=== PATIENT | female | born 1950 | race Caucasian/White ===

== ENCOUNTER 2016-05-27 19:26 | Inpatient (IN) | payer MEDICARE ==
[~2016-05-27] VITALS: Ht 165.1 cm; Wt 84.0 kg
[2016-05-27] VITALS (10 sets, daily range): BP systolic 142–176; BP diastolic 64–77; PULSE 58–87; RESP 14; TEMP 94.5–95.4; O2SAT 97–100
[2016-05-27] MEDS ORDERED: niCARdipine INJ 25 MG in SODIUM CHLOR 0.9% 250 ML INJ 250 ML IV SCH (19:45)
[2016-05-27] MEDS ORDERED: SODIUM CHLOR 0.9% 1000 ML INJ 1,000 ML IV SCH (20:00)
[2016-05-27] MEDS ORDERED: XARE20TA PO (20:05)
[2016-05-27] MEDS ORDERED: ATOR20TA15 PO (20:05)
[2016-05-27] MEDS ORDERED: LOSA100T3 PO (20:05)
[2016-05-27] MEDS ORDERED: METO25TA3 PO (20:05)
--- NOTE | 2016-05-27 20:11 | RADRPT ---
EXAM DATE/TIME: 05/27/2016 20:01 [facility] COMPARISON: No previous studies available for comparison. INDICATIONS : Intubation MEDICAL HISTORY : Unobtainable SURGICAL HISTORY : Unobtainable ENCOUNTER: Initial ACUITY: 1 day PAIN SCORE: Non-responsive. LOCATION: Bilateral chest FINDINGS: A single view of the chest demonstrates the lungs to be symmetrically aerated without evidence of mas s, infiltrate or effusion. Endotracheal tube 3.5 cm above the kwan. Nasogastric tube with tip in s tomach. The cardiomediastinal contours are unremarkable. Osseous structures are intact. CONCLUSION: No acute disease. Adequate placement of endotracheal tube. Juvencio Encarnacion MD on May 27, 2016 at 20:08 Board Certified Radiologist. This report was verified electronically.
--- NOTE | 2016-05-27 20:16 | PD ---
HPI Chief Complaint: Neuro Symptoms/ Deficits Time Seen by Provider: 19:39 Travel History International Travel<30 days: No Contact w/Intl Traveler<30days: No Traveled to known affect area: No History of Present Illness HPI 66 years old female was transferred to [facility] from [facility] in [place]. Patient and the was vacationing from [place]. Patient and was on the train. Patient's states that around 2:00 this afternoon when patient started having severe headache and then vomited and then had a syncopal episode. The train stopped. EMS was called. EMS personnel state that patient had altered status was able to follow commands and beginning without focal neurological deficit. Patient was transported to [facility] in [place]. On the way to the hospital, patient started having respiratory problem and patient was subsequently intubated. Patient has history of atrial fibrillation and hypertension and on Xarelto 20 mg daily, atorvastatin, HCTZ/ losartan, metoprolol. CT scan of the brain done at [facility] in [place] shows hemorrhage with intraventricular system and subarachnoid space and early obstructive hydrocephalus developing. Dr. Mtz, neurosurgeon at [place] was contacted and accepted transfer. Patient was transferred by air to [facility]. Patient arrived to the hospital intubated and unresponsive. Patient originally was put given propofol and Cardene drip. Cardene drip and propofol was stopped secondary to hypotension on the way to the ED. PFSH Past Medical History Hx Anticoagulant Therapy: Yes Atrial Fibrillation: Yes High Cholesterol: Yes Hypertension: Yes Immunizations Current: Yes Influenza Vaccination: Yes : 2 Para: 2 Social History Alcohol Use: Yes (social) Tobacco Use: No Substance Use: No Allergies-Medications (Allergen,Severity, Reaction): Coded Allergies: UNOBTAINABLE (Unverified , 05/27/16) pt intubated, states he believes she may be but is unsure as to what. Review of Systems ROS Limitations: Altered Mental Status, Unresponsive General / Constitutional: No: Fever Eyes: No: Visual changes HENT: Positive: Headaches Cardiovascular: No: Chest Pain or Discomfort Respiratory: No: Shortness of Breath Gastrointestinal: Positive: Vomiting, No: Abdominal Pain Genitourinary: No: Dysuria Musculoskeletal: No: Pain Skin: No Rash Neurologic: No: Weakness Psychiatric: No: Depression Endocrine: No: Polydipsia Hematologic/Lymphatic: No: Easy Bruising Physical Exam Narrative GENERAL: Well-nourished, well-developed patient. SKIN: Warm and dry. HEAD: Normocephalic. EYES: No scleral icterus. No injection or drainage. Pupils 1.5 mm nonreactive bilaterally NECK: Supple, trachea midline. No JVD or lymphadenopathy. CARDIOVASCULAR: Irregularly irregular rate and rhythm without murmurs, gallops, or rubs. RESPIRATORY: Breath sounds equal bilaterally. Patient's intubated GASTROINTESTINAL: Abdomen soft, nondistended. MUSCULOSKELETAL: No cyanosis, or edema. BACK: No obvious trauma. Neurologic exam: Patient's intubated. Deep tendon reflexes 2+ and equal. Negative Babinski bilaterally. Data Data Last Documented VS Vital Signs Date Time Temp Pulse Resp B/P Pulse Ox O2 Delivery O2 Flow Rate FiO2 05/27/16 19:39 98 50 05/27/16 19:38 87 14 142/75 Orders Electrocardiogram (05/27/16 19:41) Complete Blood Count With Diff (05/27/16 19:41) Comprehensive Metabolic Panel (05/27/16 19:41) Prothrombin Time / Inr (Pt) (05/27/16 19:41) Act Partial Throm Time (Ptt) (05/27/16 19:41) Urinalysis - C+S If Indicated (05/27/16 19:41) Thyroid Stimulating Hormone (05/27/16 19:41) Chest, Single Ap (05/27/16 19:41) Iv Access Insert/Monitor (05/27/16 19:41) Ecg Monitoring (05/27/16 19:41) Oximetry (05/27/16 19:41) Nicardipine Inj (Cardene Inj) (05/27/16 19:45) Propofol 1000 Mg/100 Ml Inj (Diprivan 10 (05/27/16 19:45) ^ Infusion (05/27/16 19:43) RASS (05/27/16 19:43) Neurological Rass Scale AGUSTIN.Q2H (05/27/16 19:43) Sodium Chlor 0.9% 1000 Ml Inj (Ns 1000 M (05/27/16 20:00) MDM Medical Decision Making Medical Screen Exam Complete: Yes Emergency Medical Condition: Yes Interpretation(s) 2016 p.m. EKG shows atrial ablation with aberrant conduction and PVCs. Differential Diagnosis Differential diagnosis including intracranial hemorrhage. Narrative Course 66 years old female with intracranial hemorrhage. Patient is on Xarelto. Patient will be admitted to [facility] by pharmacy services director and consult neurosurgeon. Ran Hummel MD May 27, 2016 20:16
[2016-05-27] MEDS: PROPOFOL 1000 MG/100 ML INJ 100 ML IV SCH ×2 (20:17→22:09)
[2016-05-27 20:30] LABS: AUTOMATED NEUTROPHIL # 13.6 TH/MM3 (1.8-7.7); BASOPHIL % 0.3 % (0.0-2.0); EOSINOPHIL % 0.1 % (0.0-4.0); HEMATOCRIT 43.8 % (35.0-46.0); LYMPH % 6.9 % (9.0-44.0); LYMPHOCYTE # 1.1 TH/MM3 (1.0-4.8); MEAN CELL VOLUME 92.4 FL (80.0-100.0); MEAN CORPUSCULAR HEMOGLOBIN 31.3 PG (27.0-34.0); MEAN CORPUSCULAR HGB CONC 33.9 % (32.0-36.0); MONO % 5.9 % (0.0-8.0); NEUT % 86.8 % (16.0-70.0); PLATELET COUNT 254 TH/MM3 (150-450); RED BLOOD COUNT 4.75 MIL/MM3 (4.00-5.30); RED CELL DISTRIBUTION WIDTH 13.6 % (11.6-17.2); WHITE BLOOD COUNT 15.7 TH/MM3 (4.0-11.0)
[2016-05-27 20:32] LABS: HEMO FLAGS AUTO DIFF
[2016-05-27 20:36] LABS: BLOOD, URINE SMALL (NEG); COMMENT (UR) CULT NOT INDICATED; CULTURE IF INDICATED CULT NOT INDICATED; GLUCOSE,URINE 300 mg/dL (NEG); KETONE, URINE 10 mg/dL (NEG); NITRITE,URINE NEG (NEG); URINE COLOR COLORLESS (YELLW/STRAW)
--- NOTE | 2016-05-27 20:39 | PD.CONS ---
HPI Service Neurosurgery Consult Requested By Dr Hummel Reason for Consult Subarachnoid hemorrhage Primary Care Physician Unknown History of Present Illness This is a 66 years old female was transferred to [facility] from [facility] for a subarachnoid hemorrhage. The patient and the was vacationing from [place]. They were on the train. Patient's states that around 2:00 this afternoon she suddenly developed severe headache and then vomited, and then had a syncopal episode. The train stopped. EMS was called. EMS personnel state that patient had altered status was able to follow commands and beginning without focal neurological deficit. No seizure activity. No tongue bitting. No tonic clonic movements. no incontinence of stool or urine. She was transported to [facility] in [place]. On the way to the hospital, she developed respiratory problem and patient was subsequently endotracheally intubated. She has history of atrial fibrillation and hypertension and was anticoagulated with Xarelto 20 mg daily. In addition she takes atorvastatin, HCTZ/ losartan, metoprolol. CT scan of the brain done at [facility] in [place] shows extensive subarachnoid and intraventricular hemorrhage with early obstructive hydrocephalus developing. She was placed given propofol and Cardene drip. Cardene drip and propofol was stopped secondary to hypotension on the way to the ED. Neurosurgical consultation was requested Review of Systems ROS Limitations: Clinical Condition, Intubated, Altered Mental Status Past Family Social History Allergies: Coded Allergies: UNOBTAINABLE (Unverified , 05/27/16) pt intubated, states he believes she may be but is unsure as to what. Past Medical History Atrial fibrillation High Cholesterol Hypertension Past Surgical History None Reported Medications Losartan-Hydrochlorothiazide 100-12.5 Mg Tab 1 Tab PO DAILY Xarelto (Rivaroxaban) 20 Mg Tab 20 Mg PO HS Metoprolol Tartrate 25 Mg Tab 25 Mg PO BID Atorvastatin (Atorvastatin Calcium) 20 Mg Tab 20 Mg PO HS Active Ordered Medications Current Medications Nicardipine HCl 25 mg/Sodium Chloride 260 ml @ 0 mls/hr TITRATE IV ; Start 05/27 at 19:45; Stop 05/27/16 at 20:58; Status DC Propofol 100 ml @ 0 mls/hr TITRATE IV Last administered on 05/28/16 12:58; Start 05/27/16 at 19:45 Sodium Chloride 1,000 ml @ 70 mls/hr [id number] IV Last administered on 20:07; Start 05/27/16 at 20:00; Stop 05/27/16 at 20:57; Status DC Prothrombin Complex Concent (Human) 4000 units/Syringe / Bag 0 ml @ 8 mls/min ONCE ONCE IV Last administered on 05/27/16 21:03; Start 05/27/16 at 20:45; Stop 05/27/16 at 20:46; Status DC Sodium Chloride (NS 1000 ml Inj) 1,000 ml @ 84 mls/hr [id number] IV Last administered on 05/28/16 20:50; Start 05/27/16 at 21:00 IV Flush (NS Flush) 2 ml UNSCH PRN IV FLUSH FLUSH AFTER USING IV ACCESS Last administered on 05/27/16 22:30; Start 05/27/16 at 20:45 IV Flush (NS Flush) 2 ml BID IV FLUSH Last administered on 05/28/16 21:00; Start 05/27/16 at 21:00 Acetaminophen (Tylenol) 650 mg Q6H PRN PO PAIN 1-10 AND/OR FEVER >101F; Start 05/27/16 at 20:45 Morphine Sulfate (Morphine Inj) 2 mg Q2H PRN IV PAIN SCALE 6 TO 10; Start 05/27 at 20:45 Famotidine (Pepcid Inj) 20 mg Q12HR IV PUSH Last administered on 05/28/16 20: 48; Start 05/27/16 at 21:00 Artificial Tears (Tears Naturale Opth Soln) 1 drop TID EACH EYE Last administered on 05/28/16 16:59; Start 05/28/16 at 09:00 Ondansetron HCl (Zofran Inj) 4 mg Q6H PRN IV NAUSEA OR VOMITING; Start at 20:45 Metoclopramide HCl (Reglan Inj) 10 mg Q6H PRN IV NAUSEA OR VOMITING; Start at 20:45 Docusate Sodium (Colace Liq) 100 mg Q12H G-TUBE Last administered on 05/28/16 20:48; Start 05/27/16 at 20:45 Albuterol/ Ipratropium (Duoneb Neb) 1 ampule Q2HR NEB PRN INH WHEEZING; Start 05/27/16 at 20:45 Miscellaneous Information 1 [id number] XX Last administered on 05/27/16 20:45; Start 05/27/16 at 20:45 Chlorhexidine Gluconate (Chlorhexidine 2% Cloth) 3 pack Taper DAILY@04 TOP Last administered on 05/28/16 03:41; Start 05/28/16 at 04:00; Stop 05/24/17 at 03:59 Chlorhexidine Gluconate 3 pack 3 pack UNSCH PRN TOP HYGIENIC CARE; Start at 20:45 Nicardipine HCl/ Sodium Chloride (Cardene Inj/NS 250 ml Inj) 260 ml @ 0 mls/hr TITRATE IV Last administered on 05/28/16 09:05; Start 05/27/16 at 21:00 Nimodipine (Nimotop) 60 mg Q4HR PO Last administered on 05/28/16 20:47; Start 05/28/16 at 00:00 Pravastatin Sodium (Pravachol) 40 mg HS PO Last administered on 05/27/16 22:27 ; Start 05/27/16 at 21:00 Hydralazine HCl 20 mg 20 mg STK-MED ONCE .ROUTE ; Start 05/27/16 at 20:54; Stop 05/27/16 at 20:55; Status DC Mannitol 50 ml @ As Directed STK-MED ONCE .ROUTE ; Start 05/27/16 at 21:07; Stop 05/27/16 at 21:08; Status DC Mannitol 50 ml @ As Directed STK-MED ONCE .ROUTE ; Start 05/27/16 at 21:12; Stop 05/27/16 at 21:13; Status DC Sodium Chloride 500 ml @ 20 mls/hr UNSCH IV Last administered on 05/27/16 22: 12; Start 05/27/16 at 21:30; Stop 06/01/16 at 21:29 Levetriacetam 100 ml @ 400 mls/hr BOLUS ONCE IV Last administered on 22:09; Start 05/27/16 at 21:30; Stop 05/27/16 at 21:44; Status DC Levetriacetam (Keppra 1000 Mg Inj) 100 ml @ 400 mls/hr Q12HR IV Last administered on 05/28/16 20:48; Start 05/28/16 at 09:00 Epinephrine HCl (EPINEPHrine (1:10,000) INJ) 1 mg STK-MED ONCE .ROUTE ; Start at 22:22; Stop 05/27/16 at 22:23; Status DC Lidocaine HCl (Xylocaine 2% Inj) 100 mg STK-MED ONCE .ROUTE ; Start 05/27/16 at 22:22; Stop 05/27/16 at 22:23; Status DC Atropine Sulfate 1 mg 1 mg STK-MED ONCE .ROUTE ; Start 05/27/16 at 22:22; Stop 05/27/16 at 22:23; Status DC Norepinephrine Bitartrate 250 ml @ As Directed STK-MED ONCE IV ; Start at 22:34; Stop 05/27/16 at 22:35; Status DC Norepinephrine Bitartrate (Levophed-Dextrose Drip) 250 ml @ 0 mls/hr TITRATE IV ; Start 05/27/16 at 22:45; Stop 05/28/16 at 02:04; Status DC Terbutaline Sulfate (Brethine Inj) 1 mg UNSCH PRN SQ For Extravasation; Start 05/27/16 at 22:45 Norepinephrine Bitartrate (Levophed Inj) 4 mg STK-MED ONCE .ROUTE ; Start at 22:46; Stop 05/27/16 at 22:47; Status DC Iohexol (Omnipaque 350 Inj) 100 ml STK-MED ONCE IV Last administered on 23:12; Start 05/27/16 at 23:12; Stop 05/27/16 at 23:13; Status DC Hydralazine HCl 20 mg 20 mg STAT ONCE IVS Last administered on 05/27/16 21:10 ; Start 05/28/16 at 01:00; Stop 05/28/16 at 01:03; Status DC Potassium Chloride 100 ml @ 50 mls/hr Q2H PRN IV For Potassium 2.8 - 3.2 mEq/ L Last administered on 2/27/17at 15:56; Start 05/28/16 at 01:45 Potassium Chloride (KCl 20 Meq Premix Inj) 100 ml @ 50 mls/hr Q2H PRN IV For Potassium 2.8 - 3.2 mEq/L; Start 05/28/16 at 01:45 Potassium Chloride 40 meq 40 meq UNSCH PRN PO/TUBE For Potassium 3.3 - 3.5 mEq/ L; Start 05/28/16 at 01:45 Potassium Chloride 100 ml @ 25 mls/hr UNSCH PRN IV For Potassium 3.3 - 3.5 mEq /L; Start 05/28/16 at 01:45 Potassium Chloride 100 ml @ 50 mls/hr Q2H PRN IV For Potassium 3.3 - 3.5 mEq/L ; Start 05/28/16 at 01:45 Magnesium Sulfate/ Sodium Chloride (Magnesium Sulfate Inj/NS Inj) 100 ml @ 50 mls/hr UNSCH PRN IV For Magnesium 0.9 - 1.1 mg/dL; Start 05/28/16 at 01:45 Magnesium Oxide 800 mg 800 mg UNSCH PRN PO For Magnesium 1.2 - 1.6 mg/dL; Start 05/28/16 at 01:45 Magnesium Sulfate/ Sodium Chloride (Magnesium Sulfate Inj/NS Inj) 100 ml @ 50 mls/hr UNSCH PRN IV For Magnesium 1.2 - 1.6 mg/dL; Start 05/28/16 at 01:45 Potassium Phosphate 2000 mg 2,000 mg Q4H PRN PO For Phosphorus < 2.5 mg/dL; Start 05/28/16 at 01:45 Sodium Phosphate/ Sodium Chloride (Sodium Phosphate Inj/NS 250 ml Inj) 250 ml @ 42 mls/hr UNSCH PRN IV For Phosphorus < 2.5 mg/dL Last administered on t 06:34; Start 05/28/16 at 01:45 Potassium Chloride (KCl 40 Meq/30 ml Liq) 40 meq UNSCH PRN PO/TUBE SEE LABEL COMMENTS; Start 05/28/16 at 01:45 Potassium Phosphate 2000 mg 2,000 mg UNSCH PRN PO/TUBE SEE LABEL COMMENTS; Start 05/28/16 at 01:45 Potassium Phosphate/Sodium Chloride (Potassium Phosphate Inj/NS 250 ml Inj) 260 ml @ 42 mls/hr UNSCH PRN IV SEE LABEL COMMENTS; Start 05/28/16 at 01:45 Mannitol 80 gm 80 gm STAT ONCE IV Last administered on 05/27/16 21:10; Start 05/28/16 at 02:15; Stop 05/28/16 at 02:16; Status DC Norepinephrine Bitartrate (Levophed-Dextrose Drip) 250 ml @ 0 mls/hr TITRATE IV ; Start 05/28/16 at 02:15 Nicardipine HCl 25 mg 25 mg STK-MED ONCE .ROUTE ; Start 05/28/16 at 06:52; Stop 05/28/16 at 06:53; Status DC Sodium Chloride (NS 250 ml Inj) 250 ml @ As Directed STK-MED ONCE .ROUTE ; Start 05/28/16 at 06:52; Stop 05/28/16 at 06:53; Status DC Nicardipine HCl (Cardene Inj) 25 mg STK-MED ONCE .ROUTE ; Start 05/28/16 at 06: 55; Stop 05/28/16 at 06:56; Status DC Epinephrine HCl (EPINEPHrine (1:10,000) INJ) 1 mg STK-MED ONCE .ROUTE ; Start at 22:20; Stop 05/28/16 at 22:21; Status DC Lidocaine HCl (Xylocaine 2% Inj) 100 mg STK-MED ONCE .ROUTE ; Start 05/28/16 at 22:20; Stop 05/28/16 at 22:21; Status DC Atropine Sulfate (Atropine Inj) 1 mg STK-MED ONCE .ROUTE ; Start 05/28/16 at 22: 20; Stop 05/28/16 at 22:21; Status DC Current Medications Nicardipine HCl 25 mg/Sodium Chloride 260 ml @ 0 mls/hr TITRATE IV ; Start 05/27 at 19:45 Propofol 100 ml @ 0 mls/hr TITRATE IV Last administered on 05/27/16 20:17; Start 05/27/16 at 19:45 Sodium Chloride 1,000 ml @ 70 mls/hr [id number] IV Last administered on 20:07; Start 05/27/16 at 20:00 Prothrombin Complex Concent (Human) 4000 units/Syringe / Bag 0 ml @ 8 mls/min ONCE ONCE IV ; Start 05/27/16 at 20:45; Stop 05/27/16 at 20:46; Status DC Sodium Chloride (NS 1000 ml Inj) 1,000 ml @ 84 mls/hr [id number] IV ; Start at 21:00 IV Flush (NS Flush) 2 ml UNSCH PRN IV FLUSH FLUSH AFTER USING IV ACCESS; Start 05/27/16 at 20:45 IV Flush (NS Flush) 2 ml BID IV FLUSH ; Start 05/27/16 at 21:00 Acetaminophen (Tylenol) 650 mg Q6H PRN PO PAIN 1-10 AND/OR FEVER >101F; Start 05/27/16 at 20:45 Morphine Sulfate (Morphine Inj) 2 mg Q2H PRN IV PAIN SCALE 6 TO 10; Start 05/27 at 20:45 Famotidine (Pepcid Inj) 20 mg Q12HR IV PUSH ; Start 05/27/16 at 21:00; Status UNV Artificial Tears (Tears Naturale Opth Soln) 1 drop TID EACH EYE ; Start at 09:00 Ondansetron HCl (Zofran Inj) 4 mg Q6H PRN IV NAUSEA OR VOMITING; Start at 20:45 Metoclopramide HCl (Reglan Inj) 10 mg Q6H PRN IV NAUSEA OR VOMITING; Start at 20:45 Docusate Sodium (Colace Liq) 100 mg Q12H G-TUBE ; Start 05/27/16 at 20:45 Albuterol/ Ipratropium (Duoneb Neb) 1 ampule Q2HR NEB PRN INH WHEEZING; Start 05/27/16 at 20:45 Miscellaneous Information 1 Q361D XX ; Start 05/27/16 at 20:45 Chlorhexidine Gluconate (Chlorhexidine 2% Cloth) 3 pack Taper DAILY@04 TOP ; Start 05/28/16 at 04:00; Stop 05/24/17 at 03:59 Chlorhexidine Gluconate 3 pack 3 pack UNSCH PRN TOP HYGIENIC CARE; Start at 20:45 Nicardipine HCl/ Sodium Chloride (Cardene Inj/NS 250 ml Inj) 260 ml @ 0 mls/hr TITRATE IV ; Start 05/27/16 at 21:00 Nimodipine (Nimotop) 60 mg Q4HR PO ; Start 05/28/16 at 00:00 Pravastatin Sodium (Pravachol) 40 mg HS PO ; Start 05/27/16 at 21:00 Hydralazine HCl (Apresoline Inj) 20 mg STK-MED ONCE .ROUTE ; Start 05/27/16 at 20:54; Stop 05/27/16 at 20:55; Status DC Family History Non contributory Social History No tobbacco. No ETOH. No illicit drug use Physical Exam Vital Signs Vital Signs Date Time Temp Pulse Resp B/P Pulse Ox O2 Delivery O2 Flow Rate FiO2 05/27/16 20:27 58 14 164/77 100 Ventilator 05/27/16 20:05 95.4 05/27/16 20:05 62 14 172/77 100 05/27/16 19:39 98 50 05/27/16 19:38 87 14 142/75 97 Physical Exam The patient is intubated and sedated. Localizes to painful stimulii with all 4 extremities. Cranial Nerves: Pupils 2-3 equal, round, reactive to light. Eyes appear conjugated. There was no nystagmus, no papilledema. Face musculature appeared symmetrical at rest. Face sensation, olfaction, visual archer, and hearing cannot be adequately assessed due to his neurological condition. The patient has a corneal reflex. The sternocleidomastoid and trapezius are symmetrical. Cervical Spine: She has nuchal rigidity Motor: His muscle tone and bulk are normal. He moves purposefully all 4 extremities symmetrically. Reflexes: Deep tendon reflexes are 1+ and symmetrical in the biceps, triceps, and brachioradialis, bilaterally, in the upper extremities. In the lower extremities, the patellar and ankles are 1+, bilaterally. There is a bilateral plantar flexion response. There is no clonus or other abnormal reflexes noted. Sensory: On examination there is response to painful stimuli, localizing with both upper and lower extremities. Cerebellar: Examination cannot be adequately assessed due to the patient's neurological condition. Laboratory Laboratory Tests Test 05/27/16 05/27/16 19:44 19:45 Urine Color COLORLESS Urine Turbidity CLEAR Urine pH 8.0 Urine Specific [place] 1.005 Urine Protein 100 Urine Glucose (UA) 300 Urine Ketones 10 Urine Occult Blood SMALL Urine Nitrite NEG Urine Bilirubin NEG Urine Urobilinogen LESS THAN 2.0 Urine Leukocyte Esterase NEG Urine RBC 13 Urine WBC LESS THAN 1 Microscopic Urinalysis Comment CULT NOT INDICATED White Blood Count 15.7 Red Blood Count 4.75 Hemoglobin 14.8 Hematocrit 43.8 Mean Corpuscular Volume 92.4 Mean Corpuscular Hemoglobin 31.3 Mean Corpuscular Hemoglobin 33.9 Concent Red Cell Distribution Width 13.6 Platelet Count 254 Mean Platelet Volume 11.1 Neutrophils (%) (Auto) 86.8 Lymphocytes (%) (Auto) 6.9 Monocytes (%) (Auto) 5.9 Eosinophils (%) (Auto) 0.1 Basophils (%) (Auto) 0.3 Neutrophils # (Auto) 13.6 Lymphocytes # (Auto) 1.1 Monocytes # (Auto) 0.9 Eosinophils # (Auto) 0.0 Basophils # (Auto) 0.0 CBC Comment AUTO DIFF Result Diagram: 05/27/161944 Imaging CT brain shows extensive SAH with intraventriculr hemorrhage and early hydrocephalus Last Impressions Chest X-Ray 05/27/161940 Signed Impressions: Service Date/Time: Friday, May 27, 2016 20:01 - CONCLUSION: No acute disease. Adequate placement of endotracheal tube. Juvencio Encarnacion MD Assessment and Plan Assessment and Plan 66 year olf female, subarachnid hemorrhage Up Gill grade 4, Bowers grade 4 Attending Statement I have reviewed her clinical and further studies. neuro checks in a serial fashion. CTA brain stat to rule out aneurysm A follow-up CT of the head will be obtained in 24 hours. I have called the [facility] neuroradiologist certification officer, Dr Immanuel Mendoza and requested a STAT cerebral angiography to be done CHANTELL after the CTA, with possible coiling of her aneurysm There is oclussion of the ventricular system with casting of the third ventricle by blood and I recommend a ventriculostomy catheter. I have discussed with her the details including the [id number] details of the surgical procedure, its indications, alternatives, risks, and potential complications. Risks and potential complications include, but are not limited to, infection, blood loss, CSF leak, partial or complete loss of sight in one or both eyes, paresis, paralysis, permanent pain or difficulty swallowing, loss of bowel or bladder function, complications from anesthesia, blood clot, stroke, myocardial infarction, or even . Consult interventional neuroradiologist for a cerebral angiography Unfortunately she is fully anticoagulated with Xarelto and needs reversal of the anticoagulation CHANTELL. Discussed with Dr Hummel and and with bi tester Dr Mica MCKINNON CHANTELL Respiratory. Full mechanical ventilation in assist contyrol mode of mechanical ventilation, pulmonary toilette, nasotracheal suction, and breathing treatments with nebulizers. Hypertension As needed Cardene to maintain systolic blood pressure less than 150. Chronic anticoagulation. Follow-up coags PT and OT eval Nutrition. NPO Renal. monitor closely urine output, BUN and creatinine Endocrine. Monitor serial Acu checks and SSI for tight control ID monitor for signs of infection Protonix for stress ulcer prophylaxis Julio hose and SCD's for DVT prophylaxis Further recommendations will be provided depending on the patient clinical evaluation and follow up studies. Discussed in detail with neurointensivist, Arcenio Morris MD May 27, 2016 20:39
[2016-05-27 20:43] LABS: ANION GAP 16 MEQ/L (5-15)
[2016-05-27] MEDS: DOCUSATE SODIUM 100 MG/10 ML UDC G-TUBE SCH (20:45)
[2016-05-27] MEDS ORDERED: METOCLOPRAMIDE HCL 10 MG/2 ML VIAL IV PRN (20:45)
[2016-05-27] MEDS ORDERED: MORPHINE SULFATE 4 MG/ML INJ IV PRN (20:45)
[2016-05-27] MEDS ORDERED: MISCELLANEOUS NURSING INFORMATION XX SCH (20:45)
[2016-05-27] MEDS ORDERED: CHLORHEXIDINE GLUCONATE 2 % 1 PACK (2 CLOTHS) TOP PRN (20:45)
[2016-05-27] MEDS ORDERED: ONDANSETRON HCL 4 MG/2 ML VIAL IV PRN (20:45)
[2016-05-27] MEDS ORDERED: PROTHROMBIN COMPLEX CONC INJ 4,000 UNITS in SYRINGE/BAG 1 EA IV ONE (20:45)
[2016-05-27] MEDS ORDERED: hydrALAZINE HCL 20 MG/ML VIAL ONE (20:54)
[2016-05-27 20:56] LABS: PLATELET ESTIMATE SMEAR NORMAL (NORMAL); PLATELET MORPHOLOGY NORMAL (NORMAL); SCAN/DIFF AUTO DIFF CONFIRMED
[2016-05-27 21:04] LABS: ALKALINE PHOSPHATASE 67 U/L (45-117); ALT (GPT) 30 U/L (10-53); AST (GOT) 26 U/L (15-37); BLOOD UREA NITROGEN 10 MG/DL (7-18); CHLORIDE 96 MEQ/L (98-107); GLOMERULAR FILTRATION RATE 93 ML/MIN (>89); SODIUM (NA) 137 MEQ/L (136-145); TOTAL BILIRUBIN ADULT 1.2 MG/DL (0.2-1.0)
[2016-05-27] MEDS: SODIUM CHLOR 0.9% 1000 ML INJ 1,000 ML IV SCH (21:04)
[2016-05-27 21:07] LABS: POTASSIUM 2.4 MEQ/L (3.5-5.1)
[2016-05-27] MEDS ORDERED: MANNITOL INJ 50 ML ONE ×2 (21:07→21:12)
[2016-05-27] MEDS ORDERED: levETIRAcetam 1000 MG INJ 100 ML IV ONE (21:30)
--- NOTE | 2016-05-27 21:42 | PD.OP ---
Operative Report Date of Surgery: May 27, 2016 Preoperative Diagnosis: SAH, IVH grade 4 Postoperative Diagnosis: SAH, IVH grade 4 Procedure: Right frontal Brokaw hole with placement of a ventriculostomy catheter Anesthesia: local Surgeon: Arcenio Mtz Luggage Attendant(s): CORTNEY Operation and Findings: INDICATIONS FOR THE PROCEDURE The patient is a 66 year old female who was brought to [facility] as a trauma alert after a fall with a subarachnoid and intraventricular hemorrhage. Placement of ventriculostomy catheter was indicated. I have discussed with her the details including the [id number] details of the surgical procedure , its indications, alternatives, risks, and potential complications. DETAILS OF THE SURGICAL PROCEDURE The frontal area was shaved, prepped and draped in the usual sterile fashion. An entry point was selected 90 millimeters posterior to the supraorbital rim and 25 millimeters from the midline. The area was infiltrated with 1% lidocaine with epinephrine. A skin incision was made with a #15 blade down to the level of the periosteum. Using a twist drill, a daquan hole was made. The dura was carefully opened with a brain needle and a ventriculostomy catheter was advanced into the ventricular system. At a depth of 65 millimeters, cerebrospinal fluid was obtained. Opening pressure was 15 centimeters of water. A specimen of cerebrospinal fluid was collected and sent to the lab for analysis of the glucose, protein, cell count and cultures. The catheter was then tunneled under the galea and externalized through a separate stab incision. The incision was closed with 3-0 nylon in a single plane. The patient tolerated the procedure well. COMPLICATIONS There were no intraoperative complications. BLOOD LOSS Blood loss was minimal. Arcenio Mtz MD May 27, 2016 21:42
--- NOTE | 2016-05-27 21:52 | RADRPT ---
EXAM DATE/TIME: 05/27/2016 21:28 [facility] COMPARISON: No previous studies available for comparison. INDICATIONS : Central line placement. MEDICAL HISTORY : None. SURGICAL HISTORY : None. ENCOUNTER: Initial ACUITY: 1 day PAIN SCORE: Non-responsive. LOCATION: Bilateral chest FINDINGS: A single view of the chest demonstrates the lungs to be symmetrically aerated without evidence of mas s, infiltrate or effusion. Endotracheal tube and nasogastric tube are unchanged. Right jugular centra l line with tip in the cavoatrial junction. The cardiomediastinal contours are unremarkable. Osseous structures are intact. CONCLUSION: Adequate placement of right jugular central line. No pneumothorax. Juvencio Encarnacion MD on May 27, 2016 at 21:47 Board Certified Radiologist. This report was verified electronically.
[2016-05-27] MEDS: SODIUM CHLORIDE 0.9% FLUSH 5 ML FLUSH IV FLUSH PRN ×2 (22:12→22:30)
[2016-05-27] MEDS: PRAVASTATIN SOD 40 MG TAB PO SCH ×2 (22:12→22:27)
[2016-05-27] MEDS: 3% SALINE INJ 500 ML IV SCH (22:12)
[2016-05-27] MEDS: SODIUM CHLORIDE 0.9% FLUSH 5 ML FLUSH IV FLUSH SCH (22:13)
[2016-05-27] MEDS ORDERED: ATROPINE SULFATE 1 MG/10 ML SYRINGE ONE (22:22)
[2016-05-27] MEDS ORDERED: EPINEPHrine HCL (1:10,000) 1 MG/10 ML SYRINGE ONE (22:22)
[2016-05-27] MEDS ORDERED: LIDOCAINE HCL 2% 100 MG/5 ML SYRINGE ONE (22:22)
--- NOTE | 2016-05-27 22:26 | HHI.HP ---
HPI Service Critical Care Medicine Primary Care Physician Unknown Admission Diagnosis intracranial hemorrhage Diagnosis: Travel History International Travel<30 Days: No Contact w/Intl Traveler <30 Da: No Traveled to Known Affected Are: No History of Present Illness 66 years old female was transferred to [facility] from [facility] in [place]. Patient and her was vacationing from [place]. They aware on the train while at around 2:00 patient started having severe headache and then vomited and then had a syncopal episode. Patient was transported to [facility] in [place]. On the way to the hospital, patient started having respiratory problem and patient was subsequently intubated. Patient has history of atrial fibrillation and hypertension and on Xarelto 20 mg daily, atorvastatin, HCTZ/ losartan, metoprolol. CT scan of the brain done at [facility] in [place] shows diffuse subarachnoid hemorrhage with intraventricular extension and early obstructive hydrocephalus developing. Dr. Mtz, neurosurgeon at [facility] was contacted and accepted transfer. Review of Systems ROS Unable to obtain patient is sedated and intubated Past Family Social History Allergies: Coded Allergies: UNOBTAINABLE (Unverified , 05/27/16) pt intubated, states he believes she may be but is unsure as to what. Past Medical History Atrial Fibrillation on Xarelto High Cholesterol Hypertension Past Surgical History None Reported Medications Reported Meds & Active Scripts Active Reported Losartan-Hydrochlorothiazide 100-12.5 Mg Tab 1 Tab PO DAILY Xarelto (Rivaroxaban) 20 Mg Tab 20 Mg PO HS Metoprolol Tartrate 25 Mg Tab 25 Mg PO BID Atorvastatin (Atorvastatin Calcium) 20 Mg Tab 20 Mg PO HS Active Ordered Medications Current Medications Medications (Trade) Dose Ordered Sig/Jerry Route PRN Reason Start Time Stop Time Status Last Admin Dose Admin Propofol 100 ml @ 0 mls/hr TITRATE IV 05/27/16 19:45 05/27/16 22:09 Sodium Chloride (NS 1000 ml Inj) 1,000 ml @ 84 mls/hr [id number] IV 05/27/16 21:00 05/27/16 21:04 IV Flush (NS Flush) 2 ml UNSCH PRN IV FLUSH FLUSH AFTER USING IV ACCESS 05/27/16 20:45 05/27/16 22:30 IV Flush (NS Flush) 2 ml BID IV FLUSH 05/27/16 21:00 05/27/16 22:13 Acetaminophen (Tylenol) 650 mg Q6H PRN PO PAIN 1-10 AND/OR FEVER >101F 05/27/16 20:45 Morphine Sulfate (Morphine Inj) 2 mg Q2H PRN IV PAIN SCALE 6 TO 10 05/27/16 20:45 Famotidine (Pepcid Inj) 20 mg Q12HR IV PUSH 05/27/16 21:00 05/27/16 22:30 Artificial Tears (Tears Naturale Opth Soln) 1 drop TID EACH EYE 05/28/16 09:00 Ondansetron HCl (Zofran Inj) 4 mg Q6H PRN IV NAUSEA OR VOMITING 05/27/16 20:45 Metoclopramide HCl (Reglan Inj) 10 mg Q6H PRN IV NAUSEA OR VOMITING 05/27/16 20:45 Docusate Sodium (Colace Liq) 100 mg Q12H G-TUBE 05/27/16 20:45 Miscellaneous Information 1 Q361D XX 05/27/16 20:45 05/27/16 20:45 Chlorhexidine Gluconate (Chlorhexidine 2% Cloth) 3 pack Taper DAILY@04 TOP 05/28/16 04:00 05/24/17 03:59 Chlorhexidine Gluconate 3 pack 3 pack UNSCH PRN TOP HYGIENIC CARE 05/27/16 20:45 Nicardipine HCl/ Sodium Chloride (Cardene Inj/NS 250 ml Inj) 260 ml @ 0 mls/hr TITRATE IV 05/27/16 21:00 Nimodipine (Nimotop) 60 mg Q4HR PO 05/28/16 00:00 05/28/16 00:15 Pravastatin Sodium 40 mg 40 mg HS PO 05/27/16 21:00 05/27/16 22:27 Sodium Chloride 500 ml @ 20 mls/hr UNSCH IV 05/27/16 21:30 06/01/16 21:29 05/27/16 22:12 Levetriacetam (Keppra 1000 Mg Inj) 100 ml @ 400 mls/hr Q12HR IV 05/28/16 09:00 Terbutaline Sulfate 1 mg 1 mg UNSCH PRN SQ For Extravasation 05/27/16 22:45 Potassium Chloride 100 ml @ 50 mls/hr Q2H PRN IV For Potassium 2.8 - 3.2 mEq/L 05/28/16 01:45 05/28/16 01:47 Potassium Chloride (KCl 20 Meq Premix Inj) 100 ml @ 50 mls/hr Q2H PRN IV For Potassium 2.8 - 3.2 mEq/L 05/28/16 01:45 Potassium Chloride 40 meq 40 meq UNSCH PRN PO/TUBE For Potassium 3.3 - 3.5 mEq/L 05/28/16 01:45 Potassium Chloride 100 ml @ 25 mls/hr UNSCH PRN IV For Potassium 3.3 - 3.5 mEq/L 05/28/16 01:45 Potassium Chloride 100 ml @ 50 mls/hr Q2H PRN IV For Potassium 3.3 - 3.5 mEq/L 05/28/16 01:45 Magnesium Sulfate/ Sodium Chloride (Magnesium Sulfate Inj/NS Inj) 100 ml @ 50 mls/hr UNSCH PRN IV For Magnesium 0.9 - 1.1 mg/dL 05/28/16 01:45 Magnesium Oxide 800 mg 800 mg UNSCH PRN PO For Magnesium 1.2 - 1.6 mg/dL 05/28/16 01:45 Magnesium Sulfate/ Sodium Chloride (Magnesium Sulfate Inj/NS Inj) 100 ml @ 50 mls/hr UNSCH PRN IV For Magnesium 1.2 - 1.6 mg/dL 05/28/16 01:45 Potassium Phosphate 2000 mg 2,000 mg Q4H PRN PO For Phosphorus < 2.5 mg/dL 05/28/16 01:45 Sodium Phosphate/ Sodium Chloride (Sodium Phosphate Inj/NS 250 ml Inj) 250 ml @ 42 mls/hr UNSCH PRN IV For Phosphorus < 2.5 mg/dL 05/28/16 01:45 Potassium Chloride (KCl 40 Meq/30 ml Liq) 40 meq UNSCH PRN PO/TUBE SEE LABEL COMMENTS 05/28/16 01:45 Potassium Phosphate 2000 mg 2,000 mg UNSCH PRN PO/TUBE SEE LABEL COMMENTS 05/28/16 01:45 Potassium Phosphate 30 mmol/ Sodium Chloride 260 ml @ 42 mls/hr UNSCH PRN IV SEE LABEL COMMENTS 05/28/16 01:45 Norepinephrine Bitartrate (Levophed-Dextrose Drip) 250 ml @ 0 mls/hr TITRATE IV 05/28/16 02:15 Family History Noncontributory Social History Negative 3 Physical Exam Vital Signs Vital Signs Date Time Temp Pulse Resp B/P Pulse Ox O2 Delivery O2 Flow Rate FiO2 05/27/16 20:55 62 14 152/67 100 05/27/16 20:45 100 50 05/27/16 20:27 58 14 164/77 100 Ventilator 05/27/16 20:05 95.4 05/27/16 20:05 62 14 172/77 100 05/27/16 19:39 98 50 05/27/16 19:38 87 14 142/75 97 Physical Exam GENERAL: Well-nourished, well-developed, critically ill patient in coma. SKIN: Warm and dry. HEAD: Normocephalic. EYES: No scleral icterus. No injection or drainage. NECK: Supple, trachea midline. No JVD or lymphadenopathy. CARDIOVASCULAR: Regular rate and rhythm without murmurs, gallops, or rubs. RESPIRATORY: Breath sounds equal bilaterally. No accessory muscle use. GASTROINTESTINAL: Abdomen soft, non-tender, nondistended. MUSCULOSKELETAL: No cyanosis, or edema. BACK: Nontender without obvious deformity. No CVA tenderness. Laboratory Laboratory Tests Test 05/27/16 05/27/16 19:44 19:45 Urine Color COLORLESS Urine Turbidity CLEAR Urine pH 8.0 Urine Specific [place] 1.005 Urine Protein 100 Urine Glucose (UA) 300 Urine Ketones 10 Urine Occult Blood SMALL Urine Nitrite NEG Urine Bilirubin NEG Urine Urobilinogen LESS THAN 2.0 Urine Leukocyte Esterase NEG Urine RBC 13 Urine WBC LESS THAN 1 Microscopic Urinalysis Comment CULT NOT INDICATED White Blood Count 15.7 Red Blood Count 4.75 Hemoglobin 14.8 Hematocrit 43.8 Mean Corpuscular Volume 92.4 Mean Corpuscular Hemoglobin 31.3 Mean Corpuscular Hemoglobin 33.9 Concent Red Cell Distribution Width 13.6 Platelet Count 254 Mean Platelet Volume 11.1 Neutrophils (%) (Auto) 86.8 Lymphocytes (%) (Auto) 6.9 Monocytes (%) (Auto) 5.9 Eosinophils (%) (Auto) 0.1 Basophils (%) (Auto) 0.3 Neutrophils # (Auto) 13.6 Lymphocytes # (Auto) 1.1 Monocytes # (Auto) 0.9 Eosinophils # (Auto) 0.0 Basophils # (Auto) 0.0 CBC Comment AUTO DIFF Differential Comment AUTO DIFF CONFIRMED Platelet Estimate NORMAL Platelet Morphology Comment NORMAL Red Cell Morphology Comment NORMAL Sodium Level 137 Potassium Level 2.4 Chloride Level 96 Carbon Dioxide Level 25.0 Anion Gap 16 Blood Urea Nitrogen 10 Creatinine 0.64 Estimat Glomerular Filtration 93 Rate Random Glucose 193 Calcium Level 9.3 Total Bilirubin 1.2 Aspartate Amino Transf 26 (AST/SGOT) Alanine Aminotransferase 30 (ALT/SGPT) Alkaline Phosphatase 67 Total Protein 8.5 Albumin 4.8 Thyroid Stimulating Hormone 2.560 3rd Gen Result Diagram: 05/27/16194405/27/161944 Imaging Last 24 hours Impressions Chest X-Ray 05/27/161940 Signed Impressions: Service Date/Time: Friday, May 27, 2016 20:01 - CONCLUSION: No acute disease. Adequate placement of endotracheal tube. Juvencio Encarnacion MD Assessment and Plan Problem List: (1) Subarachnoid hemorrhage ICD Code: I60.9 Status: Acute (2) Atrial fibrillation ICD Code: I48.91 Status: Acute (3) Coagulopathy ICD Code: D68.9 Status: Acute (4) Respiratory failure ICD Code: J96.90 Status: Acute (5) Hypertension ICD Code: I10 Status: Acute Assessment and Plan Respiratory failure - Intubated for an airway protection - No weaning until neurologically improved - No weaning until ICP well-controlled - Attempt normocapnia - CXR and ABG daily Subarachnoid hemorrhage - Up and Rubio grade IV - Bowers grade IV - Blood pressure control - Reverse Xarelto with PCC - CT angiogram a.m. - Further intervention pending based on angiographic findings - Nimodipine - Pravachol - Daily TCD's Brain edema - Due to above - External ventricular drain in place to monitor - Hypertonic saline 3% - 23% sodium chloride when necessary Hydrocephalus - EVD in place - Further management per neurosurgeon Hypertension - Nicardipine drip - SBP goal less than 140 Atrial fibrillation - Currently rate controlled - Continue telemetry DVT GI prophylaxis - Teds SCDs Pepcid Critical Care: The total critical care time was 55 minutes. Time to perform other separately billable procedures was not included in the critical care time. Arslan Nino MD May 27, 2016 22:26
--- NOTE | 2016-05-27 22:27 | PD.PROCEDR ---
Procedure Note Procedure Arterial line A time-out was completed verifying correct patient, procedure, site, positioning , and special equipment if applicable. Allens test was performed to ensure adequate perfusion. The patients right wrist was prepped and draped in sterile fashion. 1% Lidocaine was used to anesthetize the area. A 18G Arrow arterial line was introduced into the radial artery. The catheter was threaded over the guide wire and the needle was removed with appropriate pulsatile blood return. The catheter was then sutured in place to the skin and a sterile dressing applied. Perfusion to the extremity distal to the point of catheter insertion was checked and found to be adequate. Estimated Blood Loss: 1ml The patient tolerated the procedure well and there were no complications. Arslan Nino MD May 27, 2016 22:27
--- NOTE | 2016-05-27 22:27 | PD.PROCEDR ---
Procedure Note Procedure A time-out was completed verifying correct patient, procedure, site, positioning , and special equipment if applicable. The patient was placed in a dependent position appropriate for central line placement based on the vein to be cannulated. The patients right neck was prepped and draped in sterile fashion. 1% Lidocaine was used to anesthetize the surrounding skin area. A triple lumen 9 -Salvadorean Cordis catheter was introduced into the the internal jugular vein using the Seldinger technique and under ultrasound guidance. The catheter was threaded smoothly over the guide wire and appropriate blood return was obtained. Each lumen of the catheter was evacuated of air and flushed with sterile saline. The catheter was then sutured in place to the skin and a sterile dressing applied. Perfusion to the extremity distal to the point of catheter insertion was checked and found to be adequate. Estimated Blood Loss: 1ml The patient tolerated the procedure well and there were no complications. Arslan Nino MD May 27, 2016 22:27
[2016-05-27] MEDS: FAMOTIDINE 20 MG/2 ML VIAL IV PUSH SCH (22:30)
[2016-05-27] MEDS ORDERED: NOREPINEPHRINE-DEXTROSE DRIP 250 ML IV ONE (22:34)
[2016-05-27] MEDS ORDERED: TERBUTALINE INJ 1 MG/ML AMP SQ PRN (22:45)
[2016-05-27] MEDS ORDERED: NOREPINEPHRINE-DEXTROSE DRIP 250 ML IV SCH (22:45)
[2016-05-27] MEDS ORDERED: NOREPINEPHRINE 4 MG/4 ML AMP ONE (22:46)
[2016-05-27 22:51] LABS: CKMB 4.1 NG/ML (0.5-3.6)
[2016-05-27] MEDS ORDERED: IOHEXOL 350 MG/ML 10 ML VIAL (for RAD DIAG) IV ONE (23:12)
[2016-05-27 23:17] LABS: VOLUME TUBE # 1 1.5 ML
[2016-05-27 23:18] LABS: GROSS BLOOD TUBE #1 4+ (0); SUPERNATE COLOR TUBE #1 CLEAR (CLEAR); WBC TUBE #1 110 /MM3 (0-10)
[2016-05-27 23:38] LABS: CSF LYMPHOCYTES 7 %; CSF NEUTROPHILS 93 %
[2016-05-28] VITALS (22 sets, daily range): BP systolic 90–150; BP diastolic 32–58; PULSE 62–86; RESP 14–18; TEMP 95.7–99; O2SAT 100
[2016-05-28] MEDS: niMODipine 30 MG CAP PO SCH ×6 (00:15→20:47)
[2016-05-28 00:23] LABS: BLOOD GAS BASE EXCESS -0.4 mmol/L (-2-2); BLOOD GAS CARBOXYHEMOGLOBIN 0.8 % (0-4); BLOOD GAS HCO3 23 mmol/L (22-26); BLOOD GAS METHEMOGLOBIN 0.8 % (0-2); BLOOD GAS O2 HGB SATURATION 98 % (90-100); BLOOD GAS OXYGEN CONTENT 17.8 Vol % (12.0-20.0); BLOOD GAS PCO2 30 mmHg (38-42); BLOOD GAS PO2 239 mmHg (61-120); BLOOD GAS TOTAL HGB 12.5 G/DL (12.0-16.0); CRITICAL VALUE NO; FIO2 50 %; OXYGEN DEVICE VENTILATOR; TEMP CORR TO 98.6; VENT SETTINGS 14/550/5PEEP
[2016-05-28 00:24] LABS: DRAW SITE ART LINE; STAT NO
[2016-05-28 00:27] LABS: APTT (PATIENT) 23.3 SEC (24.3-30.1); PROTHROMBIN TIME - PATIENT 10.5 SEC (9.8-11.6)
[2016-05-28] MEDS ORDERED: hydrALAZINE HCL 20 MG/ML VIAL IVS ONE (01:00)
[2016-05-28] MEDS ORDERED: MAGNESIUM SULFATE INJ 4 GM in SODIUM CHLORIDE 0.9% INJ 92 ML IV PRN (01:45)
[2016-05-28] MEDS ORDERED: MAGNESIUM SULFATE INJ 2 GM in SODIUM CHLORIDE 0.9% INJ 96 ML IV PRN (01:45)
[2016-05-28] MEDS ORDERED: POTASSIUM PHOSPHATE INJ 30 MMOL in SODIUM CHLOR 0.9% 250 ML INJ 250 ML IV PRN (01:45)
[2016-05-28] MEDS ORDERED: POTASSIUM PHOSPHATE MONOBASIC 500 MG TAB PO PRN (01:45)
[2016-05-28] MEDS ORDERED: MAGNESIUM OXIDE 400 MG TAB PO PRN (01:45)
[2016-05-28] MEDS ORDERED: POTASSIUM PHOSPHATE MONOBASIC 500 MG TAB PO/TUBE PRN (01:45)
[2016-05-28] MEDS: POTASSIUM CHLOR 40 MEQ PREMIX 100 ML IV PRN ×4 (01:47→15:56)
[2016-05-28] MEDS ORDERED: MANNITOL 12.5 GM/50 ML VIAL IV ONE (02:15)
[2016-05-28] MEDS: PROPOFOL 1000 MG/100 ML INJ 100 ML IV SCH ×4 (03:23→23:16)
[2016-05-28] MEDS: CHLORHEXIDINE GLUCONATE 2 % 1 PACK (2 CLOTHS) TOP SCH (03:41)
[2016-05-28 03:47] LABS: AUTOMATED NEUTROPHIL # 10.5 TH/MM3 (1.8-7.7); BASOPHIL # 0.1 TH/MM3 (0-0.2); BASOPHIL % 0.4 % (0.0-2.0); HEMATOCRIT 37.6 % (35.0-46.0); HEMO FLAGS DIFF FINAL; LYMPH % 6.8 % (9.0-44.0); LYMPHOCYTE # 0.9 TH/MM3 (1.0-4.8); MEAN CELL VOLUME 91.4 FL (80.0-100.0); MEAN CORPUSCULAR HEMOGLOBIN 31.2 PG (27.0-34.0); MEAN CORPUSCULAR HGB CONC 34.1 % (32.0-36.0); MONO % 8.9 % (0.0-8.0); NEUT % 83.9 % (16.0-70.0); PLATELET COUNT 231 TH/MM3 (150-450); RED BLOOD COUNT 4.12 MIL/MM3 (4.00-5.30); RED CELL DISTRIBUTION WIDTH 13.8 % (11.6-17.2); WHITE BLOOD COUNT 12.5 TH/MM3 (4.0-11.0)
[2016-05-28 03:56] LABS: INTERNATIONAL NORMALIZED RATIO 0.9 RATIO; PROTHROMBIN TIME - PATIENT 10.4 SEC (9.8-11.6)
[2016-05-28 04:09] LABS: ALKALINE PHOSPHATASE 53 U/L (45-117); ALT (GPT) 29 U/L (10-53); ANION GAP 9 MEQ/L (5-15); AST (GOT) 39 U/L (15-37); BICARBONATE 26.5 MEQ/L (21.0-32.0); BLOOD UREA NITROGEN 10 MG/DL (7-18); CHLORIDE 106 MEQ/L (98-107); GLOMERULAR FILTRATION RATE 80 ML/MIN (>89); MAGNESIUM 1.9 MG/DL (1.5-2.5); SODIUM (NA) 141 MEQ/L (136-145); TOTAL BILIRUBIN ADULT 0.6 MG/DL (0.2-1.0)
[2016-05-28] MEDS: SODIUM PHOSPHATE INJ 30 MMOL in SODIUM CHLOR 0.9% 250 ML INJ 240 ML IV PRN (06:34)
[2016-05-28] MEDS: niCARdipine INJ 25 MG in SODIUM CHLOR 0.9% 250 ML INJ 250 ML IV SCH ×2 (06:34→09:05)
[2016-05-28] MEDS ORDERED: SODIUM CHLOR 0.9% 250 ML INJ 250 ML ONE (06:52)
[2016-05-28] MEDS: SODIUM CHLORIDE 0.9% FLUSH 5 ML FLUSH IV FLUSH SCH ×2 (07:58→21:00)
--- NOTE | 2016-05-28 08:01 | RADRPT ---
EXAM DATE/TIME: 05/27/2016 23:03 [facility] COMPARISON: No previous studies available for comparison. INDICATIONS : Subarachnoid hemorrhage; post ventriculostomy placement. IV CONTRAST: 100 cc Omnipaque 350 (iohexol) IV RADIATION DOSE: 27.47 CTDIvol (mGy) MEDICAL HISTORY : Hypertension. Hypercholesterolemia. Cardiovascular disease SURGICAL HISTORY : Ventriculostomy ENCOUNTER: Subsequent ACUITY: 1 day PAIN SCALE: Non-responsive LOCATION: cranial TECHNIQUE: Volumetric scanning was performed using a multi-row detector CT scanner. The data was post processed with a variety of visualization algorithms including full volume maximum intensity projection, multi -planar sliding thin slab reformation, curved planar reformation, and surface rendering techniques. Using automated exposure control and adjustment of the mA and/or kV according to patient size, radiat ion dose was kept as low as reasonably achievable to obtain optimal diagnostic quality images. FINDINGS: The distal internal carotid arteries are widely patent. The vertebral arteries are patent. The basila r artery is patent. The anterior, middle and posterior cerebral circulation is well visualized. No aneurysm is identified . No significant vasospasm is identified. There is a ventriculostomy which enters from a right sided approach. The tip is in good position. CONCLUSION: 1. No intercranial aneurysm identified by CT angiography. Perez Zaragoza MD on May 28, 2016 at 7:47 Board Certified Radiologist. This report was verified electronically.
[2016-05-28] MEDS: ARTIFICIAL TEARS OPTH SOLN 15 ML BTL EACH EYE SCH ×3 (09:00→16:59)
[2016-05-28] MEDS: FAMOTIDINE 20 MG/2 ML VIAL IV PUSH SCH ×2 (09:05→20:48)
[2016-05-28] MEDS: DOCUSATE SODIUM 100 MG/10 ML UDC G-TUBE SCH ×2 (09:05→20:48)
[2016-05-28] MEDS: SODIUM CHLOR 0.9% 1000 ML INJ 1,000 ML IV SCH ×2 (09:06→20:50)
[2016-05-28] MEDS: levETIRAcetam 1000 MG INJ 100 ML IV SCH ×2 (09:06→20:48)
--- NOTE | 2016-05-28 12:04 | RADRPT ---
EXAM DATE/TIME: 05/28/2016 07:58 [facility] COMPARISON: CTA BRAIN W 3D RECON, May 27, 2016, 23:03. INDICATIONS : Subarachnoid hemorrhage. MEDICAL HISTORY : Hypercholesterolemia. Hypertension. Cardiovascular disease Anticoagulant therapy. A-Fib. Hydrocephal us. Respiratory failure. SURGICAL HISTORY : Right frontal Sb hole with ventriculostomy catheter - Subarachnoid hemorrhage. Endotrach intubation . ENCOUNTER: Initial ACUITY: 1 day PAIN SCORE: Nonresponsive. LOCATION: Bilateral cranial and neck. Current Ultrasound: May 28 2016 [place] Ratio: 0.7 0.8 [place] Ratio: 0.7 0.5 FINDINGS: Examination performed at bedside. Real-time ultrasound with the assistance of color and spectral Dop pler was utilized to evaluate the intracerebral circulation. Time-averaged maximal velocities are ca lculated in cm/s. Study is adequate. There is no evidence for vasospasm. CONCLUSION: Negative for base line study for vasospasm.. Dillon Zaragoza MD FACR on May 28, 2016 at 11:59 Board Certified Radiologist. This report was verified electronically.
--- NOTE | 2016-05-28 12:32 | EKG ---
Date Performed: 05/27/2016 Time Performed: 19:42:51 PTAGE: 66 years EKG: ATRIAL FIBRILLATION WITH ABERRANT CONDUCTION OR VENTRICULAR PREMATURE COMPLEXES POSSIBLE LE FT VENTRICULAR HYPERTROPHY ST DEPRESSION, CONSIDER SUBENDOCARDIAL INJURY ABNORMAL ECG NO PREVIOUS TRACING DOCTOR: Brandon Gamez Interpretating Date/Time 05/28/2016 12:29:58
--- NOTE | 2016-05-28 13:33 | HHI.CCPN ---
Subjective Remarks/Hospital Course Hospital Course: 66 years old female was transferred to [facility] from [facility] in [place]. Patient and her was vacationing from [place]. They aware on the train while at around 2:00 patient started having severe headache and then vomited and then had a syncopal episode. Patient was transported to [facility] in [place]. On the way to the hospital, patient started having respiratory problem and patient was subsequently intubated. Patient has history of atrial fibrillation and hypertension and on Xarelto 20 mg daily, atorvastatin, HCTZ/ losartan, metoprolol. CT scan of the brain done at [facility] in [place] shows diffuse subarachnoid hemorrhage with intraventricular extension and early obstructive hydrocephalus developing. Dr. Mtz, neurosurgeon at [facility] was contacted and accepted transfer. Subjective: 05/28: slight improvements, withdrawing to deep nailbed pressure. on cardene for hypertension. plan for angio today or tomorrow. Objective Vital Signs Date Time Temp Pulse Resp B/P Pulse Ox O2 Delivery O2 Flow Rate FiO2 05/28/16 12:00 97.9 80 15 138/46 100 05/28/16 12:00 40 05/28/16 07:00 Mechanical Ventilator Intake and Output 05/27/16 05/27/16 05/28/16 08:00 16:00 00:00 Output Total 1000 ml Balance -1000 ml Result Diagram: 05/28/16 0339 05/28/16 0910 Other Results Laboratory Tests Test 05/28/16 00:00 Blood Gas Puncture Site ART LINE Blood Gas Patient Temperature 98.6 Blood Gas HCO3 23 mmol/L (22-26) Blood Gas Base Excess -0.4 mmol/L (-2-2) Blood Gas Oxygen Saturation 98 % (90-100) Arterial Blood pH 7.49 (7.380-7.420) Arterial Blood Partial 30 mmHg (38-42) Pressure CO2 Arterial Blood Partial 239 mmHg Pressure O2 (61-120) Arterial Blood Oxygen Content 17.8 Vol % (12.0-20.0) Arterial Blood 0.8 % (0-4) Carboxyhemoglobin Arterial Blood Methemoglobin 0.8 % (0-2) Blood Gas Hemoglobin 12.5 G/DL (12.0-16.0) Oxygen Delivery Device VENTILATOR Blood Gas Ventilator Setting 14/550/5PEEP Blood Gas Inspired Oxygen 50 % Imaging Last 24 hours Impressions Chest X-Ray 05/27/161940 Signed Impressions: Service Date/Time: Friday, May 27, 2016 20:01 - CONCLUSION: No acute disease. Adequate placement of endotracheal tube. Juvencio Encarnacion MD Objective Remarks GENERAL: elderly female, critically ill patient in coma. SKIN: Warm and dry. HEAD: Normocephalic. EYES: No scleral icterus. No injection or drainage. NECK: Supple, trachea midline. No JVD or lymphadenopathy. CARDIOVASCULAR: Regular rate and rhythm without murmurs, gallops, or rubs. RESPIRATORY: Breath sounds equal bilaterally. No accessory muscle use. GASTROINTESTINAL: Abdomen soft, non-tender, nondistended. MUSCULOSKELETAL: No cyanosis, or edema. Neuro: w/d to pain, does not open eyes. RASS -4. A/P Problem List: (1) Subarachnoid hemorrhage ICD Code: I60.9 Status: Acute (2) Atrial fibrillation ICD Code: I48.91 Status: Acute (3) Coagulopathy ICD Code: D68.9 Status: Acute (4) Respiratory failure ICD Code: J96.90 Status: Acute (5) Hypertension ICD Code: I10 Status: Acute Assessment and Plan Assessment: This is a 66yF now Post-Bleed Day 1 s/p spontaneous Subarachnoid Hemorrhage. This is CT angio negative x 1. We will continue to monitor her closely in an ICU setting. She will need angiographic conformation of no aneurysm. Nimodipine and vasospasm watch. avoid hypovolemia. frequent neuro checks. Plan by systems: Neurologic: Spontaneous subarachnoid bleed Intracranial hypertension Status post external ventricular drain Every hour neuro checks Avoid hypovolemia Nimodipine Four-vessel angiogram Minimize sedation, frequent sedation vacations as long as ICPs are controlled Elevated Head of bed Respiratory: Hypoxic hypercarbic respiratory failure Vent bundle Head of bed elevated Wean FiO2 for goal SPO2 greater than 92% Nebs every 6 and every 2 when necessary Does not meet SBT criteria while elevated ICP Cardiovascular: Hypertensive emergency Continue heart line Continue Cardene for goal BP less than 140 Nimodipine Renal: Acute kidney injury Elena for strict I's and O's -- Strict I/Os Avoid hypovolemia FEN/GI: Maintenance fluids normal saline. Avoid hypovolemia Nothing by mouth for now ICU electrolyte protocol Daily BMP Heme/ID: Coagulopathy secondary to anticoagulation use Daily CBC Status post K Centra Does not meet transfusion triggers at this time Endocrine: Hyperglycemia of critical illness -- SSI, every 6 hours, medium scale Prophylaxis: GI Prophylaxis Protonix 40 mg IV every 12 hours DVT Prophylaxis -- SCDs Holding pharmacologic DVT prophylaxis given intracranial hemorrhage Lines: 05/27 triple lumen catheter 05/27 radial arterial line Parker EVD Dispo: Remain in the ICU. She remains very critically ill. This patient remains critically ill with one or more organ systems which are or may become a threat to life. I have spent in excess of 58 minutes discontinuously in the care and management of this patient. This time is exclusive of procedures, and includes, but is not limited to, evaluation of the patient, review of the medical record, discussions with family, consultants, nursing staff, or respiratory therapy, and documentation in the medical record. Andrew Sykes MD May 28, 2016 13:33
--- NOTE | 2016-05-28 15:32 | HHI.NSPN ---
(Allison Mccullough) Note Status Status: Progress Note (Allison Mccullough) Interval History Interval History This is a 66 years old female was transferred to [facility] from [facility] for a subarachnoid hemorrhage. The patient and the was vacationing from [place]. They were on the train. Patient's states that around 2:00 this afternoon she suddenly developed severe headache and then vomited, and then had a syncopal episode. The train stopped. EMS was called. EMS personnel state that patient had altered status was able to follow commands and beginning without focal neurological deficit. No seizure activity. No tongue bitting. No tonic clonic movements. no incontinence of stool or urine. She was transported to [facility] in [place]. On the way to the hospital, she developed respiratory problem and patient was subsequently endotracheally intubated. She has history of atrial fibrillation and hypertension and was anticoagulated with Xarelto 20 mg daily. In addition she takes atorvastatin, HCTZ/ losartan, metoprolol. CT scan of the brain done at [facility] in [place] shows extensive subarachnoid and intraventricular hemorrhage with early obstructive hydrocephalus developing. She was placed given propofol and Cardene drip. Cardene drip and propofol was stopped secondary to hypotension on the way to the ED. Neurosurgical consultation was requested 05/28: intubated and sedated, s/p placement of ventriculostomy drain. CTA Brain neg for aneurysm, for cerebral angiography today, (Allison Mccullough) Labs, Micro, & Vital Signs Results Date Time Temp Pulse Resp B/P Pulse Ox O2 Delivery O2 Flow Rate FiO2 05/28/16 14:00 80 05/28/16 12:00 97.9 80 15 138/46 100 05/28/16 12:00 40 05/28/16 12:00 80 05/28/16 11:27 100 40 05/28/16 10:00 68 05/28/16 08:00 97.5 66 14 126/45 100 05/28/16 08:00 40 05/28/16 08:00 68 05/28/16 07:30 100 40 05/28/16 07:00 95 Mechanical Ventilator 40 05/28/16 06:00 62 05/28/16 04:00 40 05/28/16 04:00 68 05/28/16 04:00 96.1 68 14 130/52 100 05/28/16 02:00 67 05/28/16 01:00 40 05/28/16 00:57 100 40 05/28/16 00:15 130/46 05/28/16 00:08 100 40 05/28/16 00:08 40 05/28/16 00:00 50 05/28/16 00:00 95.7 86 14 90/32 100 05/28/16 00:00 86 05/27/16 22:50 100 100 05/27/16 22:30 144/64 05/27/16 22:00 78 05/27/16 21:00 94.5 74 14 176/75 100 05/27/16 20:55 62 14 152/67 100 05/27/16 20:45 50 05/27/16 20:45 72 05/27/16 20:45 100 50 05/27/16 20:27 58 14 164/77 100 Ventilator 05/27/16 20:05 95.4 05/27/16 20:05 62 14 172/77 100 05/27/16 19:39 98 50 05/27/16 19:38 87 14 142/75 97 05/28/16 07:00 Intake Total 1491 ml Output Total 3250 ml Balance -1759 ml Constitutional Vital Signs Date Time Temp Pulse Resp B/P Pulse Ox O2 Delivery O2 Flow Rate FiO2 05/28/16 14:00 80 05/28/16 12:00 97.9 80 15 138/46 100 05/28/16 12:00 40 05/28/16 12:00 80 05/28/16 11:27 100 40 05/28/16 10:00 68 05/28/16 08:00 97.5 66 14 126/45 100 05/28/16 08:00 40 05/28/16 08:00 68 05/28/16 07:30 100 40 05/28/16 07:00 95 Mechanical Ventilator 40 05/28/16 06:00 62 05/28/16 04:00 40 05/28/16 04:00 68 05/28/16 04:00 96.1 68 14 130/52 100 2/27/17 02:00 67 05/28/16 01:00 40 05/28/16 00:57 100 40 05/28/16 00:15 130/46 05/28/16 00:08 100 40 05/28/16 00:08 40 05/28/16 00:00 50 05/28/16 00:00 95.7 86 14 90/32 100 05/28/16 00:00 86 05/27/16 22:50 100 100 05/27/16 22:30 144/64 05/27/16 22:00 78 05/27/16 21:00 94.5 74 14 176/75 100 05/27/16 20:55 62 14 152/67 100 05/27/16 20:45 50 05/27/16 20:45 72 05/27/16 20:45 100 50 05/27/16 20:27 58 14 164/77 100 Ventilator 05/27/16 20:05 95.4 05/27/16 20:05 62 14 172/77 100 05/27/16 19:39 98 50 05/27/16 19:38 87 14 142/75 97 05/28/16 07:00 Intake Total 1491 ml Output Total 3250 ml Balance -1759 ml (Allison Mccullough) Review of Systems/Exam Exam Ms. Michaels is intubated and sedated. Does not open eyes or follow commands. Cranial Nerves: Pupils 4 mm equal reactive b/l, conjugate gaze. Right ventriculostomy drain in place, blood tinged CSF Sensorimotor: very minimal response to pain x 4 extremities Reflexes: Deep tendon reflexes are trace throughout. Plantars silent b/l. Cerebellar: Examination cannot be adequately assessed due to the patient's neurological condition. (Allison Mccullough) Exam The patient is intubated and sedated. Mild withdrawal to pain Cranial Nerves: Pupils 2-3 equal, round, reactive to light. Eyes appear conjugated. There was no nystagmus, no papilledema. Face musculature appeared symmetrical at rest. Face sensation, olfaction, visual archer, and hearing cannot be adequately assessed due to his neurological condition. The patient has a corneal reflex. The sternocleidomastoid and trapezius are symmetrical. Cervical Spine: She has nuchal rigidity Motor: Mild flexion response to pain all 4 extremities symmetrically. Reflexes: Deep tendon reflexes are 1+ and symmetrical in the biceps, triceps, and brachioradialis, bilaterally, in the upper extremities. In the lower extremities, the patellar and ankles are 1+, bilaterally. There is a bilateral plantar flexion response. There is no clonus or other abnormal reflexes noted. Sensory: On examination there is mild flexion response to painful stimuli with both upper and lower extremities. Cerebellar: Examination cannot be adequately assessed due to the patient's neurological condition. (Arcenio Mtz MD) Medications Current Medications Current Medications Medications (Trade) Dose Ordered Sig/Jerry Route PRN Reason Start Time Stop Time Status Last Admin Dose Admin Propofol 100 ml @ 0 mls/hr TITRATE IV 05/27/16 19:45 05/28/16 12:58 Sodium Chloride (NS 1000 ml Inj) 1,000 ml @ 84 mls/hr [id number] IV 05/27/16 21:00 05/28/16 09:06 IV Flush (NS Flush) 2 ml UNSCH PRN IV FLUSH FLUSH AFTER USING IV ACCESS 05/27/16 20:45 05/27/16 22:30 IV Flush (NS Flush) 2 ml BID IV FLUSH 05/27/16 21:00 05/28/16 07:58 Acetaminophen (Tylenol) 650 mg Q6H PRN PO PAIN 1-10 AND/OR FEVER >101F 05/27/16 20:45 Morphine Sulfate (Morphine Inj) 2 mg Q2H PRN IV PAIN SCALE 6 TO 10 05/27/16 20:45 Famotidine (Pepcid Inj) 20 mg Q12HR IV PUSH 05/27/16 21:00 05/28/16 09:05 Artificial Tears (Tears Naturale Opth Soln) 1 drop TID EACH EYE 05/28/16 09:00 05/28/16 12:58 Ondansetron HCl (Zofran Inj) 4 mg Q6H PRN IV NAUSEA OR VOMITING 05/27/16 20:45 Metoclopramide HCl (Reglan Inj) 10 mg Q6H PRN IV NAUSEA OR VOMITING 05/27/16 20:45 Docusate Sodium (Colace Liq) 100 mg Q12H G-TUBE 05/27/16 20:45 05/28/16 09:05 Miscellaneous Information 1 Q361D XX 05/27/16 20:45 05/27/16 20:45 Chlorhexidine Gluconate (Chlorhexidine 2% Cloth) 3 pack Taper DAILY@04 TOP 05/28/16 04:00 05/24/17 03:59 05/28/16 03:41 Chlorhexidine Gluconate 3 pack 3 pack UNSCH PRN TOP HYGIENIC CARE 05/27/16 20:45 Nicardipine HCl/ Sodium Chloride (Cardene Inj/NS 250 ml Inj) 260 ml @ 0 mls/hr TITRATE IV 05/27/16 21:00 05/28/16 09:05 Nimodipine (Nimotop) 60 mg Q4HR PO 05/28/16 00:00 05/28/16 12:57 Pravastatin Sodium 40 mg 40 mg HS PO 05/27/16 21:00 05/27/16 22:27 Sodium Chloride 500 ml @ 20 mls/hr UNSCH IV 05/27/16 21:30 06/01/16 21:29 05/27/16 22:12 Levetriacetam (Keppra 1000 Mg Inj) 100 ml @ 400 mls/hr Q12HR IV 05/28/16 09:00 05/28/16 09:06 Terbutaline Sulfate 1 mg 1 mg UNSCH PRN SQ For Extravasation 05/27/16 22:45 Potassium Chloride 100 ml @ 50 mls/hr Q2H PRN IV For Potassium 2.8 - 3.2 mEq/L 05/28/16 01:45 05/28/16 03:26 Potassium Chloride (KCl 20 Meq Premix Inj) 100 ml @ 50 mls/hr Q2H PRN IV For Potassium 2.8 - 3.2 mEq/L 05/28/16 01:45 Potassium Chloride 40 meq 40 meq UNSCH PRN PO/TUBE For Potassium 3.3 - 3.5 mEq/L 05/28/16 01:45 Potassium Chloride 100 ml @ 25 mls/hr UNSCH PRN IV For Potassium 3.3 - 3.5 mEq/L 05/28/16 01:45 Potassium Chloride 100 ml @ 50 mls/hr Q2H PRN IV For Potassium 3.3 - 3.5 mEq/L 05/28/16 01:45 Magnesium Sulfate/ Sodium Chloride (Magnesium Sulfate Inj/NS Inj) 100 ml @ 50 mls/hr UNSCH PRN IV For Magnesium 0.9 - 1.1 mg/dL 05/28/16 01:45 Magnesium Oxide 800 mg 800 mg UNSCH PRN PO For Magnesium 1.2 - 1.6 mg/dL 05/28/16 01:45 Magnesium Sulfate/ Sodium Chloride (Magnesium Sulfate Inj/NS Inj) 100 ml @ 50 mls/hr UNSCH PRN IV For Magnesium 1.2 - 1.6 mg/dL 05/28/16 01:45 Potassium Phosphate 2000 mg 2,000 mg Q4H PRN PO For Phosphorus < 2.5 mg/dL 05/28/16 01:45 Sodium Phosphate/ Sodium Chloride (Sodium Phosphate Inj/NS 250 ml Inj) 250 ml @ 42 mls/hr UNSCH PRN IV For Phosphorus < 2.5 mg/dL 05/28/16 01:45 05/28/16 06:34 Potassium Chloride (KCl 40 Meq/30 ml Liq) 40 meq UNSCH PRN PO/TUBE SEE LABEL COMMENTS 05/28/16 01:45 Potassium Phosphate 2000 mg 2,000 mg UNSCH PRN PO/TUBE SEE LABEL COMMENTS 05/28/16 01:45 Potassium Phosphate 30 mmol/ Sodium Chloride 260 ml @ 42 mls/hr UNSCH PRN IV SEE LABEL COMMENTS 05/28/16 01:45 Norepinephrine Bitartrate (Levophed-Dextrose Drip) 250 ml @ 0 mls/hr TITRATE IV 05/28/16 02:15 (Allison Mccullough) Current Medications Current Medications Nicardipine HCl 25 mg/Sodium Chloride 260 ml @ 0 mls/hr TITRATE IV ; Start 05/27 at 19:45; Stop 05/27/16 at 20:58; Status DC Propofol 100 ml @ 0 mls/hr TITRATE IV Last administered on 05/28/16 12:58; Start 05/27/16 at 19:45 Sodium Chloride 1,000 ml @ 70 mls/hr [id number] IV Last administered on 20:07; Start 05/27/16 at 20:00; Stop 05/27/16 at 20:57; Status DC Prothrombin Complex Concent (Human) 4000 units/Syringe / Bag 0 ml @ 8 mls/min ONCE ONCE IV Last administered on 05/27/16 21:03; Start 05/27/16 at 20:45; Stop 05/27/16 at 20:46; Status DC Sodium Chloride (NS 1000 ml Inj) 1,000 ml @ 84 mls/hr [id number] IV Last administered on 05/28/16 20:50; Start 05/27/16 at 21:00 IV Flush (NS Flush) 2 ml UNSCH PRN IV FLUSH FLUSH AFTER USING IV ACCESS Last administered on 05/27/16 22:30; Start 05/27/16 at 20:45 IV Flush (NS Flush) 2 ml BID IV FLUSH Last administered on 05/28/16 21:00; Start 05/27/16 at 21:00 Acetaminophen (Tylenol) 650 mg Q6H PRN PO PAIN 1-10 AND/OR FEVER >101F; Start 05/27/16 at 20:45 Morphine Sulfate (Morphine Inj) 2 mg Q2H PRN IV PAIN SCALE 6 TO 10; Start 05/27 at 20:45 Famotidine (Pepcid Inj) 20 mg Q12HR IV PUSH Last administered on 05/28/16 20: 48; Start 05/27/16 at 21:00 Artificial Tears (Tears Naturale Opth Soln) 1 drop TID EACH EYE Last administered on 05/28/16 16:59; Start 05/28/16 at 09:00 Ondansetron HCl (Zofran Inj) 4 mg Q6H PRN IV NAUSEA OR VOMITING; Start at 20:45 Metoclopramide HCl (Reglan Inj) 10 mg Q6H PRN IV NAUSEA OR VOMITING; Start at 20:45 Docusate Sodium (Colace Liq) 100 mg Q12H G-TUBE Last administered on 05/28/16 20:48; Start 05/27/16 at 20:45 Albuterol/ Ipratropium (Duoneb Neb) 1 ampule Q2HR NEB PRN INH WHEEZING; Start 05/27/16 at 20:45 Miscellaneous Information 1 Q361D XX Last administered on 05/27/16 20:45; Start 05/27/16 at 20:45 Chlorhexidine Gluconate (Chlorhexidine 2% Cloth) 3 pack Taper DAILY@04 TOP Last administered on 05/28/16 03:41; Start 05/28/16 at 04:00; Stop 05/24/17 at 03:59 Chlorhexidine Gluconate 3 pack 3 pack UNSCH PRN TOP HYGIENIC CARE; Start at 20:45 Nicardipine HCl/ Sodium Chloride (Cardene Inj/NS 250 ml Inj) 260 ml @ 0 mls/hr TITRATE IV Last administered on 05/28/16 09:05; Start 05/27/16 at 21:00 Nimodipine (Nimotop) 60 mg Q4HR PO Last administered on 05/28/16 20:47; Start 05/28/16 at 00:00 Pravastatin Sodium (Pravachol) 40 mg HS PO Last administered on 05/27/16 22:27 ; Start 05/27/16 at 21:00 Hydralazine HCl 20 mg 20 mg STK-MED ONCE .ROUTE ; Start 05/27/16 at 20:54; Stop 05/27/16 at 20:55; Status DC Mannitol 50 ml @ As Directed STK-MED ONCE .ROUTE ; Start 05/27/16 at 21:07; Stop 05/27/16 at 21:08; Status DC Mannitol 50 ml @ As Directed STK-MED ONCE .ROUTE ; Start 05/27/16 at 21:12; Stop 05/27/16 at 21:13; Status DC Sodium Chloride 500 ml @ 20 mls/hr UNSCH IV Last administered on 05/27/16 22: 12; Start 05/27/16 at 21:30; Stop 06/01/16 at 21:29 Levetriacetam 100 ml @ 400 mls/hr BOLUS ONCE IV Last administered on 22:09; Start 05/27/16 at 21:30; Stop 05/27/16 at 21:44; Status DC Levetriacetam (Keppra 1000 Mg Inj) 100 ml @ 400 mls/hr Q12HR IV Last administered on 05/28/16 20:48; Start 05/28/16 at 09:00 Epinephrine HCl (EPINEPHrine (1:10,000) INJ) 1 mg STK-MED ONCE .ROUTE ; Start at 22:22; Stop 05/27/16 at 22:23; Status DC Lidocaine HCl (Xylocaine 2% Inj) 100 mg STK-MED ONCE .ROUTE ; Start 05/27/16 at 22:22; Stop 05/27/16 at 22:23; Status DC Atropine Sulfate 1 mg 1 mg STK-MED ONCE .ROUTE ; Start 05/27/16 at 22:22; Stop 05/27/16 at 22:23; Status DC Norepinephrine Bitartrate 250 ml @ As Directed STK-MED ONCE IV ; Start at 22:34; Stop 05/27/16 at 22:35; Status DC Norepinephrine Bitartrate (Levophed-Dextrose Drip) 250 ml @ 0 mls/hr TITRATE IV ; Start 05/27/16 at 22:45; Stop 05/28/16 at 02:04; Status DC Terbutaline Sulfate (Brethine Inj) 1 mg UNSCH PRN SQ For Extravasation; Start 05/27/16 at 22:45 Norepinephrine Bitartrate (Levophed Inj) 4 mg STK-MED ONCE .ROUTE ; Start at 22:46; Stop 05/27/16 at 22:47; Status DC Iohexol (Omnipaque 350 Inj) 100 ml STK-MED ONCE IV Last administered on 23:12; Start 05/27/16 at 23:12; Stop 05/27/16 at 23:13; Status DC Hydralazine HCl 20 mg 20 mg STAT ONCE IVS Last administered on 05/27/16 21:10 ; Start 05/28/16 at 01:00; Stop 05/28/16 at 01:03; Status DC Potassium Chloride 100 ml @ 50 mls/hr Q2H PRN IV For Potassium 2.8 - 3.2 mEq/ L Last administered on 05/28/16t 15:56; Start 05/28/16 at 01:45 Potassium Chloride (KCl 20 Meq Premix Inj) 100 ml @ 50 mls/hr Q2H PRN IV For Potassium 2.8 - 3.2 mEq/L; Start 05/28/16 at 01:45 Potassium Chloride 40 meq 40 meq UNSCH PRN PO/TUBE For Potassium 3.3 - 3.5 mEq/ L; Start 05/28/16 at 01:45 Potassium Chloride 100 ml @ 25 mls/hr UNSCH PRN IV For Potassium 3.3 - 3.5 mEq /L; Start 05/28/16 at 01:45 Potassium Chloride 100 ml @ 50 mls/hr Q2H PRN IV For Potassium 3.3 - 3.5 mEq/L ; Start 05/28/16 at 01:45 Magnesium Sulfate/ Sodium Chloride (Magnesium Sulfate Inj/NS Inj) 100 ml @ 50 mls/hr UNSCH PRN IV For Magnesium 0.9 - 1.1 mg/dL; Start 05/28/16 at 01:45 Magnesium Oxide 800 mg 800 mg UNSCH PRN PO For Magnesium 1.2 - 1.6 mg/dL; Start 05/28/16 at 01:45 Magnesium Sulfate/ Sodium Chloride (Magnesium Sulfate Inj/NS Inj) 100 ml @ 50 mls/hr UNSCH PRN IV For Magnesium 1.2 - 1.6 mg/dL; Start 05/28/16 at 01:45 Potassium Phosphate 2000 mg 2,000 mg Q4H PRN PO For Phosphorus < 2.5 mg/dL; Start 05/28/16 at 01:45 Sodium Phosphate/ Sodium Chloride (Sodium Phosphate Inj/NS 250 ml Inj) 250 ml @ 42 mls/hr UNSCH PRN IV For Phosphorus < 2.5 mg/dL Last administered on 06:34; Start 05/28/16 at 01:45 Potassium Chloride (KCl 40 Meq/30 ml Liq) 40 meq UNSCH PRN PO/TUBE SEE LABEL COMMENTS; Start 05/28/16 at 01:45 Potassium Phosphate 2000 mg 2,000 mg UNSCH PRN PO/TUBE SEE LABEL COMMENTS; Start 05/28/16 at 01:45 Potassium Phosphate/Sodium Chloride (Potassium Phosphate Inj/NS 250 ml Inj) 260 ml @ 42 mls/hr UNSCH PRN IV SEE LABEL COMMENTS; Start 05/28/16 at 01:45 Mannitol 80 gm 80 gm STAT ONCE IV Last administered on 05/27/16t 21:10; Start 05/28/16 at 02:15; Stop 05/28/16 at 02:16; Status DC Norepinephrine Bitartrate (Levophed-Dextrose Drip) 250 ml @ 0 mls/hr TITRATE IV ; Start 05/28/16 at 02:15 Nicardipine HCl 25 mg 25 mg STK-MED ONCE .ROUTE ; Start 05/28/16 at 06:52; Stop 05/28/16 at 06:53; Status DC Sodium Chloride (NS 250 ml Inj) 250 ml @ As Directed STK-MED ONCE .ROUTE ; Start 05/28/16 at 06:52; Stop 05/28/16 at 06:53; Status DC Nicardipine HCl (Cardene Inj) 25 mg STK-MED ONCE .ROUTE ; Start 05/28/16 at 06: 55; Stop 05/28/16 at 06:56; Status DC Epinephrine HCl (EPINEPHrine (1:10,000) INJ) 1 mg STK-MED ONCE .ROUTE ; Start at 22:20; Stop 05/28/16 at 22:21; Status DC Lidocaine HCl (Xylocaine 2% Inj) 100 mg STK-MED ONCE .ROUTE ; Start 05/28/16 at 22:20; Stop 05/28/16 at 22:21; Status DC Atropine Sulfate (Atropine Inj) 1 mg STK-MED ONCE .ROUTE ; Start 05/28/16 at 22: 20; Stop 05/28/16 at 22:21; Status DC (Arcenio Mtz MD) Medical Decision Making MDM Remarks 66 y/o female with subarachnoid hemorrhage suspected intracranial aneurysm (Allison Mccullough) MDM Remarks Last Impressions Transcranial Doppler Study Complete 05/28/16 0000 Signed Impressions: Service Date/Time: Saturday, May 28, 2016 07:58 - CONCLUSION: Negative for base line study for vasospasm.. Dillon Zaragoza MD FACR Chest X-Ray 05/27/16 194 Signed Impressions: Service Date/Time: Friday, May 27, 2016 20:01 - CONCLUSION: No acute disease. Adequate placement of endotracheal tube. Juvencio Encarnacion MD Head CTA 05/27/16 0000 Signed Impressions: Service Date/Time: Friday, May 27, 2016 23:03 - CONCLUSION: 1. No intercranial aneurysm identified by CT angiography. Perez Zaragoza MD (Arcenio Mtz MD) Plan Plan Remarks CTA Head reviewed, for cerebral angiography today, cont ventriculostomy draining cont current care cont nimodipine nonchemical dvt prophylaxis in view of ICH (Allison Mccullough) Attending Statement I have reviewed her CTA brain, without evidence of aneurysm A follow-up angiography is pending, to be done CHANTELL. Continue neuro checks in a serial fashion. CT of the head will be obtained in [address]. [address] Herrera the need for angiography CHANTELL Status post ventriculostomy catheter. Drain CSF. Monitor ICP and CPP's She is fully anticoagulated with Xarelto and received KCENTRA last night Respiratory. Continue full mechanical ventilation in assist contyrol mode of mechanical ventilation, pulmonary toilette, nasotracheal suction, and breathing treatments with nebulizers. Hypertension As needed Cardene to maintain systolic blood pressure less than 150. Chronic anticoagulation. Follow-up coags PT and OT eval pending Nutrition. NPO Renal. Continue to monitor closely urine output, BUN and creatinine Endocrine. Continue to Monitor serial Acu checks and SSI for tight control ID Continue to monitor for signs of infection Continue Protonix for stress ulcer prophylaxis Continue Julio hose and SCD's for DVT prophylaxis DIscussed with Dr Yusuf Further recommendations will be provided depending on the patient clinical evaluation and follow up studies. The exam, history, and the medical decision-making described in the above note were completed with the assistance of the mid-level provider. I reviewed and agree with the findings presented. I attest that I had a [id number] encounter with the patient on the same day, and personally performed and documented my assessment and findings in the medical record. (Arcenio Mtz MD) Allison Mccullough May 28, 2016 15:32 Arcenio Mtz MD May 28, 2016 22:57
[2016-05-28 15:35] LABS: BICARBONATE 23.1 MEQ/L (21.0-32.0); MAGNESIUM 1.8 MG/DL (1.5-2.5)
[2016-05-28] MEDS ORDERED: ATROPINE SULFATE 1 MG/10 ML SYRINGE ONE (22:20)
[2016-05-28] MEDS ORDERED: EPINEPHrine HCL (1:10,000) 1 MG/10 ML SYRINGE ONE (22:20)
[2016-05-28] MEDS ORDERED: LIDOCAINE HCL 2% 100 MG/5 ML SYRINGE ONE (22:20)
[2016-05-28] MEDS: 3% SALINE INJ 500 ML IV SCH (23:16)
[2016-05-28] MEDS ORDERED: VERAPAMIL HCL 5 MG/2 ML VIAL ONE (23:45)
[2016-05-29] VITALS (16 sets, daily range): BP systolic 128–164; BP diastolic 41–67; PULSE 80–114; RESP 18–25; TEMP 96.6–98.8; O2SAT 95–100
[2016-05-29] MEDS ORDERED: IODIXANOL 320 MG/ML 50 ML VIAL (for RAD SPEC) I-ARTERIAL ONE (01:00)
--- NOTE | 2016-05-29 01:00 | PD.RAD ---
Post Procedure Progress Note Pre Procedure Diagnosis: (1) Subarachnoid hemorrhage Post Procedure Diagnosis: (1) Subarachnoid hemorrhage Procedure Date: May 29, 2016 Supervising Radiologist: Brandon Herrera Proceduralist/Assist: Al Helton RT(R), RT Casey(R)() Anesthesia: Local Plan of Activity Patient to Unit: Critical Care Patient Condition: Critical See PACS Report for procedural detail/treatment Vascular-Arterial Procedure Procedure 1 Procedure Site: Cerebral Procedure(s): Angiogram (negative except for FMD could not access left vertebral) Brandon Herrera MD May 29, 2016 01:00
[2016-05-29] MEDS: niMODipine 30 MG CAP PO SCH ×6 (02:14→20:36)
--- NOTE | 2016-05-29 02:17 | RADRPT ---
EXAM DATE/TIME: 05/29/2016 01:20 [facility] COMPARISON: CTA BRAIN W 3D RECON, May 27, 2016, 23:03. EXTERNAL COMPARISON : [facility], INDICATIONS : Follow-up intracranial hemorrhage. RADIATION DOSE: 56.35 CTDIvol (mGy) MEDICAL HISTORY : Hypertension. Hypercholesterolemia. SURGICAL HISTORY : [employer] ENCOUNTER: Subsequent ACUITY: 1 day PAIN SCALE: Non-responsive LOCATION: cranial TECHNIQUE: Multiple contiguous axial images were obtained of the head. Using automated exposure control and adj ustment of the mA and/or kV according to patient size, radiation dose was kept as low as reasonably a chievable to obtain optimal diagnostic quality images. FINDINGS: Comparison a CTA brain May 27. Right frontal ventriculostomy tube remains in place. Ventricular size is slightly decreased from prior exam. There is extensive subarachnoid hemorrhage predominantly around the brainstem and also the convexities, right greater than left. There is also intraventricula r hemorrhage especially in the third ventricle and around the foramen of Monro and also in the superintendent construction ior aspect of the lateral ventricles. There is effacement of the perimesencephalic cisterns. Brainste m is displaced slightly to the right with hemorrhage around the brainstem. CONCLUSION: 1. Right frontal ventriculostomy tube unchanged since CTA brain. Ventricular size slightly decreased. There is cerebral swelling and effacement of the perimesencephalic cisterns. Brainstem displaced sli ghtly to the right similar to prior exam. Extensive subarachnoid and intraventricular hemorrhage pres ent. Eduardo Stone MD on May 29, 2016 at 2:11 Board Certified Radiologist. This report was verified electronically.
[2016-05-29] MEDS: CHLORHEXIDINE GLUCONATE 2 % 1 PACK (2 CLOTHS) TOP SCH (04:00)
[2016-05-29 04:54] LABS: BASOPHIL # 0.1 TH/MM3 (0-0.2); BASOPHIL % 0.5 % (0.0-2.0); EOSINOPHIL % 0.1 % (0.0-4.0); HEMATOCRIT 34.4 % (35.0-46.0); HEMO FLAGS DIFF FINAL; LYMPH % 7.4 % (9.0-44.0); LYMPHOCYTE # 0.8 TH/MM3 (1.0-4.8); MEAN CELL VOLUME 92.2 FL (80.0-100.0); MEAN CORPUSCULAR HEMOGLOBIN 31.9 PG (27.0-34.0); MEAN CORPUSCULAR HGB CONC 34.6 % (32.0-36.0); MONO % 10.3 % (0.0-8.0); NEUT % 81.7 % (16.0-70.0); PLATELET COUNT 218 TH/MM3 (150-450); RED BLOOD COUNT 3.73 MIL/MM3 (4.00-5.30); RED CELL DISTRIBUTION WIDTH 14.3 % (11.6-17.2)
[2016-05-29 05:22] LABS: BICARBONATE 22.6 MEQ/L (21.0-32.0); POTASSIUM 3.3 MEQ/L (3.5-5.1)
[2016-05-29] MEDS: POTASSIUM CHLOR 40 MEQ PREMIX 100 ML IV PRN (05:51)
[2016-05-29] MEDS ORDERED: DEXTROSE 50% IN WATER 50 ML VIAL(D50) IV PUSH PRN (07:30)
--- NOTE | 2016-05-29 07:37 | HHI.CCPN ---
Subjective Remarks/Hospital Course Hospital Course: 66 years old female was transferred to [facility] from [facility] in [place]. Patient and her was vacationing from [place]. They aware on the train while at around 2:00 patient started having severe headache and then vomited and then had a syncopal episode. Patient was transported to [facility] in [place]. On the way to the hospital, patient started having respiratory problem and patient was subsequently intubated. Patient has history of atrial fibrillation and hypertension and on Xarelto 20 mg daily, atorvastatin, HCTZ/ losartan, metoprolol. CT scan of the brain done at [facility] in [place] shows diffuse subarachnoid hemorrhage with intraventricular extension and early obstructive hydrocephalus developing. Dr. Mtz, neurosurgeon at [place] was contacted and accepted transfer. Subjective: 05/28: slight improvements, withdrawing to deep nailbed pressure. on cardene for hypertension. plan for angio today or tomorrow. 05/29: worsening neuro exam overnight. repeat head CT with effacement, slight compression of the brainstem. angiogram overnight without evidence of aneurysm or vasospasm. more hypotensive this morning on norepinephrine. flaccid x 4, no cough or gag. propofol turned off at 0600. Objective Vital Signs Date Time Temp Pulse Resp B/P Pulse Ox O2 Delivery O2 Flow Rate FiO2 05/29/16 04:06 100 40 05/29/16 04:00 97.0 80 18 142/46 05/28/16 19:00 Mechanical Ventilator Intake and Output 05/28/16 05/28/16 05/29/16 08:00 16:00 00:00 Intake Total 1491 ml 1368 ml 1322 ml Output Total 2250 ml 536 ml 512 ml Balance -759 ml 832 ml 810 ml Result Diagram: 05/29/16 0441 05/29/16 0441 Imaging Last 24 hours Impressions Chest X-Ray 05/27/16 194 Signed Impressions: Service Date/Time: Friday, May 27, 2016 20:01 - CONCLUSION: No acute disease. Adequate placement of endotracheal tube. Juvencio Encarnacion MD Objective Remarks GENERAL: elderly female, critically ill patient in coma. SKIN: Warm and dry. HEAD: Normocephalic. EYES: No scleral icterus. No injection or drainage. NECK: Supple, trachea midline. No JVD or lymphadenopathy. CARDIOVASCULAR: Regular rate and rhythm without murmurs, gallops, or rubs. RESPIRATORY: Breath sounds equal bilaterally. No accessory muscle use. GASTROINTESTINAL: Abdomen soft, non-tender, nondistended. MUSCULOSKELETAL: No cyanosis, or edema. Neuro: to my exam this morning on propofol hold, opens eyes weakly to sternal rub and weakly squeezed hand and wiggled toes on right to command. no movement on left. A/P Problem List: (1) Subarachnoid hemorrhage ICD Code: I60.9 Status: Acute (2) Atrial fibrillation ICD Code: I48.91 Status: Acute (3) Coagulopathy ICD Code: D68.9 Status: Acute (4) Respiratory failure ICD Code: J96.90 Status: Acute (5) Hypertension ICD Code: I10 Status: Acute Assessment and Plan Assessment: This is a 66yF now Post-Bleed Day 2 s/p spontaneous Subarachnoid Hemorrhage. Angio negative x 1. Course is complicated by malignant cerebral edema. Nimodipine and vasospasm watch. avoid hypovolemia. frequent neuro checks. remains very critically ill. Plan by systems: Neurologic: Spontaneous subarachnoid bleed Intracranial hypertension Status post external ventricular drain Malignant cerebral edema Every hour neuro checks Avoid hypovolemia Nimodipine Four-vessel angiogram 05/29 negative for aneurysm of vasospasm Minimize sedation, frequent sedation vacations as long as ICPs are controlled Elevated Head of bed --continue 3% Na, goal Na 145-150 --check serum osms. Respiratory: Hypoxic hypercarbic respiratory failure Vent bundle Head of bed elevated Wean FiO2 for goal SPO2 greater than 92% Nebs every 6 and every 2 when necessary Does not meet SBT criteria with significant cerebral edema. Cardiovascular: Hypertensive emergency Continue arterial line Continue Cardene for goal BP less than 140, Norepinephrine as needed to maintain CPP. Nimodipine Renal: Parker for strict I's and O's -- Strict I/Os Avoid hypovolemia FEN/GI: Maintenance fluids normal saline. Avoid hypovolemia NPO while rapidly changing hemodynamics. when she stabilizes from a hemodynamic standpoint, will consider tube feedings. ICU electrolyte protocol Daily BMP Heme/ID: Coagulopathy secondary to anticoagulation use Daily CBC Status post K Centra Does not meet transfusion triggers at this time Endocrine: Hyperglycemia of critical illness -- SSI, every 6 hours, medium scale Prophylaxis: GI Prophylaxis Protonix 40 mg IV every 12 hours DVT Prophylaxis -- SCDs Holding pharmacologic DVT prophylaxis given intracranial hemorrhage Lines: 05/27 right IJ triple lumen catheter 05/27 radial arterial line Parker EVD Dispo: Remain in the ICU. She remains very critically ill. This patient remains critically ill with one or more organ systems which are or may become a threat to life. I have spent in excess of 78 minutes discontinuously in the care and management of this patient. This time is exclusive of procedures, and includes, but is not limited to, evaluation of the patient, review of the medical record, discussions with family, consultants, nursing staff, or respiratory therapy, and documentation in the medical record. Andrew Sykes MD May 29, 2016 07:36
[2016-05-29] MEDS: DOCUSATE SODIUM 100 MG/10 ML UDC G-TUBE SCH ×2 (08:45→20:36)
[2016-05-29] MEDS: ARTIFICIAL TEARS OPTH SOLN 15 ML BTL EACH EYE SCH ×3 (09:00→17:48)
[2016-05-29] MEDS: levETIRAcetam 1000 MG INJ 100 ML IV SCH ×2 (09:00→20:38)
[2016-05-29] MEDS: FAMOTIDINE 20 MG/2 ML VIAL IV PUSH SCH ×2 (09:00→20:38)
[2016-05-29] MEDS: niCARdipine INJ 25 MG in SODIUM CHLOR 0.9% 250 ML INJ 250 ML IV SCH ×2 (09:00→14:00)
[2016-05-29] MEDS: SODIUM CHLORIDE 0.9% FLUSH 5 ML FLUSH IV FLUSH SCH ×2 (09:00→20:38)
[2016-05-29] MEDS: INSULIN NovoLIN REGULAR SUPPLEMENTAL SCALE SQ SCH ×2 (12:00→17:48)
[2016-05-29] MEDS: SODIUM CHLOR 0.9% 1000 ML INJ 1,000 ML IV SCH ×2 (12:29→20:40)
[2016-05-29] MEDS: 3% SALINE INJ 500 ML IV SCH ×2 (13:08→23:27)
--- NOTE | 2016-05-29 14:16 | RADRPT ---
EXAM DATE/TIME: 05/29/2016 08:09 [facility] COMPARISON: US TRANSCRANIAL DOPPLER COMPLETE, May 28, 2016, 7:58. INDICATIONS : Subarachnoid hemorrhage. MEDICAL HISTORY : Hypercholesterolemia. Cardiovascular disease Hypertension. Anticoagulant therapy. A-Fib. Hydrocephalu s. Respiratory failure. SURGICAL HISTORY : Right frontal [place] with ventriculostomy catheter -Subarachnoid hemorrhage. Endotrach intubation. ENCOUNTER: Subsequent ACUITY: 2 days PAIN SCORE: Nonresponsive. LOCATION: Bilateral cranial and neck. Current Ultrasound: May 29 2016. [place] Ratio: 1.2 0.8 [place] Ratio: 1.0 0.5 Previous Ultrasound: May 28 2016. [place] Ratio: 0.7 0.8 [place] Ratio: 0.7 0.5 FINDINGS: Examination performed at bedside. Real-time ultrasound with the assistance of color and spectral Dop pler was utilized to evaluate the intracerebral circulation. Time-averaged maximal velocities are ca lculated in cm/s. Ratios are within normal limits in both the anterior and posterior circulation. CONCLUSION: 1. No evidence of vasospasm Brandon Herrera MD on May 29, 2016 at 14:09 Board Certified Radiologist. This report was verified electronically.
[2016-05-29] MEDS ORDERED: FOSPHENYTOIN INJ 1,000 MGPE in SODIUM CHLORIDE 0.9% INJ 50 ML IV ONE (15:00)
--- NOTE | 2016-05-29 16:22 | HHI.NSPN ---
Note Status Status: Progress Note Interval History Interval History This is a 66 years old female was transferred to [facility] from [facility] for a subarachnoid hemorrhage. The patient and the was vacationing from [place]. They were on the train. Patient's states that around 2:00 this afternoon she suddenly developed severe headache and then vomited, and then had a syncopal episode. The train stopped. EMS was called. EMS personnel state that patient had altered status was able to follow commands and beginning without focal neurological deficit. No seizure activity. No tongue bitting. No tonic clonic movements. no incontinence of stool or urine. She was transported to [facility] in [place]. On the way to the hospital, she developed respiratory problem and patient was subsequently endotracheally intubated. She has history of atrial fibrillation and hypertension and was anticoagulated with Xarelto 20 mg daily. In addition she takes atorvastatin, HCTZ/ losartan, metoprolol. CT scan of the brain done at [facility] in [place] shows extensive subarachnoid and intraventricular hemorrhage with early obstructive hydrocephalus developing. She was placed given propofol and Cardene drip. Cardene drip and propofol was stopped secondary to hypotension on the way to the ED. Neurosurgical consultation was requested 05/28: intubated and sedated, s/p placement of ventriculostomy drain. CTA Brain neg for aneurysm, for cerebral angiography today, 05/29: seen this am during am round, withdrawing in the lower extremities, did not open eyes or follow commands for me, was reported to have followed with nursing. Cerebral angiography yesterday was neg for aneurysm. Then sergei Mario , patient having seizures, and posturing. ICPs has been 8-10, nursing reports EVD draining, CSF blood tinged. Transcranial doppler early this am negative for vasospasm Labs, Micro, & Vital Signs Results Date Time Temp Pulse Resp B/P Pulse Ox O2 Delivery O2 Flow Rate FiO2 05/29/16 12:00 112 05/29/16 12:00 96.6 112 25 135/51 97 05/29/16 11:41 99 40 05/29/16 08:17 98 40 05/29/16 08:00 40 05/29/16 08:00 89 05/29/16 08:00 97.5 89 21 145/41 98 Automatic Cuff 05/29/16 06:00 86 05/29/16 04:06 100 40 05/29/16 04:00 40 05/29/16 04:00 97.0 80 18 142/46 99 05/29/16 04:00 80 05/29/16 02:00 91 05/29/16 01:40 99 40 05/29/16 01:13 100 100 05/29/16 00:00 40 05/29/16 00:00 96 05/29/16 00:00 97.2 91 18 164/67 100 05/28/16 23:35 100 100 05/28/16 22:00 84 05/28/16 21:56 100 40 05/28/16 20:00 97.9 80 17 150/58 100 05/28/16 20:00 40 05/28/16 20:00 80 05/28/16 19:45 100 40 05/28/16 19:00 100 Mechanical Ventilator 40 05/28/16 18:00 81 05/29/16 07:00 Intake Total 4007 ml Output Total 1825 ml Balance 2182 ml Constitutional Vital Signs Date Time Temp Pulse Resp B/P Pulse Ox O2 Delivery O2 Flow Rate FiO2 05/29/16 12:00 112 05/29/16 12:00 96.6 112 25 135/51 97 05/29/16 11:41 99 40 05/29/16 08:17 98 40 05/29/16 08:00 40 05/29/16 08:00 89 05/29/16 08:00 97.5 89 21 145/41 98 Automatic Cuff 05/29/16 06:00 86 05/29/16 04:06 100 40 05/29/16 04:00 40 05/29/16 04:00 97.0 80 18 142/46 99 05/29/16 04:00 80 05/29/16 02:00 91 05/29/16 01:40 99 40 05/29/16 01:13 100 100 05/29/16 00:00 40 05/29/16 00:00 96 05/29/16 00:00 97.2 91 18 164/67 100 05/28/16 23:35 100 100 05/28/16 22:00 84 05/28/16 21:56 100 40 05/28/16 20:00 97.9 80 17 150/58 100 05/28/16 20:00 40 05/28/16 20:00 80 05/28/16 19:45 100 40 05/28/16 19:00 100 Mechanical Ventilator 40 05/28/16 18:00 81 05/29/16 07:00 Intake Total 4007 ml Output Total 1825 ml Balance 2182 ml Review of Systems/Exam Exam Ms. Michaels is intubated and sedated. She does not open eyes, does not follow commands. Right ventriculostomy drain, CSF blood tinged, ICPs = 6 Cranial Nerves: Pupils 4 mm b/l reactive, conjugate gaze Sensorimotor: mildly withdraws to lower extremities to nailbed pressure Reflexes: There is a bilateral plantar flexion response. Cerebellar: Examination cannot be adequately assessed due to the patient's neurological condition. Medications Current Medications Current Medications Medications (Trade) Dose Ordered Sig/Jerry Route PRN Reason Start Time Stop Time Status Last Admin Dose Admin Propofol 100 ml @ 0 mls/hr TITRATE IV 05/27/16 19:45 05/28/16 23:16 Sodium Chloride (NS 1000 ml Inj) 1,000 ml @ 84 mls/hr [id number] IV 05/27/16 21:00 05/29/16 12:29 IV Flush (NS Flush) 2 ml UNSCH PRN IV FLUSH FLUSH AFTER USING IV ACCESS 05/27/16 20:45 05/27/16 22:30 IV Flush (NS Flush) 2 ml BID IV FLUSH 05/27/16 21:00 05/29/16 09:00 Acetaminophen (Tylenol) 650 mg Q6H PRN PO PAIN 1-10 AND/OR FEVER >101F 05/27/16 20:45 Famotidine (Pepcid Inj) 20 mg Q12HR IV PUSH 05/27/16 21:00 05/29/16 09:00 Artificial Tears (Tears Naturale Opth Soln) 1 drop TID EACH EYE 05/28/16 09:00 05/29/16 13:00 Ondansetron HCl (Zofran Inj) 4 mg Q6H PRN IV NAUSEA OR VOMITING 05/27/16 20:45 Docusate Sodium (Colace Liq) 100 mg Q12H G-TUBE 05/27/16 20:45 05/29/16 08:45 Miscellaneous Information 1 Q361D XX 05/27/16 20:45 05/27/16 20:45 Chlorhexidine Gluconate (Chlorhexidine 2% Cloth) 3 pack Taper DAILY@04 TOP 05/28/16 04:00 05/24/17 03:59 05/29/16 04:00 Chlorhexidine Gluconate 3 pack 3 pack UNSCH PRN TOP HYGIENIC CARE 05/27/16 20:45 Nicardipine HCl/ Sodium Chloride (Cardene Inj/NS 250 ml Inj) 260 ml @ 0 mls/hr TITRATE IV 05/27/16 21:00 05/29/16 14:00 Nimodipine (Nimotop) 60 mg Q4HR PO 05/28/16 00:00 05/29/16 12:00 Pravastatin Sodium 40 mg 40 mg HS PO 05/27/16 21:00 05/27/16 22:27 Sodium Chloride 500 ml @ 20 mls/hr UNSCH IV 05/27/16 21:30 06/01/16 21:29 05/29/16 13:08 Levetriacetam (Keppra 1000 Mg Inj) 100 ml @ 400 mls/hr Q12HR IV 05/28/16 09:00 05/29/16 09:00 Terbutaline Sulfate 1 mg 1 mg UNSCH PRN SQ For Extravasation 05/27/16 22:45 Potassium Chloride 100 ml @ 50 mls/hr Q2H PRN IV For Potassium 2.8 - 3.2 mEq/L 05/28/16 01:45 05/28/16 15:56 Potassium Chloride (KCl 20 Meq Premix Inj) 100 ml @ 50 mls/hr Q2H PRN IV For Potassium 2.8 - 3.2 mEq/L 05/28/16 01:45 Potassium Chloride 40 meq 40 meq UNSCH PRN PO/TUBE For Potassium 3.3 - 3.5 mEq/L 05/28/16 01:45 Potassium Chloride 100 ml @ 25 mls/hr UNSCH PRN IV For Potassium 3.3 - 3.5 mEq/L 05/28/16 01:45 05/29/16 05:51 Potassium Chloride 100 ml @ 50 mls/hr Q2H PRN IV For Potassium 3.3 - 3.5 mEq/L 05/28/16 01:45 Magnesium Sulfate/ Sodium Chloride (Magnesium Sulfate Inj/NS Inj) 100 ml @ 50 mls/hr UNSCH PRN IV For Magnesium 0.9 - 1.1 mg/dL 05/28/16 01:45 Magnesium Oxide 800 mg 800 mg UNSCH PRN PO For Magnesium 1.2 - 1.6 mg/dL 05/28/16 01:45 Magnesium Sulfate/ Sodium Chloride (Magnesium Sulfate Inj/NS Inj) 100 ml @ 50 mls/hr UNSCH PRN IV For Magnesium 1.2 - 1.6 mg/dL 05/28/16 01:45 Potassium Phosphate 2000 mg 2,000 mg Q4H PRN PO For Phosphorus < 2.5 mg/dL 05/28/16 01:45 Sodium Phosphate/ Sodium Chloride (Sodium Phosphate Inj/NS 250 ml Inj) 250 ml @ 42 mls/hr UNSCH PRN IV For Phosphorus < 2.5 mg/dL 05/28/16 01:45 05/28/16 06:34 Potassium Chloride (KCl 40 Meq/30 ml Liq) 40 meq UNSCH PRN PO/TUBE SEE LABEL COMMENTS 05/28/16 01:45 Potassium Phosphate 2000 mg 2,000 mg UNSCH PRN PO/TUBE SEE LABEL COMMENTS 05/28/16 01:45 Potassium Phosphate 30 mmol/ Sodium Chloride 260 ml @ 42 mls/hr UNSCH PRN IV SEE LABEL COMMENTS 05/28/16 01:45 Norepinephrine Bitartrate (Levophed-Dextrose Drip) 250 ml @ 0 mls/hr TITRATE IV 05/28/16 02:15 Dextrose (D50w (Vial) Inj) 25 ml UNSCH PRN IV PUSH HYPOGLYCEMIA-SEE COMMENTS 05/29/16 07:30 Insulin Human Regular (NovoLIN R SUPPLEMENTAL SCALE) 1 Q6HR SQ 05/29/16 12:00 05/29/16 12:00 Fosphenytoin Sodium (Cerebyx Inj) 200 mgpe Q12HR IV 05/29/16 21:00 Medical Decision Making MDM Remarks 66 y/o female with subarachnoid hemorrhage suspected intracranial aneurysm, placement of ventriculostomy drain CTA Head negative for aneurysm, Cerebral angiography neg for aneurysm Plan Plan Remarks cont antiepileptics, cont EVD draining and close monitoring of ICPs, cont nimodipine dw Dr. Mtz recommends f/u CT Brain in the am Allison Mccullough May 29, 2016 16:22 Allison Mccullough May 29, 2016 16:22
--- NOTE | 2016-05-29 16:31 | MG ---
cc: YONATHAN CAMPOVEDRE M.D. Lab No: Date: 05/29/2016 Age: Sex: F Race: EEG NUMBER [id number] TECHNIQUE 17 channel EEG. DESCRIPTION The background rhythm is generally slow in the delta frequency roughly 3-4 Hz. Amplitude is 20-40 microvolts. There are no lateralizing features. There are no epileptiform discharges. Rare muscle artifact identified. Photic stimulation does not elicit a driving response. INTERPRETATION Abnormal study consistent with a severe encephalopathy. MD HONG Ruelas/KK /2:49 PM /4:25 PM
[2016-05-29] MEDS: NOREPINEPHRINE 4 MG/D5W 250 ML IV SCH ×2 (16:55→19:02)
--- NOTE | 2016-05-29 17:40 | RADRPT ---
EXAM DATE/TIME: 05/28/2016 23:54 [facility] COMPARISON: No previous studies available for comparison. INDICATIONS : Patient is in need of a cerebral angiogram due to post subarachnoid hemorrhage vasospasm. MEDICAL HISTORY : History of hydrocephalus, AFIB, htypercholesteremia, HTN. SURGICAL HISTORY : N/A ENCOUNTER: Initial ACUITY: 1 day PAIN SCORE: 0/10 LOCATION: Patient is vented. FLUORO TIME: 13.6 minutes ACCESS SITE: Right Femoral artery CONTRAST: 121 cc Visipaque (iodixanol) PROCEDURE : 1. Ultrasound-guided puncture of the access site. 2. Conscious sedation with continuous EKG and Oximetry monitoring. 3. Angiography of the right vertebral artery 4. Angiography of the right internal carotid artery 5. Angiography of the left internal carotid artery 6. Angiography of the left subclavian artery The risks, benefits and alternatives to the procedure were explained and verbal and written consent w as obtained. The site was prepped in sterile fashion. Full sterile technique was used, including ca p, mask, sterile gloves and gown and a large sterile sheet. Hand hygiene and 2% chlorhexidine and/or betadine/alcohol prep was utilized per protocol for cutaneous antisepsis. The skin and subcutaneous tissues were infiltrated with local anesthetic solution. With ultrasound and fluoroscopic guidance the selected artery was punctured and a vascular sheath was placed A JB2 catheter was placed in the right vertebral artery where AP lateral and both oblique runs were o btained. The catheter was next placed in the right internal carotid artery where AP and lateral right rib cage as well as rotating digital subtraction angiography. The catheter was next placed into the left internal carotid artery were again AP lateral and rotating digital angiography was performed. Fi usman the catheter was placed in the left subclavian artery to attempt to gain access to the left natividad tebral artery. This cannot be identified arising from the expected position and likely reflect a norm al as origin from the arch. The arch was probed but access to the vessel could not be obtained. 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 No stenosis is identified. No aneurysm is seen. No intracranial stenosis is evident. The left PICA artery was not evaluated as l eft vertebral access could not be obtained. The puncture site was closed with manual pressure and hemostasis was obtained. The patient tolerated the procedure well and there were no complications. Conscious sedation was performed with the prescribed dosages and duration as above in the presence of an independent trained radiology nurse to assist in the monitoring of the patient. EKG and oximetry remained stable throughout the procedure. CONCLUSION: 1. No evidence of aneurysm. 2. 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 3. The left vertebral artery could not be catheterized Brandon Herrera MD on May 29, 2016 at 17:36 Board Certified Radiologist. This report was verified electronically.
[2016-05-29] MEDS ORDERED: NOREPINEPHRINE 4 MG/4 ML AMP ONE (18:34)
[2016-05-29] MEDS ORDERED: SODIUM CHLORID 0.9% 500 ML INJ 500 ML IV ONE (18:45)
[2016-05-29] MEDS: PRAVASTATIN SOD 40 MG TAB PO SCH (20:42)
[2016-05-29] MEDS: FOSPHENYTOIN SODIUM 100 MG PE/2 ML VIAL IV SCH (20:46)
[2016-05-29] MEDS: VASOPRESSIN INJ 40 UNITS in SODIUM CHLORIDE 0.9% INJ 100 ML IV SCH (21:00)
[2016-05-29] MEDS ORDERED: VASOPRESSIN 40 U/D5W 100 ML Shock/septic shock, do NOT titrate until taper off IV SCH ×2 (21:00)
[2016-05-30] VITALS (16 sets, daily range): BP systolic 99–140; BP diastolic 46–56; PULSE 94–106; RESP 17–27; TEMP 99–100; O2SAT 97–100
[2016-05-30] MEDS: niMODipine 30 MG CAP PO SCH ×7 (00:03→23:43)
[2016-05-30] MEDS: INSULIN NovoLIN REGULAR SUPPLEMENTAL SCALE SQ SCH ×5 (00:26→23:44)
[2016-05-30] MEDS: CHLORHEXIDINE GLUCONATE 2 % 1 PACK (2 CLOTHS) TOP SCH (04:00)
[2016-05-30 06:11] LABS: BICARBONATE 19.3 MEQ/L (21.0-32.0)
[2016-05-30] MEDS: POTASSIUM CHLOR 40 MEQ PREMIX 100 ML IV PRN ×3 (06:25→18:33)
[2016-05-30] MEDS: NOREPINEPHRINE INJ 4 MG in SODIUM CHLOR 0.9% 250 ML INJ 246 ML IV SCH ×2 (07:10→07:11)
[2016-05-30] MEDS: DOCUSATE SODIUM 100 MG/10 ML UDC G-TUBE SCH ×2 (08:00→19:59)
[2016-05-30] MEDS: FOSPHENYTOIN SODIUM 100 MG PE/2 ML VIAL IV SCH ×2 (08:01→20:02)
[2016-05-30] MEDS: VASOPRESSIN INJ 40 UNITS in SODIUM CHLORIDE 0.9% INJ 100 ML IV SCH ×2 (08:02→17:49)
[2016-05-30] MEDS: levETIRAcetam 1000 MG INJ 100 ML IV SCH ×2 (08:02→20:02)
[2016-05-30] MEDS: SODIUM CHLOR 0.9% 1000 ML INJ 1,000 ML IV SCH ×2 (08:35→20:02)
[2016-05-30] MEDS: ARTIFICIAL TEARS OPTH SOLN 15 ML BTL EACH EYE SCH ×3 (09:00→17:50)
[2016-05-30] MEDS: SODIUM CHLORIDE 0.9% FLUSH 5 ML FLUSH IV FLUSH SCH ×2 (09:00→20:02)
[2016-05-30] MEDS: HYDROCORTISONE SOD SUCCINATE 100 MG VIAL IV PUSH SCH ×3 (09:39→20:01)
[2016-05-30] MEDS ORDERED: NOREPINEPHRINE IV SCH (09:45)
[2016-05-30] MEDS ORDERED: PHENYLEPHRINE INJ 160 MG in DEXTROSE 5% IN WATE 500 ML INJ 484 ML IV SCH ×2 (09:45)
[2016-05-30] MEDS ORDERED: SODIUM CHLOR 0.9% IV SCH (09:45)
--- NOTE | 2016-05-30 09:56 | EKG ---
Date Performed: 05/30/2016 Time Performed: 03:33:12 PTAGE: 66 years EKG: Sinus rhythm with frequent PVCs. Extensive ST-T changes are nonspecific Abnormal ECG NO PREVIOUS TRACING DOCTOR: David Myers Interpretating Date/Time 05/30/2016 09:56:06
[2016-05-30] MEDS ORDERED: PHENYLEPHRINE INJ 160 MG in SODIUM CHLORID 0.9% 500 ML INJ 484 ML IV SCH (10:00)
[2016-05-30] MEDS: FAMOTIDINE 20 MG/2 ML VIAL IV PUSH SCH ×2 (11:30→20:01)
--- NOTE | 2016-05-30 12:02 | RADRPT ---
EXAM DATE/TIME: 05/30/2016 09:28 [facility] COMPARISON: US TRANSCRANIAL DOPPLER COMPLETE, May 29, 2016, 8:09. INDICATIONS : Subarachnoid hemorrhage. MEDICAL HISTORY : Hypercholesterolemia. Hypertension. Cardiovascular disease Anticoagulant therapy. A-Fib. Hydrocephalu s. Respiratory failure. SURGICAL HISTORY : Right frontal [place] hole with ventriculostomy catheter - Subarachnoid hemorrhage. Endotrach intubation . ENCOUNTER: Subsequent ACUITY: 3 days PAIN SCORE: Nonresponsive. LOCATION: Bilateral cranial Current Ultrasound: May 30 2016. [place] Ratio: 1.4 0.7 [place] Ratio: 1.0 0.4 Previous Ultrasound: May 29 2016. [place] Ratio: 1.2 0.8 [place] Ratio: 1.0 0.5 FINDINGS: Examination performed at bedside. Real-time ultrasound with the assistance of color and spectral Dop pler was utilized to evaluate the intracerebral circulation. Time-averaged maximal velocities are ca lculated in cm/s. CONCLUSION: No evidence for vasospasm.. Dillon Zaragoza MD FACR on May 30, 2016 at 11:58 Board Certified Radiologist. This report was verified electronically.
--- NOTE | 2016-05-30 12:29 | HHI.NSPN ---
Note Status Status: Progress Note Interval History Interval History This is a 66 years old female was transferred to [facility] from [facility] for a subarachnoid hemorrhage. The patient and the was vacationing from [place]. They were on the train. Patient's states that around 2:00 this afternoon she suddenly developed severe headache and then vomited, and then had a syncopal episode. The train stopped. EMS was called. EMS personnel state that patient had altered status was able to follow commands and beginning without focal neurological deficit. No seizure activity. No tongue bitting. No tonic clonic movements. no incontinence of stool or urine. She was transported to [facility] in [place]. On the way to the hospital, she developed respiratory problem and patient was subsequently endotracheally intubated. She has history of atrial fibrillation and hypertension and was anticoagulated with Xarelto 20 mg daily. In addition she takes atorvastatin, HCTZ/ losartan, metoprolol. CT scan of the brain done at [facility] in [place] shows extensive subarachnoid and intraventricular hemorrhage with early obstructive hydrocephalus developing. She was placed given propofol and Cardene drip. Cardene drip and propofol was stopped secondary to hypotension on the way to the ED. Neurosurgical consultation was requested 05/28: intubated and sedated, s/p placement of ventriculostomy drain. CTA Brain neg for aneurysm, for cerebral angiography today, 05/29: seen this am during am round, withdrawing in the lower extremities, did not open eyes or follow commands for me, was reported to have followed with nursing. Cerebral angiography yesterday was neg for aneurysm. Then sergei Mario , patient having seizures, and posturing. ICPs has been 8-10, nursing reports EVD draining, CSF blood tinged. Transcranial doppler early this am negative for vasospasm 05/30: extends in uppers, withdraws in LEs Labs, Micro, & Vital Signs Results Date Time Temp Pulse Resp B/P Pulse Ox O2 Delivery O2 Flow Rate FiO2 05/30/16 11:09 97 40 05/30/16 10:00 102 05/30/16 08:00 50 05/30/16 08:00 94 05/30/16 08:00 99.0 94 24 112/46 100 05/30/16 07:54 100 40 05/30/16 04:09 99 50 05/30/16 04:00 99.5 102 17 120/56 99 05/30/16 04:00 50 05/30/16 00:05 99 50 05/30/16 00:00 50 05/30/16 00:00 100.0 106 23 140/50 99 05/29/16 23:00 111 05/29/16 20:58 98 50 05/29/16 20:00 98.8 112 20 138/50 96 05/29/16 20:00 50 05/29/16 17:40 50 05/29/16 16:51 95 40 05/29/16 16:00 98.8 114 22 128/48 96 05/29/16 16:00 114 05/30/16 07:00 Intake Total 5553 ml Output Total 1949 ml Balance 3604 ml Constitutional Vital Signs Date Time Temp Pulse Resp B/P Pulse Ox O2 Delivery O2 Flow Rate FiO2 05/30/16 11:09 97 40 05/30/16 10:00 102 05/30/16 08:00 50 05/30/16 08:00 94 05/30/16 08:00 99.0 94 24 112/46 100 05/30/16 07:54 100 40 05/30/16 04:09 99 50 05/30/16 04:00 99.5 102 17 120/56 99 05/30/16 04:00 50 05/30/16 00:05 99 50 05/30/16 00:00 50 05/30/16 00:00 100.0 106 23 140/50 99 05/29/16 23:00 111 05/29/16 20:58 98 50 05/29/16 20:00 98.8 112 20 138/50 96 05/29/16 20:00 50 05/29/16 17:40 50 05/29/16 16:51 95 40 05/29/16 16:00 98.8 114 22 128/48 96 05/29/16 16:00 114 05/30/16 07:00 Intake Total 5553 ml Output Total 1949 ml Balance 3604 ml Review of Systems/Exam Exam Ms. Michaels is intubated. No eye opening. Right ventriculostomy drain, minimal drainage seen, CSF in reservoir is blood tinged, ICPs = 6 Cranial Nerves: Pupils 4 mm b/l reactive, conjugate gaze Sensorimotor: she is extending in her upper extremities to nailbed pressure and mildly withdraws to lower extremities to nailbed pressure Reflexes: There is a bilateral plantar flexion response. Cerebellar: Examination cannot be adequately assessed due to the patient's neurological condition. Medications Current Medications Current Medications Medications (Trade) Dose Ordered Sig/Jerry Route PRN Reason Start Time Stop Time Status Last Admin Dose Admin Propofol 100 ml @ 0 mls/hr TITRATE IV 05/27/16 19:45 05/28/16 23:16 Sodium Chloride (NS 1000 ml Inj) 1,000 ml @ 84 mls/hr [id number] IV 05/27/16 21:00 05/29/16 20:40 IV Flush (NS Flush) 2 ml UNSCH PRN IV FLUSH FLUSH AFTER USING IV ACCESS 05/27/16 20:45 05/27/16 22:30 IV Flush (NS Flush) 2 ml BID IV FLUSH 05/27/16 21:00 05/29/16 20:38 Acetaminophen (Tylenol) 650 mg Q6H PRN PO PAIN 1-10 AND/OR FEVER >101F 05/27/16 20:45 Famotidine (Pepcid Inj) 20 mg Q12HR IV PUSH 05/27/16 21:00 05/30/16 11:30 Artificial Tears (Tears Naturale Opth Soln) 1 drop TID EACH EYE 05/28/16 09:00 05/30/16 09:00 Ondansetron HCl (Zofran Inj) 4 mg Q6H PRN IV NAUSEA OR VOMITING 05/27/16 20:45 Docusate Sodium (Colace Liq) 100 mg Q12H G-TUBE 05/27/16 20:45 05/30/16 08:00 Miscellaneous Information 1 [id number] XX 05/27/16 20:45 05/27/16 20:45 Chlorhexidine Gluconate (Chlorhexidine 2% Cloth) 3 pack Taper DAILY@04 TOP 05/28/16 04:00 05/24/17 03:59 05/30/16 04:00 Chlorhexidine Gluconate 3 pack 3 pack UNSCH PRN TOP HYGIENIC CARE 05/27/16 20:45 Nicardipine HCl/ Sodium Chloride (Cardene Inj/NS 250 ml Inj) 260 ml @ 0 mls/hr TITRATE IV 05/27/16 21:00 05/29/16 14:00 Nimodipine (Nimotop) 60 mg Q4HR PO 05/28/16 00:00 05/30/16 11:45 Pravastatin Sodium 40 mg 40 mg HS PO 05/27/16 21:00 05/29/16 20:42 Sodium Chloride 500 ml @ 20 mls/hr UNSCH IV 05/27/16 21:30 06/01/16 21:29 05/29/16 23:27 Levetriacetam (Keppra 1000 Mg Inj) 100 ml @ 400 mls/hr Q12HR IV 05/28/16 09:00 05/30/16 08:02 Terbutaline Sulfate 1 mg 1 mg UNSCH PRN SQ For Extravasation 05/27/16 22:45 Potassium Chloride 100 ml @ 50 mls/hr Q2H PRN IV For Potassium 2.8 - 3.2 mEq/L 05/28/16 01:45 05/30/16 08:01 Potassium Chloride (KCl 20 Meq Premix Inj) 100 ml @ 50 mls/hr Q2H PRN IV For Potassium 2.8 - 3.2 mEq/L 05/28/16 01:45 Potassium Chloride 40 meq 40 meq UNSCH PRN PO/TUBE For Potassium 3.3 - 3.5 mEq/L 05/28/16 01:45 Potassium Chloride 100 ml @ 25 mls/hr UNSCH PRN IV For Potassium 3.3 - 3.5 mEq/L 05/28/16 01:45 05/29/16 05:51 Potassium Chloride 100 ml @ 50 mls/hr Q2H PRN IV For Potassium 3.3 - 3.5 mEq/L 05/28/16 01:45 Magnesium Sulfate/ Sodium Chloride (Magnesium Sulfate Inj/NS Inj) 100 ml @ 50 mls/hr UNSCH PRN IV For Magnesium 0.9 - 1.1 mg/dL 05/28/16 01:45 Magnesium Oxide 800 mg 800 mg UNSCH PRN PO For Magnesium 1.2 - 1.6 mg/dL 05/28/16 01:45 Magnesium Sulfate/ Sodium Chloride (Magnesium Sulfate Inj/NS Inj) 100 ml @ 50 mls/hr UNSCH PRN IV For Magnesium 1.2 - 1.6 mg/dL 05/28/16 01:45 Potassium Phosphate 2000 mg 2,000 mg Q4H PRN PO For Phosphorus < 2.5 mg/dL 05/28/16 01:45 Sodium Phosphate/ Sodium Chloride (Sodium Phosphate Inj/NS 250 ml Inj) 250 ml @ 42 mls/hr UNSCH PRN IV For Phosphorus < 2.5 mg/dL 05/28/16 01:45 05/28/16 06:34 Potassium Chloride (KCl 40 Meq/30 ml Liq) 40 meq UNSCH PRN PO/TUBE SEE LABEL COMMENTS 05/28/16 01:45 Potassium Phosphate 2000 mg 2,000 mg UNSCH PRN PO/TUBE SEE LABEL COMMENTS 05/28/16 01:45 Potassium Phosphate/Sodium Chloride (Potassium Phosphate Inj/NS 250 ml Inj) 260 ml @ 42 mls/hr UNSCH PRN IV SEE LABEL COMMENTS 05/28/16 01:45 Dextrose (D50w (Vial) Inj) 25 ml UNSCH PRN IV PUSH HYPOGLYCEMIA-SEE COMMENTS 05/29/16 07:30 Insulin Human Regular (NovoLIN R SUPPLEMENTAL SCALE) 1 Q6HR SQ 05/29/16 12:00 05/30/16 06:00 Fosphenytoin Sodium 200 mgpe 200 mgpe Q12HR IV 05/29/16 21:00 05/30/16 08:01 Vasopressin/ Sodium Chloride (Pitressin Inj/ NS Inj) 102 ml @ 6.12 mls/hr [id number] IV 05/29/16 21:00 05/30/16 08:02 Hydrocortisone Sodium Succinate 50 mg 50 mg Q6H IV PUSH 05/30/16 09:00 05/30/16 09:39 Norepinephrine Bitartrate 16 mg/ Sodium Chloride 262 ml @ 0 mls/hr TITRATE IV 05/30/16 09:45 Phenylephrine HCl/ Dextrose (Neosynephrine Inj/D5W 500 ml Inj) 500 ml @ 0 mls/hr TITRATE IV 05/30/16 10:00 Medical Decision Making MDM Remarks 66 y/o female with subarachnoid hemorrhage suspected intracranial aneurysm, placement of ventriculostomy drain CTA Head negative for aneurysm, Cerebral angiography neg for aneurysm Plan Plan Remarks decrease ventriculostomy to 5 cm H20 cont antiepileptics, cont EVD draining and close monitoring of ICPs, cont nimodipine repeat EEG today to ensure seizure controlled dw Allison Michele May 30, 2016 12:29
--- NOTE | 2016-05-30 13:13 | HHI.CCPN ---
Subjective Remarks/Hospital Course Hospital Course: 66 years old female was transferred to [facility] from [facility] in [place]. Patient and her was vacationing from [place]. They aware on the train while at around 2:00 patient started having severe headache and then vomited and then had a syncopal episode. Patient was transported to [facility] in [place]. On the way to the hospital, patient started having respiratory problem and patient was subsequently intubated. Patient has history of atrial fibrillation and hypertension and on Xarelto 20 mg daily, atorvastatin, HCTZ/ losartan, metoprolol. CT scan of the brain done at [facility] in [place] shows diffuse subarachnoid hemorrhage with intraventricular extension and early obstructive hydrocephalus developing. Dr. Mtz, neurosurgeon at [facility] was contacted and accepted transfer. Subjective: 05/28: slight improvements, withdrawing to deep nailbed pressure. on cardene for hypertension. plan for angio today or tomorrow. 05/29: worsening neuro exam overnight. repeat head CT with effacement, slight compression of the brainstem. angiogram overnight without evidence of aneurysm or vasospasm. more hypotensive this morning on norepinephrine. flaccid x 4, no cough or gag. propofol turned off at 0600. 05/30: EEG with evidence of seizures. Keppra increased yesterday and Cerebryx loaded. this morning, on increasing vasopressor requirements. added phenylephrine on top of maximal levophed, vasopressin. echo with prelim hyperdynamic biventricular function. ICP stable. poor neurologic function. posturing in UEs. Objective Vital Signs Date Time Temp Pulse Resp B/P Pulse Ox O2 Delivery O2 Flow Rate FiO2 05/30/16 11:09 97 40 05/30/16 10:00 102 05/30/16 08:00 99.0 24 112/46 05/28/16 19:00 Mechanical Ventilator Intake and Output 05/29/16 05/29/16 05/30/16 08:00 16:00 00:00 Intake Total 1317 ml 1539 ml 2165 ml Output Total 777 ml 544 ml 511 ml Balance 540 ml 995 ml 1654 ml Result Diagram: 05/29/16 0441 05/30/16 0855 Other Results Microbiology Date/Time Procedure Status Source Growth 05/27/16 21:30 Gram Stain - Final Complete Cerebral Spinal Fluid Shunt Fluid 05/27/16 21:30 CSF Culture - Final Complete Cerebral Spinal Fluid Shunt Fluid NO GROWTH IN 72 HOURS Imaging Last 24 hours Impressions Chest X-Ray 05/27/16 194 Signed Impressions: Service Date/Time: Friday, May 27, 2016 20:01 - CONCLUSION: No acute disease. Adequate placement of endotracheal tube. Juvencio Encarnacion MD Objective Remarks GENERAL: elderly female, critically ill patient in coma. SKIN: Warm and dry. HEAD: Normocephalic. EYES: No scleral icterus. No injection or drainage. NECK: Supple, trachea midline. No JVD or lymphadenopathy. CARDIOVASCULAR: Regular rate and rhythm without murmurs, gallops, or rubs. RESPIRATORY: Breath sounds equal bilaterally. No accessory muscle use. GASTROINTESTINAL: Abdomen soft, non-tender, nondistended. MUSCULOSKELETAL: No cyanosis, or edema. Neuro: to my exam this morning off sedation, extends in uppers, withdrawing lowers. does not open eyes. A/P Problem List: (1) Subarachnoid hemorrhage ICD Code: I60.9 Status: Acute (2) Atrial fibrillation ICD Code: I48.91 Status: Acute (3) Coagulopathy ICD Code: D68.9 Status: Acute (4) Respiratory failure ICD Code: J96.90 Status: Acute (5) Hypertension ICD Code: I10 Status: Acute Assessment and Plan Assessment: This is a 66yF now Post-Bleed Day 3 s/p spontaneous Subarachnoid Hemorrhage. Angio negative x 1. Course is complicated by malignant cerebral edema and now severe vasoplegia/distributive shock. Very hemodynamically unstable at this point with multiple vasopressors. Nimodipine and vasospasm watch. avoid hypovolemia. frequent neuro checks. remains very critically ill. Discussed care with Dr. Mtz this morning: repeat EEG to see if persistent sz activity, hold off on repeat CT scan while this unstable. will plan for CT/CTA in the AM. Also had a long discussion with the family at bedside where I explained how grave the situation and her expected hospital course. Goals remain aggressive. Plan by systems: Neurologic: Spontaneous subarachnoid bleed Intracranial hypertension Status post external ventricular drain Malignant cerebral edema Seizures Every hour neuro checks Avoid hypovolemia Nimodipine Four-vessel angiogram 05/29 negative for aneurysm of vasospasm Minimize sedation, frequent sedation vacations as long as ICPs are controlled Elevated Head of bed --continue 3% Na, goal Na 145-150 --check serum osms. --Keppra and Cerebyx --repeat EEG today to see if sz focus persists --Dr. Mtz: neurosurgery Respiratory: Hypoxic and hypercarbic respiratory failure Vent bundle Head of bed elevated Wean FiO2 for goal SPO2 greater than 92% Nebs every 6 and every 2 when necessary Does not meet SBT criteria with significant cerebral edema. Cardiovascular: Severe vasoplegia/Distributive Shock Continue arterial line. Continue norepinephrine, vasopressin, phenylephrine to keep CPP > 65 mmHg. will liberalize SBP goals to < 160 as long as CPP is maintained. If we get into significant vasospasm, we may need to liberalize BP goals more. Nimodipine Renal: Elena for strict I's and O's -- Strict I/Os Avoid hypovolemia FEN/GI: Maintenance fluids normal saline. Avoid hypovolemia NPO while rapidly changing hemodynamics. when she stabilizes from a hemodynamic standpoint, will consider tube feedings. ICU electrolyte protocol Daily BMP Heme/ID: Coagulopathy secondary to anticoagulation use Daily CBC Status post K Centra Does not meet transfusion triggers at this time Endocrine: Hyperglycemia of critical illness -- SSI, every 6 hours, medium scale Prophylaxis: GI Prophylaxis Protonix 40 mg IV every 12 hours DVT Prophylaxis -- SCDs Holding pharmacologic DVT prophylaxis given intracranial hemorrhage Lines: 05/27 right IJ triple lumen catheter 05/27 radial arterial line. this is no longer working and we will replace it as we have significant vasopressor use. Elena COOMBS Dispo: Remain in the ICU. She remains very critically ill. This patient remains critically ill with one or more organ systems which are or may become a threat to life. I have spent in excess of 95 minutes discontinuously in the care and management of this patient. This time is exclusive of procedures, and includes, but is not limited to, evaluation of the patient, review of the medical record, discussions with family, consultants, nursing staff, or respiratory therapy, and documentation in the medical record. Adnrew Sykes MD May 30, 2016 13:13
--- NOTE | 2016-05-30 16:56 | MG ---
cc: YONATHAN CAMPOVERDE M.D. Lab No: Date: 05/30/2016 Age: Sex: F Race: EEG NUMBER [id number] TECHNIQUE 17 channel EEG. DESCRIPTION Background rhythm is slow in the delta frequency roughly 3-4 Hz. Amplitude is about 40 microvolts. No lateralizing features are identified. There are no epileptiform features seen. Occasional muscle artifact is identified. Hyperventilation was not done. Photic results in a modest driving response. INTERPRETATION Abnormal study consistent with a moderate to severe encephalopathy. MD HONG Ruelas/ADELINA /4:41 PM /4:52 PM
--- NOTE | 2016-05-30 17:48 | PD.PROCEDR ---
Procedure Note Procedure Procedure: Arterial Line Placement Left axillary arterial line Diagnosis: Grade 4 subarachnoid hemorrhage Indications: Need for beat to beat hemodynamic monitoring Consent: Written Consent was obtained Description of the Procedure: The left axilla was prepped and draped sterilely. 1% lidocaine was used for local anesthesia. The left axillary artery was identified under ultrasound guidance. The vascular anatomy of the left axilla was normal. Under direct ultrasound guidance, the left axillary artery was located and a needle was advanced into the artery. A 20 gauge, 12 cm catheter was advanced into the artery using a modified Seldinger technique. The catheter was sutured to the skin and a sterile dressing was applied. The catheter was connected to a pressure transducer and an arterial waveform was noted. There were no immediate complications noted. There was minimal EBL. I personally performed the procedure. Andrew Sykes MD May 30, 2016 17:48
[2016-05-30] MEDS: PRAVASTATIN SOD 40 MG TAB PO SCH (20:02)
--- NOTE | 2016-05-30 21:01 | EC ---
Study Study Date:05/30/2016 STUDY CONCLUSIONS SUMMARY - Left ventricle: The cavity size was normal. Wall thickness was normal. Systolic function was normal. The estimated ejection fraction was 65%. Wall motion was normal; there were no regional wall motion abnormalities. - Tricuspid valve: Mild regurgitation. - Pulmonary arteries: Systolic pressure was mildly to moderately increased, estimated to be 54mm Hg. If LV function is below 40, please consider prescribing an ACEI or ARB or document rationale for non-use. PROCEDURE DATA STUDY STATUS: Elective. Procedure: Transthoracic echocardiography. Image quality was good. Scanning was performed from the parasternal, apical, and subcostal acoustic windows. Study completion: The patient tolerated the procedure well. Transthoracic echocardiography. M-mode, complete 2D, complete spectral Doppler, and color Doppler. Height: Height: 65in. Weight: Weight: 178.6lb. Body mass index: BMI: 29.8kg/m^2. Body surface area: BSA: 1.89m^2. Patient status: Inpatient. CARDIAC ANATOMY LEFT VENTRICLE: The cavity size was normal. Wall thickness was normal. Systolic function was normal. The estimated ejection fraction was 65%. Wall motion was normal; there were no regional wall motion abnormalities. AORTIC VALVE: Trileaflet; normal thickness leaflets. Doppler: Transvalvular velocity was within the normal range. There was no stenosis. No regurgitation. AORTA: Aortic root: The aortic root was normal in size. MITRAL VALVE: Structurally normal valve. Doppler: Transvalvular velocity was within the normal range. There was no evidence for stenosis. Trace regurgitation. Peak gradient: 7mm Hg (D). LEFT ATRIUM: The atrium was normal in size. RIGHT VENTRICLE: The cavity size was normal. Wall thickness was normal. PULMONIC VALVE: Doppler: Transvalvular velocity was within the normal range. There was no evidence for stenosis. No regurgitation. TRICUSPID VALVE: Structurally normal valve. Doppler: Transvalvular velocity was within the normal range. Mild regurgitation. PULMONARY ARTERY: The main pulmonary artery was normal-sized. Systolic pressure was mildly to moderately increased, estimated to be 54mm Hg. RIGHT ATRIUM: The atrium was normal in size. PERICARDIUM: There was no pericardial effusion. SYSTEMIC VEINS: Inferior vena cava: The vessel was normal in size. Patient weight: 178.6lb _Ejection fraction:_ 65-75% _Fractional shortening:_ 32% up to 5Kg 5-11.5Kg 11.6-22.9Kg 23-45Kg 45-57Kg Aortic Root 7-13 <17 13-22 17-27 17-27 LA diam 6-13 <23 24-38 33-47 37-40 RVID 10-17 7-15 7-15 7-18 8-17 LVIDd 12-22 <32 24-38 33-47 37-40 LVPW 2-4 3-6 5-7 6-8 7-8 IVS 2-4 3-6 5-7 6-8 7-8 BASIC MEASUREMENTS ADULT Normal Left ventricle LV internal dimension, ED, chordal level, *42.9 mm 43-52 PLAX LV internal dimension, ES, chordal level, 25.7 mm 23-38 PLAX Fractional shortening, chordal level, PLAX 40 % >29 LV posterior wall thickness, ED 7.95 mm IVS/LVPW ratio, ED 1 <1.3 Ventricular septum Septal thickness, ED 7.95 mm Aortic valve Leaflet separation 17 mm 15-26 Aorta Root diameter, ED 26 mm Left atrium Anterior-posterior dimension 27 mm Anterior-posterior dimension index 1.43 cm/m^2 <2.2 BASIC MEASUREMENTS ADULT Normal Aortic valve Leaflet separation 17 mm 15-26 DOPPLER MEASUREMENTS ADULT Normal Main pulmonary artery Pressure, S *44 mm Hg =30 Mitral valve Peak E-wave velocity 131 cm/s Peak A-wave velocity 85 cm/s Deceleration time 211 ms 150-230 Peak gradient, D 7 mm Hg Peak E/A ratio 1.5 Tricuspid valve Regurgitant peak velocity 331 cm/s Peak RV-RA gradient, S 44 mm Hg Maximal regurgitant velocity 331 cm/s Systemic veins Estimated CVP 10 mm Hg Right ventricle RV pressure, S *54 mm Hg <30 Pulmonic valve Peak velocity, S 157 cm/s LEGEND: Mean values are shown as u=mean value. Asterisk (*) myers values outside specified normal range. Prepared and signed by Adrian Zamora [id number]
[2016-05-31] VITALS (16 sets, daily range): BP systolic 116–146; BP diastolic 46–62; PULSE 94–107; RESP 18–21; TEMP 99.3–99.9; O2SAT 98–100
[2016-05-31] MEDS: HYDROCORTISONE SOD SUCCINATE 100 MG VIAL IV PUSH SCH ×4 (03:58→20:12)
[2016-05-31] MEDS: CHLORHEXIDINE GLUCONATE 2 % 1 PACK (2 CLOTHS) TOP SCH (03:58)
[2016-05-31] MEDS: niMODipine 30 MG CAP PO SCH ×6 (03:58→23:59)
[2016-05-31] MEDS: VASOPRESSIN INJ 40 UNITS in SODIUM CHLORIDE 0.9% INJ 100 ML IV SCH ×2 (05:43→22:33)
[2016-05-31] MEDS: INSULIN NovoLIN REGULAR SUPPLEMENTAL SCALE SQ SCH ×4 (06:00→23:57)
[2016-05-31 06:55] LABS: HEMATOCRIT 32.1 % (35.0-46.0); MEAN CELL VOLUME 92.6 FL (80.0-100.0); MEAN CORPUSCULAR HEMOGLOBIN 31.3 PG (27.0-34.0); MEAN CORPUSCULAR HGB CONC 33.8 % (32.0-36.0); PLATELET COUNT 240 TH/MM3 (150-450); RED BLOOD COUNT 3.46 MIL/MM3 (4.00-5.30); RED CELL DISTRIBUTION WIDTH 14.8 % (11.6-17.2); REVIEW FLAG FINAL; WHITE BLOOD COUNT 14.7 TH/MM3 (4.0-11.0)
[2016-05-31 07:52] LABS: BICARBONATE 18.5 MEQ/L (21.0-32.0); POTASSIUM 3.6 MEQ/L (3.5-5.1)
[2016-05-31] MEDS: DOCUSATE SODIUM 100 MG/10 ML UDC G-TUBE SCH ×2 (08:31→20:14)
[2016-05-31] MEDS: SODIUM CHLOR 0.9% 1000 ML INJ 1,000 ML IV SCH ×2 (08:31→20:14)
[2016-05-31] MEDS: FAMOTIDINE 20 MG/2 ML VIAL IV PUSH SCH ×2 (08:34→20:13)
[2016-05-31] MEDS: FOSPHENYTOIN SODIUM 100 MG PE/2 ML VIAL IV SCH ×2 (08:34→20:16)
[2016-05-31] MEDS: ARTIFICIAL TEARS OPTH SOLN 15 ML BTL EACH EYE SCH ×3 (08:35→17:59)
[2016-05-31] MEDS: levETIRAcetam 1000 MG INJ 100 ML IV SCH ×2 (08:35→20:14)
[2016-05-31] MEDS: SODIUM CHLORIDE 0.9% FLUSH 5 ML FLUSH IV FLUSH SCH ×2 (08:35→20:15)
[2016-05-31] MEDS ORDERED: EPINEPHrine HCL (1:10,000) 1 MG/10 ML SYRINGE ONE (10:08)
[2016-05-31] MEDS ORDERED: ATROPINE SULFATE 1 MG/10 ML SYRINGE ONE (10:08)
[2016-05-31] MEDS ORDERED: LIDOCAINE HCL 2% 100 MG/5 ML SYRINGE ONE (10:08)
--- NOTE | 2016-05-31 10:20 | HHI.CCPN ---
Subjective Remarks/Hospital Course Hospital Course: 66 years old female was transferred to [facility] from [facility] in [place]. Patient and her was vacationing from [place]. They aware on the train while at around 2:00 patient started having severe headache and then vomited and then had a syncopal episode. Patient was transported to [facility] in [place]. On the way to the hospital, patient started having respiratory problem and patient was subsequently intubated. Patient has history of atrial fibrillation and hypertension and on Xarelto 20 mg daily, atorvastatin, HCTZ/ losartan, metoprolol. CT scan of the brain done at [facility] in [place] shows diffuse subarachnoid hemorrhage with intraventricular extension and early obstructive hydrocephalus developing. Dr. Mtz, neurosurgeon at [address] was contacted and accepted transfer. Subjective: 05/28: slight improvements, withdrawing to deep nailbed pressure. on cardene for hypertension. plan for angio today or tomorrow. 05/29: worsening neuro exam overnight. repeat head CT with effacement, slight compression of the brainstem. angiogram overnight without evidence of aneurysm or vasospasm. more hypotensive this morning on norepinephrine. flaccid x 4, no cough or gag. propofol turned off at 0600. 05/30: EEG with evidence of seizures. Keppra increased yesterday and Cerebryx loaded. this morning, on increasing vasopressor requirements. added phenylephrine on top of maximal levophed, vasopressin. echo with prelim hyperdynamic biventricular function. ICP stable. poor neurologic function. posturing in UEs. 05/31: vasopressors weaned overnight significantly, but remains on some support. repeat EEG improved with no evidence of ongoing ictal activity. ICP stable. this morning, no longer following commands in LEs, no longer posturing in upper extremities. discussed care with Dr. Mtz, will plan to go to CT/CTA brain to r /o vasospasm. Objective Vital Signs Date Time Temp Pulse Resp B/P Pulse Ox O2 Delivery O2 Flow Rate FiO2 05/31/16 08:39 100 40 05/31/16 06:00 99 05/31/16 04:00 99.7 21 126/51 05/28/16 19:00 Mechanical Ventilator Intake and Output 05/30/16 05/30/16 05/31/16 08:00 16:00 00:00 Intake Total 1849 ml 1994 ml 1260 ml Output Total 894 ml 1133 ml 845 ml Balance 955 ml 861 ml 415 ml Result Diagram: 05/31/16 0630 05/31/16 06 Imaging Last 24 hours Impressions Chest X-Ray 05/27/16 194 Signed Impressions: Service Date/Time: Friday, May 27, 2016 20:01 - CONCLUSION: No acute disease. Adequate placement of endotracheal tube. Juvencio Encarnacion MD Objective Remarks GENERAL: elderly female, critically ill patient in coma. SKIN: Warm and dry. HEAD: Normocephalic. EYES: No scleral icterus. No injection or drainage. NECK: Supple, trachea midline. No JVD or lymphadenopathy. CARDIOVASCULAR: Regular rate and rhythm without murmurs, gallops, or rubs. on vasopressin at 0.04 u/min. no other vasopressors. RESPIRATORY: Breath sounds equal bilaterally. No accessory muscle use. GASTROINTESTINAL: Abdomen soft, non-tender, nondistended. MUSCULOSKELETAL: No cyanosis, or edema. Neuro: to my exam this morning off sedation, no movement in uppers, ?very weak withdraw in RLE. no movement in LLE. A/P Problem List: (1) Subarachnoid hemorrhage ICD Code: I60.9 Status: Acute (2) Atrial fibrillation ICD Code: I48.91 Status: Acute (3) Coagulopathy ICD Code: D68.9 Status: Acute (4) Respiratory failure ICD Code: J96.90 Status: Acute (5) Hypertension ICD Code: I10 Status: Acute Assessment and Plan Assessment: This is a 66yF now Post-Bleed Day 4 s/p spontaneous Subarachnoid Hemorrhage. Angio negative x 1. Course is complicated by elevated ICP and resolving distributive shock. Now with declining neuro exam. High concern for cerebral vasospasm. STAT CT/CTA to eval for vasospasm. continue daily TCDs. Nimodipine. avoid hypovolemia. strict q1h neuro checks. remains very critically ill. Discussed care with Dr. Mtz this morning, and he agrees with the plan. updated family at bedside. Goals remain aggressive. Plan by systems: Neurologic: Spontaneous subarachnoid bleed Intracranial hypertension Status post external ventricular drain Malignant cerebral edema Seizures Every hour neuro checks Avoid hypovolemia Nimodipine Four-vessel angiogram 05/29 negative for aneurysm of vasospasm off sedation, as long as ICPs are controlled Elevated Head of bed --continue hyperosmolar therapy, 3% on hold. recent Na 161. --Keppra and Cerebyx --repeat EEG today 05/30 negative for seizures. --Dr. Mtz: neurosurgery -- stat CT/CTA. -- daily TCDs Respiratory: Hypoxic and hypercarbic respiratory failure Vent bundle Head of bed elevated Wean FiO2 for goal SPO2 greater than 92% Nebs every 6 and every 2 when necessary Does not meet SBT criteria with significant cerebral edema. Cardiovascular: Severe vasoplegia/Distributive Shock- resolving. Continue arterial line. Continue norepinephrine, vasopressin to keep CPP > 65 mmHg. If she has significant vasopasm, will change SBP goal to 140 - 180. Nimodipine Renal: Parker for strict I's and O's -- Strict I/Os Avoid hypovolemia FEN/GI: Maintenance fluids normal saline. Avoid hypovolemia NPO while rapidly changing hemodynamics. when she stabilizes from a hemodynamic standpoint, will consider tube feedings. ICU electrolyte protocol Daily BMP Heme/ID: Coagulopathy secondary to anticoagulation use- resolved. Daily CBC Status post K Centra Does not meet transfusion triggers at this time --holding Eliquis given SAH. Endocrine: Hyperglycemia of critical illness -- SSI, every 6 hours, medium scale Prophylaxis: GI Prophylaxis Protonix 40 mg IV every 12 hours DVT Prophylaxis -- SCDs Holding pharmacologic DVT prophylaxis given intracranial hemorrhage Lines: 05/27 right IJ triple lumen catheter 05/30 left axillary arterial line. Parker EVD Dispo: Remain in the ICU. She remains very critically ill. This patient remains critically ill with one or more organ systems which are or may become a threat to life. I have spent in excess of 77 minutes discontinuously in the care and management of this patient. This time is exclusive of procedures, and includes, but is not limited to, evaluation of the patient, review of the medical record, discussions with family, consultants, nursing staff, or respiratory therapy, and documentation in the medical record. Andrew Sykes MD May 31, 2016 10:20
[2016-05-31] MEDS ORDERED: IOHEXOL 350 MG/ML 10 ML VIAL (for RAD DIAG) IV ONE (10:56)
--- NOTE | 2016-05-31 11:25 | RADRPT ---
EXAM DATE/TIME: 05/31/2016 10:44 [facility] COMPARISON: Prior study 05/29/16, use for comparison. INDICATIONS: Subarachnoid hemorrhage. RADIATION DOSE: 40.59 CTDIvol (mGy) MEDICAL HISTORY: Cardiovascular disease. Hypertension. SURGICAL HISTORY: None. ENCOUNTER: Initial ACUITY: 1 day PAIN SCALE: Non-responsive LOCATION: Cranial TECHNIQUE: Multiple contiguous axial images were obtained of the head. Using automated exposure control and adj ustment of the mA and/or kV according to patient size, radiation dose was kept as low as reasonably a chievable to obtain optimal diagnostic quality images. FINDINGS: Non-contrast head CT demonstrates patient has a right-sided ventriculostomy catheter in good position . There is extensive subarachnoid hemorrhage within the ventricular system posterior along the falx and around [facility] posterior fossa. There is extensive hemorrhage within the foramen magnum. The appearance is quite s imilar to 05/29/16. The ventricles do appear to be slightly larger today. There is fluid in the left maxillary sinus, so me fluid in left ethmoid air cells. CONCLUSION: Extensive subarachnoid hemorrhage including significant hemorrhage in the foramen magnum similar to [facility] 05/29/16 exam. The ventricles do appear to be larger today with significant intraventricular hemor rhage present. Ventriculostomy catheter in good position. David Spencer MD on May 31, 2016 at 10:52 Board Certified Radiologist. This report was verified electronically.
--- NOTE | 2016-05-31 11:44 | RADRPT ---
EXAM DATE/TIME: 05/31/2016 10:44 [facility] COMPARISON: CTA BRAIN W 3D RECON, May 27, 2016, 23:03. INDICATIONS : Evaluate for vasospasm. IV CONTRAST: 91 cc Omnipaque 350 (iohexol) IV RADIATION DOSE: 26.38 CTDIvol (mGy) MEDICAL HISTORY : Cardiovascular disease. Hypertension. SURGICAL HISTORY : None. ENCOUNTER: Initial ACUITY: 1 day PAIN SCALE: Non-responsive LOCATION: cranial TECHNIQUE: Volumetric scanning was performed using a multi-row detector CT scanner. The data was post processed with a variety of visualization algorithms including full volume maximum intensity projection, multi -planar sliding thin slab reformation, curved planar reformation, and surface rendering techniques. Using automated exposure control and adjustment of the mA and/or kV according to patient size, radiat ion dose was kept as low as reasonably achievable to obtain optimal diagnostic quality images. FINDINGS: There is no evidence of vasospasm involving the anterior or posterior circulation.No aneurysm is iden tified. Visualized venous structures are also unremarkable. There is a patent posterior communicating artery on the left. CONCLUSION: 1. No evidence of vasospasm Brandon Herrera MD on May 31, 2016 at 11:39 Board Certified Radiologist. This report was verified electronically.
--- NOTE | 2016-05-31 12:49 | HHI.NSPN ---
(Allison Mccullough) Note Status Status: Progress Note (Allison Mccullough) Interval History Interval History This is a 66 years old female was transferred to [facility] from [facility] for a subarachnoid hemorrhage. The patient and the was vacationing from [place]. They were on the train. Patient's states that around 2:00 this afternoon she suddenly developed severe headache and then vomited, and then had a syncopal episode. The train stopped. EMS was called. EMS personnel state that patient had altered status was able to follow commands and beginning without focal neurological deficit. No seizure activity. No tongue bitting. No tonic clonic movements. no incontinence of stool or urine. She was transported to [facility] in [place]. On the way to the hospital, she developed respiratory problem and patient was subsequently endotracheally intubated. She has history of atrial fibrillation and hypertension and was anticoagulated with Xarelto 20 mg daily. In addition she takes atorvastatin, HCTZ/ losartan, metoprolol. CT scan of the brain done at [facility] in [place] shows extensive subarachnoid and intraventricular hemorrhage with early obstructive hydrocephalus developing. She was placed given propofol and Cardene drip. Cardene drip and propofol was stopped secondary to hypotension on the way to the ED. Neurosurgical consultation was requested 05/28: intubated and sedated, s/p placement of ventriculostomy drain. CTA Brain neg for aneurysm, for cerebral angiography today, 05/29: seen this am during am round, withdrawing in the lower extremities, did not open eyes or follow commands for me, was reported to have followed with nursing. Cerebral angiography yesterday was neg for aneurysm. Then sergei Mario , patient having seizures, and posturing. ICPs has been 8-10, nursing reports EVD draining, CSF blood tinged. Transcranial doppler early this am negative for vasospasm 3/1: extends in uppers, withdraws in LEs 3/2: minimal withdrawals in the lower extremities, and extension. f/u CT Brain shows increased ventriculomegaly. CTA Head unremarkable for intracranial aneurysm. f/u EEG reports severe encephalopathy. ICPs at highest 8 overnight. ( Allison Mccullough) Labs, Micro, & Vital Signs Results Date Time Temp Pulse Resp B/P Pulse Ox O2 Delivery O2 Flow Rate FiO2 05/31/16 08:39 100 40 05/31/16 06:00 99 05/31/16 04:29 99 40 05/31/16 04:00 94 05/31/16 04:00 50 05/31/16 04:00 99.7 94 21 126/51 99 05/31/16 02:00 95 05/31/16 01:06 99 40 05/31/16 00:00 98 05/31/16 00:00 50 05/31/16 00:00 99.9 98 19 116/46 98 05/30/16 22:00 101 05/30/16 20:39 99 40 05/30/16 20:00 97 05/30/16 20:00 97 05/30/16 20:00 50 05/30/16 20:00 99.9 97 21 129/51 98 05/30/16 18:00 100 05/30/16 16:54 97 40 05/30/16 16:00 99.7 97 27 129/51 97 05/30/16 16:00 97 05/30/16 16:00 50 05/30/16 14:00 100 05/31/16 07:00 Intake Total 4301 ml Output Total 2607 ml Balance 1694 ml Constitutional Vital Signs Date Time Temp Pulse Resp B/P Pulse Ox O2 Delivery O2 Flow Rate FiO2 05/31/16 08:39 100 40 05/31/16 06:00 99 05/31/16 04:29 99 40 05/31/16 04:00 94 05/31/16 04:00 50 05/31/16 04:00 99.7 94 21 126/51 99 05/31/16 02:00 95 05/31/16 01:06 99 40 05/31/16 00:00 98 05/31/16 00:00 50 05/31/16 00:00 99.9 98 19 116/46 98 05/30/16 22:00 101 05/30/16 20:39 99 40 05/30/16 20:00 97 05/30/16 20:00 97 05/30/16 20:00 50 05/30/16 20:00 99.9 97 21 129/51 98 05/30/16 18:00 100 05/30/16 16:54 97 40 05/30/16 16:00 99.7 97 27 129/51 97 05/30/16 16:00 97 05/30/16 16:00 50 05/30/16 14:00 100 05/31/16 07:00 Intake Total 4301 ml Output Total 2607 ml Balance 1694 ml (Allison Mccullough) Review of Systems/Exam Exam Ms. Michaels is intubated and sedated. She does not open eyes, does not follow commands for me. Right ventriculostomy drain at 5 cm H20, CSF blood tinged, ICPs = 6-8. Cranial Nerves: Pupils 4 mm b/l reactive, conjugate gaze Sensorimotor: very minimal movement to proximal UE with nailbed pressure, otherwise no spontaneous movements Plantars silent bilaterally. Cerebellar: Examination cannot be adequately assessed due to the patient's neurological condition. (Allison Mccullough) Exam Ms. Michaels is intubated and sedated. She does not open eyes, she wiggled her toes to command Right ventriculostomy drain at 0 cm H20, draining well, CSF blood tinged, ICPs = 2 Cranial Nerves: Pupils 4 mm b/l reactive with intermittent spontaneous relaxation and constriction of pupil, conjugate gaze Sensorimotor: slightly wiggled toes to command. Plantars silent b/l Cerebellar: Examination cannot be adequately assessed due to the patient's neurological condition. (Arcenio Mtz MD) Medications Current Medications Current Medications Medications (Trade) Dose Ordered Sig/Jerry Route PRN Reason Start Time Stop Time Status Last Admin Dose Admin Propofol 100 ml @ 0 mls/hr TITRATE IV 05/27/16 19:45 05/28/16 23:16 Sodium Chloride (NS 1000 ml Inj) 1,000 ml @ 84 mls/hr [id number] IV 05/27/16 21:00 05/31/16 08:31 IV Flush (NS Flush) 2 ml UNSCH PRN IV FLUSH FLUSH AFTER USING IV ACCESS 05/27/16 20:45 05/27/16 22:30 IV Flush (NS Flush) 2 ml BID IV FLUSH 05/27/16 21:00 05/30/16 20:02 Acetaminophen (Tylenol) 650 mg Q6H PRN PO PAIN 1-10 AND/OR FEVER >101F 05/27/16 20:45 Famotidine (Pepcid Inj) 20 mg Q12HR IV PUSH 05/27/16 21:00 05/31/16 08:34 Artificial Tears (Tears Naturale Opth Soln) 1 drop TID EACH EYE 05/28/16 09:00 05/31/16 12:18 Ondansetron HCl (Zofran Inj) 4 mg Q6H PRN IV NAUSEA OR VOMITING 05/27/16 20:45 Docusate Sodium (Colace Liq) 100 mg Q12H G-TUBE 05/27/16 20:45 05/31/16 08:31 Miscellaneous Information 1 Q361D XX 05/27/16 20:45 05/27/16 20:45 Chlorhexidine Gluconate (Chlorhexidine 2% Cloth) 3 pack Taper DAILY@04 TOP 05/28/16 04:00 05/24/17 03:59 05/31/16 03:58 Chlorhexidine Gluconate 3 pack 3 pack UNSCH PRN TOP HYGIENIC CARE 05/27/16 20:45 Nicardipine HCl/ Sodium Chloride (Cardene Inj/NS 250 ml Inj) 260 ml @ 0 mls/hr TITRATE IV 05/27/16 21:00 05/29/16 14:00 Nimodipine (Nimotop) 60 mg Q4HR PO 05/28/16 00:00 05/31/16 14:55 Pravastatin Sodium 40 mg 40 mg HS PO 05/27/16 21:00 05/30/16 20:02 Sodium Chloride 500 ml @ 20 mls/hr UNSCH IV 05/27/16 21:30 06/01/16 21:29 05/29/16 23:27 Levetriacetam (Keppra 1000 Mg Inj) 100 ml @ 400 mls/hr Q12HR IV 05/28/16 09:00 05/31/16 08:35 Terbutaline Sulfate 1 mg 1 mg UNSCH PRN SQ For Extravasation 05/27/16 22:45 Potassium Chloride 100 ml @ 50 mls/hr Q2H PRN IV For Potassium 2.8 - 3.2 mEq/L 05/28/16 01:45 05/30/16 08:01 Potassium Chloride (KCl 20 Meq Premix Inj) 100 ml @ 50 mls/hr Q2H PRN IV For Potassium 2.8 - 3.2 mEq/L 05/28/16 01:45 Potassium Chloride 40 meq 40 meq UNSCH PRN PO/TUBE For Potassium 3.3 - 3.5 mEq/L 05/28/16 01:45 Potassium Chloride 100 ml @ 25 mls/hr UNSCH PRN IV For Potassium 3.3 - 3.5 mEq/L 05/28/16 01:45 05/30/16 18:33 Potassium Chloride 100 ml @ 50 mls/hr Q2H PRN IV For Potassium 3.3 - 3.5 mEq/L 05/28/16 01:45 Magnesium Sulfate/ Sodium Chloride (Magnesium Sulfate Inj/NS Inj) 100 ml @ 50 mls/hr UNSCH PRN IV For Magnesium 0.9 - 1.1 mg/dL 05/28/16 01:45 Magnesium Oxide 800 mg 800 mg UNSCH PRN PO For Magnesium 1.2 - 1.6 mg/dL 05/28/16 01:45 Magnesium Sulfate/ Sodium Chloride (Magnesium Sulfate Inj/NS Inj) 100 ml @ 50 mls/hr UNSCH PRN IV For Magnesium 1.2 - 1.6 mg/dL 05/28/16 01:45 Potassium Phosphate 2000 mg 2,000 mg Q4H PRN PO For Phosphorus < 2.5 mg/dL 05/28/16 01:45 Sodium Phosphate/ Sodium Chloride (Sodium Phosphate Inj/NS 250 ml Inj) 250 ml @ 42 mls/hr UNSCH PRN IV For Phosphorus < 2.5 mg/dL 05/28/16 01:45 05/28/16 06:34 Potassium Chloride (KCl 40 Meq/30 ml Liq) 40 meq UNSCH PRN PO/TUBE SEE LABEL COMMENTS 05/28/16 01:45 Potassium Phosphate 2000 mg 2,000 mg UNSCH PRN PO/TUBE SEE LABEL COMMENTS 05/28/16 01:45 Potassium Phosphate/Sodium Chloride (Potassium Phosphate Inj/NS 250 ml Inj) 260 ml @ 42 mls/hr UNSCH PRN IV SEE LABEL COMMENTS 05/28/16 01:45 Dextrose (D50w (Vial) Inj) 25 ml UNSCH PRN IV PUSH HYPOGLYCEMIA-SEE COMMENTS 05/29/16 07:30 Insulin Human Regular (NovoLIN R SUPPLEMENTAL SCALE) 1 Q6HR SQ 05/29/16 12:00 05/30/16 23:44 Fosphenytoin Sodium 200 mgpe 200 mgpe Q12HR IV 05/29/16 21:00 05/31/16 08:34 Vasopressin/ Sodium Chloride (Pitressin Inj/ NS Inj) 102 ml @ 6.12 mls/hr [id number] IV 05/29/16 21:00 05/31/16 05:43 Hydrocortisone Sodium Succinate 50 mg 50 mg Q6H IV PUSH 05/30/16 09:00 05/31/16 14:55 Norepinephrine Bitartrate 16 mg/ Sodium Chloride 262 ml @ 0 mls/hr TITRATE IV 05/30/16 09:45 Phenylephrine HCl/ Sodium Chloride (Neosynephrine Inj/NS 500 ml Inj) 500 ml @ 0 mls/hr TITRATE IV 05/30/16 10:00 05/30/16 17:50 (Allison Mccullough) Medical Decision Making MDM Remarks 66 y/o female with subarachnoid hemorrhage suspected intracranial aneurysm, placement of ventriculostomy drain CTA Head negative for aneurysm, Cerebral angiography neg for aneurysm repeat CTA 05/31 again without signs of aneurysm or AVMs, f/u CT Brain 05/31 with slightly increased ventricle size (Allison Mccullough) Plan Plan Remarks cont antiepileptics, f/u CT and CTA Head reviewed, cont EVD draining, decrease to 0 cm H20 and cont close monitoring of ICPs, cont nimodipine repeat EEG today to ensure seizure controlled dw Dr. Mario (Allison Mccullough) Attending Statement Continue neuro checks in a serial fashion. follow-up CT and CTA, and there is no clear evidence of an aneurysm A follow-up TCD will be obtained. Follow-up angiography next week Continue CSF drainage via ventriculostomy Consult interventional neuroradiologist for a cerebral angiography early next week Xarelto has been reverse Respiratory. Continue mechanical ventilation in assist contyrol mode of mechanical ventilation, pulmonary toilette, nasotracheal suction, and breathing treatments with nebulizers. Hypertension As needed Cardene to maintain systolic blood pressure less than 150. PT and OT eval Nutrition. 2 feedings Renal. Continue to monitor closely urine output, BUN and creatinine Endocrine. Continue to Monitor serial Acu checks and SSI for tight control ID continue to monitor for signs of infection Continue Protonix for stress ulcer prophylaxis Continue Julio hose and SCD's for DVT prophylaxis Further recommendations will be provided depending on the patient clinical evaluation and follow up studies. Discussed in detail with neurointensivist, Dr Mario, and with her has been at bedside (Arcenio Mtz MD) Allison Mccullough May 31, 2016 12:49 Arcenio Mtz MD Jun 03, 2016 14:17
--- NOTE | 2016-05-31 15:30 | RADRPT ---
EXAM DATE/TIME: 05/31/2016 11:29 [facility] COMPARISON: US TRANSCRANIAL DOPPLER COMPLETE, May 30, 2016, 9:28. INDICATIONS : Subarachnoid hemorrhage. MEDICAL HISTORY : Hypercholesterolemia. Hypertension. Cardiovascular disease Anticoagulant therapy. A-Fib. Hydrocephalu s. Respiratory failure. SURGICAL HISTORY : Right frontal Sb hole with ventriculostomy catheter -Subarachnoid hemorrhage. Endotrach intubation. ENCOUNTER: Subsequent ACUITY: 3 days PAIN SCORE: Nonresponsive. LOCATION: Bilateral cranial Current Ultrasound: May 31 2016 [place] Ratio: 1.6 1.9 [place] Ratio: 1.3 1.5 Previous Ultrasound: May 30 2016 [place] Ratio: 1.4 0.7 [place] Ratio: 1.0 0.4 FINDINGS: Examination performed at bedside. Real-time ultrasound with the assistance of color and spectral Dop pler was utilized to evaluate the intracerebral circulation. Time-averaged maximal velocities are ca lculated in cm/s. Parameters remain within normal limits and unchanged from the prior study. CONCLUSION: 1. No evidence of vasospasm. Brandon Herrera MD on May 31, 2016 at 15:28 Board Certified Radiologist. This report was verified electronically.
[2016-05-31] MEDS: PRAVASTATIN SOD 40 MG TAB PO SCH (20:13)
[2016-06-01] VITALS (17 sets, daily range): BP systolic 134–150; BP diastolic 59–69; PULSE 102–112; RESP 16–26; TEMP 99.7–100.4; O2SAT 93–100
[2016-06-01] MEDS: niMODipine 30 MG CAP PO SCH ×5 (03:17→20:41)
[2016-06-01] MEDS: CHLORHEXIDINE GLUCONATE 2 % 1 PACK (2 CLOTHS) TOP SCH (03:18)
[2016-06-01] MEDS: HYDROCORTISONE SOD SUCCINATE 100 MG VIAL IV PUSH SCH ×2 (03:18→08:33)
[2016-06-01 04:30] LABS: HEMATOCRIT 31.4 % (35.0-46.0); MEAN CELL VOLUME 91.7 FL (80.0-100.0); MEAN CORPUSCULAR HGB CONC 33.8 % (32.0-36.0); PLATELET COUNT 223 TH/MM3 (150-450); RED BLOOD COUNT 3.42 MIL/MM3 (4.00-5.30); RED CELL DISTRIBUTION WIDTH 14.9 % (11.6-17.2); REVIEW FLAG FINAL; WHITE BLOOD COUNT 15.8 TH/MM3 (4.0-11.0)
[2016-06-01 05:11] LABS: BICARBONATE 20.5 MEQ/L (21.0-32.0)
[2016-06-01 05:37] LABS: POTASSIUM 2.9 MEQ/L (3.5-5.1)
[2016-06-01] MEDS: POTASSIUM CHLOR 40 MEQ PREMIX 100 ML IV PRN ×4 (05:39→20:40)
[2016-06-01] MEDS: INSULIN NovoLIN REGULAR SUPPLEMENTAL SCALE SQ SCH ×3 (05:46→17:53)
[2016-06-01] MEDS: DOCUSATE SODIUM 100 MG/10 ML UDC G-TUBE SCH ×2 (08:07→20:41)
[2016-06-01] MEDS: SODIUM CHLOR 0.9% 1000 ML INJ 1,000 ML IV SCH ×2 (08:32→16:50)
[2016-06-01] MEDS: ARTIFICIAL TEARS OPTH SOLN 15 ML BTL EACH EYE SCH ×3 (08:33→16:49)
[2016-06-01] MEDS: FOSPHENYTOIN SODIUM 100 MG PE/2 ML VIAL IV SCH ×2 (08:34→20:41)
[2016-06-01] MEDS: levETIRAcetam 1000 MG INJ 100 ML IV SCH ×2 (08:35→20:42)
[2016-06-01] MEDS: SODIUM CHLORIDE 0.9% FLUSH 5 ML FLUSH IV FLUSH SCH ×2 (08:35→20:42)
[2016-06-01] MEDS: FAMOTIDINE 20 MG/2 ML VIAL IV PUSH SCH ×2 (08:35→20:40)
--- NOTE | 2016-06-01 09:51 | RADRPT ---
EXAM DATE/TIME: 06/01/2016 07:52 [facility] COMPARISON: US TRANSCRANIAL DOPPLER COMPLETE, May 31, 2016, 11:29. INDICATIONS : Subarachnoid hemorrhage. MEDICAL HISTORY : Hypercholesterolemia. Hypertension. Cardiovascular disease Anticoagulation the rapy. A-fib. Hydrocephalus. Respiratory failure. SURGICAL HISTORY : Right frontal [place] hole with ventriculostomy catheter-Subarachnoid hemorr rabia. Endotrach intubation. ENCOUNTER: Sequela ACUITY: 4-6 days PAIN SCORE: Nonresponsive. LOCATION: Bilateral cranial RIGHT: LEFT: Current Ultrasound: Jun 01 2016 [place] Ratio: 2.0 2.1 [place] Ratio: 1.5 1.4 Previous Ultrasound: May 31 2016 [place] Ratio: 1.6 1.9 [place] Ratio: 1.3 1.5 FINDINGS: Examination performed at bedside. Real-time ultrasound with the assistance of color an d spectral Doppler was utilized to evaluate the intracerebral circulation. Time-averaged maximal harsh ocities are calculated in cm/s. Examination of the anterior circulation demonstrates normal velocities bilaterally. The [place] an d [place] ratios are normal. Posterior fossa vessels also demonstrate no findings of vasospasm. CONCLUSION: No evidence of vasospasm. Brandon Herrera MD on June 01, 2016 at 9:33 Board Certified Radiologist. This report was verified electronically.
--- NOTE | 2016-06-01 11:16 | HHI.CCPN ---
Subjective Remarks/Hospital Course Hospital Course: 66 years old female was transferred to [facility] from [facility] in [place]. Patient and her was vacationing from [place]. They aware on the train while at around 2:00 patient started having severe headache and then vomited and then had a syncopal episode. Patient was transported to [facility] in [place]. On the way to the hospital, patient started having respiratory problem and patient was subsequently intubated. Patient has history of atrial fibrillation and hypertension and on Xarelto 20 mg daily, atorvastatin, HCTZ/ losartan, metoprolol. CT scan of the brain done at [facility] in [place] shows diffuse subarachnoid hemorrhage with intraventricular extension and early obstructive hydrocephalus developing. Dr. Mtz, neurosurgeon at [facility] was contacted and accepted transfer. Subjective: 05/28: slight improvements, withdrawing to deep nailbed pressure. on cardene for hypertension. plan for angio today or tomorrow. 05/29: worsening neuro exam overnight. repeat head CT with effacement, slight compression of the brainstem. angiogram overnight without evidence of aneurysm or vasospasm. more hypotensive this morning on norepinephrine. flaccid x 4, no cough or gag. propofol turned off at 0600. 05/30: EEG with evidence of seizures. Keppra increased yesterday and Cerebryx loaded. this morning, on increasing vasopressor requirements. added phenylephrine on top of maximal levophed, vasopressin. echo with prelim hyperdynamic biventricular function. ICP stable. poor neurologic function. posturing in UEs. 05/31: vasopressors weaned overnight significantly, but remains on some support. repeat EEG improved with no evidence of ongoing ictal activity. ICP stable. this morning, no longer following commands in LEs, no longer posturing in upper extremities. discussed care with Dr. Mtz, will plan to go to CT/CTA brain to r /o vasospasm. 06/01: CTA yesterday without evidence of vasospasm. TCDs negative today for vasospasm. still will intermittently follow commands in LEs, nothing in upper extremities. Na still very high, 160s. ICP well controlled. off vasopressors. Objective Vital Signs Date Time Temp Pulse Resp B/P Pulse Ox O2 Delivery O2 Flow Rate FiO2 06/01/16 10:02 95 30 06/01/16 10:00 108 06/01/16 08:00 99.7 23 150/66 05/28/16 19:00 Mechanical Ventilator Intake and Output 05/31/16 05/31/16 06/01/16 08:00 16:00 00:00 Intake Total 1047 ml 485 ml 655 ml Output Total 629 ml 575 ml 1071 ml Balance 418 ml -90 ml -416 ml Result Diagram: 06/01/16 0400 06/01/16 0850 Imaging Last 24 hours Impressions Chest X-Ray 05/27/16 1941 Signed Impressions: Service Date/Time: Friday, May 27, 2016 20:01 - CONCLUSION: No acute disease. Adequate placement of endotracheal tube. Juvencio Encarnacion MD Objective Remarks GENERAL: elderly female, critically ill patient in coma. SKIN: Warm and dry. HEAD: Normocephalic. EYES: No scleral icterus. No injection or drainage. NECK: Supple, trachea midline. No JVD or lymphadenopathy. CARDIOVASCULAR: Regular rate and rhythm without murmurs, gallops, or rubs. RESPIRATORY: Breath sounds equal bilaterally. No accessory muscle use. GASTROINTESTINAL: Abdomen soft, non-tender, nondistended. MUSCULOSKELETAL: No cyanosis, or edema. Neuro: to my exam this morning off sedation, no movement in uppers, weakly following commands LEs. A/P Problem List: (1) Subarachnoid hemorrhage ICD Code: I60.9 Status: Acute (2) Atrial fibrillation ICD Code: I48.91 Status: Acute (3) Coagulopathy ICD Code: D68.9 Status: Acute (4) Respiratory failure ICD Code: J96.90 Status: Acute (5) Hypertension ICD Code: I10 Status: Acute Assessment and Plan Assessment: This is a 66yF now Post-Bleed Day 5 s/p spontaneous Subarachnoid Hemorrhage. Angio negative x 1. Course is complicated by elevated ICP and resolving distributive shock. still high risk for vasospasm. continue daily TCDs. Nimodipine. avoid hypovolemia. strict q1h neuro checks. remains very critically ill. Discussed care with Dr. Mtz this morning, and he agrees with the plan. Will also obtain MRI as brainstem AVM could cause her symptoms. updated family at bedside. Goals remain aggressive. Plan by systems: Neurologic: Spontaneous subarachnoid bleed Intracranial hypertension Status post external ventricular drain Malignant cerebral edema Seizures Every hour neuro checks Avoid hypovolemia Nimodipine Four-vessel angiogram 05/29 negative for aneurysm of vasospasm off sedation, as long as ICPs are controlled Elevated Head of bed --stop 3%. gently normalize sodium. start with enteral free water. --Keppra and Cerebyx --repeat EEG again today --Dr. Mtz: neurosurgery -- CT/CTA 05/31: no evidence of vasospasm. -- daily TCDs Respiratory: Hypoxic and hypercarbic respiratory failure Vent bundle Head of bed elevated Wean FiO2 for goal SPO2 greater than 92% Nebs every 6 and every 2 when necessary Does not meet SBT criteria given mental status. Cardiovascular: Severe vasoplegia/Distributive Shock- resolving. Continue arterial line. Off vasopressors this morning. Continue goal SBP 140 - 180. Nimodipine Renal: Parker for strict I's and O's -- Strict I/Os Avoid hypovolemia FEN/GI: Maintenance fluids normal saline. Avoid hypovolemia start tube feeds, jevity 1.5, nutrition consult for goal. ICU electrolyte protocol Daily BMP Heme/ID: Coagulopathy secondary to anticoagulation use- resolved. Daily CBC Status post K Centra Does not meet transfusion triggers at this time --holding Eliquis given SAH. Endocrine: Hyperglycemia of critical illness -- SSI, every 6 hours, medium scale Prophylaxis: GI Prophylaxis Protonix 40 mg IV every 12 hours DVT Prophylaxis -- SCDs Holding pharmacologic DVT prophylaxis given intracranial hemorrhage Lines: 05/27 right IJ triple lumen catheter 05/30 left axillary arterial line. Parker EVD Dispo: Remain in the ICU. She remains very critically ill. This patient remains critically ill with one or more organ systems which are or may become a threat to life. I have spent in excess of 48 minutes discontinuously in the care and management of this patient. This time is exclusive of procedures, and includes, but is not limited to, evaluation of the patient, review of the medical record, discussions with family, consultants, nursing staff, or respiratory therapy, and documentation in the medical record. Andrew Sykes MD Jun 01, 2016 11:16
[2016-06-01] MEDS ORDERED: EPINEPHrine HCL (1:10,000) 1 MG/10 ML SYRINGE ONE (11:27)
[2016-06-01] MEDS ORDERED: ATROPINE SULFATE 1 MG/10 ML SYRINGE ONE (11:28)
[2016-06-01] MEDS ORDERED: LIDOCAINE HCL 2% 100 MG/5 ML SYRINGE ONE (11:28)
[2016-06-01] MEDS ORDERED: FREE WATER OG SCH (12:00)
--- NOTE | 2016-06-01 12:46 | HHI.NSPN ---
(Allison Mccullough) Note Status Status: Progress Note (Allison Mccullough) Interval History Interval History This is a 66 years old female was transferred to [facility] from [facility] for a subarachnoid hemorrhage. The patient and the was vacationing from [place]. They were on the train. Patient's states that around 2:00 this afternoon she suddenly developed severe headache and then vomited, and then had a syncopal episode. The train stopped. EMS was called. EMS personnel state that patient had altered status was able to follow commands and beginning without focal neurological deficit. No seizure activity. No tongue bitting. No tonic clonic movements. no incontinence of stool or urine. She was transported to [facility] in [place]. On the way to the hospital, she developed respiratory problem and patient was subsequently endotracheally intubated. She has history of atrial fibrillation and hypertension and was anticoagulated with Xarelto 20 mg daily. In addition she takes atorvastatin, HCTZ/ losartan, metoprolol. CT scan of the brain done at [facility] in [place] shows extensive subarachnoid and intraventricular hemorrhage with early obstructive hydrocephalus developing. She was placed given propofol and Cardene drip. Cardene drip and propofol was stopped secondary to hypotension on the way to the ED. Neurosurgical consultation was requested 05/28: intubated and sedated, s/p placement of ventriculostomy drain. CTA Brain neg for aneurysm, for cerebral angiography today, 05/29: seen this am during am round, withdrawing in the lower extremities, did not open eyes or follow commands for me, was reported to have followed with nursing. Cerebral angiography yesterday was neg for aneurysm. Then sergei Mario , patient having seizures, and posturing. ICPs has been 8-10, nursing reports EVD draining, CSF blood tinged. Transcranial doppler early this am negative for vasospasm 3/1: extends in uppers, withdraws in LEs 3/2: minimal withdrawals in the lower extremities, and extension. f/u CT Brain shows increased ventriculomegaly. CTA Head unremarkable for intracranial aneurysm. f/u EEG reports severe encephalopathy. ICPs at highest 8 overnight. 06/01: this morning slightly wiggled toes to command. ICPs below 5, EVD draining blood tinged CSF. (Allison Mccullough) Labs, Micro, & Vital Signs Results Date Time Temp Pulse Resp B/P Pulse Ox O2 Delivery O2 Flow Rate FiO2 06/01/16 10:02 95 30 06/01/16 10:00 108 06/01/16 08:23 98 30 06/01/16 08:00 30 06/01/16 08:00 105 06/01/16 08:00 99.7 105 23 150/66 97 06/01/16 06:00 104 06/01/16 04:00 99 30 06/01/16 04:00 108 06/01/16 04:00 99.7 108 26 136/60 100 06/01/16 04:00 40 06/01/16 02:00 112 06/01/16 00:21 97 40 06/01/16 00:00 99.7 110 22 144/62 98 06/01/16 00:00 50 06/01/16 00:00 108 05/31/16 22:00 102 05/31/16 20:00 99.7 106 18 146/62 99 05/31/16 20:00 107 05/31/16 20:00 50 05/31/16 18:00 104 05/31/16 16:14 98 40 05/31/16 16:00 102 05/31/16 16:00 99.3 102 21 126/50 98 05/31/16 16:00 50 05/31/16 14:00 106 06/01/16 07:00 Intake Total 1765 ml Output Total 2503 ml Balance -738 ml Constitutional Vital Signs Date Time Temp Pulse Resp B/P Pulse Ox O2 Delivery O2 Flow Rate FiO2 06/01/16 10:02 95 30 06/01/16 10:00 108 06/01/16 08:23 98 30 06/01/16 08:00 30 06/01/16 08:00 105 06/01/16 08:00 99.7 105 23 150/66 97 06/01/16 06:00 104 06/01/16 04:00 99 30 06/01/16 04:00 108 06/01/16 04:00 99.7 108 26 136/60 100 06/01/16 04:00 40 06/01/16 02:00 112 06/01/16 00:21 97 40 06/01/16 00:00 99.7 110 22 144/62 98 06/01/16 00:00 50 06/01/16 00:00 108 05/31/16 22:00 102 05/31/16 20:00 99.7 106 18 146/62 99 05/31/16 20:00 107 05/31/16 20:00 50 05/31/16 18:00 104 05/31/16 16:14 98 40 05/31/16 16:00 102 05/31/16 16:00 99.3 102 21 126/50 98 05/31/16 16:00 50 05/31/16 14:00 106 06/01/16 07:00 Intake Total 1765 ml Output Total 2503 ml Balance -738 ml (Allison Mccullough) Review of Systems/Exam Exam Ms. Michaels is intubated and sedated. She does not open eyes, she had slightly wiggled her toes to command Right ventriculostomy drain at 0 cm H20, draining well, CSF blood tinged, ICPs = 2 Cranial Nerves: Pupils 4 mm b/l reactive with intermittent spontaneous relaxation and constriction of pupil, conjugate gaze Sensorimotor: slightly wiggled toes to command. Plantars silent b/l Cerebellar: Examination cannot be adequately assessed due to the patient's neurological condition. (Allison Mccullough) Exam Ms. Michaels is intubated and sedated. She does not open eyes, she wiggled her toes to command Right ventriculostomy drain at 0 cm H20, draining well, CSF blood tinged, ICPs = 2 Cranial Nerves: Pupils 4 mm b/l reactive with intermittent spontaneous relaxation and constriction of pupil, conjugate gaze Sensorimotor: slightly wiggled toes to command. Plantars silent b/l Cerebellar: Examination cannot be adequately assessed due to the patient's neurological condition. (Arcenio Mtz MD) Medications Current Medications Current Medications Medications (Trade) Dose Ordered Sig/Jerry Route PRN Reason Start Time Stop Time Status Last Admin Dose Admin Propofol 100 ml @ 0 mls/hr TITRATE IV 05/27/16 19:45 05/28/16 23:16 Sodium Chloride (NS 1000 ml Inj) 1,000 ml @ 84 mls/hr [id number] IV 05/27/16 21:00 06/01/16 08:32 IV Flush (NS Flush) 2 ml UNSCH PRN IV FLUSH FLUSH AFTER USING IV ACCESS 05/27/16 20:45 05/27/16 22:30 IV Flush (NS Flush) 2 ml BID IV FLUSH 05/27/16 21:00 06/01/16 08:35 Acetaminophen (Tylenol) 650 mg Q6H PRN PO PAIN 1-10 AND/OR FEVER >101F 05/27/16 20:45 Famotidine (Pepcid Inj) 20 mg Q12HR IV PUSH 05/27/16 21:00 06/01/16 08:35 Artificial Tears (Tears Naturale Opth Soln) 1 drop TID EACH EYE 05/28/16 09:00 06/01/16 11:42 Ondansetron HCl (Zofran Inj) 4 mg Q6H PRN IV NAUSEA OR VOMITING 05/27/16 20:45 Docusate Sodium (Colace Liq) 100 mg Q12H G-TUBE 05/27/16 20:45 05/31/16 20:14 Miscellaneous Information 1 [id number] XX 05/27/16 20:45 05/27/16 20:45 Chlorhexidine Gluconate (Chlorhexidine 2% Cloth) 3 pack Taper DAILY@04 TOP 05/28/16 04:00 05/24/17 03:59 06/01/16 03:18 Chlorhexidine Gluconate 3 pack 3 pack UNSCH PRN TOP HYGIENIC CARE 05/27/16 20:45 Nicardipine HCl/ Sodium Chloride (Cardene Inj/NS 250 ml Inj) 260 ml @ 0 mls/hr TITRATE IV 05/27/16 21:00 05/29/16 14:00 Nimodipine (Nimotop) 60 mg Q4HR PO 05/28/16 00:00 06/01/16 11:09 Pravastatin Sodium 40 mg 40 mg HS PO 05/27/16 21:00 05/31/16 20:13 Levetriacetam 100 ml @ 400 mls/hr Q12HR IV 05/28/16 09:00 06/01/16 08:35 Potassium Chloride 100 ml @ 50 mls/hr Q2H PRN IV For Potassium 2.8 - 3.2 mEq/L 05/28/16 01:45 06/01/16 08:36 Potassium Chloride (KCl 20 Meq Premix Inj) 100 ml @ 50 mls/hr Q2H PRN IV For Potassium 2.8 - 3.2 mEq/L 05/28/16 01:45 Potassium Chloride 40 meq 40 meq UNSCH PRN PO/TUBE For Potassium 3.3 - 3.5 mEq/L 05/28/16 01:45 Potassium Chloride 100 ml @ 25 mls/hr UNSCH PRN IV For Potassium 3.3 - 3.5 mEq/L 05/28/16 01:45 05/30/16 18:33 Potassium Chloride 100 ml @ 50 mls/hr Q2H PRN IV For Potassium 3.3 - 3.5 mEq/L 05/28/16 01:45 Magnesium Sulfate/ Sodium Chloride (Magnesium Sulfate Inj/NS Inj) 100 ml @ 50 mls/hr UNSCH PRN IV For Magnesium 0.9 - 1.1 mg/dL 05/28/16 01:45 Magnesium Oxide 800 mg 800 mg UNSCH PRN PO For Magnesium 1.2 - 1.6 mg/dL 05/28/16 01:45 Magnesium Sulfate/ Sodium Chloride (Magnesium Sulfate Inj/NS Inj) 100 ml @ 50 mls/hr UNSCH PRN IV For Magnesium 1.2 - 1.6 mg/dL 05/28/16 01:45 Potassium Phosphate 2000 mg 2,000 mg Q4H PRN PO For Phosphorus < 2.5 mg/dL 05/28/16 01:45 Sodium Phosphate/ Sodium Chloride (Sodium Phosphate Inj/NS 250 ml Inj) 250 ml @ 42 mls/hr UNSCH PRN IV For Phosphorus < 2.5 mg/dL 05/28/16 01:45 05/28/16 06:34 Potassium Chloride (KCl 40 Meq/30 ml Liq) 40 meq UNSCH PRN PO/TUBE SEE LABEL COMMENTS 05/28/16 01:45 Potassium Phosphate 2000 mg 2,000 mg UNSCH PRN PO/TUBE SEE LABEL COMMENTS 05/28/16 01:45 Potassium Phosphate/Sodium Chloride (Potassium Phosphate Inj/NS 250 ml Inj) 260 ml @ 42 mls/hr UNSCH PRN IV SEE LABEL COMMENTS 05/28/16 01:45 Dextrose (D50w (Vial) Inj) 25 ml UNSCH PRN IV PUSH HYPOGLYCEMIA-SEE COMMENTS 05/29/16 07:30 Insulin Human Regular (NovoLIN R SUPPLEMENTAL SCALE) 1 Q6HR SQ 05/29/16 12:00 05/31/16 18:03 Fosphenytoin Sodium 200 mgpe 200 mgpe Q12HR IV 05/29/16 21:00 06/01/16 08:34 Norepinephrine Bitartrate/Sodium Chloride (Levophed Inj/NS 250 ml Inj) 262 ml @ 0 mls/hr TITRATE IV 05/30/16 09:45 Water (Free Water) 200 ml Q6HR OG 06/01/16 12:00 06/01/16 11:09 (Allison Mccullough) Medical Decision Making MDM Remarks 66 y/o female with subarachnoid hemorrhage suspected intracranial aneurysm, placement of ventriculostomy drain, draining well, ICPs within normal range CTA Head negative for aneurysm, Cerebral angiography neg for aneurysm repeat CTA 05/31 again without signs of aneurysm or AVMs, f/u CT Brain 05/31 with slightly increased ventricle size (Allison Mccullough) Plan Plan Remarks cont EVD draining at 0 cm H20 and cont monitoring of ICPs, MRI Brain and MRI Cervical spine to rule out mass lesion in view of negative angiogram findings, cont nimodipine Dr. Mtz dw in detail, his questions answered (Allison Mccullough) Attending Statement Continue neuro checks in a serial fashion. Her follow-up CT and CTA was reviewed, without clear evidence of an aneurysm A follow-up TCD will be obtained. Follow-up angiography next week Continue CSF drainage via ventriculostomy Consult interventional neuroradiologist for a cerebral angiography early next week Xarelto has been reverse Respiratory. Continue mechanical ventilation in assist contyrol mode of mechanical ventilation, pulmonary toilette, nasotracheal suction, and breathing treatments with nebulizers. Hypertension As needed Cardene to maintain systolic blood pressure less than 150. PT and OT eval Nutrition. 2 feedings Renal. Continue to monitor closely urine output, BUN and creatinine Endocrine. Continue to Monitor serial Acu checks and SSI for tight control ID continue to monitor for signs of infection Continue Protonix for stress ulcer prophylaxis Continue Julio hose and SCD's for DVT prophylaxis Further recommendations will be provided depending on the patient clinical evaluation and follow up studies. Discussed in detail with neurointensivist, Dr Mario, and with her has been at bedside The exam, history, and the medical decision-making described in the above note were completed with the assistance of the mid-level provider. I reviewed and agree with the findings presented. I attest that I had a [id number] encounter with the patient on the same day, and personally performed and documented my assessment and findings in the medical record. (Arcenio Mtz MD) Allison Mccullough Jun 01, 2016 12:46 Arcenio Mtz MD Jun 03, 2016 14:10
[2016-06-01] MEDS ORDERED: GADODIAMIDE PF 287 MG/ML 20 ML VIAL (for RAD MRI) IV ONE (12:50)
--- NOTE | 2016-06-01 13:29 | RADRPT ---
EXAM DATE/TIME: 06/01/2016 12:14 [facility] COMPARISON: No previous studies available for comparison. INDICATIONS : Mass. CONTRAST: 16 cc Omniscan (gadodiamide) IV MEDICAL HISTORY : Hypertension. Hypercholesterolemia. SURGICAL HISTORY : Cardiac cath. ENCOUNTER: Initial ACUITY: 2 day PAIN SCORE: Nonresponsive. LOCATION: head TECHNIQUE: Multiplanar, multisequence MRI of the brain was performed both prior to and following the administrat ion of paramagnetic contrast. FINDINGS: Patient has a ventriculostomy in place and has suffered a large intraventricular hemorrhage. Blood r emains in the intraventricular space. Angiography has been negative for an aneurysm. There is no focal mass identified. In the post contrast scans there is excellent visualization of intracranial structures and I do not s ee a potential site of intraventricular hemorrhage. There is no evidence for an arterial venous malformation. Posterior fossa is unremarkable. I do not see evidence for an aneurysm. CONCLUSION: 1. Intraventricular blood, negative for mass. Dillon Zaragoza MD FACR on June 01, 2016 at 13:16 Board Certified Radiologist. This report was verified electronically.
--- NOTE | 2016-06-01 13:32 | RADRPT ---
EXAM DATE/TIME: 06/01/2016 12:14 [facility] COMPARISON: No previous studies available for comparison. INDICATIONS : Mass. CONTRAST: 16 cc Omniscan (gadodiamide) IV MEDICAL HISTORY : Hypertension. Hypercholesterolemia. SURGICAL HISTORY : Cardiac cath ENCOUNTER: Initial ACUITY: 2 day PAIN SCORE: Nonresponsive. LOCATION: neck TECHNIQUE: Multiplanar, multisequence MRI examination of the cervical spine was performed. FINDINGS: By MRI the marrow signal in the cervical vertebra appear homogeneous and normal. There is blood in t he subarachnoid space. I do not see a vascular anomaly to account for this. C2-C3: The thecal sac has a normal configuration. There is no evidence of disc herniation or spinal canal s tenosis. The neural foramina are patent bilaterally. C3-C4: The thecal sac has a normal configuration. There is no evidence of disc herniation or spinal canal s tenosis. The neural foramina are patent bilaterally. C4-C5: The thecal sac has a normal configuration. There is no evidence of disc herniation or spinal canal s tenosis. The neural foramina are patent bilaterally. C5-C6: Very mild uncinate ridging is present with significant spinal stenosis. C6-C7: Mild uncinate ridging is present without significant spinal stenosis. CONCLUSION: Large amount of blood in the subarachnoid space. I do not see a mass. Etiology for the hemorrhage i s not apparent. Dillon Zaragoza MD FACR on June 01, 2016 at 13:20 Board Certified Radiologist. This report was verified electronically.
[2016-06-01 16:11] LABS: POTASSIUM 2.7 MEQ/L (3.5-5.1)
[2016-06-01] MEDS ORDERED: SODIUM CHLOR 0.9% 1000 ML INJ 1,000 ML IV ONE (16:45)
[2016-06-01] MEDS: POTASSIUM CL 40 MEQ/30 ML LIQ UDC PO/TUBE PRN ×2 (16:50→18:27)
[2016-06-01] MEDS: ACETAMINOPHEN 325 MG TAB PO PRN (17:59)
[2016-06-01 18:18] LABS: BLOOD, URINE TRACE (NEG); GLUCOSE,URINE NEG (NEG); KETONE, URINE NEG (NEG); MUCUS URINE FEW /lpf (OCC); NITRITE,URINE NEG (NEG); URINE COLOR LIGHT-YELLOW (YELLW/STRAW)
[2016-06-01] MEDS: FREE WATER OG SCH (20:00)
[2016-06-01] MEDS: PRAVASTATIN SOD 40 MG TAB PO SCH (20:41)
[2016-06-02] VITALS (17 sets, daily range): BP systolic 135–184; BP diastolic 67–94; PULSE 92–108; RESP 18–21; TEMP 98.6–101.2; O2SAT 95–99
[2016-06-02] MEDS: SODIUM CHLOR 0.9% 1000 ML INJ 1,000 ML IV SCH ×3 (00:26→20:12)
[2016-06-02] MEDS: niMODipine 30 MG CAP PO SCH ×7 (00:27→23:33)
[2016-06-02] MEDS: CHLORHEXIDINE GLUCONATE 2 % 1 PACK (2 CLOTHS) TOP SCH (03:11)
[2016-06-02] MEDS: FREE WATER OG SCH ×7 (03:45→23:21)
[2016-06-02] MEDS: ACETAMINOPHEN 325 MG TAB PO PRN ×3 (04:20→22:11)
[2016-06-02 05:03] LABS: HEMATOCRIT 32.6 % (35.0-46.0); MEAN CELL VOLUME 91.6 FL (80.0-100.0); MEAN CORPUSCULAR HEMOGLOBIN 30.8 PG (27.0-34.0); MEAN CORPUSCULAR HGB CONC 33.6 % (32.0-36.0); PLATELET COUNT 194 TH/MM3 (150-450); RED BLOOD COUNT 3.56 MIL/MM3 (4.00-5.30); RED CELL DISTRIBUTION WIDTH 14.3 % (11.6-17.2); REVIEW FLAG FINAL; WHITE BLOOD COUNT 14.8 TH/MM3 (4.0-11.0)
[2016-06-02 05:27] LABS: POTASSIUM 3.5 MEQ/L (3.5-5.1)
[2016-06-02] MEDS: POTASSIUM CHLOR 20 MEQ PREMIX 100 ML IV PRN ×2 (05:38→08:34)
[2016-06-02] MEDS: INSULIN NovoLIN REGULAR SUPPLEMENTAL SCALE SQ SCH ×5 (05:38→23:33)
[2016-06-02] MEDS: FAMOTIDINE 20 MG/2 ML VIAL IV PUSH SCH ×2 (08:20→20:12)
[2016-06-02] MEDS: SODIUM CHLORIDE 0.9% FLUSH 5 ML FLUSH IV FLUSH SCH ×2 (08:21→20:12)
[2016-06-02] MEDS: DOCUSATE SODIUM 100 MG/10 ML UDC G-TUBE SCH ×2 (08:21→20:10)
[2016-06-02] MEDS: ARTIFICIAL TEARS OPTH SOLN 15 ML BTL EACH EYE SCH ×3 (08:21→18:00)
[2016-06-02] MEDS: levETIRAcetam 1000 MG INJ 100 ML IV SCH ×2 (08:21→20:12)
--- NOTE | 2016-06-02 08:26 | HHI.CCPN ---
Subjective Remarks/Hospital Course Hospital Course: 66 years old female was transferred to [facility] from [facility] in [place]. Patient and her was vacationing from [place]. They aware on the train while at around 2:00 patient started having severe headache and then vomited and then had a syncopal episode. Patient was transported to [facility] in [place]. On the way to the hospital, patient started having respiratory problem and patient was subsequently intubated. Patient has history of atrial fibrillation and hypertension and on Xarelto 20 mg daily, atorvastatin, HCTZ/ losartan, metoprolol. CT scan of the brain done at [facility] in [place] shows diffuse subarachnoid hemorrhage with intraventricular extension and early obstructive hydrocephalus developing. Dr. Mtz, neurosurgeon at [place] was contacted and accepted transfer. Subjective: 05/28: slight improvements, withdrawing to deep nailbed pressure. on cardene for hypertension. plan for angio today or tomorrow. 05/29: worsening neuro exam overnight. repeat head CT with effacement, slight compression of the brainstem. angiogram overnight without evidence of aneurysm or vasospasm. more hypotensive this morning on norepinephrine. flaccid x 4, no cough or gag. propofol turned off at 0600. 05/30: EEG with evidence of seizures. Keppra increased yesterday and Cerebryx loaded. this morning, on increasing vasopressor requirements. added phenylephrine on top of maximal levophed, vasopressin. echo with prelim hyperdynamic biventricular function. ICP stable. poor neurologic function. posturing in UEs. 05/31: vasopressors weaned overnight significantly, but remains on some support. repeat EEG improved with no evidence of ongoing ictal activity. ICP stable. this morning, no longer following commands in LEs, no longer posturing in upper extremities. discussed care with Dr. Mtz, will plan to go to CT/CTA brain to r /o vasospasm. 06/01: CTA yesterday without evidence of vasospasm. TCDs negative today for vasospasm. still will intermittently follow commands in LEs, nothing in upper extremities. Na still very high, 160s. ICP well controlled. off vasopressors. 06/02: Na coming down slowly. TCDs pending for today. neuro exam stable. phenytoin level borderline high. Objective Vital Signs Date Time Temp Pulse Resp B/P Pulse Ox O2 Delivery O2 Flow Rate FiO2 06/02/16 07:32 97 40 06/02/16 06:00 99 06/02/16 04:00 101.2 18 157/73 Intake and Output 06/01/16 06/01/16 06/02/16 08:00 16:00 00:00 Intake Total 625 ml 1110 ml 5999 ml Output Total 857 ml 1741 ml 5595 ml Balance -232 ml -631 ml 404 ml Result Diagram: 06/02/16 0400 06/02/16 0400 Imaging Last 24 hours Impressions Chest X-Ray 05/27/16 1941 Signed Impressions: Service Date/Time: Friday, May 27, 2016 20:01 - CONCLUSION: No acute disease. Adequate placement of endotracheal tube. Juvencio Encarnacion MD Objective Remarks GENERAL: elderly female, critically ill patient in coma. SKIN: Warm and dry. HEAD: Normocephalic. EYES: No scleral icterus. No injection or drainage. NECK: Supple, trachea midline. No JVD or lymphadenopathy. CARDIOVASCULAR: Regular rate and rhythm without murmurs, gallops, or rubs. RESPIRATORY: Breath sounds equal bilaterally. No accessory muscle use. GASTROINTESTINAL: Abdomen soft, non-tender, nondistended. MUSCULOSKELETAL: No cyanosis, or edema. Neuro: to my exam this morning off sedation, no movement in uppers, weakly following commands LEs. A/P Problem List: (1) Subarachnoid hemorrhage ICD Code: I60.9 Status: Acute (2) Atrial fibrillation ICD Code: I48.91 Status: Acute (3) Coagulopathy ICD Code: D68.9 Status: Acute (4) Respiratory failure ICD Code: J96.90 Status: Acute (5) Hypertension ICD Code: I10 Status: Acute Assessment and Plan Assessment: This is a 66yF now Post-Bleed Day 6 s/p spontaneous Subarachnoid Hemorrhage. Angio negative x 1. Course is complicated by elevated ICP and resolving distributive shock. still high risk for vasospasm. continue daily TCDs. Nimodipine. avoid hypovolemia. strict q1h neuro checks. remains very critically ill. Updated family at bedside. Goals remain aggressive. Plan by systems: Neurologic: Spontaneous subarachnoid bleed Intracranial hypertension Status post external ventricular drain Malignant cerebral edema Seizures q1h neuro checks Avoid hypovolemia Nimodipine Four-vessel angiogram 05/29 negative for aneurysm of vasospasm off sedation, as long as ICPs are controlled Elevated Head of bed --s/p 3% nacl. slowly normalizing Na, eventual goal Na 140 - 145. continue enteral free water --Keppra and Cerebyx, decrease Cerebyx to 100mg iv q12h. recheck phenytoin level 06/05 (already ordered) --Dr. Mtz: neurosurgery -- CT/CTA 05/31: no evidence of vasospasm. -- daily TCDs, so far negative for vasospasm. -- will need repeat angio after 7 days to confirm (around 06/05). Respiratory: Hypoxic and hypercarbic respiratory failure Vent bundle Head of bed elevated Wean FiO2 for goal SPO2 greater than 92% Nebs every 6 and every 2 when necessary Does not meet SBT criteria given mental status. --will likely need tracheostomy for mental status. now that her ICPs are controlled, could consider trach/peg early next week. Cardiovascular: Severe vasoplegia/Distributive Shock- resolving. Continue arterial line. Off vasopressors. without evidence of vasospasm, as long as CPP is maintained, will relax bp goals to SBP 120 - 180. Nimodipine Renal: Parker for strict I's and O's -- Strict I/Os Avoid hypovolemia FEN/GI: Hypernatremia Acute protein calorie malnutrition- mild Maintenance fluids normal saline. Avoid hypovolemia tube feeds, jevity 1.5, nutrition consult for goal. ICU electrolyte protocol Daily BMP Heme/ID: Coagulopathy secondary to anticoagulation use- resolved. Daily CBC Status post K Centra Does not meet transfusion triggers at this time --holding Eliquis given SAH. Endocrine: Hyperglycemia of critical illness -- SSI, every 6 hours, medium scale Prophylaxis: GI Prophylaxis pepcid iv q12h. DVT Prophylaxis -- SCDs Holding pharmacologic DVT prophylaxis given intracranial hemorrhage Lines: 05/27 right IJ triple lumen catheter 05/30 left axillary arterial line. Elena COOMBS Dispo: Remain in the ICU. She remains very critically ill. This patient remains critically ill with one or more organ systems which are or may become a threat to life. I have spent in excess of 41 minutes discontinuously in the care and management of this patient. This time is exclusive of procedures, and includes, but is not limited to, evaluation of the patient, review of the medical record, discussions with family, consultants, nursing staff, or respiratory therapy, and documentation in the medical record. Andrew Sykes MD Jun 02, 2016 08:26
--- NOTE | 2016-06-02 09:59 | RADRPT ---
EXAM DATE/TIME: 06/02/2016 09:40 [facility] COMPARISON: CHEST SINGLE AP, May 27, 2016, 21:28. INDICATIONS : Shortness of breath. Atelectasis. MEDICAL HISTORY : Cardiovascular disease. Hypertension. SURGICAL HISTORY : None. ENCOUNTER: Subsequent ACUITY: 3 days PAIN SCORE: Non-responsive. LOCATION: Bilateral chest FINDINGS: Portable AP view of the chest demonstrates a normal-sized cardiac silhouette. Endotracheal tube is pr esent with distal tip measuring 3 cm from the kwan. Right IJ line distal tip is in the SVC and NG t ube courses beyond the GE junction. There is a bekge-ni-bxdmtzkd size left basilar pleural-parenchyma l opacity. There is hazy opacity at the right lung base. No pneumothorax is visualized. CONCLUSION: 1. New zfdco-fc-tqkklgli size left pleural effusion with associated atelectasis and/or consolidation. 2. Hazy opacity at the right base may represent atelectasis versus consolidation. Lauro Lamb MD on June 02, 2016 at 9:56 Board Certified Radiologist. This report was verified electronically.
--- NOTE | 2016-06-02 10:07 | RADRPT ---
EXAM DATE/TIME: 06/02/2016 07:40 [facility] COMPARISON: US TRANSCRANIAL DOPPLER COMPLETE, June 01, 2016, 7:52. INDICATIONS : Subarachnoid hemorrhage. MEDICAL HISTORY : Hypercholesterolemia. Hypertension. Cerebrovascular disease. A-Fib. Hydrocephalus. Respiratory failu re. SURGICAL HISTORY : Right frontal Sb hole with ventriculostomy catheter-Subarachnoid hemorrage. Endotrach intubation. ENCOUNTER: Subsequent ACUITY: 3 weeks PAIN SCORE: Nonresponsive. LOCATION: Bilateral cranial RIGHT: LEFT: Current Ultrasound: Jun 02 2016 [place] Ratio: 1.1 2.2 [place] Ratio: 1.9 1.4 Previous Ultrasound: Jun 01 2016 [place] Ratio: 2.0 2.1 [place] Ratio: 1.5 1.4 FINDINGS: Examination performed at bedside. Real-time ultrasound with the assistance of color and spectral Dop pler was utilized to evaluate the intracerebral circulation. Time-averaged maximal velocities are ca lculated in cm/s. Velocity trend documents slightly increased velocities compared to the baseline examination. However, ratios remain within normal limits. CONCLUSION: Intracranial velocities had trended slightly higher compared to the baseline examination but the rati os remain within normal limits suggesting physiologic factors as the cause. Currently, there are no f indings to suggest vasospasm. Lauro Lamb MD on June 02, 2016 at 10:03 Board Certified Radiologist. This report was verified electronically.
[2016-06-02] MEDS: FOSPHENYTOIN SODIUM 100 MG PE/2 ML VIAL IV SCH ×2 (10:11→20:11)
--- NOTE | 2016-06-02 17:25 | HHI.NSPN ---
History Chief Complaint: intubated and sedated Interval History 66-year-old female with acute onset of severe headache. Transferred from [facility] to [facility] on 05/27/16 with spontaneous subarachnoid hemorrhage. CTA 2 negative thus far. Intubated and sedated since admission Exam Results Vital Signs Date Time Temp Pulse Resp B/P Pulse Ox O2 Delivery O2 Flow Rate FiO2 06/02/16 16:00 92 06/02/16 16:00 98.6 19 135/81 98 Arterial Line 06/02/16 12:01 30 Intake and Output 06/01/16 06/01/16 06/02/16 08:00 16:00 00:00 Intake Total 625 ml 1110 ml 5999 ml Output Total 857 ml 1741 ml 5595 ml Balance -232 ml -631 ml 404 ml Physical Examination Ms. Michaels is intubated. No eye opening to voice or deep pain. Right ventriculostomy drain, minimal drainage seen, CSF in reservoir is blood tinged, ICPs = 4 Cranial Nerves: Pupils 4 mm b/l reactive, conjugate mild oculocephalic movement Sensorimotor: she is extending in her upper extremities to nailbed pressure and mildly withdraws to lower extremities to nailbed pressure. Mixed flexion and extension to the ipsilateral chest pain in the upper extremities. Reflexes: There is a bilateral plantar flexion response. Cerebellar: Examination cannot be adequately assessed due to the patient's neurological condition. Lab, Micro, Other Results 06/01/2016 MRI brain and cervical spine images reviewed. No evidence of intracranial mass lesion, CVA, significant edema or mass effect. Transcranial Doppler Study Complete 06/02/16 0215 Signed Impressions: Service Date/Time: Thursday, June 02, 2016 07:40 - CONCLUSION: Intracranial velocities had trended slightly higher compared to the baseline examination but the ratios remain within normal limits suggesting physiologic factors as the cause. Currently, there are no findings to suggest vasospasm. Lauro Lamb MD Chest X-Ray 06/02/16 0000 Signed Impressions: Service Date/Time: Thursday, June 02, 2016 09:40 - CONCLUSION: 1. New yrnla-xw-ozcmimqd size left pleural effusion with associated atelectasis and/ or consolidation. 2. Hazy opacity at the right base may represent atelectasis versus consolidation. Lauro Lamb MD Cervical Spine MRI 06/01/16 0000 Signed Impressions: Service Date/Time: Wednesday, June 01, 2016 12:14 - CONCLUSION: Large amount of blood in the subarachnoid space. I do not see a mass. Etiology for the hemorrhage is not apparent. Dillon Zaragoza MD FACR Brain MRI 06/01/16 0000 Signed Impressions: Service Date/Time: Wednesday, June 01, 2016 12:14 - CONCLUSION: 1. Intraventricular blood, negative for mass. Dillon Zaragoza MD FACR Head CTA 05/31/16 0000 Signed Impressions: Service Date/Time: May 10:44 - CONCLUSION: 1. No evidence of vasospasm Brandon Herrera MD Head CT 05/31/16 0000 Signed Impressions: Service Date/Time: May 10:44 - CONCLUSION: Extensive subarachnoid hemorrhage including significant hemorrhage in the foramen magnum similar to the 05/29/16 exam. The ventricles do appear to be larger today with significant intraventricular hemorrhage present. Ventriculostomy catheter in good position. David Spencer MD Cerebral Arteriogram 05/28/16 0000 Signed Impressions: Service Date/Time: Saturday, May 28, 2016 23:54 - CONCLUSION: 1. No evidence of aneurysm. 2. 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 3. The left vertebral artery could not be catheterized Brandon Herrera MD Laboratory Tests Test 06/01/16 06/01/16 06/02/16 06/02/16 17:48 21:40 00:00 04:00 Urine Color LIGHT-YELLOW Urine Turbidity CLEAR Urine pH 5.0 Urine Specific Ho[place] 1.010 Urine Protein NEG mg/dL Urine Glucose (UA) NEG mg/dL Urine Ketones NEG mg/dL Urine Occult Blood TRACE Urine Nitrite NEG Urine Bilirubin NEG Urine Urobilinogen LESS THAN 2.0 MG/DL Urine Leukocyte Esterase NEG Urine RBC 2 /hpf Urine WBC 3 /hpf Urine Mucus FEW /lpf Microscopic Urinalysis Comment Urine Osmolality 529 MOSM/KG Urine Random Sodium 183 MEQ/L Sodium Level 158 MEQ/L 155 MEQ/L Potassium Level 3.7 MEQ/L 3.5 MEQ/L White Blood Count 14.8 TH/MM3 Red Blood Count 3.56 MIL/MM3 Hemoglobin 10.9 GM/DL Hematocrit 32.6 % Mean Corpuscular Volume 91.6 FL Mean Corpuscular Hemoglobin 30.8 PG Mean Corpuscular Hemoglobin 33.6 % Concent Red Cell Distribution Width 14.3 % Platelet Count 194 TH/MM3 Mean Platelet Volume 9.6 FL Chloride Level 121 MEQ/L Carbon Dioxide Level 25.0 MEQ/L Anion Gap 9 MEQ/L Blood Urea Nitrogen 14 MG/DL Creatinine 0.56 MG/DL Estimat Glomerular Filtration 108 ML/MIN Rate Random Glucose 146 MG/DL Calcium Level 8.0 MG/DL Phenytoin (Dilantin) Level 20.8 MCG/ML Test 06/02/16 11:45 Sodium Level 151 MEQ/L Potassium Level 3.7 MEQ/L Medical Decision Making Impression and Plan Impression: 1. Spontaneous subarachnoid hemorrhage, unknown etiology. CTA, MRI brain negative thus far for vascular or focal mass lesion. No evidence of vasospasm on 06/02/16 transcranial Doppler Plan: Continue ventilatory support and sedation as needed. Continue ventriculostomy for now. We will begin to challenge ventriculostomy Continue monitoring sodium and electrolytes. Presently satisfactory. Michi Burton MD Jun 02, 2016 17:25
[2016-06-02] MEDS: PRAVASTATIN SOD 40 MG TAB PO SCH (20:10)
[2016-06-03] VITALS (15 sets, daily range): BP systolic 139–165; BP diastolic 64–90; PULSE 102–112; RESP 19–21; TEMP 98.6–99.9; O2SAT 92–99
[2016-06-03] MEDS: CHLORHEXIDINE GLUCONATE 2 % 1 PACK (2 CLOTHS) TOP SCH (03:09)
[2016-06-03] MEDS: niCARdipine INJ 25 MG in SODIUM CHLOR 0.9% 250 ML INJ 250 ML IV SCH ×2 (03:09→23:16)
[2016-06-03] MEDS: SODIUM CHLOR 0.9% 1000 ML INJ 1,000 ML IV SCH ×4 (03:10→23:51)
[2016-06-03] MEDS: FREE WATER OG SCH ×4 (03:10→16:00)
[2016-06-03] MEDS: niMODipine 30 MG CAP PO SCH ×6 (03:51→23:16)
[2016-06-03 04:26] LABS: HEMATOCRIT 34.6 % (35.0-46.0); MEAN CELL VOLUME 91.3 FL (80.0-100.0); MEAN CORPUSCULAR HEMOGLOBIN 30.9 PG (27.0-34.0); MEAN CORPUSCULAR HGB CONC 33.8 % (32.0-36.0); PLATELET COUNT 179 TH/MM3 (150-450); RED BLOOD COUNT 3.79 MIL/MM3 (4.00-5.30); RED CELL DISTRIBUTION WIDTH 14.1 % (11.6-17.2); REVIEW FLAG FINAL; WHITE BLOOD COUNT 12.6 TH/MM3 (4.0-11.0)
[2016-06-03] MEDS: ACETAMINOPHEN 325 MG TAB PO PRN ×4 (04:33→23:32)
[2016-06-03 04:59] LABS: POTASSIUM 3.1 MEQ/L (3.5-5.1)
[2016-06-03] MEDS: POTASSIUM CHLOR 40 MEQ PREMIX 100 ML IV PRN (05:31)
[2016-06-03] MEDS: POTASSIUM CL 40 MEQ/30 ML LIQ UDC PO/TUBE PRN ×2 (05:31→12:44)
[2016-06-03] MEDS: INSULIN NovoLIN REGULAR SUPPLEMENTAL SCALE SQ SCH ×4 (05:41→23:55)
[2016-06-03] MEDS: SODIUM CHLORIDE 0.9% FLUSH 5 ML FLUSH IV FLUSH SCH ×2 (08:23→20:14)
[2016-06-03] MEDS: FAMOTIDINE 20 MG/2 ML VIAL IV PUSH SCH ×2 (08:23→20:13)
[2016-06-03] MEDS: levETIRAcetam 1000 MG INJ 100 ML IV SCH ×2 (08:23→20:13)
[2016-06-03] MEDS: DOCUSATE SODIUM 100 MG/10 ML UDC G-TUBE SCH ×2 (08:24→20:45)
[2016-06-03] MEDS: ARTIFICIAL TEARS OPTH SOLN 15 ML BTL EACH EYE SCH ×3 (08:24→17:50)
[2016-06-03] MEDS: FOSPHENYTOIN SODIUM 100 MG PE/2 ML VIAL IV SCH ×2 (08:24→20:14)
--- NOTE | 2016-06-03 09:18 | RADRPT ---
EXAM DATE/TIME: 06/03/2016 07:16 [facility] COMPARISON: US TRANSCRANIAL DOPPLER COMPLETE, June 02, 2016, 7:40. INDICATIONS : Subarachnoid hemorrhage. MEDICAL HISTORY : Hypercholesterolemia. Hypertension. Cerebrovascular disease. A-Fib. Hydrocephalus. Respiratory failu re. SURGICAL HISTORY : Right frontal Sb hole with ventriculostomy drain. ENCOUNTER: Subsequent ACUITY: 2 weeks PAIN SCORE: Nonresponsive. LOCATION: Bilateral cranial RIGHT: LEFT: Current Ultrasound: Jun 03 2016 [place] Ratio: 2.7 2.3 [place] Ratio: 2.7 1.8 Previous Ultrasound: Jun 02 2016 [place] Ratio: 1.1 2.2 [place] Ratio: 1.9 1.4 FINDINGS: Examination performed at bedside. Real-time ultrasound with the assistance of color and spectral Dop pler was utilized to evaluate the intracerebral circulation. Time-averaged maximal velocities are ca lculated in cm/s. No elevated velocities or ratios are appreciated. CONCLUSION: There are no findings to indicate vasospasm. Lauro Lamb MD on June 03, 2016 at 9:16 Board Certified Radiologist. This report was verified electronically.
--- NOTE | 2016-06-03 10:12 | HHI.CCPN ---
Subjective Remarks/Hospital Course Hospital Course: 66 years old female was transferred to [facility] from [facility] in [place]. Patient and her was vacationing from [place]. They aware on the train while at around 2:00 patient started having severe headache and then vomited and then had a syncopal episode. Patient was transported to [facility] in [place]. On the way to the hospital, patient started having respiratory problem and patient was subsequently intubated. Patient has history of atrial fibrillation and hypertension and on Xarelto 20 mg daily, atorvastatin, HCTZ/ losartan, metoprolol. CT scan of the brain done at [facility] in [place] shows diffuse subarachnoid hemorrhage with intraventricular extension and early obstructive hydrocephalus developing. Dr. Mtz, neurosurgeon at [facility] was contacted and accepted transfer. 05/28: slight improvements, withdrawing to deep nailbed pressure. on cardene for hypertension. plan for angio today or tomorrow. 05/29: worsening neuro exam overnight. repeat head CT with effacement, slight compression of the brainstem. angiogram overnight without evidence of aneurysm or vasospasm. more hypotensive this morning on norepinephrine. flaccid x 4, no cough or gag. propofol turned off at 0600. 05/30: EEG with evidence of seizures. Keppra increased yesterday and Cerebryx loaded. this morning, on increasing vasopressor requirements. added phenylephrine on top of maximal levophed, vasopressin. echo with prelim hyperdynamic biventricular function. ICP stable. poor neurologic function. posturing in UEs. 05/31: vasopressors weaned overnight significantly, but remains on some support. repeat EEG improved with no evidence of ongoing ictal activity. ICP stable. this morning, no longer following commands in LEs, no longer posturing in upper extremities. discussed care with Dr. Mtz, will plan to go to CT/CTA brain to r /o vasospasm.06/01: CTA yesterday without evidence of vasospasm. TCDs negative today for vasospasm. still will intermittently follow commands in LEs, nothing in upper extremities. Na still very high, 160s. ICP well controlled. off vasopressors. 06/02: Na coming down slowly. TCDs pending for today. neuro exam stable. phenytoin level borderline high. Subjective: 06/03: Tmax 1.4. Currently 99.1. Tolerating tube feeds at goal. Positive BM. Neuro exam remains stable. Objective Vital Signs Date Time Temp Pulse Resp B/P Pulse Ox O2 Delivery O2 Flow Rate FiO2 06/03/16 08:00 50 06/03/16 08:00 102 06/03/16 08:00 99.1 20 165/82 97 Automatic Cuff Intake and Output 06/02/16 06/02/16 06/03/16 08:00 16:00 00:00 Intake Total 3532 ml 2454 ml 4591 ml Output Total 3214.0 ml 1575.0 ml 2175 ml Balance 318.0 ml 879.0 ml 2416 ml Result Diagram: 06/03/16 0415 06/03/16 0415 Imaging Last Impressions Transcranial Doppler Study Complete 06/03/16 0215 Signed Impressions: Service Date/Time: Friday, June 03, 2016 07:16 - CONCLUSION: There are no findings to indicate vasospasm. Lauro Lamb MD Chest X-Ray 06/02/16 0000 Signed Impressions: Service Date/Time: Thursday, June 02, 2016 09:40 - CONCLUSION: 1. New [id number] size left pleural effusion with associated atelectasis and/ or consolidation. 2. Hazy opacity at the right base may represent atelectasis versus consolidation. Lauro Lamb MD Cervical Spine MRI 06/01/16 0000 Signed Impressions: Service Date/Time: Wednesday, June 01, 2016 12:14 - CONCLUSION: Large amount of blood in the subarachnoid space. I do not see a mass. Etiology for the hemorrhage is not apparent. Dillon Zaragoza MD FACR Brain MRI 06/01/16 0000 Signed Impressions: Service Date/Time: Wednesday, June 01, 2016 12:14 - CONCLUSION: 1. Intraventricular blood, negative for mass. Dillon Zaragoza MD FACR Head CTA 05/31/16 0000 Signed Impressions: Service Date/Time: May 10:44 - CONCLUSION: 1. No evidence of vasospasm Brandon Herrera MD Head CT 05/31/16 0000 Signed Impressions: Service Date/Time: May 10:44 - CONCLUSION: Extensive subarachnoid hemorrhage including significant hemorrhage in the foramen magnum similar to the 05/29/16 exam. The ventricles do appear to be larger today with significant intraventricular hemorrhage present. Ventriculostomy catheter in good position. David Spencer MD Cerebral Arteriogram 05/28/16 0000 Signed Impressions: Service Date/Time: Saturday, May 28, 2016 23:54 - CONCLUSION: 1. No evidence of aneurysm. 2. 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 3. The left vertebral artery could not be catheterized Brandon Herrera MD Objective Remarks GENERAL: 66 year old female, critically ill currently orotracheally intubated SKIN: Warm and dry. No rash HEAD:tatus post right frontal daquan hole ventriculostomy EYES: PERRL. No scleral icterus. No injection or drainage. NECK: Supple, trachea midline. No JVD or lymphadenopathy. CARDIOVASCULAR: RRR. S1, S2 no sore. Without murmur RESPIRATORY: Breath sounds equal bilaterally. No accessory muscle use. GASTROINTESTINAL: Abdomen soft, non-tender, nondistended. Positive bowel sounds appreciated MUSCULOSKELETAL: With trace lower extremity edema Neuro: DTs had no significant movement in uppers extremities, weakly following commands LEs. A/P Problem List: (1) Subarachnoid hemorrhage ICD Code: I60.9 Status: Acute (2) Atrial fibrillation ICD Code: I48.91 Status: Acute (3) Coagulopathy ICD Code: D68.9 Status: Acute (4) Respiratory failure ICD Code: J96.90 Status: Acute (5) Hypertension ICD Code: I10 Status: Acute Assessment and Plan Neuro/Psych: Spontaneous subarachnoid bleed Intracranial hypertension Status post right daquan hole ventriculostomy Malignant cerebral edema Seizures CT head revealed subarachnoid hemorrhage/brainstem right greater than left and intraventricular hemorrhage on the third ventricle/foramen of Monro and lateral ventricle MRI/A revealed no mass/source of bleeding EEG 3/revealed moderate disc. Supple neuropathy. No epileptiform activity q1h neuro checks Nimodipine 60 mg every 4 hours for 21 days Four-vessel angiogram 05/29 negative for aneurysm of vasospasm. No FMD - unable to access left vertebral artery off sedation, as long as ICPs are controlled --s/p 3% nacl. slowly normalizing Na, eventual goal Na 140 - 145. Will hold free water --Keppra and Cerebyx, decrease Cerebyx to 100mg iv q12h. recheck phenytoin level 06/05 (already ordered) --Dr. Mtz: neurosurgery -- CT/CTA 05/31: no evidence of vasospasm. -- daily TCDs, so far negative for vasospasm. -- will need repeat angio after 7 days to confirm (around 06/05). Respiratory: Acute Hypoxic and hypercarbic respiratory failure PRVC ventilation 14/450/1/5/50 Vent bundle -- As needed bronchodilator therapy Head of bed elevated Wean FiO2 for goal SPO2 greater than 92% Does not meet SBT criteria given mental status. --will likely need tracheostomy for mental status. now that her ICPs are controlled, could consider trach/peg early next week. Cardiovascular: Severe vasoplegia/Distributive Shock- resolving. History of hypertension Dyslipidemia History fibrillation/chronic Continue arterial line./Left axillary Off vasopressors. without evidence of vasospasm, as long as CPP is maintained, will relax bp goals to SBP 120 - 180. Cardene drip if needed Nimodipine 60 mg every 4 Home medications are losartan/Advicor thousand 100/12.5 daily and metoprolol 25 mg twice a day. This is currently been held. Resume when clinically indicated Patient's current Pravachol 40 mg by mouth daily/hospital substitution for atorvastatin 20 mg at night anemia Echocardiogram 05/31 revealed EF 65%. Moderate TR. POLO 54 mm Hg Renal: Parker for strict I's and O's -- Strict I/Os Avoid hypovolemia FEN/GI: Hypernatremia Acute protein calorie malnutrition- mild Hypokalemia Maintenance fluids normal saline. Avoid hypovolemia tube feeds, jevity 1.5, goal 50 cc an hour -Pepcid twice a day for GI prophylaxis - Colace/Senokot for bowel regimen ICU electrolyte protocol Daily BMP Heme/ID: Coagulopathy secondary to Xarelto anticoagulation use for atrial fibrillation- resolved. Leukocytosis Daily CBC Status post K Centra Does not meet transfusion triggers at this time --holding Eliquis given SAH. Endocrine: Hyperglycemia of critical illness -- SSI, every 6 hours, medium scale Prophylaxis: GI Prophylaxis pepcid iv q12h. DVT Prophylaxis -- SCDs Holding pharmacologic DVT prophylaxis given intracranial hemorrhage Lines: 05/27 right IJ triple lumen catheter 05/30 left axillary arterial line. Parker EVD Critical Care: The total critical care time was 35 minutes. Time to perform other separately billable procedures was not included in the critical care time. Edd Crow MD Jun 03, 2016 10:12
[2016-06-03 12:33] LABS: POTASSIUM 3.5 MEQ/L (3.5-5.1)
[2016-06-03] MEDS: RESP: ALBUTEROL 2.5 MG/IPRATROPIUM 0.5 MG NEB (SCH) NEB ×2 (17:31→19:30)
--- NOTE | 2016-06-03 18:45 | HHI.NSPN ---
History Chief Complaint: intubated and sedated Interval History 66-year-old female with acute onset of severe headache. Transferred from [facility] to [facility] with spontaneous subarachnoid hemorrhage. CTA 2 negative thus far. Intubated and sedated since admission Exam Results Vital Signs Date Time Temp Pulse Resp B/P Pulse Ox O2 Delivery O2 Flow Rate FiO2 06/03/16 17:31 98 50 06/03/16 16:00 99.9 110 21 161/90 Intake and Output 06/02/16 06/02/16 06/03/16 08:00 16:00 00:00 Intake Total 3532 ml 2454 ml 4591 ml Output Total 3214.0 ml 1575.0 ml 2175 ml Balance 318.0 ml 879.0 ml 2416 ml Physical Examination Ms. Michaels is intubated and sedated. She does not open eyes Not following commands Mild flexion right upper extremity to deep pain Right ventriculostomy drain at 0 cm H20, draining well, CSF blood tinged, ICPs = 2 Cranial Nerves: Pupils 4 mm b/l reactive to 3 mm Mild disconjugate oculocephalic responses Moderate bilateral corneal response Sensorimotor: Mild flexion right upper extremity pain Plantars silent b/l Cerebellar: Examination cannot be adequately assessed due to the patient's neurological condition. Lab, Micro, Other Results Laboratory Tests Test 06/02/16 06/03/16 06/03/16 06/03/16 23:35 04:15 11:34 17:02 Sodium Level 147 MEQ/L 143 MEQ/L 142 MEQ/L 140 MEQ/L White Blood Count 12.6 TH/MM3 Red Blood Count 3.79 MIL/MM3 Hemoglobin 11.7 GM/DL Hematocrit 34.6 % Mean Corpuscular Volume 91.3 FL Mean Corpuscular Hemoglobin 30.9 PG Mean Corpuscular Hemoglobin 33.8 % Concent Red Cell Distribution Width 14.1 % Platelet Count 179 TH/MM3 Mean Platelet Volume 9.2 FL Potassium Level 3.1 MEQ/L 3.5 MEQ/L Chloride Level 107 MEQ/L Carbon Dioxide Level 26.0 MEQ/L Anion Gap 10 MEQ/L Blood Urea Nitrogen 13 MG/DL Creatinine 0.51 MG/DL Estimat Glomerular Filtration 121 ML/MIN Rate Random Glucose 186 MG/DL Calcium Level 7.7 MG/DL Uric Acid 1.0 MG/DL Test 06/03/16 17:04 Urine Random Sodium 169 MEQ/L Medical Decision Making Impression and Plan Impression: 1. Spontaneous subarachnoid hemorrhage, unknown etiology. CTA, MRI brain negative thus far for vascular or focal mass lesion. No evidence of vasospasm on 06/02/16 transcranial Doppler Plan: Continue ventilatory support and sedation as needed. Continue ventriculostomy for now. We will begin to challenge ventriculostomy Continue monitoring sodium and electrolytes. Presently satisfactory but decreasing sodium level. Michi Burton MD Jun 03, 2016 18:45
[2016-06-03] MEDS: PRAVASTATIN SOD 40 MG TAB PO SCH (20:13)
[2016-06-04] VITALS (15 sets, daily range): BP systolic 133–162; BP diastolic 65–78; PULSE 101–113; RESP 18–24; TEMP 98.3–100.9; O2SAT 94–100
[2016-06-04] MEDS: RESP: ALBUTEROL 2.5 MG/IPRATROPIUM 0.5 MG NEB (SCH) NEB ×4 (03:10→20:10)
[2016-06-04] MEDS: niMODipine 30 MG CAP PO SCH ×5 (04:00→19:50)
[2016-06-04] MEDS: CHLORHEXIDINE GLUCONATE 2 % 1 PACK (2 CLOTHS) TOP SCH (04:00)
--- NOTE | 2016-06-04 04:26 | RADRPT ---
EXAM DATE/TIME: 06/04/2016 03:24 [facility] COMPARISON: CHEST SINGLE AP, June 02, 2016, 9:40. INDICATIONS : Shortness of breath. MEDICAL HISTORY : Hypertension. Cardiovascular disease. SURGICAL HISTORY : None. ENCOUNTER: Subsequent ACUITY: 1 week PAIN SCORE: Non-responsive. LOCATION: Bilateral chest FINDINGS: A single view of the chest demonstrates . stable bibasilar airspace disease, left greater than right with probable associated left-sided effusion. Heart size is normal. Endotracheal tube is appropriatel y positioned above the kwan. Stable position of right IJ central venous catheter and nasogastric tu be. CONCLUSION: 1. Stable bibasilar airspace disease, left greater than right with probable associated left-sided eff usion. 2. Stable position of life support tubes. Immanuel Nix MD on June 04, 2016 at 4:24 Board Certified Radiologist. This report was verified electronically.
[2016-06-04] MEDS: niCARdipine INJ 25 MG in SODIUM CHLOR 0.9% 250 ML INJ 250 ML IV SCH ×5 (05:40→17:17)
[2016-06-04] MEDS: SODIUM CHLOR 0.9% 1000 ML INJ 1,000 ML IV SCH ×3 (06:31→19:51)
[2016-06-04 06:45] LABS: AUTOMATED NEUTROPHIL # 12.8 TH/MM3 (1.8-7.7); BASOPHIL # 0.1 TH/MM3 (0-0.2); BASOPHIL % 0.4 % (0.0-2.0); EOSINOPHIL # 0.1 TH/MM3 (0-0.4); EOSINOPHIL % 0.4 % (0.0-4.0); HEMATOCRIT 33.7 % (35.0-46.0); LYMPH % 5.2 % (9.0-44.0); LYMPHOCYTE # 0.7 TH/MM3 (1.0-4.8); MEAN CELL VOLUME 90.7 FL (80.0-100.0); MEAN CORPUSCULAR HEMOGLOBIN 30.6 PG (27.0-34.0); MEAN CORPUSCULAR HGB CONC 33.7 % (32.0-36.0); MONO % 3.7 % (0.0-8.0); NEUT % 90.3 % (16.0-70.0); PLATELET COUNT 163 TH/MM3 (150-450); RED BLOOD COUNT 3.72 MIL/MM3 (4.00-5.30); RED CELL DISTRIBUTION WIDTH 13.7 % (11.6-17.2); WHITE BLOOD COUNT 14.1 TH/MM3 (4.0-11.0)
[2016-06-04 06:51] LABS: HEMO FLAGS AUTO DIFF
[2016-06-04] MEDS: INSULIN NovoLIN REGULAR SUPPLEMENTAL SCALE SQ SCH ×3 (06:52→17:15)
[2016-06-04 07:23] LABS: ALKALINE PHOSPHATASE 95 U/L (45-117); ALT (GPT) 51 U/L (10-53); ANION GAP 9 MEQ/L (5-15); AST (GOT) 53 U/L (15-37); BICARBONATE 27.4 MEQ/L (21.0-32.0); BLOOD UREA NITROGEN 9 MG/DL (7-18); CHLORIDE 102 MEQ/L (98-107); GLOMERULAR FILTRATION RATE 129 ML/MIN (>89); MAGNESIUM 1.5 MG/DL (1.5-2.5); SODIUM (NA) 138 MEQ/L (136-145); TOTAL BILIRUBIN ADULT 0.5 MG/DL (0.2-1.0)
[2016-06-04 08:07] LABS: ACANTHOCYTES OCC (NORMAL); BANDS 21 % (0-6); EOSINOPHILS 1 % (0-4); METAMYELOCYTES 1 % (0-1); NEUTROPHIL # MANUAL DIFF 12.5 TH/MM3 (1.8-7.7); OVALOCYTES 1+ (NORMAL); PLATELET ESTIMATE SMEAR NORMAL (NORMAL); PLATELET MORPHOLOGY NORMAL (NORMAL); POLYS (SEG NEUTROPHILS) 67 % (16-70); WBC DIFF SAMPLE 100
[2016-06-04 08:08] LABS: SCAN/DIFF FINAL DIFF MANUAL
[2016-06-04] MEDS: SODIUM CHLORIDE 0.9% FLUSH 5 ML FLUSH IV FLUSH SCH ×2 (09:00→19:53)
[2016-06-04] MEDS: DOCUSATE SODIUM 100 MG/10 ML UDC G-TUBE SCH ×2 (10:35→19:50)
[2016-06-04] MEDS: ARTIFICIAL TEARS OPTH SOLN 15 ML BTL EACH EYE SCH ×3 (10:36→17:16)
[2016-06-04] MEDS: levETIRAcetam 1000 MG INJ 100 ML IV SCH ×2 (10:37→19:52)
[2016-06-04] MEDS: FOSPHENYTOIN SODIUM 100 MG PE/2 ML VIAL IV SCH ×2 (10:41→19:50)
[2016-06-04] MEDS: FAMOTIDINE 20 MG/2 ML VIAL IV PUSH SCH ×2 (10:41→19:50)
[2016-06-04] MEDS ORDERED: ATROPINE SULFATE 1 MG/10 ML SYRINGE ONE (10:51)
[2016-06-04] MEDS ORDERED: LIDOCAINE HCL 2% 100 MG/5 ML SYRINGE ONE (10:51)
--- NOTE | 2016-06-04 12:47 | RADRPT ---
EXAM DATE/TIME: 06/04/2016 08:05 [facility] COMPARISON: CT BRAIN W/O CONTRAST, May 29, 2016, 1:20. ANGIOGRAM, CEREBRAL WO ARCH, May 28, 2016, 23:5 4. US TRANSCRANIAL DOPPLER COMPLETE, June 03, 2016, 7:16. INDICATIONS : Subarachnoid hemorrhage. MEDICAL HISTORY : Hypercholesterolemia. Hypertension. Subarachnoid hemorrhage. Syncope. Cerebrovascular disease. A-Fi b. Hydrocephalus. Respiratory failure. Anticoagulant therapy. SURGICAL HISTORY : Right frontal [place] hole with ventriculostomy drain. ENCOUNTER: [facility]ela ACUITY: 1 week PAIN SCORE: Nonresponsive. LOCATION: Bilateral cranial RIGHT: LEFT: Current Ultrasound: Jun 04 2016. [place] Ratio: 0.8 0.9 [place] Ratio: 0.6 0.5 Previous Ultrasound: Jun 03 2016 [place] Ratio: 2.7 2.3 [place]ino Ratio: 2.7 1.8 FINDINGS: Examination performed at bedside. Real-time ultrasound with the assistance of color an d spectral Doppler was utilized to evaluate the intracerebral circulation. Time-averaged maximal harsh ocities are calculated in cm/s. Examination of the anterior circulation demonstrates normal velocities bilaterally. The Lindegaard an d Merino ratios are normal. Posterior fossa vessels also demonstrate no findings of vasospasm. CONCLUSION: No evidence of vasospasm. Brandon Herrera MD on June 04, 2016 at 12:19 Board Certified Radiologist. This report was verified electronically.
[2016-06-04] MEDS ORDERED: MAGNESIUM SULFATE 1 GM PREMIX 100 ML ONE (13:18)
--- NOTE | 2016-06-04 13:36 | HHI.NSPN ---
(Allison Mccullough) Note Status Status: Progress Note (Allison Mccullough) Interval History Interval History This is a 66 years old female was transferred to [facility] from [facility] for a subarachnoid hemorrhage. The patient and the was vacationing from [place]. They were on the train. Patient's states that around 2:00 this afternoon she suddenly developed severe headache and then vomited, and then had a syncopal episode. The train stopped. EMS was called. EMS personnel state that patient had altered status was able to follow commands and beginning without focal neurological deficit. No seizure activity. No tongue bitting. No tonic clonic movements. no incontinence of stool or urine. She was transported to [facility] in [place]. On the way to the hospital, she developed respiratory problem and patient was subsequently endotracheally intubated. She has history of atrial fibrillation and hypertension and was anticoagulated with Xarelto 20 mg daily. In addition she takes atorvastatin, HCTZ/ losartan, metoprolol. CT scan of the brain done at [facility] in [place] shows extensive subarachnoid and intraventricular hemorrhage with early obstructive hydrocephalus developing. She was placed given propofol and Cardene drip. Cardene drip and propofol was stopped secondary to hypotension on the way to the ED. Neurosurgical consultation was requested 05/28: intubated and sedated, s/p placement of ventriculostomy drain. CTA Brain neg for aneurysm, for cerebral angiography today, 05/29: seen this am during am round, withdrawing in the lower extremities, did not open eyes or follow commands for me, was reported to have followed with nursing. Cerebral angiography yesterday was neg for aneurysm. Then sergei Mario , patient having seizures, and posturing. ICPs has been 8-10, nursing reports EVD draining, CSF blood tinged. Transcranial doppler early this am negative for vasospasm 3/1: extends in uppers, withdraws in LEs 3/2: minimal withdrawals in the lower extremities, and extension. f/u CT Brain shows increased ventriculomegaly. CTA Head unremarkable for intracranial aneurysm. f/u EEG reports severe encephalopathy. ICPs at highest 8 overnight. 06/01: this morning slightly wiggled toes to command. ICPs below 5, EVD draining blood tinged CSF. 06/04: slightly opening eyes, EVD draining dark red CSF at 10 cm H20, ICPs at highest 8 overnight. (Allison Mccullough) Labs, Micro, & Vital Signs Results Date Time Temp Pulse Resp B/P Pulse Ox O2 Delivery O2 Flow Rate FiO2 06/04/16 12:00 55 06/04/16 11:01 96 55 06/04/16 08:00 98.8 110 24 150/78 06/04/16 08:00 55 06/04/16 07:29 95 55 06/04/16 06:00 113 06/04/16 04:04 94 60 06/04/16 04:00 109 06/04/16 04:00 50 06/04/16 04:00 98.4 109 19 151/70 95 06/04/16 02:00 101 06/04/16 01:05 97 60 06/04/16 00:00 101 06/04/16 00:00 99.9 101 21 133/69 97 06/04/16 00:00 50 06/03/16 22:00 108 06/03/16 20:00 98.6 107 19 143/89 96 06/03/16 20:00 50 06/03/16 20:00 107 06/03/16 19:32 98 50 06/03/16 17:31 98 50 06/03/16 16:00 99.9 110 21 161/90 95 06/03/16 16:00 110 06/04/16 06:59 Intake Total 4928 ml Output Total 4537.0 ml Balance 391.0 ml Constitutional Vital Signs Date Time Temp Pulse Resp B/P Pulse Ox O2 Delivery O2 Flow Rate FiO2 06/04/16 12:00 55 06/04/16 11:01 96 55 06/04/16 08:00 98.8 110 24 150/78 06/04/16 08:00 55 06/04/16 07:29 95 55 06/04/16 06:00 113 06/04/16 04:04 94 60 06/04/16 04:00 109 06/04/16 04:00 50 06/04/16 04:00 98.4 109 19 151/70 95 06/04/16 02:00 101 06/04/16 01:05 97 60 06/04/16 00:00 101 06/04/16 00:00 99.9 101 21 133/69 97 06/04/16 00:00 50 06/03/16 22:00 108 06/03/16 20:00 98.6 107 19 143/89 96 06/03/16 20:00 50 06/03/16 20:00 107 06/03/16 19:32 98 50 06/03/16 17:31 98 50 06/03/16 16:00 99.9 110 21 161/90 95 06/03/16 16:00 110 06/04/16 06:59 Intake Total 4928 ml Output Total 4537.0 ml Balance 391.0 ml (Allison Mccullough) Review of Systems/Exam Exam Ms. Michaels is intubated. Slight eye opening, does not follow commands. Right ventriculostomy drain at 10 cm H20, draining well, dark red CSF, ICPs = 4- 6 Cranial Nerves: Pupils 4 mm b/l reactive to 3 mm Sensorimotor: withdraws lower extremities to local stimuli, mild flexion of right upper to nailbed pressure Cerebellar: cannot assess (Allison Mccullough) Medications Current Medications Current Medications Medications (Trade) Dose Ordered Sig/Jerry Route PRN Reason Start Time Stop Time Status Last Admin Dose Admin Propofol 100 ml @ 0 mls/hr TITRATE IV 05/27/16 19:45 05/28/16 23:16 Sodium Chloride (NS 1000 ml Inj) 1,000 ml @ 150 mls/hr Q6H40M IV 05/27/16 21:00 06/03/16 16:20 IV Flush (NS Flush) 2 ml UNSCH PRN IV FLUSH FLUSH AFTER USING IV ACCESS 05/27/16 20:45 05/27/16 22:30 IV Flush (NS Flush) 2 ml BID IV FLUSH 05/27/16 21:00 06/03/16 20:14 Acetaminophen (Tylenol) 650 mg Q6H PRN PO PAIN 1-10 AND/OR FEVER >101F 05/27/16 20:45 06/03/16 23:32 Famotidine (Pepcid Inj) 20 mg Q12HR IV PUSH 05/27/16 21:00 06/04/16 10:41 Artificial Tears (Tears Naturale Opth Soln) 1 drop TID EACH EYE 05/28/16 09:00 06/04/16 13:01 Ondansetron HCl (Zofran Inj) 4 mg Q6H PRN IV NAUSEA OR VOMITING 05/27/16 20:45 Docusate Sodium (Colace Liq) 100 mg Q12H G-TUBE 05/27/16 20:45 06/04/16 10:35 Miscellaneous Information 1 Q361D XX 05/27/16 20:45 05/27/16 20:45 Chlorhexidine Gluconate (Chlorhexidine 2% Cloth) Taper DAILY@04 TOP 05/28/16 04:00 05/24/17 03:59 06/04/16 04:00 Chlorhexidine Gluconate 3 pack 3 pack UNSCH PRN TOP HYGIENIC CARE 05/27/16 20:45 Nicardipine HCl/ Sodium Chloride (Cardene Inj/NS 250 ml Inj) 260 ml @ 0 mls/hr TITRATE IV 05/27/16 21:00 06/04/16 05:40 Nimodipine (Nimotop) 60 mg Q4HR PO 05/28/16 00:00 06/04/16 13:01 Pravastatin Sodium 40 mg 40 mg HS PO 05/27/16 21:00 06/03/16 20:13 Levetriacetam 100 ml @ 400 mls/hr Q12HR IV 05/28/16 09:00 06/04/16 10:37 Potassium Chloride 100 ml @ 50 mls/hr Q2H PRN IV For Potassium 2.8 - 3.2 mEq/L 05/28/16 01:45 06/03/16 05:31 Potassium Chloride (KCl 20 Meq Premix Inj) 100 ml @ 50 mls/hr Q2H PRN IV For Potassium 2.8 - 3.2 mEq/L 05/28/16 01:45 Potassium Chloride 40 meq 40 meq UNSCH PRN PO/TUBE For Potassium 3.3 - 3.5 mEq/L 05/28/16 01:45 06/03/16 12:44 Potassium Chloride 100 ml @ 25 mls/hr UNSCH PRN IV For Potassium 3.3 - 3.5 mEq/L 05/28/16 01:45 05/30/16 18:33 Potassium Chloride 100 ml @ 50 mls/hr Q2H PRN IV For Potassium 3.3 - 3.5 mEq/L 05/28/16 01:45 06/02/16 08:34 Magnesium Sulfate/ Sodium Chloride (Magnesium Sulfate Inj/NS Inj) 100 ml @ 50 mls/hr UNSCH PRN IV For Magnesium 0.9 - 1.1 mg/dL 05/28/16 01:45 Magnesium Oxide 800 mg 800 mg UNSCH PRN PO For Magnesium 1.2 - 1.6 mg/dL 05/28/16 01:45 Magnesium Sulfate/ Sodium Chloride (Magnesium Sulfate Inj/NS Inj) 100 ml @ 50 mls/hr UNSCH PRN IV For Magnesium 1.2 - 1.6 mg/dL 05/28/16 01:45 Potassium Phosphate 2000 mg 2,000 mg Q4H PRN PO For Phosphorus < 2.5 mg/dL 05/28/16 01:45 Sodium Phosphate/ Sodium Chloride (Sodium Phosphate Inj/NS 250 ml Inj) 250 ml @ 42 mls/hr UNSCH PRN IV For Phosphorus < 2.5 mg/dL 05/28/16 01:45 05/28/16 06:34 Potassium Chloride (KCl 40 Meq/30 ml Liq) 40 meq UNSCH PRN PO/TUBE SEE LABEL COMMENTS 05/28/16 01:45 06/03/16 05:31 Potassium Phosphate 2000 mg 2,000 mg UNSCH PRN PO/TUBE SEE LABEL COMMENTS 05/28/16 01:45 Potassium Phosphate/Sodium Chloride (Potassium Phosphate Inj/NS 250 ml Inj) 260 ml @ 42 mls/hr UNSCH PRN IV SEE LABEL COMMENTS 05/28/16 01:45 Dextrose (D50w (Vial) Inj) 25 ml UNSCH PRN IV PUSH HYPOGLYCEMIA-SEE COMMENTS 05/29/16 07:30 Insulin Human Regular 1 1 Q6HR SQ 05/29/16 12:00 06/04/16 11:08 Norepinephrine Bitartrate/Sodium Chloride (Levophed Inj/NS 250 ml Inj) 262 ml @ 0 mls/hr TITRATE IV 05/30/16 09:45 Fosphenytoin Sodium (Cerebyx Inj) 100 mgpe Q12HR IV 06/02/16 09:00 06/04/16 10:41 (Allison Mccullough) Medical Decision Making MDM Remarks 66 y/o female with subarachnoid hemorrhage suspected intracranial aneurysm, placement of ventriculostomy drain, ICPs remains within normal range CTA Head x 2 negative for aneurysm, Cerebral angiography neg for aneurysm MRI Brain and C spine without mass lesions (Allison Mccullough) Plan Plan Remarks cont EVD draining serial neuro checks f/u cerebral angiography today (Allison Mccullough) Attending Statement Continue neuro checks in a serial fashion. follow-up CT and CTA, and there is no clear evidence of an aneurysm A follow-up TCD will be obtained. Follow-up angiography today Continue CSF drainage via ventriculostomy Respiratory. Continue mechanical ventilation in assist contyrol mode of mechanical ventilation, pulmonary toilette, nasotracheal suction, and breathing treatments with nebulizers. Hypertension As needed Cardene to maintain systolic blood pressure less than 150. PT and OT eval Nutrition. tube feedings Renal. Continue to monitor closely urine output, BUN and creatinine Endocrine. Continue to Monitor serial Acu checks and SSI for tight control ID continue to monitor for signs of infection Continue Protonix for stress ulcer prophylaxis Continue Julio hose and SCD's for DVT prophylaxis The exam, history, and the medical decision-making described in the above note were completed with the assistance of the mid-level provider. I reviewed and agree with the findings presented. I attest that I had a [id number] encounter with the patient on the same day, and personally performed and documented my assessment and findings in the medical record. (Arcenio Mtz MD) Allison Mccullough Jun 04, 2016 13:36 Arcenio Mtz MD Jun 04, 2016 17:33
[2016-06-04] MEDS: POTASSIUM CHLOR 40 MEQ PREMIX 100 ML IV PRN (13:40)
--- NOTE | 2016-06-04 14:54 | HHI.CCPN ---
Subjective Remarks/Hospital Course Hospital Course: 66 years old female was transferred to [facility] from [facility] in [place]. Patient and her was vacationing from [place]. They aware on the train while at around 2:00 patient started having severe headache and then vomited and then had a syncopal episode. Patient was transported to [facility] in [place]. On the way to the hospital, patient started having respiratory problem and patient was subsequently intubated. Patient has history of atrial fibrillation and hypertension and on Xarelto 20 mg daily, atorvastatin, HCTZ/ losartan, metoprolol. CT scan of the brain done at [facility] in [place] shows diffuse subarachnoid hemorrhage with intraventricular extension and early obstructive hydrocephalus developing. Dr. Mtz, neurosurgeon at [facility] was contacted and accepted transfer. 05/28: slight improvements, withdrawing to deep nailbed pressure. on cardene for hypertension. plan for angio today or tomorrow. 05/29: worsening neuro exam overnight. repeat head CT with effacement, slight compression of the brainstem. angiogram overnight without evidence of aneurysm or vasospasm. more hypotensive this morning on norepinephrine. flaccid x 4, no cough or gag. propofol turned off at 0600. 05/30: EEG with evidence of seizures. Keppra increased yesterday and Cerebryx loaded. this morning, on increasing vasopressor requirements. added phenylephrine on top of maximal levophed, vasopressin. echo with prelim hyperdynamic biventricular function. ICP stable. poor neurologic function. posturing in UEs. 05/31: vasopressors weaned overnight significantly, but remains on some support. repeat EEG improved with no evidence of ongoing ictal activity. ICP stable. this morning, no longer following commands in LEs, no longer posturing in upper extremities. discussed care with Dr. Mtz, will plan to go to CT/CTA brain to r /o vasospasm.06/01: CTA yesterday without evidence of vasospasm. TCDs negative today for vasospasm. still will intermittently follow commands in LEs, nothing in upper extremities. Na still very high, 160s. ICP well controlled. off vasopressors. 06/02: Na coming down slowly. TCDs pending for today. neuro exam stable. phenytoin level borderline high. Subjective: 06/03: Tmax 1.4. Currently 99.1. Tolerating tube feeds at goal. Positive BM. Neuro exam remains stable. 06/04: Remains sedated, orally intubated on mechanical ventilation. Ventriculostomy in place. Cardene drip at 1 mg/h Objective Vital Signs Date Time Temp Pulse Resp B/P Pulse Ox O2 Delivery O2 Flow Rate FiO2 06/04/16 12:00 55 06/04/16 11:01 96 06/04/16 08:00 98.8 110 24 150/78 Intake and Output 06/03/16 06/03/16 06/04/16 08:00 16:00 00:00 Intake Total 3368 ml 1789 ml 1699 ml Output Total 3926.0 ml 2182.0 ml 1505 ml Balance -558.0 ml -393.0 ml 194 ml Result Diagram: 06/04/1661906/04/16619 Imaging Last Impressions Transcranial Doppler Study Complete 06/03/16 0215 Signed Impressions: Service Date/Time: Friday, June 03, 2016 07:16 - CONCLUSION: There are no findings to indicate vasospasm. Lauro Lamb MD Chest X-Ray 06/02/16 0000 Signed Impressions: Service Date/Time: Thursday, June 02, 2016 09:40 - CONCLUSION: 1. New ezhmo-ms-ahxyoyrm size left pleural effusion with associated atelectasis and/ or consolidation. 2. Hazy opacity at the right base may represent atelectasis versus consolidation. Lauro Lamb MD Cervical Spine MRI 06/01/16 0000 Signed Impressions: Service Date/Time: Wednesday, June 01, 2016 12:14 - CONCLUSION: Large amount of blood in the subarachnoid space. I do not see a mass. Etiology for the hemorrhage is not apparent. Dillon Zaragoza MD FACR Brain MRI 06/01/16 0000 Signed Impressions: Service Date/Time: Wednesday, June 01, 2016 12:14 - CONCLUSION: 1. Intraventricular blood, negative for mass. Dillon Zaragoza MD FACR Head CTA 05/31/16 0000 Signed Impressions: Service Date/Time: May 10:44 - CONCLUSION: 1. No evidence of vasospasm Brandon Herrera MD Head CT 05/31/16 0000 Signed Impressions: Service Date/Time: May 10:44 - CONCLUSION: Extensive subarachnoid hemorrhage including significant hemorrhage in the foramen magnum similar to the 05/29/16 exam. The ventricles do appear to be larger today with significant intraventricular hemorrhage present. Ventriculostomy catheter in good position. David Spencer MD Cerebral Arteriogram 05/28/16 0000 Signed Impressions: Service Date/Time: Saturday, May 28, 2016 23:54 - CONCLUSION: 1. No evidence of aneurysm. 2. 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 3. The left vertebral artery could not be catheterized Brandon Herrera MD Objective Remarks GENERAL: 66 year old female, critically ill currently orotracheally intubated SKIN: Warm and dry. No rash HEAD:tatus post right frontal daquan hole ventriculostomy EYES: PERRL. No scleral icterus. No injection or drainage. NECK: Supple, trachea midline. No JVD or lymphadenopathy. CARDIOVASCULAR: RRR. S1, S2 no sore. Without murmur RESPIRATORY: Breath sounds equal bilaterally. No accessory muscle use. GASTROINTESTINAL: Abdomen soft, non-tender, nondistended. Positive bowel sounds appreciated MUSCULOSKELETAL: With trace lower extremity edema Neuro: DTs had no significant movement in uppers extremities, weakly following commands LEs. A/P Problem List: (1) Subarachnoid hemorrhage ICD Code: I60.9 Status: Acute (2) Atrial fibrillation ICD Code: I48.91 Status: Acute (3) Coagulopathy ICD Code: D68.9 Status: Acute (4) Respiratory failure ICD Code: J96.90 Status: Acute (5) Hypertension ICD Code: I10 Status: Acute Assessment and Plan Neuro/Psych: Spontaneous subarachnoid bleed Intracranial hypertension Status post right daquan hole ventriculostomy Malignant cerebral edema Seizures CT head revealed subarachnoid hemorrhage/brainstem right greater than left and intraventricular hemorrhage on the third ventricle/foramen of [place] and lateral ventricle MRI/A revealed no mass/source of bleeding EEG 3/revealed moderate disc. Supple neuropathy. No epileptiform activity q1h neuro checks Nimodipine 60 mg every 4 hours for 21 days Four-vessel angiogram 05/29 negative for aneurysm of vasospasm. No FMD - unable to access left vertebral artery off sedation, as long as ICPs are controlled --s/p 3% nacl. slowly normalizing Na, eventual goal Na 140 - 145. hold free water --Keppra and Cerebyx, decrease Cerebyx to 100mg iv q12h. recheck phenytoin level 06/05 (already ordered) --Dr. Mtz: neurosurgery -- CT/CTA 05/31: no evidence of vasospasm. -- daily TCDs, so far negative for vasospasm. -- will need repeat angio after 7 days to confirm (around 06/05). Respiratory: Acute Hypoxic and hypercarbic respiratory failure PRVC ventilation 14/450///50 Vent bundle -- As needed bronchodilator therapy Head of bed elevated Wean FiO2 for goal SPO2 greater than 92% Does not meet SBT criteria given mental status. --will likely need tracheostomy for mental status. now that her ICPs are controlled, could consider trach/peg early next week. Cardiovascular: Severe vasoplegia/Distributive Shock- resolving. History of hypertension Dyslipidemia History fibrillation/chronic Continue arterial line./Left axillary Off vasopressors. without evidence of vasospasm, as long as CPP is maintained, will relax bp goals to SBP 120 - 180. Cardene drip if needed Nimodipine 60 mg every 4 Home medications are losartan/Advicor thousand 100/12.5 daily and metoprolol 25 mg twice a day. This is currently been held. Resume when clinically indicated Patient's current Pravachol 40 mg by mouth daily/hospital substitution for atorvastatin 20 mg at night anemia Echocardiogram 05/31 revealed EF 65%. Moderate TR. POLO 54 mm Hg Renal: Parker for strict I's and O's -- Strict I/Os Avoid hypovolemia FEN/GI: Hypernatremia Acute protein calorie malnutrition- mild Hypokalemia Maintenance fluids normal saline. Avoid hypovolemia tube feeds, jevity 1.5, goal 50 cc an hour -Pepcid twice a day for GI prophylaxis - Colace/Senokot for bowel regimen ICU electrolyte protocol Daily BMP Heme/ID: Coagulopathy secondary to Xarelto anticoagulation use for atrial fibrillation- resolved. Leukocytosis Daily CBC Status post K Centra Does not meet transfusion triggers at this time --holding Eliquis given SAH. Endocrine: Hyperglycemia of critical illness -- SSI, every 6 hours, medium scale Prophylaxis: GI Prophylaxis pepcid iv q12h. DVT Prophylaxis -- SCDs Holding pharmacologic DVT prophylaxis given intracranial hemorrhage Lines: 05/27 right IJ triple lumen catheter 05/30 left axillary arterial line. Parker EVD Critical Care: The total critical care time was 35 minutes. Time to perform other separately billable procedures was not included in the critical care time. Ambrosio Guerrero MD Jun 04, 2016 14:54
[2016-06-04] MEDS: ACETAMINOPHEN 325 MG TAB PO PRN ×2 (15:35→19:51)
[2016-06-04] MEDS: PRAVASTATIN SOD 40 MG TAB PO SCH (19:51)
[2016-06-05] VITALS (15 sets, daily range): BP systolic 130–169; BP diastolic 55–78; PULSE 98–114; RESP 16–20; TEMP 99.5–101.1; O2SAT 92–100
[2016-06-05] MEDS: niMODipine 30 MG CAP PO SCH ×6 (00:03→20:15)
[2016-06-05] MEDS: INSULIN NovoLIN REGULAR SUPPLEMENTAL SCALE SQ SCH ×4 (00:04→17:18)
[2016-06-05] MEDS: SODIUM CHLOR 0.9% 1000 ML INJ 1,000 ML IV SCH ×2 (02:31→09:13)
[2016-06-05] MEDS: RESP: ALBUTEROL 2.5 MG/IPRATROPIUM 0.5 MG NEB (SCH) NEB ×4 (03:03→19:16)
[2016-06-05] MEDS: CHLORHEXIDINE GLUCONATE 2 % 1 PACK (2 CLOTHS) TOP SCH (04:00)
--- NOTE | 2016-06-05 05:47 | MG ---
cc: SHERRY SHAIKH M.D. Lab No: Date: 06/04/2016 Age: 66 Sex: F Race: REQUESTING PHYSICIAN DONALD Mccullough. An EEG was obtained on this 66-year-old patient being evaluated for possible seizures. MEDICATIONS 1. Keppra. 2. Insulin. The patient is intubated. This EEG shows a prominent delta activity bilaterally continually, possibly right more than left but actually there might be some attenuation on the left hemisphere. There are some intermixed theta rhythms. There is some rare alpha activity. There are low amplitude beta rhythms and also some artifact. Photic stimulation disclosed some background change briefly but subsequently the patient enters a "deeper sleep stage." Then there is some background change with deep tactile stimulation. INTERPRETATION Abnormal EEG because of marked slowing bilaterally, very questionably right more than left and without epileptiform features present. The background is mildly reactive. The findings suggest a moderate to severe diffuse disturbance of cerebral function or bihemispheric structural abnormalities. Sherry Shaikh MD OFC/SSB /7:58 PM /5:43 AM
[2016-06-05] MEDS: SODIUM CHLORIDE 0.9% FLUSH 5 ML FLUSH IV FLUSH SCH ×2 (08:24→20:16)
[2016-06-05] MEDS: ARTIFICIAL TEARS OPTH SOLN 15 ML BTL EACH EYE SCH ×3 (08:30→17:18)
[2016-06-05] MEDS: DOCUSATE SODIUM 100 MG/10 ML UDC G-TUBE SCH ×2 (08:31→20:15)
[2016-06-05] MEDS: FOSPHENYTOIN SODIUM 100 MG PE/2 ML VIAL IV SCH ×2 (08:32→20:15)
[2016-06-05] MEDS: levETIRAcetam 1000 MG INJ 100 ML IV SCH ×2 (08:36→20:16)
[2016-06-05] MEDS: FAMOTIDINE 20 MG/2 ML VIAL IV PUSH SCH ×2 (08:36→20:15)
[2016-06-05] MEDS: niCARdipine INJ 25 MG in SODIUM CHLOR 0.9% 250 ML INJ 250 ML IV SCH ×3 (08:37→16:34)
[2016-06-05] MEDS: POTASSIUM CHLOR 20 MEQ PREMIX 100 ML IV PRN (08:39)
[2016-06-05] MEDS ORDERED: EPINEPHrine HCL (1:10,000) 1 MG/10 ML SYRINGE ONE (10:22)
[2016-06-05] MEDS ORDERED: LIDOCAINE HCL 2% 100 MG/5 ML SYRINGE ONE (10:22)
[2016-06-05] MEDS ORDERED: ATROPINE SULFATE 1 MG/10 ML SYRINGE ONE (10:22)
--- NOTE | 2016-06-05 10:27 | RADRPT ---
EXAM DATE/TIME: 06/05/2016 08:08 [place] COMPARISON: US TRANSCRANIAL DOPPLER COMPLETE, June 04, 2016, 8:05. INDICATIONS : Subarachnoid hemorrhage. MEDICAL HISTORY : Hypertension. Hypercholesterolemia. Subarachnoid hemorrhage. Syncope. Cerebrovascular disease. A-Fi b. Hydrocephalus. Respiratory failure. Anticoagulant therapy. SURGICAL HISTORY : Right frontal [place] hole with ventriculostomy drain. ENCOUNTER: [facility] ACUITY: 1 week PAIN SCORE: Nonresponsive. LOCATION: Bilateral cranial RIGHT: LEFT: Current Exam: Jun 05, 2016 [place] Ratio: 1.1 1.0 [place] Ratio: 0.7 0.9 Previous Exam: Jun 04, 2016 [place] Ratio: 0.8 0.9 [place] Ratio: 0.6 0.5 FINDINGS: Examination performed at bedside. Real-time ultrasound with the assistance of color and spectral Dop pler was utilized to evaluate the intracerebral circulation. Time-averaged maximal velocities are ca lculated in cm/s. No evidence of change in velocities or ratios to indicate the presence of a spasm. CONCLUSION: No evidence of significant vasospasm. Riley Roman MD on June 05, 2016 at 10:15 Board Certified Radiologist. This report was verified electronically.
--- NOTE | 2016-06-05 10:33 | HHI.CCPN ---
Subjective Remarks/Hospital Course Hospital Course: 66 years old female was transferred to [facility] from [facility] in [place]. Patient and her was vacationing from [place]. They aware on the train while at around 2:00 patient started having severe headache and then vomited and then had a syncopal episode. Patient was transported to [facility] in [place]. On the way to the hospital, patient started having respiratory problem and patient was subsequently intubated. Patient has history of atrial fibrillation and hypertension and on Xarelto 20 mg daily, atorvastatin, HCTZ/ losartan, metoprolol. CT scan of the brain done at [facility] in [place] shows diffuse subarachnoid hemorrhage with intraventricular extension and early obstructive hydrocephalus developing. Dr. Mtz, neurosurgeon at [facility] was contacted and accepted transfer. 05/28: slight improvements, withdrawing to deep nailbed pressure. on cardene for hypertension. plan for angio today or tomorrow. 05/29: worsening neuro exam overnight. repeat head CT with effacement, slight compression of the brainstem. angiogram overnight without evidence of aneurysm or vasospasm. more hypotensive this morning on norepinephrine. flaccid x 4, no cough or gag. propofol turned off at 0600. 05/30: EEG with evidence of seizures. Keppra increased yesterday and Cerebryx loaded. this morning, on increasing vasopressor requirements. added phenylephrine on top of maximal levophed, vasopressin. echo with prelim hyperdynamic biventricular function. ICP stable. poor neurologic function. posturing in UEs. 05/31: vasopressors weaned overnight significantly, but remains on some support. repeat EEG improved with no evidence of ongoing ictal activity. ICP stable. this morning, no longer following commands in LEs, no longer posturing in upper extremities. discussed care with Dr. Mtz, will plan to go to CT/CTA brain to r /o vasospasm.06/01: CTA yesterday without evidence of vasospasm. TCDs negative today for vasospasm. still will intermittently follow commands in LEs, nothing in upper extremities. Na still very high, 160s. ICP well controlled. off vasopressors. 06/02: Na coming down slowly. TCDs pending for today. neuro exam stable. phenytoin level borderline high. Subjective: 06/03: Tmax 1.4. Currently 99.1. Tolerating tube feeds at goal. Positive BM. Neuro exam remains stable. 06/04: Remains sedated, orally intubated on mechanical ventilation. Ventriculostomy in place. Cardene drip at 1 mg/h 06/05: Remains sedated, orally intubated on mechanical ventilation. Ventriculostomy in place. Objective Vital Signs Date Time Temp Pulse Resp B/P Pulse Ox O2 Delivery O2 Flow Rate FiO2 06/05/16 08:00 55 06/05/16 08:00 100.2 111 17 169/78 100 Intake and Output 06/04/16 06/04/16 06/05/16 08:00 16:00 00:00 Intake Total 1440 ml 1985 ml 2225 ml Output Total 850 ml 1305 ml 735 ml Balance 590 ml 680 ml 1490 ml Result Diagram: 06/04/16 0620 06/05/16 0500 Imaging Last Impressions Transcranial Doppler Study Complete 06/03/16 0215 Signed Impressions: Service Date/Time: Friday, June 03, 2016 07:16 - CONCLUSION: There are no findings to indicate vasospasm. Lauro Lamb MD Chest X-Ray 06/02/16 0000 Signed Impressions: Service Date/Time: Thursday, June 02, 2016 09:40 - CONCLUSION: 1. New hthdr-fy-ubeyegpu size left pleural effusion with associated atelectasis and/ or consolidation. 2. Hazy opacity at the right base may represent atelectasis versus consolidation. Lauro Lamb MD Cervical Spine MRI 06/01/16 0000 Signed Impressions: Service Date/Time: Wednesday, June 01, 2016 12:14 - CONCLUSION: Large amount of blood in the subarachnoid space. I do not see a mass. Etiology for the hemorrhage is not apparent. Dillon Zaragoza MD FACR Brain MRI 06/01/16 0000 Signed Impressions: Service Date/Time: Wednesday, June 01, 2016 12:14 - CONCLUSION: 1. Intraventricular blood, negative for mass. Dillon Zaragoza MD FACR Head CTA 05/31/16 0000 Signed Impressions: Service Date/Time: May 10:44 - CONCLUSION: 1. No evidence of vasospasm Brandon Herrera MD Head CT 05/31/16 0000 Signed Impressions: Service Date/Time: May 10:44 - CONCLUSION: Extensive subarachnoid hemorrhage including significant hemorrhage in the foramen magnum similar to the 05/29/16 exam. The ventricles do appear to be larger today with significant intraventricular hemorrhage present. Ventriculostomy catheter in good position. David Spencer MD Cerebral Arteriogram 05/28/16 0000 Signed Impressions: Service Date/Time: Saturday, May 28, 2016 23:54 - CONCLUSION: 1. No evidence of aneurysm. 2. 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 3. The left vertebral artery could not be catheterized Brandon Herrera MD Objective Remarks GENERAL: 66 year old female, critically ill currently orotracheally intubated SKIN: Warm and dry. No rash HEAD:tatus post right frontal daquan hole ventriculostomy EYES: PERRL. No scleral icterus. No injection or drainage. NECK: Supple, trachea midline. No JVD or lymphadenopathy. CARDIOVASCULAR: RRR. S1, S2 no sore. Without murmur RESPIRATORY: Breath sounds equal bilaterally. No accessory muscle use. GASTROINTESTINAL: Abdomen soft, non-tender, nondistended. Positive bowel sounds appreciated MUSCULOSKELETAL: With trace lower extremity edema Neuro: DTs had no significant movement in uppers extremities, weakly following commands LEs. A/P Problem List: (1) Subarachnoid hemorrhage ICD Code: I60.9 Status: Acute (2) Atrial fibrillation ICD Code: I48.91 Status: Acute (3) Coagulopathy ICD Code: D68.9 Status: Acute (4) Respiratory failure ICD Code: J96.90 Status: Acute (5) Hypertension ICD Code: I10 Status: Acute Assessment and Plan Neuro/Psych: Spontaneous subarachnoid bleed Intracranial hypertension Status post right daquan hole ventriculostomy Malignant cerebral edema Seizures CT head revealed subarachnoid hemorrhage/brainstem right greater than left and intraventricular hemorrhage on the third ventricle/foramen of [place] and lateral ventricle MRI/A revealed no mass/source of bleeding EEG 3/revealed moderate disc. Supple neuropathy. No epileptiform activity q1h neuro checks Nimodipine 60 mg every 4 hours for 21 days Four-vessel angiogram 05/29 negative for aneurysm of vasospasm. No FMD - unable to access left vertebral artery off sedation, as long as ICPs are controlled --s/p 3% nacl. slowly normalizing Na, eventual goal Na 140 - 145. hold free water --Keppra and Cerebyx, decrease Cerebyx to 100mg iv q12h. recheck phenytoin level 06/05 (already ordered) --Dr. Mtz: neurosurgery -- CT/CTA 05/31: no evidence of vasospasm. -- daily TCDs, so far negative for vasospasm. -- Awaiting repeat angio after 7 days to confirm (06/05). Respiratory: Acute Hypoxic and hypercarbic respiratory failure PRVC ventilation 14/450///50 Vent bundle -- As needed bronchodilator therapy Head of bed elevated Wean FiO2 for goal SPO2 greater than 92% Does not meet SBT criteria given mental status. --will likely need tracheostomy for mental status. now that her ICPs are controlled, could consider trach/peg. Cardiovascular: Severe vasoplegia/Distributive Shock- resolving. History of hypertension Dyslipidemia History fibrillation/chronic Continue arterial line./Left axillary Off vasopressors. without evidence of vasospasm, as long as CPP is maintained, will relax bp goals to SBP 120 - 180. Cardene drip if needed Nimodipine 60 mg every 4 Home medications are losartan/Advicor thousand 100/12.5 daily and metoprolol 25 mg twice a day. This is currently been held. Resume when clinically indicated Patient's current Pravachol 40 mg by mouth daily/hospital substitution for atorvastatin 20 mg at night anemia Echocardiogram 05/31 revealed EF 65%. Moderate TR. POLO 54 mm Hg Renal: Parker for strict I's and O's -- Strict I/Os Avoid hypovolemia FEN/GI: Hypernatremia Acute protein calorie malnutrition- mild Hypokalemia Maintenance fluids normal saline. Avoid hypovolemia tube feeds, jevity 1.5, goal 50 cc an hour -Pepcid twice a day for GI prophylaxis - Colace/Senokot for bowel regimen ICU electrolyte protocol Daily BMP Heme/ID: Coagulopathy secondary to Xarelto anticoagulation use for atrial fibrillation- resolved. Leukocytosis Daily CBC Status post K Centra Does not meet transfusion triggers at this time --holding Eliquis given SAH. Endocrine: Hyperglycemia of critical illness -- SSI, every 6 hours, medium scale Prophylaxis: GI Prophylaxis pepcid iv q12h. DVT Prophylaxis -- SCDs Holding pharmacologic DVT prophylaxis given intracranial hemorrhage Lines: 05/27 right IJ triple lumen catheter 05/30 left axillary arterial line. Parker EVD Critical Care: The total critical care time was 35 minutes. Time to perform other separately billable procedures was not included in the critical care time. Ambrosio Guerrero MD Jun 05, 2016 10:33
[2016-06-05] MEDS ORDERED: fentaNYL CITRATE 250 MCG/5 ML AMP ONE (11:29)
[2016-06-05] MEDS ORDERED: MIDAZOLAM HCL 5 MG/5 ML VIAL ONE (11:29)
[2016-06-05] MEDS ORDERED: IODIXANOL 320 MG/ML 50 ML VIAL (for RAD SPEC) I-ARTERIAL ONE (12:51)
[2016-06-05] MEDS: ACETAMINOPHEN 325 MG TAB PO PRN (16:31)
--- NOTE | 2016-06-05 17:07 | HHI.NSPN ---
(Allison Mccullough) Note Status Status: Progress Note (Allison Mccullough) Status: Progress Note (Arcenio Mtz MD) Interval History Interval History This is a 66 years old female was transferred to [facility] from [facility] for a subarachnoid hemorrhage. The patient and the was vacationing from [place]. They were on the train. Patient's states that around 2:00 this afternoon she suddenly developed severe headache and then vomited, and then had a syncopal episode. The train stopped. EMS was called. EMS personnel state that patient had altered status was able to follow commands and beginning without focal neurological deficit. No seizure activity. No tongue bitting. No tonic clonic movements. no incontinence of stool or urine. She was transported to [facility] in [place]. On the way to the hospital, she developed respiratory problem and patient was subsequently endotracheally intubated. She has history of atrial fibrillation and hypertension and was anticoagulated with Xarelto 20 mg daily. In addition she takes atorvastatin, HCTZ/ losartan, metoprolol. CT scan of the brain done at [facility] in [place] shows extensive subarachnoid and intraventricular hemorrhage with early obstructive hydrocephalus developing. She was placed given propofol and Cardene drip. Cardene drip and propofol was stopped secondary to hypotension on the way to the ED. Neurosurgical consultation was requested 05/28: intubated and sedated, s/p placement of ventriculostomy drain. CTA Brain neg for aneurysm, for cerebral angiography today, 05/29: seen this am during am round, withdrawing in the lower extremities, did not open eyes or follow commands for me, was reported to have followed with nursing. Cerebral angiography yesterday was neg for aneurysm. Then sergei Mario , patient having seizures, and posturing. ICPs has been 8-10, nursing reports EVD draining, CSF blood tinged. Transcranial doppler early this am negative for vasospasm 3/1: extends in uppers, withdraws in LEs 3/2: minimal withdrawals in the lower extremities, and extension. f/u CT Brain shows increased ventriculomegaly. CTA Head unremarkable for intracranial aneurysm. f/u EEG reports severe encephalopathy. ICPs at highest 8 overnight. 06/01: this morning slightly wiggled toes to command. ICPs below 5, EVD draining blood tinged CSF. 06/04: slightly opening eyes, EVD draining dark red CSF at 10 cm H20, ICPs at highest 8 overnight. 06/05: ICPs stable overnight, opening eyes. No reports of seizure like activities overnight. EVD continues to drain well. (Allison Mccullough) Labs, Micro, & Vital Signs Results Date Time Temp Pulse Resp B/P Pulse Ox O2 Delivery O2 Flow Rate FiO2 06/05/16 15:33 95 50 06/05/16 12:40 100 100 06/05/16 11:00 100 100 06/05/16 08:00 55 06/05/16 08:00 100.2 111 17 169/78 100 06/05/16 07:44 98 50 06/05/16 06:00 98 06/05/16 04:00 104 06/05/16 04:00 55 06/05/16 04:00 100.4 106 20 144/69 06/05/16 03:00 100 50 06/05/16 00:30 98 55 06/05/16 00:00 55 06/05/16 00:00 100.2 105 19 133/67 97 06/05/16 00:00 106 06/04/16 22:00 107 06/04/16 20:20 100 55 06/04/16 20:00 55 06/04/16 20:00 105 06/04/16 20:00 100.2 105 19 133/67 97 06/05/16 07:00 Intake Total 5397 ml Output Total 2815 ml Balance 2582 ml Constitutional Vital Signs Date Time Temp Pulse Resp B/P Pulse Ox O2 Delivery O2 Flow Rate FiO2 06/05/16 15:33 95 50 06/05/16 12:40 100 100 06/05/16 11:00 100 100 06/05/16 08:00 55 06/05/16 08:00 100.2 111 17 169/78 100 06/05/16 07:44 98 50 06/05/16 06:00 98 06/05/16 04:00 104 06/05/16 04:00 55 06/05/16 04:00 100.4 106 20 144/69 06/05/16 03:00 100 50 06/05/16 00:30 98 55 06/05/16 00:00 55 06/05/16 00:00 100.2 105 19 133/67 97 06/05/16 00:00 106 06/04/16 22:00 107 06/04/16 20:20 100 55 06/04/16 20:00 55 06/04/16 20:00 105 06/04/16 20:00 100.2 105 19 133/67 97 06/05/16 07:00 Intake Total 5397 ml Output Total 2815 ml Balance 2582 ml (Allison Mccullough) Review of Systems/Exam Exam Ms. Michaels is intubated. Moderate eye opening to sternal rub, did not follow commands. Right ventriculostomy drain at 10 cm H20, draining well, dark red CSF, ICPs < 5 Cranial Nerves: Pupils 4 mm b/l reactive to 3 mm. There is response to visual threat. Sensorimotor: withdraws lower extremities to local stimuli Cerebellar: cannot assess Corneal reflexes present bilaterally. (Allison Mccullough) Exam Ms. Michaels is intubated, ventilated. eye opening to sternal rub, no commands. Right ventriculostomy drain at 10 cm H20, draining well, dark red CSF, ICPs < 5 Cranial Nerves: Pupils 4 mm b/l reactive to 3 mm. There is response to visual threat. bilat corneals Sensorimotor: withdraws lower extremities to local stimuli Cerebellar: cannot assess due to her condition (Arcenio Mtz MD) Medical Decision Making MDM Remarks 66 y/o female with subarachnoid hemorrhage suspected intracranial aneurysm, placement of ventriculostomy drain, ICPs remains within normal range CTA Head x 2 negative for aneurysm, Cerebral angiography neg for aneurysm MRI Brain and C spine without mass lesions (Allison Mccullough) Plan Plan Remarks cont EVD draining at 10 cm H20, serial neuro checks continue follow up neuro exam Awaiting follow up cerebral angiogram (Allison Mccullough) Attending Statement Continue neuro checks in a serial fashion. follow-up CT and CTA, and there is no clear evidence of an aneurysm follow-up TCD . Follow-up angiography could not be dne yesterday, it will be done today Continue CSF drainage via ventriculostomy Respiratory. Continue mechanical ventilation in assist contyrol mode of mechanical ventilation, pulmonary toilette, nasotracheal suction, and breathing treatments with nebulizers. Hypertension As needed Cardene to maintain systolic blood pressure less than 150. PT and OT eval Nutrition. tube feedings Renal. Continue to monitor closely urine output, BUN and creatinine Endocrine. Continue to Monitor serial Acu checks and SSI for tight control ID continue to monitor for signs of infection Continue Protonix for stress ulcer prophylaxis Continue Julio hose and SCD's for DVT prophylaxis The exam, history, and the medical decision-making described in the above note were completed with the assistance of the mid-level provider. I reviewed and agree with the findings presented. I attest that I had a [id number] encounter with the patient on the same day, and personally performed and documented my assessment and findings in the medical record. (Arcenio Mtz MD) (Arcenio Mtz MD) Allison Mccullough Jun 05, 2016 17:07 Arcenio Mtz MD Jun 08, 2016 15:40
[2016-06-05] MEDS: PRAVASTATIN SOD 40 MG TAB PO SCH (20:16)
[2016-06-06] VITALS (18 sets, daily range): BP systolic 127–171; BP diastolic 57–73; PULSE 96–119; RESP 16–23; TEMP 98.6–100.8; O2SAT 92–100
[2016-06-06] MEDS: niMODipine 30 MG CAP PO SCH ×7 (00:21→23:12)
[2016-06-06] MEDS: INSULIN NovoLIN REGULAR SUPPLEMENTAL SCALE SQ SCH ×5 (00:22→23:12)
[2016-06-06] MEDS: RESP: ALBUTEROL 2.5 MG/IPRATROPIUM 0.5 MG NEB (SCH) NEB ×4 (01:09→19:27)
[2016-06-06] MEDS: CHLORHEXIDINE GLUCONATE 2 % 1 PACK (2 CLOTHS) TOP SCH (04:00)
[2016-06-06] MEDS: ACETAMINOPHEN 325 MG TAB PO PRN ×2 (05:48→16:00)
[2016-06-06] MEDS: levETIRAcetam 1000 MG INJ 100 ML IV SCH ×2 (09:28→20:29)
[2016-06-06] MEDS: DOCUSATE SODIUM 100 MG/10 ML UDC G-TUBE SCH ×2 (09:28→20:27)
[2016-06-06] MEDS: ARTIFICIAL TEARS OPTH SOLN 15 ML BTL EACH EYE SCH ×3 (09:29→18:00)
[2016-06-06] MEDS: FAMOTIDINE 20 MG/2 ML VIAL IV PUSH SCH ×2 (09:29→20:27)
[2016-06-06] MEDS: FOSPHENYTOIN SODIUM 100 MG PE/2 ML VIAL IV SCH ×2 (09:29→20:28)
[2016-06-06] MEDS: SODIUM CHLOR 0.9% 1000 ML INJ 1,000 ML IV SCH ×2 (09:30→11:58)
[2016-06-06] MEDS: SODIUM CHLORIDE 0.9% FLUSH 5 ML FLUSH IV FLUSH SCH ×2 (09:31→20:30)
--- NOTE | 2016-06-06 10:03 | RADRPT ---
EXAM DATE/TIME: 06/06/2016 08:05 [facility] COMPARISON: US TRANSCRANIAL DOPPLER COMPLETE, June 05, 2016, 8:08. INDICATIONS : Subarachnoid hematoma. MEDICAL HISTORY : Cerebrovascular disease. Hypercholesterolemia. Hypertension. Subarachnoid hemorrhage. Syncope. Cerebrovascular disease. A-Fib. Hydrocephalus. Respiratory failure. SURGICAL HISTORY : Right frontal [place] hole with ventriculostomy drain. ENCOUNTER: [facility] ACUITY: 1 week PAIN SCORE: Nonresponsive. LOCATION: Bilateral cranial RIGHT: LEFT: Current Exam: Jun 06, 2016 [place] Ratio: 2.9 2.5 [place] Ratio: 2.7 1.9 Previous Exam: Jun 05, 2016 [place] Ratio: 1.1 1.0 [place] Ratio: 0.7 0.9 FINDINGS: Examination performed at bedside. Real-time ultrasound with the assistance of color and spectral Dop pler was utilized to evaluate the intracerebral circulation. Time-averaged maximal velocities are ca lculated in cm/s. The right anterior cerebral artery values demonstrate mildly increased mean flow velocity but Merino r atio is within normal limits. Middle cerebral artery and posterior dural artery velocities and ratios are within normal limits. CONCLUSION: 1. Mildly elevated mean flow velocity within the anterior cerebral arteries. However, the [place]ir[place] ratio is within normal limits suggesting the change may be due to physiologic factors. 2. Remainder of the examination demonstrates normal flow velocities and ratios without findings to in dicate vasospasm. Lauro Lamb MD on June 06, 2016 at 9:56 Board Certified Radiologist. This report was verified electronically.
--- NOTE | 2016-06-06 14:09 | RADRPT ---
EXAM DATE/TIME: 06/05/2016 00:00 [facility] COMPARISON: No previous studies available for comparison. INDICATIONS : Patient in need of diagnostic cerebral angiogram with arch for further evaluation. MEDICAL HISTORY : Atrial Fibrillation on Xarelto High Cholesterol Hypertension SURGICAL HISTORY : Unobtainable ENCOUNTER: Subsequent ACUITY: 1 week PAIN SCORE: Nonresponsive. LOCATION: N/A FLUORO TIME: 14.0 minutes IMAGE SERIES: 13 ACCESS SITE: Right Femoral artery CONTRAST: 172 cc Visipaque (iodixanol) PROCEDURE : 1. Ultrasound-guided puncture of the access site. 2. Conscious sedation with continuous EKG and Oximetry monitoring. 3. Angiography of the right vertebral artery 4. Angiography of the right internal carotid artery 5. Angiography of the left internal carotid 6. Angiography of the thoracic arch 7. Angiography of the left subclavian artery The risks, benefits and alternatives to the procedure were explained and verbal and written consent w as obtained. The site was prepped in sterile fashion. Full sterile technique was used, including ca p, mask, sterile gloves and gown and a large sterile sheet. Hand hygiene and 2% chlorhexidine and/or betadine/alcohol prep was utilized per protocol for cutaneous antisepsis. The skin and subcutaneous tissues were infiltrated with local anesthetic solution. With ultrasound and fluoroscopic guidance t he selected artery was punctured and a vascular sheath was placed A pigtail catheter was placed in the aortic root and oblique digital angiography was performed of th e arch. This was exchanged for a JB2 catheter which was placed in the right vertebral artery where AP lateral and oblique runs were obtained. The catheter was next placed in the right internal carotid a rtery with AP, lateral and rotating digital subtraction angiography performed. The catheter was next placed in the left internal carotid artery where AP, lateral and rotating digital intervention perfor med. Finally the catheter was placed in the left subclavian artery to identify the origin of the left vertebral artery. A direct origin of the left vertebral artery could not be identified from the arch. No proximal steno sis is seen. A left vertebral artery was identified arising from the left subclavian artery. No aneur ysm or vascular malformation is seen. The appearance is similar to the prior cerebral angiogram. Fibr omuscular dysplasia is identified involving the cervical internal carotid arteries bilaterally. The puncture site was closed with manual pressure and hemostasis was obtained. The patient tolerated the procedure well and there were no complications. Conscious sedation was performed with the prescribed dosages and duration as above in the presence of an independent trained radiology nurse to assist in the monitoring of the patient. EKG and oximetry remained stable throughout the procedure. CONCLUSION: 1. No evidence of aneurysm 2. 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 This report was verified electronically.
--- NOTE | 2016-06-06 14:53 | HHI.CCPN ---
Subjective Remarks/Hospital Course Hospital Course: 66 years old female was transferred to [facility] from [facility] in [place]. Patient and her was vacationing from [place]. They aware on the train while at around 2:00 patient started having severe headache and then vomited and then had a syncopal episode. Patient was transported to [facility] in [place]. On the way to the hospital, patient started having respiratory problem and patient was subsequently intubated. Patient has history of atrial fibrillation and hypertension and on Xarelto 20 mg daily, atorvastatin, HCTZ/ losartan, metoprolol. CT scan of the brain done at [facility] in [place] shows diffuse subarachnoid hemorrhage with intraventricular extension and early obstructive hydrocephalus developing. Dr. Mtz, neurosurgeon at [place] was contacted and accepted transfer. 05/28: slight improvements, withdrawing to deep nailbed pressure. on cardene for hypertension. plan for angio today or tomorrow. 05/29: worsening neuro exam overnight. repeat head CT with effacement, slight compression of the brainstem. angiogram overnight without evidence of aneurysm or vasospasm. more hypotensive this morning on norepinephrine. flaccid x 4, no cough or gag. propofol turned off at 0600. 05/30: EEG with evidence of seizures. Keppra increased yesterday and Cerebryx loaded. this morning, on increasing vasopressor requirements. added phenylephrine on top of maximal levophed, vasopressin. echo with prelim hyperdynamic biventricular function. ICP stable. poor neurologic function. posturing in UEs. 05/31: vasopressors weaned overnight significantly, but remains on some support. repeat EEG improved with no evidence of ongoing ictal activity. ICP stable. this morning, no longer following commands in LEs, no longer posturing in upper extremities. discussed care with Dr. Mtz, will plan to go to CT/CTA brain to r /o vasospasm.06/01: CTA yesterday without evidence of vasospasm. TCDs negative today for vasospasm. still will intermittently follow commands in LEs, nothing in upper extremities. Na still very high, 160s. ICP well controlled. off vasopressors. 06/02: Na coming down slowly. TCDs pending for today. neuro exam stable. phenytoin level borderline high. 06/03: Tmax 100.4. Currently 99.1. Tolerating tube feeds at goal. Positive BM. Neuro exam remains stable. 3/6: Remains sedated, orally intubated on mechanical ventilation. Ventriculostomy in place. Cardene drip at 1 mg/h 06/05: Remains sedated, orally intubated on mechanical ventilation. Ventriculostomy in place. Subjective: 3/8: AM laboratories currently pending. Afebrile. Noted cerebral angiogram without signs of vasospasm. 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 Dr. Mtz recommends per contains tracheostomy per RN. Tolerating tube feeding. Objective Vital Signs Date Time Temp Pulse Resp B/P Pulse Ox O2 Delivery O2 Flow Rate FiO2 06/06/16 12:05 100 50 06/06/16 12:00 106 06/06/16 12:00 98.6 19 161/69 Intake and Output 06/05/16 06/05/16 06/06/16 08:00 16:00 00:00 Intake Total 1187 ml 1060 ml 1751 ml Output Total 775 ml 1080 ml 1025 ml Balance 412 ml -20 ml 726 ml Result Diagram: 06/04/16 0620 06/05/16 0500 Imaging Last Impressions Transcranial Doppler Study Complete 06/06/16 0215 Signed Impressions: Service Date/Time: Monday, June 06, 2016 08:05 - CONCLUSION: 1. Mildly elevated mean flow velocity within the anterior cerebral arteries. However, the Merino ratio is within normal limits suggesting the change may be due to physiologic factors. 2. Remainder of the examination demonstrates normal flow velocities and ratios without findings to indicate vasospasm. Lauro Lamb MD Cerebral Arteriogram 06/05/16 0000 Signed Impressions: Service Date/Time: Sunday, June 05, 2016 00:00 - CONCLUSION: 1. No evidence of aneurysm 2. 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 Stable bibasilar airspace disease, left greater than right with probable associated left-sided effusion. 2. Stable position of life support tubes. Immanuel Nix MD Cervical Spine MRI 06/01/16 0000 Signed Impressions: Service Date/Time: Wednesday, June 01, 2016 12:14 - CONCLUSION: Large amount of blood in the subarachnoid space. I do not see a mass. Etiology for the hemorrhage is not apparent. Dillon Zaragoza MD FACR Brain MRI 06/01/16 0000 Signed Impressions: Service Date/Time: Wednesday, June 01, 2016 12:14 - CONCLUSION: 1. Intraventricular blood, negative for mass. Dillon Zaragoza MD FACR Head CTA 05/31/16 0000 Signed Impressions: Service Date/Time: May 10:44 - CONCLUSION: 1. No evidence of vasospasm Brandon Herrera MD Head CT 05/31/16 0000 Signed Impressions: Service Date/Time: May 10:44 - CONCLUSION: Extensive subarachnoid hemorrhage including significant hemorrhage in the foramen magnum similar to the 05/29/16 exam. The ventricles do appear to be larger today with significant intraventricular hemorrhage present. Ventriculostomy catheter in good position. David Spencer MD Objective Remarks GENERAL: 66 year old female, critically ill currently orotracheally intubated SKIN: Warm and dry. No rash HEAD:tatus post right frontal daquan hole ventriculostomy EYES: PERRL. Around 5 mm bilaterally. Left sometimes 4 cm/last than right. No scleral icterus. No injection or drainage. NECK: Supple, trachea midline. No JVD or lymphadenopathy. CARDIOVASCULAR: RRR. S1, S2 no sore. Without murmur RESPIRATORY: Breath sounds equal bilaterally. No accessory muscle use. GASTROINTESTINAL: Abdomen soft, non-tender, nondistended. Positive bowel sounds appreciated MUSCULOSKELETAL: With trace lower extremity edema Neuro: Currently no significant movement in uppers extremities, weakly following commands LEs. A/P Problem List: (1) Subarachnoid hemorrhage ICD Code: I60.9 Status: Acute (2) Atrial fibrillation ICD Code: I48.91 Status: Acute (3) Coagulopathy ICD Code: D68.9 Status: Acute (4) Respiratory failure ICD Code: J96.90 Status: Acute (5) Hypertension ICD Code: I10 Status: Acute Assessment and Plan Neuro/Psych: Spontaneous subarachnoid bleed Intracranial hypertension Status post right daqu[place] hole ventriculostomy Malignant cerebral edema Seizures CT head revealed subarachnoid hemorrhage/brainstem right greater than left and intraventricular hemorrhage on the third ventricle/foramen of [place] and lateral ventricle MRI/A revealed no mass/source of bleeding EEG 3/revealed moderate disc. Supple neuropathy. No epileptiform activity q1h neuro checks Nimodipine 60 mg every 4 hours for 21 days Four-vessel angiogram 05/29 negative for aneurysm of vasospasm. No FMD - unable to access left vertebral artery off sedation, as long as ICPs are controlled --s/p 3% nacl. slowly normalizing Na, eventual goal Na 140 - 145. hold free water --Keppra 1000 twice a day and Dilantin 100mg iv q12h. recheck phenytoin level 06/05 was 7.8 --Dr. Mtz: neurosurgery -- CT/CTA 05/31: no evidence of vasospasm. -- daily TCDs, so far negative for vasospasm. --Negative cerebral angio to confirm 06/06. Respiratory: Acute Hypoxic and hypercarbic respiratory failure PRVC ventilation 14/04/05/39 Vent bundle -- As needed bronchodilator therapy Head of bed elevated Wean FiO2 for goal SPO2 greater than 92% Does not meet SBT criteria given mental status. --Written for tracheostomy. Will need PEG tube afterwards Cardiovascular: Severe vasoplegia/Distributive Shock- resolving. History of hypertension Dyslipidemia History fibrillation/chronic Off vasopressors. without evidence of vasospasm, as long as CPP is maintained, will relax bp goals to SBP 120 - 180. Cardene drip if needed Nimodipine 60 mg every 4 Home medications are losartan/Advicor thousand 100/12.5 daily and metoprolol 25 mg twice a day. This is currently been held. Resume when clinically indicated Patient's current Pravachol 40 mg by mouth daily/hospital substitution for atorvastatin 20 mg at night anemia Echocardiogram 05/31 revealed EF 65%. Moderate TR. POLO 54 mm Hg Renal: Parker for strict I's and O's -- Strict I/Os Avoid hypovolemia FEN/GI: Hypernatremia Acute protein calorie malnutrition- mild Hypokalemia Maintenance fluids normal saline. Avoid hypovolemia tube feeds, jevity 1.5, goal 50 cc an hour -Pepcid twice a day for GI prophylaxis - Colace/Senokot for bowel regimen ICU electrolyte protocol Daily BMP Heme/ID: Coagulopathy secondary to Xarelto anticoagulation use for atrial fibrillation- resolved. Leukocytosis Daily CBC Status post K Centra Does not meet transfusion triggers at this time --holding Eliquis given SAH. Endocrine: Hyperglycemia of critical illness -- SSI, every 6 hours, medium scale Prophylaxis: GI Prophylaxis pepcid iv q12h. DVT Prophylaxis -- SCDs Holding pharmacologic DVT prophylaxis given intracranial hemorrhage Lines: 05/27 right IJ triple lumen catheter Parker EVD Critical Care: The total critical care time was 35 minutes. Time to perform other separately billable procedures was not included in the critical care time. Edd Crow MD Jun 06, 2016 14:53
[2016-06-06 16:02] LABS: AUTOMATED NEUTROPHIL # 8.5 TH/MM3 (1.8-7.7); BASOPHIL % 0.4 % (0.0-2.0); EOSINOPHIL # 0.1 TH/MM3 (0-0.4); EOSINOPHIL % 0.6 % (0.0-4.0); HEMATOCRIT 28.2 % (35.0-46.0); HEMO FLAGS DIFF FINAL; LYMPH % 9.5 % (9.0-44.0); MEAN CELL VOLUME 90.5 FL (80.0-100.0); MEAN CORPUSCULAR HEMOGLOBIN 31.3 PG (27.0-34.0); MEAN CORPUSCULAR HGB CONC 34.6 % (32.0-36.0); MONO % 5.2 % (0.0-8.0); NEUT % 84.3 % (16.0-70.0); PLATELET COUNT 199 TH/MM3 (150-450); RED BLOOD COUNT 3.11 MIL/MM3 (4.00-5.30); RED CELL DISTRIBUTION WIDTH 13.5 % (11.6-17.2); WHITE BLOOD COUNT 10.1 TH/MM3 (4.0-11.0)
[2016-06-06] MEDS: POTASSIUM CHLOR 20 MEQ PREMIX 100 ML IV PRN ×2 (16:30→19:03)
[2016-06-06 16:42] LABS: ALKALINE PHOSPHATASE 173 U/L (45-117); ALT (GPT) 183 U/L (10-53); ANION GAP 9 MEQ/L (5-15); AST (GOT) 133 U/L (15-37); BICARBONATE 26.8 MEQ/L (21.0-32.0); BLOOD UREA NITROGEN 11 MG/DL (7-18); CHLORIDE 103 MEQ/L (98-107); CREATINE KINASE 109 U/L (26-192); GLOMERULAR FILTRATION RATE 118 ML/MIN (>89); MAGNESIUM 1.9 MG/DL (1.5-2.5); POTASSIUM 3.5 MEQ/L (3.5-5.1); SODIUM (NA) 139 MEQ/L (136-145); TOTAL BILIRUBIN ADULT 0.3 MG/DL (0.2-1.0)
--- NOTE | 2016-06-06 17:23 | HHI.NSPN ---
(Allison Mccullough) Note Status Status: Progress Note (Allison Mccullough) Interval History Interval History This is a 66 years old female was transferred to [facility] from [facility] for a subarachnoid hemorrhage. The patient and the was vacationing from [place]. They were on the train. Patient's states that around 2:00 this afternoon she suddenly developed severe headache and then vomited, and then had a syncopal episode. The train stopped. EMS was called. EMS personnel state that patient had altered status was able to follow commands and beginning without focal neurological deficit. No seizure activity. No tongue bitting. No tonic clonic movements. no incontinence of stool or urine. She was transported to [facility] in [place]. On the way to the hospital, she developed respiratory problem and patient was subsequently endotracheally intubated. She has history of atrial fibrillation and hypertension and was anticoagulated with Xarelto 20 mg daily. In addition she takes atorvastatin, HCTZ/ losartan, metoprolol. CT scan of the brain done at [facility] in [place] shows extensive subarachnoid and intraventricular hemorrhage with early obstructive hydrocephalus developing. She was placed given propofol and Cardene drip. Cardene drip and propofol was stopped secondary to hypotension on the way to the ED. Neurosurgical consultation was requested 05/28: intubated and sedated, s/p placement of ventriculostomy drain. CTA Brain neg for aneurysm, for cerebral angiography today, 05/29: seen this am during am round, withdrawing in the lower extremities, did not open eyes or follow commands for me, was reported to have followed with nursing. Cerebral angiography yesterday was neg for aneurysm. Then sergei Mario , patient having seizures, and posturing. ICPs has been 8-10, nursing reports EVD draining, CSF blood tinged. Transcranial doppler early this am negative for vasospasm 3/1: extends in uppers, withdraws in LEs 3/2: minimal withdrawals in the lower extremities, and extension. f/u CT Brain shows increased ventriculomegaly. CTA Head unremarkable for intracranial aneurysm. f/u EEG reports severe encephalopathy. ICPs at highest 8 overnight. 06/01: this morning slightly wiggled toes to command. ICPs below 5, EVD draining blood tinged CSF. 06/04: slightly opening eyes, EVD draining dark red CSF at 10 cm H20, ICPs at highest 8 overnight. 06/05: ICPs stable overnight, opening eyes. No reports of seizure like activities overnight. EVD continues to drain well. 06/06: cerebral angio completed yesterday, otherwise no neuro changes overnight. EVD draining, with stable ICPs. (Allison Mccullough) Labs, Micro, & Vital Signs Results Date Time Temp Pulse Resp B/P Pulse Ox O2 Delivery O2 Flow Rate FiO2 06/06/16 16:00 100.8 119 22 171/57 98 06/06/16 16:00 50 06/06/16 16:00 119 06/06/16 15:04 99 50 06/06/16 14:00 112 06/06/16 12:05 100 50 06/06/16 12:00 55 06/06/16 12:00 106 06/06/16 12:00 98.6 106 19 161/69 98 06/06/16 10:00 101 06/06/16 08:00 101 06/06/16 08:00 55 06/06/16 08:00 98.6 101 18 163/73 99 06/06/16 07:45 100 50 06/06/16 06:00 96 06/06/16 04:00 55 06/06/16 04:00 106 06/06/16 04:00 100.6 106 17 127/58 99 06/06/16 03:50 100 60 06/06/16 02:00 98 06/06/16 01:09 98 60 06/06/16 00:00 55 06/06/16 00:00 99.1 102 16 153/59 98 06/06/16 00:00 102 06/05/16 22:00 109 06/05/16 20:00 99.5 114 19 155/63 95 06/05/16 20:00 114 06/05/16 20:00 55 06/05/16 19:16 92 60 06/06/16 07:00 Intake Total 3782 ml Output Total 2935 ml Balance 847 ml Constitutional Vital Signs Date Time Temp Pulse Resp B/P Pulse Ox O2 Delivery O2 Flow Rate FiO2 06/06/16 16:00 100.8 119 22 171/57 98 06/06/16 16:00 50 06/06/16 16:00 119 06/06/16 15:04 99 50 06/06/16 14:00 112 06/06/16 12:05 100 50 06/06/16 12:00 55 06/06/16 12:00 106 06/06/16 12:00 98.6 106 19 161/69 98 06/06/16 10:00 101 06/06/16 08:00 101 06/06/16 08:00 55 06/06/16 08:00 98.6 101 18 163/73 99 06/06/16 07:45 100 50 06/06/16 06:00 96 06/06/16 04:00 55 06/06/16 04:00 106 06/06/16 04:00 100.6 106 17 127/58 99 06/06/16 03:50 100 60 06/06/16 02:00 98 06/06/16 01:09 98 60 06/06/16 00:00 55 06/06/16 00:00 99.1 102 16 153/59 98 06/06/16 00:00 102 06/05/16 22:00 109 06/05/16 20:00 99.5 114 19 155/63 95 06/05/16 20:00 114 06/05/16 20:00 55 06/05/16 19:16 92 60 06/06/16 07:00 Intake Total 3782 ml Output Total 2935 ml Balance 847 ml (Allison Mccullough) Review of Systems/Exam Exam Ms. Michaels is intubated. Moderate eye opening to sternal rub, did not follow commands. Right ventriculostomy drain at 10 cm H20, draining well, dark red CSF, ICPs < 5 Cranial Nerves: Pupils 4 mm b/l reactive to 3 mm. There is response to visual threat. Sensorimotor: withdraws lower extremities to local stimuli Cerebellar: cannot assess Corneal reflexes present bilaterally. (Allison Mccullough) Exam Ms. Michaels is intubated. eye opening to sternal rub, she does not follow commands. Right ventriculostomy drain at 10 cm H20, draining well, dark red CSF, ICPs within normal limits Cranial Nerves: Pupils 4 mm b/l reactive to 3 mm. She responds to visual threat. Sensorimotor: no spontaneous movements seen, withdraws lower extremities to local stimuli, no withdrawals in the UE to pain stimuli Plantars equivocal. Cerebellar: cannot assess due to her condition Ms. Michaels is intubated. eye opening to sternal rub, she does intermittently follow commands with her lower extremities. Right ventriculostomy drain at 10 cm H20, draining well, dark red CSF, ICPs within normal limits Cranial Nerves: Pupils 4 mm b/l reactive to 3 mm. She responds to visual threat. Sensorimotor: no spontaneous movements seen, withdraws lower extremities to local stimuli, no withdrawals in the UE to pain stimuli Plantars equivocal. Cerebellar: cannot assess due to her condition (Arcenio Mtz MD) Medications Current Medications Current Medications Medications (Trade) Dose Ordered Sig/Jerry Route PRN Reason Start Time Stop Time Status Last Admin Dose Admin Propofol 100 ml @ 0 mls/hr TITRATE IV 05/27/16 19:45 05/28/16 23:16 Sodium Chloride (NS 1000 ml Inj) 1,000 ml @ 75 mls/hr [id number] IV 05/27/16 21:00 06/06/16 11:58 IV Flush (NS Flush) 2 ml UNSCH PRN IV FLUSH FLUSH AFTER USING IV ACCESS 05/27/16 20:45 05/27/16 22:30 IV Flush (NS Flush) 2 ml BID IV FLUSH 05/27/16 21:00 06/06/16 09:31 Acetaminophen (Tylenol) 650 mg Q6H PRN PO PAIN 1-10 AND/OR FEVER >101F 05/27/16 20:45 06/06/16 05:48 Famotidine (Pepcid Inj) 20 mg Q12HR IV PUSH 05/27/16 21:00 06/06/16 09:29 Artificial Tears (Tears Naturale Opth Soln) 1 drop TID EACH EYE 05/28/16 09:00 06/06/16 13:00 Ondansetron HCl (Zofran Inj) 4 mg Q6H PRN IV NAUSEA OR VOMITING 05/27/16 20:45 Docusate Sodium (Colace Liq) 100 mg Q12H G-TUBE 05/27/16 20:45 06/06/16 09:28 Miscellaneous Information 1 [id number] XX 05/27/16 20:45 05/27/16 20:45 Chlorhexidine Gluconate (Chlorhexidine 2% Cloth) Taper DAILY@04 TOP 05/28/16 04:00 05/24/17 03:59 06/06/16 04:00 Chlorhexidine Gluconate 3 pack 3 pack UNSCH PRN TOP HYGIENIC CARE 05/27/16 20:45 Nicardipine HCl/ Sodium Chloride (Cardene Inj/NS 250 ml Inj) 260 ml @ 0 mls/hr TITRATE IV 05/27/16 21:00 06/05/16 16:34 Nimodipine (Nimotop) 60 mg Q4HR PO 05/28/16 00:00 06/06/16 16:00 Pravastatin Sodium 40 mg 40 mg HS PO 05/27/16 21:00 06/05/16 20:16 Levetriacetam 100 ml @ 400 mls/hr Q12HR IV 05/28/16 09:00 06/06/16 09:28 Potassium Chloride 100 ml @ 50 mls/hr Q2H PRN IV For Potassium 2.8 - 3.2 mEq/L 05/28/16 01:45 06/04/16 13:40 Potassium Chloride (KCl 20 Meq Premix Inj) 100 ml @ 50 mls/hr Q2H PRN IV For Potassium 2.8 - 3.2 mEq/L 05/28/16 01:45 06/05/16 08:39 Potassium Chloride 40 meq 40 meq UNSCH PRN PO/TUBE For Potassium 3.3 - 3.5 mEq/L 05/28/16 01:45 06/03/16 12:44 Potassium Chloride 100 ml @ 25 mls/hr UNSCH PRN IV For Potassium 3.3 - 3.5 mEq/L 05/28/16 01:45 05/30/16 18:33 Potassium Chloride 100 ml @ 50 mls/hr Q2H PRN IV For Potassium 3.3 - 3.5 mEq/L 05/28/16 01:45 06/02/16 08:34 Magnesium Sulfate/ Sodium Chloride (Magnesium Sulfate Inj/NS Inj) 100 ml @ 50 mls/hr UNSCH PRN IV For Magnesium 0.9 - 1.1 mg/dL 05/28/16 01:45 Magnesium Oxide 800 mg 800 mg UNSCH PRN PO For Magnesium 1.2 - 1.6 mg/dL 05/28/16 01:45 Magnesium Sulfate/ Sodium Chloride (Magnesium Sulfate Inj/NS Inj) 100 ml @ 50 mls/hr UNSCH PRN IV For Magnesium 1.2 - 1.6 mg/dL 05/28/16 01:45 06/04/16 13:40 Potassium Phosphate 2000 mg 2,000 mg Q4H PRN PO For Phosphorus < 2.5 mg/dL 05/28/16 01:45 Sodium Phosphate/ Sodium Chloride (Sodium Phosphate Inj/NS 250 ml Inj) 250 ml @ 42 mls/hr UNSCH PRN IV For Phosphorus < 2.5 mg/dL 05/28/16 01:45 05/28/16 06:34 Potassium Chloride (KCl 40 Meq/30 ml Liq) 40 meq UNSCH PRN PO/TUBE SEE LABEL COMMENTS 05/28/16 01:45 06/03/16 05:31 Potassium Phosphate 2000 mg 2,000 mg UNSCH PRN PO/TUBE SEE LABEL COMMENTS 05/28/16 01:45 Potassium Phosphate/Sodium Chloride (Potassium Phosphate Inj/NS 250 ml Inj) 260 ml @ 42 mls/hr UNSCH PRN IV SEE LABEL COMMENTS 05/28/16 01:45 Dextrose (D50w (Vial) Inj) 25 ml UNSCH PRN IV PUSH HYPOGLYCEMIA-SEE COMMENTS 05/29/16 07:30 Insulin Human Regular 1 1 Q6HR SQ 05/29/16 12:00 06/06/16 12:00 Norepinephrine Bitartrate/Sodium Chloride (Levophed Inj/NS 250 ml Inj) 262 ml @ 0 mls/hr TITRATE IV 05/30/16 09:45 Fosphenytoin Sodium (Cerebyx Inj) 100 mgpe Q12HR IV 06/02/16 09:00 06/06/16 09:29 (Allison Mccullough) Medical Decision Making MDM Remarks 66 y/o female with subarachnoid hemorrhage suspected intracranial aneurysm, placement of ventriculostomy drain, ICPs remains within normal range CTA Head x 2 negative for aneurysm, Cerebral angiography neg for aneurysm, repeat cerebral angio 06/05/16 again neg for intracranial aneurysm MRI Brain and C spine without mass lesions (Allison Mccullough) Plan Plan Remarks f/u cerebral angio results, cont EVD draining at 10 cm h20 with icp monitoring serial neuro checks continue follow up neuro exam (Allison Mccullough) Attending Statement Continue neuro checks in a serial fashion. follow-up CT and CTA, and there is no clear evidence of an aneurysm follow-up TCDs. Follow-up angiography yesterday was negative Continue CSF drainage via ventriculostomy Respiratory. Continue mechanical ventilation in assist contyrol mode of mechanical ventilation, pulmonary toilette, nasotracheal suction, and breathing treatments with nebulizers. Hypertension As needed Cardene to maintain systolic blood pressure less than 150. PT and OT eval Nutrition. tube feedings Renal. Continue to monitor closely urine output, BUN and creatinine Endocrine. Continue to Monitor serial Acu checks and SSI for tight control ID continue to monitor for signs of infection Continue Protonix for stress ulcer prophylaxis Continue Julio hose and SCD's for DVT prophylaxis The exam, history, and the medical decision-making described in the above note were completed with the assistance of the mid-level provider. I reviewed and agree with the findings presented. I attest that I had a [id number] encounter with the patient on the same day, and personally performed and documented my assessment and findings in the medical record. (Arcenio Mtz MD) Allison Mccullough Jun 06, 2016 17:23 Arcenio Mtz MD Jun 09, 2016 17:36
[2016-06-06] MEDS: PRAVASTATIN SOD 40 MG TAB PO SCH (20:27)
[2016-06-07] VITALS (18 sets, daily range): BP systolic 132–154; BP diastolic 52–68; PULSE 102–113; RESP 19–25; TEMP 97.8–100.8; O2SAT 97–100
[2016-06-07] MEDS: niCARdipine INJ 25 MG in SODIUM CHLOR 0.9% 250 ML INJ 250 ML IV SCH ×5 (00:27→19:00)
[2016-06-07] MEDS: RESP: ALBUTEROL 2.5 MG/IPRATROPIUM 0.5 MG NEB (SCH) NEB ×4 (00:39→19:10)
[2016-06-07] MEDS: CHLORHEXIDINE GLUCONATE 2 % 1 PACK (2 CLOTHS) TOP SCH (04:00)
[2016-06-07 04:25] LABS: HEMATOCRIT 23.7 % (35.0-46.0); MEAN CELL VOLUME 91.1 FL (80.0-100.0); MEAN CORPUSCULAR HEMOGLOBIN 31.9 PG (27.0-34.0); MEAN CORPUSCULAR HGB CONC 35.1 % (32.0-36.0); PLATELET COUNT 182 TH/MM3 (150-450); RED CELL DISTRIBUTION WIDTH 13.3 % (11.6-17.2); REVIEW FLAG FINAL; WHITE BLOOD COUNT 9.6 TH/MM3 (4.0-11.0)
[2016-06-07 04:45] LABS: BICARBONATE 25.7 MEQ/L (21.0-32.0); POTASSIUM 3.1 MEQ/L (3.5-5.1)
[2016-06-07 05:07] LABS: CALCIUM-PROTEIN CORRECTED 8.5 MG/DL (8.5-10.1)
[2016-06-07] MEDS: niMODipine 30 MG CAP PO SCH ×5 (05:27→19:58)
[2016-06-07] MEDS: INSULIN NovoLIN REGULAR SUPPLEMENTAL SCALE SQ SCH ×3 (05:28→17:30)
[2016-06-07] MEDS: POTASSIUM CHLOR 20 MEQ PREMIX 100 ML IV PRN ×2 (05:33→05:34)
[2016-06-07] MEDS: DOCUSATE SODIUM 100 MG/10 ML UDC G-TUBE SCH ×2 (08:54→19:58)
[2016-06-07] MEDS: levETIRAcetam 1000 MG INJ 100 ML IV SCH ×2 (08:54→19:59)
[2016-06-07] MEDS: FAMOTIDINE 20 MG/2 ML VIAL IV PUSH SCH ×2 (08:56→19:59)
[2016-06-07] MEDS: ARTIFICIAL TEARS OPTH SOLN 15 ML BTL EACH EYE SCH ×3 (08:56→16:50)
[2016-06-07] MEDS: FOSPHENYTOIN SODIUM 100 MG PE/2 ML VIAL IV SCH ×2 (08:56→19:59)
[2016-06-07] MEDS: SODIUM CHLORIDE 0.9% FLUSH 5 ML FLUSH IV FLUSH SCH ×2 (08:56→19:59)
[2016-06-07] MEDS ORDERED: POTASSIUM CHLORIDE 20 MEQ PWD PACKET PO ONE (09:00)
[2016-06-07] MEDS ORDERED: LACTULOSE SYRUP 20 GM/30 ML CUP PO ONE (09:00)
[2016-06-07] MEDS ORDERED: GLYCERIN ADULT 2 GM SUPP RECTAL PRN (09:00)
--- NOTE | 2016-06-07 09:01 | HHI.CCPN ---
Subjective Remarks/Hospital Course Hospital Course: 66 years old female was transferred to [facility] from [facility] in [place]. Patient and her was vacationing from [place]. They aware on the train while at around 2:00 patient started having severe headache and then vomited and then had a syncopal episode. Patient was transported to [facility] in [place]. On the way to the hospital, patient started having respiratory problem and patient was subsequently intubated. Patient has history of atrial fibrillation and hypertension and on Xarelto 20 mg daily, atorvastatin, HCTZ/ losartan, metoprolol. CT scan of the brain done at [facility] in [place] shows diffuse subarachnoid hemorrhage with intraventricular extension and early obstructive hydrocephalus developing. Dr. Mtz, neurosurgeon at [facility] was contacted and accepted transfer. 05/28: slight improvements, withdrawing to deep nailbed pressure. on cardene for hypertension. plan for angio today or tomorrow. 05/29: worsening neuro exam overnight. repeat head CT with effacement, slight compression of the brainstem. angiogram overnight without evidence of aneurysm or vasospasm. more hypotensive this morning on norepinephrine. flaccid x 4, no cough or gag. propofol turned off at 0600. 05/30: EEG with evidence of seizures. Keppra increased yesterday and Cerebryx loaded. this morning, on increasing vasopressor requirements. added phenylephrine on top of maximal levophed, vasopressin. echo with prelim hyperdynamic biventricular function. ICP stable. poor neurologic function. posturing in UEs. 05/31: vasopressors weaned overnight significantly, but remains on some support. repeat EEG improved with no evidence of ongoing ictal activity. ICP stable. this morning, no longer following commands in LEs, no longer posturing in upper extremities. discussed care with Dr. Mtz, will plan to go to CT/CTA brain to r /o vasospasm.06/01: CTA yesterday without evidence of vasospasm. TCDs negative today for vasospasm. still will intermittently follow commands in LEs, nothing in upper extremities. Na still very high, 160s. ICP well controlled. off vasopressors. 06/02: Na coming down slowly. TCDs pending for today. neuro exam stable. phenytoin level borderline high. 06/03: Tmax 100.4. Currently 99.1. Tolerating tube feeds at goal. Positive BM. Neuro exam remains stable. 3/6: Remains sedated, orally intubated on mechanical ventilation. Ventriculostomy in place. Cardene drip at 1 mg/h 06/05: Remains sedated, orally intubated on mechanical ventilation. Ventriculostomy in place. 38: AM laboratories currently pending. Afebrile. Noted cerebral angiogram without signs of vasospasm. 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 Dr. Mtz recommends per contains tracheostomy per RN. Tolerating tube feeding. Subjective: 06/07: Tmax 99.5. Currently afebrile. Plan for cutaneous tracheostomy today. Ordered for PEG tube for a.m. Neurological unchanged with extension lower extremities flaccid upper extremities. Objective Vital Signs Date Time Temp Pulse Resp B/P Pulse Ox O2 Delivery O2 Flow Rate FiO2 06/07/16 08:00 97.8 103 19 137/61 99 06/07/16 08:00 50 Intake and Output 06/06/16 06/06/16 06/07/16 08:00 16:00 00:00 Intake Total 971 ml 1269 ml 1487 ml Output Total 830 ml 1420 ml 945 ml Balance 141 ml -151 ml 542 ml Result Diagram: 06/07/16 0406 06/07/16 0406 Imaging Last Impressions Transcranial Doppler Study Complete 06/06/165 Signed Impressions: Service Date/Time: Monday, June 06, 2016 08:05 - CONCLUSION: 1. Mildly elevated mean flow velocity within the anterior cerebral arteries. However, the Merino ratio is within normal limits suggesting the change may be due to physiologic factors. 2. Remainder of the examination demonstrates normal flow velocities and ratios without findings to indicate vasospasm. Lauro Lamb MD Cerebral Arteriogram 06/05/16 0000 Signed Impressions: Service Date/Time: Sunday, June 05, 2016 00:00 - CONCLUSION: 1. No evidence of aneurysm 2. 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 Stable bibasilar airspace disease, left greater than right with probable associated left-sided effusion. 2. Stable position of life support tubes. Immanuel Nix MD Cervical Spine MRI 06/01/16 0000 Signed Impressions: Service Date/Time: Wednesday, June 01, 2016 12:14 - CONCLUSION: Large amount of blood in the subarachnoid space. I do not see a mass. Etiology for the hemorrhage is not apparent. Dillon Zaragoza MD FACR Brain MRI 06/01/16 0000 Signed Impressions: Service Date/Time: Wednesday, June 01, 2016 12:14 - CONCLUSION: 1. Intraventricular blood, negative for mass. Dillon Zaragoza MD FACR Head CTA 05/31/16 0000 Signed Impressions: Service Date/Time: , May 31, 2016 10:44 - CONCLUSION: 1. No evidence of vasospasm Brandon Herrera MD Head CT 05/31/16 0000 Signed Impressions: Service Date/Time: May 10:44 - CONCLUSION: Extensive subarachnoid hemorrhage including significant hemorrhage in the foramen magnum similar to the 05/29/16 exam. The ventricles do appear to be larger today with significant intraventricular hemorrhage present. Ventriculostomy catheter in good position. David Spencer MD Objective Remarks GENERAL: 66 year old female, critically ill currently orotracheally intubated SKIN: Warm and dry. No rash HEAD:tatus post right frontal daquan hole ventriculostomy EYES: PERRL. Around 5 mm bilaterally. Left sometimes 4 cm/last than right. No scleral icterus. No injection or drainage. NECK: Supple, trachea midline. No JVD or lymphadenopathy. CARDIOVASCULAR: RRR. S1, S2 no sore. Without murmur RESPIRATORY: Breath sounds equal bilaterally. No accessory muscle use. GASTROINTESTINAL: Abdomen soft, non-tender, nondistended. Positive bowel sounds appreciated MUSCULOSKELETAL: With trace lower extremity edema Neuro: Currently no significant movement in uppers extremities, weakly following commands LEs. A/P Problem List: (1) Subarachnoid hemorrhage ICD Code: I60.9 Status: Acute (2) Atrial fibrillation ICD Code: I48.91 Status: Acute (3) Coagulopathy ICD Code: D68.9 Status: Acute (4) Respiratory failure ICD Code: J96.90 Status: Acute (5) Hypertension ICD Code: I10 Status: Acute Assessment and Plan Neuro/Psych: Spontaneous subarachnoid bleed Intracranial hypertension Status post right daquan hole ventriculostomy Malignant cerebral edema Seizures CT head revealed subarachnoid hemorrhage/brainstem right greater than left and intraventricular hemorrhage on the third ventricle/foramen of Monro and lateral ventricle MRI/A revealed no mass/source of bleeding EEG 05/31 revealed moderate encephalopathy. No epileptiform activity q1h neuro checks Nimodipine 60 mg every 4 hours for 21 days Four-vessel angiogram 05/29 negative for aneurysm of vasospasm. No FMD - unable to access left vertebral artery off sedation, as long as ICPs are controlled --s/p 3% nacl. slowly normalizing Na, eventual goal Na 140 - 145. hold free water --Keppra 1000 twice a day and Dilantin 100mg iv q12h. recheck phenytoin level 06/05 was 7.8 --Dr. Mtz: neurosurgery -- CT/CTA 05/31: no evidence of vasospasm. -- daily TCDs, so far negative for vasospasm. --Negative cerebral angio to confirm 06/06. Respiratory: Acute Hypoxic and hypercarbic respiratory failure PRVC ventilation 14/450/04/05/39 Vent bundle -- As needed bronchodilator therapy Head of bed elevated Wean FiO2 for goal SPO2 greater than 92% Does not meet SBT criteria given mental status. --Written for tracheostomy for today. Will need PEG tube afterwards Cardiovascular: Severe vasoplegia/Distributive Shock- resolving. History of hypertension Dyslipidemia History fibrillation/chronic Off vasopressors. without evidence of vasospasm, as long as CPP is maintained, will relax bp goals to SBP 120 - 180. Cardene drip if needed Nimodipine 60 mg every 4 Home medications are losartan/Advicor thousand 100/12.5 daily and metoprolol 25 mg twice a day. This is currently been held. Resume when clinically indicated Patient's current Pravachol 40 mg by mouth daily/hospital substitution for atorvastatin 20 mg at night anemia Echocardiogram 05/31 revealed EF 65%. Moderate TR. POLO 54 mm Hg Renal: Parker for strict I's and O's -- Strict I/Os Avoid hypovolemia FEN/GI: Hypernatremia - resolving Acute protein calorie malnutrition- mild Hypokalemia Maintenance fluids normal saline. Avoid hypovolemia tube feeds, jevity 1.5, goal 50 cc an hour -Pepcid twice a day for GI prophylaxis - Colace/Senokot for bowel regimen ICU electrolyte protocol 40 mEq KCl, 2 g mag sulfate. Recheck in a.m. Daily BMP Heme/ID: Coagulopathy secondary to Xarelto anticoagulation use for atrial fibrillation- resolved. Leukocytosis Daily CBC Status post K Centra Does not meet transfusion triggers at this time --holding Eliquis given SAH. Endocrine: Hyperglycemia of critical illness -- SSI, every 6 hours, medium scale Prophylaxis: GI Prophylaxis pepcid iv q12h. DVT Prophylaxis -- SCDs Holding pharmacologic DVT prophylaxis given intracranial hemorrhage Lines: 05/27 right IJ triple lumen catheter removed 06/06. Currently PIV Parker EVD Critical Care: The total critical care time was 35 minutes. Time to perform other separately billable procedures was not included in the critical care time. Edd Crow MD Jun 07, 2016 09:01
[2016-06-07] MEDS: POLYETHYLENE GLYCOL 17 GM PKG PO SCH (09:10)
[2016-06-07] MEDS: SENNOSIDES SYRUP 8.8 MG/5 ML CUP PO/TUBE SCH ×2 (09:10→19:58)
[2016-06-07] MEDS: POTASSIUM CL 40 MEQ/30 ML LIQ UDC PO/TUBE PRN (09:10)
[2016-06-07] MEDS: MAGNESIUM SULFATE 1 GM PREMIX 100 ML IV SCH ×2 (09:11→12:28)
[2016-06-07] MEDS: SODIUM CHLOR 0.9% 1000 ML INJ 1,000 ML IV SCH (12:29)
--- NOTE | 2016-06-07 12:43 | PD.CONS ---
HPI History of Present Illness This is a 66 year old female with past medical history of atrial fibrillation and hypertension who was transferred to [facility] from [facility] in [place] after complaining of severe headache associated with vomiting that was followed by a syncopal episode. She subsequently developed respiratory problem and patient was subsequently intubated. CT scan of the brain done at [facility] in [place] shows diffuse subarachnoid hemorrhage with intraventricular extension and early obstructive hydrocephalus developing. Dr. Mtz is following and ventriculostomy in place. There is a plan for tracheostomy today. GI have been consulted for PEG tube placement. She is tolerating TF. by bed side, procedure, risk, benefits and alternative discussed with him and is agreeing PFSH Past Medical History Atrial Fibrillation on Xarelto High Cholesterol Hypertension Past Surgical History None Coded Allergies: UNOBTAINABLE (Unverified , 05/27/16) pt intubated, states he believes she may be but is unsure as to what. Medications Current Medications Medications (Trade) Dose Ordered Sig/Jerry Route Start Time Stop Time Status Last Admin Propofol 100 ml @ 0 mls/hr TITRATE IV 05/27/16 19:45 05/28/16 23:16 (NS 1000 ml Inj) 1,000 ml @ 75 mls/hr [id number] IV 05/27/16 21:00 06/06/16 11:58 (NS Flush) 2 ml UNSCH PRN IV FLUSH 05/27/16 20:45 05/27/16 22:30 (NS Flush) 2 ml BID IV FLUSH 05/27/16 21:00 06/07/16 08:56 (Tylenol) 650 mg Q6H PRN PO 05/27/16 20:45 06/06/16 16:00 (Pepcid Inj) 20 mg Q12HR IV PUSH 05/27/16 21:00 06/07/16 08:56 (Tears Naturale Opth Soln) 1 drop TID EACH EYE 05/28/16 09:00 06/07/16 08:56 (Zofran Inj) 4 mg Q6H PRN IV 05/27/16 20:45 (Colace Liq) 100 mg Q12H G-TUBE 05/27/16 20:45 06/07/16 08:54 Miscellaneous Information 1 Q361D XX 05/27/16 20:45 05/27/16 20:45 (Chlorhexidine 2% Cloth) Taper DAILY@04 TOP 05/28/16 04:00 05/24/17 03:59 06/07/16 04:00 Chlorhexidine Gluconate 3 pack 3 pack UNSCH PRN TOP 05/27/16 20:45 (Cardene Inj/NS 250 ml Inj) 260 ml @ 0 mls/hr TITRATE IV 05/27/16 21:00 06/07/16 10:06 (Nimotop) 60 mg Q4HR PO 05/28/16 00:00 06/07/16 08:54 Pravastatin Sodium 40 mg 40 mg HS PO 05/27/16 21:00 06/06/16 20:27 Levetriacetam 100 ml @ 400 mls/hr Q12HR IV 05/28/16 09:00 06/07/16 08:54 Potassium Chloride 100 ml @ 50 mls/hr Q2H PRN IV 05/28/16 01:45 06/04/16 13:40 (KCl 20 Meq Premix Inj) 100 ml @ 50 mls/hr Q2H PRN IV 05/28/16 01:45 06/07/16 05:34 Potassium Chloride 40 meq 40 meq UNSCH PRN PO/TUBE 05/28/16 01:45 06/03/16 12:44 Potassium Chloride 100 ml @ 25 mls/hr UNSCH PRN IV 05/28/16 01:45 05/30/16 18:33 Potassium Chloride 100 ml @ 50 mls/hr Q2H PRN IV 05/28/16 01:45 06/02/16 08:34 (Magnesium Sulfate Inj/NS Inj) 100 ml @ 50 mls/hr UNSCH PRN IV 05/28/16 01:45 Magnesium Oxide 800 mg 800 mg UNSCH PRN PO 05/28/16 01:45 (Magnesium Sulfate Inj/NS Inj) 100 ml @ 50 mls/hr UNSCH PRN IV 05/28/16 01:45 06/04/16 13:40 Potassium Phosphate 2000 mg 2,000 mg Q4H PRN PO 05/28/16 01:45 (Sodium Phosphate Inj/NS 250 ml Inj) 250 ml @ 42 mls/hr UNSCH PRN IV 05/28/16 01:45 05/28/16 06:34 (KCl 40 Meq/30 ml Liq) 40 meq UNSCH PRN PO/TUBE 05/28/16 01:45 06/03/16 05:31 Potassium Phosphate 2000 mg 2,000 mg UNSCH PRN PO/TUBE 05/28/16 01:45 (Potassium Phosphate Inj/NS 250 ml Inj) 260 ml @ 42 mls/hr UNSCH PRN IV 05/28/16 01:45 (D50w (Vial) Inj) 25 ml UNSCH PRN IV PUSH 05/29/16 07:30 Insulin Human Regular 1 1 Q6HR SQ 05/29/16 12:00 06/06/16 23:12 (Levophed Inj/NS 250 ml Inj) 262 ml @ 0 mls/hr TITRATE IV 05/30/16 09:45 (Cerebyx Inj) 100 mgpe Q12HR IV 06/02/16 09:00 06/07/16 08:56 (Senna Liq) 8.8 mg BID PO/TUBE 06/07/16 09:00 06/07/16 09:10 (Miralax) 17 gm DAILY PO 06/07/16 09:00 06/07/16 09:10 (Glycerin Adult Supp) 2 gm BID PRN RECTAL 06/07/16 09:00 Family History Non contributory Social History No alcohol No smoking No illicit drug use Review of Systems ROS unable to obtain GI Exam Vitals I&O Vital Signs Date Time Temp Pulse Resp B/P Pulse Ox O2 Delivery O2 Flow Rate FiO2 06/07/16 12:00 103 06/07/16 12:00 50 06/07/16 12:00 100.6 108 23 154/68 100 06/07/16 10:00 103 06/07/16 08:00 97.8 103 19 137/61 99 06/07/16 08:00 103 06/07/16 08:00 50 06/07/16 07:57 98 55 06/07/16 06:00 104 06/07/16 04:00 104 06/07/16 04:00 99.5 104 21 149/60 99 06/07/16 04:00 50 06/07/16 03:58 98 60 06/07/16 02:00 102 06/07/16 00:39 99 50 06/07/16 00:00 50 06/07/16 00:00 107 06/07/16 00:00 100.8 109 21 132/55 99 06/06/16 22:00 109 06/06/16 20:00 50 06/06/16 20:00 103 06/06/16 20:00 100.0 103 23 140/59 99 06/06/16 19:28 92 50 06/06/16 18:00 119 06/06/16 16:00 100.8 119 22 171/57 98 06/06/16 16:00 50 06/06/16 16:00 119 06/06/16 15:04 99 50 06/06/16 14:00 112 I/O 06/06/16 06/06/16 06/06/16 06/07/16 06/07/16 06/07/16 07:00 15:00 23:00 07:00 15:00 23:00 Intake Total 971 ml 1269 ml 1487 ml 955 ml Output Total 830 ml 1420 ml 945 ml 1040 ml Balance 141 ml -151 ml 542 ml -85 ml Intake IV Total 536 ml 772 ml 1032 ml 955 ml Tube Feeding 435 ml 497 ml 455 ml Output Urine Total 800 ml 1400 ml 900 ml 1000 ml Drainage Total 30 ml 20 ml 45 ml 40 ml # Bowel Movements 0 0 0 0 Imaging Last Impressions Transcranial Doppler Study Complete 06/06/16 0215 Signed Impressions: Service Date/Time: Monday, June 06, 2016 08:05 - CONCLUSION: 1. Mildly elevated mean flow velocity within the anterior cerebral arteries. However, the Merino ratio is within normal limits suggesting the change may be due to physiologic factors. 2. Remainder of the examination demonstrates normal flow velocities and ratios without findings to indicate vasospasm. Lauro Lamb MD Cerebral Arteriogram 06/05/16 0000 Signed Impressions: Service Date/Time: Sunday, June 05, 2016 00:00 - CONCLUSION: 1. No evidence of aneurysm 2. 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 Stable bibasilar airspace disease, left greater than right with probable associated left-sided effusion. 2. Stable position of life support tubes. Immanuel Nix MD Cervical Spine MRI 3/3/17 0000 Signed Impressions: Service Date/Time: Wednesday, June 01, 2016 12:14 - CONCLUSION: Large amount of blood in the subarachnoid space. I do not see a mass. Etiology for the hemorrhage is not apparent. Dillon Zaragoza MD FACR Brain MRI 06/01/16 0000 Signed Impressions: Service Date/Time: Wednesday, June 01, 2016 12:14 - CONCLUSION: 1. Intraventricular blood, negative for mass. Dillon Zaragoza MD FACR Head CTA 05/31/16 0000 Signed Impressions: Service Date/Time: May 10:44 - CONCLUSION: 1. No evidence of vasospasm Brandon Herrera MD Head CT 05/31/16 0000 Signed Impressions: Service Date/Time: May 10:44 - CONCLUSION: Extensive subarachnoid hemorrhage including significant hemorrhage in the foramen magnum similar to the 05/29/16 exam. The ventricles do appear to be larger today with significant intraventricular hemorrhage present. Ventriculostomy catheter in good position. David Spencer MD Laboratory Test 06/06/16 06/07/16 15:40 04:06 White Blood Count 10.1 TH/MM3 9.6 TH/MM3 Red Blood Count 3.11 MIL/MM3 2.60 MIL/MM3 Hemoglobin 9.7 GM/DL 8.3 GM/DL Hematocrit 28.2 % 23.7 % Mean Corpuscular Volume 90.5 FL 91.1 FL Mean Corpuscular Hemoglobin 31.3 PG 31.9 PG Mean Corpuscular Hemoglobin 34.6 % 35.1 % Concent Red Cell Distribution Width 13.5 % 13.3 % Platelet Count 199 TH/MM3 182 TH/MM3 Mean Platelet Volume 10.2 FL 9.6 FL Neutrophils (%) (Auto) 84.3 % Lymphocytes (%) (Auto) 9.5 % Monocytes (%) (Auto) 5.2 % Eosinophils (%) (Auto) 0.6 % Basophils (%) (Auto) 0.4 % Neutrophils # (Auto) 8.5 TH/MM3 Lymphocytes # (Auto) 1.0 TH/MM3 Monocytes # (Auto) 0.5 TH/MM3 Eosinophils # (Auto) 0.1 TH/MM3 Basophils # (Auto) 0.0 TH/MM3 CBC Comment DIFF FINAL Differential Comment Sodium Level 139 MEQ/L 140 MEQ/L Potassium Level 3.5 MEQ/L 3.1 MEQ/L Chloride Level 103 MEQ/L 104 MEQ/L Carbon Dioxide Level 26.8 MEQ/L 25.7 MEQ/L Anion Gap 9 MEQ/L 10 MEQ/L Blood Urea Nitrogen 11 MG/DL 7 MG/DL Creatinine 0.52 MG/DL 0.33 MG/DL Estimat Glomerular Filtration 118 ML/MIN 199 ML/MIN Rate Random Glucose 156 MG/DL 113 MG/DL Calcium Level 8.0 MG/DL 7.3 MG/DL Phosphorus Level 3.2 MG/DL Magnesium Level 1.9 MG/DL Total Bilirubin 0.3 MG/DL Aspartate Amino Transf 133 U/L (AST/SGOT) Alanine Aminotransferase 183 U/L (ALT/SGPT) Alkaline Phosphatase 173 U/L Total Creatine Kinase 109 U/L Total Protein 5.5 GM/DL 5.0 GM/DL Albumin 1.7 GM/DL Protein Corrected Calcium 8.5 MG/DL Ammonia 16 MCMOL/L Physical Examination HEENT: normocephalic; atraumatic; no jaundice. NECK: Neck is supple, no JVD, no lymphadenopathy. CHEST: Chest is clear to auscultation and percussion. CARDIAC: Regular rate and rhythm ABDOMEN: Soft, nondistended, nontender; no hepatosplenomegaly; bowel sounds are present in all four quadrants. EXTREMITIES: No clubbing, cyanosis, or edema. SKIN: Normal; no rash; no jaundice. 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 She subsequently developed respiratory problem and patient was subsequently intubated. CT scan of the brain done at [facility] shows diffuse subarachnoid hemorrhage with intraventricular extension and early obstructive hydrocephalus developing. Dr. Mtz is following and ventriculostomy in place. There is a plan for tracheostomy today. GI have been consulted for PEG tube placement. She is tolerating TF. by bed side, procedure, risk, benefits and alternative discussed with him and is agreeing - Respiratory failure- on a vent per [facility], plan for trach today - Subarachnoid hemorrhage, A-fib, per [facility] Plan: - NPO - EGD/PEG today - Ancef clinical practice consultant - Supportive care - Patient seen and examined by Dr. Manley and myself and this note is written on his behalf. Luz Ibarra Jun 07, 2016 12:43
[2016-06-07] MEDS ORDERED: ceFAZolin 2 GM PREMIX 50 ML IV ONE (12:45)
[2016-06-07 13:56] LABS: APTT (PATIENT) 25.7 SEC (24.3-30.1); INTERNATIONAL NORMALIZED RATIO 0.9 RATIO; PROTHROMBIN TIME - PATIENT 10.1 SEC (9.8-11.6)
--- NOTE | 2016-06-07 14:21 | HHI.NSPN ---
(Allison Mccullough) Note Status Status: Progress Note (Allison Mccullough) Interval History Interval History This is a 66 years old female was transferred to [facility] from [facility] for a subarachnoid hemorrhage. The patient and the was vacationing from [place]. They were on the train. Patient's states that around 2:00 this afternoon she suddenly developed severe headache and then vomited, and then had a syncopal episode. The train stopped. EMS was called. EMS personnel state that patient had altered status was able to follow commands and beginning without focal neurological deficit. No seizure activity. No tongue bitting. No tonic clonic movements. no incontinence of stool or urine. She was transported to [facility] in [place]. On the way to the hospital, she developed respiratory problem and patient was subsequently endotracheally intubated. She has history of atrial fibrillation and hypertension and was anticoagulated with Xarelto 20 mg daily. In addition she takes atorvastatin, HCTZ/ losartan, metoprolol. CT scan of the brain done at [facility] in [place] shows extensive subarachnoid and intraventricular hemorrhage with early obstructive hydrocephalus developing. She was placed given propofol and Cardene drip. Cardene drip and propofol was stopped secondary to hypotension on the way to the ED. Neurosurgical consultation was requested 05/28: intubated and sedated, s/p placement of ventriculostomy drain. CTA Brain neg for aneurysm, for cerebral angiography today, 05/29: seen this am during am round, withdrawing in the lower extremities, did not open eyes or follow commands for me, was reported to have followed with nursing. Cerebral angiography yesterday was neg for aneurysm. Then sergei Mario , patient having seizures, and posturing. ICPs has been 8-10, nursing reports EVD draining, CSF blood tinged. Transcranial doppler early this am negative for vasospasm 3/1: extends in uppers, withdraws in LEs 3/2: minimal withdrawals in the lower extremities, and extension. f/u CT Brain shows increased ventriculomegaly. CTA Head unremarkable for intracranial aneurysm. f/u EEG reports severe encephalopathy. ICPs at highest 8 overnight. 06/01: this morning slightly wiggled toes to command. ICPs below 5, EVD draining blood tinged CSF. 06/04: slightly opening eyes, EVD draining dark red CSF at 10 cm H20, ICPs at highest 8 overnight. 06/05: ICPs stable overnight, opening eyes. No reports of seizure like activities overnight. EVD continues to drain well. 06/06: cerebral angio completed yesterday, otherwise no neuro changes overnight. EVD draining, with stable ICPs. 06/07: opens eyes to pain stim, withdraws LE's, CSF dark red with stable ICPs ( Allison Mccullough) Labs, Micro, & Vital Signs Results Date Time Temp Pulse Resp B/P Pulse Ox O2 Delivery O2 Flow Rate FiO2 06/07/16 13:57 97 100 06/07/16 12:00 103 06/07/16 12:00 50 06/07/16 12:00 100.6 108 23 154/68 100 06/07/16 10:00 103 06/07/16 08:00 97.8 103 19 137/61 99 06/07/16 08:00 103 06/07/16 08:00 50 06/07/16 07:57 98 55 06/07/16 06:00 104 06/07/16 04:00 104 06/07/16 04:00 99.5 104 21 149/60 99 06/07/16 04:00 50 06/07/16 03:58 98 60 06/07/16 02:00 102 06/07/16 00:39 99 50 06/07/16 00:00 50 06/07/16 00:00 107 06/07/16 00:00 100.8 109 21 132/55 99 06/06/16 22:00 109 06/06/16 20:00 50 06/06/16 20:00 103 06/06/16 20:00 100.0 103 23 140/59 99 06/06/16 19:28 92 50 06/06/16 18:00 119 06/06/16 16:00 100.8 119 22 171/57 98 06/06/16 16:00 50 06/06/16 16:00 119 06/06/16 15:04 99 50 06/07/16 07:00 Intake Total 3711 ml Output Total 3405 ml Balance 306 ml Constitutional Vital Signs Date Time Temp Pulse Resp B/P Pulse Ox O2 Delivery O2 Flow Rate FiO2 06/07/16 13:57 97 100 06/07/16 12:00 103 06/07/16 12:00 50 06/07/16 12:00 100.6 108 23 154/68 100 06/07/16 10:00 103 06/07/16 08:00 97.8 103 19 137/61 99 06/07/16 08:00 103 06/07/16 08:00 50 06/07/16 07:57 98 55 06/07/16 06:00 104 06/07/16 04:00 104 06/07/16 04:00 99.5 104 21 149/60 99 06/07/16 04:00 50 06/07/16 03:58 98 60 06/07/16 02:00 102 06/07/16 00:39 99 50 06/07/16 00:00 50 06/07/16 00:00 107 06/07/16 00:00 100.8 109 21 132/55 99 06/06/16 22:00 109 06/06/16 20:00 50 06/06/16 20:00 103 06/06/16 20:00 100.0 103 23 140/59 99 06/06/16 19:28 92 50 06/06/16 18:00 119 06/06/16 16:00 100.8 119 22 171/57 98 06/06/16 16:00 50 06/06/16 16:00 119 06/06/16 15:04 99 50 06/07/16 07:00 Intake Total 3711 ml Output Total 3405 ml Balance 306 ml (Allison Mccullough) Review of Systems/Exam Exam Ms. Michaels is intubated. Moderate eye opening to sternal rub, did not follow commands. Right ventriculostomy drain at 10 cm H20, draining well, dark red CSF, ICPs < 5 Cranial Nerves: Pupils 4 mm b/l reactive to 3 mm. There is response to visual threat. Sensorimotor: withdraws lower extremities to local stimuli, no movement to UE with pain stimuli Plantars equivocal. Cerebellar: cannot assess Corneal reflexes present bilaterally. (Allison Mccullough) Exam Ms. Michaels is intubated. eye opening to sternal rub, she does not follow commands. Right ventriculostomy drain at 10 cm H20, draining well, dark red CSF, ICPs within normal limits Cranial Nerves: Pupils 4 mm b/l reactive to 3 mm. She responds to visual threat. Sensorimotor: no spontaneous movements seen, withdraws lower extremities to local stimuli, no withdrawals in the UE to pain stimuli Plantars equivocal. Cerebellar: cannot assess due to her condition (Arcenio Mtz MD) Medications Current Medications Current Medications Medications (Trade) Dose Ordered Sig/Jerry Route PRN Reason Start Time Stop Time Status Last Admin Dose Admin Propofol 100 ml @ 0 mls/hr TITRATE IV 05/27/16 19:45 05/28/16 23:16 Sodium Chloride (NS 1000 ml Inj) 1,000 ml @ 75 mls/hr [id number] IV 05/27/16 21:00 06/07/16 12:29 IV Flush (NS Flush) 2 ml UNSCH PRN IV FLUSH FLUSH AFTER USING IV ACCESS 05/27/16 20:45 05/27/16 22:30 IV Flush (NS Flush) 2 ml BID IV FLUSH 05/27/16 21:00 06/07/16 08:56 Acetaminophen (Tylenol) 650 mg Q6H PRN PO PAIN 1-10 AND/OR FEVER >101F 05/27/16 20:45 06/06/16 16:00 Famotidine (Pepcid Inj) 20 mg Q12HR IV PUSH 05/27/16 21:00 06/07/16 08:56 Artificial Tears (Tears Naturale Opth Soln) 1 drop TID EACH EYE 05/28/16 09:00 06/07/16 12:28 Ondansetron HCl (Zofran Inj) 4 mg Q6H PRN IV NAUSEA OR VOMITING 05/27/16 20:45 Docusate Sodium (Colace Liq) 100 mg Q12H G-TUBE 05/27/16 20:45 06/07/16 08:54 Miscellaneous Information 1 Q361D XX 05/27/16 20:45 05/27/16 20:45 Chlorhexidine Gluconate (Chlorhexidine 2% Cloth) Taper DAILY@04 TOP 05/28/16 04:00 05/24/17 03:59 06/07/16 04:00 Chlorhexidine Gluconate 3 pack 3 pack UNSCH PRN TOP HYGIENIC CARE 05/27/16 20:45 Nicardipine HCl/ Sodium Chloride (Cardene Inj/NS 250 ml Inj) 260 ml @ 0 mls/hr TITRATE IV 05/27/16 21:00 06/07/16 12:28 Nimodipine (Nimotop) 60 mg Q4HR PO 05/28/16 00:00 06/07/16 12:27 Pravastatin Sodium 40 mg 40 mg HS PO 05/27/16 21:00 06/06/16 20:27 Levetriacetam 100 ml @ 400 mls/hr Q12HR IV 05/28/16 09:00 06/07/16 08:54 Potassium Chloride 100 ml @ 50 mls/hr Q2H PRN IV For Potassium 2.8 - 3.2 mEq/L 05/28/16 01:45 06/04/16 13:40 Potassium Chloride (KCl 20 Meq Premix Inj) 100 ml @ 50 mls/hr Q2H PRN IV For Potassium 2.8 - 3.2 mEq/L 05/28/16 01:45 06/07/16 05:34 Potassium Chloride 40 meq 40 meq UNSCH PRN PO/TUBE For Potassium 3.3 - 3.5 mEq/L 05/28/16 01:45 06/03/16 12:44 Potassium Chloride 100 ml @ 25 mls/hr UNSCH PRN IV For Potassium 3.3 - 3.5 mEq/L 05/28/16 01:45 05/30/16 18:33 Potassium Chloride 100 ml @ 50 mls/hr Q2H PRN IV For Potassium 3.3 - 3.5 mEq/L 05/28/16 01:45 06/02/16 08:34 Magnesium Sulfate/ Sodium Chloride (Magnesium Sulfate Inj/NS Inj) 100 ml @ 50 mls/hr UNSCH PRN IV For Magnesium 0.9 - 1.1 mg/dL 05/28/16 01:45 Magnesium Oxide 800 mg 800 mg UNSCH PRN PO For Magnesium 1.2 - 1.6 mg/dL 05/28/16 01:45 Magnesium Sulfate/ Sodium Chloride (Magnesium Sulfate Inj/NS Inj) 100 ml @ 50 mls/hr UNSCH PRN IV For Magnesium 1.2 - 1.6 mg/dL 05/28/16 01:45 06/04/16 13:40 Potassium Phosphate 2000 mg 2,000 mg Q4H PRN PO For Phosphorus < 2.5 mg/dL 05/28/16 01:45 Sodium Phosphate/ Sodium Chloride (Sodium Phosphate Inj/NS 250 ml Inj) 250 ml @ 42 mls/hr UNSCH PRN IV For Phosphorus < 2.5 mg/dL 05/28/16 01:45 05/28/16 06:34 Potassium Chloride (KCl 40 Meq/30 ml Liq) 40 meq UNSCH PRN PO/TUBE SEE LABEL COMMENTS 05/28/16 01:45 06/03/16 05:31 Potassium Phosphate 2000 mg 2,000 mg UNSCH PRN PO/TUBE SEE LABEL COMMENTS 05/28/16 01:45 Potassium Phosphate/Sodium Chloride (Potassium Phosphate Inj/NS 250 ml Inj) 260 ml @ 42 mls/hr UNSCH PRN IV SEE LABEL COMMENTS 05/28/16 01:45 Dextrose (D50w (Vial) Inj) 25 ml UNSCH PRN IV PUSH HYPOGLYCEMIA-SEE COMMENTS 05/29/16 07:30 Insulin Human Regular 1 1 Q6HR SQ 05/29/16 12:00 06/06/16 23:12 Norepinephrine Bitartrate/Sodium Chloride (Levophed Inj/NS 250 ml Inj) 262 ml @ 0 mls/hr TITRATE IV 05/30/16 09:45 Fosphenytoin Sodium (Cerebyx Inj) 100 mgpe Q12HR IV 06/02/16 09:00 06/07/16 08:56 Sennosides (Senna Liq) 8.8 mg BID PO/TUBE 06/07/16 09:00 06/07/16 09:10 Polyethylene Glycol (Miralax) 17 gm DAILY PO 06/07/16 09:00 06/07/16 09:10 Glycerin (Glycerin Adult Supp) 2 gm BID PRN RECTAL CONSTIPATION 06/07/16 09:00 (Allison Mccullough) Medical Decision Making MDM Remarks 66 y/o female with subarachnoid hemorrhage suspected intracranial aneurysm, placement of ventriculostomy drain, ICPs remains within normal range CTA Head x 2 negative for aneurysm, Cerebral angiography neg for aneurysm, repeat cerebral angio 06/05/16 again neg for intracranial aneurysm MRI Brain and C spine without mass lesions (Allison Mccullough) Plan Plan Remarks cont EVD draining, cont icp monitoring cont serial neuro checks continue follow up neuro exam clear for tracheostomy and PEG placement (Allison Mccullough) Attending Statement Continue neuro checks in a serial fashion. follow-up CT and CTA, and there is no clear evidence of an aneurysm follow-up TCDs. Follow-up angiography yesterday was negative Continue CSF drainage via ventriculostomy Respiratory. Continue mechanical ventilation in assist contyrol mode of mechanical ventilation, pulmonary toilette, nasotracheal suction, and breathing treatments with nebulizers. Hypertension As needed Cardene to maintain systolic blood pressure less than 150. PT and OT eval Nutrition. tube feedings Renal. Continue to monitor closely urine output, BUN and creatinine Endocrine. Continue to Monitor serial Acu checks and SSI for tight control ID continue to monitor for signs of infection Continue Protonix for stress ulcer prophylaxis Continue Julio hose and SCD's for DVT prophylaxis The exam, history, and the medical decision-making described in the above note were completed with the assistance of the mid-level provider. I reviewed and agree with the findings presented. I attest that I had a [id number] encounter with the patient on the same day, and personally performed and documented my assessment and findings in the medical record. Discussed with her family (Arcenio Mtz MD) Allison Mccullough Jun 07, 2016 14:21 Arcenio Mtz MD Jun 09, 2016 17:25
[2016-06-07] MEDS ORDERED: ceFAZolin INJ 1,000 MG VIAL IV ONE (15:14)
[2016-06-07] MEDS ORDERED: PROPOFOL 200 MG/20 ML AMP IV ONE (15:15)
--- NOTE | 2016-06-07 16:05 | RADRPT ---
EXAM DATE/TIME: 06/07/2016 07:36 [facility] COMPARISON: US TRANSCRANIAL DOPPLER COMPLETE, June 06, 2016, 8:05. INDICATIONS : Subarachnoid hemorrhage. MEDICAL HISTORY : Cerebrovascular disease. Hypercholesterolemia. Hypertension. Subarachnoid hemorrhage. Syncope. A-Fib . Hydrocephalus. SURGICAL HISTORY : Right frontal Chappell hole with ventriculostomy drain. ENCOUNTER: Sequela ACUITY: 1 week PAIN SCORE: Nonresponsive. LOCATION: Bilateral cranial RIGHT: LEFT: Current Exam: Jun 07, 2016 [place] Ratio: 1.2 2.2 [place] Ratio: 0.5 1.2 Previous Exam: Jun 06, 2016 [place] Ratio: 2.9 2.5 [place] Ratio: 2.7 1.9 FINDINGS: Examination performed at bedside. Real-time ultrasound with the assistance of color and spectral Dop pler was utilized to evaluate the intracerebral circulation. Time-averaged maximal velocities are ca lculated in cm/s. Velocities are within normal limits. CONCLUSION: No evidence of significant vasospasm. Riley Roman MD on June 07, 2016 at 15:58 Board Certified Radiologist. This report was verified electronically.
[2016-06-07] MEDS: ACETAMINOPHEN 325 MG TAB PO PRN (17:14)
[2016-06-07] MEDS: PRAVASTATIN SOD 40 MG TAB PO SCH (19:58)
[2016-06-08] VITALS (21 sets, daily range): BP systolic 134–152; BP diastolic 58–62; PULSE 94–114; RESP 20–28; TEMP 99.3–100.8; O2SAT 92–100
[2016-06-08] MEDS: niCARdipine INJ 25 MG in SODIUM CHLOR 0.9% 250 ML INJ 250 ML IV SCH ×8 (00:09→20:54)
[2016-06-08] MEDS: niMODipine 30 MG CAP PO SCH ×6 (00:36→20:53)
[2016-06-08] MEDS: POTASSIUM CL 40 MEQ/30 ML LIQ UDC PO/TUBE PRN (00:40)
[2016-06-08] MEDS: CHLORHEXIDINE GLUCONATE 2 % 1 PACK (2 CLOTHS) TOP SCH (02:10)
[2016-06-08] MEDS: RESP: ALBUTEROL 2.5 MG/IPRATROPIUM 0.5 MG NEB (SCH) NEB ×4 (03:31→22:23)
[2016-06-08] MEDS: SODIUM CHLOR 0.9% 1000 ML INJ 1,000 ML IV SCH ×2 (04:22→17:08)
[2016-06-08 05:48] LABS: AUTOMATED NEUTROPHIL # 7.9 TH/MM3 (1.8-7.7); BASOPHIL % 0.5 % (0.0-2.0); EOSINOPHIL % 0.3 % (0.0-4.0); HEMATOCRIT 26.2 % (35.0-46.0); HEMO FLAGS DIFF FINAL; LYMPH % 8.4 % (9.0-44.0); LYMPHOCYTE # 0.8 TH/MM3 (1.0-4.8); MEAN CELL VOLUME 89.7 FL (80.0-100.0); MEAN CORPUSCULAR HEMOGLOBIN 31.3 PG (27.0-34.0); MEAN CORPUSCULAR HGB CONC 34.9 % (32.0-36.0); MONO % 3.8 % (0.0-8.0); PLATELET COUNT 343 TH/MM3 (150-450); RED BLOOD COUNT 2.92 MIL/MM3 (4.00-5.30); RED CELL DISTRIBUTION WIDTH 13.4 % (11.6-17.2); WHITE BLOOD COUNT 9.1 TH/MM3 (4.0-11.0)
[2016-06-08] MEDS: INSULIN NovoLIN REGULAR SUPPLEMENTAL SCALE SQ SCH ×4 (06:00→17:54)
[2016-06-08 06:06] LABS: BICARBONATE 22.4 MEQ/L (21.0-32.0); MAGNESIUM 2.2 MG/DL (1.5-2.5); POTASSIUM 3.5 MEQ/L (3.5-5.1)
[2016-06-08 06:08] LABS: INDIRECT BILIRUBIN 0.3 MG/DL (0.0-0.8); TOTAL BILIRUBIN ADULT 0.5 MG/DL (0.2-1.0)
[2016-06-08 06:45] LABS: CALCIUM-PROTEIN CORRECTED 8.6 MG/DL (8.5-10.1)
[2016-06-08] MEDS: DOCUSATE SODIUM 100 MG/10 ML UDC G-TUBE SCH ×2 (08:45→20:45)
[2016-06-08] MEDS: POLYETHYLENE GLYCOL 17 GM PKG PO SCH ×2 (09:00→21:06)
[2016-06-08] MEDS: ARTIFICIAL TEARS OPTH SOLN 15 ML BTL EACH EYE SCH ×3 (09:00→17:08)
[2016-06-08] MEDS: SENNOSIDES SYRUP 8.8 MG/5 ML CUP PO/TUBE SCH ×2 (09:00→21:00)
[2016-06-08] MEDS: SODIUM CHLORIDE 0.9% FLUSH 5 ML FLUSH IV FLUSH SCH ×2 (09:00→20:55)
[2016-06-08] MEDS: levETIRAcetam 1000 MG INJ 100 ML IV SCH ×2 (09:17→20:55)
[2016-06-08] MEDS: FAMOTIDINE 20 MG/2 ML VIAL IV PUSH SCH ×2 (09:19→20:53)
[2016-06-08] MEDS: FOSPHENYTOIN SODIUM 100 MG PE/2 ML VIAL IV SCH ×2 (09:19→20:54)
[2016-06-08 10:13] LABS: BLOOD GAS BASE EXCESS -2.5 mmol/L (-2-2); BLOOD GAS HCO3 20 mmol/L (22-26); BLOOD GAS METHEMOGLOBIN 0.8 % (0-2); BLOOD GAS O2 HGB SATURATION 93 % (90-100); BLOOD GAS OXYGEN CONTENT 18.4 Vol % (12.0-20.0); BLOOD GAS PCO2 23 mmHg (38-42); BLOOD GAS PO2 71 mmHg (61-120); BLOOD GAS TOTAL HGB 14.1 G/DL (12.0-16.0); TEMP CORR TO 98.6
[2016-06-08 10:14] LABS: CRITICAL VALUE YES; DRAW SITE ART LINE; FIO2 100 %; OXYGEN DEVICE VENTILATOR; STAT YES
--- NOTE | 2016-06-08 10:37 | RADRPT ---
EXAM DATE/TIME: 06/08/2016 10:17 [facility] COMPARISON: CHEST SINGLE AP, June 04, 2016, 3:24. INDICATIONS : Shortness of breath. MEDICAL HISTORY : Hypertension. Cerebrovascular disease. Atrial fibrillation. SURGICAL HISTORY : None. ENCOUNTER: Initial ACUITY: 1 day PAIN SCORE: Non-responsive. LOCATION: Bilateral chest FINDINGS: Worsening basilar consolidation and pleural effusions. Pleural effusions are now probably moderate in size. There is mild cardiomegaly, slightly worse. I don't see a pneumothorax. Endotracheal tube tip is about 2 cm above the kwan. There is a nasogastric tube coursing into the s tomach. CONCLUSION: Worsening consolidation and effusions at both bases. A component of failure is likely. There is mild cardiomegaly. Lauro Logan MD on June 08, 2016 at 10:35 Board Certified Radiologist. This report was verified electronically.
--- NOTE | 2016-06-08 10:47 | HHI.CCPN ---
Subjective Remarks/Hospital Course Hospital Course: 66 years old female was transferred to [facility] from [facility] in [place]. Patient and her was vacationing from [place]. They aware on the train while at around 2:00 patient started having severe headache and then vomited and then had a syncopal episode. Patient was transported to [facility] in [place]. On the way to the hospital, patient started having respiratory problem and patient was subsequently intubated. Patient has history of atrial fibrillation and hypertension and on Xarelto 20 mg daily, atorvastatin, HCTZ/ losartan, metoprolol. CT scan of the brain done at [facility] in [place] shows diffuse subarachnoid hemorrhage with intraventricular extension and early obstructive hydrocephalus developing. Dr. Mtz, neurosurgeon at [place] was contacted and accepted transfer. 05/28: slight improvements, withdrawing to deep nailbed pressure. on cardene for hypertension. plan for angio today or tomorrow. 05/29: worsening neuro exam overnight. repeat head CT with effacement, slight compression of the brainstem. angiogram overnight without evidence of aneurysm or vasospasm. more hypotensive this morning on norepinephrine. flaccid x 4, no cough or gag. propofol turned off at 0600. 05/30: EEG with evidence of seizures. Keppra increased yesterday and Cerebryx loaded. this morning, on increasing vasopressor requirements. added phenylephrine on top of maximal levophed, vasopressin. echo with prelim hyperdynamic biventricular function. ICP stable. poor neurologic function. posturing in UEs. 05/31: vasopressors weaned overnight significantly, but remains on some support. repeat EEG improved with no evidence of ongoing ictal activity. ICP stable. this morning, no longer following commands in LEs, no longer posturing in upper extremities. discussed care with Dr. Mtz, will plan to go to CT/CTA brain to r /o vasospasm.06/01: CTA yesterday without evidence of vasospasm. TCDs negative today for vasospasm. still will intermittently follow commands in LEs, nothing in upper extremities. Na still very high, 160s. ICP well controlled. off vasopressors. 06/02: Na coming down slowly. TCDs pending for today. neuro exam stable. phenytoin level borderline high. 06/03: Tmax 100.4. Currently 99.1. Tolerating tube feeds at goal. Positive BM. Neuro exam remains stable. 3/6: Remains sedated, orally intubated on mechanical ventilation. Ventriculostomy in place. Cardene drip at 1 mg/h 06/05: Remains sedated, orally intubated on mechanical ventilation. Ventriculostomy in place. 38: AM laboratories currently pending. Afebrile. Noted cerebral angiogram without signs of vasospasm. 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 Dr. Mtz recommends per contains tracheostomy per RN. Tolerating tube feeding. 06/07: Tmax 99.5. Currently afebrile. Plan for cutaneous tracheostomy today. Ordered for PEG tube for a.m. Neurological unchanged with extension lower extremities flaccid upper extremities. Subjective: 06/08: Tmax 100.8. This morning with acute episode acutely desaturated. Chest X-ray shows bilateral lower lobe infiltrates/pleural effusions. +600 cc past 24 hours. No bowel movement since 06/05. Status post PEG tube yesterday without complication. Objective Vital Signs Date Time Temp Pulse Resp B/P Pulse Ox O2 Delivery O2 Flow Rate FiO2 06/08/16 10:23 97 100 06/08/16 06:00 105 06/08/16 04:00 100.8 26 152/62 Intake and Output 06/07/16 06/07/16 06/08/16 08:00 16:00 00:00 Intake Total 955 ml 1526 ml 1483 ml Output Total 1040 ml 2170 ml 803 ml Balance -85 ml -644 ml 680 ml Result Diagram: 06/08/16 0515 06/08/16 0515 Imaging Last Impressions Transcranial Doppler Study Complete 06/07/16 0215 Signed Impressions: Service Date/Time: May 07:36 - CONCLUSION: No evidence of significant vasospasm. Riley Roman MD Cerebral Arteriogram 06/05/16 0000 Signed Impressions: Service Date/Time: Sunday, June 05, 2016 00:00 - CONCLUSION: 1. No evidence of aneurysm 2. 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 Stable bibasilar airspace disease, left greater than right with probable associated left-sided effusion. 2. Stable position of life support tubes. Immanuel Nix MD Cervical Spine MRI 06/01/16 0000 Signed Impressions: Service Date/Time: Wednesday, June 01, 2016 12:14 - CONCLUSION: Large amount of blood in the subarachnoid space. I do not see a mass. Etiology for the hemorrhage is not apparent. Dillon Zaragoza MD FACR Brain MRI 06/01/16 0000 Signed Impressions: Service Date/Time: Wednesday, June 01, 2016 12:14 - CONCLUSION: 1. Intraventricular blood, negative for mass. Dillon Zaragoza MD FACR Head CTA 05/31/16 0000 Signed Impressions: Service Date/Time: May 10:44 - CONCLUSION: 1. No evidence of vasospasm Brandon Herrera MD Head CT 05/31/16 0000 Signed Impressions: Service Date/Time: May 10:44 - CONCLUSION: Extensive subarachnoid hemorrhage including significant hemorrhage in the foramen magnum similar to the 05/29/16 exam. The ventricles do appear to be larger today with significant intraventricular hemorrhage present. Ventriculostomy catheter in good position. David Spencer MD Objective Remarks GENERAL: 66 year old female, critically ill currently orotracheally intubated SKIN: Warm and dry. No rash HEAD: Status post right frontal daquan hole ventriculostomy EYES: PERRL. Around 5 mm bilaterally. Left sometimes 4 cm/ less than right. No scleral icterus. No injection or drainage. NECK: Supple, trachea midline. No JVD or lymphadenopathy. CARDIOVASCULAR: RRR. S1, S2 no sore. Without murmur RESPIRATORY: Breath sounds diminished in the bases bilaterally. Decreased air sounds anteriorly bilaterally. No wheezing. GASTROINTESTINAL: Abdomen soft, non-tender, nondistended. PEG tube site is clean dry and intact. Positive bowel sounds appreciated MUSCULOSKELETAL: With trace lower extremity edema Neuro: Currently no significant movement in uppers extremities, weakly withdrawals in her bilateral LEs. A/P Problem List: (1) Subarachnoid hemorrhage ICD Code: I60.9 Status: Acute (2) Atrial fibrillation ICD Code: I48.91 Status: Acute (3) Coagulopathy ICD Code: D68.9 Status: Acute (4) Respiratory failure ICD Code: J96.90 Status: Acute (5) Hypertension ICD Code: I10 Status: Acute Assessment and Plan Neuro/Psych: Spontaneous subarachnoid bleed Intracranial hypertension Status post right daquan hole ventriculostomy Malignant cerebral edema Seizures CT head revealed subarachnoid hemorrhage/brainstem right greater than left and intraventricular hemorrhage on the third ventricle/foramen of Monro and lateral ventricle MRI/A revealed no mass/source of bleeding EEG 05/31 revealed moderate encephalopathy. No epileptiform activity q1h neuro checks Nimodipine 60 mg every 4 hours for 21 days Four-vessel angiogram 05/29 negative for aneurysm of vasospasm. No FMD - unable to access left vertebral artery off sedation, as long as ICPs are controlled --s/p 3% nacl. slowly normalizing Na, eventual goal Na 140 - 145. hold free water --Keppra 1000 twice a day and Dilantin 100mg iv q12h. recheck phenytoin level 06/05 was 7.8 --Dr. Mtz: neurosurgery -- CT/CTA 05/31: no evidence of vasospasm. -- daily TCDs, so far negative for vasospasm. --Negative cerebral angio to confirm 06/06. Respiratory: Acute Hypoxic and hypercarbic respiratory failure PRVC ventilation 14/450/1/5/100 Vent bundle -- Duo nebs every 6 hours As needed bronchodilator therapy Head of bed elevated Wean FiO2 for goal SPO2 greater than 92% Does not meet SBT criteria given mental status. CTA chest currently pending. Blood gases reveals acute respiratory alkalosis Cardiovascular: Severe vasoplegia/Distributive Shock- resolving. History of hypertension Dyslipidemia History fibrillation/chronic Off vasopressors. without evidence of vasospasm, as long as CPP is maintained, will relax bp goals to SBP 120 - 180. Cardene drip if needed Nimodipine 60 mg every 4 Home medications are losartan/HCTZ 100/12.5 daily and metoprolol 25 mg twice a day. This is currently been held. Resume when clinically indicated Patient's current Pravachol 40 mg by mouth daily/hospital substitution for atorvastatin 20 mg at night anemia Echocardiogram 05/31 revealed EF 65%. Moderate TR. POLO 54 mm Hg Renal: Parker for strict I's and O's -- Strict I/Os Avoid hypovolemia FEN/GI: Hypernatremia - resolving Acute protein calorie malnutrition- mild Hypokalemia Maintenance fluids normal saline. Avoid hypovolemia tube feeds, Jevity 1.5, goal 50 cc an hour -Pepcid twice a day for GI prophylaxis - Colace/Senokot for bowel regimen ICU electrolyte protocol Daily BMP Heme/ID: Coagulopathy secondary to Xarelto anticoagulation use for atrial fibrillation- resolved. Leukocytosis Daily CBC Status post K Centra Does not meet transfusion triggers at this time --holding Eliquis given SAH. Endocrine: Hyperglycemia of critical illness -- SSI, every 6 hours, medium scale Prophylaxis: GI Prophylaxis Pepcid iv q12h. DVT Prophylaxis -- SCDs Holding pharmacologic DVT prophylaxis given intracranial hemorrhage Lines: 05/27 right IJ triple lumen catheter removed 06/06. Currently PIV Parker EVD Critical Care: The total critical care time was 35 minutes. Time to perform other separately billable procedures was not included in the critical care time. Edd Crow MD Jun 08, 2016 10:47
[2016-06-08] MEDS ORDERED: IOHEXOL 350 MG/ML 10 ML VIAL (for RAD DIAG) IV ONE (12:01)
--- NOTE | 2016-06-08 12:20 | RADRPT ---
EXAM DATE/TIME: 06/08/2016 07:52 [facility] COMPARISON: US TRANSCRANIAL DOPPLER COMPLETE, June 07, 2016, 7:36. INDICATIONS : Subarachnoid hemorrhage. MEDICAL HISTORY : Cerebrovascular disease. Hypercholesterolemia. Hypertension. Subarachnoid hemorrhage. Syncope. A-Fib. Hydrocephalus. SURGICAL HISTORY : Right frontal Sb hole with ventriculostomy drain. ENCOUNTER: [facility] ACUITY: 1 week PAIN SCORE: Nonresponsive. LOCATION: Bilateral cranial RIGHT: LEFT: Current Exam: Jun 08, 2016 [place] Ratio: 2.9 2.2 [place] Ratio: 1.8 0.8 Previous Exam: Jun 07, 2016 [place] Ratio: 1.2 2.2 [place] Ratio: 0.5 1.2 FINDINGS: Examination performed at bedside. Real-time ultrasound with the assistance of color and spectral Dop pler was utilized to evaluate the intracerebral circulation. Time-averaged maximal velocities are ca lculated in cm/s. The left posterior sural artery is not optimally visualized. Mean flow velocities and ratios are with in normal limits. CONCLUSION: There are no findings to indicate vasospasm. Lauro Lamb MD on June 08, 2016 at 12:16 Board Certified Radiologist. This report was verified electronically.
--- NOTE | 2016-06-08 12:27 | RADRPT ---
EXAM DATE/TIME: 06/08/2016 11:54 [facility] COMPARISON: CT PULMONARY ANGIOGRAM, June 08, 2016, 11:54. INDICATIONS : Distension. IV CONTRAST: 65 cc Omnipaque 350 (iohexol) IV ; Cumulative dose for multiple exams. ORAL CONTRAST: No oral contrast ingested. RADIATION DOSE: 11.29 CTDIvol (mGy) MEDICAL HISTORY : Stroke. Hypertension. SURGICAL HISTORY : None. ENCOUNTER: Initial ACUITY: 1 day PAIN SCALE: Non-responsive LOCATION: abdomen. TECHNIQUE: Volumetric scanning of the abdomen and pelvis was performed. Using automated exposure control and ad justment of the mA and/or kV according to patient size, radiation dose was kept as low as reasonably achievable to obtain optimal diagnostic quality images. FINDINGS: LOWER LUNGS: There are small to moderate sized bilateral pleural effusions with associated compressive atelectasis . LIVER: Homogeneous density without lesion. There is no dilation of the biliary tree. High density material is present within the gallbladder likely related to vicarious excretion of contrast medium. SPLEEN: Normal size without lesion. PANCREAS: Within normal limits. There is trace fluid around the pancreatic tail. KIDNEYS: Normal in size and shape. There is no mass, stone or hydronephrosis. ADRENAL GLANDS: Within normal limits. VASCULAR: There is no aortic aneurysm. There is mild atherosclerotic disease. BOWEL/MESENTERY: Nasogastric tube is present within a decompressed stomach. A G-tube is also present. Small bowel is n ormal in size without abnormally dilated segments seen. There is mild distention of the colon. A smal l volume of free fluid is present within the abdomen and pelvis. There is no free intraperitoneal air . ABDOMINAL WALL: There is relatively diffuse subcutaneous edema. RETROPERITONEUM: There is no lymphadenopathy. Presacral edema is present. BLADDER: Decompressed with a Parker catheter present. REPRODUCTIVE: No abnormality is appreciated in the adnexa or with the uterus. INGUINAL: There is no lymphadenopathy or hernia. MUSCULOSKELETAL: There are degenerative changes of the lumbar spine. No acute osseous abnormality is visualized. CONCLUSION: 1. There is mild distention of the colon but there are no findings to indicate bowel obstruction. A s mall volume of free fluid is present within the abdomen and pelvis. 2. Anasarca along with a presacral edema. 3. Small to moderate-sized bilateral pleural effusions with associated compressive atelectasis. Lauro Lamb MD on June 08, 2016 at 12:19 Board Certified Radiologist. This report was verified electronically.
--- NOTE | 2016-06-08 12:37 | RADRPT ---
EXAM DATE/TIME: 06/08/2016 11:54 [facility] COMPARISON: No previous studies available for comparison. INDICATIONS : Respiratory distress. IV CONTRAST: 65 cc Omnipaque 350 (iohexol) IV ; Cumulative dose for multiple exams. RADIATION DOSE: 1.25 CTDIvol (mGy) MEDICAL HISTORY : Stroke. Hypertension. SURGICAL HISTORY : None. ENCOUNTER: Initial ACUITY: 1 day PAIN SCALE: Non-responsive LOCATION: chest TECHNIQUE: Volumetric scanning of the chest was performed using a pulmonary embolism protocol MIP images were re constructed. Using automated exposure control and adjustment of the mA and/or kV according to patien t size, radiation dose was kept as low as reasonably achievable to obtain optimal diagnostic quality images. FINDINGS: There is no pulmonary embolus. Patient has mildly prominent caliber left pulmonary artery, sometimes seen as a jet phenomena from pulmonic stenosis but I don't see any enlargement of the right heart. Moderate bilateral pleural effusions are present and each with associated dependent/compressive consolidation of the lower lobes. There is no pneumothorax. No mediastinal, hilar or axillary lymphadenopathy demonstrated. Endotracheal tube tip is about 3 cm above the kwan. There is a nasogastric tube coursing into the stomach. CONCLUSION: 1. Bilateral pleural effusions with compressive atelectasis. 2. No pulmonary embolus. Lauro Logan MD on June 08, 2016 at 12:32 Board Certified Radiologist. This report was verified electronically.
--- NOTE | 2016-06-08 13:08 | HHI.NSPN ---
(Allison Mccullough) Note Status Status: Progress Note (Allison Mccullough) Interval History Interval History This is a 66 years old female was transferred to [facility] from [facility] for a subarachnoid hemorrhage. The patient and the was vacationing from [place]. They were on the train. Patient's states that around 2:00 this afternoon she suddenly developed severe headache and then vomited, and then had a syncopal episode. The train stopped. EMS was called. EMS personnel state that patient had altered status was able to follow commands and beginning without focal neurological deficit. No seizure activity. No tongue bitting. No tonic clonic movements. no incontinence of stool or urine. She was transported to [facility] in [place]. On the way to the hospital, she developed respiratory problem and patient was subsequently endotracheally intubated. She has history of atrial fibrillation and hypertension and was anticoagulated with Xarelto 20 mg daily. In addition she takes atorvastatin, HCTZ/ losartan, metoprolol. CT scan of the brain done at [facility] in [place] shows extensive subarachnoid and intraventricular hemorrhage with early obstructive hydrocephalus developing. She was placed given propofol and Cardene drip. Cardene drip and propofol was stopped secondary to hypotension on the way to the ED. Neurosurgical consultation was requested 05/28: intubated and sedated, s/p placement of ventriculostomy drain. CTA Brain neg for aneurysm, for cerebral angiography today, 05/29: seen this am during am round, withdrawing in the lower extremities, did not open eyes or follow commands for me, was reported to have followed with nursing. Cerebral angiography yesterday was neg for aneurysm. Then sergei Mario , patient having seizures, and posturing. ICPs has been 8-10, nursing reports EVD draining, CSF blood tinged. Transcranial doppler early this am negative for vasospasm 3/1: extends in uppers, withdraws in LEs 3/2: minimal withdrawals in the lower extremities, and extension. f/u CT Brain shows increased ventriculomegaly. CTA Head unremarkable for intracranial aneurysm. f/u EEG reports severe encephalopathy. ICPs at highest 8 overnight. 06/01: this morning slightly wiggled toes to command. ICPs below 5, EVD draining blood tinged CSF. 06/04: slightly opening eyes, EVD draining dark red CSF at 10 cm H20, ICPs at highest 8 overnight. 06/05: ICPs stable overnight, opening eyes. No reports of seizure like activities overnight. EVD continues to drain well. 06/06: cerebral angio completed yesterday, otherwise no neuro changes overnight. EVD draining, with stable ICPs. 06/07: opens eyes to pain stim, withdraws LE's, CSF dark red with stable ICPs 06/08: intubated, moderate eye opening, not tracking, not following commands. ( Allison Mccullough) Labs, Micro, & Vital Signs Results Date Time Temp Pulse Resp B/P Pulse Ox O2 Delivery O2 Flow Rate FiO2 06/08/16 12:30 99 100 06/08/16 10:23 97 100 06/08/16 08:20 96 65 06/08/16 06:00 105 06/08/16 04:22 93 55 06/08/16 04:00 100.8 106 26 152/62 95 06/08/16 04:00 50 06/08/16 04:00 106 06/08/16 02:00 107 06/08/16 01:07 94 55 06/08/16 00:00 50 06/08/16 00:00 108 06/08/16 00:00 100.6 108 23 138/58 95 06/07/16 22:00 104 06/07/16 20:00 100.8 108 25 134/54 100 06/07/16 20:00 113 06/07/16 20:00 50 06/07/16 19:10 100 100 06/07/16 18:00 108 06/07/16 16:05 100 100 06/07/16 16:00 105 06/07/16 16:00 50 06/07/16 16:00 100.8 105 22 139/52 99 06/07/16 14:00 111 06/07/16 13:57 97 100 06/08/16 07:00 Intake Total 4451 ml Output Total 3825 ml Balance 626 ml Constitutional Vital Signs Date Time Temp Pulse Resp B/P Pulse Ox O2 Delivery O2 Flow Rate FiO2 06/08/16 12:30 99 100 06/08/16 10:23 97 100 06/08/16 08:20 96 65 06/08/16 06:00 105 06/08/16 04:22 93 55 06/08/16 04:00 100.8 106 26 152/62 95 06/08/16 04:00 50 06/08/16 04:00 106 06/08/16 02:00 107 06/08/16 01:07 94 55 06/08/16 00:00 50 06/08/16 00:00 108 06/08/16 00:00 100.6 108 23 138/58 95 06/07/16 22:00 104 06/07/16 20:00 100.8 108 25 134/54 100 06/07/16 20:00 113 06/07/16 20:00 50 06/07/16 19:10 100 100 06/07/16 18:00 108 06/07/16 16:05 100 100 06/07/16 16:00 105 06/07/16 16:00 50 06/07/16 16:00 100.8 105 22 139/52 99 06/07/16 14:00 111 06/07/16 13:57 97 100 06/08/16 07:00 Intake Total 4451 ml Output Total 3825 ml Balance 626 ml (Allison Mccullough) Review of Systems/Exam Exam Ms. Michaels is intubated. Moderate eye opening to sternal rub, did not follow commands. Right ventriculostomy drain at 10 cm H20, draining well, dark red CSF, ICPs within normal limits Cranial Nerves: Pupils 4 mm b/l reactive to 3 mm. There is response to visual threat. Sensorimotor: no spontaneous movements seen, withdraws lower extremities to local stimuli, no withdrawals in the UE to pain stimuli Plantars equivocal. Cerebellar: cannot assess Corneal reflexes present bilaterally. (Allison Mccullough) Exam Ms. Michaels is intubated. eye opening to sternal rub, she does not follow commands. Right ventriculostomy drain at 10 cm H20, draining well, dark red CSF, ICPs within normal limits Cranial Nerves: Pupils 4 mm b/l reactive to 3 mm. She responds to visual threat. Sensorimotor: no spontaneous movements seen, withdraws lower extremities to local stimuli, no withdrawals in the UE to pain stimuli Plantars equivocal. Cerebellar: cannot assess due to her condition (Arcenio Mtz MD) Medications Current Medications Current Medications Medications (Trade) Dose Ordered Sig/Jerry Route PRN Reason Start Time Stop Time Status Last Admin Dose Admin Propofol 100 ml @ 0 mls/hr TITRATE IV 05/27/16 19:45 05/28/16 23:16 Sodium Chloride (NS 1000 ml Inj) 1,000 ml @ 75 mls/hr [id number] IV 05/27/16 21:00 06/08/16 04:22 IV Flush (NS Flush) 2 ml UNSCH PRN IV FLUSH FLUSH AFTER USING IV ACCESS 05/27/16 20:45 05/27/16 22:30 IV Flush (NS Flush) 2 ml BID IV FLUSH 05/27/16 21:00 06/07/16 19:59 Acetaminophen (Tylenol) 650 mg Q6H PRN PO PAIN 1-10 AND/OR FEVER >101F 05/27/16 20:45 06/07/16 17:14 Famotidine (Pepcid Inj) 20 mg Q12HR IV PUSH 05/27/16 21:00 06/08/16 09:19 Artificial Tears (Tears Naturale Opth Soln) 1 drop TID EACH EYE 05/28/16 09:00 06/08/16 09:00 Ondansetron HCl (Zofran Inj) 4 mg Q6H PRN IV NAUSEA OR VOMITING 05/27/16 20:45 Docusate Sodium (Colace Liq) 100 mg Q12H G-TUBE 05/27/16 20:45 06/07/16 19:58 Miscellaneous Information 1 [id number] XX 05/27/16 20:45 05/27/16 20:45 Chlorhexidine Gluconate (Chlorhexidine 2% Cloth) Taper DAILY@04 TOP 05/28/16 04:00 05/24/17 03:59 06/07/16 04:00 Chlorhexidine Gluconate 3 pack 3 pack UNSCH PRN TOP HYGIENIC CARE 05/27/16 20:45 Nicardipine HCl/ Sodium Chloride (Cardene Inj/NS 250 ml Inj) 260 ml @ 0 mls/hr TITRATE IV 05/27/16 21:00 06/08/16 12:53 Nimodipine (Nimotop) 60 mg Q4HR PO 05/28/16 00:00 06/08/16 09:21 Pravastatin Sodium 40 mg 40 mg HS PO 05/27/16 21:00 06/07/16 19:58 Levetriacetam 100 ml @ 400 mls/hr Q12HR IV 05/28/16 09:00 06/08/16 09:17 Potassium Chloride 100 ml @ 50 mls/hr Q2H PRN IV For Potassium 2.8 - 3.2 mEq/L 05/28/16 01:45 06/04/16 13:40 Potassium Chloride (KCl 20 Meq Premix Inj) 100 ml @ 50 mls/hr Q2H PRN IV For Potassium 2.8 - 3.2 mEq/L 05/28/16 01:45 06/07/16 05:34 Potassium Chloride 40 meq 40 meq UNSCH PRN PO/TUBE For Potassium 3.3 - 3.5 mEq/L 05/28/16 01:45 06/08/16 00:40 Potassium Chloride 100 ml @ 25 mls/hr UNSCH PRN IV For Potassium 3.3 - 3.5 mEq/L 05/28/16 01:45 05/30/16 18:33 Potassium Chloride 100 ml @ 50 mls/hr Q2H PRN IV For Potassium 3.3 - 3.5 mEq/L 05/28/16 01:45 06/02/16 08:34 Magnesium Sulfate/ Sodium Chloride (Magnesium Sulfate Inj/NS Inj) 100 ml @ 50 mls/hr UNSCH PRN IV For Magnesium 0.9 - 1.1 mg/dL 05/28/16 01:45 Magnesium Oxide 800 mg 800 mg UNSCH PRN PO For Magnesium 1.2 - 1.6 mg/dL 05/28/16 01:45 Magnesium Sulfate/ Sodium Chloride (Magnesium Sulfate Inj/NS Inj) 100 ml @ 50 mls/hr UNSCH PRN IV For Magnesium 1.2 - 1.6 mg/dL 05/28/16 01:45 06/04/16 13:40 Potassium Phosphate 2000 mg 2,000 mg Q4H PRN PO For Phosphorus < 2.5 mg/dL 05/28/16 01:45 Sodium Phosphate/ Sodium Chloride (Sodium Phosphate Inj/NS 250 ml Inj) 250 ml @ 42 mls/hr UNSCH PRN IV For Phosphorus < 2.5 mg/dL 05/28/16 01:45 05/28/16 06:34 Potassium Chloride (KCl 40 Meq/30 ml Liq) 40 meq UNSCH PRN PO/TUBE SEE LABEL COMMENTS 05/28/16 01:45 06/03/16 05:31 Potassium Phosphate 2000 mg 2,000 mg UNSCH PRN PO/TUBE SEE LABEL COMMENTS 05/28/16 01:45 Potassium Phosphate/Sodium Chloride (Potassium Phosphate Inj/NS 250 ml Inj) 260 ml @ 42 mls/hr UNSCH PRN IV SEE LABEL COMMENTS 05/28/16 01:45 Dextrose (D50w (Vial) Inj) 25 ml UNSCH PRN IV PUSH HYPOGLYCEMIA-SEE COMMENTS 05/29/16 07:30 Insulin Human Regular (NovoLIN R SUPPLEMENTAL SCALE) 1 Q6HR SQ 05/29/16 12:00 06/06/16 23:12 Fosphenytoin Sodium (Cerebyx Inj) 100 mgpe Q12HR IV 06/02/16 09:00 06/08/16 09:19 Sennosides (Senna Liq) 8.8 mg BID PO/TUBE 06/07/16 09:00 06/07/16 19:58 Glycerin (Glycerin Adult Supp) 2 gm BID PRN RECTAL CONSTIPATION 06/07/16 09:00 Polyethylene Glycol (Miralax) 17 gm BID PO 06/08/16 21:00 (Allison Mccullough) Medical Decision Making MDM Remarks 66 y/o female with subarachnoid hemorrhage suspected intracranial aneurysm, placement of ventriculostomy drain, ICPs remains within normal range CTA Head x 2 negative for aneurysm, Cerebral angiography neg for aneurysm, repeat cerebral angio 06/05/16 again neg for intracranial aneurysm MRI Brain and C spine without mass lesions (Allison Mccullough) Plan Plan Remarks cont EVD draining at 10 cm H20, cont icp monitoring cont serial neuro checks continue follow up neuro exam clear for tracheostomy and PEG placement (Allison Mccullough) Attending Statement Continue neuro checks in a serial fashion. follow-up CT and CTA, and there is no clear evidence of an aneurysm Daily follow-up TCDs. Follow-up angiography was normal Continue CSF drainage via ventriculostomy Respiratory. Continue mechanical ventilation in assist contyrol mode of mechanical ventilation, pulmonary toilette, nasotracheal suction, and breathing treatments with nebulizers. Hypertension As needed Cardene to maintain systolic blood pressure less than 150. PT and OT eval Nutrition. tube feedings Renal. Continue to monitor closely urine output, BUN and creatinine Endocrine. Continue to Monitor serial Acu checks and SSI for tight control ID continue to monitor for signs of infection Continue Protonix for stress ulcer prophylaxis Continue Julio hose and SCD's for DVT prophylaxis Discussed with her The exam, history, and the medical decision-making described in the above note were completed with the assistance of the mid-level provider. I reviewed and agree with the findings presented. I attest that I had a [id number] encounter with the patient on the same day, and personally performed and documented my assessment and findings in the medical record. (Arcenio Mtz MD) Allison Mccullough Jun 08, 2016 13:08 Arcenio Mtz MD Jun 09, 2016 17:28
[2016-06-08] MEDS ORDERED: BUMETANIDE INJ 1 MG/4 ML VIAL IV PUSH ONE (13:45)
[2016-06-08] MEDS ORDERED: NOREPINEPHRINE 4 MG/4 ML AMP ONE (15:27)
--- NOTE | 2016-06-08 15:52 | RADRPT ---
EXAM DATE/TIME: 06/08/2016 14:00 [facility] COMPARISON: No previous studies available for comparison. INDICATIONS : Increased lab values. MEDICAL HISTORY : Cerebrovascular disease. Hypercholesterolemia. Hypertension. Subarachnoid hemorrhage. Syncope. A-Fib. Hydrocephalus. SURGICAL HISTORY : Right frontal [place] hole with ventriculostomy drain. ENCOUNTER: Initial ACUITY: 1 day PAIN SCORE: Nonresponsive. LOCATION: Abdomen. MEASUREMENTS: LIVER: 16.3 cm length COMMON DUCT: 2 mm RIGHT KIDNEY: 9.5 x 4.8 x 6.6 cm SPLEEN: 8.1 cm length FINDINGS: LIVER: Normal echotexture without focal lesion or ductal dilatation. There is normal flow velocity and direc tion in the main portal vein. COMMON DUCT: No intraluminal mass or stone visualized. GALLBLADDER: Contains no stones, demonstrates no wall thickening or pericholecystic fluid. PANCREAS: The visualized portions are within normal limits. RIGHT KIDNEY: No hydronephrosis, stone or mass. SPLEEN: No focal lesion. CONCLUSION: Ultrasound appearance of the liver and surrounding structures within normal limits. Lauro Logan MD on June 08, 2016 at 15:49 Board Certified Radiologist. This report was verified electronically.
--- NOTE | 2016-06-08 15:54 | PD.PROCEDR ---
Procedure Note Procedure Procedure: Fiberoptic Bronchoscopy was diagnostic therapy for bilateral lower lobe lung collapse Diagnosis/Indication: Respiratory failure, history of subarachnoid hemorrhage with acute hypoxemia Consent: Informed consent obtained and a time out performed Anesthesia: Total 5 mg IV Versed and 50 g fentanyl IV for sedation/analgesia. Neuromuscular paralysis with rocuronium 50 mg IV 1 Description of the Procedure: The patient was sedated and mechanically ventilated, was placed on 100% FIO2 and PRVC mode of ventilation. I entered this 7.5 ET tube the fiberoptic bronchoscope. Thick yellow secretions coated the end of the bronchial scope and had to be removed and flushed several times prior to initiation of endoscopy. The kwan was sharp. The right mainstem bronchi had a large white mucous plug distal to the right upper lobe. This was suctioned with 60 cc sterile saline and sent for appropriate samples. Mucosa was normal. Continued dissection with several boluses of sterile saline right middle lobe/right lobe to clear white thick secretions. Again these are evaluated at least the first subsegments., No bleeding was noted. I entered the left mainstem. In the lingular soft left upper lobe thick white mucous plugs were noted. These were suctioned until clearance. Bleeding was noted. Evaluated.mucosa was normal. The patient tolerated the procedure well with no hemodynamic instability or hypoxia. There were no immediate complications noted. EBL for bronchoscopy was negligible. A chest x-ray has been ordered. I personally performed the procedure. Edd Crow MD Jun 08, 2016 15:53
[2016-06-08] MEDS ORDERED: ROCURONIUM INJ 50 MG/5 ML VIAL IV ONE (16:00)
[2016-06-08] MEDS ORDERED: MIDAZOLAM HCL 5 MG/5 ML VIAL IV PUSH ONE (16:00)
--- NOTE | 2016-06-08 16:23 | RADRPT ---
EXAM DATE/TIME: 06/08/2016 16:02 [facility] COMPARISON: CHEST SINGLE AP, June 08, 2016, 10:17. INDICATIONS : Evaluate heart and lungs post bronchoscopy. MEDICAL HISTORY : None. Hypertension. Cerebrovascular disease. Atrial fibrillation SURGICAL HISTORY : None. ENCOUNTER: Subsequent ACUITY: 3 days PAIN SCORE: Non-responsive. LOCATION: chest FINDINGS: Mild bibasilar consolidation and small effusions again noted, slightly improved on the right and not significantly changed on the left. I don't see a pneumothorax on either side. Heart size stable, within normal limits. Endotracheal tube tip is about 3 cm above the kwan. Nasogastric tube courses into the stomach. CONCLUSION: 1. No pneumothorax or other acute complication seen after bronchoscopy. 2. Mild consolidation and small effusions of both bases, stable on the left and slightly improved on the right. Lauro Logan MD on June 08, 2016 at 16:20 Board Certified Radiologist. This report was verified electronically.
--- NOTE | 2016-06-08 16:59 | HHI.GIFU ---
Subjective Remarks Resting in bed. Sedated on the vent. No distress. (Gabi Denny) Objective Vitals I&O Vital Signs Date Time Temp Pulse Resp B/P Pulse Ox O2 Delivery O2 Flow Rate FiO2 06/08/16 16:00 50 06/08/16 16:00 100.0 103 20 134/58 92 06/08/16 16:00 103 06/08/16 15:40 100 100 06/08/16 14:37 100 100 06/08/16 14:00 110 06/08/16 12:30 99 100 06/08/16 12:00 114 06/08/16 12:00 100.4 114 28 148/61 94 06/08/16 12:00 50 06/08/16 10:23 97 100 06/08/16 10:00 109 06/08/16 08:20 96 65 06/08/16 08:00 94 06/08/16 08:00 100.2 105 20 144/60 94 06/08/16 08:00 50 06/08/16 06:00 105 06/08/16 04:22 93 55 06/08/16 04:00 100.8 106 26 152/62 95 06/08/16 04:00 50 06/08/16 04:00 106 06/08/16 02:00 107 06/08/16 01:07 94 55 06/08/16 00:00 50 06/08/16 00:00 108 06/08/16 00:00 100.6 108 23 138/58 95 06/07/16 22:00 104 06/07/16 20:00 100.8 108 25 134/54 100 06/07/16 20:00 113 06/07/16 20:00 50 06/07/16 19:10 100 100 06/07/16 18:00 108 I/O 06/07/16 06/07/16 06/07/16 06/08/16 06/08/16 06/08/16 07:00 15:00 23:00 07:00 15:00 23:00 Intake Total 955 ml 1526 ml 1483 ml 1442 ml 1185 ml Output Total 1040 ml 2170 ml 803 ml 852 ml 1049 ml Balance -85 ml -644 ml 680 ml 590 ml 136 ml Intake Oral 200 ml IV Total 955 ml 1526 ml 1483 ml 1292 ml 985 ml Other 150 ml Output Urine Total 1000 ml 2100 ml 750 ml 800 ml 1000 ml Stool Total 0 ml 0 ml Drainage Total 40 ml 70 ml 53 ml 52 ml 49 ml # Bowel Movements 0 0 0 Laboratory Laboratory Tests Test 06/07/16 06/08/16 06/08/16 19:21 05:15 09:59 Potassium Level 3.4 3.5 White Blood Count 9.1 Red Blood Count 2.92 Hemoglobin 9.1 Hematocrit 26.2 Mean Corpuscular Volume 89.7 Mean Corpuscular Hemoglobin 31.3 Mean Corpuscular Hemoglobin 34.9 Concent Red Cell Distribution Width 13.4 Platelet Count 343 Mean Platelet Volume 9.6 Neutrophils (%) (Auto) 87.0 Lymphocytes (%) (Auto) 8.4 Monocytes (%) (Auto) 3.8 Eosinophils (%) (Auto) 0.3 Basophils (%) (Auto) 0.5 Neutrophils # (Auto) 7.9 Lymphocytes # (Auto) 0.8 Monocytes # (Auto) 0.3 Eosinophils # (Auto) 0.0 Basophils # (Auto) 0.0 CBC Comment DIFF FINAL Differential Comment Sodium Level 135 Chloride Level 101 Carbon Dioxide Level 22.4 Anion Gap 12 Blood Urea Nitrogen 6 Creatinine 0.35 Estimat Glomerular Filtration 186 Rate Random Glucose 114 Calcium Level 7.6 Protein Corrected Calcium 8.6 Phosphorus Level 2.3 Magnesium Level 2.2 Total Bilirubin 0.5 Direct Bilirubin 0.2 Indirect Bilirubin 0.3 Aspartate Amino Transf 77 (AST/SGOT) Alanine Aminotransferase 134 (ALT/SGPT) Alkaline Phosphatase 253 Total Protein 5.4 Albumin 1.6 Blood Gas Puncture Site ART LINE Blood Gas Patient Temperature 98.6 Blood Gas HCO3 20 Blood Gas Base Excess -2.5 Blood Gas Oxygen Saturation 93 Arterial Blood pH 7.55 Arterial Blood Partial 23 Pressure CO2 Arterial Blood Partial 71 Pressure O2 Arterial Blood Oxygen Content 18.4 Arterial Blood 1.0 Carboxyhemoglobin Arterial Blood Methemoglobin 0.8 Blood Gas Hemoglobin 14.1 Oxygen Delivery Device VENTILATOR Blood Gas Ventilator Setting Blood Gas Inspired Oxygen 100 Imaging Last Impressions Transcranial Doppler Study Complete 06/08/16 0215 Signed Impressions: Service Date/Time: Wednesday, June 08, 2016 07:52 - CONCLUSION: There are no findings to indicate vasospasm. Lauro Lamb MD Liver Ultrasound 3/10/17 0000 Signed Impressions: Service Date/Time: Wednesday, June 08, 2016 14:00 - CONCLUSION: Ultrasound appearance of the liver and surrounding structures within normal limits. Lauro Logan MD Chest X-Ray 06/08/16 Signed Impressions: Service Date/Time: Wednesday, June 08, 2016 16:02 - CONCLUSION: 1. No pneumothorax or other acute complication seen after bronchoscopy. 2. Mild consolidation and small effusions of both bases, stable on the left and slightly improved on the right. Lauro Logan MD CT Angiography 06/08/16 Signed Impressions: Service Date/Time: Wednesday, June 08, 2016 11:54 - CONCLUSION: 1. Bilateral pleural effusions with compressive atelectasis. 2. No pulmonary embolus. Lauro Logan MD Abdomen/Pelvis CT 06/08/16 Signed Impressions: Service Date/Time: Wednesday, June 08, 2016 11:54 - CONCLUSION: 1. There is mild distention of the colon but there are no findings to indicate bowel obstruction. A small volume of free fluid is present within the abdomen and pelvis. 2. Anasarca along with a presacral edema. 3. Small to moderate-sized bilateral pleural effusions with associated compressive atelectasis. Lauro Lamb MD Cerebral Arteriogram 06/05/16 Signed Impressions: Service Date/Time: Sunday, June 05, 2016 00:00 - CONCLUSION: 1. No evidence of aneurysm 2. 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 I do not see a mass. Etiology for the hemorrhage is not apparent. Dillon Zaragoza MD FACR Brain MRI 06/01/16 Signed Impressions: Service Date/Time: Wednesday, June 01, 2016 12:14 - CONCLUSION: 1. Intraventricular blood, negative for mass. Dillon Zaragoza MD FACR Head CTA 05/31/16 Signed Impressions: Service Date/Time: May 10:44 - CONCLUSION: 1. No evidence of vasospasm Brandon Herrera MD Head CT 3/2/17 0000 Signed Impressions: Service Date/Time: May 10:44 - CONCLUSION: Extensive subarachnoid hemorrhage including significant hemorrhage in the foramen magnum similar to the 05/29/16 exam. The ventricles do appear to be larger today with significant intraventricular hemorrhage present. Ventriculostomy catheter in good position. David Spencer MD Physical Exam HEENT: Normocephalic; atraumatic; no jaundice. Ventriculostomy CHEST: Resp. even/unlabored. OETT to vent. CARDIAC: RRR ABDOMEN: Soft, nondistended, nontender; no hepatosplenomegaly; bowel sounds are present in all four quadrants. PEG tube site without redness or swelling EXTREMITIES: Generalized edema. SKIN: Normal; no rash; no jaundice. 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 (Gabi Denny) Assessment and Plan Plan - Dysphagia/FEN. S/P EGD with peg tube placement (06/07/16). [employer] Associate recommends Jevity 1.5 at 50cc/hr. Site without redness or swelling. - Respiratory failure. S/P bronch. - Subarachnoid hemorrhage, A-fib, per [facility] Plan: - S/P EGD with peg tube placement - Jevity 1.5 at 50cc/hr hour - GI will sign off, please reconsult as needed - Patient seen and examined by Dr. Pop and myself and this note is written on his behalf. (Gabi Denny) Physician Comments Seen and examined with LEATHER SPLITTER, s/p peg. Increase tf as needed to meet goals. Will sign off, Thank you (Geoff Pop MD) Gabi Denny Jun 08, 2016 16:59 Geoff Pop MD Jun 08, 2016 20:09
[2016-06-08] MEDS ORDERED: SODIUM CHLOR 0.9% 250 ML INJ 250 ML ONE (20:46)
[2016-06-08 20:54] LABS: BRONCHOALVEOLAR LAVAGE RBC 125 /MM3; BRONCHOALVEOLAR LAVAGE WBC 8130 /MM3; LAVAGE TOTAL WBC COUNT 317.1 MILLION (4.7-7.1)
[2016-06-08 20:56] LABS: BRONCHOAVEOLAR LYMPHOCYTES 4 %; BRONCHOAVEOLAR NEUTROPHILS 96 %
[2016-06-08] MEDS: PRAVASTATIN SOD 40 MG TAB PO SCH (21:06)
[2016-06-08] MEDS: RESP: SODIUM CHLORIDE 3% 4 ML NEB NEB SCH (22:24)
[2016-06-09] VITALS (19 sets, daily range): BP systolic 122–157; BP diastolic 60–73; PULSE 92–96; RESP 20–21; TEMP 97.9–99.9; O2SAT 96–100
[2016-06-09] MEDS: CHLORHEXIDINE GLUCONATE 2 % 1 PACK (2 CLOTHS) TOP SCH (04:00)
[2016-06-09] MEDS: niMODipine 30 MG CAP PO SCH ×7 (04:00→23:04)
[2016-06-09] MEDS: RESP: SODIUM CHLORIDE 3% 4 ML NEB NEB SCH ×4 (04:13→20:25)
[2016-06-09] MEDS: RESP: ALBUTEROL 2.5 MG/IPRATROPIUM 0.5 MG NEB (SCH) NEB ×4 (04:13→20:25)
[2016-06-09] MEDS: INSULIN NovoLIN REGULAR SUPPLEMENTAL SCALE SQ SCH ×4 (06:00→23:21)
--- NOTE | 2016-06-09 06:09 | RADRPT ---
EXAM DATE/TIME: 06/09/2016 04:24 [facility] COMPARISON: CHEST SINGLE AP, June 08, 2016, 16:02. INDICATIONS : Hypoxia. MEDICAL HISTORY : Hypertension. A-fib. SURGICAL HISTORY : None. ENCOUNTER: Subsequent ACUITY: 2 weeks PAIN SCORE: Non-responsive. LOCATION: Bilateral chest FINDINGS: ET tube tip 1.8 cm above the kwan. Interval removal of gastric tube. Hazy opacities present mid-l ower lungs bilaterally suggesting pleural effusion. There is also increased consolidation in left lo wer lung with loss of delineation of the left hemidiaphragm. The heart is normal size. The upper deja ngs are clear. CONCLUSION: Increasing consolidation left lower lung. Werner Melgar MD on June 09, 2016 at 6:06 Board Certified Radiologist. This report was verified electronically.
[2016-06-09 06:13] LABS: AUTOMATED NEUTROPHIL # 6.3 TH/MM3 (1.8-7.7); BASOPHIL % 0.3 % (0.0-2.0); EOSINOPHIL % 0.6 % (0.0-4.0); HEMATOCRIT 24.9 % (35.0-46.0); HEMO FLAGS DIFF FINAL; LYMPH % 7.7 % (9.0-44.0); LYMPHOCYTE # 0.6 TH/MM3 (1.0-4.8); MEAN CELL VOLUME 89.2 FL (80.0-100.0); MEAN CORPUSCULAR HEMOGLOBIN 31.7 PG (27.0-34.0); MEAN CORPUSCULAR HGB CONC 35.5 % (32.0-36.0); MONO % 7.4 % (0.0-8.0); PLATELET COUNT 451 TH/MM3 (150-450); RED BLOOD COUNT 2.79 MIL/MM3 (4.00-5.30); RED CELL DISTRIBUTION WIDTH 13.3 % (11.6-17.2); WHITE BLOOD COUNT 7.4 TH/MM3 (4.0-11.0)
[2016-06-09 06:29] LABS: ALT (GPT) 158 U/L (10-53); ANION GAP 11 MEQ/L (5-15); AST (GOT) 123 U/L (15-37); BICARBONATE 23.4 MEQ/L (21.0-32.0); BLOOD UREA NITROGEN 10 MG/DL (7-18); CHLORIDE 102 MEQ/L (98-107); GLOMERULAR FILTRATION RATE 180 ML/MIN (>89); MAGNESIUM 2.3 MG/DL (1.5-2.5); POTASSIUM 3.1 MEQ/L (3.5-5.1); SODIUM (NA) 136 MEQ/L (136-145)
[2016-06-09 06:32] LABS: ALKALINE PHOSPHATASE 168 U/L (45-117); TOTAL BILIRUBIN ADULT 0.4 MG/DL (0.2-1.0)
[2016-06-09] MEDS: SODIUM CHLOR 0.9% 1000 ML INJ 1,000 ML IV SCH (06:33)
[2016-06-09] MEDS: POTASSIUM CHLOR 20 MEQ PREMIX 100 ML IV PRN ×4 (06:52→15:01)
[2016-06-09] MEDS: DOCUSATE SODIUM 100 MG/10 ML UDC G-TUBE SCH ×2 (08:42→19:49)
[2016-06-09] MEDS: FOSPHENYTOIN SODIUM 100 MG PE/2 ML VIAL IV SCH ×2 (08:44→19:49)
[2016-06-09] MEDS: SODIUM CHLORIDE 0.9% FLUSH 5 ML FLUSH IV FLUSH SCH ×2 (08:44→19:50)
[2016-06-09] MEDS: levETIRAcetam 1000 MG INJ 100 ML IV SCH ×2 (08:44→19:50)
[2016-06-09] MEDS: POLYETHYLENE GLYCOL 17 GM PKG PO SCH ×2 (08:45→19:50)
[2016-06-09] MEDS: FAMOTIDINE 20 MG/2 ML VIAL IV PUSH SCH ×2 (08:45→19:49)
[2016-06-09] MEDS: SENNOSIDES SYRUP 8.8 MG/5 ML CUP PO/TUBE SCH ×2 (08:45→19:50)
[2016-06-09] MEDS: ARTIFICIAL TEARS OPTH SOLN 15 ML BTL EACH EYE SCH ×3 (08:46→17:19)
--- NOTE | 2016-06-09 10:47 | RADRPT ---
EXAM DATE/TIME: 06/09/2016 08:48 [facility] COMPARISON: US TRANSCRANIAL DOPPLER COMPLETE, May 29, 2016, 8:09. US TRANSCRANIAL DOPPLER COMPLETE, 2016, 7:58. US TRANSCRANIAL DOPPLER COMPLETE, June 08, 2016, 7:52. INDICATIONS : Subarachnoid hemorrhage. MEDICAL HISTORY : Cerebrovascular disease. Hypercholesterolemia. Hypertension. Subarachnoid hemorrhage. Syncope. A-Fib. Hydrocephalus. SURGICAL HISTORY : Right frontal [place] hole with ventriculostomy drain. ENCOUNTER: Subsequent ACUITY: 1 day PAIN SCORE: Nonresponsive. LOCATION: Bilateral cranial RIGHT: LEFT: Current Exam: Jun 09, 2016 [place] Ratio: 1.7 1.6 [place] Ratio: 0.5 0.9 Previous Exam: Jun 08, 2016 [place] Ratio: 2.9 2.2 [place] Ratio: 1.8 0.8 FINDINGS: Examination performed at bedside. Real-time ultrasound with the assistance of color and spectral Dop pler was utilized to evaluate the intracerebral circulation. Time-averaged maximal velocities are ca lculated in cm/s. There is asymmetry in the middle cerebral arteries with increased velocity on the right compared to l eft. This pattern was present previously. CONCLUSION: No evidence of vasospasm. Lauro Mcbride MD on June 09, 2016 at 10:27 Board Certified Radiologist. This report was verified electronically.
[2016-06-09] MEDS ORDERED: ROCURONIUM INJ 50 MG/5 ML VIAL IV ONE (12:45)
[2016-06-09] MEDS ORDERED: MIDAZOLAM HCL 5 MG/5 ML VIAL IV PUSH ONE (12:45)
--- NOTE | 2016-06-09 12:58 | HHI.CCPN ---
Subjective Remarks/Hospital Course Hospital Course: 66 years old female was transferred to [facility] from [facility] in [place]. Patient and her was vacationing from [place]. They aware on the train while at around 2:00 patient started having severe headache and then vomited and then had a syncopal episode. Patient was transported to [facility] in [place]. On the way to the hospital, patient started having respiratory problem and patient was subsequently intubated. Patient has history of atrial fibrillation and hypertension and on Xarelto 20 mg daily, atorvastatin, HCTZ/ losartan, metoprolol. CT scan of the brain done at [facility] in [place] shows diffuse subarachnoid hemorrhage with intraventricular extension and early obstructive hydrocephalus developing. Dr. Mtz, neurosurgeon at [facility] was contacted and accepted transfer. 05/28: slight improvements, withdrawing to deep nailbed pressure. on cardene for hypertension. plan for angio today or tomorrow. 05/29: worsening neuro exam overnight. repeat head CT with effacement, slight compression of the brainstem. angiogram overnight without evidence of aneurysm or vasospasm. more hypotensive this morning on norepinephrine. flaccid x 4, no cough or gag. propofol turned off at 0600. 05/30: EEG with evidence of seizures. Keppra increased yesterday and Cerebryx loaded. this morning, on increasing vasopressor requirements. added phenylephrine on top of maximal levophed, vasopressin. echo with prelim hyperdynamic biventricular function. ICP stable. poor neurologic function. posturing in UEs. 05/31: vasopressors weaned overnight significantly, but remains on some support. repeat EEG improved with no evidence of ongoing ictal activity. ICP stable. this morning, no longer following commands in LEs, no longer posturing in upper extremities. discussed care with Dr. Mtz, will plan to go to CT/CTA brain to r /o vasospasm.06/01: CTA yesterday without evidence of vasospasm. TCDs negative today for vasospasm. still will intermittently follow commands in LEs, nothing in upper extremities. Na still very high, 160s. ICP well controlled. off vasopressors. 06/02: Na coming down slowly. TCDs pending for today. neuro exam stable. phenytoin level borderline high. 06/03: Tmax 100.4. Currently 99.1. Tolerating tube feeds at goal. Positive BM. Neuro exam remains stable. 3/6: Remains sedated, orally intubated on mechanical ventilation. Ventriculostomy in place. Cardene drip at 1 mg/h 06/05: Remains sedated, orally intubated on mechanical ventilation. Ventriculostomy in place. 38: AM laboratories currently pending. Afebrile. Noted cerebral angiogram without signs of vasospasm. 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 Dr. Mtz recommends per contains tracheostomy per RN. Tolerating tube feeding. 06/07: Tmax 99.5. Currently afebrile. Plan for cutaneous tracheostomy today. Ordered for PEG tube for a.m. Neurological unchanged with extension lower extremities flaccid upper extremities. 06/08: Tmax 100.8. This morning with acute episode acutely desaturated. Chest X-ray shows bilateral lower lobe infiltrates/pleural effusions. +600 cc past 24 hours. No bowel movement since 06/05. Status post PEG tube yesterday without complication. Subjective: 06/09: Afebrile. Desaturate yesterday requiring bronchoscopy. Thick white secretions noted throughout right in left lobes. Actually hard yellow secretions that coated the scope required multiple washings at end of ET tube probably causing desaturation. Currently down to 55%. Plan for tracheostomy today at 3 PM. Objective Vital Signs Date Time Temp Pulse Resp B/P Pulse Ox O2 Delivery O2 Flow Rate FiO2 06/09/16 07:57 100 55 06/09/16 06:00 95 06/09/16 04:00 99.9 20 148/64 Intake and Output 06/08/16 06/08/16 06/09/16 08:00 16:00 00:00 Intake Total 1442 ml 1185 ml 664 ml Output Total 852 ml 1049 ml 1680 ml Balance 590 ml 136 ml -1016 ml Result Diagram: 06/09/16 0539 06/09/16 0539 Other Results Microbiology Date/Time Procedure Status Source Growth 06/08/16 16:50 Gram Stain - Final Resulted Bronchial Washings Right Lower Lobe 06/08/16 16:50 Bronchial Culture - Preliminary Resulted Bronchial Washings Right Lower Lobe IMMATURE GROWTH - REINCUBATE 06/08/16 16:50 Fungal Smear - Final Resulted Bronchial Washings Right Lower Lobe NO FUNGAL ELEMENTS SEEN. 06/08/16 16:50 Fungal Culture Resulted Bronchial Washings Right Lower Lobe Pending 06/08/16 16:50 Acid Fast Stain Received Bronchial Washings Right Lower Lobe Pending 06/08/16 16:50 Mycobacterial Culture Received Bronchial Washings Right Lower Lobe Pending Imaging Last Impressions Transcranial Doppler Study Complete 06/08/16 0215 Signed Impressions: Service Date/Time: Wednesday, June 08, 2016 07:52 - CONCLUSION: There are no findings to indicate vasospasm. Lauro Lamb MD Liver Ultrasound 06/08/16 Signed Impressions: Service Date/Time: Wednesday, June 08, 2016 14:00 - CONCLUSION: Ultrasound appearance of the liver and surrounding structures within normal limits. Lauro Logan MD Chest X-Ray 06/08/16 Signed Impressions: Service Date/Time: Wednesday, June 08, 2016 16:02 - CONCLUSION: 1. No pneumothorax or other acute complication seen after bronchoscopy. 2. Mild consolidation and small effusions of both bases, stable on the left and slightly improved on the right. Lauro Logan MD CT Angiography 06/08/16 Signed Impressions: Service Date/Time: Wednesday, June 08, 2016 11:54 - CONCLUSION: 1. Bilateral pleural effusions with compressive atelectasis. 2. No pulmonary embolus. Lauro Logan MD Abdomen/Pelvis CT 06/08/16 Signed Impressions: Service Date/Time: Wednesday, June 08, 2016 11:54 - CONCLUSION: 1. There is mild distention of the colon but there are no findings to indicate bowel obstruction. A small volume of free fluid is present within the abdomen and pelvis. 2. Anasarca along with a presacral edema. 3. Small to moderate-sized bilateral pleural effusions with associated compressive atelectasis. Lauro Lamb MD Cerebral Arteriogram 06/05/16 Signed Impressions: Service Date/Time: Sunday, June 05, 2016 00:00 - CONCLUSION: 1. No evidence of aneurysm 2. 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 I do not see a mass. Etiology for the hemorrhage is not apparent. Dillon Zaragoza MD FACR Brain MRI 06/01/16 0000 Signed Impressions: Service Date/Time: Wednesday, June 01, 2016 12:14 - CONCLUSION: 1. Intraventricular blood, negative for mass. Dillon Zaragoza MD FACR Head CTA 05/31/16 0000 Signed Impressions: Service Date/Time: May 10:44 - CONCLUSION: 1. No evidence of vasospasm Brandon Herrera MD Head CT 05/31/16 0000 Signed Impressions: Service Date/Time: May 10:44 - CONCLUSION: Extensive subarachnoid hemorrhage including significant hemorrhage in the foramen magnum similar to the 05/29/16 exam. The ventricles do appear to be larger today with significant intraventricular hemorrhage present. Ventriculostomy catheter in good position. David Spencer MD Objective Remarks GENERAL: 66 year old female, critically ill currently orotracheally intubated SKIN: Warm and dry. No rash HEAD: Status post right frontal daquan hole ventriculostomy EYES: PERRL. Around 5 mm bilaterally. Left sometimes 4 cm/ less than right. No scleral icterus. No injection or drainage. NECK: Supple, trachea midline. No JVD or lymphadenopathy. CARDIOVASCULAR: RRR. S1, S2 no sore. Without murmur RESPIRATORY: Breath sounds diminished in the bases bilaterally. Decreased air sounds anteriorly bilaterally. Few crackles appreciated bilaterally No wheezing. GASTROINTESTINAL: Abdomen soft, non-tender, nondistended. PEG tube site is clean dry and intact. Positive bowel sounds appreciated MUSCULOSKELETAL: With trace lower extremity edema Neuro: Currently no significant movement in uppers extremities, weakly withdrawals in her bilateral LEs. A/P Problem List: (1) Subarachnoid hemorrhage ICD Code: I60.9 Status: Acute (2) Atrial fibrillation ICD Code: I48.91 Status: Acute (3) Coagulopathy ICD Code: D68.9 Status: Acute (4) Respiratory failure ICD Code: J96.90 Status: Acute (5) Hypertension ICD Code: I10 Status: Acute Assessment and Plan Neuro/Psych: Spontaneous subarachnoid bleed Intracranial hypertension Status post right daquan hole ventriculostomy Malignant cerebral edema Seizures CT head revealed subarachnoid hemorrhage/brainstem right greater than left and intraventricular hemorrhage on the third ventricle/foramen of [place] and lateral ventricle MRI/A revealed no mass/source of bleeding EEG 05/31 revealed moderate encephalopathy. No epileptiform activity q1h neuro checks Nimodipine 60 mg every 4 hours for 21 days Four-vessel angiogram 05/29 negative for aneurysm of vasospasm. No FMD - unable to access left vertebral artery off sedation, as long as ICPs are controlled --s/p 3% nacl. slowly normalizing Na, eventual goal Na 140 - 145. hold free water --Keppra 1000 twice a day and Dilantin 100mg iv q12h. recheck phenytoin level 06/05 was 7.8. Recheck 06/10 --Dr. Mtz: neurosurgery -- CT/CTA 05/31: no evidence of vasospasm. -- daily TCDs, so far negative for vasospasm. --Negative cerebral angio to confirm 06/06. Respiratory: Acute Hypoxic and hypercarbic respiratory failure PRVC ventilation 14/500/04/05/54 Vent bundle -- Duo nebs every 6 hours As needed bronchodilator therapy Head of bed elevated Wean FiO2 for goal SPO2 greater than 92% Does not meet SBT criteria given mental status. CTA chest negative for PE. Positive bilateral lower lobe atelectasis and small to moderate bilateral pleural effusions Blood gases reveals acute respiratory alkalosis Cardiovascular: Severe vasoplegia/Distributive Shock- resolving. History of hypertension Dyslipidemia History fibrillation/chronic Off vasopressors. without evidence of vasospasm, as long as CPP is maintained, will relax bp goals to SBP 120 - 180. Cardene drip currently at 3 mg an hour Nimodipine 60 mg every 4 21 days Home medications are losartan/HCTZ 100/12.5 daily and metoprolol 25 mg twice a day. Start on losartan 25 daily/hctz 12.5 daily Coreg 6.25 twice a day. Patient's current Pravachol 40 mg by mouth daily/hospital substitution for atorvastatin 20 mg at night dyslipidemia Echocardiogram 05/31 revealed EF 65%. Moderate TR. POLO 54 mm Hg Renal: Parker for strict I's and O's -- Strict I/Os Avoid hypovolemia FEN/GI: Hypernatremia - resolving Acute protein calorie malnutrition- mild Hypokalemia Maintenance fluids normal saline. Avoid hypovolemia tube feeds, Jevity 1.5, goal 50 cc an hour -Pepcid twice a day for GI prophylaxis - Colace/Senokot for bowel regimen ICU electrolyte protocol Daily BMP Heme/ID: Coagulopathy secondary to Xarelto anticoagulation use for atrial fibrillation- resolved. Leukocytosis Daily CBC Status post K Centra Does not meet transfusion triggers at this time --holding Eliquis given SAH. Endocrine: Hyperglycemia of critical illness -- SSI, every 6 hours, medium scale Prophylaxis: GI Prophylaxis Pepcid iv q12h. DVT Prophylaxis -- SCDs Holding pharmacologic DVT prophylaxis given intracranial hemorrhage Lines: 05/27 right IJ triple lumen catheter removed 06/06. Currently PIV Parker EVD Critical Care: The total critical care time was 35 minutes. Time to perform other separately billable procedures was not included in the critical care time. Edd Crow MD Jun 09, 2016 12:58
--- NOTE | 2016-06-09 13:57 | HHI.NSPN ---
Note Status Status: Progress Note Interval History Diagnosis SAH Interval History This is a 66 years old female was transferred to [facility] from [facility] for a subarachnoid hemorrhage. The patient and the was vacationing from [place]. They were on the train. Patient's states that around 2:00 this afternoon she suddenly developed severe headache and then vomited, and then had a syncopal episode. The train stopped. EMS was called. EMS personnel state that patient had altered status was able to follow commands and beginning without focal neurological deficit. No seizure activity. No tongue bitting. No tonic clonic movements. no incontinence of stool or urine. She was transported to [facility] in [place]. On the way to the hospital, she developed respiratory problem and patient was subsequently endotracheally intubated. She has history of atrial fibrillation and hypertension and was anticoagulated with Xarelto 20 mg daily. In addition she takes atorvastatin, HCTZ/ losartan, metoprolol. CT scan of the brain done at [facility] in [place] shows extensive subarachnoid and intraventricular hemorrhage with early obstructive hydrocephalus developing. She was placed given propofol and Cardene drip. Cardene drip and propofol was stopped secondary to hypotension on the way to the ED. Neurosurgical consultation was requested 05/28: intubated and sedated, s/p placement of ventriculostomy drain. CTA Brain neg for aneurysm, for cerebral angiography today, 05/29: seen this am during am round, withdrawing in the lower extremities, did not open eyes or follow commands for me, was reported to have followed with nursing. Cerebral angiography yesterday was neg for aneurysm. Then sergei Mario , patient having seizures, and posturing. ICPs has been 8-10, nursing reports EVD draining, CSF blood tinged. Transcranial doppler early this am negative for vasospasm 3/1: extends in uppers, withdraws in LEs 3/2: minimal withdrawals in the lower extremities, and extension. f/u CT Brain shows increased ventriculomegaly. CTA Head unremarkable for intracranial aneurysm. f/u EEG reports severe encephalopathy. ICPs at highest 8 overnight. 06/01: this morning slightly wiggled toes to command. ICPs below 5, EVD draining blood tinged CSF. 06/04: slightly opening eyes, EVD draining dark red CSF at 10 cm H20, ICPs at highest 8 overnight. 06/05: ICPs stable overnight, opening eyes. No reports of seizure like activities overnight. EVD continues to drain well. 06/06: cerebral angio completed yesterday, otherwise no neuro changes overnight. EVD draining, with stable ICPs. 06/07: opens eyes to pain stim, withdraws LE's, CSF dark red with stable ICPs 06/08: intubated, moderate eye opening, not tracking, not following commands. ( Allison Mccullough) 06/09. Neurologically stable. Open eyes. Intermittently follow commands. Follow up TCD's Labs, Micro, & Vital Signs Results Date Time Temp Pulse Resp B/P Pulse Ox O2 Delivery O2 Flow Rate FiO2 06/09/16 13:08 100 55 06/09/16 07:57 100 55 06/09/16 06:00 95 06/09/16 05:26 100 55 06/09/16 04:00 95 06/09/16 04:00 99.9 92 20 148/64 100 06/09/16 04:00 60 06/09/16 02:00 95 06/09/16 00:30 99 55 06/09/16 00:00 99.1 96 20 144/60 100 06/09/16 00:00 60 06/08/16 22:28 98 55 06/08/16 22:00 100 06/08/16 20:00 60 06/08/16 20:00 99.3 100 21 140/58 99 06/08/16 20:00 100 06/08/16 18:00 95 06/08/16 17:39 98 60 06/08/16 16:00 50 06/08/16 16:00 100.0 103 20 134/58 92 06/08/16 16:00 103 06/08/16 15:40 100 100 06/08/16 14:37 100 100 06/08/16 14:00 110 06/09/16 07:00 Intake Total 2466 ml Output Total 3104 ml Balance -638 ml Constitutional Vital Signs Date Time Temp Pulse Resp B/P Pulse Ox O2 Delivery O2 Flow Rate FiO2 06/09/16 13:08 100 55 06/09/16 07:57 100 55 06/09/16 06:00 95 06/09/16 05:26 100 55 06/09/16 04:00 95 06/09/16 04:00 99.9 92 20 148/64 100 06/09/16 04:00 60 06/09/16 02:00 95 06/09/16 00:30 99 55 06/09/16 00:00 99.1 96 20 144/60 100 06/09/16 00:00 60 06/08/16 22:28 98 55 06/08/16 22:00 100 06/08/16 20:00 60 06/08/16 20:00 99.3 100 21 140/58 99 06/08/16 20:00 100 06/08/16 18:00 95 06/08/16 17:39 98 60 06/08/16 16:00 50 06/08/16 16:00 100.0 103 20 134/58 92 06/08/16 16:00 103 06/08/16 15:40 100 100 06/08/16 14:37 100 100 06/08/16 14:00 110 06/09/16 07:00 Intake Total 2466 ml Output Total 3104 ml Balance -638 ml Review of Systems/Exam Exam Ms. Michaels is intubated. eye opening to sternal rub, she does intermittently follow commands with her lower extremities. Right ventriculostomy drain at 10 cm H20, draining well, dark red CSF, ICPs within normal limits Cranial Nerves: Pupils 4 mm b/l reactive to 3 mm. She responds to visual threat. Sensorimotor: no spontaneous movements seen, withdraws lower extremities to local stimuli, no withdrawals in the UE to pain stimuli Plantars equivocal. Cerebellar: cannot assess due to her condition Medications Current Medications Current Medications Nicardipine HCl 25 mg/Sodium Chloride 260 ml @ 0 mls/hr TITRATE IV ; Start 05/27 at 19:45; Stop 05/27/16 at 20:58; Status DC Propofol 100 ml @ 0 mls/hr TITRATE IV Last administered on 05/28/16 23:16; Start 05/27/16 at 19:45 Sodium Chloride 1,000 ml @ 70 mls/hr [id number] IV Last administered on 20:07; Start 05/27/16 at 20:00; Stop 05/27/16 at 20:57; Status DC Prothrombin Complex Concent (Human) 4000 units/Syringe / Bag 0 ml @ 8 mls/min ONCE ONCE IV Last administered on 05/27/16 21:03; Start 05/27/16 at 20:45; Stop 05/27/16 at 20:46; Status DC Sodium Chloride (NS 1000 ml Inj) 1,000 ml @ 75 mls/hr [id number] IV Last administered on 06/09/16 06:33; Start 05/27/16 at 21:00; Stop 06/09/16 at 13:15 ; Status DC IV Flush (NS Flush) 2 ml UNSCH PRN IV FLUSH FLUSH AFTER USING IV ACCESS Last administered on 05/27/16 22:30; Start 05/27/16 at 20:45 IV Flush (NS Flush) 2 ml BID IV FLUSH Last administered on 06/10/16 08:45; Start 05/27/16 at 21:00 Acetaminophen (Tylenol) 650 mg Q6H PRN PO PAIN 1-10 AND/OR FEVER >101F Last administered on 06/07/16 17:14; Start 05/27/16 at 20:45 Morphine Sulfate (Morphine Inj) 2 mg Q2H PRN IV PAIN SCALE 6 TO 10; Start 05/27 at 20:45; Stop 05/29/16 at 13:33; Status DC Famotidine (Pepcid Inj) 20 mg Q12HR IV PUSH Last administered on 06/10/16 08: 45; Start 05/27/16 at 21:00 Artificial Tears (Tears Naturale Opth Soln) 1 drop TID EACH EYE Last administered on 06/10/16 16:52; Start 05/28/16 at 09:00 Ondansetron HCl (Zofran Inj) 4 mg Q6H PRN IV NAUSEA OR VOMITING; Start at 20:45 Metoclopramide HCl (Reglan Inj) 10 mg Q6H PRN IV NAUSEA OR VOMITING; Start at 20:45; Stop 05/29/16 at 13:33; Status DC Docusate Sodium (Colace Liq) 100 mg Q12H G-TUBE Last administered on 06/10/16 08:44; Start 05/27/16 at 20:45 Albuterol/ Ipratropium (Duoneb Neb) 1 ampule Q2HR NEB PRN INH WHEEZING; Start 05/27/16 at 20:45 Miscellaneous Information 1 [id number] Last administered on 05/27/16 20:45; Start 05/27/16 at 20:45 Chlorhexidine Gluconate (Chlorhexidine 2% Cloth) Taper DAILY@04 TOP Last administered on 06/09/16 04:00; Start 05/28/16 at 04:00; Stop 05/24/17 at 03:59 Chlorhexidine Gluconate 3 pack 3 pack UNSCH PRN TOP HYGIENIC CARE; Start at 20:45 Nicardipine HCl/ Sodium Chloride (Cardene Inj/NS 250 ml Inj) 260 ml @ 0 mls/hr TITRATE IV Last administered on 06/09/16 15:00; Start 05/27/16 at 21:00 Nimodipine (Nimotop) 60 mg Q4HR PO Last administered on 06/10/16 16:51; Start 05/28/16 at 00:00 Pravastatin Sodium (Pravachol) 40 mg HS PO Last administered on 06/09/16 19:50 ; Start 05/27/16 at 21:00 Hydralazine HCl 20 mg 20 mg STK-MED ONCE .ROUTE ; Start 05/27/16 at 20:54; Stop 05/27/16 at 20:55; Status DC Mannitol 50 ml @ As Directed STK-MED ONCE .ROUTE ; Start 05/27/16 at 21:07; Stop 05/27/16 at 21:08; Status DC Mannitol 50 ml @ As Directed STK-MED ONCE .ROUTE ; Start 05/27/16 at 21:12; Stop 05/27/16 at 21:13; Status DC Sodium Chloride 500 ml @ 20 mls/hr UNSCH IV Last administered on 05/29/16 23: 27; Start 05/27/16 at 21:30; Stop 06/01/16 at 11:28; Status DC Levetriacetam 100 ml @ 400 mls/hr BOLUS ONCE IV Last administered on 22:09; Start 05/27/16 at 21:30; Stop 05/27/16 at 21:44; Status DC Levetriacetam (Keppra 1000 Mg Inj) 100 ml @ 400 mls/hr Q12HR IV Last administered on 06/10/16 08:45; Start 05/28/16 at 09:00 Epinephrine HCl (EPINEPHrine (1:10,000) INJ) 1 mg STK-MED ONCE .ROUTE ; Start at 22:22; Stop 05/27/16 at 22:23; Status DC Lidocaine HCl (Xylocaine 2% Inj) 100 mg STK-MED ONCE .ROUTE ; Start 05/27/16 at 22:22; Stop 05/27/16 at 22:23; Status DC Atropine Sulfate 1 mg 1 mg STK-MED ONCE .ROUTE ; Start 05/27/16 at 22:22; Stop 05/27/16 at 22:23; Status DC Norepinephrine Bitartrate 250 ml @ As Directed STK-MED ONCE IV ; Start at 22:34; Stop 05/27/16 at 22:35; Status DC Norepinephrine Bitartrate (Levophed-Dextrose Drip) 250 ml @ 0 mls/hr TITRATE IV ; Start 05/27/16 at 22:45; Stop 05/28/16 at 02:04; Status DC Terbutaline Sulfate (Brethine Inj) 1 mg UNSCH PRN SQ For Extravasation; Start 05/27/16 at 22:45; Stop 06/01/16 at 11:28; Status DC Norepinephrine Bitartrate (Levophed Inj) 4 mg STK-MED ONCE .ROUTE ; Start at 22:46; Stop 05/27/16 at 22:47; Status DC Iohexol (Omnipaque 350 Inj) 100 ml STK-MED ONCE IV Last administered on 23:12; Start 05/27/16 at 23:12; Stop 05/27/16 at 23:13; Status DC Hydralazine HCl 20 mg 20 mg STAT ONCE IVS Last administered on 05/27/16 21:10 ; Start 05/28/16 at 01:00; Stop 05/28/16 at 01:03; Status DC Potassium Chloride 100 ml @ 50 mls/hr Q2H PRN IV For Potassium 2.8 - 3.2 mEq/ L Last administered on 06/04/16 13:40; Start 05/28/16 at 01:45 Potassium Chloride (KCl 20 Meq Premix Inj) 100 ml @ 50 mls/hr Q2H PRN IV For Potassium 2.8 - 3.2 mEq/L Last administered on 06/09/16 15:01; Start 05/28/16 at 01:45 Potassium Chloride 40 meq 40 meq UNSCH PRN PO/TUBE For Potassium 3.3 - 3.5 mEq/ L Last administered on 06/08/16 00:40; Start 05/28/16 at 01:45 Potassium Chloride 100 ml @ 25 mls/hr UNSCH PRN IV For Potassium 3.3 - 3.5 mEq /L Last administered on 05/30/16 18:33; Start 05/28/16 at 01:45 Potassium Chloride 100 ml @ 50 mls/hr Q2H PRN IV For Potassium 3.3 - 3.5 mEq/ L Last administered on 06/02/16 08:34; Start 05/28/16 at 01:45 Magnesium Sulfate/ Sodium Chloride (Magnesium Sulfate Inj/NS Inj) 100 ml @ 50 mls/hr UNSCH PRN IV For Magnesium 0.9 - 1.1 mg/dL; Start 05/28/16 at 01:45 Magnesium Oxide 800 mg 800 mg UNSCH PRN PO For Magnesium 1.2 - 1.6 mg/dL; Start 05/28/16 at 01:45 Magnesium Sulfate/ Sodium Chloride (Magnesium Sulfate Inj/NS Inj) 100 ml @ 50 mls/hr UNSCH PRN IV For Magnesium 1.2 - 1.6 mg/dL Last administered on 13:40; Start 05/28/16 at 01:45 Potassium Phosphate 2000 mg 2,000 mg Q4H PRN PO For Phosphorus < 2.5 mg/dL; Start 05/28/16 at 01:45 Sodium Phosphate/ Sodium Chloride (Sodium Phosphate Inj/NS 250 ml Inj) 250 ml @ 42 mls/hr UNSCH PRN IV For Phosphorus < 2.5 mg/dL Last administered on 08:45; Start 05/28/16 at 01:45 Potassium Chloride (KCl 40 Meq/30 ml Liq) 40 meq UNSCH PRN PO/TUBE SEE LABEL COMMENTS Last administered on 06/03/16 05:31; Start 05/28/16 at 01:45 Potassium Phosphate 2000 mg 2,000 mg UNSCH PRN PO/TUBE SEE LABEL COMMENTS; Start 05/28/16 at 01:45 Potassium Phosphate/Sodium Chloride (Potassium Phosphate Inj/NS 250 ml Inj) 260 ml @ 42 mls/hr UNSCH PRN IV SEE LABEL COMMENTS Last administered on 06/08/16 17:09; Start 05/28/16 at 01:45 Mannitol 80 gm 80 gm STAT ONCE IV Last administered on 05/27/16 21:10; Start 05/28/16 at 02:15; Stop 05/28/16 at 02:16; Status DC Norepinephrine Bitartrate (Levophed-Dextrose Drip) 250 ml @ 0 mls/hr TITRATE IV Last administered on 05/29/16 19:02; Start 05/28/16 at 02:15; Stop 05/29/16 at 19:45; Status DC Nicardipine HCl 25 mg 25 mg STK-MED ONCE .ROUTE ; Start 05/28/16 at 06:52; Stop 05/28/16 at 06:53; Status DC Sodium Chloride (NS 250 ml Inj) 250 ml @ As Directed STK-MED ONCE .ROUTE ; Start 05/28/16 at 06:52; Stop 05/28/16 at 06:53; Status DC Nicardipine HCl (Cardene Inj) 25 mg STK-MED ONCE .ROUTE ; Start 05/28/16 at 06: 55; Stop 05/28/16 at 06:56; Status DC Epinephrine HCl (EPINEPHrine (1:10,000) INJ) 1 mg STK-MED ONCE .ROUTE ; Start at 22:20; Stop 05/28/16 at 22:21; Status DC Lidocaine HCl (Xylocaine 2% Inj) 100 mg STK-MED ONCE .ROUTE ; Start 05/28/16 at 22:20; Stop 05/28/16 at 22:21; Status DC Atropine Sulfate (Atropine Inj) 1 mg STK-MED ONCE .ROUTE ; Start 05/28/16 at 22: 20; Stop 05/28/16 at 22:21; Status DC Verapamil HCl (Isoptin Inj) 10 mg STK-MED ONCE .ROUTE ; Start 05/28/16 at 23:45 ; Stop 05/28/16 at 23:46; Status DC Dextrose (D50w (Vial) Inj) 25 ml UNSCH PRN IV PUSH HYPOGLYCEMIA-SEE COMMENTS; Start 05/29/16 at 07:30 Insulin Human Regular (NovoLIN R SUPPLEMENTAL SCALE) 1 Q6HR SQ Last administered on 06/10/16 06:00; Start 05/29/16 at 12:00 Iodixanol 121 ml 121 ml STK-MED ONCE I-ARTERIAL Last administered on 05/29/16 01:00; Start 05/29/16 at 01:00; Stop 05/29/16 at 11:40; Status DC Fosphenytoin Sodium/Sodium Chloride (Cerebyx Inj/NS Inj) 70 ml @ 280 mls/hr ONCE ONCE IV Last administered on 05/29/16 14:09; Start 05/29/16 at 15:00; Stop 05/29/16 at 15:14; Status DC Fosphenytoin Sodium (Cerebyx Inj) 200 mgpe Q12HR IV Last administered on 20:41; Start 05/29/16 at 21:00; Stop 06/02/16 at 08:21; Status DC Norepinephrine Bitartrate 4 mg 4 mg STK-MED ONCE .ROUTE ; Start 05/29/16 at 18: 34; Stop 05/29/16 at 18:35; Status DC Sodium Chloride 500 ml @ 500 mls/hr Q1H ONCE IV Last administered on 17:20; Start 05/29/16 at 18:45; Stop 05/29/16 at 19:44; Status DC Norepinephrine Bitartrate 4 mg/ Sodium Chloride 250 ml @ 0 mls/hr TITRATE IV Last administered on 05/30/16 07:11; Start 05/29/16 at 19:45; Stop 05/30/16 at 09 :40; Status DC Vasopressin 40 units/Dextrose 100 ml @ 6 mls/hr [id number] IV ; Start 05/29/16 at 21:00; Stop 05/29/16 at 21:00; Status DC Vasopressin/ Sodium Chloride (Pitressin Inj/ NS Inj) 102 ml @ 6.12 mls/hr [id number] IV Last administered on 05/31/16 05:43; Start 05/29/16 at 21:00; Stop 06/01/16 at 11:28; Status DC Hydrocortisone Sodium Succinate 50 mg 50 mg Q6H IV PUSH Last administered on 08:33; Start 05/30/16 at 09:00; Stop 06/01/16 at 11:29; Status DC Phenylephrine HCl 160 mg/Dextrose 500 ml @ 0 mls/hr TITRATE IV ; Start 05/30/16 at 09:45; Stop 05/30/16 at 09:51; Status DC Norepinephrine Bitartrate 16 mg/ Sodium Chloride 262 ml @ 0 mls/hr TITRATE IV ; Start 05/30/16 at 09:45; Stop 06/08/16 at 10:35; Status DC Phenylephrine HCl/ Sodium Chloride (Neosynephrine Inj/NS 500 ml Inj) 500 ml @ 0 mls/hr TITRATE IV Last administered on 05/30/16 17:50; Start 05/30/16 at 10:00; Stop 06/01/16 at 11:29; Status DC Epinephrine HCl (EPINEPHrine (1:10,000) INJ) 1 mg STK-MED ONCE .ROUTE ; Start at 10:08; Stop 05/31/16 at 10:09; Status DC Lidocaine HCl (Xylocaine 2% Inj) 100 mg STK-MED ONCE .ROUTE ; Start 05/31/16 at 10:08; Stop 05/31/16 at 10:09; Status DC Atropine Sulfate (Atropine Inj) 1 mg STK-MED ONCE .ROUTE ; Start 05/31/16 at 10: 08; Stop 05/31/16 at 10:09; Status DC Iohexol (Omnipaque 350 Inj) 91 ml STK-MED ONCE IV Last administered on 10:56; Start 05/31/16 at 10:56; Stop 05/31/16 at 10:57; Status DC Water (Free Water) 200 ml Q6HR OG Last administered on 06/01/16 11:09; Start at 12:00; Stop 06/01/16 at 16:45; Status DC Epinephrine HCl (EPINEPHrine (1:10,000) INJ) 1 mg STK-MED ONCE .ROUTE ; Start at 11:27; Stop 06/01/16 at 11:28; Status DC Lidocaine HCl (Xylocaine 2% Inj) 100 mg STK-MED ONCE .ROUTE ; Start 06/01/16 at 11:28; Stop 06/01/16 at 11:29; Status DC Atropine Sulfate (Atropine Inj) 1 mg STK-MED ONCE .ROUTE ; Start 06/01/16 at 11: 28; Stop 06/01/16 at 11:29; Status DC Gadodiamide (Omniscan Pf Inj) 16 ml STK-MED ONCE IV Last administered on 12:50; Start 06/01/16 at 12:50; Stop 06/01/16 at 12:51; Status DC Water 300 ml 300 ml Q4HR OG Last administered on 06/03/16 03:10; Start 06/01/16 at 20:00; Stop 06/03/16 at 16:34; Status DC Sodium Chloride (NS 1000 ml Inj) 1,000 ml @ 999 mls/hr BOLUS ONCE IV Last administered on 06/01/16 16:49; Start 06/01/16 at 16:45; Stop 06/01/16 at 17:45; Status DC Fosphenytoin Sodium (Cerebyx Inj) 100 mgpe Q12HR IV Last administered on 08:44; Start 06/02/16 at 09:00 Albuterol/ Ipratropium (Duoneb Neb) 1 ampule Q6HR NEB NEB Last administered on 06/10/16 15:04; Start 06/03/16 at 16:00 Lidocaine HCl (Xylocaine 2% Inj) 100 mg STK-MED ONCE .ROUTE ; Start 06/04/16 at 10:51; Stop 06/04/16 at 10:52; Status DC Atropine Sulfate 1 mg 1 mg STK-MED ONCE .ROUTE ; Start 06/04/16 at 10:51; Stop at 10:52; Status DC Magnesium Sulfate/ Dextrose (Magnesium Sulfate 1 Gm Premix) 100 ml @ As Directed STK-MED ONCE .ROUTE ; Start 06/04/16 at 13:18; Stop 06/04/16 at 13:19; Status DC Epinephrine HCl (EPINEPHrine (1:10,000) INJ) 1 mg STK-MED ONCE .ROUTE ; Start at 10:22; Stop 06/05/16 at 10:23; Status DC Lidocaine HCl (Xylocaine 2% Inj) 100 mg STK-MED ONCE .ROUTE ; Start 06/05/16 at 10:22; Stop 06/05/16 at 10:23; Status DC Atropine Sulfate (Atropine Inj) 1 mg STK-MED ONCE .ROUTE ; Start 06/05/16 at 10: 22; Stop 06/05/16 at 10:23; Status DC Midazolam HCl (Versed Inj) 5 mg STK-MED ONCE .ROUTE ; Start 06/05/16 at 11:29; Stop 06/05/16 at 11:30; Status DC Fentanyl Citrate (fentaNYL INJ) 250 mcg STK-MED ONCE .ROUTE ; Start 06/05/16 at 11:29; Stop 06/05/16 at 11:30; Status DC Iodixanol (Visipaque 320 Inj) 172 ml STK-MED ONCE I-ARTERIAL Last administered on 06/05/16 12:15; Start 06/05/16 at 12:51; Stop 06/05/16 at 12:52; Status DC Sennosides (Senna Liq) 8.8 mg BID PO/TUBE Last administered on 06/10/16 08:45 ; Start 06/07/16 at 09:00 Polyethylene Glycol (Miralax) 17 gm DAILY PO Last administered on 06/07/16 09: 10; Start 06/07/16 at 09:00; Stop 06/08/16 at 10:35; Status DC Glycerin (Glycerin Adult Supp) 2 gm BID PRN RECTAL CONSTIPATION; Start 06/07/16 at 09:00 Lactulose (Lactulose Liq) 30 ml ONCE ONCE PO Last administered on 06/07/16 09: 10; Start 06/07/16 at 09:00; Stop 06/07/16 at 09:01; Status DC Potassium Chloride 40 meq 40 meq ONCE ONCE PO Last administered on 06/07/16 09 :11; Start 06/07/16 at 09:00; Stop 06/07/16 at 09:02; Status DC Magnesium Sulfate/ Dextrose 100 ml @ 100 mls/hr Q1H IV Last administered on 12:28; Start 06/07/16 at 10:00; Stop 06/07/16 at 11:59; Status DC Cefazolin Sodium/ Dextrose (Ancef 2 Gm Premix) 50 ml @ 100 mls/hr DINING MANAGER ONCE IV Last administered on 06/07/16 14:48; Start 06/07/16 at 12:45; Stop at 13:14; Status DC Cefazolin Sodium (Ancef Inj) 1,000 mg STK-MED ONCE IV Last administered on 15:14; Start 06/07/16 at 15:14; Stop 06/07/16 at 15:48; Status DC Propofol (Diprivan 200 Mg/20 ml Inj) 50 mg STK-MED ONCE IV Last administered on 06/07/16 15:15; Start 06/07/16 at 15:15; Stop 06/07/16 at 15:52; Status DC Polyethylene Glycol (Miralax) 17 gm BID PO Last administered on 06/10/16 08:45 ; Start 06/08/16 at 21:00 Iohexol (Omnipaque 350 Inj) 65 ml STK-MED ONCE IV Last administered on 12:01; Start 06/08/16 at 12:01; Stop 06/08/16 at 12:02; Status DC Bumetanide (Bumex Inj) 1 mg ONCE ONCE IV PUSH Last administered on 06/08/16 13:49; Start 06/08/16 at 13:45; Stop 06/08/16 at 13:46; Status DC Fentanyl Citrate (fentaNYL INJ) 50 mcg ONCE ONCE IV PUSH Last administered on 06/08/16 15:20; Start 06/08/16 at 16:00; Stop 06/08/16 at 16:01; Status DC Midazolam HCl (Versed Inj) 5 mg ONCE ONCE IV PUSH Last administered on 15:20; Start 06/08/16 at 16:00; Stop 06/08/16 at 16:01; Status DC Rocuronium [place] (Zemuron Inj) 50 mg BOLUS ONCE IV Last administered on 06/08 16:00; Start 06/08/16 at 16:00; Stop 06/08/16 at 16:01; Status DC Norepinephrine Bitartrate (Levophed Inj) 4 mg STK-MED ONCE .ROUTE Last administered on 06/08/16 15:27; Start 06/08/16 at 15:27; Stop 06/08/16 at 15:28 ; Status DC Sodium Chloride (Sodium Chloride 3% Neb) 2 ml Q6HR NEB NEB Last administered on 06/10/16 15:04; Start 06/08/16 at 17:00; Stop 06/11/16 at 16:59 Nicardipine HCl 25 mg 25 mg STK-MED ONCE .ROUTE ; Start 06/08/16 at 20:46; Stop 06/08/16 at 20:47; Status DC Sodium Chloride (NS 250 ml Inj) 250 ml @ As Directed STK-MED ONCE .ROUTE ; Start 06/08/16 at 20:46; Stop 06/08/16 at 20:47; Status DC Fentanyl Citrate (fentaNYL INJ) 50 mcg ONCE ONCE IV PUSH Last administered on 06/09/16 15:15; Start 06/09/16 at 12:45; Stop 06/09/16 at 12:46; Status DC Midazolam HCl (Versed Inj) 5 mg ONCE ONCE IV PUSH Last administered on 15:15; Start 06/09/16 at 12:45; Stop 06/09/16 at 12:46; Status DC Rocuronium [place] (Zemuron Inj) 50 mg BOLUS ONCE IV Last administered on 06/09 15:15; Start 06/09/16 at 12:45; Stop 06/09/16 at 12:46; Status DC Losartan Potassium (Cozaar) 25 mg DAILY PO Last administered on 06/10/16 08:45 ; Start 06/09/16 at 15:00 Hydrochlorothiazide (Microzide) 12.5 mg DAILY PO Last administered on 08:45; Start 06/10/16 at 09:00 Carvedilol (Coreg) 6.25 mg Q12HR PO Last administered on 06/10/16 08:45; Start 06/09/16 at 21:00 Phenylephrine HCl (Neosynephrine Inj) 10 mg STK-MED ONCE .ROUTE ; Start at 09:59; Stop 06/10/16 at 10:00; Status DC Phenylephrine HCl (Neosynephrine Inj) 30 mg STK-MED ONCE .ROUTE ; Start at 10:00; Stop 06/10/16 at 10:01; Status DC Iohexol (Omnipaque 350 Inj) 83 ml STK-MED ONCE IV Last administered on 11:03; Start 06/10/16 at 11:03; Stop 06/10/16 at 11:04; Status DC Verapamil HCl (Isoptin Inj) 10 mg STK-MED ONCE .ROUTE Last administered on 06/10 12:53; Start 06/10/16 at 12:53; Stop 06/10/16 at 12:54; Status DC Verapamil HCl (Isoptin Inj) 10 mg STK-MED ONCE .ROUTE Last administered on 06/10 13:29; Start 06/10/16 at 13:29; Stop 06/10/16 at 13:30; Status DC Verapamil HCl (Isoptin Inj) 5 mg STK-MED ONCE .ROUTE Last administered on 13:53; Start 06/10/16 at 13:53; Stop 06/10/16 at 13:54; Status DC Verapamil HCl (Isoptin Inj) 10 mg STK-MED ONCE .ROUTE Last administered on 06/10 13:54; Start 06/10/16 at 13:54; Stop 06/10/16 at 13:55; Status DC Verapamil HCl (Isoptin Inj) 5 mg STK-MED ONCE .ROUTE Last administered on 13:59; Start 06/10/16 at 13:59; Stop 06/10/16 at 14:00; Status DC Iodixanol (Visipaque 320 Inj) 100 ml STK-MED ONCE I-ARTERIAL Last administered on 06/10/16 14:23; Start 06/10/16 at 14:19; Stop 06/10/16 at 14:20; Status DC Medical Decision Making MDM Remarks Last Impressions Transcranial Doppler Study Complete 05/28/16 0000 Signed Impressions: Service Date/Time: Saturday, May 28, 2016 07:58 - CONCLUSION: Negative for base line study for vasospasm.. Dillon Zaragoza MD FACR Chest X-Ray 05/27/161940 Signed Impressions: Service Date/Time: Friday, May 27, 2016 20:01 - CONCLUSION: No acute disease. Adequate placement of endotracheal tube. Juvencio Encarnacion MD Head CTA 05/27/16 0000 Signed Impressions: Service Date/Time: Friday, May 27, 2016 23:03 - CONCLUSION: 1. No intercranial aneurysm identified by CT angiography. Perez Zaragoza MD Plan Plan Remarks 66 y/o female with subarachnoid hemorrhage suspected intracranial aneurysm, placement of ventriculostomy drain, ICPs remains within normal range CTA Head x 2 negative for aneurysm, Cerebral angiography neg for aneurysm, repeat cerebral angio 06/05/16 again neg for intracranial aneurysm MRI Brain and C spine without mass lesions Attending Statement Continue neuro checks in a serial fashion. follow-up CTA and angiography with no clear evidence of an aneurysm Daily follow-up TCDs. Her latest follow-up angiography was normal Continue CSF drainage via ventriculostomy Respiratory. Continue mechanical ventilation in assist contyrol mode of mechanical ventilation, pulmonary toilette, nasotracheal suction, and breathing treatments with nebulizers. Hypertension As needed Cardene to maintain systolic blood pressure less than 150. PT and OT eval Nutrition. Continue tube feedings Renal. Continue to monitor closely urine output, BUN and creatinine Endocrine. Continue to Monitor serial Acu checks and SSI for tight control ID continue to monitor for signs of infection Continue Protonix for stress ulcer prophylaxis Continue Julio hosjanice and SCD's for DVT prophylaxis Arcenio Mtz MD Jun 09, 2016 13:57
[2016-06-09] MEDS: niCARdipine INJ 25 MG in SODIUM CHLOR 0.9% 250 ML INJ 250 ML IV SCH (15:00)
[2016-06-09] MEDS: LOSARTAN 25 MG TAB PO SCH (15:00)
--- NOTE | 2016-06-09 15:51 | PD.PROCEDR ---
Procedure Note Procedure Procedure: Fiberoptic Bronchoscopy for percutaneous tracheostomy guidance Diagnosis/Indication: Respiratory failure, encephalopathy, unable to wean from ventilator Consent: Informed consent obtained and a time out performed Anesthesia: Total 10 mg of IV Versed, and 100 g fentanyl was 1 for sedation. Neuromuscular paralysis with rocuronium 100 g IV 1 Description of the Procedure: The patient was sedated and mechanically ventilated, was placed on 100% FIO2 and PRVC mode of ventilation. I entered this 7.5 ET tube the fiberoptic bronchoscope The endobronchial anatomy was normal. ETT was withdrawn slowly to 17.0 CM. Insertion of introducer needle, guidewire, followed by serial Blue Rhino dilation and tracheostomy placement was directly visualized on video bronchoscopy. (see separate tracheostomy procedure note by Dr. Bettencourt). After tracheostomy placement, position was confirmed by introducing the bronchoscope through the new trach and visualizing the main kwan. The fiberoptic bronchoscopy was inserted via endotracheal tube and the trachea, right and left mainstem bronchi, were evaluated. Copious white thick secretions were noted in the left mainstem/upper/lingula and lower lobes and right lower lobe.. This was suctioned to clear. Mucosa was normal. The patient tolerated the procedure well with no hemodynamic instability or hypoxia. There were no immediate complications noted. EBL for bronchoscopy was negligible. A chest x-ray has been ordered. I personally performed the procedure. Edd Crow MD Jun 09, 2016 15:51
--- NOTE | 2016-06-09 17:02 | RADRPT ---
EXAM DATE/TIME: 06/09/2016 16:01 [facility] COMPARISON: CHEST SINGLE AP, June 09, 2016, 4:24. INDICATIONS : Status Post Bronchoscopy MEDICAL HISTORY : Hypertension. A-fib. SURGICAL HISTORY : None. ENCOUNTER: Subsequent ACUITY: 2 weeks PAIN SCORE: Non-responsive. LOCATION: Bilateral chest FINDINGS: Patient converted to trach collar. Trach tip is approximately 3.3 cm above the kwan. Mild bibasilar consolidation and small effusions again noted. No pneumothorax seen. CONCLUSION: 1. Tracheostomy in the interim. No acute complication demonstrated. 2. Mild bibasilar consolidation and small effusions not significantly changed. Lauro Logan MD on June 09, 2016 at 16:59 Board Certified Radiologist. This report was verified electronically.
[2016-06-09] MEDS: CARVEDILOL 6.25 MG TAB PO SCH (19:50)
[2016-06-09] MEDS: PRAVASTATIN SOD 40 MG TAB PO SCH (19:50)
[2016-06-10] VITALS (18 sets, daily range): BP systolic 135–172; BP diastolic 60–79; PULSE 81–94; RESP 20–21; TEMP 98.1–99.3; O2SAT 99–100
[2016-06-10] MEDS: CHLORHEXIDINE GLUCONATE 2 % 1 PACK (2 CLOTHS) TOP SCH (04:00)
[2016-06-10] MEDS: RESP: ALBUTEROL 2.5 MG/IPRATROPIUM 0.5 MG NEB (SCH) NEB ×4 (04:23→19:59)
[2016-06-10] MEDS: RESP: SODIUM CHLORIDE 3% 4 ML NEB NEB SCH ×4 (04:23→19:59)
[2016-06-10] MEDS: niMODipine 30 MG CAP PO SCH ×6 (04:26→23:35)
[2016-06-10 04:53] LABS: AUTOMATED NEUTROPHIL # 7.2 TH/MM3 (1.8-7.7); BASOPHIL # 0.1 TH/MM3 (0-0.2); BASOPHIL % 0.7 % (0.0-2.0); EOSINOPHIL # 0.1 TH/MM3 (0-0.4); EOSINOPHIL % 0.9 % (0.0-4.0); HEMATOCRIT 24.6 % (35.0-46.0); LYMPH % 7.6 % (9.0-44.0); LYMPHOCYTE # 0.6 TH/MM3 (1.0-4.8); MEAN CELL VOLUME 90.1 FL (80.0-100.0); MEAN CORPUSCULAR HEMOGLOBIN 31.9 PG (27.0-34.0); MEAN CORPUSCULAR HGB CONC 35.4 % (32.0-36.0); MONO % 6.3 % (0.0-8.0); NEUT % 84.5 % (16.0-70.0); PLATELET COUNT 520 TH/MM3 (150-450); RED BLOOD COUNT 2.73 MIL/MM3 (4.00-5.30); RED CELL DISTRIBUTION WIDTH 13.7 % (11.6-17.2); WHITE BLOOD COUNT 8.5 TH/MM3 (4.0-11.0)
[2016-06-10 04:57] LABS: HEMO FLAGS AUTO DIFF
[2016-06-10 05:30] LABS: ALKALINE PHOSPHATASE 282 U/L (45-117); ALT (GPT) 416 U/L (10-53); ANION GAP 10 MEQ/L (5-15); AST (GOT) 375 U/L (15-37); BICARBONATE 25.1 MEQ/L (21.0-32.0); BLOOD UREA NITROGEN 10 MG/DL (7-18); CHLORIDE 102 MEQ/L (98-107); GLOMERULAR FILTRATION RATE 199 ML/MIN (>89); MAGNESIUM 2.2 MG/DL (1.5-2.5); POTASSIUM 3.7 MEQ/L (3.5-5.1); SODIUM (NA) 137 MEQ/L (136-145); TOTAL BILIRUBIN ADULT 0.3 MG/DL (0.2-1.0)
[2016-06-10] MEDS: INSULIN NovoLIN REGULAR SUPPLEMENTAL SCALE SQ SCH ×4 (06:00→23:35)
[2016-06-10] MEDS: DOCUSATE SODIUM 100 MG/10 ML UDC G-TUBE SCH ×2 (08:44→19:45)
[2016-06-10] MEDS: FOSPHENYTOIN SODIUM 100 MG PE/2 ML VIAL IV SCH ×2 (08:44→19:46)
[2016-06-10] MEDS: POLYETHYLENE GLYCOL 17 GM PKG PO SCH ×2 (08:45→19:47)
[2016-06-10] MEDS: CARVEDILOL 6.25 MG TAB PO SCH ×2 (08:45→19:46)
[2016-06-10] MEDS: SODIUM CHLORIDE 0.9% FLUSH 5 ML FLUSH IV FLUSH SCH ×2 (08:45→19:46)
[2016-06-10] MEDS: HYDROCHLOROTHIAZIDE 12.5 MG CAP PO SCH (08:45)
[2016-06-10] MEDS: levETIRAcetam 1000 MG INJ 100 ML IV SCH ×2 (08:45→19:46)
[2016-06-10] MEDS: FAMOTIDINE 20 MG/2 ML VIAL IV PUSH SCH ×2 (08:45→19:46)
[2016-06-10] MEDS: SENNOSIDES SYRUP 8.8 MG/5 ML CUP PO/TUBE SCH ×2 (08:45→19:47)
[2016-06-10] MEDS: LOSARTAN 25 MG TAB PO SCH (08:45)
[2016-06-10] MEDS: SODIUM PHOSPHATE INJ 30 MMOL in SODIUM CHLOR 0.9% 250 ML INJ 240 ML IV PRN (08:45)
[2016-06-10] MEDS: ARTIFICIAL TEARS OPTH SOLN 15 ML BTL EACH EYE SCH ×3 (08:46→16:52)
--- NOTE | 2016-06-10 09:37 | RADRPT ---
EXAM DATE/TIME: 06/10/2016 07:12 [facility] COMPARISON: US TRANSCRANIAL DOPPLER COMPLETE, June 09, 2016, 8:48. INDICATIONS : Subarachnoid hemorrhage. MEDICAL HISTORY : Hypercholesterolemia. Hypertension. Cardiovascular disease A-Fib. Hydrocephalus. SURGICAL HISTORY : Right frontal Sb hole with ventriculostomy drain tube. ENCOUNTER: Subsequent ACUITY: 1 day PAIN SCORE: Nonresponsive. LOCATION: Bilateral cranial RIGHT: LEFT: Current Exam: Jun 10, 2016 Lindegaard Ratio: 3.7 1.6 Merino Ratio: Previous Exam: Jun 09, 2016 Lindegaard Ratio: 1.7 1.6 Merino Ratio: 0.5 0.9 FINDINGS: Examination performed at bedside. Real-time ultrasound with the assistance of color and spectral Dop pler was utilized to evaluate the intracerebral circulation. Time-averaged maximal velocities are ca lculated in cm/s. There is elevated velocity seen in the right middle cerebral artery. The Lindegaard ratio is now elev ated on the right. CONCLUSION: Suspected spasm on the right side. Attempts will be made to contact the treating physician with this result. Lauro Mcbride MD on June 10, 2016 at 9:31 Board Certified Radiologist. This report was verified electronically.
[2016-06-10] MEDS ORDERED: PHENYLEPHRINE HCL 10 MG/ML VIAL ONE ×2 (09:59→10:00)
[2016-06-10 10:07] LABS: BANDS 11 % (0-6); BASOPHILS 1 % (0-2); EOSINOPHILS 1 % (0-4); KERATOCYTES OCC (NORMAL); METAMYELOCYTES 1 % (0-1); NEUTROPHIL # MANUAL DIFF 7.3 TH/MM3 (1.8-7.7); PLATELET ESTIMATE SMEAR HIGH (NORMAL); PLATELET MORPHOLOGY NORMAL (NORMAL); POLYS (SEG NEUTROPHILS) 74 % (16-70); WBC DIFF SAMPLE 100
[2016-06-10 10:08] LABS: SCAN/DIFF FINAL DIFF MANUAL
[2016-06-10] MEDS ORDERED: IOHEXOL 350 MG/ML 10 ML VIAL (for RAD DIAG) IV ONE (11:03)
--- NOTE | 2016-06-10 11:44 | RADRPT ---
EXAM DATE/TIME: 06/10/2016 10:50 [facility] COMPARISON: CTA BRAIN W 3D RECON, May 31, 2016, 10:44. INDICATIONS : Evaluate for aneurysm. IV CONTRAST: 83 cc Omnipaque 350 (iohexol) IV ; Cumulative dose for multiple exams. RADIATION DOSE: 15.89 CTDIvol (mGy) ; Combined studies MEDICAL HISTORY : Stroke. Hypertension. SURGICAL HISTORY : None. ENCOUNTER: Initial ACUITY: 1 day PAIN SCALE: Non-responsive LOCATION: Bilateral head TECHNIQUE: Volumetric scanning was performed using a multi-row detector CT scanner. The data was post processed with a variety of visualization algorithms including full volume maximum intensity projection, multi -planar sliding thin slab reformation, curved planar reformation, and surface rendering techniques. Using automated exposure control and adjustment of the mA and/or kV according to patient size, radiat ion dose was kept as low as reasonably achievable to obtain optimal diagnostic quality images. FINDINGS: There is narrowing of all the intracerebral arterial structures. There is some beading at the anterio r, middle, and posterior cerebral arteries and vertebral and basal arteries. CONCLUSION: Suspected diffuse vasospasm. Lauro Mcbride MD on June 10, 2016 at 11:38 Board Certified Radiologist. This report was verified electronically.
--- NOTE | 2016-06-10 11:54 | RADRPT ---
EXAM DATE/TIME: 06/10/2016 10:50 [facility] COMPARISON: No previous studies available for comparison. INDICATIONS : Evaluate for aneurysm. IV CONTRAST: 83 cc Omnipaque 350 (iohexol) IV ; Cumulative dose for multiple exams. RADIATION DOSE: 15.89 CTDIvol (mGy) ; Combined studies MEDICAL HISTORY : Stroke. Hypertension. SURGICAL HISTORY : None. ENCOUNTER: Initial ACUITY: 1 day PAIN SCALE: Non-responsive LOCATION: Bilateral neck Elevated flow velocities and ICA/CCA ratios have been found to correlate with increased degrees of vessel stenosis, calculated as percentage of diameter relative to a normal segment of distal ICA/CCA. TECHNIQUE: Volumetric scanning was performed using a multirow detector CT scanner. The data was post processed with a variety of visualization algorithms including full-volume maximum intensity projection, multip lanar sliding thin-slab reformation, curved-planar reformation, and surface-rendering techniques. Us ing automated exposure control and adjustment of the mA and/or kV according to patient size, radiatio n dose was kept as low as reasonably achievable to obtain optimal diagnostic quality images. FINDINGS: AORTIC ARCH: No evidence of ostial narrowing. The left vertebral artery arises from the aortic arch to replete jus t beyond the left common carotid artery origin. RIGHT CAROTID: The common carotid artery is intact. The carotid bulb has a normal configuration without ulceration o r narrowing. The proximal internal carotid artery lumen is smooth without stenosis. The distal inter nal carotid artery appears beaded. The external carotid artery is intact. LEFT CAROTID: The common carotid artery is intact. The carotid bulb has a normal configuration without ulceration or narrowing. The proximal internal carotid artery lumen is smooth without stenosis. The distal int ernal carotid artery appears beaded. The external carotid artery is intact. VERTEBRALS: The vertebral arteries have a symmetric diameter. No stenotic lesions are seen. CONCLUSION: There is beadng of the distal internal carotid bilaterally likely related to spasm.. Lauro Mcbride MD on June 10, 2016 at 11:50 Board Certified Radiologist. This report was verified electronically.
[2016-06-10] MEDS ORDERED: VERAPAMIL INJ 10 MG/4 ML VIAL ONE ×2 (12:53→13:54)
[2016-06-10] MEDS ORDERED: VERAPAMIL HCL 5 MG/2 ML VIAL ONE ×3 (13:29→13:59)
--- NOTE | 2016-06-10 14:16 | PD.RAD ---
Post Procedure Progress Note Pre Procedure Diagnosis: (1) Subarachnoid hemorrhage Post Procedure Diagnosis: (1) Subarachnoid hemorrhage Procedure Date: Jun 10, 2016 Supervising Radiologist: Brandon Herrera Proceduralist/Assist: Radha Bhatt, RT(R)(CV), Marge Dubois RT(R)() Anesthesia: Analgesia Plan of Activity Patient to Unit: Critical Care Patient Condition: Poor See PACS Report for procedural detail/treatment Vascular-Arterial Procedure Procedure 1 Procedure Site: Cerebral Procedure(s): Angiogram (with four vessel spasmolysis) Access Access Site(s): Right Femoral Artery Closure Site(s): Right manual pressure Brandon Herrera MD Jun 10, 2016 14:16
[2016-06-10] MEDS ORDERED: IODIXANOL 320 MG/ML 50 ML VIAL (for RAD SPEC) I-ARTERIAL ONE (14:19)
--- NOTE | 2016-06-10 15:22 | HHI.CCPN ---
Subjective Remarks/Hospital Course Hospital Course: 66 years old female was transferred to [facility] from [facility] in [place]. Patient and her was vacationing from [place]. They aware on the train while at around 2:00 patient started having severe headache and then vomited and then had a syncopal episode. Patient was transported to [facility] in [place]. On the way to the hospital, patient started having respiratory problem and patient was subsequently intubated. Patient has history of atrial fibrillation and hypertension and on Xarelto 20 mg daily, atorvastatin, HCTZ/ losartan, metoprolol. CT scan of the brain done at [facility] in [place] shows diffuse subarachnoid hemorrhage with intraventricular extension and early obstructive hydrocephalus developing. Dr. Mtz, neurosurgeon at [facility] was contacted and accepted transfer. 05/28: slight improvements, withdrawing to deep nailbed pressure. on cardene for hypertension. plan for angio today or tomorrow. 05/29: worsening neuro exam overnight. repeat head CT with effacement, slight compression of the brainstem. angiogram overnight without evidence of aneurysm or vasospasm. more hypotensive this morning on norepinephrine. flaccid x 4, no cough or gag. propofol turned off at 0600. 05/30: EEG with evidence of seizures. Keppra increased yesterday and Cerebryx loaded. this morning, on increasing vasopressor requirements. added phenylephrine on top of maximal levophed, vasopressin. echo with prelim hyperdynamic biventricular function. ICP stable. poor neurologic function. posturing in UEs. 05/31: vasopressors weaned overnight significantly, but remains on some support. repeat EEG improved with no evidence of ongoing ictal activity. ICP stable. this morning, no longer following commands in LEs, no longer posturing in upper extremities. discussed care with Dr. Mtz, will plan to go to CT/CTA brain to r /o vasospasm.06/01: CTA yesterday without evidence of vasospasm. TCDs negative today for vasospasm. still will intermittently follow commands in LEs, nothing in upper extremities. Na still very high, 160s. ICP well controlled. off vasopressors. 06/02: Na coming down slowly. TCDs pending for today. neuro exam stable. phenytoin level borderline high. 06/03: Tmax 100.4. Currently 99.1. Tolerating tube feeds at goal. Positive BM. Neuro exam remains stable. 3/6: Remains sedated, orally intubated on mechanical ventilation. Ventriculostomy in place. Cardene drip at 1 mg/h 06/05: Remains sedated, orally intubated on mechanical ventilation. Ventriculostomy in place. 38: AM laboratories currently pending. Afebrile. Noted cerebral angiogram without signs of vasospasm. 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 Dr. Mtz recommends per contains tracheostomy per RN. Tolerating tube feeding. 06/07: Tmax 99.5. Currently afebrile. Plan for cutaneous tracheostomy today. Ordered for PEG tube for a.m. Neurological unchanged with extension lower extremities flaccid upper extremities. 06/08: Tmax 100.8. This morning with acute episode acutely desaturated. Chest X-ray shows bilateral lower lobe infiltrates/pleural effusions. +600 cc past 24 hours. No bowel movement since 06/05. Status post PEG tube yesterday without complication. Subjective: 06/09: Afebrile. Desaturate yesterday requiring bronchoscopy. Thick white secretions noted throughout right in left lobes. Actually hard yellow secretions that coated the scope required multiple washings at end of ET tube probably causing desaturation. Currently down to 55%. Plan for tracheostomy today at 3 PM. 06/10 moderate vasospasm on TCD's on the right Lindegaard ratio 3.7, severe vasospasm on CTA Objective Vital Signs Date Time Temp Pulse Resp B/P Pulse Ox O2 Delivery O2 Flow Rate FiO2 06/10/16 13:00 99 50 06/10/16 06:00 86 06/10/16 04:00 98.8 20 160/72 Intake and Output 06/09/16 06/09/16 06/10/16 08:00 16:00 00:00 Intake Total 617 ml 956 ml 1135 ml Output Total 375 ml 349.0 ml 534 ml Balance 242 ml 607.0 ml 601 ml Result Diagram: 06/10/16 0444 06/10/16 0444 Other Results Microbiology Date/Time Procedure Status Source Growth 06/08/16 16:50 Gram Stain - Final Complete Bronchial Washings Right Lower Lobe 06/08/16 16:50 Bronchial Culture - Final Complete Staphylococcus Aureus Imaging Last Impressions Transcranial Doppler Study Complete 06/08/16 0215 Signed Impressions: Service Date/Time: Wednesday, June 08, 2016 07:52 - CONCLUSION: There are no findings to indicate vasospasm. Lauro Lamb MD Liver Ultrasound 06/08/16 Signed Impressions: Service Date/Time: Wednesday, June 08, 2016 14:00 - CONCLUSION: Ultrasound appearance of the liver and surrounding structures within normal limits. Lauro Logan MD Chest X-Ray 06/08/16 Signed Impressions: Service Date/Time: Wednesday, June 08, 2016 16:02 - CONCLUSION: 1. No pneumothorax or other acute complication seen after bronchoscopy. 2. Mild consolidation and small effusions of both bases, stable on the left and slightly improved on the right. Lauro Logan MD CT Angiography 06/08/16 Signed Impressions: Service Date/Time: Wednesday, June 08, 2016 11:54 - CONCLUSION: 1. Bilateral pleural effusions with compressive atelectasis. 2. No pulmonary embolus. Lauro Logan MD Abdomen/Pelvis CT 06/08/16 Signed Impressions: Service Date/Time: Wednesday, June 08, 2016 11:54 - CONCLUSION: 1. There is mild distention of the colon but there are no findings to indicate bowel obstruction. A small volume of free fluid is present within the abdomen and pelvis. 2. Anasarca along with a presacral edema. 3. Small to moderate-sized bilateral pleural effusions with associated compressive atelectasis. Lauro Lamb MD Cerebral Arteriogram 06/05/16 Signed Impressions: Service Date/Time: Sunday, June 05, 2016 00:00 - CONCLUSION: 1. No evidence of aneurysm 2. 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 I do not see a mass. Etiology for the hemorrhage is not apparent. Dillon Zaragoza MD FACR Brain MRI 06/01/16 Signed Impressions: Service Date/Time: Wednesday, June 01, 2016 12:14 - CONCLUSION: 1. Intraventricular blood, negative for mass. Dillon Zaragoza MD FACR Head CTA 3/2/17 0000 Signed Impressions: Service Date/Time: May 10:44 - CONCLUSION: 1. No evidence of vasospasm Brandon Herrera MD Head CT 05/31/16 0000 Signed Impressions: Service Date/Time: May 10:44 - CONCLUSION: Extensive subarachnoid hemorrhage including significant hemorrhage in the foramen magnum similar to the 05/29/16 exam. The ventricles do appear to be larger today with significant intraventricular hemorrhage present. Ventriculostomy catheter in good position. David Spencer MD Objective Remarks GENERAL: 66 year old female, critically ill currently orotracheally intubated SKIN: Warm and dry. No rash HEAD: Status post right frontal daqaun hole ventriculostomy EYES: PERRL. Around 5 mm bilaterally. Left sometimes 4 cm/ less than right. No scleral icterus. No injection or drainage. NECK: Supple, trachea midline. No JVD or lymphadenopathy. CARDIOVASCULAR: RRR. S1, S2 no sore. Without murmur RESPIRATORY: Breath sounds diminished in the bases bilaterally. Decreased air sounds anteriorly bilaterally. Few crackles appreciated bilaterally No wheezing. GASTROINTESTINAL: Abdomen soft, non-tender, nondistended. PEG tube site is clean dry and intact. Positive bowel sounds appreciated MUSCULOSKELETAL: With trace lower extremity edema Neuro: Currently no significant movement in uppers extremities, weakly withdrawals in her bilateral LEs. A/P Problem List: (1) Subarachnoid hemorrhage ICD Code: I60.9 Status: Acute (2) Atrial fibrillation ICD Code: I48.91 Status: Acute (3) Coagulopathy ICD Code: D68.9 Status: Acute (4) Respiratory failure ICD Code: J96.90 Status: Acute (5) Hypertension ICD Code: I10 Status: Acute Assessment and Plan Neuro/Psych: Spontaneous subarachnoid bleed Intracranial hypertension Malignant cerebral edema Seizures CT head subarachnoid hemorrhage MRI/A revealed no mass/source of bleeding EEG 05/31 revealed moderate encephalopathy. No epileptiform activity q1h neuro checks Nimodipine 60 mg every 4 hours for 21 days Four-vessel angiogram 05/29 negative for aneurysm of vasospasm. No FMD - unable to access left vertebral artery off sedation, as long as ICPs are controlled --s/p 3% nacl. slowly normalizing Na, eventual goal Na 140 - 145. hold free water --Keppra 1000 twice a day and Dilantin 100mg iv q12h. recheck phenytoin level 06/05 was 7.8. Recheck 06/10 --Dr. Mtz: neurosurgery -- CT/CTA 05/31: no evidence of vasospasm. -- daily TCDs, so far negative for vasospasm. --Negative cerebral angio to confirm 06/06. - 06/10 severe vasospasm in the most right cerebral arteries - Status post verapamil treatment by IR - HHH therapy with a systolic blood pressure goal 160-180 Respiratory: Acute Hypoxic and hypercarbic respiratory failure PRVC ventilation 14/500/1//55 Vent bundle -- Duo nebs every 6 hours As needed bronchodilator therapy Head of bed elevated Wean FiO2 for goal SPO2 greater than 92% CTA chest negative for PE. Positive bilateral lower lobe atelectasis and small to moderate bilateral pleural effusions Cardiovascular: Severe vasoplegia/Distributive Shock- resolving. History of hypertension Dyslipidemia History fibrillation/chronic Off vasopressors. - severe vasospasm Nimodipine 60 mg every 4 21 days - Pravachol Home medications are losartan/HCTZ 100/12.5 daily and metoprolol 25 mg twice a day. Hold all BP meds Pravachol 40 mg for vasospasm prevention Echocardiogram 05/31 revealed EF 65%. Moderate TR. POLO 54 mm Hg Renal: Parker for strict I's and O's -- Strict I/Os Avoid hypovolemia FEN/GI: Hypernatremia - resolving Acute protein calorie malnutrition- mild Hypokalemia Maintenance fluids normal saline. Avoid hypovolemia tube feeds, Jevity 1.5, goal 50 cc an hour -Pepcid twice a day for GI prophylaxis - Colace/Senokot for bowel regimen ICU electrolyte protocol Daily BMP Heme/ID: Coagulopathy secondary to Xarelto anticoagulation use for atrial fibrillation- resolved. Leukocytosis Daily CBC Status post K Centra Does not meet transfusion triggers at this time --holding Eliquis given SAH. Endocrine: Hyperglycemia of critical illness -- SSI, every 6 hours, medium scale Prophylaxis: GI Prophylaxis Pepcid iv q12h. DVT Prophylaxis -- SCDs Holding pharmacologic DVT prophylaxis given intracranial hemorrhage Lines: 05/27 right IJ triple lumen catheter removed 06/06. Currently PIV Parker EVD Critical Care: The total critical care time was 35 minutes. Time to perform other separately billable procedures was not included in the critical care time. Arslan Nino MD Jun 10, 2016 15:22 Arslan Nino MD Jun 10, 2016 15:22
--- NOTE | 2016-06-10 19:41 | HHI.NSPN ---
Note Status Status: Progress Note Interval History Diagnosis SAH Interval History This is a 66 years old female was transferred to [facility] from [facility] for a subarachnoid hemorrhage. The patient and the was vacationing from [place]. They were on the train. Patient's states that around 2:00 this afternoon she suddenly developed severe headache and then vomited, and then had a syncopal episode. The train stopped. EMS was called. EMS personnel state that patient had altered status was able to follow commands and beginning without focal neurological deficit. No seizure activity. No tongue bitting. No tonic clonic movements. no incontinence of stool or urine. She was transported to [facility] in [place]. On the way to the hospital, she developed respiratory problem and patient was subsequently endotracheally intubated. She has history of atrial fibrillation and hypertension and was anticoagulated with Xarelto 20 mg daily. In addition she takes atorvastatin, HCTZ/ losartan, metoprolol. CT scan of the brain done at [facility] in [place] shows extensive subarachnoid and intraventricular hemorrhage with early obstructive hydrocephalus developing. She was placed given propofol and Cardene drip. Cardene drip and propofol was stopped secondary to hypotension on the way to the ED. Neurosurgical consultation was requested 05/28: intubated and sedated, s/p placement of ventriculostomy drain. CTA Brain neg for aneurysm, for cerebral angiography today, 05/29: seen this am during am round, withdrawing in the lower extremities, did not open eyes or follow commands for me, was reported to have followed with nursing. Cerebral angiography yesterday was neg for aneurysm. Then sergei Mario , patient having seizures, and posturing. ICPs has been 8-10, nursing reports EVD draining, CSF blood tinged. Transcranial doppler early this am negative for vasospasm 3/1: extends in uppers, withdraws in LEs 3/2: minimal withdrawals in the lower extremities, and extension. f/u CT Brain shows increased ventriculomegaly. CTA Head unremarkable for intracranial aneurysm. f/u EEG reports severe encephalopathy. ICPs at highest 8 overnight. 06/01: this morning slightly wiggled toes to command. ICPs below 5, EVD draining blood tinged CSF. 06/04: slightly opening eyes, EVD draining dark red CSF at 10 cm H20, ICPs at highest 8 overnight. 06/05: ICPs stable overnight, opening eyes. No reports of seizure like activities overnight. EVD continues to drain well. 06/06: cerebral angio completed yesterday, otherwise no neuro changes overnight. EVD draining, with stable ICPs. 06/07: opens eyes to pain stim, withdraws LE's, CSF dark red with stable ICPs 06/08: intubated, moderate eye opening, not tracking, not following commands. 06/09. Neurologically stable. Open eyes. Intermittently follow commands. Follow up TCD's 06/09. Stop following commands. TCD's showed severe vasospasm. CFor emergency CTA Labs, Micro, & Vital Signs Labs, Micro, & Vital Signs Results Date Time Temp Pulse Resp B/P Pulse Ox O2 Delivery O2 Flow Rate FiO2 06/09/16 13:08 100 55 06/09/16 07:57 100 55 06/09/16 06:00 95 06/09/16 05:26 100 55 06/09/16 04:00 95 06/09/16 04:00 99.9 92 20 148/64 100 06/09/16 04:00 60 06/09/16 02:00 95 06/09/16 00:30 99 55 06/09/16 00:00 99.1 96 20 144/60 100 06/09/16 00:00 60 06/08/16 22:28 98 55 06/08/16 22:00 100 06/08/16 20:00 60 06/08/16 20:00 99.3 100 21 140/58 99 06/08/16 20:00 100 06/08/16 18:00 95 06/08/16 17:39 98 60 06/08/16 16:00 50 06/08/16 16:00 100.0 103 20 134/58 92 06/08/16 16:00 103 06/08/16 15:40 100 100 06/08/16 14:37 100 100 06/08/16 14:00 110 06/09/16 07:00 Intake Total 2466 ml Output Total 3104 ml Balance -638 ml Constitutional Vital Signs Date Time Temp Pulse Resp B/P Pulse Ox O2 Delivery O2 Flow Rate FiO2 06/09/16 13:08 100 55 06/09/16 07:57 100 55 06/09/16 06:00 95 06/09/16 05:26 100 55 06/09/16 04:00 95 06/09/16 04:00 99.9 92 20 148/64 100 06/09/16 04:00 60 06/09/16 02:00 95 06/09/16 00:30 99 55 06/09/16 00:00 99.1 96 20 144/60 100 06/09/16 00:00 60 06/08/16 22:28 98 55 06/08/16 22:00 100 06/08/16 20:00 60 06/08/16 20:00 99.3 100 21 140/58 99 06/08/16 20:00 100 06/08/16 18:00 95 06/08/16 17:39 98 60 06/08/16 16:00 50 06/08/16 16:00 100.0 103 20 134/58 92 06/08/16 16:00 103 06/08/16 15:40 100 100 06/08/16 14:37 100 100 06/08/16 14:00 110 06/09/16 07:00 Intake Total 2466 ml Output Total 3104 ml Balance -638 ml Review of Systems/Exam Review of Systems/Exam Exam Ms. Michaels is intubated. eye opening to sternal rub, she does intermittently follow commands with her lower extremities. Right ventriculostomy drain at 10 cm H20, draining well, dark red CSF, ICPs within normal limits Cranial Nerves: Pupils 4 mm b/l reactive to 3 mm. She responds to visual threat. Sensorimotor: no spontaneous movements seen, withdraws lower extremities to local stimuli, no withdrawals in the UE to pain stimuli Plantars equivocal. Cerebellar: cannot assess due to her condition Medications Medications Current Medications Current Medications Nicardipine HCl 25 mg/Sodium Chloride 260 ml @ 0 mls/hr TITRATE IV ; Start 05/27 at 19:45; Stop 05/27/16 at 20:58; Status DC Propofol 100 ml @ 0 mls/hr TITRATE IV Last administered on 05/28/16t 23:16; Start 05/27/16 at 19:45 Sodium Chloride 1,000 ml @ 70 mls/hr [id number] IV Last administered on 20:07; Start 05/27/16 at 20:00; Stop 05/27/16 at 20:57; Status DC Prothrombin Complex Concent (Human) 4000 units/Syringe / Bag 0 ml @ 8 mls/min ONCE ONCE IV Last administered on 05/27/16 21:03; Start 05/27/16 at 20:45; Stop 05/27/16 at 20:46; Status DC Sodium Chloride (NS 1000 ml Inj) 1,000 ml @ 75 mls/hr [id number] IV Last administered on 06/09/16 06:33; Start 05/27/16 at 21:00; Stop 06/09/16 at 13:15 ; Status DC IV Flush (NS Flush) 2 ml UNSCH PRN IV FLUSH FLUSH AFTER USING IV ACCESS Last administered on 05/27/16 22:30; Start 05/27/16 at 20:45 IV Flush (NS Flush) 2 ml BID IV FLUSH Last administered on 06/10/16 08:45; Start 05/27/16 at 21:00 Acetaminophen (Tylenol) 650 mg Q6H PRN PO PAIN 1-10 AND/OR FEVER >101F Last administered on 06/07/16 17:14; Start 05/27/16 at 20:45 Morphine Sulfate (Morphine Inj) 2 mg Q2H PRN IV PAIN SCALE 6 TO 10; Start 05/27 at 20:45; Stop 05/29/16 at 13:33; Status DC Famotidine (Pepcid Inj) 20 mg Q12HR IV PUSH Last administered on 06/10/16 08: 45; Start 05/27/16 at 21:00 Artificial Tears (Tears Naturale Opth Soln) 1 drop TID EACH EYE Last administered on 06/10/16 16:52; Start 05/28/16 at 09:00 Ondansetron HCl (Zofran Inj) 4 mg Q6H PRN IV NAUSEA OR VOMITING; Start at 20:45 Metoclopramide HCl (Reglan Inj) 10 mg Q6H PRN IV NAUSEA OR VOMITING; Start at 20:45; Stop 05/29/16 at 13:33; Status DC Docusate Sodium (Colace Liq) 100 mg Q12H G-TUBE Last administered on 06/10/16 08:44; Start 05/27/16 at 20:45 Albuterol/ Ipratropium (Duoneb Neb) 1 ampule Q2HR NEB PRN INH WHEEZING; Start 05/27/16 at 20:45 Miscellaneous Information 1 [id number] Last administered on 05/27/16 20:45; Start 05/27/16 at 20:45 Chlorhexidine Gluconate (Chlorhexidine 2% Cloth) Taper DAILY@04 TOP Last administered on 06/09/16 04:00; Start 05/28/16 at 04:00; Stop 05/24/17 at 03:59 Chlorhexidine Gluconate 3 pack 3 pack UNSCH PRN TOP HYGIENIC CARE; Start at 20:45 Nicardipine HCl/ Sodium Chloride (Cardene Inj/NS 250 ml Inj) 260 ml @ 0 mls/hr TITRATE IV Last administered on 06/09/16 15:00; Start 05/27/16 at 21:00 Nimodipine (Nimotop) 60 mg Q4HR PO Last administered on 06/10/16 16:51; Start 05/28/16 at 00:00 Pravastatin Sodium (Pravachol) 40 mg HS PO Last administered on 06/09/16 19:50 ; Start 05/27/16 at 21:00 Hydralazine HCl 20 mg 20 mg STK-MED ONCE .ROUTE ; Start 05/27/16 at 20:54; Stop 05/27/16 at 20:55; Status DC Mannitol 50 ml @ As Directed STK-MED ONCE .ROUTE ; Start 05/27/16 at 21:07; Stop 05/27/16 at 21:08; Status DC Mannitol 50 ml @ As Directed STK-MED ONCE .ROUTE ; Start 05/27/16 at 21:12; Stop 05/27/16 at 21:13; Status DC Sodium Chloride 500 ml @ 20 mls/hr UNSCH IV Last administered on 05/29/16 23: 27; Start 05/27/16 at 21:30; Stop 06/01/16 at 11:28; Status DC Levetriacetam 100 ml @ 400 mls/hr BOLUS ONCE IV Last administered on 22:09; Start 05/27/16 at 21:30; Stop 05/27/16 at 21:44; Status DC Levetriacetam (Keppra 1000 Mg Inj) 100 ml @ 400 mls/hr Q12HR IV Last administered on 06/10/16 08:45; Start 05/28/16 at 09:00 Epinephrine HCl (EPINEPHrine (1:10,000) INJ) 1 mg STK-MED ONCE .ROUTE ; Start at 22:22; Stop 05/27/16 at 22:23; Status DC Lidocaine HCl (Xylocaine 2% Inj) 100 mg STK-MED ONCE .ROUTE ; Start 05/27/16 at 22:22; Stop 05/27/16 at 22:23; Status DC Atropine Sulfate 1 mg 1 mg STK-MED ONCE .ROUTE ; Start 05/27/16 at 22:22; Stop 05/27/16 at 22:23; Status DC Norepinephrine Bitartrate 250 ml @ As Directed STK-MED ONCE IV ; Start at 22:34; Stop 05/27/16 at 22:35; Status DC Norepinephrine Bitartrate (Levophed-Dextrose Drip) 250 ml @ 0 mls/hr TITRATE IV ; Start 05/27/16 at 22:45; Stop 05/28/16 at 02:04; Status DC Terbutaline Sulfate (Brethine Inj) 1 mg UNSCH PRN SQ For Extravasation; Start 05/27/16 at 22:45; Stop 06/01/16 at 11:28; Status DC Norepinephrine Bitartrate (Levophed Inj) 4 mg STK-MED ONCE .ROUTE ; Start at 22:46; Stop 05/27/16 at 22:47; Status DC Iohexol (Omnipaque 350 Inj) 100 ml STK-MED ONCE IV Last administered on 23:12; Start 05/27/16 at 23:12; Stop 05/27/16 at 23:13; Status DC Hydralazine HCl 20 mg 20 mg STAT ONCE IVS Last administered on 05/27/16 21:10 ; Start 05/28/16 at 01:00; Stop 05/28/16 at 01:03; Status DC Potassium Chloride 100 ml @ 50 mls/hr Q2H PRN IV For Potassium 2.8 - 3.2 mEq/ L Last administered on 06/04/16 13:40; Start 05/28/16 at 01:45 Potassium Chloride (KCl 20 Meq Premix Inj) 100 ml @ 50 mls/hr Q2H PRN IV For Potassium 2.8 - 3.2 mEq/L Last administered on 06/09/16 15:01; Start 05/28/16 at 01:45 Potassium Chloride 40 meq 40 meq UNSCH PRN PO/TUBE For Potassium 3.3 - 3.5 mEq/ L Last administered on 06/08/16 00:40; Start 05/28/16 at 01:45 Potassium Chloride 100 ml @ 25 mls/hr UNSCH PRN IV For Potassium 3.3 - 3.5 mEq /L Last administered on 05/30/16 18:33; Start 05/28/16 at 01:45 Potassium Chloride 100 ml @ 50 mls/hr Q2H PRN IV For Potassium 3.3 - 3.5 mEq/ L Last administered on 06/02/16 08:34; Start 05/28/16 at 01:45 Magnesium Sulfate/ Sodium Chloride (Magnesium Sulfate Inj/NS Inj) 100 ml @ 50 mls/hr UNSCH PRN IV For Magnesium 0.9 - 1.1 mg/dL; Start 05/28/16 at 01:45 Magnesium Oxide 800 mg 800 mg UNSCH PRN PO For Magnesium 1.2 - 1.6 mg/dL; Start 05/28/16 at 01:45 Magnesium Sulfate/ Sodium Chloride (Magnesium Sulfate Inj/NS Inj) 100 ml @ 50 mls/hr UNSCH PRN IV For Magnesium 1.2 - 1.6 mg/dL Last administered on 13:40; Start 05/28/16 at 01:45 Potassium Phosphate 2000 mg 2,000 mg Q4H PRN PO For Phosphorus < 2.5 mg/dL; Start 05/28/16 at 01:45 Sodium Phosphate/ Sodium Chloride (Sodium Phosphate Inj/NS 250 ml Inj) 250 ml @ 42 mls/hr UNSCH PRN IV For Phosphorus < 2.5 mg/dL Last administered on 08:45; Start 05/28/16 at 01:45 Potassium Chloride (KCl 40 Meq/30 ml Liq) 40 meq UNSCH PRN PO/TUBE SEE LABEL COMMENTS Last administered on 06/03/16 05:31; Start 05/28/16 at 01:45 Potassium Phosphate 2000 mg 2,000 mg UNSCH PRN PO/TUBE SEE LABEL COMMENTS; Start 05/28/16 at 01:45 Potassium Phosphate/Sodium Chloride (Potassium Phosphate Inj/NS 250 ml Inj) 260 ml @ 42 mls/hr UNSCH PRN IV SEE LABEL COMMENTS Last administered on 06/08/16 17:09; Start 05/28/16 at 01:45 Mannitol 80 gm 80 gm STAT ONCE IV Last administered on 05/27/16 21:10; Start 05/28/16 at 02:15; Stop 05/28/16 at 02:16; Status DC Norepinephrine Bitartrate (Levophed-Dextrose Drip) 250 ml @ 0 mls/hr TITRATE IV Last administered on 05/29/16 19:02; Start 05/28/16 at 02:15; Stop 05/29/16 at 19:45; Status DC Nicardipine HCl 25 mg 25 mg STK-MED ONCE .ROUTE ; Start 05/28/16 at 06:52; Stop 05/28/16 at 06:53; Status DC Sodium Chloride (NS 250 ml Inj) 250 ml @ As Directed STK-MED ONCE .ROUTE ; Start 05/28/16 at 06:52; Stop 05/28/16 at 06:53; Status DC Nicardipine HCl (Cardene Inj) 25 mg STK-MED ONCE .ROUTE ; Start 05/28/16 at 06: 55; Stop 05/28/16 at 06:56; Status DC Epinephrine HCl (EPINEPHrine (1:10,000) INJ) 1 mg STK-MED ONCE .ROUTE ; Start at 22:20; Stop 05/28/16 at 22:21; Status DC Lidocaine HCl (Xylocaine 2% Inj) 100 mg STK-MED ONCE .ROUTE ; Start 05/28/16 at 22:20; Stop 05/28/16 at 22:21; Status DC Atropine Sulfate (Atropine Inj) 1 mg STK-MED ONCE .ROUTE ; Start 05/28/16 at 22: 20; Stop 05/28/16 at 22:21; Status DC Verapamil HCl (Isoptin Inj) 10 mg STK-MED ONCE .ROUTE ; Start 05/28/16 at 23:45 ; Stop 05/28/16 at 23:46; Status DC Dextrose (D50w (Vial) Inj) 25 ml UNSCH PRN IV PUSH HYPOGLYCEMIA-SEE COMMENTS; Start 05/29/16 at 07:30 Insulin Human Regular (NovoLIN R SUPPLEMENTAL SCALE) 1 Q6HR SQ Last administered on 06/10/16 06:00; Start 05/29/16 at 12:00 Iodixanol 121 ml 121 ml STK-MED ONCE I-ARTERIAL Last administered on 05/29/16 01:00; Start 05/29/16 at 01:00; Stop 05/29/16 at 11:40; Status DC Fosphenytoin Sodium/Sodium Chloride (Cerebyx Inj/NS Inj) 70 ml @ 280 mls/hr ONCE ONCE IV Last administered on 05/29/16 14:09; Start 05/29/16 at 15:00; Stop 05/29/16 at 15:14; Status DC Fosphenytoin Sodium (Cerebyx Inj) 200 mgpe Q12HR IV Last administered on 20:41; Start 05/29/16 at 21:00; Stop 06/02/16 at 08:21; Status DC Norepinephrine Bitartrate 4 mg 4 mg STK-MED ONCE .ROUTE ; Start 05/29/16 at 18: 34; Stop 05/29/16 at 18:35; Status DC Sodium Chloride 500 ml @ 500 mls/hr Q1H ONCE IV Last administered on 17:20; Start 05/29/16 at 18:45; Stop 05/29/16 at 19:44; Status DC Norepinephrine Bitartrate 4 mg/ Sodium Chloride 250 ml @ 0 mls/hr TITRATE IV Last administered on 05/30/16 07:11; Start 05/29/16 at 19:45; Stop 05/30/16 at 09 :40; Status DC Vasopressin 40 units/Dextrose 100 ml @ 6 mls/hr [id number] IV ; Start 05/29/16 at 21:00; Stop 05/29/16 at 21:00; Status DC Vasopressin/ Sodium Chloride (Pitressin Inj/ NS Inj) 102 ml @ 6.12 mls/hr [id number] IV Last administered on 05/31/16 05:43; Start 05/29/16 at 21:00; Stop 06/01/16 at 11:28; Status DC Hydrocortisone Sodium Succinate 50 mg 50 mg Q6H IV PUSH Last administered on 08:33; Start 05/30/16 at 09:00; Stop 06/01/16 at 11:29; Status DC Phenylephrine HCl 160 mg/Dextrose 500 ml @ 0 mls/hr TITRATE IV ; Start 05/30/16 at 09:45; Stop 05/30/16 at 09:51; Status DC Norepinephrine Bitartrate 16 mg/ Sodium Chloride 262 ml @ 0 mls/hr TITRATE IV ; Start 05/30/16 at 09:45; Stop 06/08/16 at 10:35; Status DC Phenylephrine HCl/ Sodium Chloride (Neosynephrine Inj/NS 500 ml Inj) 500 ml @ 0 mls/hr TITRATE IV Last administered on 05/30/16 17:50; Start 05/30/16 at 10:00; Stop 06/01/16 at 11:29; Status DC Epinephrine HCl (EPINEPHrine (1:10,000) INJ) 1 mg STK-MED ONCE .ROUTE ; Start at 10:08; Stop 05/31/16 at 10:09; Status DC Lidocaine HCl (Xylocaine 2% Inj) 100 mg STK-MED ONCE .ROUTE ; Start 05/31/16 at 10:08; Stop 05/31/16 at 10:09; Status DC Atropine Sulfate (Atropine Inj) 1 mg STK-MED ONCE .ROUTE ; Start 05/31/16 at 10: 08; Stop 05/31/16 at 10:09; Status DC Iohexol (Omnipaque 350 Inj) 91 ml STK-MED ONCE IV Last administered on 10:56; Start 05/31/16 at 10:56; Stop 05/31/16 at 10:57; Status DC Water (Free Water) 200 ml Q6HR OG Last administered on 06/01/16 11:09; Start at 12:00; Stop 06/01/16 at 16:45; Status DC Epinephrine HCl (EPINEPHrine (1:10,000) INJ) 1 mg STK-MED ONCE .ROUTE ; Start at 11:27; Stop 06/01/16 at 11:28; Status DC Lidocaine HCl (Xylocaine 2% Inj) 100 mg STK-MED ONCE .ROUTE ; Start 06/01/16 at 11:28; Stop 06/01/16 at 11:29; Status DC Atropine Sulfate (Atropine Inj) 1 mg STK-MED ONCE .ROUTE ; Start 06/01/16 at 11: 28; Stop 06/01/16 at 11:29; Status DC Gadodiamide (Omniscan Pf Inj) 16 ml STK-MED ONCE IV Last administered on 12:50; Start 06/01/16 at 12:50; Stop 06/01/16 at 12:51; Status DC Water 300 ml 300 ml Q4HR OG Last administered on 06/03/16 03:10; Start 06/01/16 at 20:00; Stop 06/03/16 at 16:34; Status DC Sodium Chloride (NS 1000 ml Inj) 1,000 ml @ 999 mls/hr BOLUS ONCE IV Last administered on 06/01/16 16:49; Start 06/01/16 at 16:45; Stop 06/01/16 at 17:45; Status DC Fosphenytoin Sodium (Cerebyx Inj) 100 mgpe Q12HR IV Last administered on 08:44; Start 06/02/16 at 09:00 Albuterol/ Ipratropium (Duoneb Neb) 1 ampule Q6HR NEB NEB Last administered on 06/10/16 15:04; Start 06/03/16 at 16:00 Lidocaine HCl (Xylocaine 2% Inj) 100 mg STK-MED ONCE .ROUTE ; Start 06/04/16 at 10:51; Stop 06/04/16 at 10:52; Status DC Atropine Sulfate 1 mg 1 mg STK-MED ONCE .ROUTE ; Start 06/04/16 at 10:51; Stop at 10:52; Status DC Magnesium Sulfate/ Dextrose (Magnesium Sulfate 1 Gm Premix) 100 ml @ As Directed STK-MED ONCE .ROUTE ; Start 06/04/16 at 13:18; Stop 06/04/16 at 13:19; Status DC Epinephrine HCl (EPINEPHrine (1:10,000) INJ) 1 mg STK-MED ONCE .ROUTE ; Start at 10:22; Stop 06/05/16 at 10:23; Status DC Lidocaine HCl (Xylocaine 2% Inj) 100 mg STK-MED ONCE .ROUTE ; Start 06/05/16 at 10:22; Stop 06/05/16 at 10:23; Status DC Atropine Sulfate (Atropine Inj) 1 mg STK-MED ONCE .ROUTE ; Start 06/05/16 at 10: 22; Stop 06/05/16 at 10:23; Status DC Midazolam HCl (Versed Inj) 5 mg STK-MED ONCE .ROUTE ; Start 06/05/16 at 11:29; Stop 06/05/16 at 11:30; Status DC Fentanyl Citrate (fentaNYL INJ) 250 mcg STK-MED ONCE .ROUTE ; Start 06/05/16 at 11:29; Stop 06/05/16 at 11:30; Status DC Iodixanol (Visipaque 320 Inj) 172 ml STK-MED ONCE I-ARTERIAL Last administered on 06/05/16 12:15; Start 06/05/16 at 12:51; Stop 06/05/16 at 12:52; Status DC Sennosides (Senna Liq) 8.8 mg BID PO/TUBE Last administered on 06/10/16 08:45 ; Start 06/07/16 at 09:00 Polyethylene Glycol (Miralax) 17 gm DAILY PO Last administered on 06/07/16 09: 10; Start 06/07/16 at 09:00; Stop 06/08/16 at 10:35; Status DC Glycerin (Glycerin Adult Supp) 2 gm BID PRN RECTAL CONSTIPATION; Start 06/07/16 at 09:00 Lactulose (Lactulose Liq) 30 ml ONCE ONCE PO Last administered on 06/07/16 09: 10; Start 06/07/16 at 09:00; Stop 06/07/16 at 09:01; Status DC Potassium Chloride 40 meq 40 meq ONCE ONCE PO Last administered on 06/07/16 09 :11; Start 06/07/16 at 09:00; Stop 06/07/16 at 09:02; Status DC Magnesium Sulfate/ Dextrose 100 ml @ 100 mls/hr Q1H IV Last administered on 12:28; Start 06/07/16 at 10:00; Stop 06/07/16 at 11:59; Status DC Cefazolin Sodium/ Dextrose (Ancef 2 Gm Premix) 50 ml @ 100 mls/hr SPOT CHECKER ONCE IV Last administered on 06/07/16 14:48; Start 06/07/16 at 12:45; Stop at 13:14; Status DC Cefazolin Sodium (Ancef Inj) 1,000 mg STK-MED ONCE IV Last administered on 15:14; Start 06/07/16 at 15:14; Stop 06/07/16 at 15:48; Status DC Propofol (Diprivan 200 Mg/20 ml Inj) 50 mg STK-MED ONCE IV Last administered on 06/07/16 15:15; Start 06/07/16 at 15:15; Stop 06/07/16 at 15:52; Status DC Polyethylene Glycol (Miralax) 17 gm BID PO Last administered on 06/10/16 08:45 ; Start 06/08/16 at 21:00 Iohexol (Omnipaque 350 Inj) 65 ml STK-MED ONCE IV Last administered on 12:01; Start 06/08/16 at 12:01; Stop 06/08/16 at 12:02; Status DC Bumetanide (Bumex Inj) 1 mg ONCE ONCE IV PUSH Last administered on 06/08/16 13:49; Start 06/08/16 at 13:45; Stop 06/08/16 at 13:46; Status DC Fentanyl Citrate (fentaNYL INJ) 50 mcg ONCE ONCE IV PUSH Last administered on 06/08/16 15:20; Start 06/08/16 at 16:00; Stop 06/08/16 at 16:01; Status DC Midazolam HCl (Versed Inj) 5 mg ONCE ONCE IV PUSH Last administered on 15:20; Start 06/08/16 at 16:00; Stop 06/08/16 at 16:01; Status DC Rocuronium [place] (Zemuron Inj) 50 mg BOLUS ONCE IV Last administered on 06/08 16:00; Start 06/08/16 at 16:00; Stop 06/08/16 at 16:01; Status DC Norepinephrine Bitartrate (Levophed Inj) 4 mg STK-MED ONCE .ROUTE Last administered on 06/08/16 15:27; Start 06/08/16 at 15:27; Stop 06/08/16 at 15:28 ; Status DC Sodium Chloride (Sodium Chloride 3% Neb) 2 ml Q6HR NEB NEB Last administered on 06/10/16 15:04; Start 06/08/16 at 17:00; Stop 06/11/16 at 16:59 Nicardipine HCl 25 mg 25 mg STK-MED ONCE .ROUTE ; Start 06/08/16 at 20:46; Stop 06/08/16 at 20:47; Status DC Sodium Chloride (NS 250 ml Inj) 250 ml @ As Directed STK-MED ONCE .ROUTE ; Start 06/08/16 at 20:46; Stop 06/08/16 at 20:47; Status DC Fentanyl Citrate (fentaNYL INJ) 50 mcg ONCE ONCE IV PUSH Last administered on 06/09/16 15:15; Start 06/09/16 at 12:45; Stop 06/09/16 at 12:46; Status DC Midazolam HCl (Versed Inj) 5 mg ONCE ONCE IV PUSH Last administered on 15:15; Start 06/09/16 at 12:45; Stop 06/09/16 at 12:46; Status DC Rocuronium [place] (Zemuron Inj) 50 mg BOLUS ONCE IV Last administered on 06/09 15:15; Start 06/09/16 at 12:45; Stop 06/09/16 at 12:46; Status DC Losartan Potassium (Cozaar) 25 mg DAILY PO Last administered on 06/10/16 08:45 ; Start 06/09/16 at 15:00 Hydrochlorothiazide (Microzide) 12.5 mg DAILY PO Last administered on 08:45; Start 06/10/16 at 09:00 Carvedilol (Coreg) 6.25 mg Q12HR PO Last administered on 06/10/16 08:45; Start 06/09/16 at 21:00 Phenylephrine HCl (Neosynephrine Inj) 10 mg STK-MED ONCE .ROUTE ; Start at 09:59; Stop 06/10/16 at 10:00; Status DC Phenylephrine HCl (Neosynephrine Inj) 30 mg STK-MED ONCE .ROUTE ; Start at 10:00; Stop 06/10/16 at 10:01; Status DC Iohexol (Omnipaque 350 Inj) 83 ml STK-MED ONCE IV Last administered on 11:03; Start 06/10/16 at 11:03; Stop 06/10/16 at 11:04; Status DC Verapamil HCl (Isoptin Inj) 10 mg STK-MED ONCE .ROUTE Last administered on 06/10 12:53; Start 06/10/16 at 12:53; Stop 06/10/16 at 12:54; Status DC Verapamil HCl (Isoptin Inj) 10 mg STK-MED ONCE .ROUTE Last administered on 06/10 13:29; Start 06/10/16 at 13:29; Stop 06/10/16 at 13:30; Status DC Verapamil HCl (Isoptin Inj) 5 mg STK-MED ONCE .ROUTE Last administered on 13:53; Start 06/10/16 at 13:53; Stop 06/10/16 at 13:54; Status DC Verapamil HCl (Isoptin Inj) 10 mg STK-MED ONCE .ROUTE Last administered on 06/10 13:54; Start 06/10/16 at 13:54; Stop 06/10/16 at 13:55; Status DC Verapamil HCl (Isoptin Inj) 5 mg STK-MED ONCE .ROUTE Last administered on 13:59; Start 06/10/16 at 13:59; Stop 06/10/16 at 14:00; Status DC Iodixanol (Visipaque 320 Inj) 100 ml STK-MED ONCE I-ARTERIAL Last administered on 06/10/16 14:23; Start 06/10/16 at 14:19; Stop 06/10/16 at 14:20; Status DC Medical Decision Making Medical Decision Making MDM Remarks Last Impressions Transcranial Doppler Study Complete 05/28/16 0000 Signed Impressions: Service Date/Time: Saturday, May 28, 2016 07:58 - CONCLUSION: Negative for base line study for vasospasm.. Dillon Zaragoza MD FACR Chest X-Ray 05/27/161940 Signed Impressions: Service Date/Time: Friday, May 27, 2016 20:01 - CONCLUSION: No acute disease. Adequate placement of endotracheal tube. Juvencio Encarnacion MD Head CTA 05/27/16 0000 Signed Impressions: Service Date/Time: Friday, May 27, 2016 23:03 - CONCLUSION: 1. No intercranial aneurysm identified by CT angiography. Perez Zaragoza MD Plan Plan Plan Remarks 66 y/o female with subarachnoid hemorrhage suspected intracranial aneurysm, placement of ventriculostomy drain, ICPs remains within normal range CTA Head x 2 negative for aneurysm, Cerebral angiography neg for aneurysm, repeat cerebral angio 06/05/16 again neg for intracranial aneurysm MRI Brain and C spine without mass lesions Labs, Micro, & Vital Signs Results Date Time Temp Pulse Resp B/P Pulse Ox O2 Delivery O2 Flow Rate FiO2 06/10/16 16:35 100 50 06/10/16 13:00 99 50 06/10/16 11:53 100 50 06/10/16 10:30 100 50 06/10/16 09:20 99 50 06/10/16 09:20 50 06/10/16 09:12 100 50 06/10/16 08:00 70 06/10/16 06:00 86 06/10/16 04:23 100 50 06/10/16 04:00 92 06/10/16 04:00 70 06/10/16 04:00 98.8 94 20 160/72 100 06/10/16 02:05 100 50 06/10/16 00:00 70 06/10/16 00:00 98.8 90 20 135/60 100 06/10/16 00:00 92 06/09/16 22:00 92 06/09/16 20:25 98 70 06/09/16 20:00 92 06/09/16 20:00 70 06/09/16 20:00 98.4 96 20 138/63 98 Automatic Cuff 06/10/16 07:00 Intake Total 2837 ml Output Total 1324.0 ml Balance 1513.0 ml Constitutional Vital Signs Date Time Temp Pulse Resp B/P Pulse Ox O2 Delivery O2 Flow Rate FiO2 06/10/16 16:35 100 50 06/10/16 13:00 99 50 06/10/16 11:53 100 50 06/10/16 10:30 100 50 06/10/16 09:20 99 50 06/10/16 09:20 50 06/10/16 09:12 100 50 06/10/16 08:00 70 06/10/16 06:00 86 06/10/16 04:23 100 50 06/10/16 04:00 92 06/10/16 04:00 70 06/10/16 04:00 98.8 94 20 160/72 100 06/10/16 02:05 100 50 06/10/16 00:00 70 06/10/16 00:00 98.8 90 20 135/60 100 06/10/16 00:00 92 06/09/16 22:00 92 06/09/16 20:25 98 70 06/09/16 20:00 92 06/09/16 20:00 70 06/09/16 20:00 98.4 96 20 138/63 98 Automatic Cuff 06/10/16 07:00 Intake Total 2837 ml Output Total 1324.0 ml Balance 1513.0 ml Review of Systems/Exam Exam Ms. Michaels is intubated, ventilated. eye opening to sternal rub, no commands. Right ventriculostomy drain at 10 cm H20, draining well, dark red CSF, ICPs < 5 Cranial Nerves: Pupils 4 mm b/l reactive to 3 mm. There is response to visual threat. bilat corneals Sensorimotor: withdraws lower extremities to local stimuli Cerebellar: cannot assess due to her condition Medical Decision Making MDM Remarks Last Impressions Transcranial Doppler Study Complete 05/28/16 0000 Signed Impressions: Service Date/Time: Saturday, May 28, 2016 07:58 - CONCLUSION: Negative for base line study for vasospasm.. Dillon Zaragoza MD FACR Chest X-Ray 05/27/161940 Signed Impressions: Service Date/Time: Friday, May 27, 2016 20:01 - CONCLUSION: No acute disease. Adequate placement of endotracheal tube. Juvencio Encarnacion MD Head CTA 05/27/16 0000 Signed Impressions: Service Date/Time: Friday, May 27, 2016 23:03 - CONCLUSION: 1. No intercranial aneurysm identified by CT angiography. Perez Zaragoza MD Attending Statement Continue neuro checks. TCD showed severe vasospasm. Confirmed by CTA. For emergency angiography and angioplasty. Following her angioplasty, her neurological condition improved and again following commands. Continue CSF drainage via ventriculostomy Respiratory. Continue mechanical ventilation in assist contyrol mode of mechanical ventilation, pulmonary toilette, nasotracheal suction, and breathing treatments with nebulizers. Hypertension As needed Cardene to maintain systolic blood pressure less than 150. PT and OT eval Nutrition. tube feedings Renal. Continue to monitor closely urine output, BUN and creatinine Endocrine. Continue to Monitor serial Acu checks and SSI for tight control ID continue to monitor for signs of infection Continue Protonix for stress ulcer prophylaxis Continue Julio hose and SCD's for DVT prophylaxis Arcenio Mtz MD Jun 10, 2016 19:41
[2016-06-10] MEDS: PRAVASTATIN SOD 40 MG TAB PO SCH (19:47)
[2016-06-10] MEDS: SODIUM CHLOR 0.9% 1000 ML INJ 1,000 ML IV SCH (20:11)
[2016-06-11] VITALS (18 sets, daily range): BP systolic 150–176; BP diastolic 63–80; PULSE 81–92; RESP 20–21; TEMP 98.2–99; O2SAT 94–100
[2016-06-11] MEDS: SODIUM CHLOR 0.9% 1000 ML INJ 1,000 ML IV SCH ×4 (00:51→15:38)
[2016-06-11] MEDS: CHLORHEXIDINE GLUCONATE 2 % 1 PACK (2 CLOTHS) TOP SCH (03:10)
[2016-06-11] MEDS: niMODipine 30 MG CAP PO SCH ×5 (03:10→20:34)
[2016-06-11 03:49] LABS: AUTOMATED NEUTROPHIL # 9.6 TH/MM3 (1.8-7.7); BASOPHIL % 0.3 % (0.0-2.0); EOSINOPHIL # 0.1 TH/MM3 (0-0.4); EOSINOPHIL % 0.6 % (0.0-4.0); HEMATOCRIT 23.4 % (35.0-46.0); HEMO FLAGS DIFF FINAL; LYMPH % 6.4 % (9.0-44.0); LYMPHOCYTE # 0.7 TH/MM3 (1.0-4.8); MEAN CELL VOLUME 89.2 FL (80.0-100.0); MEAN CORPUSCULAR HEMOGLOBIN 30.9 PG (27.0-34.0); MEAN CORPUSCULAR HGB CONC 34.7 % (32.0-36.0); MONO % 5.3 % (0.0-8.0); NEUT % 87.4 % (16.0-70.0); PLATELET COUNT 551 TH/MM3 (150-450); RED BLOOD COUNT 2.63 MIL/MM3 (4.00-5.30); RED CELL DISTRIBUTION WIDTH 13.7 % (11.6-17.2)
[2016-06-11] MEDS: RESP: ALBUTEROL 2.5 MG/IPRATROPIUM 0.5 MG NEB (SCH) NEB (03:51)
[2016-06-11 04:13] LABS: ANION GAP 9 MEQ/L (5-15); AST (GOT) 256 U/L (15-37); BICARBONATE 27.3 MEQ/L (21.0-32.0); BLOOD UREA NITROGEN 6 MG/DL (7-18); CHLORIDE 101 MEQ/L (98-107); GLOMERULAR FILTRATION RATE 231 ML/MIN (>89); MAGNESIUM 1.9 MG/DL (1.5-2.5); POTASSIUM 3.1 MEQ/L (3.5-5.1); SODIUM (NA) 137 MEQ/L (136-145)
[2016-06-11 04:17] LABS: ALKALINE PHOSPHATASE 284 U/L (45-117); ALT (GPT) 430 U/L (10-53); TOTAL BILIRUBIN ADULT 0.4 MG/DL (0.2-1.0)
[2016-06-11] MEDS: INSULIN NovoLIN REGULAR SUPPLEMENTAL SCALE SQ SCH ×3 (05:24→17:44)
[2016-06-11 05:27] LABS: BLOOD GAS BASE EXCESS 2.2 mmol/L (-2-2); BLOOD GAS CARBOXYHEMOGLOBIN 1.1 % (0-4); BLOOD GAS HCO3 25 mmol/L (22-26); BLOOD GAS METHEMOGLOBIN 0.7 % (0-2); BLOOD GAS O2 HGB SATURATION 97 % (90-100); BLOOD GAS OXYGEN CONTENT 12.2 Vol % (12.0-20.0); BLOOD GAS PCO2 31 mmHg (38-42); BLOOD GAS PO2 133 mmHg (61-120); BLOOD GAS TOTAL HGB 8.7 G/DL (12.0-16.0); TEMP CORR TO 98.6
[2016-06-11 05:28] LABS: CRITICAL VALUE YES; DRAW SITE ALINE; FIO2 50 %; STAT NO
--- NOTE | 2016-06-11 05:48 | RADRPT ---
EXAM DATE/TIME: 06/11/2016 04:00 [facility] COMPARISON: CHEST SINGLE AP, June 09, 2016, 16:01. INDICATIONS : Shortness of breath. MEDICAL HISTORY : Hypertension. SURGICAL HISTORY : None. ENCOUNTER: Subsequent ACUITY: 3 weeks PAIN SCORE: Non-responsive. LOCATION: Bilateral chest FINDINGS: Single AP view of the chest. Tracheostomy tube remains in place. There is persistent bilateral hazy o pacity of the lung bases. Cardiomediastinal silhouette within normal limits. No evidence of pneumotho rax. CONCLUSION: No change of bilateral hazy lower lung zone opacity indicating pulmonary edema versus pleural effusio ns. David Powell MD on June 11, 2016 at 5:46 Board Certified Radiologist. This report was verified electronically.
[2016-06-11] MEDS: POTASSIUM CHLOR 20 MEQ PREMIX 100 ML IV PRN ×4 (05:55→14:13)
[2016-06-11] MEDS: DOCUSATE SODIUM 100 MG/10 ML UDC G-TUBE SCH ×2 (08:45→20:35)
[2016-06-11] MEDS: POLYETHYLENE GLYCOL 17 GM PKG PO SCH ×2 (08:59→20:35)
[2016-06-11] MEDS: SENNOSIDES SYRUP 8.8 MG/5 ML CUP PO/TUBE SCH ×2 (08:59→20:36)
[2016-06-11] MEDS: ARTIFICIAL TEARS OPTH SOLN 15 ML BTL EACH EYE SCH ×3 (09:00→18:00)
[2016-06-11] MEDS: LOSARTAN 25 MG TAB PO SCH (09:52)
[2016-06-11] MEDS: CARVEDILOL 6.25 MG TAB PO SCH ×2 (09:52→20:34)
[2016-06-11] MEDS: HYDROCHLOROTHIAZIDE 12.5 MG CAP PO SCH (09:52)
[2016-06-11] MEDS: SODIUM CHLORIDE 0.9% FLUSH 5 ML FLUSH IV FLUSH SCH ×2 (09:53→20:33)
[2016-06-11] MEDS: FOSPHENYTOIN SODIUM 100 MG PE/2 ML VIAL IV SCH ×2 (09:53→20:34)
[2016-06-11] MEDS: levETIRAcetam 1000 MG INJ 100 ML IV SCH ×2 (09:53→20:33)
[2016-06-11] MEDS: FAMOTIDINE 20 MG/2 ML VIAL IV PUSH SCH ×2 (09:53→20:34)
[2016-06-11] MEDS: RESP: SODIUM CHLORIDE 3% 4 ML NEB NEB SCH ×2 (10:01→17:24)
[2016-06-11] MEDS: RESP: ALBUTEROL 2.5 MG/IPRATROPIUM 0.5 MG NEB (PRN) INH ×3 (10:01→21:35)
--- NOTE | 2016-06-11 13:42 | HHI.NSPN ---
(Allison Mccullough) Note Status Status: Progress Note (Allison Mccullough) Interval History Interval History This is a 66 years old female was transferred to [facility] from [facility] for a subarachnoid hemorrhage. The patient and the was vacationing from [place]. They were on the train. Patient's states that around 2:00 this afternoon she suddenly developed severe headache and then vomited, and then had a syncopal episode. The train stopped. EMS was called. EMS personnel state that patient had altered status was able to follow commands and beginning without focal neurological deficit. No seizure activity. No tongue bitting. No tonic clonic movements. no incontinence of stool or urine. She was transported to [facility] in [place]. On the way to the hospital, she developed respiratory problem and patient was subsequently endotracheally intubated. She has history of atrial fibrillation and hypertension and was anticoagulated with Xarelto 20 mg daily. In addition she takes atorvastatin, HCTZ/ losartan, metoprolol. CT scan of the brain done at [facility] in [place] shows extensive subarachnoid and intraventricular hemorrhage with early obstructive hydrocephalus developing. She was placed given propofol and Cardene drip. Cardene drip and propofol was stopped secondary to hypotension on the way to the ED. Neurosurgical consultation was requested 05/28: intubated and sedated, s/p placement of ventriculostomy drain. CTA Brain neg for aneurysm, for cerebral angiography today, 05/29: seen this am during am round, withdrawing in the lower extremities, did not open eyes or follow commands for me, was reported to have followed with nursing. Cerebral angiography yesterday was neg for aneurysm. Then sergei Mario , patient having seizures, and posturing. ICPs has been 8-10, nursing reports EVD draining, CSF blood tinged. Transcranial doppler early this am negative for vasospasm 3/1: extends in uppers, withdraws in LEs 3/2: minimal withdrawals in the lower extremities, and extension. f/u CT Brain shows increased ventriculomegaly. CTA Head unremarkable for intracranial aneurysm. f/u EEG reports severe encephalopathy. ICPs at highest 8 overnight. 06/01: this morning slightly wiggled toes to command. ICPs below 5, EVD draining blood tinged CSF. 06/04: slightly opening eyes, EVD draining dark red CSF at 10 cm H20, ICPs at highest 8 overnight. 06/05: ICPs stable overnight, opening eyes. No reports of seizure like activities overnight. EVD continues to drain well. 06/06: cerebral angio completed yesterday, otherwise no neuro changes overnight. EVD draining, with stable ICPs. 06/07: opens eyes to pain stim, withdraws LE's, CSF dark red with stable ICPs 06/08: intubated, moderate eye opening, not tracking, not following commands. 06/11: eyes open, focuses, wiggled toes toe command. s/p intraarterial administration of verapamil for vasospasm (Allison Mccullough) Labs, Micro, & Vital Signs Results Date Time Temp Pulse Resp B/P Pulse Ox O2 Delivery O2 Flow Rate FiO2 06/11/16 12:00 40 06/11/16 11:22 100 40 06/11/16 10:00 86 06/11/16 08:01 100 40 06/11/16 08:00 98.4 88 20 176/78 100 06/11/16 08:00 81 06/11/16 08:00 40 06/11/16 06:00 86 06/11/16 04:18 100 50 06/11/16 04:00 50 06/11/16 04:00 98.4 88 21 150/63 100 06/11/16 04:00 88 06/11/16 02:00 88 06/11/16 00:47 100 50 06/11/16 00:00 90 06/11/16 00:00 50 06/11/16 00:00 99.0 91 20 155/66 96 06/10/16 22:00 90 06/10/16 20:00 50 06/10/16 20:00 100 50 06/10/16 20:00 89 06/10/16 20:00 99.3 91 20 155/67 100 06/10/16 18:00 88 06/10/16 16:35 100 50 06/10/16 16:00 98.1 81 20 135/65 100 162/69 06/10/16 16:00 81 06/10/16 16:00 50 06/11/16 06:59 Intake Total 4866 ml Output Total 2979 ml Balance 1887 ml Constitutional Vital Signs Date Time Temp Pulse Resp B/P Pulse Ox O2 Delivery O2 Flow Rate FiO2 06/11/16 12:00 40 06/11/16 11:22 100 40 06/11/16 10:00 86 06/11/16 08:01 100 40 06/11/16 08:00 98.4 88 20 176/78 100 06/11/16 08:00 81 06/11/16 08:00 40 06/11/16 06:00 86 06/11/16 04:18 100 50 06/11/16 04:00 50 06/11/16 04:00 98.4 88 21 150/63 100 06/11/16 04:00 88 06/11/16 02:00 88 06/11/16 00:47 100 50 06/11/16 00:00 90 06/11/16 00:00 50 06/11/16 00:00 99.0 91 20 155/66 96 06/10/16 22:00 90 06/10/16 20:00 50 06/10/16 20:00 100 50 06/10/16 20:00 89 06/10/16 20:00 99.3 91 20 155/67 100 06/10/16 18:00 88 06/10/16 16:35 100 50 06/10/16 16:00 98.1 81 20 135/65 100 162/69 06/10/16 16:00 81 06/10/16 16:00 50 06/11/16 06:59 Intake Total 4866 ml Output Total 2979 ml Balance 1887 ml (Allison Mccullough) Review of Systems/Exam Exam Ms. Michaels eyes open, she appears to focus. Wiggled toes to command. Right ventriculostomy drain at 15 cm H20, CSF dark red, ICPs within normal limits Cranial Nerves: Pupils 4 reactive b/l Sensorimotor: she wiggled her toes to commands, no movements to upper extremities questionable mild left Babinski response, no ankle clonus Cerebellar: cannot assess due to her condition (Allison Mccullough) Exam Ms. Michaels is intubated, ventilated. eye opening to sternal rub, no commands. Right ventriculostomy drain at 10 cm H20, draining well, dark red CSF, ICPs < 5 Cranial Nerves: Pupils 4 mm b/l reactive to 3 mm. There is response to visual threat. bilat corneals Sensorimotor: withdraws lower extremities to local stimuli Cerebellar: cannot assess due to her condition (Arcenio Mtz MD) Medications Current Medications Current Medications Medications (Trade) Dose Ordered Sig/Jerry Route PRN Reason Start Time Stop Time Status Last Admin Dose Admin Propofol (Diprivan 1000 Mg/100ml Inj) 100 ml @ 0 mls/hr TITRATE IV 05/27/16 19:45 05/28/16 23:16 IV Flush (NS Flush) 2 ml UNSCH PRN IV FLUSH FLUSH AFTER USING IV ACCESS 05/27/16 20:45 05/27/16 22:30 IV Flush (NS Flush) 2 ml BID IV FLUSH 05/27/16 21:00 06/11/16 09:53 Acetaminophen (Tylenol) 650 mg Q6H PRN PO PAIN 1-10 AND/OR FEVER >101F 05/27/16 20:45 06/07/16 17:14 Famotidine (Pepcid Inj) 20 mg Q12HR IV PUSH 05/27/16 21:00 06/11/16 09:53 Artificial Tears (Tears Naturale Opth Soln) 1 drop TID EACH EYE 05/28/16 09:00 06/11/16 12:07 Ondansetron HCl (Zofran Inj) 4 mg Q6H PRN IV NAUSEA OR VOMITING 05/27/16 20:45 Docusate Sodium (Colace Liq) 100 mg Q12H G-TUBE 05/27/16 20:45 06/10/16 08:44 Miscellaneous Information 1 Q361D XX 05/27/16 20:45 05/27/16 20:45 Chlorhexidine Gluconate (Chlorhexidine 2% Cloth) Taper DAILY@04 TOP 05/28/16 04:00 05/24/17 03:59 06/11/16 03:10 Chlorhexidine Gluconate 3 pack 3 pack UNSCH PRN TOP HYGIENIC CARE 05/27/16 20:45 Nicardipine HCl/ Sodium Chloride (Cardene Inj/NS 250 ml Inj) 260 ml @ 0 mls/hr TITRATE IV 05/27/16 21:00 06/09/16 15:00 Nimodipine (Nimotop) 60 mg Q4HR PO 05/28/16 00:00 06/11/16 12:06 Pravastatin Sodium 40 mg 40 mg HS PO 05/27/16 21:00 06/10/16 19:47 Levetriacetam 100 ml @ 400 mls/hr Q12HR IV 05/28/16 09:00 06/11/16 09:53 Potassium Chloride 100 ml @ 50 mls/hr Q2H PRN IV For Potassium 2.8 - 3.2 mEq/L 05/28/16 01:45 06/04/16 13:40 Potassium Chloride (KCl 20 Meq Premix Inj) 100 ml @ 50 mls/hr Q2H PRN IV For Potassium 2.8 - 3.2 mEq/L 05/28/16 01:45 06/11/16 12:07 Potassium Chloride 40 meq 40 meq UNSCH PRN PO/TUBE For Potassium 3.3 - 3.5 mEq/L 05/28/16 01:45 06/08/16 00:40 Potassium Chloride 100 ml @ 25 mls/hr UNSCH PRN IV For Potassium 3.3 - 3.5 mEq/L 05/28/16 01:45 05/30/16 18:33 Potassium Chloride 100 ml @ 50 mls/hr Q2H PRN IV For Potassium 3.3 - 3.5 mEq/L 05/28/16 01:45 06/02/16 08:34 Magnesium Sulfate/ Sodium Chloride (Magnesium Sulfate Inj/NS Inj) 100 ml @ 50 mls/hr UNSCH PRN IV For Magnesium 0.9 - 1.1 mg/dL 05/28/16 01:45 Magnesium Oxide 800 mg 800 mg UNSCH PRN PO For Magnesium 1.2 - 1.6 mg/dL 05/28/16 01:45 Magnesium Sulfate/ Sodium Chloride (Magnesium Sulfate Inj/NS Inj) 100 ml @ 50 mls/hr UNSCH PRN IV For Magnesium 1.2 - 1.6 mg/dL 05/28/16 01:45 06/04/16 13:40 Potassium Phosphate 2000 mg 2,000 mg Q4H PRN PO For Phosphorus < 2.5 mg/dL 05/28/16 01:45 Sodium Phosphate/ Sodium Chloride (Sodium Phosphate Inj/NS 250 ml Inj) 250 ml @ 42 mls/hr UNSCH PRN IV For Phosphorus < 2.5 mg/dL 05/28/16 01:45 06/10/16 08:45 Potassium Chloride (KCl 40 Meq/30 ml Liq) 40 meq UNSCH PRN PO/TUBE SEE LABEL COMMENTS 05/28/16 01:45 06/03/16 05:31 Potassium Phosphate 2000 mg 2,000 mg UNSCH PRN PO/TUBE SEE LABEL COMMENTS 05/28/16 01:45 Potassium Phosphate/Sodium Chloride (Potassium Phosphate Inj/NS 250 ml Inj) 260 ml @ 42 mls/hr UNSCH PRN IV SEE LABEL COMMENTS 05/28/16 01:45 06/08/16 17:09 Dextrose (D50w (Vial) Inj) 25 ml UNSCH PRN IV PUSH HYPOGLYCEMIA-SEE COMMENTS 05/29/16 07:30 Insulin Human Regular (NovoLIN R SUPPLEMENTAL SCALE) 1 Q6HR SQ 05/29/16 12:00 06/11/16 12:06 Fosphenytoin Sodium (Cerebyx Inj) 100 mgpe Q12HR IV 06/02/16 09:00 06/11/16 09:53 Sennosides (Senna Liq) 8.8 mg BID PO/TUBE 06/07/16 09:00 06/10/16 08:45 Glycerin (Glycerin Adult Supp) 2 gm BID PRN RECTAL CONSTIPATION 06/07/16 09:00 Polyethylene Glycol (Miralax) 17 gm BID PO 06/08/16 21:00 06/10/16 08:45 Losartan Potassium (Cozaar) 25 mg DAILY PO 06/09/16 15:00 06/11/16 09:52 Hydrochlorothiazide (Microzide) 12.5 mg DAILY PO 06/10/16 09:00 06/11/16 09:52 Carvedilol 6.25 mg 6.25 mg Q12HR PO 06/09/16 21:00 06/11/16 09:52 Sodium Chloride (NS 1000 ml Inj) 1,000 ml @ 185 mls/hr Q5H25M IV 06/10/16 20:00 06/11/16 12:07 (Allison Mccullough) Current Medications Current Medications Nicardipine HCl 25 mg/Sodium Chloride 260 ml @ 0 mls/hr TITRATE IV ; Start 05/27 at 19:45; Stop 05/27/16 at 20:58; Status DC Propofol 100 ml @ 0 mls/hr TITRATE IV Last administered on 05/28/16 23:16; Start 05/27/16 at 19:45 Sodium Chloride 1,000 ml @ 70 mls/hr [id number] IV Last administered on 20:07; Start 05/27/16 at 20:00; Stop 05/27/16 at 20:57; Status DC Prothrombin Complex Concent (Human) 4000 units/Syringe / Bag 0 ml @ 8 mls/min ONCE ONCE IV Last administered on 05/27/16 21:03; Start 05/27/16 at 20:45; Stop 05/27/16 at 20:46; Status DC Sodium Chloride (NS 1000 ml Inj) 1,000 ml @ 75 mls/hr [id number] IV Last administered on 06/09/16 06:33; Start 05/27/16 at 21:00; Stop 06/09/16 at 13:15 ; Status DC IV Flush (NS Flush) 2 ml UNSCH PRN IV FLUSH FLUSH AFTER USING IV ACCESS Last administered on 05/27/16 22:30; Start 05/27/16 at 20:45 IV Flush (NS Flush) 2 ml BID IV FLUSH Last administered on 06/11/16 09:53; Start 05/27/16 at 21:00 Acetaminophen (Tylenol) 650 mg Q6H PRN PO PAIN 1-10 AND/OR FEVER >101F Last administered on 06/07/16 17:14; Start 05/27/16 at 20:45 Morphine Sulfate (Morphine Inj) 2 mg Q2H PRN IV PAIN SCALE 6 TO 10; Start 05/27 at 20:45; Stop 05/29/16 at 13:33; Status DC Famotidine (Pepcid Inj) 20 mg Q12HR IV PUSH Last administered on 06/11/16 09: 53; Start 05/27/16 at 21:00 Artificial Tears (Tears Naturale Opth Soln) 1 drop TID EACH EYE Last administered on 06/11/16 12:07; Start 05/28/16 at 09:00 Ondansetron HCl (Zofran Inj) 4 mg Q6H PRN IV NAUSEA OR VOMITING; Start at 20:45 Metoclopramide HCl (Reglan Inj) 10 mg Q6H PRN IV NAUSEA OR VOMITING; Start at 20:45; Stop 05/29/16 at 13:33; Status DC Docusate Sodium (Colace Liq) 100 mg Q12H G-TUBE Last administered on 06/10/16 08:44; Start 05/27/16 at 20:45 Albuterol/ Ipratropium (Duoneb Neb) 1 ampule Q2HR NEB PRN INH WHEEZING Last administered on 06/11/16 10:01; Start 05/27/16 at 20:45 Miscellaneous Information 1 Q361D XX Last administered on 05/27/16 20:45; Start 05/27/16 at 20:45 Chlorhexidine Gluconate (Chlorhexidine 2% Cloth) Taper DAILY@04 TOP Last administered on 06/11/16 03:10; Start 05/28/16 at 04:00; Stop 05/24/17 at 03:59 Chlorhexidine Gluconate 3 pack 3 pack UNSCH PRN TOP HYGIENIC CARE; Start at 20:45 Nicardipine HCl/ Sodium Chloride (Cardene Inj/NS 250 ml Inj) 260 ml @ 0 mls/hr TITRATE IV Last administered on 06/09/16 15:00; Start 05/27/16 at 21:00 Nimodipine (Nimotop) 60 mg Q4HR PO Last administered on 06/11/16 15:38; Start 05/28/16 at 00:00 Pravastatin Sodium (Pravachol) 40 mg HS PO Last administered on 06/10/16 19:47 ; Start 05/27/16 at 21:00 Hydralazine HCl 20 mg 20 mg STK-MED ONCE .ROUTE ; Start 05/27/16 at 20:54; Stop 05/27/16 at 20:55; Status DC Mannitol 50 ml @ As Directed STK-MED ONCE .ROUTE ; Start 05/27/16 at 21:07; Stop 05/27/16 at 21:08; Status DC Mannitol 50 ml @ As Directed STK-MED ONCE .ROUTE ; Start 05/27/16 at 21:12; Stop 05/27/16 at 21:13; Status DC Sodium Chloride 500 ml @ 20 mls/hr UNSCH IV Last administered on 05/29/16 23: 27; Start 05/27/16 at 21:30; Stop 06/01/16 at 11:28; Status DC Levetriacetam 100 ml @ 400 mls/hr BOLUS ONCE IV Last administered on 22:09; Start 05/27/16 at 21:30; Stop 05/27/16 at 21:44; Status DC Levetriacetam (Keppra 1000 Mg Inj) 100 ml @ 400 mls/hr Q12HR IV Last administered on 06/11/16 09:53; Start 05/28/16 at 09:00 Epinephrine HCl (EPINEPHrine (1:10,000) INJ) 1 mg STK-MED ONCE .ROUTE ; Start at 22:22; Stop 05/27/16 at 22:23; Status DC Lidocaine HCl (Xylocaine 2% Inj) 100 mg STK-MED ONCE .ROUTE ; Start 05/27/16 at 22:22; Stop 05/27/16 at 22:23; Status DC Atropine Sulfate 1 mg 1 mg STK-MED ONCE .ROUTE ; Start 05/27/16 at 22:22; Stop 05/27/16 at 22:23; Status DC Norepinephrine Bitartrate 250 ml @ As Directed STK-MED ONCE IV ; Start at 22:34; Stop 05/27/16 at 22:35; Status DC Norepinephrine Bitartrate (Levophed-Dextrose Drip) 250 ml @ 0 mls/hr TITRATE IV ; Start 05/27/16 at 22:45; Stop 05/28/16 at 02:04; Status DC Terbutaline Sulfate (Brethine Inj) 1 mg UNSCH PRN SQ For Extravasation; Start 05/27/16 at 22:45; Stop 06/01/16 at 11:28; Status DC Norepinephrine Bitartrate (Levophed Inj) 4 mg STK-MED ONCE .ROUTE ; Start at 22:46; Stop 05/27/16 at 22:47; Status DC Iohexol (Omnipaque 350 Inj) 100 ml STK-MED ONCE IV Last administered on 23:12; Start 05/27/16 at 23:12; Stop 05/27/16 at 23:13; Status DC Hydralazine HCl 20 mg 20 mg STAT ONCE IVS Last administered on 05/27/16 21:10 ; Start 05/28/16 at 01:00; Stop 05/28/16 at 01:03; Status DC Potassium Chloride 100 ml @ 50 mls/hr Q2H PRN IV For Potassium 2.8 - 3.2 mEq/ L Last administered on 06/04/16 13:40; Start 05/28/16 at 01:45 Potassium Chloride (KCl 20 Meq Premix Inj) 100 ml @ 50 mls/hr Q2H PRN IV For Potassium 2.8 - 3.2 mEq/L Last administered on 06/11/16 14:13; Start 05/28/16 at 01:45 Potassium Chloride 40 meq 40 meq UNSCH PRN PO/TUBE For Potassium 3.3 - 3.5 mEq/ L Last administered on 06/08/16 00:40; Start 05/28/16 at 01:45 Potassium Chloride 100 ml @ 25 mls/hr UNSCH PRN IV For Potassium 3.3 - 3.5 mEq /L Last administered on 05/30/16 18:33; Start 05/28/16 at 01:45 Potassium Chloride 100 ml @ 50 mls/hr Q2H PRN IV For Potassium 3.3 - 3.5 mEq/ L Last administered on 06/02/16 08:34; Start 05/28/16 at 01:45 Magnesium Sulfate/ Sodium Chloride (Magnesium Sulfate Inj/NS Inj) 100 ml @ 50 mls/hr UNSCH PRN IV For Magnesium 0.9 - 1.1 mg/dL; Start 05/28/16 at 01:45 Magnesium Oxide 800 mg 800 mg UNSCH PRN PO For Magnesium 1.2 - 1.6 mg/dL; Start 05/28/16 at 01:45 Magnesium Sulfate/ Sodium Chloride (Magnesium Sulfate Inj/NS Inj) 100 ml @ 50 mls/hr UNSCH PRN IV For Magnesium 1.2 - 1.6 mg/dL Last administered on 13:40; Start 05/28/16 at 01:45 Potassium Phosphate 2000 mg 2,000 mg Q4H PRN PO For Phosphorus < 2.5 mg/dL; Start 05/28/16 at 01:45 Sodium Phosphate/ Sodium Chloride (Sodium Phosphate Inj/NS 250 ml Inj) 250 ml @ 42 mls/hr UNSCH PRN IV For Phosphorus < 2.5 mg/dL Last administered on 08:45; Start 05/28/16 at 01:45 Potassium Chloride (KCl 40 Meq/30 ml Liq) 40 meq UNSCH PRN PO/TUBE SEE LABEL COMMENTS Last administered on 06/03/16 05:31; Start 05/28/16 at 01:45 Potassium Phosphate 2000 mg 2,000 mg UNSCH PRN PO/TUBE SEE LABEL COMMENTS; Start 05/28/16 at 01:45 Potassium Phosphate/Sodium Chloride (Potassium Phosphate Inj/NS 250 ml Inj) 260 ml @ 42 mls/hr UNSCH PRN IV SEE LABEL COMMENTS Last administered on 06/08/16 17:09; Start 05/28/16 at 01:45 Mannitol 80 gm 80 gm STAT ONCE IV Last administered on 05/27/16 21:10; Start 05/28/16 at 02:15; Stop 05/28/16 at 02:16; Status DC Norepinephrine Bitartrate (Levophed-Dextrose Drip) 250 ml @ 0 mls/hr TITRATE IV Last administered on 05/29/16 19:02; Start 05/28/16 at 02:15; Stop 05/29/16 at 19:45; Status DC Nicardipine HCl 25 mg 25 mg STK-MED ONCE .ROUTE ; Start 05/28/16 at 06:52; Stop 05/28/16 at 06:53; Status DC Sodium Chloride (NS 250 ml Inj) 250 ml @ As Directed STK-MED ONCE .ROUTE ; Start 05/28/16 at 06:52; Stop 05/28/16 at 06:53; Status DC Nicardipine HCl (Cardene Inj) 25 mg STK-MED ONCE .ROUTE ; Start 05/28/16 at 06: 55; Stop 05/28/16 at 06:56; Status DC Epinephrine HCl (EPINEPHrine (1:10,000) INJ) 1 mg STK-MED ONCE .ROUTE ; Start at 22:20; Stop 05/28/16 at 22:21; Status DC Lidocaine HCl (Xylocaine 2% Inj) 100 mg STK-MED ONCE .ROUTE ; Start 05/28/16 at 22:20; Stop 05/28/16 at 22:21; Status DC Atropine Sulfate (Atropine Inj) 1 mg STK-MED ONCE .ROUTE ; Start 05/28/16 at 22: 20; Stop 05/28/16 at 22:21; Status DC Verapamil HCl (Isoptin Inj) 10 mg STK-MED ONCE .ROUTE ; Start 05/28/16 at 23:45 ; Stop 05/28/16 at 23:46; Status DC Dextrose (D50w (Vial) Inj) 25 ml UNSCH PRN IV PUSH HYPOGLYCEMIA-SEE COMMENTS; Start 05/29/16 at 07:30 Insulin Human Regular (NovoLIN R SUPPLEMENTAL SCALE) 1 Q6HR SQ Last administered on 06/11/16 12:06; Start 05/29/16 at 12:00 Iodixanol 121 ml 121 ml STK-MED ONCE I-ARTERIAL Last administered on 05/29/16 01:00; Start 05/29/16 at 01:00; Stop 05/29/16 at 11:40; Status DC Fosphenytoin Sodium/Sodium Chloride (Cerebyx Inj/NS Inj) 70 ml @ 280 mls/hr ONCE ONCE IV Last administered on 05/29/16 14:09; Start 05/29/16 at 15:00; Stop 05/29/16 at 15:14; Status DC Fosphenytoin Sodium (Cerebyx Inj) 200 mgpe Q12HR IV Last administered on 20:41; Start 05/29/16 at 21:00; Stop 06/02/16 at 08:21; Status DC Norepinephrine Bitartrate 4 mg 4 mg STK-MED ONCE .ROUTE ; Start 05/29/16 at 18: 34; Stop 05/29/16 at 18:35; Status DC Sodium Chloride 500 ml @ 500 mls/hr Q1H ONCE IV Last administered on 17:20; Start 05/29/16 at 18:45; Stop 05/29/16 at 19:44; Status DC Norepinephrine Bitartrate 4 mg/ Sodium Chloride 250 ml @ 0 mls/hr TITRATE IV Last administered on 05/30/16 07:11; Start 05/29/16 at 19:45; Stop 05/30/16 at 09 :40; Status DC Vasopressin 40 units/Dextrose 100 ml @ 6 mls/hr [id number] IV ; Start 05/29/16 at 21:00; Stop 05/29/16 at 21:00; Status DC Vasopressin/ Sodium Chloride (Pitressin Inj/ NS Inj) 102 ml @ 6.12 mls/hr [id number] IV Last administered on 05/31/16 05:43; Start 05/29/16 at 21:00; Stop 06/01/16 at 11:28; Status DC Hydrocortisone Sodium Succinate 50 mg 50 mg Q6H IV PUSH Last administered on 08:33; Start 05/30/16 at 09:00; Stop 06/01/16 at 11:29; Status DC Phenylephrine HCl 160 mg/Dextrose 500 ml @ 0 mls/hr TITRATE IV ; Start 05/30/16 at 09:45; Stop 05/30/16 at 09:51; Status DC Norepinephrine Bitartrate 16 mg/ Sodium Chloride 262 ml @ 0 mls/hr TITRATE IV ; Start 05/30/16 at 09:45; Stop 06/08/16 at 10:35; Status DC Phenylephrine HCl/ Sodium Chloride (Neosynephrine Inj/NS 500 ml Inj) 500 ml @ 0 mls/hr TITRATE IV Last administered on 05/30/16 17:50; Start 05/30/16 at 10:00; Stop 06/01/16 at 11:29; Status DC Epinephrine HCl (EPINEPHrine (1:10,000) INJ) 1 mg STK-MED ONCE .ROUTE ; Start at 10:08; Stop 05/31/16 at 10:09; Status DC Lidocaine HCl (Xylocaine 2% Inj) 100 mg STK-MED ONCE .ROUTE ; Start 05/31/16 at 10:08; Stop 05/31/16 at 10:09; Status DC Atropine Sulfate (Atropine Inj) 1 mg STK-MED ONCE .ROUTE ; Start 05/31/16 at 10: 08; Stop 05/31/16 at 10:09; Status DC Iohexol (Omnipaque 350 Inj) 91 ml STK-MED ONCE IV Last administered on 10:56; Start 05/31/16 at 10:56; Stop 05/31/16 at 10:57; Status DC Water (Free Water) 200 ml Q6HR OG Last administered on 3/3/17at 11:09; Start at 12:00; Stop 06/01/16 at 16:45; Status DC Epinephrine HCl (EPINEPHrine (1:10,000) INJ) 1 mg STK-MED ONCE .ROUTE ; Start at 11:27; Stop 06/01/16 at 11:28; Status DC Lidocaine HCl (Xylocaine 2% Inj) 100 mg STK-MED ONCE .ROUTE ; Start 06/01/16 at 11:28; Stop 06/01/16 at 11:29; Status DC Atropine Sulfate (Atropine Inj) 1 mg STK-MED ONCE .ROUTE ; Start 06/01/16 at 11: 28; Stop 06/01/16 at 11:29; Status DC Gadodiamide (Omniscan Pf Inj) 16 ml STK-MED ONCE IV Last administered on 12:50; Start 06/01/16 at 12:50; Stop 06/01/16 at 12:51; Status DC Water 300 ml 300 ml Q4HR OG Last administered on 06/03/16 03:10; Start 06/01/16 at 20:00; Stop 06/03/16 at 16:34; Status DC Sodium Chloride (NS 1000 ml Inj) 1,000 ml @ 999 mls/hr BOLUS ONCE IV Last administered on 06/01/16 16:49; Start 06/01/16 at 16:45; Stop 06/01/16 at 17:45; Status DC Fosphenytoin Sodium (Cerebyx Inj) 100 mgpe Q12HR IV Last administered on 09:53; Start 06/02/16 at 09:00 Albuterol/ Ipratropium (Duoneb Neb) 1 ampule Q6HR NEB NEB Last administered on 06/11/16 03:51; Start 06/03/16 at 16:00; Stop 06/11/16 at 08:53; Status DC Lidocaine HCl (Xylocaine 2% Inj) 100 mg STK-MED ONCE .ROUTE ; Start 06/04/16 at 10:51; Stop 06/04/16 at 10:52; Status DC Atropine Sulfate 1 mg 1 mg STK-MED ONCE .ROUTE ; Start 06/04/16 at 10:51; Stop at 10:52; Status DC Magnesium Sulfate/ Dextrose (Magnesium Sulfate 1 Gm Premix) 100 ml @ As Directed STK-MED ONCE .ROUTE ; Start 06/04/16 at 13:18; Stop 06/04/16 at 13:19; Status DC Epinephrine HCl (EPINEPHrine (1:10,000) INJ) 1 mg STK-MED ONCE .ROUTE ; Start at 10:22; Stop 06/05/16 at 10:23; Status DC Lidocaine HCl (Xylocaine 2% Inj) 100 mg STK-MED ONCE .ROUTE ; Start 06/05/16 at 10:22; Stop 06/05/16 at 10:23; Status DC Atropine Sulfate (Atropine Inj) 1 mg STK-MED ONCE .ROUTE ; Start 06/05/16 at 10: 22; Stop 06/05/16 at 10:23; Status DC Midazolam HCl (Versed Inj) 5 mg STK-MED ONCE .ROUTE ; Start 06/05/16 at 11:29; Stop 06/05/16 at 11:30; Status DC Fentanyl Citrate (fentaNYL INJ) 250 mcg STK-MED ONCE .ROUTE ; Start 06/05/16 at 11:29; Stop 06/05/16 at 11:30; Status DC Iodixanol (Visipaque 320 Inj) 172 ml STK-MED ONCE I-ARTERIAL Last administered on 06/05/16 12:15; Start 06/05/16 at 12:51; Stop 06/05/16 at 12:52; Status DC Sennosides (Senna Liq) 8.8 mg BID PO/TUBE Last administered on 06/10/16 08:45 ; Start 06/07/16 at 09:00 Polyethylene Glycol (Miralax) 17 gm DAILY PO Last administered on 06/07/16 09: 10; Start 06/07/16 at 09:00; Stop 06/08/16 at 10:35; Status DC Glycerin (Glycerin Adult Supp) 2 gm BID PRN RECTAL CONSTIPATION; Start 06/07/16 at 09:00 Lactulose (Lactulose Liq) 30 ml ONCE ONCE PO Last administered on 06/07/16 09: 10; Start 06/07/16 at 09:00; Stop 06/07/16 at 09:01; Status DC Potassium Chloride 40 meq 40 meq ONCE ONCE PO Last administered on 06/07/16 09 :11; Start 06/07/16 at 09:00; Stop 06/07/16 at 09:02; Status DC Magnesium Sulfate/ Dextrose 100 ml @ 100 mls/hr Q1H IV Last administered on 12:28; Start 06/07/16 at 10:00; Stop 06/07/16 at 11:59; Status DC Cefazolin Sodium/ Dextrose (Ancef 2 Gm Premix) 50 ml @ 100 mls/hr EN[employer]INEER ONCE IV Last administered on 06/07/16 14:48; Start 06/07/16 at 12:45; Stop at 13:14; Status DC Cefazolin Sodium (Ancef Inj) 1,000 mg STK-MED ONCE IV Last administered on 15:14; Start 06/07/16 at 15:14; Stop 06/07/16 at 15:48; Status DC Propofol (Diprivan 200 Mg/20 ml Inj) 50 mg STK-MED ONCE IV Last administered on 06/07/16 15:15; Start 06/07/16 at 15:15; Stop 06/07/16 at 15:52; Status DC Polyethylene Glycol (Miralax) 17 gm BID PO Last administered on 06/10/16 08:45 ; Start 06/08/16 at 21:00 Iohexol (Omnipaque 350 Inj) 65 ml STK-MED ONCE IV Last administered on 12:01; Start 06/08/16 at 12:01; Stop 06/08/16 at 12:02; Status DC Bumetanide (Bumex Inj) 1 mg ONCE ONCE IV PUSH Last administered on 06/08/16 13:49; Start 06/08/16 at 13:45; Stop 06/08/16 at 13:46; Status DC Fentanyl Citrate (fentaNYL INJ) 50 mcg ONCE ONCE IV PUSH Last administered on 06/08/16 15:20; Start 06/08/16 at 16:00; Stop 06/08/16 at 16:01; Status DC Midazolam HCl (Versed Inj) 5 mg ONCE ONCE IV PUSH Last administered on 15:20; Start 06/08/16 at 16:00; Stop 06/08/16 at 16:01; Status DC Rocuronium [place] (Zemuron Inj) 50 mg BOLUS ONCE IV Last administered on 06/08 16:00; Start 06/08/16 at 16:00; Stop 06/08/16 at 16:01; Status DC Norepinephrine Bitartrate (Levophed Inj) 4 mg STK-MED ONCE .ROUTE Last administered on 06/08/16 15:27; Start 06/08/16 at 15:27; Stop 06/08/16 at 15:28 ; Status DC Sodium Chloride (Sodium Chloride 3% Neb) 2 ml Q6HR NEB NEB Last administered on 06/11/16 10:01; Start 06/08/16 at 17:00; Stop 06/11/16 at 16:59 Nicardipine HCl 25 mg 25 mg STK-MED ONCE .ROUTE ; Start 06/08/16 at 20:46; Stop 06/08/16 at 20:47; Status DC Sodium Chloride (NS 250 ml Inj) 250 ml @ As Directed STK-MED ONCE .ROUTE ; Start 06/08/16 at 20:46; Stop 06/08/16 at 20:47; Status DC Fentanyl Citrate (fentaNYL INJ) 50 mcg ONCE ONCE IV PUSH Last administered on 06/09/16 15:15; Start 06/09/16 at 12:45; Stop 06/09/16 at 12:46; Status DC Midazolam HCl (Versed Inj) 5 mg ONCE ONCE IV PUSH Last administered on 15:15; Start 06/09/16 at 12:45; Stop 06/09/16 at 12:46; Status DC Rocuronium [place] (Zemuron Inj) 50 mg BOLUS ONCE IV Last administered on 06/09 15:15; Start 06/09/16 at 12:45; Stop 06/09/16 at 12:46; Status DC Losartan Potassium (Cozaar) 25 mg DAILY PO Last administered on 06/11/16 09:52 ; Start 06/09/16 at 15:00 Hydrochlorothiazide (Microzide) 12.5 mg DAILY PO Last administered on 09:52; Start 06/10/16 at 09:00 Carvedilol (Coreg) 6.25 mg Q12HR PO Last administered on 06/11/16 09:52; Start 06/09/16 at 21:00 Phenylephrine HCl (Neosynephrine Inj) 10 mg STK-MED ONCE .ROUTE ; Start at 09:59; Stop 06/10/16 at 10:00; Status DC Phenylephrine HCl (Neosynephrine Inj) 30 mg STK-MED ONCE .ROUTE ; Start at 10:00; Stop 06/10/16 at 10:01; Status DC Iohexol (Omnipaque 350 Inj) 83 ml STK-MED ONCE IV Last administered on 11:03; Start 06/10/16 at 11:03; Stop 06/10/16 at 11:04; Status DC Verapamil HCl (Isoptin Inj) 10 mg STK-MED ONCE .ROUTE Last administered on 06/10 12:53; Start 06/10/16 at 12:53; Stop 06/10/16 at 12:54; Status DC Verapamil HCl (Isoptin Inj) 10 mg STK-MED ONCE .ROUTE Last administered on 06/10 13:29; Start 06/10/16 at 13:29; Stop 06/10/16 at 13:30; Status DC Verapamil HCl (Isoptin Inj) 5 mg STK-MED ONCE .ROUTE Last administered on 13:53; Start 06/10/16 at 13:53; Stop 06/10/16 at 13:54; Status DC Verapamil HCl (Isoptin Inj) 10 mg STK-MED ONCE .ROUTE Last administered on 06/10 13:54; Start 06/10/16 at 13:54; Stop 06/10/16 at 13:55; Status DC Verapamil HCl (Isoptin Inj) 5 mg STK-MED ONCE .ROUTE Last administered on 13:59; Start 06/10/16 at 13:59; Stop 06/10/16 at 14:00; Status DC Iodixanol 100 ml 100 ml STK-MED ONCE I-ARTERIAL Last administered on 06/10/16 14:23; Start 06/10/16 at 14:19; Stop 06/10/16 at 14:20; Status DC Sodium Chloride 1,000 ml @ 150 mls/hr Q6H40M IV Last administered on 15:38; Start 06/10/16 at 20:00 Sodium Chloride/ Sodium Chloride (Sodium Chloride 23.4% Inj/NS 1000 ml Inj) 1, 047 ml @ 30 mls/hr Q24H IV ; Start 06/11/16 at 17:00 (Arcenio Mtz MD) Medical Decision Making MDM Remarks 66 y/o female with subarachnoid hemorrhage suspected intracranial aneurysm, placement of ventriculostomy drain, ICPs remains within normal range CTA Head x 2 negative for aneurysm, Cerebral angiography neg for aneurysm, repeat cerebral angio 06/05/16 again neg for intracranial aneurysm TCD and CTA Head 06/10 with vasospasm, s/p intra-arterial administration of verapamil (Allison Mccullough) MDM Remarks Last Impressions Transcranial Doppler Study Complete 06/10/16 0215 Signed Impressions: Service Date/Time: Friday, June 10, 2016 07:12 - CONCLUSION: Suspected spasm on the right side. Attempts will be made to contact the treating physician with this result. Lauro Mcbride MD Chest X-Ray 06/09/16 0600 Signed Impressions: Service Date/Time: Thursday, June 09, 2016 04:24 - CONCLUSION: Increasing consolidation left lower lung. Werner Melgar MD Liver Ultrasound 06/08/16 0000 Signed Impressions: Service Date/Time: Wednesday, June 08, 2016 14:00 - CONCLUSION: Ultrasound appearance of the liver and surrounding structures within normal limits. Lauro Logan MD CT Angiography 06/08/16 0000 Signed Impressions: Service Date/Time: Wednesday, June 08, 2016 11:54 - CONCLUSION: 1. Bilateral pleural effusions with compressive atelectasis. 2. No pulmonary embolus. Lauro Logan MD Abdomen/Pelvis CT 06/08/16 0000 Signed Impressions: Service Date/Time: Wednesday, June 08, 2016 11:54 - CONCLUSION: 1. There is mild distention of the colon but there are no findings to indicate bowel obstruction. A small volume of free fluid is present within the abdomen and pelvis. 2. Anasarca along with a presacral edema. 3. Small to moderate-sized bilateral pleural effusions with associated compressive atelectasis. Lauro Lamb MD Cerebral Arteriogram 06/05/16 0000 Signed Impressions: Service Date/Time: Sunday, June 05, 2016 00:00 - CONCLUSION: 1. No evidence of aneurysm 2. 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 I do not see a mass. Etiology for the hemorrhage is not apparent. Dillon Zaragoza MD FACR Brain MRI 06/01/16 0000 Signed Impressions: Service Date/Time: Wednesday, June 01, 2016 12:14 - CONCLUSION: 1. Intraventricular blood, negative for mass. Dillon Zaragoza MD FACR Head CTA 05/31/16 0000 Signed Impressions: Service Date/Time: May 10:44 - CONCLUSION: 1. No evidence of vasospasm Brandon Herrera MD Head CT 05/31/16 0000 Signed Impressions: Service Date/Time: May 10:44 - CONCLUSION: Extensive subarachnoid hemorrhage including significant hemorrhage in the foramen magnum similar to the 05/29/16 exam. The ventricles do appear to be larger today with significant intraventricular hemorrhage present. Ventriculostomy catheter in good position. David Spencer MD (Arcenio Mtz MD) Plan Plan Remarks cont EVD, raise to 12 cm H20 today neuro exam slowly improving cont serial neuro checks cont critical care mgt, ok to start lovenox for dvt prophylaxis. Dr. Mtz dw , updated, questions answered (Allison Mccullough) Plan Remarks Continue neuro checks. Improved after angiography and angioplasty. Wean CSF drainage via ventriculostomy Respiratory. Continue mechanical ventilation in assist contyrol mode of mechanical ventilation, pulmonary toilette, nasotracheal suction, and breathing treatments with nebulizers. Hypertension As needed Cardene to maintain systolic blood pressure less than 150. PT and OT eval Nutrition. tube feedings Renal. Continue to monitor closely urine output, BUN and creatinine Endocrine. Continue to Monitor serial Acu checks and SSI for tight control ID continue to monitor for signs of infection Continue Protonix for stress ulcer prophylaxis Continue Julio hose and SCD's for DVT prophylaxis (Arcenio Mtz MD) Attending Statement The exam, history, and the medical decision-making described in the above note were completed with the assistance of the mid-level provider. I reviewed and agree with the findings presented. I attest that I had a [id number] encounter with the patient on the same day, and personally performed and documented my assessment and findings in the medical record. (Arcenio Mtz MD) Allison Mccullough Jun 11, 2016 13:42 Arcenio Mtz MD Jun 11, 2016 16:47
--- NOTE | 2016-06-11 16:33 | HHI.CCPN ---
Subjective Remarks/Hospital Course Hospital Course: 66 years old female was transferred to [facility] from [facility] in [place]. Patient and her was vacationing from [place]. They aware on the train while at around 2:00 patient started having severe headache and then vomited and then had a syncopal episode. Patient was transported to [facility] in [place]. On the way to the hospital, patient started having respiratory problem and patient was subsequently intubated. Patient has history of atrial fibrillation and hypertension and on Xarelto 20 mg daily, atorvastatin, HCTZ/ losartan, metoprolol. CT scan of the brain done at [facility] in [place] shows diffuse subarachnoid hemorrhage with intraventricular extension and early obstructive hydrocephalus developing. Dr. Mtz, neurosurgeon at [facility] was contacted and accepted transfer. 05/28: slight improvements, withdrawing to deep nailbed pressure. on cardene for hypertension. plan for angio today or tomorrow. 05/29: worsening neuro exam overnight. repeat head CT with effacement, slight compression of the brainstem. angiogram overnight without evidence of aneurysm or vasospasm. more hypotensive this morning on norepinephrine. flaccid x 4, no cough or gag. propofol turned off at 0600. 05/30: EEG with evidence of seizures. Keppra increased yesterday and Cerebryx loaded. this morning, on increasing vasopressor requirements. added phenylephrine on top of maximal levophed, vasopressin. echo with prelim hyperdynamic biventricular function. ICP stable. poor neurologic function. posturing in UEs. 05/31: vasopressors weaned overnight significantly, but remains on some support. repeat EEG improved with no evidence of ongoing ictal activity. ICP stable. this morning, no longer following commands in LEs, no longer posturing in upper extremities. discussed care with Dr. Mtz, will plan to go to CT/CTA brain to r /o vasospasm.06/01: CTA yesterday without evidence of vasospasm. TCDs negative today for vasospasm. still will intermittently follow commands in LEs, nothing in upper extremities. Na still very high, 160s. ICP well controlled. off vasopressors. 06/02: Na coming down slowly. TCDs pending for today. neuro exam stable. phenytoin level borderline high. 06/03: Tmax 100.4. Currently 99.1. Tolerating tube feeds at goal. Positive BM. Neuro exam remains stable. 3/6: Remains sedated, orally intubated on mechanical ventilation. Ventriculostomy in place. Cardene drip at 1 mg/h 06/05: Remains sedated, orally intubated on mechanical ventilation. Ventriculostomy in place. 8: AM laboratories currently pending. Afebrile. Noted cerebral angiogram without signs of vasospasm. 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 Dr. Mtz recommends per contains tracheostomy per RN. Tolerating tube feeding. 06/07: Tmax 99.5. Currently afebrile. Plan for cutaneous tracheostomy today. Ordered for PEG tube for a.m. Neurological unchanged with extension lower extremities flaccid upper extremities. 06/08: Tmax 100.8. This morning with acute episode acutely desaturated. Chest X-ray shows bilateral lower lobe infiltrates/pleural effusions. +600 cc past 24 hours. No bowel movement since 06/05. Status post PEG tube yesterday without complication. Subjective: 06/09: Afebrile. Desaturate yesterday requiring bronchoscopy. Thick white secretions noted throughout right in left lobes. Actually hard yellow secretions that coated the scope required multiple washings at end of ET tube probably causing desaturation. Currently down to 55%. Plan for tracheostomy today at 3 PM. 06/10 moderate vasospasm on TCD's on the right [place] ratio 3.7, severe vasospasm on CTA 06/11: Eyes open spontaneously tracking intermittently following commands by wiggling toes. s/p intraarterial administration of verapamil for vasospasm 06/10 Objective Vital Signs Date Time Temp Pulse Resp B/P Pulse Ox O2 Delivery O2 Flow Rate FiO2 06/11/16 14:00 85 06/11/16 12:00 40 06/11/16 12:00 98.2 20 152/71 97 Intake and Output 06/10/16 06/10/16 06/11/16 08:00 16:00 00:00 Intake Total 746 ml 1049 ml 1947 ml Output Total 441 ml 680 ml 1420 ml Balance 305 ml 369 ml 527 ml Result Diagram: 06/11/16 0340 06/11/16 0340 Other Results Microbiology Date/Time Procedure Status Source Growth 06/08/16 16:50 Gram Stain - Final Complete Bronchial Washings Right Lower Lobe 06/08/16 16:50 Bronchial Culture - Final Complete Staphylococcus Aureus Laboratory Tests Test 06/11/16 05:22 Blood Gas Puncture Site JAMAL Blood Gas Patient Temperature 98.6 Blood Gas HCO3 25 mmol/L (22-26) Blood Gas Base Excess 2.2 mmol/L (-2-2) Blood Gas Oxygen Saturation 97 % (90-100) Arterial Blood pH 7.52 (7.380-7.420) Arterial Blood Partial 31 mmHg (38-42) Pressure CO2 Arterial Blood Partial 133 mmHg Pressure O2 (61-120) Arterial Blood Oxygen Content 12.2 Vol % (12.0-20.0) Arterial Blood 1.1 % (0-4) Carboxyhemoglobin Arterial Blood Methemoglobin 0.7 % (0-2) Blood Gas Hemoglobin 8.7 G/DL (12.0-16.0) Blood Gas Ventilator Setting Blood Gas Inspired Oxygen 50 % Imaging Last Impressions Transcranial Doppler Study Complete 06/08/16 0215 Signed Impressions: Service Date/Time: Wednesday, June 08, 2016 07:52 - CONCLUSION: There are no findings to indicate vasospasm. Lauro Lamb MD Liver Ultrasound 06/08/16 Signed Impressions: Service Date/Time: Wednesday, June 08, 2016 14:00 - CONCLUSION: Ultrasound appearance of the liver and surrounding structures within normal limits. Lauro Logan MD Chest X-Ray 06/08/16 Signed Impressions: Service Date/Time: Wednesday, June 08, 2016 16:02 - CONCLUSION: 1. No pneumothorax or other acute complication seen after bronchoscopy. 2. Mild consolidation and small effusions of both bases, stable on the left and slightly improved on the right. Lauro Logan MD CT Angiography 06/08/16 Signed Impressions: Service Date/Time: Wednesday, June 08, 2016 11:54 - CONCLUSION: 1. Bilateral pleural effusions with compressive atelectasis. 2. No pulmonary embolus. Lauro Logan MD Abdomen/Pelvis CT 06/08/16 Signed Impressions: Service Date/Time: Wednesday, June 08, 2016 11:54 - CONCLUSION: 1. There is mild distention of the colon but there are no findings to indicate bowel obstruction. A small volume of free fluid is present within the abdomen and pelvis. 2. Anasarca along with a presacral edema. 3. Small to moderate-sized bilateral pleural effusions with associated compressive atelectasis. Lauro Lamb MD Cerebral Arteriogram 06/05/16 0000 Signed Impressions: Service Date/Time: Sunday, June 05, 2016 00:00 - CONCLUSION: 1. No evidence of aneurysm 2. 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 I do not see a mass. Etiology for the hemorrhage is not apparent. Dillon Zaragoza MD FACR Brain MRI 06/01/16 0000 Signed Impressions: Service Date/Time: Wednesday, June 01, 2016 12:14 - CONCLUSION: 1. Intraventricular blood, negative for mass. Dillon Zaragoza MD FACR Head CTA 05/31/16 0000 Signed Impressions: Service Date/Time: May 10:44 - CONCLUSION: 1. No evidence of vasospasm Brandon Herrera MD Head CT 05/31/16 0000 Signed Impressions: Service Date/Time: May 10:44 - CONCLUSION: Extensive subarachnoid hemorrhage including significant hemorrhage in the foramen magnum similar to the 05/29/16 exam. The ventricles do appear to be larger today with significant intraventricular hemorrhage present. Ventriculostomy catheter in good position. David Spencer MD Objective Remarks GENERAL: 66 year old female, critically ill SKIN: Warm and dry. No rash HEAD: Status post right frontal daquan hole ventriculostomy EYES: PERRL. Around 5 mm bilaterally. No scleral icterus. No injection or drainage. NECK: Supple, trachea midline. No JVD or lymphadenopathy. Tracheostomy site intact without bleeding CARDIOVASCULAR: RRR. S1, S2 no sore. Without murmur RESPIRATORY: Breath sounds diminished in the bases bilaterally. Decreased air sounds anteriorly bilaterally. Few crackles appreciated bilaterally No wheezing. GASTROINTESTINAL: Abdomen soft, non-tender, nondistended. PEG tube site is clean dry and intact. Positive bowel sounds appreciated MUSCULOSKELETAL: With trace lower extremity edema Neuro: Currently no significant movement in uppers extremities, weakly withdrawals in her bilateral LEs. Eyes are spontaneously open. Intermittently wiggles toes to command. A/P Problem List: (1) Subarachnoid hemorrhage ICD Code: I60.9 Status: Acute (2) Atrial fibrillation ICD Code: I48.91 Status: Acute (3) Coagulopathy ICD Code: D68.9 Status: Acute (4) Respiratory failure ICD Code: J96.90 Status: Acute (5) Hypertension ICD Code: I10 Status: Acute Assessment and Plan Neuro/Psych: Spontaneous subarachnoid bleed with severe vasospasm Intracranial hypertension Malignant cerebral edema Seizures --CT head subarachnoid hemorrhage, MRI/A revealed no mass/source of bleeding --EEG 05/31 revealed moderate encephalopathy. No epileptiform activity q1h neuro checks Nimodipine 60 mg every 4 hours for 21 days Four-vessel angiogram 05/29 negative for aneurysm of vasospasm. No FMD - unable to access left vertebral artery off sedation, as long as ICPs are controlled --s/p 3% nacl. slowly normalizing Na, eventual goal Na 140 - 145. Today 137. start 2% at 30 ml per hour and reduce NS to 150 ml per hour --Keppra 1000 twice a day and Dilantin 100mg iv q12h. recheck phenytoin level 06/05 was 7.8. Recheck 06/10 --Dr. Mtz: neurosurgery --CT/CTA 05/31: no evidence of vasospasm. --Daily TCDs --Negative cerebral angio to confirm 06/06. - 06/10 severe vasospasm in the most right cerebral arteries. Status post intra- arterial verapamil treatment by IR 06/10. Repeat TCD - H therapy with a systolic blood pressure goal 160-180 Respiratory: Acute Hypoxic and hypercarbic respiratory failure --PRVC ventilation 14/500/1/5/55 Vent bundle --Duo nebs every 6 hours As needed bronchodilator therapy Head of bed elevated Wean FiO2 for goal SPO2 greater than 92% -CTA chest negative for PE. Positive bilateral lower lobe atelectasis and small to moderate bilateral pleural effusions Cardiovascular: Severe vasoplegia/Distributive Shock- resolved History of hypertension Dyslipidemia History fibrillation/chronic Off vasopressors. - severe vasospasm. Target systolic blood pressure 160-180. Remains spontaneously on this range without vasopressors Nimodipine 60 mg every 4 21 days - Pravachol -Home medications are losartan/HCTZ 100/12.5 daily and metoprolol 25 mg twice a day. Hold all BP meds -Pravachol 40 mg for vasospasm prevention -Echocardiogram 05/31 revealed EF 65%. Moderate TR. POLO 54 mm Hg Renal: Parker for strict I's and O's -- Strict I/Os Avoid hypovolemia FEN/GI: Hypernatremia - resolving Acute protein calorie malnutrition- mild Hypokalemia Maintenance fluids normal saline. Avoid hypovolemia tube feeds, Jevity 1.5, goal 50 cc an hour -Pepcid twice a day for GI prophylaxis -Colace/Senokot for bowel regimen ICU electrolyte protocol Daily BMP Heme/ID: Coagulopathy secondary to Xarelto anticoagulation use for atrial fibrillation- resolved. Leukocytosis Daily CBC Status post K Centra Does not meet transfusion triggers at this time --holding Eliquis given SAH. Endocrine: Hyperglycemia of critical illness -- SSI, every 6 hours, medium scale Prophylaxis: GI Prophylaxis Pepcid iv q12h. DVT Prophylaxis -- SCDs Holding pharmacologic DVT prophylaxis given intracranial hemorrhage, EVD in place. Start once cleared by Neurosurgery Lines: 05/27 right IJ triple lumen catheter removed 06/06. Currently PIV Parker EVD Critical Care: The total critical care time was 35 minutes. Time to perform other separately billable procedures was not included in the critical care time. Mukund Restrepo MD Jun 11, 2016 16:33
[2016-06-11] MEDS: SODIUM CHLORIDE 23.4% INJ 188 MEQ in SODIUM CHLOR 0.9% 1000 ML INJ 1,000 ML IV SCH (18:50)
[2016-06-11] MEDS: PRAVASTATIN SOD 40 MG TAB PO SCH (20:34)
[2016-06-12] VITALS (18 sets, daily range): BP systolic 142–181; BP diastolic 62–88; PULSE 54–92; RESP 18–21; TEMP 97.2–99; O2SAT 97–100
[2016-06-12] MEDS: niMODipine 30 MG CAP PO SCH ×6 (00:17→20:08)
[2016-06-12] MEDS: SODIUM CHLOR 0.9% 1000 ML INJ 1,000 ML IV SCH ×4 (00:20→20:09)
[2016-06-12 01:35] LABS: POTASSIUM 3.4 MEQ/L (3.5-5.1)
[2016-06-12] MEDS: POTASSIUM CL 40 MEQ/30 ML LIQ UDC PO/TUBE PRN (03:32)
[2016-06-12] MEDS: CHLORHEXIDINE GLUCONATE 2 % 1 PACK (2 CLOTHS) TOP SCH (03:33)
[2016-06-12] MEDS: INSULIN NovoLIN REGULAR SUPPLEMENTAL SCALE SQ SCH ×4 (06:00→16:53)
[2016-06-12 06:05] LABS: AUTOMATED NEUTROPHIL # 13.9 TH/MM3 (1.8-7.7); BASOPHIL % 0.3 % (0.0-2.0); EOSINOPHIL # 0.1 TH/MM3 (0-0.4); EOSINOPHIL % 0.5 % (0.0-4.0); HEMATOCRIT 24.8 % (35.0-46.0); LYMPH % 5.7 % (9.0-44.0); LYMPHOCYTE # 0.9 TH/MM3 (1.0-4.8); MEAN CELL VOLUME 88.7 FL (80.0-100.0); MEAN CORPUSCULAR HEMOGLOBIN 30.6 PG (27.0-34.0); MEAN CORPUSCULAR HGB CONC 34.5 % (32.0-36.0); NEUT % 88.5 % (16.0-70.0); PLATELET COUNT 623 TH/MM3 (150-450); RED CELL DISTRIBUTION WIDTH 13.4 % (11.6-17.2); WHITE BLOOD COUNT 15.7 TH/MM3 (4.0-11.0)
[2016-06-12 06:21] LABS: HEMO FLAGS AUTO DIFF
[2016-06-12 07:13] LABS: ALKALINE PHOSPHATASE 259 U/L (45-117); ALT (GPT) 345 U/L (10-53); ANION GAP 10 MEQ/L (5-15); AST (GOT) 131 U/L (15-37); BICARBONATE 27.3 MEQ/L (21.0-32.0); BLOOD UREA NITROGEN 6 MG/DL (7-18); CHLORIDE 97 MEQ/L (98-107); GLOMERULAR FILTRATION RATE 263 ML/MIN (>89); MAGNESIUM 1.8 MG/DL (1.5-2.5); POTASSIUM 3.5 MEQ/L (3.5-5.1); SODIUM (NA) 134 MEQ/L (136-145); TOTAL BILIRUBIN ADULT 0.3 MG/DL (0.2-1.0)
[2016-06-12 08:06] LABS: PLATELET ESTIMATE SMEAR HIGH (NORMAL); PLATELET MORPHOLOGY NORMAL (NORMAL); SCAN/DIFF AUTO DIFF CONFIRMED
[2016-06-12] MEDS: DOCUSATE SODIUM 100 MG/10 ML UDC G-TUBE SCH ×2 (08:10→20:09)
[2016-06-12] MEDS: POLYETHYLENE GLYCOL 17 GM PKG PO SCH ×2 (08:11→20:10)
[2016-06-12] MEDS: SENNOSIDES SYRUP 8.8 MG/5 ML CUP PO/TUBE SCH ×2 (08:11→20:10)
[2016-06-12] MEDS: FOSPHENYTOIN SODIUM 100 MG PE/2 ML VIAL IV SCH ×2 (08:59→20:09)
[2016-06-12] MEDS: FAMOTIDINE 20 MG/2 ML VIAL IV PUSH SCH ×2 (08:59→20:08)
[2016-06-12] MEDS: levETIRAcetam 1000 MG INJ 100 ML IV SCH ×2 (08:59→20:09)
[2016-06-12] MEDS: CARVEDILOL 6.25 MG TAB PO SCH ×2 (09:00→20:09)
[2016-06-12] MEDS: LOSARTAN 25 MG TAB PO SCH (09:00)
[2016-06-12] MEDS: SODIUM CHLORIDE 0.9% FLUSH 5 ML FLUSH IV FLUSH SCH ×2 (09:00→20:09)
[2016-06-12] MEDS: HYDROCHLOROTHIAZIDE 12.5 MG CAP PO SCH (09:00)
[2016-06-12] MEDS: ARTIFICIAL TEARS OPTH SOLN 15 ML BTL EACH EYE SCH ×3 (09:02→16:53)
--- NOTE | 2016-06-12 10:40 | HHI.CCPN ---
Subjective Remarks/Hospital Course Hospital Course: 66 years old female was transferred to [facility] from [facility] in [place]. Patient and her was vacationing from [place]. They aware on the train while at around 2:00 patient started having severe headache and then vomited and then had a syncopal episode. Patient was transported to [facility] in [place]. On the way to the hospital, patient started having respiratory problem and patient was subsequently intubated. Patient has history of atrial fibrillation and hypertension and on Xarelto 20 mg daily, atorvastatin, HCTZ/ losartan, metoprolol. CT scan of the brain done at [facility] in [place] shows diffuse subarachnoid hemorrhage with intraventricular extension and early obstructive hydrocephalus developing. Dr. Mtz, neurosurgeon at [facility] was contacted and accepted transfer. 05/28: slight improvements, withdrawing to deep nailbed pressure. on cardene for hypertension. plan for angio today or tomorrow. 05/29: worsening neuro exam overnight. repeat head CT with effacement, slight compression of the brainstem. angiogram overnight without evidence of aneurysm or vasospasm. more hypotensive this morning on norepinephrine. flaccid x 4, no cough or gag. propofol turned off at 0600. 05/30: EEG with evidence of seizures. Keppra increased yesterday and Cerebryx loaded. this morning, on increasing vasopressor requirements. added phenylephrine on top of maximal levophed, vasopressin. echo with prelim hyperdynamic biventricular function. ICP stable. poor neurologic function. posturing in UEs. 05/31: vasopressors weaned overnight significantly, but remains on some support. repeat EEG improved with no evidence of ongoing ictal activity. ICP stable. this morning, no longer following commands in LEs, no longer posturing in upper extremities. discussed care with Dr. Mtz, will plan to go to CT/CTA brain to r /o vasospasm.06/01: CTA yesterday without evidence of vasospasm. TCDs negative today for vasospasm. still will intermittently follow commands in LEs, nothing in upper extremities. Na still very high, 160s. ICP well controlled. off vasopressors. 06/02: Na coming down slowly. TCDs pending for today. neuro exam stable. phenytoin level borderline high. 06/03: Tmax 100.4. Currently 99.1. Tolerating tube feeds at goal. Positive BM. Neuro exam remains stable. 3/6: Remains sedated, orally intubated on mechanical ventilation. Ventriculostomy in place. Cardene drip at 1 mg/h 06/05: Remains sedated, orally intubated on mechanical ventilation. Ventriculostomy in place. 8: AM laboratories currently pending. Afebrile. Noted cerebral angiogram without signs of vasospasm. 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 Dr. Mtz recommends per contains tracheostomy per RN. Tolerating tube feeding. 06/07: Tmax 99.5. Currently afebrile. Plan for cutaneous tracheostomy today. Ordered for PEG tube for a.m. Neurological unchanged with extension lower extremities flaccid upper extremities. 06/08: Tmax 100.8. This morning with acute episode acutely desaturated. Chest X-ray shows bilateral lower lobe infiltrates/pleural effusions. +600 cc past 24 hours. No bowel movement since 06/05. Status post PEG tube yesterday without complication. Subjective: 06/09: Afebrile. Desaturate yesterday requiring bronchoscopy. Thick white secretions noted throughout right in left lobes. Actually hard yellow secretions that coated the scope required multiple washings at end of ET tube probably causing desaturation. Currently down to 55%. Plan for tracheostomy today at 3 PM. 06/10 moderate vasospasm on TCD's on the right [place] ratio 3.7, severe vasospasm on CTA 06/11: Eyes open spontaneously tracking intermittently following commands by wiggling toes. s/p intraarterial administration of verapamil for vasospasm 06/10. 06/12: Fresh pus draining from subcutaneous tissue at PEG insertion site on abdominal wall. Cultures sent, abx started. Objective Vital Signs Date Time Temp Pulse Resp B/P Pulse Ox O2 Delivery O2 Flow Rate FiO2 06/12/16 10:00 54 06/12/16 08:00 98.2 18 180/74 100 06/12/16 08:00 40 Intake and Output 06/11/16 06/11/16 06/12/16 08:00 16:00 00:00 Intake Total 1870 ml 2328 ml 2280 ml Output Total 879 ml 1486 ml 1773 ml Balance 991 ml 842 ml 507 ml Result Diagram: 06/12/1652906/12/16 05 Imaging Last Impressions Transcranial Doppler Study Complete 06/08/16 0215 Signed Impressions: Service Date/Time: Wednesday, June 08, 2016 07:52 - CONCLUSION: There are no findings to indicate vasospasm. Lauro Lamb MD Liver Ultrasound 06/08/16 Signed Impressions: Service Date/Time: Wednesday, June 08, 2016 14:00 - CONCLUSION: Ultrasound appearance of the liver and surrounding structures within normal limits. Lauro Logan MD Chest X-Ray 06/08/16 Signed Impressions: Service Date/Time: Wednesday, June 08, 2016 16:02 - CONCLUSION: 1. No pneumothorax or other acute complication seen after bronchoscopy. 2. Mild consolidation and small effusions of both bases, stable on the left and slightly improved on the right. Lauro Logan MD CT Angiography 06/08/16 Signed Impressions: Service Date/Time: Wednesday, June 08, 2016 11:54 - CONCLUSION: 1. Bilateral pleural effusions with compressive atelectasis. 2. No pulmonary embolus. Lauro Logan MD Abdomen/Pelvis CT 06/08/16 Signed Impressions: Service Date/Time: Wednesday, June 08, 2016 11:54 - CONCLUSION: 1. There is mild distention of the colon but there are no findings to indicate bowel obstruction. A small volume of free fluid is present within the abdomen and pelvis. 2. Anasarca along with a presacral edema. 3. Small to moderate-sized bilateral pleural effusions with associated compressive atelectasis. Lauro Lamb MD Cerebral Arteriogram 06/05/16 Signed Impressions: Service Date/Time: Sunday, June 05, 2016 00:00 - CONCLUSION: 1. No evidence of aneurysm 2. 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 I do not see a mass. Etiology for the hemorrhage is not apparent. Dillon Zaragoza MD FACR Brain MRI 06/01/16 Signed Impressions: Service Date/Time: Wednesday, June 01, 2016 12:14 - CONCLUSION: 1. Intraventricular blood, negative for mass. Dillon Zaragoza MD FACR Head CTA 05/31/16 0000 Signed Impressions: Service Date/Time: May 10:44 - CONCLUSION: 1. No evidence of vasospasm Brandon Herrera MD Head CT 05/31/16 0000 Signed Impressions: Service Date/Time: May 10:44 - CONCLUSION: Extensive subarachnoid hemorrhage including significant hemorrhage in the foramen magnum similar to the 05/29/16 exam. The ventricles do appear to be larger today with significant intraventricular hemorrhage present. Ventriculostomy catheter in good position. David Spencer MD Objective Remarks GENERAL: 66 year old female, critically ill SKIN: Warm and dry. No rash HEAD: Status post right frontal daquan hole ventriculostomy EYES: PERRL. Around 3 mm bilaterally. No scleral icterus. No injection or drainage. NECK: Supple, trachea midline. No JVD or lymphadenopathy. Tracheostomy site intact without bleeding CARDIOVASCULAR: RRR. S1, S2 no sore. Without murmur. No JVD. RESPIRATORY: Breath sounds diminished in the bases bilaterally. Decreased air sounds anteriorly bilaterally. Few crackles appreciated bilaterally No wheezing. GASTROINTESTINAL: Abdomen soft, non-tender, nondistended. PEG tube site has foul draining pus. Positive bowel sounds. MUSCULOSKELETAL: With 1+ lower extremity edema Neuro: Currently no significant movement in uppers extremities, weakly withdrawals in her bilateral LEs. Eyes are spontaneously open. Intermittently wiggles toes to command. A/P Problem List: (1) Subarachnoid hemorrhage ICD Code: I60.9 Status: Acute (2) Atrial fibrillation ICD Code: I48.91 Status: Acute (3) Coagulopathy ICD Code: D68.9 Status: Acute (4) Respiratory failure ICD Code: J96.90 Status: Acute (5) Hypertension ICD Code: I10 Status: Acute Assessment and Plan Neuro/Psych: Spontaneous subarachnoid bleed with severe vasospasm Intracranial hypertension Malignant cerebral edema Seizures --CT head subarachnoid hemorrhage, MRI/A revealed no mass/source of bleeding --EEG 05/31 revealed moderate encephalopathy. No epileptiform activity q1h neuro checks Nimodipine 60 mg every 4 hours for 21 days Four-vessel angiogram 05/29 negative for aneurysm of vasospasm. No FMD - unable to access left vertebral artery off sedation, as long as ICPs are controlled --s/p 3% nacl. slowly normalizing Na, eventual goal Na 140 - 145. Today 137. start 2% at 30 ml per hour and reduce NS to 150 ml per hour --Keppra 1000 twice a day and Dilantin 100mg iv q12h. recheck phenytoin level 06/05 was 7.8. Recheck 06/10 --Dr. Mtz: neurosurgery --CT/CTA 05/31: no evidence of vasospasm. --Daily TCDs --Negative cerebral angio to confirm 06/06. - 06/10 severe vasospasm in the most right cerebral arteries. Status post intra- arterial verapamil treatment by IR 06/10. Repeat TCD - HHH therapy with a systolic blood pressure goal 160-180 Respiratory: Acute Hypoxic and hypercarbic respiratory failure --PRVC ventilation 14/500// Vent bundle --Duo nebs every 6 hours As needed bronchodilator therapy Head of bed elevated Wean FiO2 for goal SPO2 greater than 92% -CTA chest negative for PE. Positive bilateral lower lobe atelectasis and small to moderate bilateral pleural effusions Cardiovascular: Severe vasoplegia/Distributive Shock- resolved History of hypertension Dyslipidemia History fibrillation/chronic Off vasopressors. - severe vasospasm. Target systolic blood pressure 160-180. Remains spontaneously on this range without vasopressors Nimodipine 60 mg every 4 21 days - Pravachol -Home medications are losartan/HCTZ 100/12.5 daily and metoprolol 25 mg twice a day. Hold all BP meds -Pravachol 40 mg for vasospasm prevention -Echocardiogram 05/31 revealed EF 65%. Moderate TR. POLO 54 mm Hg Renal: Parker for strict I's and O's -- Strict I/Os Avoid hypovolemia FEN/GI: Hypernatremia - resolving Acute protein calorie malnutrition- mild Hypokalemia Maintenance fluids normal saline. Avoid hypovolemia tube feeds, Jevity 1.5, goal 50 cc an hour -Pepcid twice a day for GI prophylaxis -Colace/Senokot for bowel regimen ICU electrolyte protocol Daily BMP Heme/ID: Coagulopathy secondary to Xarelto anticoagulation use for atrial fibrillation- resolved. Leukocytosis Daily CBC Status post K Centra Does not meet transfusion triggers at this time --holding Eliquis given SAH. Endocrine: Hyperglycemia of critical illness -- SSI, every 6 hours, medium scale PEG site infection -Culture sent -Azactam, Levaquin, Vanc started 06/12 Prophylaxis: GI Prophylaxis Pepcid iv q12h. DVT Prophylaxis -- SCDs Holding pharmacologic DVT prophylaxis given intracranial hemorrhage, EVD in place. Start once cleared by Neurosurgery Lines: 05/27 right IJ triple lumen catheter removed 06/06. Currently PIV Parker EVD Overall impression: Slow progress s/p SAH. Mike Rizvi MD Jun 12, 2016 10:40
[2016-06-12] MEDS ORDERED: Vancomycin Consult Pharmacy 1 EA OTHER SCH (11:15)
[2016-06-12] MEDS: AZTREONAM INJ 1,000 MG in SODIUM CHLORIDE 0.9% INJ 100 ML IV SCH ×2 (12:02→20:09)
[2016-06-12] MEDS: LEVOFLOXACIN 750 MG PREMIX INJ 150 ML IV SCH (13:18)
[2016-06-12] MEDS: VANCOMYCIN INJ 1,500 MG in SODIUM CHLORID 0.9% 500 ML INJ 500 ML IV SCH (15:22)
[2016-06-12] MEDS: POTASSIUM CHLOR 20 MEQ PREMIX 100 ML IV PRN (16:03)
[2016-06-12] MEDS: ENOXAPARIN SODIUM 40 MG/0.4 ML SYRINGE SQ SCH (16:47)
--- NOTE | 2016-06-12 17:23 | HHI.NSPN ---
Note Status Status: Progress Note Interval History Interval History This is a 66 years old female was transferred to [facility] from [facility] for a subarachnoid hemorrhage. The patient and the was vacationing from [place]. They were on the train. Patient's states that around 2:00 this afternoon she suddenly developed severe headache and then vomited, and then had a syncopal episode. The train stopped. EMS was called. EMS personnel state that patient had altered status was able to follow commands and beginning without focal neurological deficit. No seizure activity. No tongue bitting. No tonic clonic movements. no incontinence of stool or urine. She was transported to [facility] in [place]. On the way to the hospital, she developed respiratory problem and patient was subsequently endotracheally intubated. She has history of atrial fibrillation and hypertension and was anticoagulated with Xarelto 20 mg daily. In addition she takes atorvastatin, HCTZ/ losartan, metoprolol. CT scan of the brain done at [facility] in [place] shows extensive subarachnoid and intraventricular hemorrhage with early obstructive hydrocephalus developing. She was placed given propofol and Cardene drip. Cardene drip and propofol was stopped secondary to hypotension on the way to the ED. Neurosurgical consultation was requested 05/28: intubated and sedated, s/p placement of ventriculostomy drain. CTA Brain neg for aneurysm, for cerebral angiography today, 05/29: seen this am during am round, withdrawing in the lower extremities, did not open eyes or follow commands for me, was reported to have followed with nursing. Cerebral angiography yesterday was neg for aneurysm. Then sergei Mario , patient having seizures, and posturing. ICPs has been 8-10, nursing reports EVD draining, CSF blood tinged. Transcranial doppler early this am negative for vasospasm 3/1: extends in uppers, withdraws in LEs 3/2: minimal withdrawals in the lower extremities, and extension. f/u CT Brain shows increased ventriculomegaly. CTA Head unremarkable for intracranial aneurysm. f/u EEG reports severe encephalopathy. ICPs at highest 8 overnight. 06/01: this morning slightly wiggled toes to command. ICPs below 5, EVD draining blood tinged CSF. 06/04: slightly opening eyes, EVD draining dark red CSF at 10 cm H20, ICPs at highest 8 overnight. 06/05: ICPs stable overnight, opening eyes. No reports of seizure like activities overnight. EVD continues to drain well. 06/06: cerebral angio completed yesterday, otherwise no neuro changes overnight. EVD draining, with stable ICPs. 06/07: opens eyes to pain stim, withdraws LE's, CSF dark red with stable ICPs 06/08: intubated, moderate eye opening, not tracking, not following commands. 06/11: eyes open, focuses, wiggled toes toe command. s/p intraarterial administration of verapamil for vasospasm 06/12: seen this morning during morning rounds, opens eyes, ICPs continues below 20. Labs, Micro, & Vital Signs Results Date Time Temp Pulse Resp B/P Pulse Ox O2 Delivery O2 Flow Rate FiO2 06/12/16 16:01 100 40 06/12/16 14:00 80 06/12/16 12:00 98.2 84 18 180/74 100 06/12/16 12:00 80 06/12/16 12:00 40 06/12/16 11:10 98 40 06/12/16 10:00 82 06/12/16 08:00 98.2 84 18 180/74 100 06/12/16 08:00 54 06/12/16 08:00 40 06/12/16 07:41 100 40 06/12/16 06:00 84 06/12/16 04:08 97 40 06/12/16 04:00 99.0 92 21 158/78 97 157/69 06/12/16 04:00 92 06/12/16 04:00 40 06/12/16 02:00 91 06/12/16 01:05 97 40 06/12/16 00:00 40 06/12/16 00:00 98.8 88 19 159/80 98 181/88 06/12/16 00:00 88 06/11/16 22:00 87 06/11/16 21:18 94 40 06/11/16 20:00 92 06/11/16 20:00 40 06/11/16 20:00 99.0 92 21 172/72 99 171/80 06/11/16 18:00 87 06/11/16 17:33 99 40 06/12/16 07:00 Intake Total 6215 ml Output Total 5581 ml Balance 634 ml Constitutional Vital Signs Date Time Temp Pulse Resp B/P Pulse Ox O2 Delivery O2 Flow Rate FiO2 06/12/16 16:01 100 40 06/12/16 14:00 80 06/12/16 12:00 98.2 84 18 180/74 100 06/12/16 12:00 80 06/12/16 12:00 40 06/12/16 11:10 98 40 06/12/16 10:00 82 06/12/16 08:00 98.2 84 18 180/74 100 06/12/16 08:00 54 06/12/16 08:00 40 06/12/16 07:41 100 40 06/12/16 06:00 84 06/12/16 04:08 97 40 06/12/16 04:00 99.0 92 21 158/78 97 157/69 06/12/16 04:00 92 06/12/16 04:00 40 06/12/16 02:00 91 06/12/16 01:05 97 40 06/12/16 00:00 40 06/12/16 00:00 98.8 88 19 159/80 98 181/88 06/12/16 00:00 88 06/11/16 22:00 87 06/11/16 21:18 94 40 06/11/16 20:00 92 06/11/16 20:00 40 06/11/16 20:00 99.0 92 21 172/72 99 171/80 06/11/16 18:00 87 06/11/16 17:33 99 40 06/12/16 07:00 Intake Total 6215 ml Output Total 5581 ml Balance 634 ml Review of Systems/Exam Exam Ms. Michaels with eyes slightly open, she does not follow commands. Right ventriculostomy drain at 15 cm H20, draining well, dark red CSF, ICPs within normal limits Cranial Nerves: Pupils 4 mm b/l reactive to 3 mm. Sensorimotor: no spontaneous movements seen, withdraws lower extremities to local stimuli, no withdrawals in the UE to pain stimuli Plantars equivocal. Cerebellar: cannot assess due to her condition Medications Current Medications Current Medications Medications (Trade) Dose Ordered Sig/Jerry Route PRN Reason Start Time Stop Time Status Last Admin Dose Admin Propofol (Diprivan 1000 Mg/100ml Inj) 100 ml @ 0 mls/hr TITRATE IV 05/27/16 19:45 05/28/16 23:16 IV Flush (NS Flush) 2 ml UNSCH PRN IV FLUSH FLUSH AFTER USING IV ACCESS 05/27/16 20:45 05/27/16 22:30 IV Flush (NS Flush) 2 ml BID IV FLUSH 05/27/16 21:00 06/12/16 09:00 Acetaminophen (Tylenol) 650 mg Q6H PRN PO PAIN 1-10 AND/OR FEVER >101F 05/27/16 20:45 06/07/16 17:14 Famotidine (Pepcid Inj) 20 mg Q12HR IV PUSH 05/27/16 21:00 06/12/16 08:59 Artificial Tears (Tears Naturale Opth Soln) 1 drop TID EACH EYE 05/28/16 09:00 06/12/16 16:53 Ondansetron HCl (Zofran Inj) 4 mg Q6H PRN IV NAUSEA OR VOMITING 05/27/16 20:45 Docusate Sodium (Colace Liq) 100 mg Q12H G-TUBE 05/27/16 20:45 06/10/16 08:44 Miscellaneous Information 1 Q361D XX 05/27/16 20:45 05/27/16 20:45 Chlorhexidine Gluconate (Chlorhexidine 2% Cloth) Taper DAILY@04 TOP 05/28/16 04:00 05/24/17 03:59 06/11/16 03:10 Chlorhexidine Gluconate 3 pack 3 pack UNSCH PRN TOP HYGIENIC CARE 05/27/16 20:45 Nicardipine HCl/ Sodium Chloride (Cardene Inj/NS 250 ml Inj) 260 ml @ 0 mls/hr TITRATE IV 05/27/16 21:00 06/09/16 15:00 Nimodipine (Nimotop) 60 mg Q4HR PO 05/28/16 00:00 06/12/16 16:46 Pravastatin Sodium 40 mg 40 mg HS PO 05/27/16 21:00 06/11/16 20:34 Levetriacetam 100 ml @ 400 mls/hr Q12HR IV 05/28/16 09:00 06/12/16 08:59 Potassium Chloride 100 ml @ 50 mls/hr Q2H PRN IV For Potassium 2.8 - 3.2 mEq/L 05/28/16 01:45 06/04/16 13:40 Potassium Chloride (KCl 20 Meq Premix Inj) 100 ml @ 50 mls/hr Q2H PRN IV For Potassium 2.8 - 3.2 mEq/L 05/28/16 01:45 06/11/16 14:13 Potassium Chloride 40 meq 40 meq UNSCH PRN PO/TUBE For Potassium 3.3 - 3.5 mEq/L 05/28/16 01:45 06/12/16 03:32 Potassium Chloride 100 ml @ 25 mls/hr UNSCH PRN IV For Potassium 3.3 - 3.5 mEq/L 05/28/16 01:45 05/30/16 18:33 Potassium Chloride 100 ml @ 50 mls/hr Q2H PRN IV For Potassium 3.3 - 3.5 mEq/L 05/28/16 01:45 06/12/16 16:03 Magnesium Sulfate/ Sodium Chloride (Magnesium Sulfate Inj/NS Inj) 100 ml @ 50 mls/hr UNSCH PRN IV For Magnesium 0.9 - 1.1 mg/dL 05/28/16 01:45 Magnesium Oxide 800 mg 800 mg UNSCH PRN PO For Magnesium 1.2 - 1.6 mg/dL 05/28/16 01:45 Magnesium Sulfate/ Sodium Chloride (Magnesium Sulfate Inj/NS Inj) 100 ml @ 50 mls/hr UNSCH PRN IV For Magnesium 1.2 - 1.6 mg/dL 05/28/16 01:45 06/04/16 13:40 Potassium Phosphate 2000 mg 2,000 mg Q4H PRN PO For Phosphorus < 2.5 mg/dL 05/28/16 01:45 Sodium Phosphate/ Sodium Chloride (Sodium Phosphate Inj/NS 250 ml Inj) 250 ml @ 42 mls/hr UNSCH PRN IV For Phosphorus < 2.5 mg/dL 05/28/16 01:45 06/10/16 08:45 Potassium Chloride (KCl 40 Meq/30 ml Liq) 40 meq UNSCH PRN PO/TUBE SEE LABEL COMMENTS 05/28/16 01:45 06/03/16 05:31 Potassium Phosphate 2000 mg 2,000 mg UNSCH PRN PO/TUBE SEE LABEL COMMENTS 05/28/16 01:45 Potassium Phosphate/Sodium Chloride (Potassium Phosphate Inj/NS 250 ml Inj) 260 ml @ 42 mls/hr UNSCH PRN IV SEE LABEL COMMENTS 05/28/16 01:45 06/08/16 17:09 Dextrose (D50w (Vial) Inj) 25 ml UNSCH PRN IV PUSH HYPOGLYCEMIA-SEE COMMENTS 05/29/16 07:30 Insulin Human Regular (NovoLIN R SUPPLEMENTAL SCALE) 1 Q6HR SQ 05/29/16 12:00 06/11/16 12:06 Fosphenytoin Sodium (Cerebyx Inj) 100 mgpe Q12HR IV 06/02/16 09:00 06/12/16 08:59 Sennosides (Senna Liq) 8.8 mg BID PO/TUBE 06/07/16 09:00 06/10/16 08:45 Glycerin (Glycerin Adult Supp) 2 gm BID PRN RECTAL CONSTIPATION 06/07/16 09:00 Polyethylene Glycol (Miralax) 17 gm BID PO 06/08/16 21:00 06/10/16 08:45 Losartan Potassium (Cozaar) 25 mg DAILY PO 06/09/16 15:00 06/11/16 09:52 Hydrochlorothiazide (Microzide) 12.5 mg DAILY PO 06/10/16 09:00 06/11/16 09:52 Carvedilol 6.25 mg 6.25 mg Q12HR PO 06/09/16 21:00 06/11/16 20:34 Sodium Chloride 1,000 ml @ 150 mls/hr Q6H40M IV 06/10/16 20:00 06/12/16 07:00 Sodium Chloride/ Sodium Chloride (Sodium Chloride 23.4% Inj/NS 1000 ml Inj) 1,047 ml @ 30 mls/hr Q24H IV 06/11/16 17:00 06/11/16 18:50 Enoxaparin Sodium 40 mg 40 mg Q24H SQ 06/11/16 17:00 06/12/16 16:47 Aztreonam 1000 mg/ Sodium Chloride 100 ml @ 200 mls/hr Q8H IV 06/12/16 12:00 06/12/16 12:02 Levofloxacin/ Dextrose 150 ml @ 100 mls/hr Q24H IV 06/12/16 13:00 06/12/16 13:18 Pharmacy Profile Note 0 ml @ 0 mls/hr UNSCH OTHER 06/12/16 11:15 Vancomycin HCl/ Sodium Chloride (Vancomycin Inj/ NS 500 ml Inj) 515 ml @ 250 mls/hr Q12H IV 06/12/16 14:00 06/12/16 15:22 Miscellaneous Information SPECIFIC LAB TO BE DRAWN:VANCOMYCIN TROUGH DATE TO... ONCE ONCE XX 06/14/16 01:45 06/14/16 01:46 Medical Decision Making MDM Remarks 66 y/o female with subarachnoid hemorrhage suspected intracranial aneurysm, placement of ventriculostomy drain, ICPs remains within normal range CTA Head x 2 negative for aneurysm, Cerebral angiography neg for aneurysm, repeat cerebral angio 06/05/16 again neg for intracranial aneurysm TCD and CTA Head 06/10 with vasospasm, s/p intra-arterial administration of verapamil Plan Plan Remarks cont challening EVD, raise to 15 cm H20 today neuro exam slowly improving cont serial neuro checks cont critical care mgt, ok to start lovenox for dvt prophylaxis. Allison Mccullough Jun 12, 2016 17:23
[2016-06-12] MEDS: SODIUM CHLORIDE 23.4% INJ 188 MEQ in SODIUM CHLOR 0.9% 1000 ML INJ 1,000 ML IV SCH (19:43)
[2016-06-12] MEDS: PRAVASTATIN SOD 40 MG TAB PO SCH (20:09)
[2016-06-12 23:44] LABS: POTASSIUM 3.2 MEQ/L (3.5-5.1)
[2016-06-13] VITALS (18 sets, daily range): BP systolic 127–183; BP diastolic 67–80; PULSE 76–92; RESP 18–20; TEMP 96–97.2; O2SAT 98–100
[2016-06-13] MEDS: POTASSIUM CHLOR 20 MEQ PREMIX 100 ML IV PRN (00:08)
[2016-06-13] MEDS: niMODipine 30 MG CAP PO SCH ×6 (00:12→20:27)
[2016-06-13] MEDS: SODIUM CHLOR 0.9% 1000 ML INJ 1,000 ML IV SCH ×3 (02:13→17:01)
[2016-06-13] MEDS: VANCOMYCIN INJ 1,500 MG in SODIUM CHLORID 0.9% 500 ML INJ 500 ML IV SCH ×2 (02:13→15:55)
[2016-06-13] MEDS: CHLORHEXIDINE GLUCONATE 2 % 1 PACK (2 CLOTHS) TOP SCH (04:00)
[2016-06-13] MEDS: AZTREONAM INJ 1,000 MG in SODIUM CHLORIDE 0.9% INJ 100 ML IV SCH ×3 (04:12→20:27)
[2016-06-13 05:18] LABS: BICARBONATE 24.4 MEQ/L (21.0-32.0); POTASSIUM 3.6 MEQ/L (3.5-5.1)
[2016-06-13] MEDS: INSULIN NovoLIN REGULAR SUPPLEMENTAL SCALE SQ SCH ×4 (06:00→16:59)
[2016-06-13] MEDS: DOCUSATE SODIUM 100 MG/10 ML UDC G-TUBE SCH ×2 (08:42→20:28)
[2016-06-13] MEDS: SENNOSIDES SYRUP 8.8 MG/5 ML CUP PO/TUBE SCH ×2 (08:43→20:28)
[2016-06-13] MEDS: POLYETHYLENE GLYCOL 17 GM PKG PO SCH ×2 (08:43→20:28)
[2016-06-13] MEDS: HYDROCHLOROTHIAZIDE 12.5 MG CAP PO SCH (09:00)
[2016-06-13] MEDS: LOSARTAN 25 MG TAB PO SCH (09:00)
[2016-06-13] MEDS: CARVEDILOL 6.25 MG TAB PO SCH ×2 (09:00→20:27)
[2016-06-13] MEDS: ARTIFICIAL TEARS OPTH SOLN 15 ML BTL EACH EYE SCH ×3 (09:00→17:01)
[2016-06-13] MEDS: FAMOTIDINE 20 MG/2 ML VIAL IV PUSH SCH ×2 (09:08→20:28)
[2016-06-13] MEDS: levETIRAcetam 1000 MG INJ 100 ML IV SCH ×2 (09:08→20:27)
[2016-06-13] MEDS: FOSPHENYTOIN SODIUM 100 MG PE/2 ML VIAL IV SCH ×2 (09:09→20:27)
[2016-06-13] MEDS: SODIUM CHLORIDE 0.9% FLUSH 5 ML FLUSH IV FLUSH SCH ×2 (09:10→20:28)
--- NOTE | 2016-06-13 10:06 | HHI.NSPN ---
(Allison Mccullough) Note Status Status: Progress Note (Allison Mccullough) Interval History Interval History This is a 66 years old female was transferred to [facility] from [facility] for a subarachnoid hemorrhage. The patient and the was vacationing from [place]. They were on the train. Patient's states that around 2:00 this afternoon she suddenly developed severe headache and then vomited, and then had a syncopal episode. The train stopped. EMS was called. EMS personnel state that patient had altered status was able to follow commands and beginning without focal neurological deficit. No seizure activity. No tongue bitting. No tonic clonic movements. no incontinence of stool or urine. She was transported to [facility] in [place]. On the way to the hospital, she developed respiratory problem and patient was subsequently endotracheally intubated. She has history of atrial fibrillation and hypertension and was anticoagulated with Xarelto 20 mg daily. In addition she takes atorvastatin, HCTZ/ losartan, metoprolol. CT scan of the brain done at [facility] in [place] shows extensive subarachnoid and intraventricular hemorrhage with early obstructive hydrocephalus developing. She was placed given propofol and Cardene drip. Cardene drip and propofol was stopped secondary to hypotension on the way to the ED. Neurosurgical consultation was requested 05/28: intubated and sedated, s/p placement of ventriculostomy drain. CTA Brain neg for aneurysm, for cerebral angiography today, 05/29: seen this am during am round, withdrawing in the lower extremities, did not open eyes or follow commands for me, was reported to have followed with nursing. Cerebral angiography yesterday was neg for aneurysm. Then sergei Mario , patient having seizures, and posturing. ICPs has been 8-10, nursing reports EVD draining, CSF blood tinged. Transcranial doppler early this am negative for vasospasm 3/1: extends in uppers, withdraws in LEs 3/2: minimal withdrawals in the lower extremities, and extension. f/u CT Brain shows increased ventriculomegaly. CTA Head unremarkable for intracranial aneurysm. f/u EEG reports severe encephalopathy. ICPs at highest 8 overnight. 06/01: this morning slightly wiggled toes to command. ICPs below 5, EVD draining blood tinged CSF. 06/04: slightly opening eyes, EVD draining dark red CSF at 10 cm H20, ICPs at highest 8 overnight. 06/05: ICPs stable overnight, opening eyes. No reports of seizure like activities overnight. EVD continues to drain well. 06/06: cerebral angio completed yesterday, otherwise no neuro changes overnight. EVD draining, with stable ICPs. 06/07: opens eyes to pain stim, withdraws LE's, CSF dark red with stable ICPs 06/08: intubated, moderate eye opening, not tracking, not following commands. 06/11: eyes open, focuses, wiggled toes toe command. s/p intraarterial administration of verapamil for vasospasm 06/12: seen this morning during morning rounds, opens eyes, ICPs continues below 20. 06/13: mouthing words, moving upper extremities to commands, tracking more. ( Allison Mccullough) Labs, Micro, & Vital Signs Results Date Time Temp Pulse Resp B/P Pulse Ox O2 Delivery O2 Flow Rate FiO2 06/13/16 08:14 99 40 06/13/16 06:00 76 06/13/16 04:13 99 40 06/13/16 04:00 40 06/13/16 04:00 80 06/13/16 04:00 96.4 80 18 182/76 100 06/13/16 02:00 81 06/13/16 01:08 98 40 06/13/16 00:00 97.0 79 18 127/78 100 06/13/16 00:00 79 06/13/16 00:00 40 06/12/16 22:00 80 06/12/16 20:00 97.2 80 18 172/72 100 06/12/16 20:00 40 06/12/16 20:00 80 06/12/16 19:48 100 40 06/12/16 18:00 84 06/12/16 16:01 100 40 06/12/16 16:00 97.2 84 18 162/74 100 06/12/16 16:00 40 06/12/16 16:00 84 06/12/16 14:00 82 06/12/16 12:00 97.5 80 18 142/62 99 06/12/16 12:00 80 06/12/16 12:00 40 06/12/16 11:10 98 40 06/13/16 07:00 Intake Total 6379 ml Output Total 16360 ml Balance -5373 ml Constitutional Vital Signs Date Time Temp Pulse Resp B/P Pulse Ox O2 Delivery O2 Flow Rate FiO2 06/13/16 08:14 99 40 06/13/16 06:00 76 06/13/16 04:13 99 40 06/13/16 04:00 40 06/13/16 04:00 80 06/13/16 04:00 96.4 80 18 182/76 100 06/13/16 02:00 81 06/13/16 01:08 98 40 06/13/16 00:00 97.0 79 18 127/78 100 06/13/16 00:00 79 06/13/16 00:00 40 06/12/16 22:00 80 06/12/16 20:00 97.2 80 18 172/72 100 06/12/16 20:00 40 06/12/16 20:00 80 06/12/16 19:48 100 40 06/12/16 18:00 84 06/12/16 16:01 100 40 06/12/16 16:00 97.2 84 18 162/74 100 06/12/16 16:00 40 06/12/16 16:00 84 06/12/16 14:00 82 06/12/16 12:00 97.5 80 18 142/62 99 06/12/16 12:00 80 06/12/16 12:00 40 06/12/16 11:10 98 40 06/13/16 07:00 Intake Total 6379 ml Output Total 17474 ml Balance -5373 ml (Allison Mccullough) Review of Systems/Exam Exam Ms. Michaels with eyes open, tracking around the room. Follows few simple commands. Right ventriculostomy drain at 15 cm H20, CSF blood tinged, ICPs within normal limits. EVD site clean with dressing in place, no signs of infection. Cranial Nerves: Pupils 4 mm b/l reactive to 3 mm. Sensorimotor: moved upper extremities grossly 2-3/5 to command, wiggled both toes to command Plantars equivocal. Cerebellar: cannot assess due to her condition (Allison Mccullough) Exam Ms. Michaels with eyes open, tracking around the room. Follows few simple commands. Right ventriculostomy drain at 15 cm H20, CSF blood tinged, ICPs within normal limits. EVD site clean with dressing in place, no signs of infection. Cranial Nerves: Pupils 4 mm b/l reactive to 3 mm. Sensorimotor: moved upper extremities grossly 2-3/5 to command, wiggled both toes to command Plantars equivocal. Cerebellar: unable to assess due to her condition (Arcenio Mtz MD) Medications Current Medications Current Medications Medications (Trade) Dose Ordered Sig/Jerry Route PRN Reason Start Time Stop Time Status Last Admin Dose Admin Propofol (Diprivan 1000 Mg/100ml Inj) 100 ml @ 0 mls/hr TITRATE IV 05/27/16 19:45 05/28/16 23:16 IV Flush (NS Flush) 2 ml UNSCH PRN IV FLUSH FLUSH AFTER USING IV ACCESS 05/27/16 20:45 05/27/16 22:30 IV Flush (NS Flush) 2 ml BID IV FLUSH 05/27/16 21:00 06/13/16 09:10 Acetaminophen (Tylenol) 650 mg Q6H PRN PO PAIN 1-10 AND/OR FEVER >101F 05/27/16 20:45 06/07/16 17:14 Famotidine (Pepcid Inj) 20 mg Q12HR IV PUSH 05/27/16 21:00 06/13/16 09:08 Artificial Tears (Tears Naturale Opth Soln) 1 drop TID EACH EYE 05/28/16 09:00 06/13/16 09:00 Ondansetron HCl (Zofran Inj) 4 mg Q6H PRN IV NAUSEA OR VOMITING 05/27/16 20:45 Docusate Sodium (Colace Liq) 100 mg Q12H G-TUBE 05/27/16 20:45 06/10/16 08:44 Miscellaneous Information 1 Q361D XX 05/27/16 20:45 05/27/16 20:45 Chlorhexidine Gluconate (Chlorhexidine 2% Cloth) Taper DAILY@04 TOP 05/28/16 04:00 05/24/17 03:59 06/11/16 03:10 Chlorhexidine Gluconate 3 pack 3 pack UNSCH PRN TOP HYGIENIC CARE 05/27/16 20:45 Nicardipine HCl/ Sodium Chloride (Cardene Inj/NS 250 ml Inj) 260 ml @ 0 mls/hr TITRATE IV 05/27/16 21:00 06/09/16 15:00 Nimodipine (Nimotop) 60 mg Q4HR PO 05/28/16 00:00 06/13/16 09:10 Pravastatin Sodium 40 mg 40 mg HS PO 05/27/16 21:00 06/12/16 20:09 Levetriacetam 100 ml @ 400 mls/hr Q12HR IV 05/28/16 09:00 06/13/16 09:08 Potassium Chloride 100 ml @ 50 mls/hr Q2H PRN IV For Potassium 2.8 - 3.2 mEq/L 05/28/16 01:45 06/04/16 13:40 Potassium Chloride (KCl 20 Meq Premix Inj) 100 ml @ 50 mls/hr Q2H PRN IV For Potassium 2.8 - 3.2 mEq/L 05/28/16 01:45 06/13/16 00:08 Potassium Chloride 40 meq 40 meq UNSCH PRN PO/TUBE For Potassium 3.3 - 3.5 mEq/L 05/28/16 01:45 06/12/16 03:32 Potassium Chloride 100 ml @ 25 mls/hr UNSCH PRN IV For Potassium 3.3 - 3.5 mEq/L 05/28/16 01:45 05/30/16 18:33 Potassium Chloride 100 ml @ 50 mls/hr Q2H PRN IV For Potassium 3.3 - 3.5 mEq/L 05/28/16 01:45 06/12/16 16:03 Magnesium Sulfate/ Sodium Chloride (Magnesium Sulfate Inj/NS Inj) 100 ml @ 50 mls/hr UNSCH PRN IV For Magnesium 0.9 - 1.1 mg/dL 05/28/16 01:45 Magnesium Oxide 800 mg 800 mg UNSCH PRN PO For Magnesium 1.2 - 1.6 mg/dL 05/28/16 01:45 Magnesium Sulfate/ Sodium Chloride (Magnesium Sulfate Inj/NS Inj) 100 ml @ 50 mls/hr UNSCH PRN IV For Magnesium 1.2 - 1.6 mg/dL 05/28/16 01:45 06/04/16 13:40 Potassium Phosphate 2000 mg 2,000 mg Q4H PRN PO For Phosphorus < 2.5 mg/dL 05/28/16 01:45 Sodium Phosphate/ Sodium Chloride (Sodium Phosphate Inj/NS 250 ml Inj) 250 ml @ 42 mls/hr UNSCH PRN IV For Phosphorus < 2.5 mg/dL 05/28/16 01:45 06/10/16 08:45 Potassium Chloride (KCl 40 Meq/30 ml Liq) 40 meq UNSCH PRN PO/TUBE SEE LABEL COMMENTS 05/28/16 01:45 06/03/16 05:31 Potassium Phosphate 2000 mg 2,000 mg UNSCH PRN PO/TUBE SEE LABEL COMMENTS 05/28/16 01:45 Potassium Phosphate/Sodium Chloride (Potassium Phosphate Inj/NS 250 ml Inj) 260 ml @ 42 mls/hr UNSCH PRN IV SEE LABEL COMMENTS 05/28/16 01:45 06/08/16 17:09 Dextrose (D50w (Vial) Inj) 25 ml UNSCH PRN IV PUSH HYPOGLYCEMIA-SEE COMMENTS 05/29/16 07:30 Insulin Human Regular (NovoLIN R SUPPLEMENTAL SCALE) 1 Q6HR SQ 05/29/16 12:00 06/11/16 12:06 Fosphenytoin Sodium (Cerebyx Inj) 100 mgpe Q12HR IV 06/02/16 09:00 06/13/16 09:09 Sennosides (Senna Liq) 8.8 mg BID PO/TUBE 06/07/16 09:00 06/10/16 08:45 Glycerin (Glycerin Adult Supp) 2 gm BID PRN RECTAL CONSTIPATION 06/07/16 09:00 Polyethylene Glycol (Miralax) 17 gm BID PO 06/08/16 21:00 06/10/16 08:45 Losartan Potassium (Cozaar) 25 mg DAILY PO 06/09/16 15:00 06/11/16 09:52 Hydrochlorothiazide (Microzide) 12.5 mg DAILY PO 06/10/16 09:00 06/11/16 09:52 Carvedilol 6.25 mg 6.25 mg Q12HR PO 06/09/16 21:00 06/12/16 20:09 Sodium Chloride 1,000 ml @ 150 mls/hr Q6H40M IV 06/10/16 20:00 06/13/16 09:11 Sodium Chloride/ Sodium Chloride (Sodium Chloride 23.4% Inj/NS 1000 ml Inj) 1,047 ml @ 30 mls/hr Q24H IV 06/11/16 17:00 06/12/16 19:43 Enoxaparin Sodium 40 mg 40 mg Q24H SQ 06/11/16 17:00 06/12/16 16:47 Aztreonam 1000 mg/ Sodium Chloride 100 ml @ 200 mls/hr Q8H IV 06/12/16 12:00 06/13/16 04:12 Levofloxacin/ Dextrose 150 ml @ 100 mls/hr Q24H IV 06/12/16 13:00 06/12/16 13:18 Pharmacy Profile Note 0 ml @ 0 mls/hr UNSCH OTHER 06/12/16 11:15 Vancomycin HCl/ Sodium Chloride (Vancomycin Inj/ NS 500 ml Inj) 515 ml @ 250 mls/hr Q12H IV 06/12/16 14:00 06/13/16 02:13 Miscellaneous Information SPECIFIC LAB TO BE DRAWN:VANCOMYCIN TROUGH DATE TO... ONCE ONCE XX 06/14/16 01:45 06/14/16 01:46 (Allison Mccullough) Medical Decision Making MDM Remarks 66 y/o female with subarachnoid hemorrhage suspected intracranial aneurysm, placement of ventriculostomy drain CTA Head x 2 negative for aneurysm, Cerebral angiography neg for aneurysm, repeat cerebral angio 06/05/16 again neg for intracranial aneurysm TCD and CTA Head 06/10 with vasospasm, s/p intra-arterial administration of verapamil neurological examination improving, challenging ventriculostomy drain (Allison Mccullough) Plan Plan Remarks EVD to 17 cm H20 today cont monitor ICPs and neuro checks CPAP trials and vent weaning as tolerated (Allison Mccullough) Attending Statement Continue neuro checks.her condition is fluctuating. Follow up TCD today. Continue CSF drainage via ventriculostomy Respiratory. Continue mechanical ventilation pulmonary toilette, nasotracheal suction, and breathing treatments with nebulizers. Hypertension As needed Cardene to maintain systolic blood pressure less than 150. PT and OT eval Nutrition. tube feedings Renal. Continue to monitor closely urine output, BUN and creatinine Endocrine. Continue to Monitor serial Acu checks and SSI for tight control ID continue to monitor for signs of infection Continue Protonix for stress ulcer prophylaxis Continue Julio hose and SCD's for DVT prophylaxis (Arcenio Mtz MD) Allison Mccullough Jun 13, 2016 10:06 Arcenio Mtz MD Jun 14, 2016 16:18
--- NOTE | 2016-06-13 12:04 | MP ---
cc: YOGI JOSEPH MD DATE OF SURGERY: 06/09/2016 PREOPERATIVE DIAGNOSIS Respiratory failure. POSTOPERATIVE DIAGNOSIS Respiratory failure. OPERATIVE PROCEDURE The patient was prepped and draped in the usual fashion. The area was infiltrated with 1% Xylocaine. An incision was made in the anterior neck and then needle inserted into the trachea under vision with bronchoscopy. The catheter is placed between the second and third tracheal ring and through the catheter a guidewire was inserted distally. Over the guidewire a punch dilator is placed and then a large Blue Rhino dilator is placed. The Blue Rhino is now withdrawn and an 8 Shiley cannula is positioned, sutured in place with 2-0 Prolene and connected to the ventilator. The end-tidal CO2 is checked. The patient is now bronchoscoped by Dr. Crow. The Shiley cannula is secured with a string around the neck. The patient tolerated the procedure well. oYgi SALMERON/LELAND /4:31 PM /10:38 AM
[2016-06-13] MEDS: LEVOFLOXACIN 750 MG PREMIX INJ 150 ML IV SCH (12:47)
--- NOTE | 2016-06-13 15:17 | HHI.CCPN ---
Subjective Remarks/Hospital Course Hospital Course: 66 years old female was transferred to [facility] from [facility] in [place]. Patient and her was vacationing from [place]. They aware on the train while at around 2:00 patient started having severe headache and then vomited and then had a syncopal episode. Patient was transported to [facility] in [place]. On the way to the hospital, patient started having respiratory problem and patient was subsequently intubated. Patient has history of atrial fibrillation and hypertension and on Xarelto 20 mg daily, atorvastatin, HCTZ/ losartan, metoprolol. CT scan of the brain done at [facility] in [place] shows diffuse subarachnoid hemorrhage with intraventricular extension and early obstructive hydrocephalus developing. Dr. Mtz, neurosurgeon at [facility] was contacted and accepted transfer. 05/28: slight improvements, withdrawing to deep nailbed pressure. on cardene for hypertension. plan for angio today or tomorrow. 05/29: worsening neuro exam overnight. repeat head CT with effacement, slight compression of the brainstem. angiogram overnight without evidence of aneurysm or vasospasm. more hypotensive this morning on norepinephrine. flaccid x 4, no cough or gag. propofol turned off at 0600. 05/30: EEG with evidence of seizures. Keppra increased yesterday and Cerebryx loaded. this morning, on increasing vasopressor requirements. added phenylephrine on top of maximal levophed, vasopressin. echo with prelim hyperdynamic biventricular function. ICP stable. poor neurologic function. posturing in UEs. 05/31: vasopressors weaned overnight significantly, but remains on some support. repeat EEG improved with no evidence of ongoing ictal activity. ICP stable. this morning, no longer following commands in LEs, no longer posturing in upper extremities. discussed care with Dr. Mtz, will plan to go to CT/CTA brain to r /o vasospasm.06/01: CTA yesterday without evidence of vasospasm. TCDs negative today for vasospasm. still will intermittently follow commands in LEs, nothing in upper extremities. Na still very high, 160s. ICP well controlled. off vasopressors. 06/02: Na coming down slowly. TCDs pending for today. neuro exam stable. phenytoin level borderline high. 06/03: Tmax 100.4. Currently 99.1. Tolerating tube feeds at goal. Positive BM. Neuro exam remains stable. 3/6: Remains sedated, orally intubated on mechanical ventilation. Ventriculostomy in place. Cardene drip at 1 mg/h 06/05: Remains sedated, orally intubated on mechanical ventilation. Ventriculostomy in place. 8: AM laboratories currently pending. Afebrile. Noted cerebral angiogram without signs of vasospasm. 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 Dr. Mtz recommends per contains tracheostomy per RN. Tolerating tube feeding. 06/07: Tmax 99.5. Currently afebrile. Plan for cutaneous tracheostomy today. Ordered for PEG tube for a.m. Neurological unchanged with extension lower extremities flaccid upper extremities. 06/08: Tmax 100.8. This morning with acute episode acutely desaturated. Chest X-ray shows bilateral lower lobe infiltrates/pleural effusions. +600 cc past 24 hours. No bowel movement since 06/05. Status post PEG tube yesterday without complication. Subjective: 06/09: Afebrile. Desaturate yesterday requiring bronchoscopy. Thick white secretions noted throughout right in left lobes. Actually hard yellow secretions that coated the scope required multiple washings at end of ET tube probably causing desaturation. Currently down to 55%. Plan for tracheostomy today at 3 PM. 06/10 moderate vasospasm on TCD's on the right Lindegaard ratio 3.7, severe vasospasm on CTA 06/11: Eyes open spontaneously tracking intermittently following commands by wiggling toes. s/p intraarterial administration of verapamil for vasospasm 06/10. 06/12: Fresh pus draining from subcutaneous tissue at PEG insertion site on abdominal wall. Cultures sent, abx started. 06/13: Purulent PEG site drainage growing Staph and a GNR. Continue Vanc and PIP /KORTNEY. Site looks aircraft cleaner today. Objective Vital Signs Date Time Temp Pulse Resp B/P Pulse Ox O2 Delivery O2 Flow Rate FiO2 06/13/16 14:00 86 06/13/16 12:00 96.3 20 182/80 99 06/13/16 12:00 40 Intake and Output 06/12/16 06/12/16 06/13/16 08:00 16:00 00:00 Intake Total 1607 ml 1768 ml 2277 ml Output Total 2322 ml 4026 ml 4364 ml Balance -715 ml -2258 ml -2087 ml Result Diagram: 06/12/16 0530 06/13/16 0420 Imaging Last Impressions Transcranial Doppler Study Complete 06/08/16 0215 Signed Impressions: Service Date/Time: Wednesday, June 08, 2016 07:52 - CONCLUSION: There are no findings to indicate vasospasm. Lauro Lamb MD Liver Ultrasound 06/08/16 Signed Impressions: Service Date/Time: Wednesday, June 08, 2016 14:00 - CONCLUSION: Ultrasound appearance of the liver and surrounding structures within normal limits. Lauro Logan MD Chest X-Ray 06/08/16 Signed Impressions: Service Date/Time: Wednesday, June 08, 2016 16:02 - CONCLUSION: 1. No pneumothorax or other acute complication seen after bronchoscopy. 2. Mild consolidation and small effusions of both bases, stable on the left and slightly improved on the right. Lauro Logan MD CT Angiography 06/08/16 Signed Impressions: Service Date/Time: Wednesday, June 08, 2016 11:54 - CONCLUSION: 1. Bilateral pleural effusions with compressive atelectasis. 2. No pulmonary embolus. Lauro Logan MD Abdomen/Pelvis CT 06/08/16 Signed Impressions: Service Date/Time: Wednesday, June 08, 2016 11:54 - CONCLUSION: 1. There is mild distention of the colon but there are no findings to indicate bowel obstruction. A small volume of free fluid is present within the abdomen and pelvis. 2. Anasarca along with a presacral edema. 3. Small to moderate-sized bilateral pleural effusions with associated compressive atelectasis. Lauro Lamb MD Cerebral Arteriogram 06/05/16 Signed Impressions: Service Date/Time: Sunday, June 05, 2016 00:00 - CONCLUSION: 1. No evidence of aneurysm 2. 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 I do not see a mass. Etiology for the hemorrhage is not apparent. Dillon Zaragoza MD FACR Brain MRI 3/3/17 0000 Signed Impressions: Service Date/Time: Wednesday, June 01, 2016 12:14 - CONCLUSION: 1. Intraventricular blood, negative for mass. Dillon Zaragoza MD FACR Head CTA 05/31/16 0000 Signed Impressions: Service Date/Time: May 10:44 - CONCLUSION: 1. No evidence of vasospasm Brandon Herrera MD Head CT 05/31/16 0000 Signed Impressions: Service Date/Time: May 10:44 - CONCLUSION: Extensive subarachnoid hemorrhage including significant hemorrhage in the foramen magnum similar to the 05/29/16 exam. The ventricles do appear to be larger today with significant intraventricular hemorrhage present. Ventriculostomy catheter in good position. David Spencer MD Objective Remarks GENERAL: 66 year old female, critically ill SKIN: Warm and dry. No rash HEAD: Status post right frontal daquan hole ventriculostomy EYES: PERRL. Around 3 mm bilaterally. No scleral icterus. No injection or drainage. NECK: Supple, trachea midline. No JVD or lymphadenopathy. Tracheostomy site intact without bleeding CARDIOVASCULAR: RRR. S1, S2 no sore. Without murmur. No JVD. RESPIRATORY: Breath sounds diminished in the bases bilaterally. Decreased air sounds anteriorly bilaterally. No wheezing. GASTROINTESTINAL: Abdomen soft, non-tender, nondistended. PEG tube site has less foul draining pus. Positive bowel sounds. MUSCULOSKELETAL: With 1+ lower extremity edema Neuro: Uses both arms spontaneously, weak withdrawals in her bilateral LEs. Eyes are spontaneously open. Intermittently wiggles toes to command. A/P Problem List: (1) Subarachnoid hemorrhage ICD Code: I60.9 Status: Acute (2) Atrial fibrillation ICD Code: I48.91 Status: Acute (3) Coagulopathy ICD Code: D68.9 Status: Acute (4) Respiratory failure ICD Code: J96.90 Status: Acute (5) Hypertension ICD Code: I10 Status: Acute Assessment and Plan Neuro/Psych: Spontaneous subarachnoid bleed with severe vasospasm Intracranial hypertension Malignant cerebral edema Seizures --CT head subarachnoid hemorrhage, MRI/A revealed no mass/source of bleeding --EEG 05/31 revealed moderate encephalopathy. No epileptiform activity q1h neuro checks Nimodipine 60 mg every 4 hours for 21 days Four-vessel angiogram 05/29 negative for aneurysm of vasospasm. No FMD - unable to access left vertebral artery off sedation, as long as ICPs are controlled --s/p 3% nacl. slowly normalizing Na, eventual goal Na 140 - 145. Today 137. start 2% at 30 ml per hour and reduce NS to 150 ml per hour --Keppra 1000 twice a day and Dilantin 100mg iv q12h. recheck phenytoin level 06/05 was 7.8. Recheck 06/10 --Dr. Mtz: neurosurgery --CT/CTA 05/31: no evidence of vasospasm. --Daily TCDs --Negative cerebral angio to confirm 06/06. - 06/10 severe vasospasm in the most right cerebral arteries. Status post intra- arterial verapamil treatment by IR 06/10. Repeat TCD - HHH therapy with a systolic blood pressure goal 160-180 Respiratory: Acute Hypoxic and hypercarbic respiratory failure --PRVC ventilation 14/500/1/5/55 Vent bundle --Duo nebs every 6 hours As needed bronchodilator therapy Head of bed elevated Wean FiO2 for goal SPO2 greater than 92% -CTA chest negative for PE. Positive bilateral lower lobe atelectasis and small to moderate bilateral pleural effusions Cardiovascular: Severe vasoplegia/Distributive Shock- resolved History of hypertension Dyslipidemia History fibrillation/chronic Off vasopressors. - severe vasospasm. Target systolic blood pressure 160-180. Remains spontaneously on this range without vasopressors Nimodipine 60 mg every 4 21 days - Pravachol -Home medications are losartan/HCTZ 100/12.5 daily and metoprolol 25 mg twice a day. Hold all BP meds -Pravachol 40 mg for vasospasm prevention -Echocardiogram 05/31 revealed EF 65%. Moderate TR. POLO 54 mm Hg Renal: Parker for strict I's and O's -- Strict I/Os Avoid hypovolemia FEN/GI: Hypernatremia - resolving Acute protein calorie malnutrition- mild Hypokalemia Maintenance fluids normal saline. Avoid hypovolemia tube feeds, Jevity 1.5, goal 50 cc an hour -Pepcid twice a day for GI prophylaxis -Colace/Senokot for bowel regimen ICU electrolyte protocol Daily BMP Heme/ID: Coagulopathy secondary to Xarelto anticoagulation use for atrial fibrillation- resolved. Leukocytosis Daily CBC Status post K Centra Does not meet transfusion triggers at this time --holding Eliquis given SAH. Endocrine: Hyperglycemia of critical illness -- SSI, every 6 hours, medium scale PEG site infection -Culture sent -Azactam, Levaquin, Vanc started 06/12 Prophylaxis: GI Prophylaxis Pepcid iv q12h. DVT Prophylaxis -- SCDs Holding pharmacologic DVT prophylaxis given intracranial hemorrhage, EVD in place. Start once cleared by Neurosurgery Lines: 05/27 right IJ triple lumen catheter removed 06/06. Currently PIV Parker EVD Overall impression: Slow progress s/p SAH. PEG tube site is cleaning up nicely. Mike Rizvi MD Jun 13, 2016 15:17
[2016-06-13] MEDS: ENOXAPARIN SODIUM 40 MG/0.4 ML SYRINGE SQ SCH (17:00)
[2016-06-13] MEDS: SODIUM CHLORIDE 23.4% INJ 188 MEQ in SODIUM CHLOR 0.9% 1000 ML INJ 1,000 ML IV SCH (18:53)
[2016-06-13] MEDS: PRAVASTATIN SOD 40 MG TAB PO SCH (20:27)
[2016-06-14] VITALS (15 sets, daily range): BP systolic 143–174; BP diastolic 63–81; PULSE 77–91; RESP 18–25; TEMP 95.7–98.2; O2SAT 95–100
[2016-06-14] MEDS: niMODipine 30 MG CAP PO SCH ×6 (00:41→20:45)
[2016-06-14] MEDS: SODIUM CHLOR 0.9% 1000 ML INJ 1,000 ML IV SCH ×3 (00:42→19:06)
[2016-06-14] MEDS: POTASSIUM CHLOR 20 MEQ PREMIX 100 ML IV PRN ×4 (01:41→08:20)
[2016-06-14] MEDS ORDERED: PHARMACY ORDERED LAB XX ONE (01:45)
[2016-06-14] MEDS: VANCOMYCIN INJ 1,500 MG in SODIUM CHLORID 0.9% 500 ML INJ 500 ML IV SCH (01:59)
[2016-06-14] MEDS: CHLORHEXIDINE GLUCONATE 2 % 1 PACK (2 CLOTHS) TOP SCH (04:00)
[2016-06-14] MEDS: AZTREONAM INJ 1,000 MG in SODIUM CHLORIDE 0.9% INJ 100 ML IV SCH (04:26)
[2016-06-14] MEDS: INSULIN NovoLIN REGULAR SUPPLEMENTAL SCALE SQ SCH ×4 (06:00→18:00)
[2016-06-14] MEDS: FOSPHENYTOIN SODIUM 100 MG PE/2 ML VIAL IV SCH ×2 (08:35→20:46)
[2016-06-14] MEDS: CARVEDILOL 6.25 MG TAB PO SCH ×2 (08:35→20:46)
[2016-06-14] MEDS: POLYETHYLENE GLYCOL 17 GM PKG PO SCH ×2 (08:35→20:46)
[2016-06-14] MEDS: levETIRAcetam 1000 MG INJ 100 ML IV SCH ×2 (08:35→20:46)
[2016-06-14] MEDS: FAMOTIDINE 20 MG/2 ML VIAL IV PUSH SCH ×2 (08:35→20:45)
[2016-06-14] MEDS: SODIUM CHLORIDE 0.9% FLUSH 5 ML FLUSH IV FLUSH SCH ×2 (08:35→20:47)
[2016-06-14] MEDS: DOCUSATE SODIUM 100 MG/10 ML UDC G-TUBE SCH ×2 (08:36→20:45)
[2016-06-14] MEDS: ARTIFICIAL TEARS OPTH SOLN 15 ML BTL EACH EYE SCH ×3 (08:36→18:00)
[2016-06-14] MEDS: SENNOSIDES SYRUP 8.8 MG/5 ML CUP PO/TUBE SCH ×2 (08:36→20:48)
[2016-06-14 08:53] LABS: AUTOMATED NEUTROPHIL # 7.7 TH/MM3 (1.8-7.7); BASOPHIL # 0.1 TH/MM3 (0-0.2); EOSINOPHIL # 0.1 TH/MM3 (0-0.4); HEMATOCRIT 26.8 % (35.0-46.0); HEMO FLAGS DIFF FINAL; LYMPHOCYTE # 1.2 TH/MM3 (1.0-4.8); MEAN CELL VOLUME 90.1 FL (80.0-100.0); MEAN CORPUSCULAR HEMOGLOBIN 30.3 PG (27.0-34.0); MEAN CORPUSCULAR HGB CONC 33.6 % (32.0-36.0); PLATELET COUNT 761 TH/MM3 (150-450); RED BLOOD COUNT 2.97 MIL/MM3 (4.00-5.30); RED CELL DISTRIBUTION WIDTH 13.7 % (11.6-17.2); WHITE BLOOD COUNT 9.8 TH/MM3 (4.0-11.0)
[2016-06-14] MEDS: LOSARTAN 25 MG TAB PO SCH (09:00)
[2016-06-14] MEDS: HYDROCHLOROTHIAZIDE 12.5 MG CAP PO SCH (09:00)
[2016-06-14] MEDS ORDERED: NOREPINEPHRINE 4 MG/4 ML AMP ONE (09:01)
--- NOTE | 2016-06-14 10:39 | HHI.NSPN ---
(Allison Mccullough) Note Status Status: Progress Note (Allison Mccullough) Interval History Interval History This is a 66 years old female was transferred to [facility] from [facility] for a subarachnoid hemorrhage. The patient and the was vacationing from [place]. They were on the train. Patient's states that around 2:00 this afternoon she suddenly developed severe headache and then vomited, and then had a syncopal episode. The train stopped. EMS was called. EMS personnel state that patient had altered status was able to follow commands and beginning without focal neurological deficit. No seizure activity. No tongue bitting. No tonic clonic movements. no incontinence of stool or urine. She was transported to [facility] in [place]. On the way to the hospital, she developed respiratory problem and patient was subsequently endotracheally intubated. She has history of atrial fibrillation and hypertension and was anticoagulated with Xarelto 20 mg daily. In addition she takes atorvastatin, HCTZ/ losartan, metoprolol. CT scan of the brain done at [facility] in [place] shows extensive subarachnoid and intraventricular hemorrhage with early obstructive hydrocephalus developing. She was placed given propofol and Cardene drip. Cardene drip and propofol was stopped secondary to hypotension on the way to the ED. Neurosurgical consultation was requested 05/28: intubated and sedated, s/p placement of ventriculostomy drain. CTA Brain neg for aneurysm, for cerebral angiography today, 05/29: seen this am during am round, withdrawing in the lower extremities, did not open eyes or follow commands for me, was reported to have followed with nursing. Cerebral angiography yesterday was neg for aneurysm. Then sergei Mario , patient having seizures, and posturing. ICPs has been 8-10, nursing reports EVD draining, CSF blood tinged. Transcranial doppler early this am negative for vasospasm 3/1: extends in uppers, withdraws in LEs 3/2: minimal withdrawals in the lower extremities, and extension. f/u CT Brain shows increased ventriculomegaly. CTA Head unremarkable for intracranial aneurysm. f/u EEG reports severe encephalopathy. ICPs at highest 8 overnight. 06/01: this morning slightly wiggled toes to command. ICPs below 5, EVD draining blood tinged CSF. 06/04: slightly opening eyes, EVD draining dark red CSF at 10 cm H20, ICPs at highest 8 overnight. 06/05: ICPs stable overnight, opening eyes. No reports of seizure like activities overnight. EVD continues to drain well. 06/06: cerebral angio completed yesterday, otherwise no neuro changes overnight. EVD draining, with stable ICPs. 06/07: opens eyes to pain stim, withdraws LE's, CSF dark red with stable ICPs 06/08: intubated, moderate eye opening, not tracking, not following commands. 06/11: eyes open, focuses, wiggled toes toe command. s/p intraarterial administration of verapamil for vasospasm 06/12: seen this morning during morning rounds, opens eyes, ICPs continues below 20. 06/13: mouthing words, moving upper extremities to commands, tracking more. 06/14: appears less awake and responsive today, EVD at 17 cm H20 with ICPs at highest 13. No recent TCDs. (Allison Mccullough) Labs, Micro, & Vital Signs Results Date Time Temp Pulse Resp B/P Pulse Ox O2 Delivery O2 Flow Rate FiO2 06/14/16 08:20 40 06/14/16 08:19 98 40 06/14/16 08:19 40 06/14/16 08:00 80 06/14/16 08:00 95.7 80 18 164/66 100 Automatic Cuff 06/14/16 06:00 81 06/14/16 04:11 98 40 06/14/16 04:00 96.4 83 19 99 169/70 06/14/16 04:00 40 06/14/16 04:00 83 06/14/16 02:00 77 06/14/16 00:50 98 40 06/14/16 00:00 40 06/14/16 00:00 96.8 83 19 161/77 98 169/70 06/14/16 00:00 79 06/13/16 22:00 92 06/13/16 20:00 97.2 92 20 98 171/67 06/13/16 20:00 40 06/13/16 20:00 92 06/13/16 19:40 99 40 06/13/16 18:00 89 06/13/16 16:33 99 40 06/13/16 16:00 40 06/13/16 16:00 96.1 84 18 148/78 98 06/13/16 16:00 84 06/13/16 14:00 86 06/13/16 12:00 96.3 81 20 182/80 99 06/13/16 12:00 40 06/13/16 12:00 79 06/13/16 11:50 99 40 06/14/16 07:00 Intake Total 5396 ml Output Total 8606 ml Balance -3210 ml Constitutional Vital Signs Date Time Temp Pulse Resp B/P Pulse Ox O2 Delivery O2 Flow Rate FiO2 06/14/16 08:20 40 06/14/16 08:19 98 40 06/14/16 08:19 40 06/14/16 08:00 80 06/14/16 08:00 95.7 80 18 164/66 100 Automatic Cuff 06/14/16 06:00 81 06/14/16 04:11 98 40 06/14/16 04:00 96.4 83 19 99 169/70 06/14/16 04:00 40 06/14/16 04:00 83 06/14/16 02:00 77 06/14/16 00:50 98 40 06/14/16 00:00 40 06/14/16 00:00 96.8 83 19 161/77 98 169/70 06/14/16 00:00 79 06/13/16 22:00 92 06/13/16 20:00 97.2 92 20 98 171/67 06/13/16 20:00 40 06/13/16 20:00 92 06/13/16 19:40 99 40 06/13/16 18:00 89 06/13/16 16:33 99 40 06/13/16 16:00 40 06/13/16 16:00 96.1 84 18 148/78 98 06/13/16 16:00 84 06/13/16 14:00 86 06/13/16 12:00 96.3 81 20 182/80 99 06/13/16 12:00 40 06/13/16 12:00 79 06/13/16 11:50 99 40 06/14/16 07:00 Intake Total 5396 ml Output Total 8606 ml Balance -3210 ml (Allison Mccullough) Review of Systems/Exam Exam Ms. Michaels did not open eyes, did not follow commands. Right ventriculostomy drain at 17 cm H20, ICPs 9, CSF gold. EVD site without sign of infection Cranial Nerves: Pupils 4 mm b/l reactive to 3 mm. Sensorimotor: very minimal response to LE to pain, no spontaneous movements, not following for testing Cerebellar: cannot assess due to her condition (Allison Mccullough) Exam Ms. Michaels did not open eyes, did not follow commands. Right ventriculostomy drain at 17 cm H20, ICPs 9, CSF gold. EVD site without sign of infection Cranial Nerves: Pupils 4 mm b/l reactive to 3 mm. Sensorimotor: very minimal response to LE to pain, no spontaneous movements, not following for testing Cerebellar: unable to assess due to her condition (Arcenio Mtz MD) Medications Current Medications Current Medications Medications (Trade) Dose Ordered Sig/Jerry Route PRN Reason Start Time Stop Time Status Last Admin Dose Admin Propofol (Diprivan 1000 Mg/100ml Inj) 100 ml @ 0 mls/hr TITRATE IV 05/27/16 19:45 05/28/16 23:16 IV Flush (NS Flush) 2 ml UNSCH PRN IV FLUSH FLUSH AFTER USING IV ACCESS 05/27/16 20:45 05/27/16 22:30 IV Flush (NS Flush) 2 ml BID IV FLUSH 05/27/16 21:00 06/14/16 08:35 Acetaminophen (Tylenol) 650 mg Q6H PRN PO PAIN 1-10 AND/OR FEVER >101F 05/27/16 20:45 06/07/16 17:14 Famotidine (Pepcid Inj) 20 mg Q12HR IV PUSH 05/27/16 21:00 06/14/16 08:35 Artificial Tears (Tears Naturale Opth Soln) 1 drop TID EACH EYE 05/28/16 09:00 06/14/16 12:49 Ondansetron HCl (Zofran Inj) 4 mg Q6H PRN IV NAUSEA OR VOMITING 05/27/16 20:45 Docusate Sodium (Colace Liq) 100 mg Q12H G-TUBE 05/27/16 20:45 06/10/16 08:44 Miscellaneous Information 1 Q361D XX 05/27/16 20:45 05/27/16 20:45 Chlorhexidine Gluconate (Chlorhexidine 2% Cloth) Taper DAILY@04 TOP 05/28/16 04:00 05/24/17 03:59 06/11/16 03:10 Chlorhexidine Gluconate 3 pack 3 pack UNSCH PRN TOP HYGIENIC CARE 05/27/16 20:45 Nicardipine HCl/ Sodium Chloride (Cardene Inj/NS 250 ml Inj) 260 ml @ 0 mls/hr TITRATE IV 05/27/16 21:00 06/09/16 15:00 Nimodipine (Nimotop) 60 mg Q4HR PO 05/28/16 00:00 06/14/16 12:00 Pravastatin Sodium 40 mg 40 mg HS PO 05/27/16 21:00 06/13/16 20:27 Levetriacetam 100 ml @ 400 mls/hr Q12HR IV 05/28/16 09:00 06/14/16 08:35 Potassium Chloride 100 ml @ 50 mls/hr Q2H PRN IV For Potassium 2.8 - 3.2 mEq/L 05/28/16 01:45 06/04/16 13:40 Potassium Chloride (KCl 20 Meq Premix Inj) 100 ml @ 50 mls/hr Q2H PRN IV For Potassium 2.8 - 3.2 mEq/L 05/28/16 01:45 06/14/16 08:20 Potassium Chloride 40 meq 40 meq UNSCH PRN PO/TUBE For Potassium 3.3 - 3.5 mEq/L 05/28/16 01:45 06/12/16 03:32 Potassium Chloride 100 ml @ 50 mls/hr Q2H PRN IV For Potassium 3.3 - 3.5 mEq/L 05/28/16 01:45 06/12/16 16:03 Magnesium Sulfate/ Sodium Chloride (Magnesium Sulfate Inj/NS Inj) 100 ml @ 50 mls/hr UNSCH PRN IV For Magnesium 0.9 - 1.1 mg/dL 05/28/16 01:45 Magnesium Oxide 800 mg 800 mg UNSCH PRN PO For Magnesium 1.2 - 1.6 mg/dL 05/28/16 01:45 Magnesium Sulfate/ Sodium Chloride (Magnesium Sulfate Inj/NS Inj) 100 ml @ 50 mls/hr UNSCH PRN IV For Magnesium 1.2 - 1.6 mg/dL 05/28/16 01:45 06/04/16 13:40 Potassium Phosphate 2000 mg 2,000 mg Q4H PRN PO For Phosphorus < 2.5 mg/dL 05/28/16 01:45 Sodium Phosphate/ Sodium Chloride (Sodium Phosphate Inj/NS 250 ml Inj) 250 ml @ 42 mls/hr UNSCH PRN IV For Phosphorus < 2.5 mg/dL 05/28/16 01:45 06/10/16 08:45 Potassium Chloride (KCl 40 Meq/30 ml Liq) 40 meq UNSCH PRN PO/TUBE SEE LABEL COMMENTS 05/28/16 01:45 06/03/16 05:31 Potassium Phosphate 2000 mg 2,000 mg UNSCH PRN PO/TUBE SEE LABEL COMMENTS 05/28/16 01:45 Potassium Phosphate/Sodium Chloride (Potassium Phosphate Inj/NS 250 ml Inj) 260 ml @ 42 mls/hr UNSCH PRN IV SEE LABEL COMMENTS 05/28/16 01:45 06/08/16 17:09 Dextrose (D50w (Vial) Inj) 25 ml UNSCH PRN IV PUSH HYPOGLYCEMIA-SEE COMMENTS 05/29/16 07:30 Insulin Human Regular (NovoLIN R SUPPLEMENTAL SCALE) 1 Q6HR SQ 05/29/16 12:00 06/11/16 12:06 Fosphenytoin Sodium (Cerebyx Inj) 100 mgpe Q12HR IV 06/02/16 09:00 06/14/16 08:35 Sennosides (Senna Liq) 8.8 mg BID PO/TUBE 06/07/16 09:00 06/10/16 08:45 Glycerin (Glycerin Adult Supp) 2 gm BID PRN RECTAL CONSTIPATION 06/07/16 09:00 Polyethylene Glycol (Miralax) 17 gm BID PO 06/08/16 21:00 06/10/16 08:45 Losartan Potassium (Cozaar) 25 mg DAILY PO 06/09/16 15:00 06/11/16 09:52 Hydrochlorothiazide (Microzide) 12.5 mg DAILY PO 06/10/16 09:00 06/11/16 09:52 Carvedilol 6.25 mg 6.25 mg Q12HR PO 06/09/16 21:00 06/14/16 08:35 Sodium Chloride 1,000 ml @ 150 mls/hr Q6H40M IV 06/10/16 20:00 06/14/16 08:36 Sodium Chloride/ Sodium Chloride (Sodium Chloride 23.4% Inj/NS 1000 ml Inj) 1,047 ml @ 30 mls/hr Q24H IV 06/11/16 17:00 06/13/16 18:53 Enoxaparin Sodium 40 mg 40 mg Q24H SQ 06/11/16 17:00 06/13/16 17:00 Levofloxacin/ Dextrose (Levaquin 750 Mg Premix Inj) 150 ml @ 100 mls/hr Q24H IV 06/12/16 13:00 06/14/16 12:49 (Allison Mccullough) Medical Decision Making MDM Remarks 66 y/o female with subarachnoid hemorrhage suspected intracranial aneurysm, placement of ventriculostomy drain CTA Head x 2 negative for aneurysm, Cerebral angiography neg for aneurysm, repeat cerebral angio 06/05/16 again neg for intracranial aneurysm TCD and CTA Head 06/10 with vasospasm, s/p intra-arterial administration of verapamil (Allison Mccullough) Plan Plan Remarks MS change, appears more lethargic today decrease EVD to 5 cm H20, may not be tolerating coming off EVD cont monitor ICPs and neuro checks assess for vasospams with TCD (Allison Mccullough) Attending Statement Continue neuro checks. TCD today. She is status post angiography and angioplasty. Continue CSF drainage via ventriculostomy Respiratory. Continue mechanical ventilation in assist contyrol mode of mechanical ventilation, pulmonary toilette, nasotracheal suction, and breathing treatments with nebulizers. Hypertension As needed Cardene to maintain systolic blood pressure less than 150. PT and OT eval Nutrition. tube feedings Renal. Continue to monitor closely urine output, BUN and creatinine Endocrine. Continue to Monitor serial Acu checks and SSI for tight control ID continue to monitor for signs of infection Continue Protonix for stress ulcer prophylaxis Continue Julio hose and SCD's for DVT prophylaxis The exam, history, and the medical decision-making described in the above note were completed with the assistance of the mid-level provider. I reviewed and agree with the findings presented. I attest that I had a [id number] encounter with the patient on the same day, and personally performed and documented my assessment and findings in the medical record. (Arcneio Mtz MD) Allison Mccullough Jun 14, 2016 10:39 Arcenio Mtz MD Jun 14, 2016 16:00
--- NOTE | 2016-06-14 10:40 | HHI.CCPN ---
Subjective Remarks/Hospital Course Hospital Course: 66 years old female was transferred to [facility] from [facility] in [place]. Patient and her was vacationing from [place]. They aware on the train while at around 2:00 patient started having severe headache and then vomited and then had a syncopal episode. Patient was transported to [facility] in [place]. On the way to the hospital, patient started having respiratory problem and patient was subsequently intubated. Patient has history of atrial fibrillation and hypertension and on Xarelto 20 mg daily, atorvastatin, HCTZ/ losartan, metoprolol. CT scan of the brain done at [facility] in [place] shows diffuse subarachnoid hemorrhage with intraventricular extension and early obstructive hydrocephalus developing. Dr. Mtz, neurosurgeon at [facility] was contacted and accepted transfer. 05/28: slight improvements, withdrawing to deep nailbed pressure. on cardene for hypertension. plan for angio today or tomorrow. 05/29: worsening neuro exam overnight. repeat head CT with effacement, slight compression of the brainstem. angiogram overnight without evidence of aneurysm or vasospasm. more hypotensive this morning on norepinephrine. flaccid x 4, no cough or gag. propofol turned off at 0600. 05/30: EEG with evidence of seizures. Keppra increased yesterday and Cerebryx loaded. this morning, on increasing vasopressor requirements. added phenylephrine on top of maximal levophed, vasopressin. echo with prelim hyperdynamic biventricular function. ICP stable. poor neurologic function. posturing in UEs. 05/31: vasopressors weaned overnight significantly, but remains on some support. repeat EEG improved with no evidence of ongoing ictal activity. ICP stable. this morning, no longer following commands in LEs, no longer posturing in upper extremities. discussed care with Dr. Mtz, will plan to go to CT/CTA brain to r /o vasospasm.06/01: CTA yesterday without evidence of vasospasm. TCDs negative today for vasospasm. still will intermittently follow commands in LEs, nothing in upper extremities. Na still very high, 160s. ICP well controlled. off vasopressors. 06/02: Na coming down slowly. TCDs pending for today. neuro exam stable. phenytoin level borderline high. 06/03: Tmax 100.4. Currently 99.1. Tolerating tube feeds at goal. Positive BM. Neuro exam remains stable. 3/6: Remains sedated, orally intubated on mechanical ventilation. Ventriculostomy in place. Cardene drip at 1 mg/h 06/05: Remains sedated, orally intubated on mechanical ventilation. Ventriculostomy in place. 06/06: AM laboratories currently pending. Afebrile. Noted cerebral angiogram without signs of vasospasm. 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 Dr. Mtz recommends per contains tracheostomy per RN. Tolerating tube feeding. 06/07: Tmax 99.5. Currently afebrile. Plan for cutaneous tracheostomy today. Ordered for PEG tube for a.m. Neurological unchanged with extension lower extremities flaccid upper extremities. 06/08: Tmax 100.8. This morning with acute episode acutely desaturated. Chest X-ray shows bilateral lower lobe infiltrates/pleural effusions. +600 cc past 24 hours. No bowel movement since 06/05. Status post PEG tube yesterday without complication. Subjective: 06/09: Afebrile. Desaturate yesterday requiring bronchoscopy. Thick white secretions noted throughout right in left lobes. Actually hard yellow secretions that coated the scope required multiple washings at end of ET tube probably causing desaturation. Currently down to 55%. Plan for tracheostomy today at 3 PM. 06/10 moderate vasospasm on TCD's on the right Lind[place]ard ratio 3.7, severe vasospasm on CTA 06/11: Eyes open spontaneously tracking intermittently following commands by wiggling toes. s/p intraarterial administration of verapamil for vasospasm 06/10. 06/12: Fresh pus draining from subcutaneous tissue at PEG insertion site on abdominal wall. Cultures sent, abx started. 06/13: Purulent PEG site drainage growing Staph and a GNR. Continue Vanc and PIP /KORTNEY. Site looks rug cleaner today. 06/13: Wound with MSSA and Serratia. Will narrow to levaquin. Leukocytosis has resolved. Less responsive today, will order TCDs. Objective Vital Signs Date Time Temp Pulse Resp B/P Pulse Ox O2 Delivery O2 Flow Rate FiO2 06/14/16 08:20 40 06/14/16 08:19 98 06/14/16 08:00 80 06/14/16 08:00 95.7 18 164/66 Automatic Cuff Intake and Output 06/13/16 06/13/16 06/14/16 08:00 16:00 00:00 Intake Total 2334 ml 1651 ml 1809 ml Output Total 3362 ml 2688 ml 3597 ml Balance -1028 ml -1037 ml -1788 ml Result Diagram: 06/14/16 0823 06/13/16 2350 Other Results Microbiology Date/Time Procedure Status Source Growth 06/12/16 11:00 Gram Stain - Final Complete Abscess Other 06/12/16 11:00 Wound Culture - Final Complete Staphylococcus Aureus Serratia Marcescens Imaging Last Impressions Transcranial Doppler Study Complete 06/08/16 0215 Signed Impressions: Service Date/Time: Wednesday, June 08, 2016 07:52 - CONCLUSION: There are no findings to indicate vasospasm. Lauro Lamb MD Liver Ultrasound 06/08/16 0000 Signed Impressions: Service Date/Time: Wednesday, June 08, 2016 14:00 - CONCLUSION: Ultrasound appearance of the liver and surrounding structures within normal limits. Lauro Logan MD Chest X-Ray 06/08/16 0000 Signed Impressions: Service Date/Time: Wednesday, June 08, 2016 16:02 - CONCLUSION: 1. No pneumothorax or other acute complication seen after bronchoscopy. 2. Mild consolidation and small effusions of both bases, stable on the left and slightly improved on the right. Lauro Logan MD CT Angiography 06/08/16 0000 Signed Impressions: Service Date/Time: Wednesday, June 08, 2016 11:54 - CONCLUSION: 1. Bilateral pleural effusions with compressive atelectasis. 2. No pulmonary embolus. Lauro Logan MD Abdomen/Pelvis CT 06/08/16 0000 Signed Impressions: Service Date/Time: Wednesday, June 08, 2016 11:54 - CONCLUSION: 1. There is mild distention of the colon but there are no findings to indicate bowel obstruction. A small volume of free fluid is present within the abdomen and pelvis. 2. Anasarca along with a presacral edema. 3. Small to moderate-sized bilateral pleural effusions with associated compressive atelectasis. Lauro Lamb MD Cerebral Arteriogram 06/05/16 0000 Signed Impressions: Service Date/Time: Sunday, June 05, 2016 00:00 - CONCLUSION: 1. No evidence of aneurysm 2. 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 I do not see a mass. Etiology for the hemorrhage is not apparent. Dillon Zaragoza MD FACR Brain MRI 06/01/16 0000 Signed Impressions: Service Date/Time: Wednesday, June 01, 2016 12:14 - CONCLUSION: 1. Intraventricular blood, negative for mass. Dillon Zaragoza MD FACR Head CTA 05/31/16 0000 Signed Impressions: Service Date/Time: May 10:44 - CONCLUSION: 1. No evidence of vasospasm Brandon Herrera MD Head CT 05/31/16 0000 Signed Impressions: Service Date/Time: May 10:44 - CONCLUSION: Extensive subarachnoid hemorrhage including significant hemorrhage in the foramen magnum similar to the 05/29/16 exam. The ventricles do appear to be larger today with significant intraventricular hemorrhage present. Ventriculostomy catheter in good position. David Spencer MD Objective Remarks GENERAL: 66 year old female. SKIN: Warm and dry. No rash HEAD: Status post right frontal daquan hole ventriculostomy EYES: PERRL. Around 2 mm bilaterally. No injection or drainage. NECK: Supple, trachea midline. Tracheostomy site intact without bleeding CARDIOVASCULAR: RRR. S1, S2 no sore. Without murmur. No JVD. RESPIRATORY: Breath sounds diminished in the bases bilaterally. Decreased air sounds anteriorly bilaterally. No wheezing. GASTROINTESTINAL: Abdomen soft, non-tender, nondistended. PEG tube site has no more foul draining pus. Positive bowel sounds. MUSCULOSKELETAL: With 1+ lower extremity edema Neuro: Uses both arms very weakly but spontaneously, weak withdrawals in her bilateral LEs. Eyes are spontaneously open. Does not track. A/P Problem List: (1) Subarachnoid hemorrhage ICD Code: I60.9 Status: Acute (2) Atrial fibrillation ICD Code: I48.91 Status: Acute (3) Coagulopathy ICD Code: D68.9 Status: Acute (4) Respiratory failure ICD Code: J96.90 Status: Acute (5) Hypertension ICD Code: I10 Status: Acute Assessment and Plan Neuro/Psych: Spontaneous subarachnoid bleed with severe vasospasm Intracranial hypertension Malignant cerebral edema Seizures --CT head subarachnoid hemorrhage, MRI/A revealed no mass/source of bleeding --EEG 05/31 revealed moderate encephalopathy. No epileptiform activity q1h neuro checks Nimodipine 60 mg every 4 hours for 21 days Four-vessel angiogram 05/29 negative for aneurysm of vasospasm. No FMD - unable to access left vertebral artery off sedation, as long as ICPs are controlled --s/p 3% nacl. slowly normalizing Na, eventual goal Na 140 - 145. Today 137. start 2% at 30 ml per hour and reduce NS to 150 ml per hour --Keppra 1000 twice a day and Dilantin 100mg iv q12h. recheck phenytoin level 06/05 was 7.8. Recheck 06/10 --Dr. Mtz: neurosurgery --CT/CTA 05/31: no evidence of vasospasm. --Daily TCDs --Negative cerebral angio to confirm 06/06. - 06/10 severe vasospasm in the most right cerebral arteries. Status post intra- arterial verapamil treatment by IR 06/10. Repeat TCD - HHH therapy with a systolic blood pressure goal 160-180 Restart leophed Respiratory: Acute Hypoxic and hypercarbic respiratory failure --PRVC ventilation 14/500/1/5/55 Vent bundle --Duo nebs every 6 hours As needed bronchodilator therapy Head of bed elevated Wean FiO2 for goal SPO2 greater than 92% -CTA chest negative for PE. Positive bilateral lower lobe atelectasis and small to moderate bilateral pleural effusions Cardiovascular: Severe vasoplegia/Distributive Shock- resolved History of hypertension Dyslipidemia History fibrillation/chronic Off vasopressors. - severe vasospasm. Target systolic blood pressure 160-180. Remains spontaneously on this range without vasopressors Nimodipine 60 mg every 4 21 days - Pravachol -Home medications are losartan/HCTZ 100/12.5 daily and metoprolol 25 mg twice a day. Hold all BP meds -Pravachol 40 mg for vasospasm prevention -Echocardiogram 05/31 revealed EF 65%. Moderate TR. Renal: Parker for strict I's and O's -- Strict I/Os Avoid hypovolemia FEN/GI: Hypernatremia - resolving Acute protein calorie malnutrition- mild Hypokalemia Maintenance fluids normal saline. Avoid hypovolemia tube feeds, Jevity 1.5, goal 50 cc an hour -Pepcid twice a day for GI prophylaxis -Colace/Senokot for bowel regimen ICU electrolyte protocol Daily BMP Heme/ID: Coagulopathy secondary to Xarelto anticoagulation use for atrial fibrillation- resolved. Leukocytosis Daily CBC Status post K Centra Does not meet transfusion triggers at this time --holding Eliquis given SAH. Endocrine: Hyperglycemia of critical illness -- SSI, every 6 hours, medium scale PEG site infection -Culture sent -Azactam, Levaquin, Vanc started 06/12 -> narrow to levaquin. Prophylaxis: GI Prophylaxis Pepcid iv q12h. DVT Prophylaxis -- SCDs Holding pharmacologic DVT prophylaxis given intracranial hemorrhage, EVD in place. Start once cleared by Neurosurgery Lines: 05/27 right IJ triple lumen catheter removed 06/06. Currently PIV Parker EVD Overall impression: Slow progress s/p SAH. PEG tube site is cleaning up nicely. Little change in neuro status. Mike Rizvi MD Jun 14, 2016 10:40
[2016-06-14 11:00] LABS: BICARBONATE 23.6 MEQ/L (21.0-32.0); POTASSIUM 3.6 MEQ/L (3.5-5.1)
[2016-06-14] MEDS: LEVOFLOXACIN 750 MG PREMIX INJ 150 ML IV SCH (12:49)
--- NOTE | 2016-06-14 13:10 | RADRPT ---
EXAM DATE/TIME: 06/14/2016 11:29 [place] COMPARISON: CTA BRAIN W 3D RECON, June 10, 2016, 10:50. US TRANSCRANIAL DOPPLER COMPLETE, June 10, 2016, 7:12. INDICATIONS : Subarachnoid hemorrhage. MEDICAL HISTORY : Hypercholesterolemia. Hypertension. Cardiovascular disease. Hydrocephalus. Atrial fibrillation. SURGICAL HISTORY : Right frontal [place] hole with ventriculostomy drain tube. ENCOUNTER: Initial ACUITY: 1 day PAIN SCORE: Nonresponsive. LOCATION: Bilateral cranial Current Exam: Jun 14, 2016 [place] Ratio: Right: 1.9 Left: 1.5 [place] Ratio: Right: 0.5 Left: 1.5 Previous Exam: Jun 10, 2016 [place] Ratio: Right: 3.7 Left: 1.6 [place] Ratio: Right: 1.0 Left: 1.5 FINDINGS: Examination performed at bedside. Real-time ultrasound with the assistance of color and spectral Dop pler was utilized to evaluate the intracerebral circulation. Time-averaged maximal velocities are ca lculated in cm/s. There has been improvement with partial normalization of the ratios on the right when compared to the study of 06/10/2016. There are increasing velocities in the MCA on the left with stable ratios. CONCLUSION: Overall there has been improvement better on the right than the left. Careful followup is suggested because of the elevated velocities home the left. Dillon Zaragoza MD FACR on June 14, 2016 at 13:02 Board Certified Radiologist. This report was verified electronically.
[2016-06-14] MEDS: ENOXAPARIN SODIUM 40 MG/0.4 ML SYRINGE SQ SCH (17:29)
[2016-06-14] MEDS: SODIUM CHLORIDE 23.4% INJ 188 MEQ in SODIUM CHLOR 0.9% 1000 ML INJ 1,000 ML IV SCH (19:06)
[2016-06-14] MEDS: PRAVASTATIN SOD 40 MG TAB PO SCH (20:46)
[2016-06-15] VITALS (18 sets, daily range): BP systolic 133–175; BP diastolic 60–78; PULSE 76–84; RESP 18–20; TEMP 97.3–98.4; O2SAT 96–100
[2016-06-15] MEDS: niMODipine 30 MG CAP PO SCH ×7 (00:31→23:07)
[2016-06-15] MEDS: CHLORHEXIDINE GLUCONATE 2 % 1 PACK (2 CLOTHS) TOP SCH (03:57)
[2016-06-15] MEDS: NOREPINEPHRINE INJ 4 MG in SODIUM CHLOR 0.9% 250 ML INJ 246 ML IV SCH ×2 (05:27→23:24)
[2016-06-15] MEDS: POTASSIUM CHLOR 20 MEQ PREMIX 100 ML IV PRN ×4 (05:31→11:40)
[2016-06-15 06:00] LABS: BICARBONATE 19.7 MEQ/L (21.0-32.0)
[2016-06-15] MEDS: INSULIN NovoLIN REGULAR SUPPLEMENTAL SCALE SQ SCH ×5 (06:00→23:31)
[2016-06-15] MEDS ORDERED: POTASSIUM CHLORIDE 20 MEQ PWD PACKET GT ONE (06:00)
[2016-06-15 06:07] LABS: POTASSIUM 2.5 MEQ/L (3.5-5.1)
[2016-06-15] MEDS: SODIUM CHLOR 0.9% 1000 ML INJ 1,000 ML IV SCH ×3 (06:21→15:34)
[2016-06-15 06:31] LABS: CALCIUM-PROTEIN CORRECTED 7.6 MG/DL (8.5-10.1)
[2016-06-15] MEDS: DOCUSATE SODIUM 100 MG/10 ML UDC G-TUBE SCH ×2 (08:45→20:42)
[2016-06-15] MEDS: SENNOSIDES SYRUP 8.8 MG/5 ML CUP PO/TUBE SCH ×2 (09:00→20:43)
[2016-06-15] MEDS: POLYETHYLENE GLYCOL 17 GM PKG PO SCH ×2 (09:00→20:43)
[2016-06-15] MEDS: ARTIFICIAL TEARS OPTH SOLN 15 ML BTL EACH EYE SCH ×3 (09:00→17:18)
[2016-06-15] MEDS: HYDROCHLOROTHIAZIDE 12.5 MG CAP PO SCH (09:38)
[2016-06-15] MEDS: LOSARTAN 25 MG TAB PO SCH (09:40)
[2016-06-15] MEDS: levETIRAcetam 1000 MG INJ 100 ML IV SCH ×2 (09:40→20:18)
[2016-06-15] MEDS: CARVEDILOL 6.25 MG TAB PO SCH ×3 (09:40→23:36)
[2016-06-15] MEDS: SODIUM CHLORIDE 0.9% FLUSH 5 ML FLUSH IV FLUSH SCH ×2 (09:40→20:19)
[2016-06-15] MEDS: FAMOTIDINE 20 MG/2 ML VIAL IV PUSH SCH ×2 (09:40→20:18)
[2016-06-15] MEDS: FOSPHENYTOIN SODIUM 100 MG PE/2 ML VIAL IV SCH ×2 (09:42→21:36)
--- NOTE | 2016-06-15 09:57 | HHI.NSPN ---
(Allison Mccullough) Note Status Status: Progress Note (Allison Mccullough) Interval History Interval History This is a 66 years old female was transferred to [facility] from [facility] for a subarachnoid hemorrhage. The patient and the was vacationing from [place]. They were on the train. Patient's states that around 2:00 this afternoon she suddenly developed severe headache and then vomited, and then had a syncopal episode. The train stopped. EMS was called. EMS personnel state that patient had altered status was able to follow commands and beginning without focal neurological deficit. No seizure activity. No tongue bitting. No tonic clonic movements. no incontinence of stool or urine. She was transported to [facility] in [place]. On the way to the hospital, she developed respiratory problem and patient was subsequently endotracheally intubated. She has history of atrial fibrillation and hypertension and was anticoagulated with Xarelto 20 mg daily. In addition she takes atorvastatin, HCTZ/ losartan, metoprolol. CT scan of the brain done at [facility] in [place] shows extensive subarachnoid and intraventricular hemorrhage with early obstructive hydrocephalus developing. She was placed given propofol and Cardene drip. Cardene drip and propofol was stopped secondary to hypotension on the way to the ED. Neurosurgical consultation was requested 05/28: intubated and sedated, s/p placement of ventriculostomy drain. CTA Brain neg for aneurysm, for cerebral angiography today, 05/29: seen this am during am round, withdrawing in the lower extremities, did not open eyes or follow commands for me, was reported to have followed with nursing. Cerebral angiography yesterday was neg for aneurysm. Then sergei Mario , patient having seizures, and posturing. ICPs has been 8-10, nursing reports EVD draining, CSF blood tinged. Transcranial doppler early this am negative for vasospasm 3/1: extends in uppers, withdraws in LEs 3/2: minimal withdrawals in the lower extremities, and extension. f/u CT Brain shows increased ventriculomegaly. CTA Head unremarkable for intracranial aneurysm. f/u EEG reports severe encephalopathy. ICPs at highest 8 overnight. 06/01: this morning slightly wiggled toes to command. ICPs below 5, EVD draining blood tinged CSF. 06/04: slightly opening eyes, EVD draining dark red CSF at 10 cm H20, ICPs at highest 8 overnight. 06/05: ICPs stable overnight, opening eyes. No reports of seizure like activities overnight. EVD continues to drain well. 06/06: cerebral angio completed yesterday, otherwise no neuro changes overnight. EVD draining, with stable ICPs. 06/07: opens eyes to pain stim, withdraws LE's, CSF dark red with stable ICPs 06/08: intubated, moderate eye opening, not tracking, not following commands. 06/11: eyes open, focuses, wiggled toes toe command. s/p intraarterial administration of verapamil for vasospasm 06/12: seen this morning during morning rounds, opens eyes, ICPs continues below 20. 06/13: mouthing words, moving upper extremities to commands, tracking more. 06/14: appears less awake and responsive today, EVD at 17 cm H20 with ICPs at highest 13. No recent TCDs. 06/15: More awake today, opens eyes and mouthing "I'm okay", reported she had followed command to right upper, and we true lower extremities to local stimuli , EVD @ 5 cmH20 (Allison Mccullough) Labs, Micro, & Vital Signs Results Date Time Temp Pulse Resp B/P Pulse Ox O2 Delivery O2 Flow Rate FiO2 06/15/16 08:00 98.1 81 18 100 138/61 06/15/16 08:00 81 06/15/16 08:00 40 06/15/16 07:56 100 40 06/15/16 07:56 40 06/15/16 06:00 84 06/15/16 04:33 98 40 06/15/16 04:00 40 06/15/16 04:00 84 06/15/16 04:00 98.4 84 19 149/65 98 152/71 06/15/16 02:00 82 06/15/16 00:43 100 40 06/15/16 00:00 98.2 76 19 133/60 100 145/65 06/15/16 00:00 40 06/15/16 00:00 76 06/14/16 22:00 81 06/14/16 20:06 100 40 06/14/16 20:00 40 06/14/16 20:00 91 06/14/16 20:00 98.2 91 19 168/66 100 143/63 06/14/16 17:15 40 06/14/16 16:37 99 40 06/14/16 16:00 88 06/14/16 16:00 97.2 88 25 174/71 100 06/14/16 12:00 87 06/14/16 12:00 96.6 80 23 154/81 98 06/14/16 11:18 95 40 06/15/16 07:00 Intake Total 5357 ml Output Total 4145.0 ml Balance 1212.0 ml Constitutional Vital Signs Date Time Temp Pulse Resp B/P Pulse Ox O2 Delivery O2 Flow Rate FiO2 06/15/16 08:00 98.1 81 18 100 138/61 06/15/16 08:00 81 06/15/16 08:00 40 06/15/16 07:56 100 40 06/15/16 07:56 40 06/15/16 06:00 84 06/15/16 04:33 98 40 06/15/16 04:00 40 06/15/16 04:00 84 06/15/16 04:00 98.4 84 19 149/65 98 152/71 06/15/16 02:00 82 06/15/16 00:43 100 40 06/15/16 00:00 98.2 76 19 133/60 100 145/65 06/15/16 00:00 40 06/15/16 00:00 76 06/14/16 22:00 81 06/14/16 20:06 100 40 06/14/16 20:00 40 06/14/16 20:00 91 06/14/16 20:00 98.2 91 19 168/66 100 143/63 06/14/16 17:15 40 06/14/16 16:37 99 40 06/14/16 16:00 88 06/14/16 16:00 97.2 88 25 174/71 100 06/14/16 12:00 87 06/14/16 12:00 96.6 80 23 154/81 98 06/14/16 11:18 95 40 06/15/16 07:00 Intake Total 5357 ml Output Total 4145.0 ml Balance 1212.0 ml (Allison Mccullough) Review of Systems/Exam Exam Ms. Michaels opened eyes, mouthed "im ok" Right ventriculostomy drain at 5 cm H20, CSF blood tinged, ICPs within normal limits. EVD site clean with dressing in place, no signs of infection. Cranial Nerves: Pupils 4 mm b/l reactive to 3 mm. Sensorimotor: did not follow commands for testing for me, nursing reports early this am she followed right upper to command, withdrew LE to local stimulation Cerebellar: unable to assess due to her condition Neck: tracheostomy (Allison Mccullough) Exam Ms. Michaels opened eyes, mouthed words. Follows commands Neck: tracheostomy in place Right ventriculostomy drain at 5 cm H20, CSF blood tinged, ICPs within normal limits. EVD site clean with dressing in place, no signs of infection. Cranial Nerves: Pupils 4 mm b/l reactive to 3 mm. Sensorimotor: follows commands Cerebellar: unable to assess due to her condition (Arcenio Mtz MD) Medications Current Medications Current Medications Medications (Trade) Dose Ordered Sig/Jerry Route PRN Reason Start Time Stop Time Status Last Admin Dose Admin Propofol (Diprivan 1000 Mg/100ml Inj) 100 ml @ 0 mls/hr TITRATE IV 05/27/16 19:45 05/28/16 23:16 IV Flush (NS Flush) 2 ml UNSCH PRN IV FLUSH FLUSH AFTER USING IV ACCESS 05/27/16 20:45 05/27/16 22:30 IV Flush (NS Flush) 2 ml BID IV FLUSH 05/27/16 21:00 06/15/16 09:40 Acetaminophen (Tylenol) 650 mg Q6H PRN PO PAIN 1-10 AND/OR FEVER >101F 05/27/16 20:45 06/07/16 17:14 Famotidine (Pepcid Inj) 20 mg Q12HR IV PUSH 05/27/16 21:00 06/15/16 09:40 Artificial Tears (Tears Naturale Opth Soln) 1 drop TID EACH EYE 05/28/16 09:00 06/15/16 09:00 Ondansetron HCl (Zofran Inj) 4 mg Q6H PRN IV NAUSEA OR VOMITING 05/27/16 20:45 Docusate Sodium (Colace Liq) 100 mg Q12H G-TUBE 05/27/16 20:45 06/14/16 20:45 Miscellaneous Information 1 Q361D XX 05/27/16 20:45 05/27/16 20:45 Chlorhexidine Gluconate (Chlorhexidine 2% Cloth) Taper DAILY@04 TOP 05/28/16 04:00 05/24/17 03:59 06/11/16 03:10 Chlorhexidine Gluconate 3 pack 3 pack UNSCH PRN TOP HYGIENIC CARE 05/27/16 20:45 Nicardipine HCl/ Sodium Chloride (Cardene Inj/NS 250 ml Inj) 260 ml @ 0 mls/hr TITRATE IV 05/27/16 21:00 06/09/16 15:00 Nimodipine (Nimotop) 60 mg Q4HR PO 05/28/16 00:00 06/15/16 09:37 Pravastatin Sodium 40 mg 40 mg HS PO 05/27/16 21:00 06/14/16 20:46 Levetriacetam 100 ml @ 400 mls/hr Q12HR IV 05/28/16 09:00 06/15/16 09:40 Potassium Chloride 100 ml @ 50 mls/hr Q2H PRN IV For Potassium 2.8 - 3.2 mEq/L 05/28/16 01:45 06/04/16 13:40 Potassium Chloride (KCl 20 Meq Premix Inj) 100 ml @ 50 mls/hr Q2H PRN IV For Potassium 2.8 - 3.2 mEq/L 05/28/16 01:45 06/15/16 09:38 Potassium Chloride 40 meq 40 meq UNSCH PRN PO/TUBE For Potassium 3.3 - 3.5 mEq/L 05/28/16 01:45 06/12/16 03:32 Potassium Chloride 100 ml @ 50 mls/hr Q2H PRN IV For Potassium 3.3 - 3.5 mEq/L 05/28/16 01:45 06/12/16 16:03 Magnesium Sulfate/ Sodium Chloride (Magnesium Sulfate Inj/NS Inj) 100 ml @ 50 mls/hr UNSCH PRN IV For Magnesium 0.9 - 1.1 mg/dL 05/28/16 01:45 Magnesium Oxide 800 mg 800 mg UNSCH PRN PO For Magnesium 1.2 - 1.6 mg/dL 05/28/16 01:45 Magnesium Sulfate/ Sodium Chloride (Magnesium Sulfate Inj/NS Inj) 100 ml @ 50 mls/hr UNSCH PRN IV For Magnesium 1.2 - 1.6 mg/dL 05/28/16 01:45 06/04/16 13:40 Potassium Phosphate 2000 mg 2,000 mg Q4H PRN PO For Phosphorus < 2.5 mg/dL 05/28/16 01:45 Sodium Phosphate/ Sodium Chloride (Sodium Phosphate Inj/NS 250 ml Inj) 250 ml @ 42 mls/hr UNSCH PRN IV For Phosphorus < 2.5 mg/dL 05/28/16 01:45 06/10/16 08:45 Potassium Chloride (KCl 40 Meq/30 ml Liq) 40 meq UNSCH PRN PO/TUBE SEE LABEL COMMENTS 05/28/16 01:45 06/03/16 05:31 Potassium Phosphate 2000 mg 2,000 mg UNSCH PRN PO/TUBE SEE LABEL COMMENTS 05/28/16 01:45 Potassium Phosphate/Sodium Chloride (Potassium Phosphate Inj/NS 250 ml Inj) 260 ml @ 42 mls/hr UNSCH PRN IV SEE LABEL COMMENTS 05/28/16 01:45 06/08/16 17:09 Dextrose (D50w (Vial) Inj) 25 ml UNSCH PRN IV PUSH HYPOGLYCEMIA-SEE COMMENTS 05/29/16 07:30 Insulin Human Regular (NovoLIN R SUPPLEMENTAL SCALE) 1 Q6HR SQ 05/29/16 12:00 06/15/16 00:00 Fosphenytoin Sodium (Cerebyx Inj) 100 mgpe Q12HR IV 06/02/16 09:00 06/15/16 09:42 Sennosides (Senna Liq) 8.8 mg BID PO/TUBE 06/07/16 09:00 06/14/16 20:48 Glycerin (Glycerin Adult Supp) 2 gm BID PRN RECTAL CONSTIPATION 06/07/16 09:00 Polyethylene Glycol (Miralax) 17 gm BID PO 06/08/16 21:00 06/14/16 20:46 Losartan Potassium (Cozaar) 25 mg DAILY PO 06/09/16 15:00 06/15/16 09:40 Hydrochlorothiazide (Microzide) 12.5 mg DAILY PO 06/10/16 09:00 06/15/16 09:38 Carvedilol 6.25 mg 6.25 mg Q12HR PO 06/09/16 21:00 06/15/16 09:40 Sodium Chloride 1,000 ml @ 150 mls/hr Q6H40M IV 06/10/16 20:00 06/15/16 08:20 Sodium Chloride/ Sodium Chloride (Sodium Chloride 23.4% Inj/NS 1000 ml Inj) 1,047 ml @ 30 mls/hr Q24H IV 06/11/16 17:00 06/14/16 19:06 Enoxaparin Sodium 40 mg 40 mg Q24H SQ 06/11/16 17:00 06/14/16 17:29 Levofloxacin/ Dextrose 150 ml @ 100 mls/hr Q24H IV 06/12/16 13:00 06/14/16 12:49 Norepinephrine Bitartrate/Sodium Chloride (Levophed Inj/NS 250 ml Inj) 250 ml @ 0 mls/hr TITRATE IV 06/14/16 23:15 06/15/16 05:27 (Allison Mccullough) Medical Decision Making MDM Remarks 66 y/o female with subarachnoid hemorrhage suspected intracranial aneurysm, placement of ventriculostomy drain CTA Head x 2 negative for aneurysm, Cerebral angiography neg for aneurysm, repeat cerebral angio 06/05/16 again neg for intracranial aneurysm TCD and CTA Head 06/10 with vasospasm, s/p intra-arterial administration of verapamil (Allison Mccullough) Plan Plan Remarks mental status improved today cont CSF draining at of 5 cm H20, will reattempt weaning off ventriculostomy drain early next week (Allison Mccullough) Attending Statement Continue neuro checks. Follow TCD. Continue CSF drainage via ventriculostomy Respiratory. Continue mechanical ventilation in assist contyrol mode of mechanical ventilation, pulmonary toilette, nasotracheal suction, and breathing treatments with nebulizers. Hypertension As needed Cardene to maintain systolic blood pressure less than 150. PT and OT eval Nutrition. tube feedings Renal. Continue to monitor closely urine output, BUN and creatinine Endocrine. Continue to Monitor serial Acu checks and SSI for tight control ID continue to monitor for signs of infection Continue Protonix for stress ulcer prophylaxis Continue Julio hose and SCD's for DVT prophylaxis The exam, history, and the medical decision-making described in the above note were completed with the assistance of the mid-level provider. I reviewed and agree with the findings presented. I attest that I had a [id number] encounter with the patient on the same day, and personally performed and documented my assessment and findings in the medical record. (Arcenio Mtz MD) Allison Mccullough Jun 15, 2016 09:57 Arcenio Mtz MD Jun 16, 2016 22:43
[2016-06-15] MEDS: LEVOFLOXACIN 750 MG PREMIX INJ 150 ML IV SCH (12:23)
--- NOTE | 2016-06-15 13:55 | HHI.CCPN ---
Subjective Remarks/Hospital Course Hospital Course: 66 years old female was transferred to [facility] from [facility] in [place]. Patient and her was vacationing from [place]. They aware on the train while at around 2:00 patient started having severe headache and then vomited and then had a syncopal episode. Patient was transported to [facility] in [place]. On the way to the hospital, patient started having respiratory problem and patient was subsequently intubated. Patient has history of atrial fibrillation and hypertension and on Xarelto 20 mg daily, atorvastatin, HCTZ/ losartan, metoprolol. CT scan of the brain done at [facility] in [place] shows diffuse subarachnoid hemorrhage with intraventricular extension and early obstructive hydrocephalus developing. Dr. Mtz, neurosurgeon at [place] was contacted and accepted transfer. 05/28: slight improvements, withdrawing to deep nailbed pressure. on cardene for hypertension. plan for angio today or tomorrow. 05/29: worsening neuro exam overnight. repeat head CT with effacement, slight compression of the brainstem. angiogram overnight without evidence of aneurysm or vasospasm. more hypotensive this morning on norepinephrine. flaccid x 4, no cough or gag. propofol turned off at 0600. 05/30: EEG with evidence of seizures. Keppra increased yesterday and Cerebryx loaded. this morning, on increasing vasopressor requirements. added phenylephrine on top of maximal levophed, vasopressin. echo with prelim hyperdynamic biventricular function. ICP stable. poor neurologic function. posturing in UEs. 05/31: vasopressors weaned overnight significantly, but remains on some support. repeat EEG improved with no evidence of ongoing ictal activity. ICP stable. this morning, no longer following commands in LEs, no longer posturing in upper extremities. discussed care with Dr. Mtz, will plan to go to CT/CTA brain to r /o vasospasm.06/01: CTA yesterday without evidence of vasospasm. TCDs negative today for vasospasm. still will intermittently follow commands in LEs, nothing in upper extremities. Na still very high, 160s. ICP well controlled. off vasopressors. 06/02: Na coming down slowly. TCDs pending for today. neuro exam stable. phenytoin level borderline high. 06/03: Tmax 100.4. Currently 99.1. Tolerating tube feeds at goal. Positive BM. Neuro exam remains stable. 3/6: Remains sedated, orally intubated on mechanical ventilation. Ventriculostomy in place. Cardene drip at 1 mg/h 06/05: Remains sedated, orally intubated on mechanical ventilation. Ventriculostomy in place. 06/06: AM laboratories currently pending. Afebrile. Noted cerebral angiogram without signs of vasospasm. 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 Dr. Mtz recommends per contains tracheostomy per RN. Tolerating tube feeding. 06/07: Tmax 99.5. Currently afebrile. Plan for cutaneous tracheostomy today. Ordered for PEG tube for a.m. Neurological unchanged with extension lower extremities flaccid upper extremities. 06/08: Tmax 100.8. This morning with acute episode acutely desaturated. Chest X-ray shows bilateral lower lobe infiltrates/pleural effusions. +600 cc past 24 hours. No bowel movement since 06/05. Status post PEG tube yesterday without complication. Subjective: 06/09: Afebrile. Desaturate yesterday requiring bronchoscopy. Thick white secretions noted throughout right in left lobes. Actually hard yellow secretions that coated the scope required multiple washings at end of ET tube probably causing desaturation. Currently down to 55%. Plan for tracheostomy today at 3 PM. 06/10 moderate vasospasm on TCD's on the right Lindegaard ratio 3.7, severe vasospasm on CTA 06/11: Eyes open spontaneously tracking intermittently following commands by wiggling toes. s/p intraarterial administration of verapamil for vasospasm 06/10. 06/12: Fresh pus draining from subcutaneous tissue at PEG insertion site on abdominal wall. Cultures sent, abx started. 06/13: Purulent PEG site drainage growing Staph and a GNR. Continue Vanc and PIP /KORTNEY. Site looks sleeping room cleaner today. 06/14: Wound with MSSA and Serratia. Will narrow to levaquin. Leukocytosis has resolved. Less responsive today, will order TCDs. 06/15: Diuresis now, review specific gravity. May be DI. Objective Vital Signs Date Time Temp Pulse Resp B/P Pulse Ox O2 Delivery O2 Flow Rate FiO2 06/15/16 12:00 40 06/15/16 12:00 97.3 77 20 99 163/71 06/15/16 09:35 T-piece 6.00 Intake and Output 06/14/16 06/14/16 06/15/16 08:00 16:00 00:00 Intake Total 1936 ml 2045 ml 1565 ml Output Total 2321 ml 2658.0 ml 1045 ml Balance -385 ml -613.0 ml 520 ml Result Diagram: 06/14/16 0823 06/15/16 0425 Imaging Last Impressions Transcranial Doppler Study Complete 06/08/16 0215 Signed Impressions: Service Date/Time: Wednesday, June 08, 2016 07:52 - CONCLUSION: There are no findings to indicate vasospasm. Lauro Lamb MD Liver Ultrasound 06/08/16 Signed Impressions: Service Date/Time: Wednesday, June 08, 2016 14:00 - CONCLUSION: Ultrasound appearance of the liver and surrounding structures within normal limits. Lauro Logan MD Chest X-Ray 06/08/16 Signed Impressions: Service Date/Time: Wednesday, June 08, 2016 16:02 - CONCLUSION: 1. No pneumothorax or other acute complication seen after bronchoscopy. 2. Mild consolidation and small effusions of both bases, stable on the left and slightly improved on the right. Lauro Logan MD CT Angiography 06/08/16 Signed Impressions: Service Date/Time: Wednesday, June 08, 2016 11:54 - CONCLUSION: 1. Bilateral pleural effusions with compressive atelectasis. 2. No pulmonary embolus. Lauro Logan MD Abdomen/Pelvis CT 06/08/16 Signed Impressions: Service Date/Time: Wednesday, June 08, 2016 11:54 - CONCLUSION: 1. There is mild distention of the colon but there are no findings to indicate bowel obstruction. A small volume of free fluid is present within the abdomen and pelvis. 2. Anasarca along with a presacral edema. 3. Small to moderate-sized bilateral pleural effusions with associated compressive atelectasis. Lauro Lamb MD Cerebral Arteriogram 06/05/16 0000 Signed Impressions: Service Date/Time: Sunday, June 05, 2016 00:00 - CONCLUSION: 1. No evidence of aneurysm 2. Fibromuscular dysplasia involving the cervical internal carotid arteries bilaterally Brandon Herrera MD Cervical Spine MRI 3/3/17 0000 Signed Impressions: Service Date/Time: Wednesday, June 01, 2016 12:14 - CONCLUSION: Large amount of blood in the subarachnoid space. I do not see a mass. Etiology for the hemorrhage is not apparent. Dillon Zaragoza MD FACR Brain MRI 06/01/16 0000 Signed Impressions: Service Date/Time: Wednesday, June 01, 2016 12:14 - CONCLUSION: 1. Intraventricular blood, negative for mass. Dillon Zaragoza MD FACR Head CTA 05/31/16 0000 Signed Impressions: Service Date/Time: May 10:44 - CONCLUSION: 1. No evidence of vasospasm Brandon Herrera MD Head CT 05/31/16 0000 Signed Impressions: Service Date/Time: May 10:44 - CONCLUSION: Extensive subarachnoid hemorrhage including significant hemorrhage in the foramen magnum similar to the 05/29/16 exam. The ventricles do appear to be larger today with significant intraventricular hemorrhage present. Ventriculostomy catheter in good position. David Spencer MD Objective Remarks GENERAL: 66 year old female. SKIN: Warm and dry. No rash HEAD: Status post right frontal daquan hole ventriculostomy EYES: PERRL. Around 2 mm bilaterally. No injection or drainage. NECK: Supple, trachea midline. Tracheostomy site intact without bleeding CARDIOVASCULAR: RRR. S1, S2 no sore. Without murmur. No JVD. RESPIRATORY: Breath sounds diminished in the bases bilaterally. Acceptable excursions. No wheezing. GASTROINTESTINAL: Abdomen soft, non-tender, nondistended. PEG tube site has no more foul drainage. Positive bowel sounds. MUSCULOSKELETAL: With 1+ lower extremity edema Neuro: Uses both arms very weakly but spontaneously, weak withdrawals in her bilateral LEs. Eyes are spontaneously open. Does not track. A/P Problem List: (1) Subarachnoid hemorrhage ICD Code: I60.9 Status: Acute (2) Atrial fibrillation ICD Code: I48.91 Status: Acute (3) Coagulopathy ICD Code: D68.9 Status: Acute (4) Respiratory failure ICD Code: J96.90 Status: Acute (5) Hypertension ICD Code: I10 Status: Acute Assessment and Plan Neuro/Psych: Spontaneous subarachnoid bleed with severe vasospasm Intracranial hypertension Malignant cerebral edema Seizures --CT head subarachnoid hemorrhage, MRI/A revealed no mass/source of bleeding --EEG 05/31 revealed moderate encephalopathy. No epileptiform activity q1h neuro checks Nimodipine 60 mg every 4 hours for 21 days Four-vessel angiogram 05/29 negative for aneurysm of vasospasm. No FMD - unable to access left vertebral artery off sedation, as long as ICPs are controlled --s/p 3% nacl. slowly normalizing Na, eventual goal Na 140 - 145. Today 137. start 2% at 30 ml per hour and reduce NS to 150 ml per hour --Keppra 1000 twice a day and Dilantin 100mg iv q12h. recheck phenytoin level 06/05 was 7.8. Recheck 06/10 --Dr. Mtz: neurosurgery --CT/CTA 05/31: no evidence of vasospasm. --Daily TCDs --Negative cerebral angio to confirm 06/06. - 06/10 severe vasospasm in the most right cerebral arteries. Status post intra- arterial verapamil treatment by IR 06/10. Repeat TCD - HHH therapy with a systolic blood pressure goal 160-180 Restart leophed Respiratory: Acute Hypoxic and hypercarbic respiratory failure --PRVC ventilation 14/500/1/5/55 Vent bundle --Duo nebs every 6 hours As needed bronchodilator therapy Head of bed elevated Wean FiO2 for goal SPO2 greater than 92% -CTA chest negative for PE. Positive bilateral lower lobe atelectasis and small to moderate bilateral pleural effusions Cardiovascular: Severe vasoplegia/Distributive Shock- resolved History of hypertension Dyslipidemia History fibrillation/chronic Off vasopressors. - severe vasospasm. Target systolic blood pressure 160-180. Remains spontaneously on this range without vasopressors Nimodipine 60 mg every 4 21 days - Pravachol -Home medications are losartan/HCTZ 100/12.5 daily and metoprolol 25 mg twice a day. Hold all BP meds -Pravachol 40 mg for vasospasm prevention -Echocardiogram 05/31 revealed EF 65%. Moderate TR. Renal: Parker for strict I's and O's -- Strict I/Os Avoid hypovolemia FEN/GI: Hypernatremia - resolving Acute protein calorie malnutrition- mild Hypokalemia Maintenance fluids normal saline. Avoid hypovolemia tube feeds, Jevity 1.5, goal 50 cc an hour -Pepcid twice a day for GI prophylaxis -Colace/Senokot for bowel regimen ICU electrolyte protocol Daily BMP Heme/ID: Coagulopathy secondary to Xarelto anticoagulation use for atrial fibrillation- resolved. Leukocytosis Daily CBC Status post K Centra Does not meet transfusion triggers at this time --holding Eliquis given SAH. Endocrine: Hyperglycemia of critical illness -- SSI, every 6 hours, medium scale PEG site infection -Culture sent -Azactam, Levaquin, Vanc started 06/12 -> narrow to levaquin. Prophylaxis: GI Prophylaxis Pepcid iv q12h. DVT Prophylaxis -- SCDs Holding pharmacologic DVT prophylaxis given intracranial hemorrhage, EVD in place. Start once cleared by Neurosurgery Lines: 05/27 right IJ triple lumen catheter removed 06/06. Currently PIV Parker EVD Overall impression: Slow progress s/p SAH. PEG tube site is cleaning up nicely. Little change in neuro status. Spontaneous diuresis may be DI. Mike Rizvi MD Jun 15, 2016 13:55
[2016-06-15] MEDS: ENOXAPARIN SODIUM 40 MG/0.4 ML SYRINGE SQ SCH (17:18)
[2016-06-15] MEDS: SODIUM CHLORIDE 23.4% INJ 188 MEQ in SODIUM CHLOR 0.9% 1000 ML INJ 1,000 ML IV SCH (18:00)
[2016-06-15] MEDS: PRAVASTATIN SOD 40 MG TAB PO SCH (20:18)
[2016-06-16] VITALS (14 sets, daily range): BP systolic 138–184; BP diastolic 62–82; PULSE 77–92; RESP 10–20; TEMP 97.5–98.6; O2SAT 93–99
[2016-06-16] MEDS: SODIUM CHLOR 0.9% 1000 ML INJ 1,000 ML IV SCH ×3 (02:18→20:12)
[2016-06-16] MEDS: niMODipine 30 MG CAP PO SCH ×5 (03:23→20:10)
[2016-06-16 04:17] LABS: BICARBONATE 27.2 MEQ/L (21.0-32.0); MAGNESIUM 1.8 MG/DL (1.5-2.5); POTASSIUM 3.4 MEQ/L (3.5-5.1)
[2016-06-16] MEDS: CHLORHEXIDINE GLUCONATE 2 % 1 PACK (2 CLOTHS) TOP SCH (04:23)
[2016-06-16] MEDS: INSULIN NovoLIN REGULAR SUPPLEMENTAL SCALE SQ SCH ×3 (05:46→18:00)
[2016-06-16] MEDS: POLYETHYLENE GLYCOL 17 GM PKG PO SCH ×2 (08:43→20:11)
[2016-06-16] MEDS: SENNOSIDES SYRUP 8.8 MG/5 ML CUP PO/TUBE SCH ×3 (08:43→20:11)
[2016-06-16] MEDS: ARTIFICIAL TEARS OPTH SOLN 15 ML BTL EACH EYE SCH ×3 (09:00→17:09)
[2016-06-16] MEDS: SODIUM CHLORIDE 0.9% FLUSH 5 ML FLUSH IV FLUSH SCH ×2 (09:18→20:11)
[2016-06-16] MEDS: LOSARTAN 25 MG TAB PO SCH (09:19)
[2016-06-16] MEDS: FOSPHENYTOIN SODIUM 100 MG PE/2 ML VIAL IV SCH ×2 (09:19→20:10)
[2016-06-16] MEDS: FAMOTIDINE 20 MG/2 ML VIAL IV PUSH SCH ×2 (09:19→20:10)
[2016-06-16] MEDS: CARVEDILOL 6.25 MG TAB PO SCH (09:19)
[2016-06-16] MEDS: HYDROCHLOROTHIAZIDE 12.5 MG CAP PO SCH (09:19)
[2016-06-16] MEDS: levETIRAcetam 1000 MG INJ 100 ML IV SCH ×2 (09:20→20:11)
[2016-06-16] MEDS: DOCUSATE SODIUM 100 MG/10 ML UDC G-TUBE SCH ×2 (09:20→20:12)
[2016-06-16] MEDS: POTASSIUM CHLOR 20 MEQ PREMIX 100 ML IV PRN (09:35)
--- NOTE | 2016-06-16 10:32 | HHI.CCPN ---
Subjective Remarks/Hospital Course Hospital Course: 66 years old female was transferred to [facility] from [facility] in [place]. Patient and her was vacationing from [place]. They aware on the train while at around 2:00 patient started having severe headache and then vomited and then had a syncopal episode. Patient was transported to [facility] in [place]. On the way to the hospital, patient started having respiratory problem and patient was subsequently intubated. Patient has history of atrial fibrillation and hypertension and on Xarelto 20 mg daily, atorvastatin, HCTZ/ losartan, metoprolol. CT scan of the brain done at [facility] in [place] shows diffuse subarachnoid hemorrhage with intraventricular extension and early obstructive hydrocephalus developing. Dr. Mtz, neurosurgeon at [place] was contacted and accepted transfer. 05/28: slight improvements, withdrawing to deep nailbed pressure. on cardene for hypertension. plan for angio today or tomorrow. 05/29: worsening neuro exam overnight. repeat head CT with effacement, slight compression of the brainstem. angiogram overnight without evidence of aneurysm or vasospasm. more hypotensive this morning on norepinephrine. flaccid x 4, no cough or gag. propofol turned off at 0600. 05/30: EEG with evidence of seizures. Keppra increased yesterday and Cerebryx loaded. this morning, on increasing vasopressor requirements. added phenylephrine on top of maximal levophed, vasopressin. echo with prelim hyperdynamic biventricular function. ICP stable. poor neurologic function. posturing in UEs. 05/31: vasopressors weaned overnight significantly, but remains on some support. repeat EEG improved with no evidence of ongoing ictal activity. ICP stable. this morning, no longer following commands in LEs, no longer posturing in upper extremities. discussed care with Dr. Mtz, will plan to go to CT/CTA brain to r /o vasospasm.06/01: CTA yesterday without evidence of vasospasm. TCDs negative today for vasospasm. still will intermittently follow commands in LEs, nothing in upper extremities. Na still very high, 160s. ICP well controlled. off vasopressors. 06/02: Na coming down slowly. TCDs pending for today. neuro exam stable. phenytoin level borderline high. 06/03: Tmax 100.4. Currently 99.1. Tolerating tube feeds at goal. Positive BM. Neuro exam remains stable. 3/6: Remains sedated, orally intubated on mechanical ventilation. Ventriculostomy in place. Cardene drip at 1 mg/h 06/05: Remains sedated, orally intubated on mechanical ventilation. Ventriculostomy in place. 06/06: AM laboratories currently pending. Afebrile. Noted cerebral angiogram without signs of vasospasm. 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 Dr. Mtz recommends per contains tracheostomy per RN. Tolerating tube feeding. 06/07: Tmax 99.5. Currently afebrile. Plan for cutaneous tracheostomy today. Ordered for PEG tube for a.m. Neurological unchanged with extension lower extremities flaccid upper extremities. 06/08: Tmax 100.8. This morning with acute episode acutely desaturated. Chest X-ray shows bilateral lower lobe infiltrates/pleural effusions. +600 cc past 24 hours. No bowel movement since 06/05. Status post PEG tube yesterday without complication. Subjective: 06/09: Afebrile. Desaturate yesterday requiring bronchoscopy. Thick white secretions noted throughout right in left lobes. Actually hard yellow secretions that coated the scope required multiple washings at end of ET tube probably causing desaturation. Currently down to 55%. Plan for tracheostomy today at 3 PM. 06/10 moderate vasospasm on TCD's on the right Lindegaard ratio 3.7, severe vasospasm on CTA 06/11: Eyes open spontaneously tracking intermittently following commands by wiggling toes. s/p intraarterial administration of verapamil for vasospasm 06/10. 06/12: Fresh pus draining from subcutaneous tissue at PEG insertion site on abdominal wall. Cultures sent, abx started. 06/13: Purulent PEG site drainage growing Staph and a GNR. Continue Vanc and PIP /KORTNEY. Site looks hide cleaner today. 06/14: Wound with MSSA and Serratia. Will narrow to levaquin. Leukocytosis has resolved. Less responsive today, will order TCDs. 06/15: Diuresis now, review specific gravity. May be DI. 06/16: No DI. Will hold ARB while we are trying to raise MAP. Objective Vital Signs Date Time Temp Pulse Resp B/P Pulse Ox O2 Delivery O2 Flow Rate FiO2 06/16/16 08:11 98 T-piece 28 06/16/16 08:00 98.4 87 18 178/71 06/15/16 21:55 6.00 Intake and Output 06/15/16 06/15/16 06/16/16 08:00 16:00 00:00 Intake Total 1747 ml 2437 ml 1731 ml Output Total 442.0 ml 3738 ml 3305 ml Balance 1305.0 ml -1301 ml -1574 ml Result Diagram: 06/14/16 0823 06/16/16 0326 Imaging Last Impressions Transcranial Doppler Study Complete 06/08/16 0215 Signed Impressions: Service Date/Time: Wednesday, June 08, 2016 07:52 - CONCLUSION: There are no findings to indicate vasospasm. Lauro Lamb MD Liver Ultrasound 06/08/16 Signed Impressions: Service Date/Time: Wednesday, June 08, 2016 14:00 - CONCLUSION: Ultrasound appearance of the liver and surrounding structures within normal limits. Lauro Logan MD Chest X-Ray 06/08/16 Signed Impressions: Service Date/Time: Wednesday, June 08, 2016 16:02 - CONCLUSION: 1. No pneumothorax or other acute complication seen after bronchoscopy. 2. Mild consolidation and small effusions of both bases, stable on the left and slightly improved on the right. Lauro Logan MD CT Angiography 06/08/16 Signed Impressions: Service Date/Time: Wednesday, June 08, 2016 11:54 - CONCLUSION: 1. Bilateral pleural effusions with compressive atelectasis. 2. No pulmonary embolus. Lauro Logan MD Abdomen/Pelvis CT 06/08/16 Signed Impressions: Service Date/Time: Wednesday, June 08, 2016 11:54 - CONCLUSION: 1. There is mild distention of the colon but there are no findings to indicate bowel obstruction. A small volume of free fluid is present within the abdomen and pelvis. 2. Anasarca along with a presacral edema. 3. Small to moderate-sized bilateral pleural effusions with associated compressive atelectasis. Lauro Lamb MD Cerebral Arteriogram 06/05/16 Signed Impressions: Service Date/Time: Sunday, June 05, 2016 00:00 - CONCLUSION: 1. No evidence of aneurysm 2. 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 I do not see a mass. Etiology for the hemorrhage is not apparent. Dillon Zaragoza MD FACR Brain MRI 06/01/16 0000 Signed Impressions: Service Date/Time: Wednesday, June 01, 2016 12:14 - CONCLUSION: 1. Intraventricular blood, negative for mass. Dillon Zaragoza MD FACR Head CTA 05/31/16 0000 Signed Impressions: Service Date/Time: May 10:44 - CONCLUSION: 1. No evidence of vasospasm Brandon Herrera MD Head CT 05/31/16 0000 Signed Impressions: Service Date/Time: May 10:44 - CONCLUSION: Extensive subarachnoid hemorrhage including significant hemorrhage in the foramen magnum similar to the 05/29/16 exam. The ventricles do appear to be larger today with significant intraventricular hemorrhage present. Ventriculostomy catheter in good position. David Spencer MD Objective Remarks GENERAL: 66 year old female. SKIN: Warm and dry. No rash HEAD: Status post right frontal daquan hole ventriculostomy EYES: PERRL. Around 2 mm bilaterally. No injection or drainage. NECK: Supple, trachea midline. Tracheostomy site intact without bleeding CARDIOVASCULAR: RRR. S1, S2 no sore. Without murmur. No JVD. RESPIRATORY: Breath sounds diminished in the bases bilaterally. Acceptable excursions. No wheezing. GASTROINTESTINAL: Abdomen soft, non-tender, nondistended. PEG tube site has no more foul drainage. Positive bowel sounds. MUSCULOSKELETAL: With 1+ lower extremity edema Neuro: Uses both arms spontaneously, weak withdrawals in her bilateral LEs. Eyes are spontaneously open. Does not track. More reactive since ventric lowered A/P Problem List: (1) Subarachnoid hemorrhage ICD Code: I60.9 Status: Acute (2) Atrial fibrillation ICD Code: I48.91 Status: Acute (3) Coagulopathy ICD Code: D68.9 Status: Acute (4) Respiratory failure ICD Code: J96.90 Status: Acute (5) Hypertension ICD Code: I10 Status: Acute Assessment and Plan Neuro/Psych: Spontaneous subarachnoid bleed with severe vasospasm Intracranial hypertension Malignant cerebral edema Seizures --CT head subarachnoid hemorrhage, MRI/A revealed no mass/source of bleeding --EEG 05/31 revealed moderate encephalopathy. No epileptiform activity q1h neuro checks Nimodipine 60 mg every 4 hours for 21 days Four-vessel angiogram 05/29 negative for aneurysm of vasospasm. No FMD - unable to access left vertebral artery off sedation, as long as ICPs are controlled --s/p 3% nacl. slowly normalizing Na, eventual goal Na 140 - 145. Today 137. start 2% at 30 ml per hour and reduce NS to 150 ml per hour --Keppra 1000 twice a day and Dilantin 100mg iv q12h. recheck phenytoin level 06/05 was 7.8. Recheck 06/10 --Dr. Mtz: neurosurgery --CT/CTA 05/31: no evidence of vasospasm. --Daily TCDs --Negative cerebral angio to confirm 06/06. - 06/10 severe vasospasm in the most right cerebral arteries. Status post intra- arterial verapamil treatment by IR 06/10. Repeat TCD - HHH therapy with a systolic blood pressure goal 160-180 - Restart leophed to keep MAP elevated Respiratory: Acute Hypoxic and hypercarbic respiratory failure --PRVC ventilation 14/500/1/5/55 Vent bundle --Duo nebs every 6 hours As needed bronchodilator therapy Head of bed elevated Wean FiO2 for goal SPO2 greater than 92% -CTA chest negative for PE. Positive bilateral lower lobe atelectasis and small to moderate bilateral pleural effusions Cardiovascular: Severe vasoplegia/Distributive Shock- resolved History of hypertension Dyslipidemia History fibrillation/chronic Off vasopressors. - severe vasospasm. Target systolic blood pressure 160-180. Remains spontaneously on this range without vasopressors Nimodipine 60 mg every 4 21 days - Pravachol -Home medications are losartan/HCTZ 100/12.5 daily and metoprolol 25 mg twice a day. Hold all BP meds -Pravachol 40 mg for vasospasm prevention -Echocardiogram 05/31 revealed EF 65%. Moderate TR. Renal: Parker for strict I's and O's -- Strict I/Os Avoid hypovolemia FEN/GI: Hypernatremia - resolving Acute protein calorie malnutrition- mild Hypokalemia Maintenance fluids normal saline. Avoid hypovolemia tube feeds, Jevity 1.5, goal 50 cc an hour -Pepcid twice a day for GI prophylaxis -Colace/Senokot for bowel regimen ICU electrolyte protocol Daily BMP Heme/ID: Coagulopathy secondary to Xarelto anticoagulation use for atrial fibrillation- resolved. Leukocytosis Daily CBC Status post K Centra Does not meet transfusion triggers at this time --holding Eliquis given SAH. Endocrine: Hyperglycemia of critical illness -- SSI, every 6 hours, medium scale PEG site infection -Culture sent -Azactam, Levaquin, Vanc started 06/12 -> narrow to levaquin. Prophylaxis: GI Prophylaxis Pepcid iv q12h. DVT Prophylaxis -- SCDs Holding pharmacologic DVT prophylaxis given intracranial hemorrhage, EVD in place. Start once cleared by Neurosurgery Lines: 05/27 right IJ triple lumen catheter removed 06/06. Currently PIV Parker EVD Overall impression: Slow progress s/p SAH. PEG tube site is cleaning up nicely. Moderate change in neuro status. Spontaneous diuresis not DI. Mike Rizvi MD Jun 16, 2016 10:31
[2016-06-16] MEDS: LEVOFLOXACIN 750 MG PREMIX INJ 150 ML IV SCH (13:01)
[2016-06-16] MEDS: SODIUM CHLORIDE 23.4% INJ 188 MEQ in SODIUM CHLOR 0.9% 1000 ML INJ 1,000 ML IV SCH (17:00)
[2016-06-16] MEDS: ENOXAPARIN SODIUM 40 MG/0.4 ML SYRINGE SQ SCH (17:09)
--- NOTE | 2016-06-16 19:03 | HHI.NSPN ---
Note Status Status: Progress Note Interval History Diagnosis SAH Interval History This is a 66 years old female was transferred to [facility] from [facility] for a subarachnoid hemorrhage. The patient and the was vacationing from [place]. They were on the train. Patient's states that around 2:00 this afternoon she suddenly developed severe headache and then vomited, and then had a syncopal episode. The train stopped. EMS was called. EMS personnel state that patient had altered status was able to follow commands and beginning without focal neurological deficit. No seizure activity. No tongue bitting. No tonic clonic movements. no incontinence of stool or urine. She was transported to [facility] in [place]. On the way to the hospital, she developed respiratory problem and patient was subsequently endotracheally intubated. She has history of atrial fibrillation and hypertension and was anticoagulated with Xarelto 20 mg daily. In addition she takes atorvastatin, HCTZ/ losartan, metoprolol. CT scan of the brain done at [facility] in [place] shows extensive subarachnoid and intraventricular hemorrhage with early obstructive hydrocephalus developing. She was placed given propofol and Cardene drip. Cardene drip and propofol was stopped secondary to hypotension on the way to the ED. Neurosurgical consultation was requested 05/28: intubated and sedated, s/p placement of ventriculostomy drain. CTA Brain neg for aneurysm, for cerebral angiography today, 05/29: seen this am during am round, withdrawing in the lower extremities, did not open eyes or follow commands for me, was reported to have followed with nursing. Cerebral angiography yesterday was neg for aneurysm. Then sergei Mario , patient having seizures, and posturing. ICPs has been 8-10, nursing reports EVD draining, CSF blood tinged. Transcranial doppler early this am negative for vasospasm 3/1: extends in uppers, withdraws in LEs 3/2: minimal withdrawals in the lower extremities, and extension. f/u CT Brain shows increased ventriculomegaly. CTA Head unremarkable for intracranial aneurysm. f/u EEG reports severe encephalopathy. ICPs at highest 8 overnight. 06/01: this morning slightly wiggled toes to command. ICPs below 5, EVD draining blood tinged CSF. 06/04: slightly opening eyes, EVD draining dark red CSF at 10 cm H20, ICPs at highest 8 overnight. 06/05: ICPs stable overnight, opening eyes. No reports of seizure like activities overnight. EVD continues to drain well. 06/06: cerebral angio completed yesterday, otherwise no neuro changes overnight. EVD draining, with stable ICPs. 06/07: opens eyes to pain stim, withdraws LE's, CSF dark red with stable ICPs 06/08: intubated, moderate eye opening, not tracking, not following commands. 06/09. Neurologically stable. Open eyes. Intermittently follow commands. Follow up TCD's 06/09. Stop following commands. TCD's showed severe vasospasm. CFor emergency CTA 06/16. She is more awake. Follows commands Labs, Micro, & Vital Signs Results Date Time Temp Pulse Resp B/P Pulse Ox O2 Delivery O2 Flow Rate FiO2 06/16/16 18:00 90 06/16/16 16:00 98.6 92 20 158/75 97 06/16/16 16:00 92 06/16/16 14:00 85 06/16/16 12:00 82 06/16/16 12:00 98.4 82 20 168/75 95 06/16/16 10:00 80 06/16/16 08:11 98 T-piece 28 06/16/16 08:00 98.4 87 18 178/71 97 06/16/16 08:00 87 06/16/16 08:00 35 06/16/16 06:00 80 06/16/16 04:00 97.9 80 19 150/82 96 06/16/16 04:00 35 06/16/16 04:00 80 06/16/16 02:00 77 06/16/16 00:00 78 06/16/16 00:00 35 06/16/16 00:00 97.5 78 10 138/62 96 06/15/16 22:00 79 06/15/16 21:55 97 T-piece 6.00 35 06/15/16 20:00 82 06/15/16 20:00 35 06/15/16 20:00 97.7 82 20 164/72 98 06/16/16 07:00 Intake Total 5710 ml Output Total 9928.0 ml Balance -4218.0 ml Constitutional Vital Signs Date Time Temp Pulse Resp B/P Pulse Ox O2 Delivery O2 Flow Rate FiO2 06/16/16 18:00 90 06/16/16 16:00 98.6 92 20 158/75 97 06/16/16 16:00 92 06/16/16 14:00 85 06/16/16 12:00 82 06/16/16 12:00 98.4 82 20 168/75 95 06/16/16 10:00 80 06/16/16 08:11 98 T-piece 28 06/16/16 08:00 98.4 87 18 178/71 97 06/16/16 08:00 87 06/16/16 08:00 35 06/16/16 06:00 80 06/16/16 04:00 97.9 80 19 150/82 96 06/16/16 04:00 35 06/16/16 04:00 80 06/16/16 02:00 77 06/16/16 00:00 78 06/16/16 00:00 35 06/16/16 00:00 97.5 78 10 138/62 96 06/15/16 22:00 79 06/15/16 21:55 97 T-piece 6.00 35 06/15/16 20:00 82 06/15/16 20:00 35 06/15/16 20:00 97.7 82 20 164/72 98 06/16/16 07:00 Intake Total 5710 ml Output Total 9928.0 ml Balance -4218.0 ml Review of Systems/Exam Exam Ms. Michaels opened eyes, mouthed words. Follows commands Neck: tracheostomy in place Right ventriculostomy drain at 5 cm H20, CSF blood tinged, ICPs within normal limits. EVD site clean with dressing in place, no signs of infection. Cranial Nerves: Pupils 4 mm b/l reactive to 3 mm. Sensorimotor: follows commands Cerebellar: unable to assess due to her condition Medications Current Medications Current Medications Nicardipine HCl 25 mg/Sodium Chloride 260 ml @ 0 mls/hr TITRATE IV ; Start 05/27 at 19:45; Stop 05/27/16 at 20:58; Status DC Propofol 100 ml @ 0 mls/hr TITRATE IV Last administered on 05/28/16t 23:16; Start 05/27/16 at 19:45 Sodium Chloride 1,000 ml @ 70 mls/hr [id number] IV Last administered on 20:07; Start 05/27/16 at 20:00; Stop 05/27/16 at 20:57; Status DC Prothrombin Complex Concent (Human) 4000 units/Syringe / Bag 0 ml @ 8 mls/min ONCE ONCE IV Last administered on 05/27/16 21:03; Start 05/27/16 at 20:45; Stop 05/27/16 at 20:46; Status DC Sodium Chloride (NS 1000 ml Inj) 1,000 ml @ 75 mls/hr [id number] IV Last administered on 06/09/16 06:33; Start 05/27/16 at 21:00; Stop 06/09/16 at 13:15 ; Status DC IV Flush (NS Flush) 2 ml UNSCH PRN IV FLUSH FLUSH AFTER USING IV ACCESS Last administered on 05/27/16 22:30; Start 05/27/16 at 20:45 IV Flush (NS Flush) 2 ml BID IV FLUSH Last administered on 06/16/16 20:11; Start 05/27/16 at 21:00 Acetaminophen (Tylenol) 650 mg Q6H PRN PO PAIN 1-10 AND/OR FEVER >101F Last administered on 06/07/16 17:14; Start 05/27/16 at 20:45 Morphine Sulfate (Morphine Inj) 2 mg Q2H PRN IV PAIN SCALE 6 TO 10; Start 05/27 at 20:45; Stop 05/29/16 at 13:33; Status DC Famotidine (Pepcid Inj) 20 mg Q12HR IV PUSH Last administered on 06/16/16 20: 10; Start 05/27/16 at 21:00 Artificial Tears (Tears Naturale Opth Soln) 1 drop TID EACH EYE Last administered on 06/16/16 17:09; Start 05/28/16 at 09:00 Ondansetron HCl (Zofran Inj) 4 mg Q6H PRN IV NAUSEA OR VOMITING; Start at 20:45 Metoclopramide HCl (Reglan Inj) 10 mg Q6H PRN IV NAUSEA OR VOMITING; Start at 20:45; Stop 05/29/16 at 13:33; Status DC Docusate Sodium (Colace Liq) 100 mg Q12H G-TUBE Last administered on 06/16/16 09:20; Start 05/27/16 at 20:45 Albuterol/ Ipratropium (Duoneb Neb) 1 ampule Q2HR NEB PRN INH WHEEZING Last administered on 06/11/16 21:35; Start 05/27/16 at 20:45 Miscellaneous Information 1 [id number] Last administered on 05/27/16 20:45; Start 05/27/16 at 20:45 Chlorhexidine Gluconate (Chlorhexidine 2% Cloth) 3 pack Taper DAILY@04 TOP Last administered on 06/16/16 04:23; Start 05/28/16 at 04:00; Stop 05/24/17 at 03:59 Chlorhexidine Gluconate 3 pack 3 pack UNSCH PRN TOP HYGIENIC CARE; Start at 20:45 Nicardipine HCl/ Sodium Chloride (Cardene Inj/NS 250 ml Inj) 260 ml @ 0 mls/hr TITRATE IV Last administered on 06/09/16 15:00; Start 05/27/16 at 21:00 Nimodipine (Nimotop) 60 mg Q4HR PO Last administered on 06/16/16 20:10; Start 05/28/16 at 00:00 Pravastatin Sodium (Pravachol) 40 mg HS PO Last administered on 06/16/16 20:10 ; Start 05/27/16 at 21:00 Hydralazine HCl 20 mg 20 mg STK-MED ONCE .ROUTE ; Start 05/27/16 at 20:54; Stop 05/27/16 at 20:55; Status DC Mannitol 50 ml @ As Directed STK-MED ONCE .ROUTE ; Start 05/27/16 at 21:07; Stop 05/27/16 at 21:08; Status DC Mannitol 50 ml @ As Directed STK-MED ONCE .ROUTE ; Start 05/27/16 at 21:12; Stop 05/27/16 at 21:13; Status DC Sodium Chloride 500 ml @ 20 mls/hr UNSCH IV Last administered on 05/29/16 23: 27; Start 05/27/16 at 21:30; Stop 06/01/16 at 11:28; Status DC Levetriacetam 100 ml @ 400 mls/hr BOLUS ONCE IV Last administered on 22:09; Start 05/27/16 at 21:30; Stop 05/27/16 at 21:44; Status DC Levetriacetam (Keppra 1000 Mg Inj) 100 ml @ 400 mls/hr Q12HR IV Last administered on 06/16/16 20:11; Start 05/28/16 at 09:00 Epinephrine HCl (EPINEPHrine (1:10,000) INJ) 1 mg STK-MED ONCE .ROUTE ; Start at 22:22; Stop 05/27/16 at 22:23; Status DC Lidocaine HCl (Xylocaine 2% Inj) 100 mg STK-MED ONCE .ROUTE ; Start 05/27/16 at 22:22; Stop 05/27/16 at 22:23; Status DC Atropine Sulfate 1 mg 1 mg STK-MED ONCE .ROUTE ; Start 05/27/16 at 22:22; Stop 05/27/16 at 22:23; Status DC Norepinephrine Bitartrate 250 ml @ As Directed STK-MED ONCE IV ; Start at 22:34; Stop 05/27/16 at 22:35; Status DC Norepinephrine Bitartrate (Levophed-Dextrose Drip) 250 ml @ 0 mls/hr TITRATE IV ; Start 05/27/16 at 22:45; Stop 05/28/16 at 02:04; Status DC Terbutaline Sulfate (Brethine Inj) 1 mg UNSCH PRN SQ For Extravasation; Start 05/27/16 at 22:45; Stop 06/01/16 at 11:28; Status DC Norepinephrine Bitartrate (Levophed Inj) 4 mg STK-MED ONCE .ROUTE ; Start at 22:46; Stop 05/27/16 at 22:47; Status DC Iohexol (Omnipaque 350 Inj) 100 ml STK-MED ONCE IV Last administered on 23:12; Start 05/27/16 at 23:12; Stop 05/27/16 at 23:13; Status DC Hydralazine HCl 20 mg 20 mg STAT ONCE IVS Last administered on 05/27/16 21:10 ; Start 05/28/16 at 01:00; Stop 05/28/16 at 01:03; Status DC Potassium Chloride 100 ml @ 50 mls/hr Q2H PRN IV For Potassium 2.8 - 3.2 mEq/ L Last administered on 06/04/16 13:40; Start 05/28/16 at 01:45 Potassium Chloride (KCl 20 Meq Premix Inj) 100 ml @ 50 mls/hr Q2H PRN IV For Potassium 2.8 - 3.2 mEq/L Last administered on 06/15/16 11:40; Start 05/28/16 at 01:45 Potassium Chloride 40 meq 40 meq UNSCH PRN PO/TUBE For Potassium 3.3 - 3.5 mEq/ L Last administered on 06/12/16 03:32; Start 05/28/16 at 01:45 Potassium Chloride 100 ml @ 25 mls/hr UNSCH PRN IV For Potassium 3.3 - 3.5 mEq /L Last administered on 05/30/16 18:33; Start 05/28/16 at 01:45; Stop 06/14/16 at 10:55; Status DC Potassium Chloride 100 ml @ 50 mls/hr Q2H PRN IV For Potassium 3.3 - 3.5 mEq/ L Last administered on 06/16/16 09:35; Start 05/28/16 at 01:45 Magnesium Sulfate/ Sodium Chloride (Magnesium Sulfate Inj/NS Inj) 100 ml @ 50 mls/hr UNSCH PRN IV For Magnesium 0.9 - 1.1 mg/dL; Start 05/28/16 at 01:45 Magnesium Oxide 800 mg 800 mg UNSCH PRN PO For Magnesium 1.2 - 1.6 mg/dL; Start 05/28/16 at 01:45 Magnesium Sulfate/ Sodium Chloride (Magnesium Sulfate Inj/NS Inj) 100 ml @ 50 mls/hr UNSCH PRN IV For Magnesium 1.2 - 1.6 mg/dL Last administered on 13:40; Start 05/28/16 at 01:45 Potassium Phosphate 2000 mg 2,000 mg Q4H PRN PO For Phosphorus < 2.5 mg/dL; Start 05/28/16 at 01:45 Sodium Phosphate/ Sodium Chloride (Sodium Phosphate Inj/NS 250 ml Inj) 250 ml @ 42 mls/hr UNSCH PRN IV For Phosphorus < 2.5 mg/dL Last administered on 08:45; Start 05/28/16 at 01:45 Potassium Chloride (KCl 40 Meq/30 ml Liq) 40 meq UNSCH PRN PO/TUBE SEE LABEL COMMENTS Last administered on 06/03/16 05:31; Start 05/28/16 at 01:45 Potassium Phosphate 2000 mg 2,000 mg UNSCH PRN PO/TUBE SEE LABEL COMMENTS; Start 05/28/16 at 01:45 Potassium Phosphate/Sodium Chloride (Potassium Phosphate Inj/NS 250 ml Inj) 260 ml @ 42 mls/hr UNSCH PRN IV SEE LABEL COMMENTS Last administered on 06/08/16 17:09; Start 05/28/16 at 01:45 Mannitol 80 gm 80 gm STAT ONCE IV Last administered on 05/27/16 21:10; Start 05/28/16 at 02:15; Stop 05/28/16 at 02:16; Status DC Norepinephrine Bitartrate (Levophed-Dextrose Drip) 250 ml @ 0 mls/hr TITRATE IV Last administered on 05/29/16 19:02; Start 05/28/16 at 02:15; Stop 05/29/16 at 19:45; Status DC Nicardipine HCl 25 mg 25 mg STK-MED ONCE .ROUTE ; Start 05/28/16 at 06:52; Stop 05/28/16 at 06:53; Status DC Sodium Chloride (NS 250 ml Inj) 250 ml @ As Directed STK-MED ONCE .ROUTE ; Start 05/28/16 at 06:52; Stop 05/28/16 at 06:53; Status DC Nicardipine HCl (Cardene Inj) 25 mg STK-MED ONCE .ROUTE ; Start 05/28/16 at 06: 55; Stop 05/28/16 at 06:56; Status DC Epinephrine HCl (EPINEPHrine (1:10,000) INJ) 1 mg STK-MED ONCE .ROUTE ; Start at 22:20; Stop 05/28/16 at 22:21; Status DC Lidocaine HCl (Xylocaine 2% Inj) 100 mg STK-MED ONCE .ROUTE ; Start 05/28/16 at 22:20; Stop 05/28/16 at 22:21; Status DC Atropine Sulfate (Atropine Inj) 1 mg STK-MED ONCE .ROUTE ; Start 05/28/16 at 22: 20; Stop 05/28/16 at 22:21; Status DC Verapamil HCl (Isoptin Inj) 10 mg STK-MED ONCE .ROUTE ; Start 05/28/16 at 23:45 ; Stop 05/28/16 at 23:46; Status DC Dextrose (D50w (Vial) Inj) 25 ml UNSCH PRN IV PUSH HYPOGLYCEMIA-SEE COMMENTS; Start 05/29/16 at 07:30 Insulin Human Regular (NovoLIN R SUPPLEMENTAL SCALE) 1 Q6HR SQ Last administered on 06/16/16 13:13; Start 05/29/16 at 12:00 Iodixanol 121 ml 121 ml STK-MED ONCE I-ARTERIAL Last administered on 05/29/16 01:00; Start 05/29/16 at 01:00; Stop 05/29/16 at 11:40; Status DC Fosphenytoin Sodium/Sodium Chloride (Cerebyx Inj/NS Inj) 70 ml @ 280 mls/hr ONCE ONCE IV Last administered on 05/29/16 14:09; Start 05/29/16 at 15:00; Stop 05/29/16 at 15:14; Status DC Fosphenytoin Sodium (Cerebyx Inj) 200 mgpe Q12HR IV Last administered on 20:41; Start 05/29/16 at 21:00; Stop 06/02/16 at 08:21; Status DC Norepinephrine Bitartrate 4 mg 4 mg STK-MED ONCE .ROUTE ; Start 05/29/16 at 18: 34; Stop 05/29/16 at 18:35; Status DC Sodium Chloride 500 ml @ 500 mls/hr Q1H ONCE IV Last administered on 17:20; Start 05/29/16 at 18:45; Stop 05/29/16 at 19:44; Status DC Norepinephrine Bitartrate 4 mg/ Sodium Chloride 250 ml @ 0 mls/hr TITRATE IV Last administered on 05/30/16 07:11; Start 05/29/16 at 19:45; Stop 05/30/16 at 09 :40; Status DC Vasopressin 40 units/Dextrose 100 ml @ 6 mls/hr [id number] IV ; Start 05/29/16 at 21:00; Stop 05/29/16 at 21:00; Status DC Vasopressin/ Sodium Chloride (Pitressin Inj/ NS Inj) 102 ml @ 6.12 mls/hr [id number] IV Last administered on 05/31/16 05:43; Start 05/29/16 at 21:00; Stop 06/01/16 at 11:28; Status DC Hydrocortisone Sodium Succinate 50 mg 50 mg Q6H IV PUSH Last administered on 08:33; Start 05/30/16 at 09:00; Stop 06/01/16 at 11:29; Status DC Phenylephrine HCl 160 mg/Dextrose 500 ml @ 0 mls/hr TITRATE IV ; Start 05/30/16 at 09:45; Stop 05/30/16 at 09:51; Status DC Norepinephrine Bitartrate 16 mg/ Sodium Chloride 262 ml @ 0 mls/hr TITRATE IV ; Start 05/30/16 at 09:45; Stop 06/08/16 at 10:35; Status DC Phenylephrine HCl/ Sodium Chloride (Neosynephrine Inj/NS 500 ml Inj) 500 ml @ 0 mls/hr TITRATE IV Last administered on 05/30/16 17:50; Start 05/30/16 at 10:00; Stop 06/01/16 at 11:29; Status DC Epinephrine HCl (EPINEPHrine (1:10,000) INJ) 1 mg STK-MED ONCE .ROUTE ; Start at 10:08; Stop 05/31/16 at 10:09; Status DC Lidocaine HCl (Xylocaine 2% Inj) 100 mg STK-MED ONCE .ROUTE ; Start 05/31/16 at 10:08; Stop 05/31/16 at 10:09; Status DC Atropine Sulfate (Atropine Inj) 1 mg STK-MED ONCE .ROUTE ; Start 05/31/16 at 10: 08; Stop 05/31/16 at 10:09; Status DC Iohexol (Omnipaque 350 Inj) 91 ml STK-MED ONCE IV Last administered on 10:56; Start 05/31/16 at 10:56; Stop 05/31/16 at 10:57; Status DC Water (Free Water) 200 ml Q6HR OG Last administered on 06/01/16 11:09; Start at 12:00; Stop 06/01/16 at 16:45; Status DC Epinephrine HCl (EPINEPHrine (1:10,000) INJ) 1 mg STK-MED ONCE .ROUTE ; Start at 11:27; Stop 06/01/16 at 11:28; Status DC Lidocaine HCl (Xylocaine 2% Inj) 100 mg STK-MED ONCE .ROUTE ; Start 06/01/16 at 11:28; Stop 06/01/16 at 11:29; Status DC Atropine Sulfate (Atropine Inj) 1 mg STK-MED ONCE .ROUTE ; Start 06/01/16 at 11: 28; Stop 06/01/16 at 11:29; Status DC Gadodiamide (Omniscan Pf Inj) 16 ml STK-MED ONCE IV Last administered on 12:50; Start 06/01/16 at 12:50; Stop 06/01/16 at 12:51; Status DC Water 300 ml 300 ml Q4HR OG Last administered on 06/03/16 03:10; Start 06/01/16 at 20:00; Stop 06/03/16 at 16:34; Status DC Sodium Chloride (NS 1000 ml Inj) 1,000 ml @ 999 mls/hr BOLUS ONCE IV Last administered on 06/01/16 16:49; Start 06/01/16 at 16:45; Stop 06/01/16 at 17:45; Status DC Fosphenytoin Sodium (Cerebyx Inj) 100 mgpe Q12HR IV Last administered on 20:10; Start 06/02/16 at 09:00 Albuterol/ Ipratropium (Duoneb Neb) 1 ampule Q6HR NEB NEB Last administered on 06/11/16 03:51; Start 06/03/16 at 16:00; Stop 06/11/16 at 08:53; Status DC Lidocaine HCl (Xylocaine 2% Inj) 100 mg STK-MED ONCE .ROUTE ; Start 06/04/16 at 10:51; Stop 06/04/16 at 10:52; Status DC Atropine Sulfate 1 mg 1 mg STK-MED ONCE .ROUTE ; Start 06/04/16 at 10:51; Stop at 10:52; Status DC Magnesium Sulfate/ Dextrose (Magnesium Sulfate 1 Gm Premix) 100 ml @ As Directed STK-MED ONCE .ROUTE ; Start 06/04/16 at 13:18; Stop 06/04/16 at 13:19; Status DC Epinephrine HCl (EPINEPHrine (1:10,000) INJ) 1 mg STK-MED ONCE .ROUTE ; Start at 10:22; Stop 06/05/16 at 10:23; Status DC Lidocaine HCl (Xylocaine 2% Inj) 100 mg STK-MED ONCE .ROUTE ; Start 06/05/16 at 10:22; Stop 06/05/16 at 10:23; Status DC Atropine Sulfate (Atropine Inj) 1 mg STK-MED ONCE .ROUTE ; Start 06/05/16 at 10: 22; Stop 06/05/16 at 10:23; Status DC Midazolam HCl (Versed Inj) 5 mg STK-MED ONCE .ROUTE ; Start 06/05/16 at 11:29; Stop 06/05/16 at 11:30; Status DC Fentanyl Citrate (fentaNYL INJ) 250 mcg STK-MED ONCE .ROUTE ; Start 06/05/16 at 11:29; Stop 06/05/16 at 11:30; Status DC Iodixanol (Visipaque 320 Inj) 172 ml STK-MED ONCE I-ARTERIAL Last administered on 06/05/16 12:15; Start 06/05/16 at 12:51; Stop 06/05/16 at 12:52; Status DC Sennosides (Senna Liq) 8.8 mg BID PO/TUBE Last administered on 06/16/16 09:21 ; Start 06/07/16 at 09:00 Polyethylene Glycol (Miralax) 17 gm DAILY PO Last administered on 06/07/16 09: 10; Start 06/07/16 at 09:00; Stop 06/08/16 at 10:35; Status DC Glycerin (Glycerin Adult Supp) 2 gm BID PRN RECTAL CONSTIPATION; Start 06/07/16 at 09:00 Lactulose (Lactulose Liq) 30 ml ONCE ONCE PO Last administered on 06/07/16 09: 10; Start 06/07/16 at 09:00; Stop 06/07/16 at 09:01; Status DC Potassium Chloride 40 meq 40 meq ONCE ONCE PO Last administered on 06/07/16 09 :11; Start 06/07/16 at 09:00; Stop 06/07/16 at 09:02; Status DC Magnesium Sulfate/ Dextrose 100 ml @ 100 mls/hr Q1H IV Last administered on 12:28; Start 06/07/16 at 10:00; Stop 06/07/16 at 11:59; Status DC Cefazolin Sodium/ Dextrose (Ancef 2 Gm Premix) 50 ml @ 100 mls/hr ICU SPECIALIST ONCE IV Last administered on 06/07/16 14:48; Start 06/07/16 at 12:45; Stop at 13:14; Status DC Cefazolin Sodium (Ancef Inj) 1,000 mg STK-MED ONCE IV Last administered on 15:14; Start 06/07/16 at 15:14; Stop 06/07/16 at 15:48; Status DC Propofol (Diprivan 200 Mg/20 ml Inj) 50 mg STK-MED ONCE IV Last administered on 06/07/16 15:15; Start 06/07/16 at 15:15; Stop 06/07/16 at 15:52; Status DC Polyethylene Glycol (Miralax) 17 gm BID PO Last administered on 06/14/16 20:46 ; Start 06/08/16 at 21:00 Iohexol (Omnipaque 350 Inj) 65 ml STK-MED ONCE IV Last administered on 12:01; Start 06/08/16 at 12:01; Stop 06/08/16 at 12:02; Status DC Bumetanide (Bumex Inj) 1 mg ONCE ONCE IV PUSH Last administered on 06/08/16 13:49; Start 06/08/16 at 13:45; Stop 06/08/16 at 13:46; Status DC Fentanyl Citrate (fentaNYL INJ) 50 mcg ONCE ONCE IV PUSH Last administered on 06/08/16 15:20; Start 06/08/16 at 16:00; Stop 06/08/16 at 16:01; Status DC Midazolam HCl (Versed Inj) 5 mg ONCE ONCE IV PUSH Last administered on 15:20; Start 06/08/16 at 16:00; Stop 06/08/16 at 16:01; Status DC Rocuronium [place] (Zemuron Inj) 50 mg BOLUS ONCE IV Last administered on 06/08 16:00; Start 06/08/16 at 16:00; Stop 06/08/16 at 16:01; Status DC Norepinephrine Bitartrate (Levophed Inj) 4 mg STK-MED ONCE .ROUTE Last administered on 06/08/16 15:27; Start 06/08/16 at 15:27; Stop 06/08/16 at 15:28 ; Status DC Sodium Chloride (Sodium Chloride 3% Neb) 2 ml Q6HR NEB NEB Last administered on 06/11/16 17:24; Start 06/08/16 at 17:00; Stop 06/11/16 at 16:59; Status DC Nicardipine HCl 25 mg 25 mg STK-MED ONCE .ROUTE ; Start 06/08/16 at 20:46; Stop 06/08/16 at 20:47; Status DC Sodium Chloride (NS 250 ml Inj) 250 ml @ As Directed STK-MED ONCE .ROUTE ; Start 06/08/16 at 20:46; Stop 06/08/16 at 20:47; Status DC Fentanyl Citrate (fentaNYL INJ) 50 mcg ONCE ONCE IV PUSH Last administered on 06/09/16 15:15; Start 06/09/16 at 12:45; Stop 06/09/16 at 12:46; Status DC Midazolam HCl (Versed Inj) 5 mg ONCE ONCE IV PUSH Last administered on 15:15; Start 06/09/16 at 12:45; Stop 06/09/16 at 12:46; Status DC Rocuronium [place] (Zemuron Inj) 50 mg BOLUS ONCE IV Last administered on 06/09 15:15; Start 06/09/16 at 12:45; Stop 06/09/16 at 12:46; Status DC Losartan Potassium (Cozaar) 25 mg DAILY PO Last administered on 06/16/16 09:19 ; Start 06/09/16 at 15:00; Stop 06/16/16 at 10:29; Status DC Hydrochlorothiazide (Microzide) 12.5 mg DAILY PO Last administered on 09:19; Start 06/10/16 at 09:00 Carvedilol (Coreg) 6.25 mg Q12HR PO Last administered on 06/16/16 09:19; Start 06/09/16 at 21:00; Stop 06/16/16 at 10:29; Status DC Phenylephrine HCl (Neosynephrine Inj) 10 mg STK-MED ONCE .ROUTE ; Start at 09:59; Stop 06/10/16 at 10:00; Status DC Phenylephrine HCl (Neosynephrine Inj) 30 mg STK-MED ONCE .ROUTE ; Start at 10:00; Stop 06/10/16 at 10:01; Status DC Iohexol (Omnipaque 350 Inj) 83 ml STK-MED ONCE IV Last administered on 11:03; Start 06/10/16 at 11:03; Stop 06/10/16 at 11:04; Status DC Verapamil HCl (Isoptin Inj) 10 mg STK-MED ONCE .ROUTE Last administered on 06/10 12:53; Start 06/10/16 at 12:53; Stop 06/10/16 at 12:54; Status DC Verapamil HCl (Isoptin Inj) 10 mg STK-MED ONCE .ROUTE Last administered on 06/10 13:29; Start 06/10/16 at 13:29; Stop 06/10/16 at 13:30; Status DC Verapamil HCl (Isoptin Inj) 5 mg STK-MED ONCE .ROUTE Last administered on 13:53; Start 06/10/16 at 13:53; Stop 06/10/16 at 13:54; Status DC Verapamil HCl (Isoptin Inj) 10 mg STK-MED ONCE .ROUTE Last administered on 06/10 13:54; Start 06/10/16 at 13:54; Stop 06/10/16 at 13:55; Status DC Verapamil HCl (Isoptin Inj) 5 mg STK-MED ONCE .ROUTE Last administered on 13:59; Start 06/10/16 at 13:59; Stop 06/10/16 at 14:00; Status DC Iodixanol 100 ml 100 ml STK-MED ONCE I-ARTERIAL Last administered on 06/10/16 14:23; Start 06/10/16 at 14:19; Stop 06/10/16 at 14:20; Status DC Sodium Chloride 1,000 ml @ 100 mls/hr Q10H IV Last administered on 06/16/16 20:12; Start 06/10/16 at 20:00 Sodium Chloride/ Sodium Chloride (Sodium Chloride 23.4% Inj/NS 1000 ml Inj) 1, 047 ml @ 30 mls/hr Q24H IV Last administered on 06/15/16 18:00; Start at 17:00 Enoxaparin Sodium 40 mg 40 mg Q24H SQ Last administered on 06/16/16 17:09; Start 06/11/16 at 17:00 Aztreonam 1000 mg/ Sodium Chloride 100 ml @ 200 mls/hr Q8H IV Last administered on 06/14/16 04:26; Start 06/12/16 at 12:00; Stop 06/14/16 at 10:56 ; Status DC Levofloxacin/ Dextrose 150 ml @ 100 mls/hr Q24H IV Last administered on 13:01; Start 06/12/16 at 13:00 Pharmacy Profile Note 0 ml @ 0 mls/hr UNSCH OTHER ; Start 06/12/16 at 11:15; Stop 06/14/16 at 10:56; Status DC Vancomycin HCl/ Sodium Chloride (Vancomycin Inj/ NS 500 ml Inj) 515 ml @ 250 mls/hr Q12H IV Last administered on 06/14/16 01:59; Start 06/12/16 at 14:00; Stop 06/14/16 at 10:57; Status DC Miscellaneous Information SPECIFIC LAB TO BE DRAWN:VANCOMYCIN TROUGH DATE TO... ONCE ONCE XX Last administered on 06/14/16 01:45; Start 06/14/16 at 01:45; Stop 06/14/16 at 01:46; Status DC Norepinephrine Bitartrate 4 mg 4 mg STK-MED ONCE .ROUTE ; Start 06/14/16 at 09: 01; Stop 06/14/16 at 09:02; Status DC Norepinephrine Bitartrate/Sodium Chloride (Levophed Inj/NS 250 ml Inj) 250 ml @ 0 mls/hr TITRATE IV Last administered on 06/15/16 23:24; Start 06/14/16 at 23: 15 Potassium Chloride (KCl Powder) 40 meq NOW ONCE GT Last administered on 06:19; Start 06/15/16 at 06:00; Stop 06/15/16 at 06:01; Status DC Carvedilol (Coreg) 3.125 mg Q12HR PO Last administered on 06/16/16t 20:11; Start 06/16/16 at 21:00 Medical Decision Making MDM Remarks Last Impressions Transcranial Doppler Study Complete 06/14/16 0000 Signed Impressions: Service Date/Time: May 11:29 - CONCLUSION: Overall there has been improvement better on the right than the left. Careful followup is suggested because of the elevated velocities home the left. Dillon Zaragoza MD FACR Chest X-Ray 06/11/16 0600 Signed Impressions: Service Date/Time: Saturday, June 11, 2016 04:00 - CONCLUSION: No change of bilateral hazy lower lung zone opacity indicating pulmonary edema versus pleural effusions. David Powell MD Neck CTA 06/10/16 0000 Signed Impressions: Service Date/Time: Friday, June 10, 2016 10:50 - CONCLUSION: There is beadng of the distal internal carotid bilaterally likely related to spasm.. Lauro Mcbride MD Head CTA 06/10/16 0000 Signed Impressions: Service Date/Time: Friday, June 10, 2016 10:50 - CONCLUSION: Suspected diffuse vasospasm. Lauro Mcbride MD Liver Ultrasound 06/08/16 0000 Signed Impressions: Service Date/Time: Wednesday, June 08, 2016 14:00 - CONCLUSION: Ultrasound appearance of the liver and surrounding structures within normal limits. Lauro Logan MD CT Angiography 06/08/16 0000 Signed Impressions: Service Date/Time: Wednesday, June 08, 2016 11:54 - CONCLUSION: 1. Bilateral pleural effusions with compressive atelectasis. 2. No pulmonary embolus. Lauro Logan MD Abdomen/Pelvis CT 06/08/16 0000 Signed Impressions: Service Date/Time: Wednesday, June 08, 2016 11:54 - CONCLUSION: 1. There is mild distention of the colon but there are no findings to indicate bowel obstruction. A small volume of free fluid is present within the abdomen and pelvis. 2. Anasarca along with a presacral edema. 3. Small to moderate-sized bilateral pleural effusions with associated compressive atelectasis. Lauro Lamb MD Cerebral Arteriogram 06/05/16 0000 Signed Impressions: Service Date/Time: Sunday, June 05, 2016 00:00 - CONCLUSION: 1. No evidence of aneurysm 2. 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 I do not see a mass. Etiology for the hemorrhage is not apparent. Dillon Zaragoza MD FACR Brain MRI 06/01/16 Signed Impressions: Service Date/Time: Wednesday, June 01, 2016 12:14 - CONCLUSION: 1. Intraventricular blood, negative for mass. Dillon Zaragoza MD FACR Head CT 05/31/16 0000 Signed Impressions: Service Date/Time: May 10:44 - CONCLUSION: Extensive subarachnoid hemorrhage including significant hemorrhage in the foramen magnum similar to the 05/29/16 exam. The ventricles do appear to be larger today with significant intraventricular hemorrhage present. Ventriculostomy catheter in good position. David Spencer MD Last Impressions Transcranial Doppler Study Complete 06/10/16 0215 Signed Impressions: Service Date/Time: Friday, June 10, 2016 07:12 - CONCLUSION: Suspected spasm on the right side. Attempts will be made to contact the treating physician with this result. Lauro Mcbride MD Chest X-Ray 06/09/16 0600 Signed Impressions: Service Date/Time: Thursday, June 09, 2016 04:24 - CONCLUSION: Increasing consolidation left lower lung. Werner Melgar MD Liver Ultrasound 06/08/16 0000 Signed Impressions: Service Date/Time: Wednesday, June 08, 2016 14:00 - CONCLUSION: Ultrasound appearance of the liver and surrounding structures within normal limits. Lauro Logan MD CT Angiography 06/08/16 Signed Impressions: Service Date/Time: Wednesday, June 08, 2016 11:54 - CONCLUSION: 1. Bilateral pleural effusions with compressive atelectasis. 2. No pulmonary embolus. Lauro Logan MD Abdomen/Pelvis CT 06/08/16 Signed Impressions: Service Date/Time: Wednesday, June 08, 2016 11:54 - CONCLUSION: 1. There is mild distention of the colon but there are no findings to indicate bowel obstruction. A small volume of free fluid is present within the abdomen and pelvis. 2. Anasarca along with a presacral edema. 3. Small to moderate-sized bilateral pleural effusions with associated compressive atelectasis. Lauro Lamb MD Cerebral Arteriogram 06/05/16 0000 Signed Impressions: Service Date/Time: Sunday, June 05, 2016 00:00 - CONCLUSION: 1. No evidence of aneurysm 2. 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 I do not see a mass. Etiology for the hemorrhage is not apparent. Dillon Zaragoza MD FACR Brain MRI 06/01/16 0000 Signed Impressions: Service Date/Time: Wednesday, June 01, 2016 12:14 - CONCLUSION: 1. Intraventricular blood, negative for mass. Dillon Zaragoza MD FACR Head CTA 05/31/16 0000 Signed Impressions: Service Date/Time: May 10:44 - CONCLUSION: 1. No evidence of vasospasm Brandon Herrera MD Head CT 05/31/16 0000 Signed Impressions: Service Date/Time: May 10:44 - CONCLUSION: Extensive subarachnoid hemorrhage including significant hemorrhage in the foramen magnum similar to the 05/29/16 exam. The ventricles do appear to be larger today with significant intraventricular hemorrhage present. Ventriculostomy catheter in good position. David Spencer MD Plan Plan Remarks Continue neuro checks. Improved after angiography and angioplasty. Wean CSF drainage via ventriculostomy Respiratory. Continue mechanical ventilation in assist contyrol mode of mechanical ventilation, pulmonary toilette, nasotracheal suction, and breathing treatments with nebulizers. Hypertension As needed Cardene to maintain systolic blood pressure less than 150. PT and OT eval Nutrition. tube feedings Renal. Continue to monitor closely urine output, BUN and creatinine Endocrine. Continue to Monitor serial Acu checks and SSI for tight control ID continue to monitor for signs of infection Continue Protonix for stress ulcer prophylaxis Continue Julio hose and SCD's for DVT prophylaxis Attending Statement Continue neuro checks. Continue CSF drainage via ventriculostomy. Wean ventriculostomy Respiratory. Continue mechanical ventilation in assist contyrol mode of mechanical ventilation, pulmonary toilette, nasotracheal suction, and breathing treatments with nebulizers. Hypertension As needed Cardene to maintain systolic blood pressure less than 150. PT and OT eval Nutrition. tube feedings Renal. Continue to monitor closely urine output, BUN and creatinine Endocrine. Continue to Monitor serial Acu checks and SSI for tight control ID continue to monitor for signs of infection Continue Protonix for stress ulcer prophylaxis Continue Julio bairon and SCD's for DVT prophylaxis. Lovenox Arcenio Mtz MD Jun 16, 2016 19:03 Renal. Continue to monitor closely urine output, BUN and creatinine Endocrine. Continue to Monitor serial Acu checks and SSI for tight control ID continue to monitor for signs of infection Continue Protonix for stress ulcer prophylaxis Continue Julio bairon and SCD's for DVT prophylaxis Arcenio Mtz MD Jun 16, 2016 19:03
[2016-06-16] MEDS: PRAVASTATIN SOD 40 MG TAB PO SCH (20:10)
[2016-06-16] MEDS: CARVEDILOL 3.125 MG TAB PO SCH (20:11)
[2016-06-17] VITALS (14 sets, daily range): BP systolic 155–182; BP diastolic 66–86; PULSE 79–98; RESP 17–20; TEMP 97.3–98.4; O2SAT 95–99
[2016-06-17] MEDS: niMODipine 30 MG CAP PO SCH ×7 (00:29→23:12)
[2016-06-17] MEDS: CHLORHEXIDINE GLUCONATE 2 % 1 PACK (2 CLOTHS) TOP SCH (04:00)
[2016-06-17] MEDS: INSULIN NovoLIN REGULAR SUPPLEMENTAL SCALE SQ SCH ×5 (05:57→23:12)
[2016-06-17] MEDS: SODIUM CHLOR 0.9% 1000 ML INJ 1,000 ML IV SCH ×3 (06:46→20:51)
[2016-06-17] MEDS: ARTIFICIAL TEARS OPTH SOLN 15 ML BTL EACH EYE SCH ×3 (09:00→17:36)
[2016-06-17] MEDS: SODIUM CHLORIDE 0.9% FLUSH 5 ML FLUSH IV FLUSH SCH ×2 (09:00→20:21)
[2016-06-17] MEDS: POLYETHYLENE GLYCOL 17 GM PKG PO SCH ×2 (10:08→20:21)
[2016-06-17] MEDS: DOCUSATE SODIUM 100 MG/10 ML UDC G-TUBE SCH ×2 (10:08→20:20)
[2016-06-17] MEDS: CARVEDILOL 3.125 MG TAB PO SCH ×2 (10:08→20:20)
[2016-06-17] MEDS: FAMOTIDINE 20 MG/2 ML VIAL IV PUSH SCH ×2 (10:08→20:21)
[2016-06-17] MEDS: SENNOSIDES SYRUP 8.8 MG/5 ML CUP PO/TUBE SCH ×2 (10:08→20:20)
[2016-06-17] MEDS: HYDROCHLOROTHIAZIDE 12.5 MG CAP PO SCH (10:08)
[2016-06-17] MEDS: FOSPHENYTOIN SODIUM 100 MG PE/2 ML VIAL IV SCH ×2 (10:08→20:20)
[2016-06-17] MEDS: levETIRAcetam 1000 MG INJ 100 ML IV SCH ×2 (10:09→20:21)
[2016-06-17] MEDS: POTASSIUM CHLOR 20 MEQ PREMIX 100 ML IV PRN ×2 (10:15→15:14)
--- NOTE | 2016-06-17 11:26 | HHI.NSPN ---
(Allison Mccullough) Note Status Status: Progress Note (Allison Mccullough) Interval History Interval History This is a 66 years old female was transferred to [facility] from [facility] for a subarachnoid hemorrhage. The patient and the was vacationing from [place]. They were on the train. Patient's states that around 2:00 this afternoon she suddenly developed severe headache and then vomited, and then had a syncopal episode. The train stopped. EMS was called. EMS personnel state that patient had altered status was able to follow commands and beginning without focal neurological deficit. No seizure activity. No tongue bitting. No tonic clonic movements. no incontinence of stool or urine. She was transported to [facility] in [place]. On the way to the hospital, she developed respiratory problem and patient was subsequently endotracheally intubated. She has history of atrial fibrillation and hypertension and was anticoagulated with Xarelto 20 mg daily. In addition she takes atorvastatin, HCTZ/ losartan, metoprolol. CT scan of the brain done at [facility] in [place] shows extensive subarachnoid and intraventricular hemorrhage with early obstructive hydrocephalus developing. She was placed given propofol and Cardene drip. Cardene drip and propofol was stopped secondary to hypotension on the way to the ED. Neurosurgical consultation was requested 05/28: intubated and sedated, s/p placement of ventriculostomy drain. CTA Brain neg for aneurysm, for cerebral angiography today, 05/29: seen this am during am round, withdrawing in the lower extremities, did not open eyes or follow commands for me, was reported to have followed with nursing. Cerebral angiography yesterday was neg for aneurysm. Then sergei Mario , patient having seizures, and posturing. ICPs has been 8-10, nursing reports EVD draining, CSF blood tinged. Transcranial doppler early this am negative for vasospasm 3/1: extends in uppers, withdraws in LEs 3/2: minimal withdrawals in the lower extremities, and extension. f/u CT Brain shows increased ventriculomegaly. CTA Head unremarkable for intracranial aneurysm. f/u EEG reports severe encephalopathy. ICPs at highest 8 overnight. 06/01: this morning slightly wiggled toes to command. ICPs below 5, EVD draining blood tinged CSF. 06/04: slightly opening eyes, EVD draining dark red CSF at 10 cm H20, ICPs at highest 8 overnight. 06/05: ICPs stable overnight, opening eyes. No reports of seizure like activities overnight. EVD continues to drain well. 06/06: cerebral angio completed yesterday, otherwise no neuro changes overnight. EVD draining, with stable ICPs. 06/07: opens eyes to pain stim, withdraws LE's, CSF dark red with stable ICPs 06/08: intubated, moderate eye opening, not tracking, not following commands. 06/11: eyes open, focuses, wiggled toes toe command. s/p intraarterial administration of verapamil for vasospasm 06/12: seen this morning during morning rounds, opens eyes, ICPs continues below 20. 06/13: mouthing words, moving upper extremities to commands, tracking more. 06/14: appears less awake and responsive today, EVD at 17 cm H20 with ICPs at highest 13. No recent TCDs. 06/15: More awake today, opens eyes and mouthing "I'm okay", reported she had followed command to right upper, and we true lower extremities to local stimuli , EVD @ 5 cmH20 06/17: EVD at 10 cm H20, mental status improving, awake, following commands. ( Allison Mccullough) Labs, Micro, & Vital Signs Results Date Time Temp Pulse Resp B/P Pulse Ox O2 Delivery O2 Flow Rate FiO2 06/17/16 06:00 86 06/17/16 04:00 89 06/17/16 04:00 98.1 89 20 155/66 95 06/17/16 02:00 79 06/17/16 00:00 79 06/17/16 00:00 97.3 79 17 172/73 98 06/16/16 22:00 82 06/16/16 21:05 98 T-piece 5.00 28 06/16/16 20:00 84 06/16/16 20:00 97.5 84 19 184/82 99 06/16/16 18:00 90 06/16/16 16:00 98.6 92 20 158/75 97 06/16/16 16:00 92 06/16/16 14:00 85 06/16/16 12:00 82 06/16/16 12:00 98.4 82 20 168/75 95 06/17/16 07:00 Intake Total 5150 ml Output Total 6300.0 ml Balance -1150.0 ml Constitutional Vital Signs Date Time Temp Pulse Resp B/P Pulse Ox O2 Delivery O2 Flow Rate FiO2 06/17/16 06:00 86 06/17/16 04:00 89 06/17/16 04:00 98.1 89 20 155/66 95 06/17/16 02:00 79 06/17/16 00:00 79 06/17/16 00:00 97.3 79 17 172/73 98 06/16/16 22:00 82 06/16/16 21:05 98 T-piece 5.00 28 06/16/16 20:00 84 06/16/16 20:00 97.5 84 19 184/82 99 06/16/16 18:00 90 06/16/16 16:00 98.6 92 20 158/75 97 06/16/16 16:00 92 06/16/16 14:00 85 06/16/16 12:00 82 06/16/16 12:00 98.4 82 20 168/75 95 06/17/16 07:00 Intake Total 5150 ml Output Total 6300.0 ml Balance -1150.0 ml (Allison Mccullough) Review of Systems/Exam Exam Ms. Michaels awake, eyes open, following commands. Neck: tracheostomy in place Right ventriculostomy drain at 10 cm H20, ICPs <10. CSF clearing up, xanthochromic. Site is clean without evidence of infection. Cranial Nerves: Pupils 4 mm b/l Motor: wiggled b/l toes to commands, left > right, slightly moved right arm also Sensory: mild response to b/l LE Cerebellar: unable to assess due to her condition (Allison Mccullough) Exam Ms. Michaels awake, eyes open, following commands. Neck: tracheostomy in place Right ventriculostomy drain at 10 cm H20, ICPs <10. CSF clearing up, xanthochromic. Site is clean without evidence of infection. Cranial Nerves: Pupils 4 mm b/l Motor: wiggled b/l toes to commands, left > right, slightly moved right arm also Sensory: mild response to b/l LE Cerebellar: unable to assess due to her condition (Arcenio Mtz MD) Medications Current Medications Current Medications Medications (Trade) Dose Ordered Sig/Jerry Route PRN Reason Start Time Stop Time Status Last Admin Dose Admin Propofol (Diprivan 1000 Mg/100ml Inj) 100 ml @ 0 mls/hr TITRATE IV 05/27/16 19:45 05/28/16 23:16 IV Flush (NS Flush) 2 ml UNSCH PRN IV FLUSH FLUSH AFTER USING IV ACCESS 05/27/16 20:45 05/27/16 22:30 IV Flush (NS Flush) 2 ml BID IV FLUSH 05/27/16 21:00 06/17/16 09:00 Acetaminophen (Tylenol) 650 mg Q6H PRN PO PAIN 1-10 AND/OR FEVER >101F 05/27/16 20:45 06/07/16 17:14 Famotidine (Pepcid Inj) 20 mg Q12HR IV PUSH 05/27/16 21:00 06/17/16 10:08 Artificial Tears (Tears Naturale Opth Soln) 1 drop TID EACH EYE 05/28/16 09:00 06/17/16 09:00 Ondansetron HCl (Zofran Inj) 4 mg Q6H PRN IV NAUSEA OR VOMITING 05/27/16 20:45 Docusate Sodium (Colace Liq) 100 mg Q12H G-TUBE 05/27/16 20:45 06/17/16 10:08 Miscellaneous Information 1 Q361D XX 05/27/16 20:45 05/27/16 20:45 Chlorhexidine Gluconate (Chlorhexidine 2% Cloth) 3 pack Taper DAILY@04 TOP 05/28/16 04:00 05/24/17 03:59 06/16/16 04:23 Chlorhexidine Gluconate 3 pack 3 pack UNSCH PRN TOP HYGIENIC CARE 05/27/16 20:45 Nicardipine HCl/ Sodium Chloride (Cardene Inj/NS 250 ml Inj) 260 ml @ 0 mls/hr TITRATE IV 05/27/16 21:00 06/09/16 15:00 Nimodipine (Nimotop) 60 mg Q4HR PO 05/28/16 00:00 06/17/16 10:15 Pravastatin Sodium 40 mg 40 mg HS PO 05/27/16 21:00 06/16/16 20:10 Levetriacetam 100 ml @ 400 mls/hr Q12HR IV 05/28/16 09:00 06/17/16 10:09 Potassium Chloride 100 ml @ 50 mls/hr Q2H PRN IV For Potassium 2.8 - 3.2 mEq/L 05/28/16 01:45 06/04/16 13:40 Potassium Chloride (KCl 20 Meq Premix Inj) 100 ml @ 50 mls/hr Q2H PRN IV For Potassium 2.8 - 3.2 mEq/L 05/28/16 01:45 06/15/16 11:40 Potassium Chloride 40 meq 40 meq UNSCH PRN PO/TUBE For Potassium 3.3 - 3.5 mEq/L 05/28/16 01:45 06/12/16 03:32 Potassium Chloride 100 ml @ 50 mls/hr Q2H PRN IV For Potassium 3.3 - 3.5 mEq/L 05/28/16 01:45 06/17/16 10:15 Magnesium Sulfate/ Sodium Chloride (Magnesium Sulfate Inj/NS Inj) 100 ml @ 50 mls/hr UNSCH PRN IV For Magnesium 0.9 - 1.1 mg/dL 05/28/16 01:45 Magnesium Oxide 800 mg 800 mg UNSCH PRN PO For Magnesium 1.2 - 1.6 mg/dL 05/28/16 01:45 Magnesium Sulfate/ Sodium Chloride (Magnesium Sulfate Inj/NS Inj) 100 ml @ 50 mls/hr UNSCH PRN IV For Magnesium 1.2 - 1.6 mg/dL 05/28/16 01:45 06/04/16 13:40 Potassium Phosphate 2000 mg 2,000 mg Q4H PRN PO For Phosphorus < 2.5 mg/dL 05/28/16 01:45 Sodium Phosphate/ Sodium Chloride (Sodium Phosphate Inj/NS 250 ml Inj) 250 ml @ 42 mls/hr UNSCH PRN IV For Phosphorus < 2.5 mg/dL 05/28/16 01:45 06/10/16 08:45 Potassium Chloride (KCl 40 Meq/30 ml Liq) 40 meq UNSCH PRN PO/TUBE SEE LABEL COMMENTS 05/28/16 01:45 06/03/16 05:31 Potassium Phosphate 2000 mg 2,000 mg UNSCH PRN PO/TUBE SEE LABEL COMMENTS 05/28/16 01:45 Potassium Phosphate/Sodium Chloride (Potassium Phosphate Inj/NS 250 ml Inj) 260 ml @ 42 mls/hr UNSCH PRN IV SEE LABEL COMMENTS 05/28/16 01:45 06/08/16 17:09 Dextrose (D50w (Vial) Inj) 25 ml UNSCH PRN IV PUSH HYPOGLYCEMIA-SEE COMMENTS 05/29/16 07:30 Insulin Human Regular (NovoLIN R SUPPLEMENTAL SCALE) 1 Q6HR SQ 05/29/16 12:00 06/17/16 05:57 Fosphenytoin Sodium (Cerebyx Inj) 100 mgpe Q12HR IV 06/02/16 09:00 06/17/16 10:08 Sennosides (Senna Liq) 8.8 mg BID PO/TUBE 06/07/16 09:00 06/17/16 10:08 Glycerin (Glycerin Adult Supp) 2 gm BID PRN RECTAL CONSTIPATION 06/07/16 09:00 Polyethylene Glycol (Miralax) 17 gm BID PO 06/08/16 21:00 06/17/16 10:08 Hydrochlorothiazide 12.5 mg 12.5 mg DAILY PO 06/10/16 09:00 06/17/16 10:08 Sodium Chloride 1,000 ml @ 100 mls/hr Q10H IV 06/10/16 20:00 06/17/16 06:46 Sodium Chloride/ Sodium Chloride (Sodium Chloride 23.4% Inj/NS 1000 ml Inj) 1,047 ml @ 30 mls/hr Q24H IV 06/11/16 17:00 06/15/16 18:00 Enoxaparin Sodium 40 mg 40 mg Q24H SQ 06/11/16 17:00 06/16/16 17:09 Levofloxacin/ Dextrose 150 ml @ 100 mls/hr Q24H IV 06/12/16 13:00 06/16/16 13:01 Norepinephrine Bitartrate/Sodium Chloride (Levophed Inj/NS 250 ml Inj) 250 ml @ 0 mls/hr TITRATE IV 06/14/16 23:15 06/15/16 23:24 Carvedilol (Coreg) 3.125 mg Q12HR PO 06/16/16 21:00 06/17/16 10:08 (Allison Mccullough) Medical Decision Making MDM Remarks 66 y/o female with subarachnoid hemorrhage suspected intracranial aneurysm, placement of ventriculostomy drain CTA Head x 2 negative for aneurysm, Cerebral angiography neg for aneurysm, repeat cerebral angio 06/05/16 again neg for intracranial aneurysm TCD and CTA Head 06/10 with vasospasm, s/p intra-arterial administration of verapamil (Allison Mccullough) Plan Plan Remarks rechallenging ventriculostomy drain, pt currently tolerating clamp EVD with f/u CT Head tomorrow to assess for hydrocephalus cont monitoring ICPs cont current care mental status better, f/u exam tomorrow dw nursing (Allison Mccullough) Attending Statement Continue neuro checks. Clamp ventriculostomy today. Follow up CT in AM Respiratory. Continue mechanical ventilation in assist contyrol mode of mechanical ventilation, pulmonary toilette, nasotracheal suction, and breathing treatments with nebulizers. Hypertension As needed Cardene to maintain systolic blood pressure less than 150. PT and OT eval Nutrition. tube feedings Renal. Continue to monitor closely urine output, BUN and creatinine Endocrine. Continue to Monitor serial Acu checks and SSI for tight control ID continue to monitor for signs of infection Continue Protonix for stress ulcer prophylaxis Continue Julio hose and SCD's for DVT prophylaxis. Lovenox The exam, history, and the medical decision-making described in the above note were completed with the assistance of the mid-level provider. I reviewed and agree with the findings presented. I attest that I had a [id number] encounter with the patient on the same day, and personally performed and documented my assessment and findings in the medical record. (Arcenio Mtz MD) Allison Mccullough Jun 17, 2016 11:26 Arcenio Mtz MD Jun 17, 2016 19:33
[2016-06-17] MEDS: LEVOFLOXACIN 750 MG PREMIX INJ 150 ML IV SCH (12:23)
[2016-06-17 12:54] LABS: ALKALINE PHOSPHATASE 177 U/L (45-117); ALT (GPT) 113 U/L (10-53); ANION GAP 10 MEQ/L (5-15); AST (GOT) 44 U/L (15-37); BICARBONATE 30.3 MEQ/L (21.0-32.0); BLOOD UREA NITROGEN 7 MG/DL (7-18); CHLORIDE 96 MEQ/L (98-107); GLOMERULAR FILTRATION RATE 175 ML/MIN (>89); POTASSIUM 3.4 MEQ/L (3.5-5.1); SODIUM (NA) 136 MEQ/L (136-145); TOTAL BILIRUBIN ADULT 0.2 MG/DL (0.2-1.0)
--- NOTE | 2016-06-17 13:02 | HHI.CCPN ---
Subjective Remarks/Hospital Course Hospital Course: 66 years old female was transferred to [facility] from [facility] in [place]. Patient and her was vacationing from [place]. They aware on the train while at around 2:00 patient started having severe headache and then vomited and then had a syncopal episode. Patient was transported to [facility] in [place]. On the way to the hospital, patient started having respiratory problem and patient was subsequently intubated. Patient has history of atrial fibrillation and hypertension and on Xarelto 20 mg daily, atorvastatin, HCTZ/ losartan, metoprolol. CT scan of the brain done at [facility] in [place] shows diffuse subarachnoid hemorrhage with intraventricular extension and early obstructive hydrocephalus developing. Dr. Mtz, neurosurgeon at [facility] was contacted and accepted transfer. 05/28: slight improvements, withdrawing to deep nailbed pressure. on cardene for hypertension. plan for angio today or tomorrow. 05/29: worsening neuro exam overnight. repeat head CT with effacement, slight compression of the brainstem. angiogram overnight without evidence of aneurysm or vasospasm. more hypotensive this morning on norepinephrine. flaccid x 4, no cough or gag. propofol turned off at 0600. 05/30: EEG with evidence of seizures. Keppra increased yesterday and Cerebryx loaded. this morning, on increasing vasopressor requirements. added phenylephrine on top of maximal levophed, vasopressin. echo with prelim hyperdynamic biventricular function. ICP stable. poor neurologic function. posturing in UEs. 05/31: vasopressors weaned overnight significantly, but remains on some support. repeat EEG improved with no evidence of ongoing ictal activity. ICP stable. this morning, no longer following commands in LEs, no longer posturing in upper extremities. discussed care with Dr. Mtz, will plan to go to CT/CTA brain to r /o vasospasm.06/01: CTA yesterday without evidence of vasospasm. TCDs negative today for vasospasm. still will intermittently follow commands in LEs, nothing in upper extremities. Na still very high, 160s. ICP well controlled. off vasopressors. 06/02: Na coming down slowly. TCDs pending for today. neuro exam stable. phenytoin level borderline high. 06/03: Tmax 100.4. Currently 99.1. Tolerating tube feeds at goal. Positive BM. Neuro exam remains stable. 3/6: Remains sedated, orally intubated on mechanical ventilation. Ventriculostomy in place. Cardene drip at 1 mg/h 06/05: Remains sedated, orally intubated on mechanical ventilation. Ventriculostomy in place. 06/06: AM laboratories currently pending. Afebrile. Noted cerebral angiogram without signs of vasospasm. 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 Dr. Mtz recommends per contains tracheostomy per RN. Tolerating tube feeding. 06/07: Tmax 99.5. Currently afebrile. Plan for cutaneous tracheostomy today. Ordered for PEG tube for a.m. Neurological unchanged with extension lower extremities flaccid upper extremities. 06/08: Tmax 100.8. This morning with acute episode acutely desaturated. Chest X-ray shows bilateral lower lobe infiltrates/pleural effusions. +600 cc past 24 hours. No bowel movement since 06/05. Status post PEG tube yesterday without complication. Subjective: 06/09: Afebrile. Desaturate yesterday requiring bronchoscopy. Thick white secretions noted throughout right in left lobes. Actually hard yellow secretions that coated the scope required multiple washings at end of ET tube probably causing desaturation. Currently down to 55%. Plan for tracheostomy today at 3 PM. 06/10 moderate vasospasm on TCD's on the right Lindegaard ratio 3.7, severe vasospasm on CTA 06/11: Eyes open spontaneously tracking intermittently following commands by wiggling toes. s/p intraarterial administration of verapamil for vasospasm 06/10. 06/12: Fresh pus draining from subcutaneous tissue at PEG insertion site on abdominal wall. Cultures sent, abx started. 06/13: Purulent PEG site drainage growing Staph and a GNR. Continue Vanc and PIP /KORTNEY. Site looks acid cleaner today. 06/14: Wound with MSSA and Serratia. Will narrow to levaquin. Leukocytosis has resolved. Less responsive today, will order TCDs. 06/15: Diuresis now, review specific gravity. May be DI. 06/16: No DI. Will hold ARB while we are trying to raise MAP. 06/17: Breathing comfortably on trach collar/T-piece set-up for 48 hours now. Afebrile and leukocytosis has resolved on levaquin. Objective Vital Signs Date Time Temp Pulse Resp B/P Pulse Ox O2 Delivery O2 Flow Rate FiO2 06/17/16 12:00 87 06/17/16 09:45 96 T-piece 5.00 28 06/17/16 04:00 98.1 20 155/66 Intake and Output 06/16/16 06/16/16 06/17/16 08:00 16:00 00:00 Intake Total 1542 ml 1897 ml 1788 ml Output Total 2885.0 ml 2495 ml 1940 ml Balance -1343.0 ml -598 ml -152 ml Result Diagram: 06/14/16 0823 06/17/16 1200 Imaging Last Impressions Transcranial Doppler Study Complete 06/08/16 0215 Signed Impressions: Service Date/Time: Wednesday, June 08, 2016 07:52 - CONCLUSION: There are no findings to indicate vasospasm. Lauro Lamb MD Liver Ultrasound 06/08/16 0000 Signed Impressions: Service Date/Time: Wednesday, June 08, 2016 14:00 - CONCLUSION: Ultrasound appearance of the liver and surrounding structures within normal limits. Lauro Logan MD Chest X-Ray 06/08/16 0000 Signed Impressions: Service Date/Time: Wednesday, June 08, 2016 16:02 - CONCLUSION: 1. No pneumothorax or other acute complication seen after bronchoscopy. 2. Mild consolidation and small effusions of both bases, stable on the left and slightly improved on the right. Lauro Logan MD CT Angiography 06/08/16 0000 Signed Impressions: Service Date/Time: Wednesday, June 08, 2016 11:54 - CONCLUSION: 1. Bilateral pleural effusions with compressive atelectasis. 2. No pulmonary embolus. Lauro Logan MD Abdomen/Pelvis CT 06/08/16 0000 Signed Impressions: Service Date/Time: Wednesday, June 08, 2016 11:54 - CONCLUSION: 1. There is mild distention of the colon but there are no findings to indicate bowel obstruction. A small volume of free fluid is present within the abdomen and pelvis. 2. Anasarca along with a presacral edema. 3. Small to moderate-sized bilateral pleural effusions with associated compressive atelectasis. Lauro Lamb MD Cerebral Arteriogram 06/05/16 0000 Signed Impressions: Service Date/Time: Sunday, June 05, 2016 00:00 - CONCLUSION: 1. No evidence of aneurysm 2. 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 I do not see a mass. Etiology for the hemorrhage is not apparent. Dillon Zaragoza MD FACR Brain MRI 06/01/16 0000 Signed Impressions: Service Date/Time: Wednesday, June 01, 2016 12:14 - CONCLUSION: 1. Intraventricular blood, negative for mass. Dillon Zaragoza MD FACR Head CTA 05/31/16 0000 Signed Impressions: Service Date/Time: May 10:44 - CONCLUSION: 1. No evidence of vasospasm Brandon Herrera MD Head CT 05/31/16 0000 Signed Impressions: Service Date/Time: May 10:44 - CONCLUSION: Extensive subarachnoid hemorrhage including significant hemorrhage in the foramen magnum similar to the 05/29/16 exam. The ventricles do appear to be larger today with significant intraventricular hemorrhage present. Ventriculostomy catheter in good position. David Spencer MD Objective Remarks GENERAL: 66 year old female. SKIN: Warm and dry. No rash HEAD: Status post right frontal daquan hole ventriculostomy, healing well. EYES: PERRL. 2 mm bilaterally. No injection or drainage. NECK: Supple, trachea midline. Tracheostomy site intact, clean. CARDIOVASCULAR: RRR. S1, S2 no sore. Without murmur. No JVD. RESPIRATORY: Breath sounds diminished in the bases bilaterally. Acceptable excursions. No wheezing. GASTROINTESTINAL: Abdomen soft, non-tender, nondistended. PEG tube site clean Positive bowel sounds. MUSCULOSKELETAL: With 1+ lower extremity edema Neuro: Uses both arms spontaneously, weak withdrawals in her bilateral LEs. Eyes are spontaneously open. Does not track. More reactive since ventric lowered. A/P Problem List: (1) Subarachnoid hemorrhage ICD Code: I60.9 Status: Acute (2) Atrial fibrillation ICD Code: I48.91 Status: Acute (3) Coagulopathy ICD Code: D68.9 Status: Acute (4) Respiratory failure ICD Code: J96.90 Status: Acute (5) Hypertension ICD Code: I10 Status: Acute Assessment and Plan Neuro/Psych: Spontaneous subarachnoid bleed with severe vasospasm Intracranial hypertension Malignant cerebral edema Seizures --CT head subarachnoid hemorrhage, MRI/A revealed no mass/source of bleeding --EEG 05/31 revealed moderate encephalopathy. No epileptiform activity q1h neuro checks Nimodipine 60 mg every 4 hours for 21 days Four-vessel angiogram 05/29 negative for aneurysm of vasospasm. No FMD - unable to access left vertebral artery off sedation, as long as ICPs are controlled --s/p 3% nacl. slowly normalizing Na, eventual goal Na 140 - 145. Today 137. start 2% at 30 ml per hour and reduce NS to 150 ml per hour --Keppra 1000 twice a day and Dilantin 100mg iv q12h. recheck phenytoin level 06/05 was 7.8. Recheck 06/10 --Dr. Mtz: neurosurgery --CT/CTA 05/31: no evidence of vasospasm. --Daily TCDs --Negative cerebral angio to confirm 06/06. - 06/10 severe vasospasm in the most right cerebral arteries. Status post intra- arterial verapamil treatment by IR 06/10. Repeat TCD - HHH therapy with a systolic blood pressure goal 160-180 - Restart leophed to keep MAP elevated. MAP acceptable. Respiratory: Acute Hypoxic and hypercarbic respiratory failure --PRVC ventilation 14/500/1/5/55 Vent bundle --Duo nebs every 6 hours As needed bronchodilator therapy Head of bed elevated Wean FiO2 for goal SPO2 greater than 92% -CTA chest negative for PE. Positive bilateral lower lobe atelectasis and small to moderate bilateral pleural effusions Cardiovascular: Severe vasoplegia/Distributive Shock- resolved History of hypertension Dyslipidemia History fibrillation/chronic Off vasopressors. - severe vasospasm. Target systolic blood pressure 160-180. Remains spontaneously on this range without vasopressors Nimodipine 60 mg every 4 21 days - Pravachol -Home medications are losartan/HCTZ 100/12.5 daily and metoprolol 25 mg twice a day. Hold all BP meds -Pravachol 40 mg for vasospasm prevention -Echocardiogram 05/31 revealed EF 65%. Moderate TR. Renal: Parker for strict I's and O's -- Strict I/Os Avoid hypovolemia FEN/GI: Hypernatremia - resolving Acute protein calorie malnutrition- mild Hypokalemia Maintenance fluids normal saline. Avoid hypovolemia tube feeds, Jevity 1.5, goal 50 cc an hour -Pepcid twice a day for GI prophylaxis -Colace/Senokot for bowel regimen ICU electrolyte protocol Daily BMP Heme/ID: Coagulopathy secondary to Xarelto anticoagulation use for atrial fibrillation- resolved. Leukocytosis Daily CBC Status post K Centra Does not meet transfusion triggers at this time --holding Eliquis given SAH. Endocrine: Hyperglycemia of critical illness -- SSI, every 6 hours, medium scale PEG site infection -Culture sent -Azactam, Levaquin, Vanc started 06/12 -> narrow to levaquin. Prophylaxis: GI Prophylaxis Pepcid iv q12h. DVT Prophylaxis -- SCDs Holding pharmacologic DVT prophylaxis given intracranial hemorrhage, EVD in place. Start once cleared by Neurosurgery Lines: 05/27 right IJ triple lumen catheter removed 06/06. Currently PIV Parker EVD Overall impression: Slow progress s/p SAH. Moderate improvement in neuro status. Possibly needs permanent shunt. Mike Rizvi MD Jun 17, 2016 13:02
[2016-06-17] MEDS: ENOXAPARIN SODIUM 40 MG/0.4 ML SYRINGE SQ SCH (17:00)
[2016-06-17] MEDS: SODIUM CHLORIDE 23.4% INJ 188 MEQ in SODIUM CHLOR 0.9% 1000 ML INJ 1,000 ML IV SCH (17:00)
[2016-06-17] MEDS: PRAVASTATIN SOD 40 MG TAB PO SCH (20:20)
[2016-06-18] VITALS (14 sets, daily range): BP systolic 130–175; BP diastolic 58–75; PULSE 78–89; RESP 16–19; TEMP 97.2–98.8; O2SAT 91–99
[2016-06-18] MEDS: niMODipine 30 MG CAP PO SCH ×6 (03:35→23:04)
[2016-06-18] MEDS: SODIUM CHLORIDE 23.4% INJ 188 MEQ in SODIUM CHLOR 0.9% 1000 ML INJ 1,000 ML IV SCH (03:35)
[2016-06-18] MEDS: SODIUM CHLOR 0.9% 1000 ML INJ 1,000 ML IV SCH ×2 (03:35→23:04)
[2016-06-18] MEDS: CHLORHEXIDINE GLUCONATE 2 % 1 PACK (2 CLOTHS) TOP SCH (03:36)
[2016-06-18 03:44] LABS: BICARBONATE 30.1 MEQ/L (21.0-32.0); POTASSIUM 3.4 MEQ/L (3.5-5.1)
--- NOTE | 2016-06-18 06:34 | RADRPT ---
EXAM DATE/TIME: 06/18/2016 06:12 [facility] COMPARISON: CT BRAIN W/O CONTRAST, May 31, 2016, 10:44. INDICATIONS : Assess hydrocephalus. RADIATION DOSE: 56.77 CTDIvol (mGy) MEDICAL HISTORY : Cardiovascular disease. Hypertension. SURGICAL HISTORY : None. ENCOUNTER: Subsequent ACUITY: 1 week PAIN SCALE: Non-responsive LOCATION: cranial TECHNIQUE: Multiple contiguous axial images were obtained of the head. Using automated exposure control and adj ustment of the mA and/or kV according to patient size, radiation dose was kept as low as reasonably a chievable to obtain optimal diagnostic quality images. FINDINGS: Current examination demonstrates decreased intraventricular hemorrhage layering in the posterior horn s. Subarachnoid hemorrhage noted previously is not seen on current study. A right frontal ventriculos suraj catheter is noted and the tip terminates at the midline in the expected location of the body of right lateral ventricle along the septum pellucidum. There is mild ventriculomegaly and patchy linear periventricular white matter disease. This is stable. No fractures. Left maxillary sinus and posteri or ethmoid fluid. CONCLUSION: Decreased intraventricular hemorrhage. Subarachnoid hemorrhage is no longer seen. Kuldip Nicolas MD on June 18, 2016 at 6:30 Board Certified Radiologist. This report was verified electronically.
[2016-06-18] MEDS: ARTIFICIAL TEARS OPTH SOLN 15 ML BTL EACH EYE SCH ×3 (09:00→18:23)
[2016-06-18] MEDS: SODIUM CHLORIDE 0.9% FLUSH 5 ML FLUSH IV FLUSH SCH ×2 (09:16→19:29)
[2016-06-18] MEDS: FOSPHENYTOIN SODIUM 100 MG PE/2 ML VIAL IV SCH ×2 (09:16→19:30)
[2016-06-18] MEDS: FAMOTIDINE 20 MG/2 ML VIAL IV PUSH SCH ×2 (09:16→19:29)
[2016-06-18] MEDS: levETIRAcetam 1000 MG INJ 100 ML IV SCH ×2 (09:17→19:29)
[2016-06-18] MEDS: SENNOSIDES SYRUP 8.8 MG/5 ML CUP PO/TUBE SCH ×2 (09:18→19:29)
[2016-06-18] MEDS: DOCUSATE SODIUM 100 MG/10 ML UDC G-TUBE SCH ×2 (09:18→19:29)
[2016-06-18] MEDS: CARVEDILOL 3.125 MG TAB PO SCH ×2 (09:18→19:29)
[2016-06-18] MEDS: POLYETHYLENE GLYCOL 17 GM PKG PO SCH ×2 (09:18→19:29)
[2016-06-18] MEDS: HYDROCHLOROTHIAZIDE 12.5 MG CAP PO SCH (09:18)
[2016-06-18] MEDS: INSULIN NovoLIN REGULAR SUPPLEMENTAL SCALE SQ SCH ×3 (12:00→23:04)
[2016-06-18] MEDS: LEVOFLOXACIN 750 MG PREMIX INJ 150 ML IV SCH (12:21)
--- NOTE | 2016-06-18 12:34 | HHI.NSPN ---
(Allison Mccullough) Note Status Status: Progress Note (Allison Mccullough) Interval History Interval History This is a 66 years old female was transferred to [facility] from [facility] for a subarachnoid hemorrhage. The patient and the was vacationing from [place]. They were on the train. Patient's states that around 2:00 this afternoon she suddenly developed severe headache and then vomited, and then had a syncopal episode. The train stopped. EMS was called. EMS personnel state that patient had altered status was able to follow commands and beginning without focal neurological deficit. No seizure activity. No tongue bitting. No tonic clonic movements. no incontinence of stool or urine. She was transported to [facility] in [place]. On the way to the hospital, she developed respiratory problem and patient was subsequently endotracheally intubated. She has history of atrial fibrillation and hypertension and was anticoagulated with Xarelto 20 mg daily. In addition she takes atorvastatin, HCTZ/ losartan, metoprolol. CT scan of the brain done at [facility] in [place] shows extensive subarachnoid and intraventricular hemorrhage with early obstructive hydrocephalus developing. She was placed given propofol and Cardene drip. Cardene drip and propofol was stopped secondary to hypotension on the way to the ED. Neurosurgical consultation was requested 05/28: intubated and sedated, s/p placement of ventriculostomy drain. CTA Brain neg for aneurysm, for cerebral angiography today, 05/29: seen this am during am round, withdrawing in the lower extremities, did not open eyes or follow commands for me, was reported to have followed with nursing. Cerebral angiography yesterday was neg for aneurysm. Then sergei Mario , patient having seizures, and posturing. ICPs has been 8-10, nursing reports EVD draining, CSF blood tinged. Transcranial doppler early this am negative for vasospasm 3/1: extends in uppers, withdraws in LEs 3/2: minimal withdrawals in the lower extremities, and extension. f/u CT Brain shows increased ventriculomegaly. CTA Head unremarkable for intracranial aneurysm. f/u EEG reports severe encephalopathy. ICPs at highest 8 overnight. 06/01: this morning slightly wiggled toes to command. ICPs below 5, EVD draining blood tinged CSF. 06/04: slightly opening eyes, EVD draining dark red CSF at 10 cm H20, ICPs at highest 8 overnight. 06/05: ICPs stable overnight, opening eyes. No reports of seizure like activities overnight. EVD continues to drain well. 06/06: cerebral angio completed yesterday, otherwise no neuro changes overnight. EVD draining, with stable ICPs. 06/07: opens eyes to pain stim, withdraws LE's, CSF dark red with stable ICPs 06/08: intubated, moderate eye opening, not tracking, not following commands. 06/11: eyes open, focuses, wiggled toes toe command. s/p intraarterial administration of verapamil for vasospasm 06/12: seen this morning during morning rounds, opens eyes, ICPs continues below 20. 06/13: mouthing words, moving upper extremities to commands, tracking more. 06/14: appears less awake and responsive today, EVD at 17 cm H20 with ICPs at highest 13. No recent TCDs. 06/15: More awake today, opens eyes and mouthing "I'm okay", reported she had followed command to right upper, and we true lower extremities to local stimuli , EVD @ 5 cmH20 06/17: EVD at 10 cm H20, mental status improving, awake, following commands. 06/18: EVD clamped since yesterday, f/u CT Brain this morning shows evidence of hydrocephalus. pt remains awake and alert. (Allison Mccullough) Labs, Micro, & Vital Signs Results Date Time Temp Pulse Resp B/P Pulse Ox O2 Delivery O2 Flow Rate FiO2 06/18/16 09:06 98 T-piece 6.00 28 06/18/16 06:00 88 06/18/16 04:00 82 06/18/16 04:00 98.2 82 19 130/58 91 06/18/16 02:00 84 06/18/16 00:00 82 06/18/16 00:00 98.4 82 19 142/64 96 06/17/16 22:00 98 06/17/16 20:47 98 T-piece 5.00 28 06/17/16 20:00 98.4 88 17 182/78 98 06/17/16 20:00 88 06/17/16 18:00 86 06/17/16 16:00 98.2 90 17 180/78 99 06/17/16 16:00 84 06/17/16 14:00 82 06/18/16 07:00 Intake Total 5805 ml Output Total 5343 ml Balance 462 ml Constitutional Vital Signs Date Time Temp Pulse Resp B/P Pulse Ox O2 Delivery O2 Flow Rate FiO2 06/18/16 09:06 98 T-piece 6.00 28 06/18/16 06:00 88 06/18/16 04:00 82 06/18/16 04:00 98.2 82 19 130/58 91 06/18/16 02:00 84 06/18/16 00:00 82 06/18/16 00:00 98.4 82 19 142/64 96 06/17/16 22:00 98 06/17/16 20:47 98 T-piece 5.00 28 06/17/16 20:00 98.4 88 17 182/78 98 06/17/16 20:00 88 06/17/16 18:00 86 06/17/16 16:00 98.2 90 17 180/78 99 06/17/16 16:00 84 06/17/16 14:00 82 06/18/16 07:00 Intake Total 5805 ml Output Total 5343 ml Balance 462 ml (Allison Mccullough) Review of Systems/Exam Exam Ms. Michaels awake, eyes open, following commands and mouthing words Neck: tracheostomy in place Right ventriculostomy drain reopened to 5 cm H20, ICPs <10. good CSF drainage appears clearer, Site is clean without evidence of infection. Cranial Nerves: Pupils 4 mm b/l Motor: wiggled b/l toes to commands, left > right, slightly moved right arm also Sensory: mild response to b/l LE Cerebellar: unable to assess due to her condition (Allison Mccullough) Medications Current Medications Current Medications Medications (Trade) Dose Ordered Sig/Jerry Route PRN Reason Start Time Stop Time Status Last Admin Dose Admin Propofol (Diprivan 1000 Mg/100ml Inj) 100 ml @ 0 mls/hr TITRATE IV 05/27/16 19:45 05/28/16 23:16 IV Flush (NS Flush) 2 ml UNSCH PRN IV FLUSH FLUSH AFTER USING IV ACCESS 05/27/16 20:45 05/27/16 22:30 IV Flush (NS Flush) 2 ml BID IV FLUSH 05/27/16 21:00 06/18/16 09:16 Acetaminophen (Tylenol) 650 mg Q6H PRN PO PAIN 1-10 AND/OR FEVER >101F 05/27/16 20:45 06/07/16 17:14 Famotidine (Pepcid Inj) 20 mg Q12HR IV PUSH 05/27/16 21:00 06/18/16 09:16 Artificial Tears (Tears Naturale Opth Soln) 1 drop TID EACH EYE 05/28/16 09:00 06/18/16 12:21 Ondansetron HCl (Zofran Inj) 4 mg Q6H PRN IV NAUSEA OR VOMITING 05/27/16 20:45 Docusate Sodium (Colace Liq) 100 mg Q12H G-TUBE 05/27/16 20:45 06/18/16 09:18 Miscellaneous Information 1 Q361D XX 05/27/16 20:45 05/27/16 20:45 Chlorhexidine Gluconate (Chlorhexidine 2% Cloth) 3 pack Taper DAILY@04 TOP 05/28/16 04:00 05/24/17 03:59 06/18/16 03:36 Chlorhexidine Gluconate 3 pack 3 pack UNSCH PRN TOP HYGIENIC CARE 05/27/16 20:45 Nicardipine HCl/ Sodium Chloride (Cardene Inj/NS 250 ml Inj) 260 ml @ 0 mls/hr TITRATE IV 05/27/16 21:00 06/09/16 15:00 Nimodipine (Nimotop) 60 mg Q4HR PO 05/28/16 00:00 06/18/16 12:19 Pravastatin Sodium 40 mg 40 mg HS PO 05/27/16 21:00 06/17/16 20:20 Levetriacetam 100 ml @ 400 mls/hr Q12HR IV 05/28/16 09:00 06/18/16 09:17 Potassium Chloride 100 ml @ 50 mls/hr Q2H PRN IV For Potassium 2.8 - 3.2 mEq/L 05/28/16 01:45 06/04/16 13:40 Potassium Chloride (KCl 20 Meq Premix Inj) 100 ml @ 50 mls/hr Q2H PRN IV For Potassium 2.8 - 3.2 mEq/L 05/28/16 01:45 06/15/16 11:40 Potassium Chloride 40 meq 40 meq UNSCH PRN PO/TUBE For Potassium 3.3 - 3.5 mEq/L 05/28/16 01:45 06/12/16 03:32 Potassium Chloride 100 ml @ 50 mls/hr Q2H PRN IV For Potassium 3.3 - 3.5 mEq/L 05/28/16 01:45 06/17/16 15:14 Magnesium Sulfate/ Sodium Chloride (Magnesium Sulfate Inj/NS Inj) 100 ml @ 50 mls/hr UNSCH PRN IV For Magnesium 0.9 - 1.1 mg/dL 05/28/16 01:45 Magnesium Oxide 800 mg 800 mg UNSCH PRN PO For Magnesium 1.2 - 1.6 mg/dL 05/28/16 01:45 Magnesium Sulfate/ Sodium Chloride (Magnesium Sulfate Inj/NS Inj) 100 ml @ 50 mls/hr UNSCH PRN IV For Magnesium 1.2 - 1.6 mg/dL 05/28/16 01:45 06/04/16 13:40 Potassium Phosphate 2000 mg 2,000 mg Q4H PRN PO For Phosphorus < 2.5 mg/dL 05/28/16 01:45 Sodium Phosphate/ Sodium Chloride (Sodium Phosphate Inj/NS 250 ml Inj) 250 ml @ 42 mls/hr UNSCH PRN IV For Phosphorus < 2.5 mg/dL 05/28/16 01:45 06/10/16 08:45 Potassium Chloride (KCl 40 Meq/30 ml Liq) 40 meq UNSCH PRN PO/TUBE SEE LABEL COMMENTS 05/28/16 01:45 06/03/16 05:31 Potassium Phosphate 2000 mg 2,000 mg UNSCH PRN PO/TUBE SEE LABEL COMMENTS 05/28/16 01:45 Potassium Phosphate/Sodium Chloride (Potassium Phosphate Inj/NS 250 ml Inj) 260 ml @ 42 mls/hr UNSCH PRN IV SEE LABEL COMMENTS 05/28/16 01:45 06/08/16 17:09 Dextrose (D50w (Vial) Inj) 25 ml UNSCH PRN IV PUSH HYPOGLYCEMIA-SEE COMMENTS 05/29/16 07:30 Insulin Human Regular (NovoLIN R SUPPLEMENTAL SCALE) 1 Q6HR SQ 05/29/16 12:00 06/17/16 05:57 Fosphenytoin Sodium (Cerebyx Inj) 100 mgpe Q12HR IV 06/02/16 09:00 06/18/16 09:16 Sennosides (Senna Liq) 8.8 mg BID PO/TUBE 06/07/16 09:00 06/18/16 09:18 Glycerin (Glycerin Adult Supp) 2 gm BID PRN RECTAL CONSTIPATION 06/07/16 09:00 Polyethylene Glycol (Miralax) 17 gm BID PO 06/08/16 21:00 06/18/16 09:18 Hydrochlorothiazide 12.5 mg 12.5 mg DAILY PO 06/10/16 09:00 06/18/16 09:18 Sodium Chloride 1,000 ml @ 100 mls/hr Q10H IV 06/10/16 20:00 06/18/16 03:35 Sodium Chloride/ Sodium Chloride (Sodium Chloride 23.4% Inj/NS 1000 ml Inj) 1,047 ml @ 30 mls/hr Q24H IV 06/11/16 17:00 06/18/16 03:35 Enoxaparin Sodium 40 mg 40 mg Q24H SQ 06/11/16 17:00 06/17/16 17:00 Levofloxacin/ Dextrose 150 ml @ 100 mls/hr Q24H IV 06/12/16 13:00 06/18/16 12:21 Norepinephrine Bitartrate/Sodium Chloride (Levophed Inj/NS 250 ml Inj) 250 ml @ 0 mls/hr TITRATE IV 06/14/16 23:15 06/15/16 23:24 Carvedilol (Coreg) 3.125 mg Q12HR PO 06/16/16 21:00 06/18/16 09:18 (Allison Mccullough) Medical Decision Making MDM Remarks 66 y/o female with subarachnoid hemorrhage suspected intracranial aneurysm, placement of ventriculostomy drain CTA Head x 2 negative for aneurysm, Cerebral angiography neg for aneurysm, repeat cerebral angio 06/05/16 again neg for intracranial aneurysm TCD and CTA Head 06/10 with vasospasm, s/p intra-arterial administration of verapamil (Allison Mccullough) Plan Plan Remarks follow up CT Brain shows evidence of hydrocephalus, EVD reopened to 5 cm H20, pt will require permanent shunt, OR tomorrow for 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 Continue CSF drainage via ventriculostomy. Wean ventriculostomy Respiratory. Continue mechanical ventilation in assist contyrol mode of mechanical ventilation, pulmonary toilette, nasotracheal suction, and breathing treatments with nebulizers. Hypertension As needed Cardene Continue daily PT and OT Nutrition. Continur tube feedings Renal. Continue to monitor closely urine output, BUN and creatinine Endocrine. Continue to Monitor serial Acu checks and SSI for tight control ID continue to monitor for signs of infection Continue Protonix for stress ulcer prophylaxis Continue Julio hose and SCD's for DVT prophylaxis. Lovenox The exam, history, and the medical decision-making described in the above note were completed with the assistance of the mid-level provider. I reviewed and agree with the findings presented. I attest that I had a [id number] encounter with the patient on the same day, and personally performed and documented my assessment and findings in the medical record. (Arcenio Mtz MD) Allison Mccullough Jun 18, 2016 12:34 Arcenio Mtz MD Jun 24, 2016 20:40
--- NOTE | 2016-06-18 12:37 | HHI.CCPN ---
Subjective Remarks/Hospital Course Hospital Course: 66 years old female was transferred to [facility] from [facility] in [place]. Patient and her was vacationing from [place]. They aware on the train while at around 2:00 patient started having severe headache and then vomited and then had a syncopal episode. Patient was transported to [facility] in [place]. On the way to the hospital, patient started having respiratory problem and patient was subsequently intubated. Patient has history of atrial fibrillation and hypertension and on Xarelto 20 mg daily, atorvastatin, HCTZ/ losartan, metoprolol. CT scan of the brain done at [facility] in [place] shows diffuse subarachnoid hemorrhage with intraventricular extension and early obstructive hydrocephalus developing. Dr. Mtz, neurosurgeon at [facility] was contacted and accepted transfer. 05/28: slight improvements, withdrawing to deep nailbed pressure. on cardene for hypertension. plan for angio today or tomorrow. 05/29: worsening neuro exam overnight. repeat head CT with effacement, slight compression of the brainstem. angiogram overnight without evidence of aneurysm or vasospasm. more hypotensive this morning on norepinephrine. flaccid x 4, no cough or gag. propofol turned off at 0600. 05/30: EEG with evidence of seizures. Keppra increased yesterday and Cerebryx loaded. this morning, on increasing vasopressor requirements. added phenylephrine on top of maximal levophed, vasopressin. echo with prelim hyperdynamic biventricular function. ICP stable. poor neurologic function. posturing in UEs. 05/31: vasopressors weaned overnight significantly, but remains on some support. repeat EEG improved with no evidence of ongoing ictal activity. ICP stable. this morning, no longer following commands in LEs, no longer posturing in upper extremities. discussed care with Dr. Mtz, will plan to go to CT/CTA brain to r /o vasospasm.06/01: CTA yesterday without evidence of vasospasm. TCDs negative today for vasospasm. still will intermittently follow commands in LEs, nothing in upper extremities. Na still very high, 160s. ICP well controlled. off vasopressors. 06/02: Na coming down slowly. TCDs pending for today. neuro exam stable. phenytoin level borderline high. 06/03: Tmax 100.4. Currently 99.1. Tolerating tube feeds at goal. Positive BM. Neuro exam remains stable. 3/6: Remains sedated, orally intubated on mechanical ventilation. Ventriculostomy in place. Cardene drip at 1 mg/h 06/05: Remains sedated, orally intubated on mechanical ventilation. Ventriculostomy in place. 06/06: AM laboratories currently pending. Afebrile. Noted cerebral angiogram without signs of vasospasm. 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 Dr. Mtz recommends per contains tracheostomy per RN. Tolerating tube feeding. 06/07: Tmax 99.5. Currently afebrile. Plan for cutaneous tracheostomy today. Ordered for PEG tube for a.m. Neurological unchanged with extension lower extremities flaccid upper extremities. 06/08: Tmax 100.8. This morning with acute episode acutely desaturated. Chest X-ray shows bilateral lower lobe infiltrates/pleural effusions. +600 cc past 24 hours. No bowel movement since 06/05. Status post PEG tube yesterday without complication. Subjective: 06/09: Afebrile. Desaturate yesterday requiring bronchoscopy. Thick white secretions noted throughout right in left lobes. Actually hard yellow secretions that coated the scope required multiple washings at end of ET tube probably causing desaturation. Currently down to 55%. Plan for tracheostomy today at 3 PM. 06/10 moderate vasospasm on TCD's on the right Lind[place]ard ratio 3.7, severe vasospasm on CTA 06/11: Eyes open spontaneously tracking intermittently following commands by wiggling toes. s/p intraarterial administration of verapamil for vasospasm 06/10. 06/12: Fresh pus draining from subcutaneous tissue at PEG insertion site on abdominal wall. Cultures sent, abx started. 06/13: Purulent PEG site drainage growing Staph and a GNR. Continue Vanc and PIP /KORTNEY. Site looks truck cleaner today. 06/14: Wound with MSSA and Serratia. Will narrow to levaquin. Leukocytosis has resolved. Less responsive today, will order TCDs. 06/15: Diuresis now, review specific gravity. May be DI. 06/16: No DI. Will hold ARB while we are trying to raise MAP. 06/17: Breathing comfortably on trach collar/T-piece set-up for 48 hours now. Afebrile and leukocytosis has resolved on levaquin. 06/18: Hydrocephalus on CT, consistent with her ventric challenges. 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 Objective Vital Signs Date Time Temp Pulse Resp B/P Pulse Ox O2 Delivery O2 Flow Rate FiO2 06/18/16 09:06 98 T-piece 6.00 28 06/18/16 06:00 88 06/18/16 04:00 98.2 19 130/58 Intake and Output 06/17/16 06/17/16 06/18/16 08:00 16:00 00:00 Intake Total 1465 ml 2199 ml 1616 ml Output Total 1865.0 ml 3268 ml 2075 ml Balance -400.0 ml -1069 ml -459 ml Result Diagram: 06/14/16 0823 06/18/16 0303 Imaging Last Impressions Transcranial Doppler Study Complete 06/08/16 0215 Signed Impressions: Service Date/Time: Wednesday, June 08, 2016 07:52 - CONCLUSION: There are no findings to indicate vasospasm. Lauro Lamb MD Liver Ultrasound 06/08/16 Signed Impressions: Service Date/Time: Wednesday, June 08, 2016 14:00 - CONCLUSION: Ultrasound appearance of the liver and surrounding structures within normal limits. Lauro Logan MD Chest X-Ray 06/08/16 Signed Impressions: Service Date/Time: Wednesday, June 08, 2016 16:02 - CONCLUSION: 1. No pneumothorax or other acute complication seen after bronchoscopy. 2. Mild consolidation and small effusions of both bases, stable on the left and slightly improved on the right. Lauro Logan MD CT Angiography 06/08/16 Signed Impressions: Service Date/Time: Wednesday, June 08, 2016 11:54 - CONCLUSION: 1. Bilateral pleural effusions with compressive atelectasis. 2. No pulmonary embolus. Lauro Logan MD Abdomen/Pelvis CT 06/08/16 Signed Impressions: Service Date/Time: Wednesday, June 08, 2016 11:54 - CONCLUSION: 1. There is mild distention of the colon but there are no findings to indicate bowel obstruction. A small volume of free fluid is present within the abdomen and pelvis. 2. Anasarca along with a presacral edema. 3. Small to moderate-sized bilateral pleural effusions with associated compressive atelectasis. Lauro Lamb MD Cerebral Arteriogram 06/05/16 0000 Signed Impressions: Service Date/Time: Sunday, June 05, 2016 00:00 - CONCLUSION: 1. No evidence of aneurysm 2. 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 I do not see a mass. Etiology for the hemorrhage is not apparent. Dillon Zaragoza MD FACR Brain MRI 06/01/16 0000 Signed Impressions: Service Date/Time: Wednesday, June 01, 2016 12:14 - CONCLUSION: 1. Intraventricular blood, negative for mass. Dillon Zaragoza MD FACR Head CTA 05/31/16 Signed Impressions: Service Date/Time: May 10:44 - CONCLUSION: 1. No evidence of vasospasm Brandon Herrera MD Head CT 05/31/16 Signed Impressions: Service Date/Time: May 10:44 - CONCLUSION: Extensive subarachnoid hemorrhage including significant hemorrhage in the foramen magnum similar to the 05/29/16 exam. The ventricles do appear to be larger today with significant intraventricular hemorrhage present. Ventriculostomy catheter in good position. David Spencer MD Objective Remarks GENERAL: 66 year old female. SKIN: Warm and dry. No rash HEAD: Incisions dry.. EYES: PERRL. 2 mm bilaterally. No injection or drainage. NECK: Supple, trachea midline. Tracheostomy site intact, clean. CARDIOVASCULAR: RRR. S1, S2 no sore. Without murmur. No JVD. RESPIRATORY: Clear with few secretions.. Acceptable excursions. No wheezing. GASTROINTESTINAL: Abdomen soft, non-tender, nondistended. PEG tube site clean. Active bowel sounds. MUSCULOSKELETAL: With 1+ lower extremity edema Neuro: Uses both arms spontaneously, weak withdrawals in her bilateral LEs. Eyes are spontaneously open. Does not track A/P Problem List: (1) Subarachnoid hemorrhage ICD Code: I60.9 Status: Acute (2) Atrial fibrillation ICD Code: I48.91 Status: Acute (3) Coagulopathy ICD Code: D68.9 Status: Acute (4) Respiratory failure ICD Code: J96.90 Status: Acute (5) Hypertension ICD Code: I10 Status: Acute Assessment and Plan Neuro/Psych: Spontaneous subarachnoid bleed with severe vasospasm Intracranial hypertension Malignant cerebral edema Seizures --CT head subarachnoid hemorrhage, MRI/A revealed no mass/source of bleeding --EEG 05/31 revealed moderate encephalopathy. No epileptiform activity q1h neuro checks Nimodipine 60 mg every 4 hours for 21 days Four-vessel angiogram 05/29 negative for aneurysm of vasospasm. No FMD - unable to access left vertebral artery off sedation, as long as ICPs are controlled --s/p 3% nacl. slowly normalizing Na, eventual goal Na 140 - 145. Today 137. start 2% at 30 ml per hour and reduce NS to 150 ml per hour --Keppra 1000 twice a day and Dilantin 100mg iv q12h. recheck phenytoin level 06/05 was 7.8. Recheck 06/10 --Dr. Mtz: neurosurgery --CT/CTA 05/31: no evidence of vasospasm. --Daily TCDs --Negative cerebral angio to confirm 06/06. - 06/10 severe vasospasm in the most right cerebral arteries. Status post intra- arterial verapamil treatment by IR 06/10. Repeat TCD - HHH therapy with a systolic blood pressure goal 160-180 - Restart leophed to keep MAP elevated. MAP acceptable. Respiratory: Acute Hypoxic and hypercarbic respiratory failure --PRVC ventilation 14/500/1/5/55 Vent bundle --Duo nebs every 6 hours As needed bronchodilator therapy Head of bed elevated Wean FiO2 for goal SPO2 greater than 92% -CTA chest negative for PE. Positive bilateral lower lobe atelectasis and small to moderate bilateral pleural effusions Cardiovascular: Severe vasoplegia/Distributive Shock- resolved History of hypertension Dyslipidemia History fibrillation/chronic Off vasopressors. - severe vasospasm. Target systolic blood pressure 160-180. Remains spontaneously on this range without vasopressors Nimodipine 60 mg every 4 21 days - Pravachol -Home medications are losartan/HCTZ 100/12.5 daily and metoprolol 25 mg twice a day. Hold all BP meds -Pravachol 40 mg for vasospasm prevention -Echocardiogram 05/31 revealed EF 65%. Moderate TR. Renal: Parker for strict I's and O's -- Strict I/Os Avoid hypovolemia FEN/GI: Hypernatremia - resolving Acute protein calorie malnutrition- mild Hypokalemia Maintenance fluids normal saline. Avoid hypovolemia tube feeds, Jevity 1.5, goal 50 cc an hour -Pepcid twice a day for GI prophylaxis -Colace/Senokot for bowel regimen ICU electrolyte protocol Daily BMP Heme/ID: Coagulopathy secondary to Xarelto anticoagulation use for atrial fibrillation- resolved. Leukocytosis Daily CBC Status post K Centra Does not meet transfusion triggers at this time --holding Eliquis given SAH. Endocrine: Hyperglycemia of critical illness -- SSI, every 6 hours, medium scale PEG site infection -Culture sent -Azactam, Levaquin, Vanc started 06/12 -> narrow to levaquin. Prophylaxis: GI Prophylaxis Pepcid iv q12h. DVT Prophylaxis -- SCDs Holding pharmacologic DVT prophylaxis given intracranial hemorrhage, EVD in place. Start once cleared by Neurosurgery Lines: 05/27 right IJ triple lumen catheter removed 06/06. Currently PIV Parker EVD Overall impression: Slow progress s/p SAH. Moderate improvement in neuro status. Needs permanent shunt to reduce ICP. Arrangements made. Mike Rizvi MD Jun 18, 2016 12:37
[2016-06-18] MEDS: PRAVASTATIN SOD 40 MG TAB PO SCH (19:29)
[2016-06-19] VITALS (12 sets, daily range): BP systolic 143–170; BP diastolic 63–79; PULSE 74–92; RESP 13–19; TEMP 97.2–97.8; O2SAT 94–99
[2016-06-19] MEDS: NOREPINEPHRINE INJ 4 MG in SODIUM CHLOR 0.9% 250 ML INJ 246 ML IV SCH (01:38)
[2016-06-19] MEDS: niMODipine 30 MG CAP PO SCH ×5 (03:39→19:23)
[2016-06-19] MEDS: CHLORHEXIDINE GLUCONATE 2 % 1 PACK (2 CLOTHS) TOP SCH (03:40)
[2016-06-19] MEDS: INSULIN NovoLIN REGULAR SUPPLEMENTAL SCALE SQ SCH ×3 (06:00→18:00)
[2016-06-19] MEDS: POLYETHYLENE GLYCOL 17 GM PKG PO SCH ×2 (07:29→19:22)
[2016-06-19] MEDS: DOCUSATE SODIUM 100 MG/10 ML UDC G-TUBE SCH ×2 (07:29→19:23)
[2016-06-19] MEDS: SENNOSIDES SYRUP 8.8 MG/5 ML CUP PO/TUBE SCH ×2 (07:30→19:24)
[2016-06-19] MEDS: HYDROCHLOROTHIAZIDE 12.5 MG CAP PO SCH (07:32)
[2016-06-19] MEDS: SODIUM CHLORIDE 0.9% FLUSH 5 ML FLUSH IV FLUSH SCH ×2 (07:53→19:22)
[2016-06-19] MEDS: levETIRAcetam 1000 MG INJ 100 ML IV SCH ×2 (07:53→19:21)
[2016-06-19] MEDS: FAMOTIDINE 20 MG/2 ML VIAL IV PUSH SCH ×2 (07:53→19:24)
[2016-06-19] MEDS: CARVEDILOL 3.125 MG TAB PO SCH ×2 (07:53→19:24)
[2016-06-19] MEDS: SODIUM CHLOR 0.9% 1000 ML INJ 1,000 ML IV SCH ×2 (07:54→13:40)
[2016-06-19] MEDS: FOSPHENYTOIN SODIUM 100 MG PE/2 ML VIAL IV SCH ×2 (07:54→19:24)
[2016-06-19] MEDS: ARTIFICIAL TEARS OPTH SOLN 15 ML BTL EACH EYE SCH ×3 (07:55→18:00)
[2016-06-19 09:28] LABS: BICARBONATE 28.9 MEQ/L (21.0-32.0); POTASSIUM 3.3 MEQ/L (3.5-5.1)
--- NOTE | 2016-06-19 11:29 | HHI.CCPN ---
Subjective Remarks/Hospital Course Hospital Course: 66 years old female was transferred to [facility] from [facility] in [place]. Patient and her was vacationing from [place]. They aware on the train while at around 2:00 patient started having severe headache and then vomited and then had a syncopal episode. Patient was transported to [facility] in [place]. On the way to the hospital, patient started having respiratory problem and patient was subsequently intubated. Patient has history of atrial fibrillation and hypertension and on Xarelto 20 mg daily, atorvastatin, HCTZ/ losartan, metoprolol. CT scan of the brain done at [facility] in [place] shows diffuse subarachnoid hemorrhage with intraventricular extension and early obstructive hydrocephalus developing. Dr. Mtz, neurosurgeon at [place] was contacted and accepted transfer. 05/28: slight improvements, withdrawing to deep nailbed pressure. on cardene for hypertension. plan for angio today or tomorrow. 05/29: worsening neuro exam overnight. repeat head CT with effacement, slight compression of the brainstem. angiogram overnight without evidence of aneurysm or vasospasm. more hypotensive this morning on norepinephrine. flaccid x 4, no cough or gag. propofol turned off at 0600. 05/30: EEG with evidence of seizures. Keppra increased yesterday and Cerebryx loaded. this morning, on increasing vasopressor requirements. added phenylephrine on top of maximal levophed, vasopressin. echo with prelim hyperdynamic biventricular function. ICP stable. poor neurologic function. posturing in UEs. 05/31: vasopressors weaned overnight significantly, but remains on some support. repeat EEG improved with no evidence of ongoing ictal activity. ICP stable. this morning, no longer following commands in LEs, no longer posturing in upper extremities. discussed care with Dr. Mtz, will plan to go to CT/CTA brain to r /o vasospasm.06/01: CTA yesterday without evidence of vasospasm. TCDs negative today for vasospasm. still will intermittently follow commands in LEs, nothing in upper extremities. Na still very high, 160s. ICP well controlled. off vasopressors. 06/02: Na coming down slowly. TCDs pending for today. neuro exam stable. phenytoin level borderline high. 06/03: Tmax 100.4. Currently 99.1. Tolerating tube feeds at goal. Positive BM. Neuro exam remains stable. 3/6: Remains sedated, orally intubated on mechanical ventilation. Ventriculostomy in place. Cardene drip at 1 mg/h 06/05: Remains sedated, orally intubated on mechanical ventilation. Ventriculostomy in place. 06/06: AM laboratories currently pending. Afebrile. Noted cerebral angiogram without signs of vasospasm. 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 Dr. Mtz recommends per contains tracheostomy per RN. Tolerating tube feeding. 06/07: Tmax 99.5. Currently afebrile. Plan for cutaneous tracheostomy today. Ordered for PEG tube for a.m. Neurological unchanged with extension lower extremities flaccid upper extremities. 06/08: Tmax 100.8. This morning with acute episode acutely desaturated. Chest X-ray shows bilateral lower lobe infiltrates/pleural effusions. +600 cc past 24 hours. No bowel movement since 06/05. Status post PEG tube yesterday without complication. Subjective: 06/09: Afebrile. Desaturate yesterday requiring bronchoscopy. Thick white secretions noted throughout right in left lobes. Actually hard yellow secretions that coated the scope required multiple washings at end of ET tube probably causing desaturation. Currently down to 55%. Plan for tracheostomy today at 3 PM. 06/10 moderate vasospasm on TCD's on the right Lindegaard ratio 3.7, severe vasospasm on CTA 06/11: Eyes open spontaneously tracking intermittently following commands by wiggling toes. s/p intraarterial administration of verapamil for vasospasm 06/10. 06/12: Fresh pus draining from subcutaneous tissue at PEG insertion site on abdominal wall. Cultures sent, abx started. 06/13: Purulent PEG site drainage growing Staph and a GNR. Continue Vanc and PIP /KORTNEY. Site looks glass cleaner today. 06/14: Wound with MSSA and Serratia. Will narrow to levaquin. Leukocytosis has resolved. Less responsive today, will order TCDs. 06/15: Diuresis now, review specific gravity. May be DI. 06/16: No DI. Will hold ARB while we are trying to raise MAP. 06/17: Breathing comfortably on trach collar/T-piece set-up for 48 hours now. Afebrile and leukocytosis has resolved on levaquin. 06/18: Hydrocephalus on CT, consistent with her ventric challenges. 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 06/19: Breathing comfortably on trach collar. Objective Vital Signs Date Time Temp Pulse Resp B/P Pulse Ox O2 Delivery O2 Flow Rate FiO2 06/19/16 06:00 89 06/19/16 04:00 97.2 19 143/63 94 06/18/16 20:46 T-piece 6.00 28 Intake and Output 06/18/16 06/18/16 06/19/16 08:00 16:00 00:00 Intake Total 1990 ml 1446 ml 1468 ml Output Total 0 ml 2773 ml 2273 ml Balance 1990 ml -1327 ml -805 ml Result Diagram: 06/19/1624 Imaging Last Impressions Transcranial Doppler Study Complete 06/08/165 Signed Impressions: Service Date/Time: Wednesday, June 08, 2016 07:52 - CONCLUSION: There are no findings to indicate vasospasm. Lauro Lamb MD Liver Ultrasound 06/08/16 Signed Impressions: Service Date/Time: Wednesday, June 08, 2016 14:00 - CONCLUSION: Ultrasound appearance of the liver and surrounding structures within normal limits. Lauro Logan MD Chest X-Ray 06/08/16 Signed Impressions: Service Date/Time: Wednesday, June 08, 2016 16:02 - CONCLUSION: 1. No pneumothorax or other acute complication seen after bronchoscopy. 2. Mild consolidation and small effusions of both bases, stable on the left and slightly improved on the right. Lauro Logan MD CT Angiography 06/08/16 Signed Impressions: Service Date/Time: Wednesday, June 08, 2016 11:54 - CONCLUSION: 1. Bilateral pleural effusions with compressive atelectasis. 2. No pulmonary embolus. Lauro Logan MD Abdomen/Pelvis CT 06/08/16 Signed Impressions: Service Date/Time: Wednesday, June 08, 2016 11:54 - CONCLUSION: 1. There is mild distention of the colon but there are no findings to indicate bowel obstruction. A small volume of free fluid is present within the abdomen and pelvis. 2. Anasarca along with a presacral edema. 3. Small to moderate-sized bilateral pleural effusions with associated compressive atelectasis. Lauro Lamb MD Cerebral Arteriogram 06/05/16 0000 Signed Impressions: Service Date/Time: Sunday, June 05, 2016 00:00 - CONCLUSION: 1. No evidence of aneurysm 2. 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 I do not see a mass. Etiology for the hemorrhage is not apparent. Dillon Zaragoza MD FACR Brain MRI 06/01/16 0000 Signed Impressions: Service Date/Time: Wednesday, June 01, 2016 12:14 - CONCLUSION: 1. Intraventricular blood, negative for mass. Dillon Zaragoza MD FACR Head CTA 05/31/16 0000 Signed Impressions: Service Date/Time: May 10:44 - CONCLUSION: 1. No evidence of vasospasm Brandon Herrera MD Head CT 05/31/16 0000 Signed Impressions: Service Date/Time: May 10:44 - CONCLUSION: Extensive subarachnoid hemorrhage including significant hemorrhage in the foramen magnum similar to the 05/29/16 exam. The ventricles do appear to be larger today with significant intraventricular hemorrhage present. Ventriculostomy catheter in good position. David Spencer MD Objective Remarks GENERAL: 66 year old female. SKIN: Warm and dry. No rash HEAD: Incisions dry. EYES: PERRL. 2 mm bilaterally. No injection or drainage. NECK: Supple, trachea midline. Tracheostomy site intact, clean. CARDIOVASCULAR: RRR. S1, S2 no sore. Without murmur. No JVD. RESPIRATORY: Clear with few secretions.. Acceptable excursions. No wheezing. GASTROINTESTINAL: Abdomen soft, non-tender, nondistended. PEG tube site clean. Active bowel sounds. MUSCULOSKELETAL: With Tr + lower extremity edema Neuro: Uses both arms spontaneously, weak withdrawals in her bilateral LEs. Eyes are spontaneously open. A/P Problem List: (1) Subarachnoid hemorrhage ICD Code: I60.9 Status: Acute (2) Atrial fibrillation ICD Code: I48.91 Status: Acute (3) Coagulopathy ICD Code: D68.9 Status: Acute (4) Respiratory failure ICD Code: J96.90 Status: Acute (5) Hypertension ICD Code: I10 Status: Acute Assessment and Plan Neuro/Psych: Spontaneous subarachnoid bleed with severe vasospasm Intracranial hypertension Malignant cerebral edema Seizures --CT head subarachnoid hemorrhage, MRI/A revealed no mass/source of bleeding --EEG 05/31 revealed moderate encephalopathy. No epileptiform activity q1h neuro checks Nimodipine 60 mg every 4 hours for 21 days Four-vessel angiogram 05/29 negative for aneurysm of vasospasm. No FMD - unable to access left vertebral artery off sedation, as long as ICPs are controlled --s/p 3% nacl. slowly normalizing Na, eventual goal Na 140 - 145. Today 137. start 2% at 30 ml per hour and reduce NS to 150 ml per hour --Keppra 1000 twice a day and Dilantin 100mg iv q12h. recheck phenytoin level 06/05 was 7.8. Recheck 06/10 --Dr. Mtz: neurosurgery --CT/CTA 05/31: no evidence of vasospasm. --Daily TCDs --Negative cerebral angio to confirm 06/06. - 06/10 severe vasospasm in the most right cerebral arteries. Status post intra- arterial verapamil treatment by IR 06/10. Repeat TCD - HHH therapy with a systolic blood pressure goal 160-180 - Restart leophed to keep MAP elevated. - MAP acceptable. Respiratory: Acute Hypoxic and hypercarbic respiratory failure --PRVC ventilation 14/500/1/5/55 Vent bundle --Duo nebs every 6 hours As needed bronchodilator therapy Head of bed elevated Wean FiO2 for goal SPO2 greater than 92% -CTA chest negative for PE. Positive bilateral lower lobe atelectasis and small to moderate bilateral pleural effusions Cardiovascular: Severe vasoplegia/Distributive Shock- resolved History of hypertension Dyslipidemia History fibrillation/chronic Off vasopressors. - severe vasospasm. Target systolic blood pressure 160-180. Remains spontaneously on this range without vasopressors Nimodipine 60 mg every 4 21 days - Pravachol -Home medications are losartan/HCTZ 100/12.5 daily and metoprolol 25 mg twice a day. Hold all BP meds -Pravachol 40 mg for vasospasm prevention -Echocardiogram 05/31 revealed EF 65%. Moderate TR. Renal: Parker for strict I's and O's -- Strict I/Os Avoid hypovolemia FEN/GI: Hypernatremia - resolving Acute protein calorie malnutrition- mild Hypokalemia Maintenance fluids normal saline. Avoid hypovolemia tube feeds, Jevity 1.5, goal 50 cc an hour -Pepcid twice a day for GI prophylaxis -Colace/Senokot for bowel regimen ICU electrolyte protocol Daily BMP Heme/ID: Coagulopathy secondary to Xarelto anticoagulation use for atrial fibrillation- resolved. Leukocytosis Daily CBC Status post K Centra Does not meet transfusion triggers at this time --holding Eliquis given SAH. Endocrine: Hyperglycemia of critical illness -- SSI, every 6 hours, medium scale PEG site infection -Culture sent -Azactam, Levaquin, Vanc started 06/12 -> narrow to levaquin. Prophylaxis: GI Prophylaxis Pepcid iv q12h. DVT Prophylaxis -- SCDs Holding pharmacologic DVT prophylaxis given intracranial hemorrhage, EVD in place. Start once cleared by Neurosurgery Lines: 05/27 right IJ triple lumen catheter removed 06/06. Currently PIV Parker EVD Overall impression: Slow progress s/p SAH but improved after ventric challenge reversed. Needs permanent shunt to reduce ICP -> today in OR planned Mike Rizvi MD Jun 19, 2016 11:28
[2016-06-19] MEDS: LEVOFLOXACIN 750 MG PREMIX INJ 150 ML IV SCH (11:49)
[2016-06-19] MEDS ORDERED: SODIUM CHLOR 0.9% 250 ML INJ 250 ML IV ONE (12:00)
[2016-06-19] MEDS ORDERED: LACTATED RINGER'S 1000 ML INJ 1,000 ML IV ONE (12:00)
[2016-06-19] MEDS ORDERED: ONDANSETRON HCL 4 MG/2 ML VIAL IV PUSH ONE (12:00)
[2016-06-19] MEDS ORDERED: PROPOFOL 200 MG/20 ML AMP IV ONE (12:00)
[2016-06-19] MEDS ORDERED: PHENYLEPHRINE HCL 10 MG/ML VIAL IV ONE (12:00)
[2016-06-19] MEDS ORDERED: VANCOMYCIN HCL 1000 MG VIAL ONE (14:30)
[2016-06-19] MEDS ORDERED: ceFAZolin 2 GM PREMIX 50 ML ONE (14:30)
[2016-06-19] MEDS ORDERED: LIDOCAINE 1%/EPINEPHrine 1:100,000 SOLN 30 ML VIAL ONE (14:30)
[2016-06-19] MEDS ORDERED: THROMBIN (TOPICAL) 5,000 UNIT VIAL ONE (14:30)
[2016-06-19] MEDS ORDERED: GELFOAM SIZE 100 ONE (14:30)
[2016-06-19] MEDS ORDERED: GENTAMICIN SULFATE 80 MG/2 ML VIAL ONE (14:33)
[2016-06-19] MEDS: SODIUM CHLORIDE 23.4% INJ 188 MEQ in SODIUM CHLOR 0.9% 1000 ML INJ 1,000 ML IV SCH (17:00)
[2016-06-19] MEDS ORDERED: SUGAMMADEX SODIUM 200 MG/2 ML VIAL IV PUSH ONE ×2 (17:12)
[2016-06-19] MEDS: NS + KCL 20 MEQ INJ 1,000 ML IV SCH (17:26)
[2016-06-19] MEDS ORDERED: MORPHINE SULFATE 4 MG/ML INJ IV PUSH PRN ×2 (17:30)
[2016-06-19] MEDS ORDERED: SODIUM CHLORIDE 0.9% FLUSH 5 ML FLUSH IVF PRN (17:30)
[2016-06-19] MEDS ORDERED: ACETAMINOPHEN/HYDROcodone 325 MG/10 MG TAB PO PRN ×2 (17:30)
[2016-06-19] MEDS ORDERED: ACETAMINOPHEN 325 MG TAB PO PRN (17:30)
--- NOTE | 2016-06-19 17:32 | PD.OP ---
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 INDICATIONS FOR PROCEDURE: Ms Michaels is a 66 with histody of SAH who presented with progressive hydrocephalus. A ventriculoperitoneal shunt was indicated The [id number] details of the procedure, its indications, alternatives, risks , and potential complications of the surgery were fully discussed with the patient and her . He fully understood. All his questions were answered. No guarantees were given. He voiced requesting the surgery and signed informed consent.He was offered the alternative of continuing nonsurgical treatment. DETAILS OF THE SURGICAL PROCEDURE:~ After the induction of general anesthesia, endotracheal intubation was performed. A Parker catheter, bilateral BENY hose and sequential compression devices were placed and kept throughout the procedure. The patient was positioned supine on a 30-80 table with the head over a gel doughnut. All pressure points were carefully padded with eggcrate mattress. The left frontotemporal parietal area was shaved prepped and draped in the usual sterile fashion, as well as the neck, chest and abdomen. A small incision was made in the patient's left upper quadrant with a #10 blade and the dissection was carried out through the subcutaneous tissue and Deion's fascia. The rectus sheath was carefully opened with Metzenbaum scissors and the rectus muscles were split along its fibers. The posterior rectus sheath was elevated and carefully opened. The peritoneum was elevated with mosquitoes and opened in the standard fashion. The peritoneal cavity was visualized and exposed. A pursestring suture was placed around the peritoneal opening. Using a tunneler a subcutaneous tunnel was created connecting the abdominal incision with the planned head incision. A small incision was made in the left frontal area and a self-retaining retractor was placed in the incision. An entry point for the catheter was selected 90 mm posterior to the supraorbital rim and 25 mm lateral to the midline. A Midas Gregory was used to create the daquan hole. The dura was coagulated with the bipolar in a cruciform fashion. A peritoneal catheter was placed in the subcutaneous tunnel previously created and a pocket was created underneath the galea for placement of the valve. A [employer] programmable valve has calibrated at a pressure of 120 mmHg and flushed according to the aviation electronic warfare operator's instructions. The valve was secured to the proximal end of the peritoneal catheter using a 2-0 silk. Then, a ventricular catheter was advanced into the ventricular system. A good flow of cerebrospinal fluid was obtained.~ The catheter was connected to the valve and the connection secured with a 2-0 silk. Cerebrospinal fluid was noted to drip through the distal end of the peritoneal catheter. The peritoneal catheter was placed in the peritoneal cavity under direct visualization. The pursestring suture was carefully adjusted with special care not to strangulate the catheter. The rectus sheath was closed using interrupted 2-0 Vicryl suture. The Deion's fascia was approximated with 3-0 Vicryl, and the subcutaneous with 3-0 Vicryl. The skin was closed with running subcuticular 4-0 Vicryl in the abdomen. The skin incision was closed using interrupted 3-0 Vicryl for the galea and cséar to the skin. At the end of the procedure, the sponge, needle and instrument counts were all correct. The estimated blood was less than 50 cc. No blood transfusion was given. No intraoperative complications occurred. The patient received preoperative prophylactic antibiotics. The patient was then extubated and transferred to the recovery room in stable condition. Arcenio Mtz MD Jun 19, 2016 17:32
[2016-06-19] MEDS ORDERED: MIDAZOLAM HCL 2 MG/2 ML VIAL ONE (17:49)
[2016-06-19] MEDS ORDERED: fentaNYL CITRATE 250 MCG/5 ML AMP ONE (17:49)
[2016-06-19] MEDS ORDERED: *morphine SULFATE 8 MG/ML PERIprocedure ONLY ONE (17:55)
[2016-06-19] MEDS: PRAVASTATIN SOD 40 MG TAB PO SCH (19:21)
[2016-06-19 20:41] LABS: GROSS BLOOD TUBE #1 1+ (0); SUPERNATE COLOR TUBE #1 SLIGHTLY XANTHOCHROM (CLEAR)
[2016-06-19 20:42] LABS: CSF LYMPHOCYTES 55 %; CSF MONOCYTES 9 %; CSF NEUTROPHILS 36 %; WBC TUBE #1 89 /MM3 (0-10)
[2016-06-19] MEDS ORDERED: SODIUM CHLORIDE 0.9% FLUSH 5 ML FLUSH IVF SCH (21:00)
[2016-06-19] MEDS: ceFAZolin 2 GM PREMIX 50 ML IV SCH (21:29)
[2016-06-20] VITALS (14 sets, daily range): BP systolic 155–179; BP diastolic 70–81; PULSE 70–100; RESP 12–27; TEMP 94.3–98.3; O2SAT 94–100
[2016-06-20] MEDS: niMODipine 30 MG CAP PO SCH ×3 (00:27→08:22)
[2016-06-20] MEDS: CHLORHEXIDINE GLUCONATE 2 % 1 PACK (2 CLOTHS) TOP SCH (03:03)
[2016-06-20] MEDS: NS + KCL 20 MEQ INJ 1,000 ML IV SCH ×3 (03:03→23:49)
[2016-06-20 04:36] LABS: BICARBONATE 28.2 MEQ/L (21.0-32.0); POTASSIUM 3.5 MEQ/L (3.5-5.1)
[2016-06-20] MEDS: INSULIN NovoLIN REGULAR SUPPLEMENTAL SCALE SQ SCH ×4 (05:08→17:29)
[2016-06-20] MEDS: ceFAZolin 2 GM PREMIX 50 ML IV SCH ×2 (05:55→13:45)
--- NOTE | 2016-06-20 06:19 | RADRPT ---
EXAM DATE/TIME: 06/20/2016 05:34 [facility] COMPARISON: CT BRAIN W/O CONTRAST, June 18, 2016, 6:12. INDICATIONS : Evaluate placement of AWNING HANGER SUPERVISOR shunt. RADIATION DOSE: 49.74 CTDIvol (mGy) MEDICAL HISTORY : Cardiovascular disease. Hypertension. SURGICAL HISTORY : None. ENCOUNTER: Initial ACUITY: 2 days PAIN SCALE: 0/10 LOCATION: cranial TECHNIQUE: Multiple contiguous axial images were obtained of the head. Using automated exposure control and adj ustment of the mA and/or kV according to patient size, radiation dose was kept as low as reasonably a chievable to obtain optimal diagnostic quality images. FINDINGS: Left frontal approach ventriculostomy catheter identified the distal tip terminating in the third jorge alberto tricle. Intraventricular hemorrhage is seen layering in the posterior horns. There is an air-fluid le harsh in the left maxillary sinus and left ethmoid opacification. The right frontal ventriculostomy cat heter has been removed. Small amount of pneumocephalus is seen in the left frontal region. CONCLUSION: Left frontal ventriculostomy catheter placement as described above with a small amount of pneumocepha florinda now seen. Intraventricular blood is stable. Kuldip Nicolas MD on June 20, 2016 at 6:16 Board Certified Radiologist. This report was verified electronically.
[2016-06-20] MEDS: DOCUSATE SODIUM 100 MG/10 ML UDC G-TUBE SCH ×2 (07:49→20:27)
[2016-06-20] MEDS: SENNOSIDES SYRUP 8.8 MG/5 ML CUP PO/TUBE SCH ×2 (07:50→20:27)
[2016-06-20] MEDS: POLYETHYLENE GLYCOL 17 GM PKG PO SCH ×2 (07:50→20:27)
[2016-06-20] MEDS: levETIRAcetam 1000 MG INJ 100 ML IV SCH (08:22)
[2016-06-20] MEDS: HYDROCHLOROTHIAZIDE 12.5 MG CAP PO SCH (08:23)
[2016-06-20] MEDS: CARVEDILOL 3.125 MG TAB PO SCH ×2 (08:23→20:24)
[2016-06-20] MEDS: SODIUM CHLORIDE 0.9% FLUSH 5 ML FLUSH IV FLUSH SCH ×2 (08:23→20:25)
[2016-06-20] MEDS: ARTIFICIAL TEARS OPTH SOLN 15 ML BTL EACH EYE SCH ×3 (08:24→17:29)
[2016-06-20] MEDS: FOSPHENYTOIN SODIUM 100 MG PE/2 ML VIAL IV SCH ×2 (08:24→20:25)
[2016-06-20] MEDS: POTASSIUM CHLOR 20 MEQ PREMIX 100 ML IV PRN ×2 (08:29→12:05)
[2016-06-20] MEDS ORDERED: PANTOPRAZOLE SODIUM 40 MG VIAL IVP SCH (09:00)
--- NOTE | 2016-06-20 09:00 | HHI.CCPN ---
Subjective Remarks/Hospital Course Hospital Course: 66 years old female was transferred to [facility] from [facility] in [place]. Patient and her was vacationing from [place]. They aware on the train while at around 2:00 patient started having severe headache and then vomited and then had a syncopal episode. Patient was transported to [facility] in [place]. On the way to the hospital, patient started having respiratory problem and patient was subsequently intubated. Patient has history of atrial fibrillation and hypertension and on Xarelto 20 mg daily, atorvastatin, HCTZ/ losartan, metoprolol. CT scan of the brain done at [facility] in [place] shows diffuse subarachnoid hemorrhage with intraventricular extension and early obstructive hydrocephalus developing. Dr. Mtz, neurosurgeon at [place] was contacted and accepted transfer. 05/28: slight improvements, withdrawing to deep nailbed pressure. on cardene for hypertension. plan for angio today or tomorrow. 05/29: worsening neuro exam overnight. repeat head CT with effacement, slight compression of the brainstem. angiogram overnight without evidence of aneurysm or vasospasm. more hypotensive this morning on norepinephrine. flaccid x 4, no cough or gag. propofol turned off at 0600. 05/30: EEG with evidence of seizures. Keppra increased yesterday and Cerebryx loaded. this morning, on increasing vasopressor requirements. added phenylephrine on top of maximal levophed, vasopressin. echo with prelim hyperdynamic biventricular function. ICP stable. poor neurologic function. posturing in UEs. 05/31: vasopressors weaned overnight significantly, but remains on some support. repeat EEG improved with no evidence of ongoing ictal activity. ICP stable. this morning, no longer following commands in LEs, no longer posturing in upper extremities. discussed care with Dr. Mtz, will plan to go to CT/CTA brain to r /o vasospasm.06/01: CTA yesterday without evidence of vasospasm. TCDs negative today for vasospasm. still will intermittently follow commands in LEs, nothing in upper extremities. Na still very high, 160s. ICP well controlled. off vasopressors. 06/02: Na coming down slowly. TCDs pending for today. neuro exam stable. phenytoin level borderline high. 06/03: Tmax 100.4. Currently 99.1. Tolerating tube feeds at goal. Positive BM. Neuro exam remains stable. 3/6: Remains sedated, orally intubated on mechanical ventilation. Ventriculostomy in place. Cardene drip at 1 mg/h 06/05: Remains sedated, orally intubated on mechanical ventilation. Ventriculostomy in place. 06/06: AM laboratories currently pending. Afebrile. Noted cerebral angiogram without signs of vasospasm. 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 Dr. Mtz recommends per contains tracheostomy per RN. Tolerating tube feeding. 06/07: Tmax 99.5. Currently afebrile. Plan for cutaneous tracheostomy today. Ordered for PEG tube for a.m. Neurological unchanged with extension lower extremities flaccid upper extremities. 06/08: Tmax 100.8. This morning with acute episode acutely desaturated. Chest X-ray shows bilateral lower lobe infiltrates/pleural effusions. +600 cc past 24 hours. No bowel movement since 06/05. Status post PEG tube yesterday without complication. 06/09: Afebrile. Desaturate yesterday requiring bronchoscopy. Thick white secretions noted throughout right in left lobes. Actually hard yellow secretions that coated the scope required multiple washings at end of ET tube probably causing desaturation. Currently down to 55%. Plan for tracheostomy today at 3 PM. 06/10 moderate vasospasm on TCD's on the right [place]ard ratio 3.7, severe vasospasm on CTA 06/11: Eyes open spontaneously tracking intermittently following commands by wiggling toes. s/p intraarterial administration of verapamil for vasospasm 06/10. 06/12: Fresh pus draining from subcutaneous tissue at PEG insertion site on abdominal wall. Cultures sent, abx started. 06/13: Purulent PEG site drainage growing Staph and a GNR. Continue Vanc and PIP /KORTNEY. Site looks stock sheets cleaner inspector today. 06/14: Wound with MSSA and Serratia. Will narrow to levaquin. Leukocytosis has resolved. Less responsive today, will order TCDs. 06/15: Diuresis now, review specific gravity. May be DI. 06/16: No DI. Will hold ARB while we are trying to raise MAP. 06/17: Breathing comfortably on trach collar/T-piece set-up for 48 hours now. Afebrile and leukocytosis has resolved on levaquin. 06/18: Hydrocephalus on CT, consistent with her ventric challenges. NS to insert [employer] shunt. 06/19: Breathing comfortably on trach collar. Subjective 06/20: Status post right [employer] shunt yesterday. CURRENT TEMPERATURE 95. Awake with eyes open. Tube feeds were resumed today. Objective Vital Signs Date Time Temp Pulse Resp B/P Pulse Ox O2 Delivery O2 Flow Rate FiO2 06/20/16 08:18 98 T-piece 6.00 28 06/20/16 06:00 77 06/20/16 04:00 95.0 13 155/71 Intake and Output 06/19/16 06/19/16 06/19/16 07:59 15:59 23:59 Intake Total 1278 ml 1172 ml 1524 ml Output Total 1353 ml 1025 ml 1521 ml Balance -75 ml 147 ml 3 ml Result Diagram: 06/20/16 0338 Other Results Microbiology Date/Time Procedure Status Source Growth 06/19/16 17:15 Gram Stain - Final Resulted Cerebral Spinal Fluid Shunt Fluid 06/19/16 17:15 CSF Culture Resulted Cerebral Spinal Fluid Shunt Fluid Pending 06/19/16 17:15 Fungal Smear - Final Resulted Cerebral Spinal Fluid Shunt Fluid NO FUNGAL ELEMENTS SEEN. 06/19/16 17:15 Fungal Culture Resulted Cerebral Spinal Fluid Shunt Fluid Pending 06/19/16 17:15 Acid Fast Stain Received Cerebral Spinal Fluid Shunt Fluid Pending 06/19/16 17:15 Mycobacterial Culture Received Cerebral Spinal Fluid Shunt Fluid Pending Imaging Last Impressions Head CT 06/20/16 0000 Signed Impressions: Service Date/Time: Monday, June 20, 2016 05:34 - CONCLUSION: Left frontal ventriculostomy catheter placement as described above with a small amount of pneumocephalus now seen. Intraventricular blood is stable. Kuldip Nicolas MD Transcranial Doppler Study Complete 06/14/16 0000 Signed Impressions: Service Date/Time: May 11:29 - CONCLUSION: Overall there has been improvement better on the right than the left. Careful followup is suggested because of the elevated velocities home the left. Dillon Zaragoza MD FACR Chest X-Ray 06/11/16 0600 Signed Impressions: Service Date/Time: Saturday, June 11, 2016 04:00 - CONCLUSION: No change of bilateral hazy lower lung zone opacity indicating pulmonary edema versus pleural effusions. David Powell MD Neck CTA 06/10/16 Signed Impressions: Service Date/Time: Friday, June 10, 2016 10:50 - CONCLUSION: There is beadng of the distal internal carotid bilaterally likely related to spasm.. Lauro Mcbride MD Head CTA 06/10/16 Signed Impressions: Service Date/Time: Friday, June 10, 2016 10:50 - CONCLUSION: Suspected diffuse vasospasm. Lauro Mcbride MD Liver Ultrasound 06/08/16 Signed Impressions: Service Date/Time: Wednesday, June 08, 2016 14:00 - CONCLUSION: Ultrasound appearance of the liver and surrounding structures within normal limits. Lauro Logan MD CT Angiography 06/08/16 Signed Impressions: Service Date/Time: Wednesday, June 08, 2016 11:54 - CONCLUSION: 1. Bilateral pleural effusions with compressive atelectasis. 2. No pulmonary embolus. Lauro Logan MD Abdomen/Pelvis CT 06/08/16 Signed Impressions: Service Date/Time: Wednesday, June 08, 2016 11:54 - CONCLUSION: 1. There is mild distention of the colon but there are no findings to indicate bowel obstruction. A small volume of free fluid is present within the abdomen and pelvis. 2. Anasarca along with a presacral edema. 3. Small to moderate-sized bilateral pleural effusions with associated compressive atelectasis. Lauro Lamb MD Cerebral Arteriogram 06/05/16 Signed Impressions: Service Date/Time: Sunday, June 05, 2016 00:00 - CONCLUSION: 1. No evidence of aneurysm 2. 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 I do not see a mass. Etiology for the hemorrhage is not apparent. Dillon Zaragoza MD FACR Brain MRI 06/01/16 Signed Impressions: Service Date/Time: Wednesday, June 01, 2016 12:14 - CONCLUSION: 1. Intraventricular blood, negative for mass. Dillon Zaragoza MD FACR Objective Remarks GENERAL: 66 year old female, critically ill currently orotracheally intubated. SKIN: Warm and dry. No rash HEAD: Incisions dry. Status post right [employer] shunt EYES: PERRL. 2 mm bilaterally and reactive. No injection or drainage. NECK: Supple, trachea midline. Tracheostomy site intact, clean. No JVD CARDIOVASCULAR: RRR. S1, S2 no S4. Without murmur. RESPIRATORY: Essentially clear to auscultation bilaterally without wheezes rales or rhonchi GASTROINTESTINAL: Abdomen soft, non-tender, nondistended. PEG tube site clean. Active bowel sounds. MUSCULOSKELETAL: With trace nonpitting lower extremity edema Neuro: Uses both arms spontaneously, weak withdrawals in her bilateral LEs. Eyes are spontaneously open. A/P Problem List: (1) Subarachnoid hemorrhage ICD Code: I60.9 Status: Acute (2) Atrial fibrillation ICD Code: I48.91 Status: Acute (3) Coagulopathy ICD Code: D68.9 Status: Acute (4) Respiratory failure ICD Code: J96.90 Status: Acute (5) Hypertension ICD Code: I10 Status: Acute Assessment and Plan Neuro/Psych: Postop day #1 right [employer] shunt by Dr. Mtz Spontaneous subarachnoid bleed - brainstem right greater than left with severe vasospasm Intraventricular hemorrhage - third and posterior lateral ventricles Intracranial hypertension Malignant cerebral edema Seizures --CT head subarachnoid hemorrhage, MRI/A revealed no mass/source of bleeding --EEG 05/31 revealed moderate encephalopathy. No epileptiform activity q1h neuro checks Nimodipine 60 mg every 4 hours for 21 days Four-vessel angiogram 05/29 negative for aneurysm of vasospasm. No FMD - unable to access left vertebral artery --s/p 3% nacl. slowly normalizing Na, 2% sodium chloride discontinued yesterday --Keppra 1000 twice a day and Dilantin 100mg iv q12h. recheck phenytoin level 3 AM --Dr. Mtz: neurosurgery --CT/CTA 05/31: no evidence of vasospasm. --Daily TCDs --Negative cerebral angio to confirm 06/06. -- 06/10 severe vasospasm in the most right cerebral arteries. Status post intra- arterial verapamil treatment by IR 06/10. Repeat TCD Respiratory: Acute Hypoxic and hypercarbic respiratory failure --Currently on T piece 4 days Vent bundle --Duo nebs every 6 hours as needed bronchodilator therapy Head of bed elevated Wean FiO2 for goal SPO2 greater than 92% -CTA chest negative for PE. Positive bilateral lower lobe atelectasis and small to moderate bilateral pleural effusions Cardiovascular: Severe vasoplegia/Distributive Shock- resolved History of hypertension Dyslipidemia History of atrial fibrillation/chronic Off vasopressors. - severe vasospasm. Target systolic blood pressure 160-180. Remains spontaneously on this range without vasopressors Nimodipine 60 mg every 4 21 days - Pravachol 40 mg by mouth daily to be continued for dyslipidemia -Home medications are losartan/HCTZ 100/12.5 daily and metoprolol 25 mg twice a day. On Coreg 3.125 mg twice a day and HCTZ 12.5 mg daily for hypertension -Echocardiogram 05/31 revealed EF 65%. Moderate TR. Renal: -- Currently on normal saline with 20 mEq KCl 100 cc an hour -- Strict I/Os Avoid hypovolemia - Follow BMP in a.m. FEN/GI: Hypernatremia - resolving Acute protein calorie malnutrition- mild Hypokalemia tube feeds, Jevity 1.5, goal 50 cc an hour to be resumed today -Pepcid twice a day for GI prophylaxis -Colace/Senokot/MiraLAX twice a day for bowel regimen ICU electrolyte protocol Daily BMP Heme/ID: Coagulopathy secondary to Xarelto anticoagulation use for atrial fibrillation- resolved. Leukocytosis Daily CBC Status post K Centra Does not meet transfusion triggers at this time --holding Eliquis given SAH. Endocrine: Hyperglycemia of critical illness -- SSI, every 6 hours, medium scale ID PEG site infection Staph aureus pneumonia -Culture sent from wound grew out staph aureus and -Azactam, Levaquin, Vanc started 06/12 -> narrow to levaquin 14 day course. See orders.. Postoperative Ancef 3 dosages per neurosurgery Prophylaxis: GI Prophylaxis Pepcid iv q12h. DVT Prophylaxis --SCDs Holding pharmacologic DVT prophylaxis given intracranial hemorrhage, EVD in place. Start once cleared by Neurosurgery Lines: 05/27 right IJ triple lumen catheter removed 06/06. Currently PIV Parker Critical Care: The total critical care time was 35 minutes. Time to perform other separately billable procedures was not included in the critical care time. Edd Crow MD Jun 20, 2016 09:00
[2016-06-20] MEDS: FAMOTIDINE 20 MG TAB PO SCH ×2 (09:53→20:24)
--- NOTE | 2016-06-20 13:14 | HHI.NSPN ---
(Allison Mccullough) Note Status Status: Progress Note (Allison Mccullough) Interval History Interval History This is a 66 years old female was transferred to [facility] from [facility] for a subarachnoid hemorrhage. The patient and the was vacationing from [place]. They were on the train. Patient's states that around 2:00 this afternoon she suddenly developed severe headache and then vomited, and then had a syncopal episode. The train stopped. EMS was called. EMS personnel state that patient had altered status was able to follow commands and beginning without focal neurological deficit. No seizure activity. No tongue bitting. No tonic clonic movements. no incontinence of stool or urine. She was transported to [facility] in [place]. On the way to the hospital, she developed respiratory problem and patient was subsequently endotracheally intubated. She has history of atrial fibrillation and hypertension and was anticoagulated with Xarelto 20 mg daily. In addition she takes atorvastatin, HCTZ/ losartan, metoprolol. CT scan of the brain done at [facility] in [place] shows extensive subarachnoid and intraventricular hemorrhage with early obstructive hydrocephalus developing. She was placed given propofol and Cardene drip. Cardene drip and propofol was stopped secondary to hypotension on the way to the ED. Neurosurgical consultation was requested 05/28: intubated and sedated, s/p placement of ventriculostomy drain. CTA Brain neg for aneurysm, for cerebral angiography today, 05/29: seen this am during am round, withdrawing in the lower extremities, did not open eyes or follow commands for me, was reported to have followed with nursing. Cerebral angiography yesterday was neg for aneurysm. Then sergei Mario , patient having seizures, and posturing. ICPs has been 8-10, nursing reports EVD draining, CSF blood tinged. Transcranial doppler early this am negative for vasospasm 3/1: extends in uppers, withdraws in LEs 3/2: minimal withdrawals in the lower extremities, and extension. f/u CT Brain shows increased ventriculomegaly. CTA Head unremarkable for intracranial aneurysm. f/u EEG reports severe encephalopathy. ICPs at highest 8 overnight. 06/01: this morning slightly wiggled toes to command. ICPs below 5, EVD draining blood tinged CSF. 06/04: slightly opening eyes, EVD draining dark red CSF at 10 cm H20, ICPs at highest 8 overnight. 06/05: ICPs stable overnight, opening eyes. No reports of seizure like activities overnight. EVD continues to drain well. 06/06: cerebral angio completed yesterday, otherwise no neuro changes overnight. EVD draining, with stable ICPs. 06/07: opens eyes to pain stim, withdraws LE's, CSF dark red with stable ICPs 06/08: intubated, moderate eye opening, not tracking, not following commands. 06/11: eyes open, focuses, wiggled toes toe command. s/p intraarterial administration of verapamil for vasospasm 06/12: seen this morning during morning rounds, opens eyes, ICPs continues below 20. 06/13: mouthing words, moving upper extremities to commands, tracking more. 06/14: appears less awake and responsive today, EVD at 17 cm H20 with ICPs at highest 13. No recent TCDs. 06/15: More awake today, opens eyes and mouthing "I'm okay", reported she had followed command to right upper, and we true lower extremities to local stimuli , EVD @ 5 cmH20 06/17: EVD at 10 cm H20, mental status improving, awake, following commands. 06/18: EVD clamped since yesterday, f/u CT Brain this morning shows evidence of hydrocephalus. pt remains awake and alert. 06/20: POD 1 s/p left [employer] shunt placement and removal of right ventriculostomy drain, neuro awake,follows commands (Allison Mccullough) Labs, Micro, & Vital Signs Results Date Time Temp Pulse Resp B/P Pulse Ox O2 Delivery O2 Flow Rate FiO2 06/20/16 08:18 98 T-piece 6.00 28 06/20/16 06:00 77 06/20/16 04:00 72 06/20/16 04:00 95.0 72 13 155/71 96 06/20/16 02:00 75 06/20/16 00:00 94.3 70 13 161/72 100 Arterial Line 06/20/16 00:00 70 06/19/16 22:00 74 06/19/16 20:00 97.7 74 13 159/70 98 06/19/16 20:00 75 06/19/16 19:29 98 T-piece 28 06/19/16 18:15 82 19 122/69 95 Trach Collar 50 06/19/16 18:00 88 19 131/70 95 Trach Collar 50 06/19/16 17:45 81 19 135/72 94 Trach Collar 50 06/19/16 17:37 98.4 96 19 92 Trach Collar 50 141/73 06/19/16 14:00 82 06/20/16 07:00 Intake Total 3463 ml Output Total 3346 ml Balance 117 ml Constitutional Vital Signs Date Time Temp Pulse Resp B/P Pulse Ox O2 Delivery O2 Flow Rate FiO2 06/20/16 08:18 98 T-piece 6.00 28 06/20/16 06:00 77 06/20/16 04:00 72 06/20/16 04:00 95.0 72 13 155/71 96 06/20/16 02:00 75 06/20/16 00:00 94.3 70 13 161/72 100 Arterial Line 06/20/16 00:00 70 06/19/16 22:00 74 06/19/16 20:00 97.7 74 13 159/70 98 06/19/16 20:00 75 06/19/16 19:29 98 T-piece 28 06/19/16 18:15 82 19 122/69 95 Trach Collar 50 06/19/16 18:00 88 19 131/70 95 Trach Collar 50 06/19/16 17:45 81 19 135/72 94 Trach Collar 50 06/19/16 17:37 98.4 96 19 92 Trach Collar 50 141/73 06/19/16 14:00 82 06/20/16 07:00 Intake Total 3463 ml Output Total 3346 ml Balance 117 ml (Allison Mccullough) Review of Systems/Exam Exam Ms. Michaels awake, eyes open, following commands and mouthing words Neck: tracheostomy in place Left [employer] shunt palpated with good bubble rebound. Wound clean and dry. Cranial Nerves: Pupils 4 mm b/l Motor: wiggled b/l toes to commands, left > right, slightly moved right arm also Sensory: mild response to b/l LE Cerebellar: unable to assess due to her condition (Allison Mccullough) Medications Current Medications Current Medications Medications (Trade) Dose Ordered Sig/Jerry Route PRN Reason Start Time Stop Time Status Last Admin Dose Admin Propofol (Diprivan 1000 Mg/100ml Inj) 100 ml @ 0 mls/hr TITRATE IV 05/27/16 19:45 05/28/16 23:16 IV Flush (NS Flush) 2 ml UNSCH PRN IV FLUSH FLUSH AFTER USING IV ACCESS 05/27/16 20:45 05/27/16 22:30 IV Flush (NS Flush) 2 ml BID IV FLUSH 05/27/16 21:00 06/20/16 08:23 Artificial Tears (Tears Naturale Opth Soln) 1 drop TID EACH EYE 05/28/16 09:00 06/20/16 12:05 Ondansetron HCl (Zofran Inj) 4 mg Q6H PRN IV NAUSEA OR VOMITING 05/27/16 20:45 Docusate Sodium (Colace Liq) 100 mg Q12H G-TUBE 05/27/16 20:45 06/19/16 19:23 Miscellaneous Information 1 Q361D XX 05/27/16 20:45 05/27/16 20:45 Chlorhexidine Gluconate (Chlorhexidine 2% Cloth) 3 pack Taper DAILY@04 TOP 05/28/16 04:00 05/24/17 03:59 06/20/16 03:03 Chlorhexidine Gluconate 3 pack 3 pack UNSCH PRN TOP HYGIENIC CARE 05/27/16 20:45 Nicardipine HCl/ Sodium Chloride (Cardene Inj/NS 250 ml Inj) 260 ml @ 0 mls/hr TITRATE IV 05/27/16 21:00 06/09/16 15:00 Pravastatin Sodium 40 mg 40 mg HS PO 05/27/16 21:00 06/19/16 19:21 Levetriacetam 100 ml @ 400 mls/hr Q12HR IV 05/28/16 09:00 06/20/16 08:22 Potassium Chloride 100 ml @ 50 mls/hr Q2H PRN IV For Potassium 2.8 - 3.2 mEq/L 05/28/16 01:45 06/04/16 13:40 Potassium Chloride (KCl 20 Meq Premix Inj) 100 ml @ 50 mls/hr Q2H PRN IV For Potassium 2.8 - 3.2 mEq/L 05/28/16 01:45 06/15/16 11:40 Potassium Chloride 40 meq 40 meq UNSCH PRN PO/TUBE For Potassium 3.3 - 3.5 mEq/L 05/28/16 01:45 06/12/16 03:32 Potassium Chloride 100 ml @ 50 mls/hr Q2H PRN IV For Potassium 3.3 - 3.5 mEq/L 05/28/16 01:45 06/20/16 12:05 Magnesium Sulfate/ Sodium Chloride (Magnesium Sulfate Inj/NS Inj) 100 ml @ 50 mls/hr UNSCH PRN IV For Magnesium 0.9 - 1.1 mg/dL 05/28/16 01:45 Magnesium Oxide 800 mg 800 mg UNSCH PRN PO For Magnesium 1.2 - 1.6 mg/dL 05/28/16 01:45 Magnesium Sulfate/ Sodium Chloride (Magnesium Sulfate Inj/NS Inj) 100 ml @ 50 mls/hr UNSCH PRN IV For Magnesium 1.2 - 1.6 mg/dL 05/28/16 01:45 06/04/16 13:40 Potassium Phosphate 2000 mg 2,000 mg Q4H PRN PO For Phosphorus < 2.5 mg/dL 05/28/16 01:45 Sodium Phosphate/ Sodium Chloride (Sodium Phosphate Inj/NS 250 ml Inj) 250 ml @ 42 mls/hr UNSCH PRN IV For Phosphorus < 2.5 mg/dL 05/28/16 01:45 06/10/16 08:45 Potassium Chloride (KCl 40 Meq/30 ml Liq) 40 meq UNSCH PRN PO/TUBE SEE LABEL COMMENTS 05/28/16 01:45 06/03/16 05:31 Potassium Phosphate 2000 mg 2,000 mg UNSCH PRN PO/TUBE SEE LABEL COMMENTS 05/28/16 01:45 Potassium Phosphate/Sodium Chloride (Potassium Phosphate Inj/NS 250 ml Inj) 260 ml @ 42 mls/hr UNSCH PRN IV SEE LABEL COMMENTS 05/28/16 01:45 06/08/16 17:09 Dextrose (D50w (Vial) Inj) 25 ml UNSCH PRN IV PUSH HYPOGLYCEMIA-SEE COMMENTS 05/29/16 07:30 Insulin Human Regular (NovoLIN R SUPPLEMENTAL SCALE) 1 Q6HR SQ 05/29/16 12:00 06/17/16 05:57 Fosphenytoin Sodium (Cerebyx Inj) 100 mgpe Q12HR IV 06/02/16 09:00 06/20/16 08:24 Sennosides (Senna Liq) 8.8 mg BID PO/TUBE 06/07/16 09:00 06/18/16 19:29 Glycerin (Glycerin Adult Supp) 2 gm BID PRN RECTAL CONSTIPATION 06/07/16 09:00 Polyethylene Glycol (Miralax) 17 gm BID PO 06/08/16 21:00 06/19/16 19:22 Hydrochlorothiazide (Microzide) 12.5 mg DAILY PO 06/10/16 09:00 06/20/16 08:23 Enoxaparin Sodium (Lovenox Inj) 40 mg Q24H SQ 06/11/16 17:00 Hold 06/17/16 17:00 Carvedilol 3.125 mg 3.125 mg Q12HR PO 06/16/16 21:00 06/20/16 08:23 Potassium Chloride/Sodium Chloride 1,000 ml @ 100 mls/hr Q10H IV 06/19/16 17:26 06/20/16 12:51 Cefazolin Sodium/ Dextrose (Ancef 2 Gm Premix) 50 ml @ 100 mls/hr Q8H IV 06/19/16 22:00 06/20/16 14:29 06/20/16 05:55 Acetaminophen/ Hydrocodone Bitart (Raritan 10-325 Mg) 1 tab Q4H PRN PO PAIN SCALE 1 TO 5 06/19/16 17:30 Acetaminophen/ Hydrocodone Bitart (Raritan 10-325 Mg) 2 tab Q4H PRN PO PAIN SCALE 6 TO 10 06/19/16 17:30 Morphine Sulfate (Morphine Inj) 2 mg Q2H PRN IV PUSH PAIN SCALE 1 TO 6 06/19/16 17:30 Morphine Sulfate (Morphine Inj) 4 mg Q2H PRN IV PUSH PAIN SCALE 7 TO 10 06/19/16 17:30 Acetaminophen (Tylenol) 650 mg Q4H PRN PO TEMPERATURE > 101.5 F 06/19/16 17:30 Famotidine (Pepcid) 20 mg BID PO 06/20/16 09:00 06/20/16 09:53 (Allison Mccullough) Medical Decision Making MDM Remarks 66 y/o female with subarachnoid hemorrhage suspected intracranial aneurysm, subarachnoid bleed improving CTA Head x 2 negative for aneurysm, Cerebral angiography neg for aneurysm, repeat cerebral angio 06/05/16 again neg for intracranial aneurysm TCD and CTA Head 06/10 with vasospasm, s/p intra-arterial administration of verapamil evidence of hydrocephalus following clamping of ventriculostomy drain s/p placement of left ventriculoperitoneal shunt for hydrocephalus 06/19/16, and removal of right ventriculostomy drain (Allison Mccullough) Plan Plan Remarks neuro stable post [employer] shunt, dc planning to rehab dw in room (Allison Mccullough) Attending Statement The exam, history, and the medical decision-making described in the above note were completed with the assistance of the mid-level provider. I reviewed and agree with the findings presented. I attest that I had a [id number] encounter with the patient on the same day, and personally performed and documented my assessment and findings in the medical record. (Arcenio Mtz MD) Allison Mccullough Jun 20, 2016 13:14 Arcenio Mtz MD Jun 24, 2016 20:43
[2016-06-20] MEDS ORDERED: LABETALOL HCL 100 MG/20 ML VIAL IV PUSH PRN (15:45)
[2016-06-20] MEDS ORDERED: NITROGLYCERIN 2% OINT 1 GM PACKET TOPICAL PRN (15:45)
[2016-06-20] MEDS: hydrALAZINE HCL 20 MG/ML VIAL IV PUSH PRN (17:48)
[2016-06-20] MEDS: levETIRAcetam 500 MG/5 ML UDC NG SCH (20:24)
[2016-06-20] MEDS: PRAVASTATIN SOD 40 MG TAB PO SCH (20:25)
[2016-06-21] VITALS (12 sets, daily range): BP systolic 145–164; BP diastolic 64–74; PULSE 95–110; RESP 18–29; TEMP 97.7–98.3; O2SAT 93–98
[2016-06-21] MEDS: hydrALAZINE HCL 20 MG/ML VIAL IV PUSH PRN (02:50)
[2016-06-21] MEDS: CHLORHEXIDINE GLUCONATE 2 % 1 PACK (2 CLOTHS) TOP SCH (03:08)
[2016-06-21 04:29] LABS: AUTOMATED NEUTROPHIL # 10.9 TH/MM3 (1.8-7.7); BASOPHIL # 0.1 TH/MM3 (0-0.2); BASOPHIL % 0.6 % (0.0-2.0); EOSINOPHIL # 0.1 TH/MM3 (0-0.4); EOSINOPHIL % 0.7 % (0.0-4.0); HEMATOCRIT 26.9 % (35.0-46.0); LYMPH % 9.7 % (9.0-44.0); LYMPHOCYTE # 1.3 TH/MM3 (1.0-4.8); MEAN CELL VOLUME 90.8 FL (80.0-100.0); MEAN CORPUSCULAR HEMOGLOBIN 31.4 PG (27.0-34.0); MEAN CORPUSCULAR HGB CONC 34.6 % (32.0-36.0); MONO % 8.3 % (0.0-8.0); NEUT % 80.7 % (16.0-70.0); PLATELET COUNT 552 TH/MM3 (150-450); RED BLOOD COUNT 2.97 MIL/MM3 (4.00-5.30); RED CELL DISTRIBUTION WIDTH 14.2 % (11.6-17.2); WHITE BLOOD COUNT 13.5 TH/MM3 (4.0-11.0)
[2016-06-21 04:42] LABS: HEMO FLAGS DIFF FINAL
[2016-06-21 04:51] LABS: BICARBONATE 29.1 MEQ/L (21.0-32.0); POTASSIUM 3.6 MEQ/L (3.5-5.1)
[2016-06-21] MEDS: INSULIN NovoLIN REGULAR SUPPLEMENTAL SCALE SQ SCH ×4 (06:00→23:35)
[2016-06-21] MEDS: DOCUSATE SODIUM 100 MG/10 ML UDC G-TUBE SCH (08:45)
[2016-06-21] MEDS: FOSPHENYTOIN SODIUM 100 MG PE/2 ML VIAL IV SCH (09:00)
[2016-06-21] MEDS: SODIUM CHLORIDE 0.9% FLUSH 5 ML FLUSH IV FLUSH SCH (09:00)
[2016-06-21] MEDS: ARTIFICIAL TEARS OPTH SOLN 15 ML BTL EACH EYE SCH ×2 (09:00→18:00)
[2016-06-21] MEDS: SENNOSIDES SYRUP 8.8 MG/5 ML CUP PO/TUBE SCH ×2 (09:00→20:06)
[2016-06-21] MEDS: POLYETHYLENE GLYCOL 17 GM PKG PO SCH ×2 (09:00→20:06)
[2016-06-21] MEDS: levETIRAcetam 500 MG/5 ML UDC NG SCH ×2 (09:11→20:04)
[2016-06-21] MEDS: FAMOTIDINE 20 MG TAB PO SCH ×2 (09:11→20:05)
[2016-06-21] MEDS: HYDROCHLOROTHIAZIDE 12.5 MG CAP PO SCH (09:11)
[2016-06-21] MEDS: CARVEDILOL 3.125 MG TAB PO SCH ×2 (09:11→20:05)
--- NOTE | 2016-06-21 09:48 | HHI.CCPN ---
Subjective Remarks/Hospital Course Hospital Course: 66 years old female was transferred to [facility] from [facility] in [place]. Patient and her was vacationing from [place]. They aware on the train while at around 2:00 patient started having severe headache and then vomited and then had a syncopal episode. Patient was transported to [facility] in [place]. On the way to the hospital, patient started having respiratory problem and patient was subsequently intubated. Patient has history of atrial fibrillation and hypertension and on Xarelto 20 mg daily, atorvastatin, HCTZ/ losartan, metoprolol. CT scan of the brain done at [facility] in [place] shows diffuse subarachnoid hemorrhage with intraventricular extension and early obstructive hydrocephalus developing. Dr. Mtz, neurosurgeon at [place] was contacted and accepted transfer. 05/28: slight improvements, withdrawing to deep nailbed pressure. on cardene for hypertension. plan for angio today or tomorrow. 05/29: worsening neuro exam overnight. repeat head CT with effacement, slight compression of the brainstem. angiogram overnight without evidence of aneurysm or vasospasm. more hypotensive this morning on norepinephrine. flaccid x 4, no cough or gag. propofol turned off at 0600. 05/30: EEG with evidence of seizures. Keppra increased yesterday and Cerebryx loaded. this morning, on increasing vasopressor requirements. added phenylephrine on top of maximal levophed, vasopressin. echo with prelim hyperdynamic biventricular function. ICP stable. poor neurologic function. posturing in UEs. 05/31: vasopressors weaned overnight significantly, but remains on some support. repeat EEG improved with no evidence of ongoing ictal activity. ICP stable. this morning, no longer following commands in LEs, no longer posturing in upper extremities. discussed care with Dr. Mtz, will plan to go to CT/CTA brain to r /o vasospasm.06/01: CTA yesterday without evidence of vasospasm. TCDs negative today for vasospasm. still will intermittently follow commands in LEs, nothing in upper extremities. Na still very high, 160s. ICP well controlled. off vasopressors. 06/02: Na coming down slowly. TCDs pending for today. neuro exam stable. phenytoin level borderline high. 06/03: Tmax 100.4. Currently 99.1. Tolerating tube feeds at goal. Positive BM. Neuro exam remains stable. 3/6: Remains sedated, orally intubated on mechanical ventilation. Ventriculostomy in place. Cardene drip at 1 mg/h 06/05: Remains sedated, orally intubated on mechanical ventilation. Ventriculostomy in place. 06/06: AM laboratories currently pending. Afebrile. Noted cerebral angiogram without signs of vasospasm. 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 Dr. Mtz recommends per contains tracheostomy per RN. Tolerating tube feeding. 06/07: Tmax 99.5. Currently afebrile. Plan for cutaneous tracheostomy today. Ordered for PEG tube for a.m. Neurological unchanged with extension lower extremities flaccid upper extremities. 06/08: Tmax 100.8. This morning with acute episode acutely desaturated. Chest X-ray shows bilateral lower lobe infiltrates/pleural effusions. +600 cc past 24 hours. No bowel movement since 06/05. Status post PEG tube yesterday without complication. 06/09: Afebrile. Desaturate yesterday requiring bronchoscopy. Thick white secretions noted throughout right in left lobes. Actually hard yellow secretions that coated the scope required multiple washings at end of ET tube probably causing desaturation. Currently down to 55%. Plan for tracheostomy today at 3 PM. 06/10 moderate vasospasm on TCD's on the right Lind[place]ard ratio 3.7, severe vasospasm on CTA 06/11: Eyes open spontaneously tracking intermittently following commands by wiggling toes. s/p intraarterial administration of verapamil for vasospasm 06/10. 06/12: Fresh pus draining from subcutaneous tissue at PEG insertion site on abdominal wall. Cultures sent, abx started. 06/13: Purulent PEG site drainage growing Staph and a GNR. Continue Vanc and PIP /KORTNEY. 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 06/14: Wound with MSSA and Serratia. Will narrow to levaquin. Leukocytosis has resolved. Less responsive today, will order TCDs. 06/15: Diuresis now, review specific gravity. May be DI. 06/16: No DI. Will hold ARB while we are trying to raise MAP. 06/17: Breathing comfortably on trach collar/T-piece set-up for 48 hours now. Afebrile and leukocytosis has resolved on levaquin. 06/18: Hydrocephalus on CT, consistent with her ventric challenges. NS to insert [employer] shunt. 06/19: Breathing comfortably on trach collar. 06/20: Status post left [employer] shunt yesterday. CURRENT TEMPERATURE 95. Awake with eyes open. Tube feeds were resumed today. Subjective 06/21: Resting In bed. Eyes are open awake. Tolerating TP trials. Afebrile. Objective Vital Signs Date Time Temp Pulse Resp B/P Pulse Ox O2 Delivery O2 Flow Rate FiO2 06/21/16 08:41 95 T-piece 6.00 35 06/21/16 08:00 98.3 95 20 164/74 Intake and Output 06/20/16 06/20/16 06/21/16 08:00 16:00 00:00 Intake Total 767 ml 911 ml 1448 ml Output Total 800.0 ml 950 ml 1000 ml Balance -33.0 ml -39 ml 448 ml Result Diagram: 06/21/16 0405 06/21/16 0405 Other Results Microbiology Date/Time Procedure Status Source Growth 06/19/16 17:15 Gram Stain - Final Resulted Cerebral Spinal Fluid Shunt Fluid 06/19/16 17:15 CSF Culture - Preliminary Resulted Cerebral Spinal Fluid Shunt Fluid NO GROWTH IN 48 HOURS. 06/19/16 17:15 Fungal Smear - Final Resulted Cerebral Spinal Fluid Shunt Fluid NO FUNGAL ELEMENTS SEEN. 06/19/16 17:15 Fungal Culture Resulted Cerebral Spinal Fluid Shunt Fluid Pending 06/19/16 17:15 Acid Fast Stain Received Cerebral Spinal Fluid Shunt Fluid Pending 06/19/16 17:15 Mycobacterial Culture Received Cerebral Spinal Fluid Shunt Fluid Pending Imaging Last Impressions Head CT 06/20/16 0000 Signed Impressions: Service Date/Time: Monday, June 20, 2016 05:34 - CONCLUSION: Left frontal ventriculostomy catheter placement as described above with a small amount of pneumocephalus now seen. Intraventricular blood is stable. Kuldip Nicolas MD Transcranial Doppler Study Complete 06/14/16 0000 Signed Impressions: Service Date/Time: May 11:29 - CONCLUSION: Overall there has been improvement better on the right than the left. Careful followup is suggested because of the elevated velocities home the left. Dillon Zaragoza MD FACR Chest X-Ray 06/11/16 0600 Signed Impressions: Service Date/Time: Saturday, June 11, 2016 04:00 - CONCLUSION: No change of bilateral hazy lower lung zone opacity indicating pulmonary edema versus pleural effusions. David Powell MD Neck CTA 06/10/16 Signed Impressions: Service Date/Time: Friday, June 10, 2016 10:50 - CONCLUSION: There is beadng of the distal internal carotid bilaterally likely related to spasm.. Lauro Mcbride MD Head CTA 06/10/16 Signed Impressions: Service Date/Time: Friday, June 10, 2016 10:50 - CONCLUSION: Suspected diffuse vasospasm. Lauro Mcbride MD Liver Ultrasound 06/08/16 Signed Impressions: Service Date/Time: Wednesday, June 08, 2016 14:00 - CONCLUSION: Ultrasound appearance of the liver and surrounding structures within normal limits. Lauro Logan MD CT Angiography 06/08/16 Signed Impressions: Service Date/Time: Wednesday, June 08, 2016 11:54 - CONCLUSION: 1. Bilateral pleural effusions with compressive atelectasis. 2. No pulmonary embolus. Lauro Logan MD Abdomen/Pelvis CT 06/08/16 Signed Impressions: Service Date/Time: Wednesday, June 08, 2016 11:54 - CONCLUSION: 1. There is mild distention of the colon but there are no findings to indicate bowel obstruction. A small volume of free fluid is present within the abdomen and pelvis. 2. Anasarca along with a presacral edema. 3. Small to moderate-sized bilateral pleural effusions with associated compressive atelectasis. Lauro Lamb MD Cerebral Arteriogram 06/05/16 Signed Impressions: Service Date/Time: Sunday, June 05, 2016 00:00 - CONCLUSION: 1. No evidence of aneurysm 2. 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 I do not see a mass. Etiology for the hemorrhage is not apparent. Dillon Zaragoza MD FACR Brain MRI 06/01/16 Signed Impressions: Service Date/Time: Wednesday, June 01, 2016 12:14 - CONCLUSION: 1. Intraventricular blood, negative for mass. Dillon Zaragoza MD FACR Objective Remarks GENERAL: 66 year old female, critically ill currently orotracheally intubated. SKIN: Warm and dry. No rash HEAD: Incisions dry. Status post left [employer] shunt EYES: PERRL. 2 mm bilaterally and reactive. No injection or drainage. NECK: Supple, trachea midline. Tracheostomy site intact, clean. No JVD CARDIOVASCULAR: RRR. S1, S2 no S4. Without murmur. RESPIRATORY: Essentially clear to auscultation bilaterally without wheezes rales or rhonchi GASTROINTESTINAL: Abdomen soft, non-tender, nondistended. PEG tube site clean. Active bowel sounds. MUSCULOSKELETAL: With trace nonpitting lower extremity edema Neuro: Uses both arms spontaneously, weak withdrawals in her bilateral LEs. Eyes are spontaneously open. A/P Problem List: (1) Subarachnoid hemorrhage ICD Code: I60.9 Status: Acute (2) Atrial fibrillation ICD Code: I48.91 Status: Acute (3) Coagulopathy ICD Code: D68.9 Status: Acute (4) Respiratory failure ICD Code: J96.90 Status: Acute (5) Hypertension ICD Code: I10 Status: Acute Assessment and Plan Neuro/Psych: Postop day #2 left [employer] shunt by Dr. Mtz Spontaneous subarachnoid bleed - brainstem right greater than left with severe vasospasm Intraventricular hemorrhage - third and posterior lateral ventricles Intracranial hypertension Malignant cerebral edema Seizures --CT head subarachnoid hemorrhage, MRI/A revealed no mass/source of bleeding --EEG 3 revealed moderate encephalopathy. No epileptiform activity q1h neuro checks Nimodipine 60 mg every 4 hours for 21 days Four-vessel angiogram 05/29 negative for aneurysm of vasospasm. No FMD - unable to access left vertebral artery --s/p 3% nacl. slowly normalizing Na, 2% sodium chloride discontinued yesterday --Keppra 1000 twice a day and Dilantin 100mg iv q12h. --Dr. Mtz: neurosurgery --CT/CTA 05/31: no evidence of vasospasm. --Daily TCDs --Negative cerebral angio to confirm 06/06. -- 06/10 severe vasospasm in the most right cerebral arteries. Status post intra- arterial verapamil treatment by IR 06/10. Repeat TCD Respiratory: Acute Hypoxic and hypercarbic respiratory failure --Currently on T piece 4 days Vent bundle --Duo nebs every 6 hours as needed bronchodilator therapy Head of bed elevated Wean FiO2 for goal SPO2 greater than 92% -CTA chest negative for PE. Positive bilateral lower lobe atelectasis and small to moderate bilateral pleural effusions Cardiovascular: Severe vasoplegia/Distributive Shock- resolved History of hypertension Dyslipidemia History of atrial fibrillation/chronic Off vasopressors. - severe vasospasm. Target systolic blood pressure 160-180. Remains spontaneously on this range without vasopressors Nimodipine 60 mg every 4 21 days completed - Pravachol 40 mg by mouth daily to be continued for dyslipidemia -Home medications are losartan/HCTZ 100/12.5 daily and metoprolol 25 mg twice a day. On Coreg 3.125 mg twice a day and HCTZ 12.5 mg daily for hypertension -Echocardiogram 05/31 revealed EF 65%. Moderate TR. Renal: -- Currently on normal saline with 20 mEq KCl 100 cc an hour -- Strict I/Os Avoid hypovolemia - Follow BMP in a.m. FEN/GI: Hypernatremia - resolving Acute protein calorie malnutrition- mild Hypokalemia tube feeds, Jevity 1.5, goal 50 cc an hour to be continued -Pepcid twice a day for GI prophylaxis -Colace/Senokot/MiraLAX twice a day for bowel regimen ICU electrolyte protocol Daily BMP Heme/ID: Coagulopathy secondary to Xarelto anticoagulation use for atrial fibrillation- resolved. Leukocytosis Daily CBC Status post K [facility] Does not meet transfusion triggers at this time --holding Eliquis given SAH. Endocrine: Hyperglycemia of critical illness -- SSI, every 6 hours, medium scale ID PEG site infection Staph aureus pneumonia -Culture sent from wound grew out staph aureus and -Azactam, Levaquin, Vanc started 06/12 -> narrow to levaquin 14 day course. See orders.. Postoperative Ancef 3 dosages per neurosurgery Prophylaxis: GI Prophylaxis Pepcid q12h. DVT Prophylaxis --SCDs Holding pharmacologic DVT prophylaxis given intracranial hemorrhage, EVD in place. Start once cleared by Neurosurgery Lines: 05/27 right IJ triple lumen catheter removed 06/06. Currently PIV [place] Critical Care: The total critical care time was 35 minutes. Time to perform other separately billable procedures was not included in the critical care time. Edd Crow MD Jun 21, 2016 09:48
[2016-06-21] MEDS ORDERED: FOSP1INJ5 IV (09:59)
[2016-06-21] MEDS ORDERED: POLY17S PO (09:59)
[2016-06-21] MEDS ORDERED: LEVE500S NG (09:59)
[2016-06-21] MEDS ORDERED: CARV3.125 PO (09:59)
[2016-06-21] MEDS ORDERED: DOCU100S G-TUBE (09:59)
[2016-06-21] MEDS ORDERED: FAMO20TA2 PO (09:59)
[2016-06-21] MEDS ORDERED: ACET325T PO (09:59)
[2016-06-21] MEDS ORDERED: HYDR12.57 PO (09:59)
[2016-06-21] MEDS ORDERED: HYDR-3583 PO (09:59)
--- NOTE | 2016-06-21 10:02 | HHI.DS ---
Discharge Summary Admission Date May 27, 2016 at 20:18 Discharge Date: Jun 21, 2016 Admitting Diagnosis intracranial hemorrhage (1) Subarachnoid hemorrhage ICD Code: I60.9 Diagnosis: Principal (2) Coagulopathy ICD Code: D68.9 Diagnosis: Principal (3) Respiratory failure ICD Code: J96.90 Diagnosis: Principal (4) Hypertension ICD Code: I10 Diagnosis: Principal Procedures EVD - 05/27 - Smith Left LABORER POLE CREW shunt - 06/19 - Smith #8 Shiley percutaneous tracheostomy - Debby Brief History 66 years old female was transferred to [facility] from [facility]. Patient and her was vacationing from [place]. They aware on the train while at around 2:00 patient started having severe headache and then vomited and then had a syncopal episode. Patient was transported to [facility]. On the way to the hospital, patient started having respiratory problem and patient was subsequently intubated. Patient has history of atrial fibrillation and hypertension and on Xarelto 20 mg daily, atorvastatin, HCTZ/ losartan, metoprolol. CT scan of the brain done at [facility] shows diffuse subarachnoid hemorrhage with intraventricular extension and early obstructive hydrocephalus developing. Dr. Mtz, neurosurgeon at [facility] was contacted and accepted transfer. CBC/BMP: 06/21/16 0405 06/21/16 0405 Significant Findings Laboratory Tests Test 06/19/16 06/19/16 06/20/16 06/21/16 08:24 17:15 03:38 04:05 Sodium Level 135 MEQ/L (136-145) Potassium Level 3.3 MEQ/L (3.5-5.1) Chloride Level 97 MEQ/L (98-107) Blood Urea Nitrogen 5 MG/DL (7-18) 4 MG/DL (7-18) Creatinine 0.30 MG/DL 0.21 MG/DL 0.34 MG/DL (0.50-1.00) (0.50-1.00) (0.50-1.00) Calcium Level 8.1 MG/DL (8.5-10.1) CSF Supernatant Color (tube 1) SLIGHTLY XANTHOCHROM (CLEAR) CSF Gross Blood (Tube 1) 1+ (0) CSF WBC (Tube 1) 89 /MM3 (0-10) CSF RBC (Tube 1) 572 /MM3 (NONE) White Blood Count 13.5 TH/MM3 (4.0-11.0) Red Blood Count 2.97 MIL/MM3 (4.00-5.30) Hemoglobin 9.3 GM/DL (11.6-15.3) Hematocrit 26.9 % (35.0-46.0) Platelet Count 552 TH/MM3 (150-450) Neutrophils (%) (Auto) 80.7 % (16.0-70.0) Monocytes (%) (Auto) 8.3 % (0.0-8.0) Neutrophils # (Auto) 10.9 TH/MM3 (1.8-7.7) Monocytes # (Auto) 1.1 TH/MM3 (0-0.9) Random Glucose 154 MG/DL (74-106) Phenytoin (Dilantin) Level 2.1 MCG/ML (10.0-20.0) Imaging Last Impressions Head CT 06/20/16 0000 Signed Impressions: Service Date/Time: Monday, June 20, 2016 05:34 - CONCLUSION: Left frontal ventriculostomy catheter placement as described above with a small amount of pneumocephalus now seen. Intraventricular blood is stable. Kuldip Nicolas MD Transcranial Doppler Study Complete 06/14/16 0000 Signed Impressions: Service Date/Time: May 11:29 - CONCLUSION: Overall there has been improvement better on the right than the left. Careful followup is suggested because of the elevated velocities home the left. Dillon Zaragoza MD FACR Chest X-Ray 06/11/16 0600 Signed Impressions: Service Date/Time: Saturday, June 11, 2016 04:00 - CONCLUSION: No change of bilateral hazy lower lung zone opacity indicating pulmonary edema versus pleural effusions. David Powell MD Neck CTA 06/10/16 0000 Signed Impressions: Service Date/Time: Friday, June 10, 2016 10:50 - CONCLUSION: There is beadng of the distal internal carotid bilaterally likely related to spasm.. Lauro Mcbride MD Head CTA 06/10/16 0000 Signed Impressions: Service Date/Time: Friday, June 10, 2016 10:50 - CONCLUSION: Suspected diffuse vasospasm. Lauro Mcbride MD Liver Ultrasound 06/08/16 0000 Signed Impressions: Service Date/Time: Wednesday, June 08, 2016 14:00 - CONCLUSION: Ultrasound appearance of the liver and surrounding structures within normal limits. Lauro Logan MD CT Angiography 06/08/16 0000 Signed Impressions: Service Date/Time: Wednesday, June 08, 2016 11:54 - CONCLUSION: 1. Bilateral pleural effusions with compressive atelectasis. 2. No pulmonary embolus. Lauro Logan MD Abdomen/Pelvis CT 06/08/16 0000 Signed Impressions: Service Date/Time: Wednesday, June 08, 2016 11:54 - CONCLUSION: 1. There is mild distention of the colon but there are no findings to indicate bowel obstruction. A small volume of free fluid is present within the abdomen and pelvis. 2. Anasarca along with a presacral edema. 3. Small to moderate-sized bilateral pleural effusions with associated compressive atelectasis. Lauro Lamb MD Cerebral Arteriogram 06/05/16 0000 Signed Impressions: Service Date/Time: Sunday, June 05, 2016 00:00 - CONCLUSION: 1. No evidence of aneurysm 2. 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 I do not see a mass. Etiology for the hemorrhage is not apparent. Dillon Zaragoza MD FACR Brain MRI 06/01/16 0000 Signed Impressions: Service Date/Time: Wednesday, June 01, 2016 12:14 - CONCLUSION: 1. Intraventricular blood, negative for mass. Dillon Zaragoza MD FACR PE at Discharge GENERAL: 66 year old female, critically ill currently orotracheally intubated. SKIN: Warm and dry. No rash HEAD: Incisions dry. Status post left LABORER POLE CREW shunt EYES: PERRL. 2 mm bilaterally and reactive. No injection or drainage. NECK: Supple, trachea midline. Tracheostomy site intact, clean. No JVD CARDIOVASCULAR: RRR. S1, S2 no S4. Without murmur. RESPIRATORY: Essentially clear to auscultation bilaterally without wheezes rales or rhonchi GASTROINTESTINAL: Abdomen soft, non-tender, nondistended. PEG tube site clean. Active bowel sounds. MUSCULOSKELETAL: With trace nonpitting lower extremity edema Neuro: Uses both arms spontaneously, weak withdrawals in her bilateral LEs. Eyes are spontaneously open. Transfer Summary Neuro/Psych: Postop day #2 left LABORER POLE CREW shunt by Dr. Mtz Spontaneous subarachnoid bleed - brainstem right greater than left with severe vasospasm Intraventricular hemorrhage - third and posterior lateral ventricles Intracranial hypertension Malignant cerebral edema Seizures --CT head subarachnoid hemorrhage, MRI/A revealed no mass/source of bleeding --EEG 05/31 revealed moderate encephalopathy. No epileptiform activity q1h neuro checks Nimodipine 60 mg every 4 hours for 21 days Four-vessel angiogram 05/29 negative for aneurysm of vasospasm. No FMD - unable to access left vertebral artery --s/p 3% nacl. slowly normalizing Na, 2% sodium chloride discontinued yesterday --Keppra 1000 twice a day and Dilantin 100mg iv q12h. --Dr. Mtz: neurosurgery --CT/CTA 05/31: no evidence of vasospasm. --Daily TCDs --Negative cerebral angio to confirm 06/06. -- 06/10 severe vasospasm in the most right cerebral arteries. Status post intra- arterial verapamil treatment by IR 06/10. Repeat TCD Respiratory: Acute Hypoxic and hypercarbic respiratory failure --Currently on T piece 4 days Vent bundle --Duo nebs every 6 hours as needed bronchodilator therapy Head of bed elevated Wean FiO2 for goal SPO2 greater than 92% -CTA chest negative for PE. Positive bilateral lower lobe atelectasis and small to moderate bilateral pleural effusions Cardiovascular: Severe vasoplegia/Distributive Shock- resolved History of hypertension Dyslipidemia History of atrial fibrillation/chronic Off vasopressors. - severe vasospasm. Target systolic blood pressure 160-180. Remains spontaneously on this range without vasopressors Nimodipine 60 mg every 4 21 days completed - Pravachol 40 mg by mouth daily to be continued for dyslipidemia -Home medications are losartan/HCTZ 100/12.5 daily and metoprolol 25 mg twice a day. On Coreg 3.125 mg twice a day and HCTZ 12.5 mg daily for hypertension -Echocardiogram 05/31 revealed EF 65%. Moderate TR. Renal: -- Currently on normal saline with 20 mEq KCl 100 cc an hour -- Strict I/Os Avoid hypovolemia - Follow BMP in a.m. FEN/GI: Hypernatremia - resolving Acute protein calorie malnutrition- mild Hypokalemia tube feeds, Jevity 1.5, goal 50 cc an hour to be continued -Pepcid twice a day for GI prophylaxis -Colace/Senokot/MiraLAX twice a day for bowel regimen ICU electrolyte protocol Daily BMP Heme/ID: Coagulopathy secondary to Xarelto anticoagulation use for atrial fibrillation- resolved. Leukocytosis Daily CBC Status post K Centra Does not meet transfusion triggers at this time --holding Eliquis given SAH. Endocrine: Hyperglycemia of critical illness -- SSI, every 6 hours, medium scale ID PEG site infection Staph aureus pneumonia -Culture sent from wound grew out staph aureus and -Azactam, Levaquin, Vanc started 06/12 -> narrow to levaquin 14 day course. See orders.. Postoperative Ancef 3 dosages per neurosurgery Prophylaxis: GI Prophylaxis Pepcid q12h. DVT Prophylaxis --SCDs Holding pharmacologic DVT prophylaxis given intracranial hemorrhage, EVD in place. Start once cleared by Neurosurgery Lines: 05/27 right IJ triple lumen catheter removed 06/06. Currently PIV [facility] Course Hospital Course: 66 years old female was transferred to [facility] from [facility]. Patient and her was vacationing from [place]. They aware on the train while at around 2:00 patient started having severe headache and then vomited and then had a syncopal episode. Patient was transported to [facility] in [place]. On the way to the hospital, patient started having respiratory problem and patient was subsequently intubated. Patient has history of atrial fibrillation and hypertension and on Xarelto 20 mg daily, atorvastatin, HCTZ/ losartan, metoprolol. CT scan of the brain done at [facility] in [place] shows diffuse subarachnoid hemorrhage with intraventricular extension and early obstructive hydrocephalus developing. Dr. Mtz, neurosurgeon at [facility] was contacted and accepted transfer. 05/28: slight improvements, withdrawing to deep nailbed pressure. on cardene for hypertension. plan for angio today or tomorrow. 05/29: worsening neuro exam overnight. repeat head CT with effacement, slight compression of the brainstem. angiogram overnight without evidence of aneurysm or vasospasm. more hypotensive this morning on norepinephrine. flaccid x 4, no cough or gag. propofol turned off at 0600. 05/30: EEG with evidence of seizures. Keppra increased yesterday and Cerebryx loaded. this morning, on increasing vasopressor requirements. added phenylephrine on top of maximal levophed, vasopressin. echo with prelim hyperdynamic biventricular function. ICP stable. poor neurologic function. posturing in UEs. 05/31: vasopressors weaned overnight significantly, but remains on some support. repeat EEG improved with no evidence of ongoing ictal activity. ICP stable. this morning, no longer following commands in LEs, no longer posturing in upper extremities. discussed care with Dr. Mtz, will plan to go to CT/CTA brain to r /o vasospasm.06/01: CTA yesterday without evidence of vasospasm. TCDs negative today for vasospasm. still will intermittently follow commands in LEs, nothing in upper extremities. Na still very high, 160s. ICP well controlled. off vasopressors. 06/02: Na coming down slowly. TCDs pending for today. neuro exam stable. phenytoin level borderline high. 06/03: Tmax 100.4. Currently 99.1. Tolerating tube feeds at goal. Positive BM. Neuro exam remains stable. 06/04: Remains sedated, orally intubated on mechanical ventilation. Ventriculostomy in place. Cardene drip at 1 mg/h 06/05: Remains sedated, orally intubated on mechanical ventilation. Ventriculostomy in place. 06/06: AM laboratories currently pending. Afebrile. Noted cerebral angiogram without signs of vasospasm. 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 Dr. Mtz recommends per contains tracheostomy per RN. Tolerating tube feeding. 06/07: Tmax 99.5. Currently afebrile. Plan for cutaneous tracheostomy today. Ordered for PEG tube for a.m. Neurological unchanged with extension lower extremities flaccid upper extremities. 06/08: Tmax 100.8. This morning with acute episode acutely desaturated. Chest X-ray shows bilateral lower lobe infiltrates/pleural effusions. +600 cc past 24 hours. No bowel movement since 06/05. Status post PEG tube yesterday without complication. 06/09: Afebrile. Desaturate yesterday requiring bronchoscopy. Thick white secretions noted throughout right in left lobes. Actually hard yellow secretions that coated the scope required multiple washings at end of ET tube probably causing desaturation. Currently down to 55%. Plan for tracheostomy today at 3 PM. 06/10 moderate vasospasm on TCD's on the right Lindegaard ratio 3.7, severe vasospasm on CTA 06/11: Eyes open spontaneously tracking intermittently following commands by wiggling toes. s/p intraarterial administration of verapamil for vasospasm 06/10. 06/12: Fresh pus draining from subcutaneous tissue at PEG insertion site on abdominal wall. Cultures sent, abx started. 06/13: Purulent PEG site drainage growing Staph and a GNR. Continue Vanc and PIP /KORTNEY. Site looks steam cleaner today. 06/14: Wound with MSSA and Serratia. Will narrow to levaquin. Leukocytosis has resolved. Less responsive today, will order TCDs. 06/15: Diuresis now, review specific gravity. May be DI. 06/16: No DI. Will hold ARB while we are trying to raise MAP. 06/17: Breathing comfortably on trach collar/T-piece set-up for 48 hours now. Afebrile and leukocytosis has resolved on levaquin. 06/18: Hydrocephalus on CT, consistent with her ventric challenges. NS to insert LABORER POLE CREW shunt. 06/19: Breathing comfortably on trach collar. 06/20: Status post left LABORER POLE CREW shunt yesterday. CURRENT TEMPERATURE 95. Awake with eyes open. Tube feeds were resumed today 06/21: Resting In bed. Eyes are open awake. Tolerating TP trials. Afebrile. Pt Condition on Discharge: Stable Discharge Disposition: Rehab Inpatient Discharge Instructions DIET: Follow Instructions for: On Tube Feeding Additional Diet Instructions: Jevity 1.5@50 cc an hour Activities you can perform: Non Weight Bearing Edd Crow MD Jun 21, 2016 10:02
--- NOTE | 2016-06-21 15:04 | HHI.NSPN ---
(Allison Mccullough) Note Status Status: Progress Note (Allison Mccullough) Interval History Interval History This is a 66 years old female was transferred to [facility] from [facility] for a subarachnoid hemorrhage. The patient and the was vacationing from [place]. They were on the train. Patient's states that around 2:00 this afternoon she suddenly developed severe headache and then vomited, and then had a syncopal episode. The train stopped. EMS was called. EMS personnel state that patient had altered status was able to follow commands and beginning without focal neurological deficit. No seizure activity. No tongue bitting. No tonic clonic movements. no incontinence of stool or urine. She was transported to [facility] in [place]. On the way to the hospital, she developed respiratory problem and patient was subsequently endotracheally intubated. She has history of atrial fibrillation and hypertension and was anticoagulated with Xarelto 20 mg daily. In addition she takes atorvastatin, HCTZ/ losartan, metoprolol. CT scan of the brain done at [facility] in [place] shows extensive subarachnoid and intraventricular hemorrhage with early obstructive hydrocephalus developing. She was placed given propofol and Cardene drip. Cardene drip and propofol was stopped secondary to hypotension on the way to the ED. Neurosurgical consultation was requested 05/28: intubated and sedated, s/p placement of ventriculostomy drain. CTA Brain neg for aneurysm, for cerebral angiography today, 05/29: seen this am during am round, withdrawing in the lower extremities, did not open eyes or follow commands for me, was reported to have followed with nursing. Cerebral angiography yesterday was neg for aneurysm. Then sergei Mario , patient having seizures, and posturing. ICPs has been 8-10, nursing reports EVD draining, CSF blood tinged. Transcranial doppler early this am negative for vasospasm 3/1: extends in uppers, withdraws in LEs 3/2: minimal withdrawals in the lower extremities, and extension. f/u CT Brain shows increased ventriculomegaly. CTA Head unremarkable for intracranial aneurysm. f/u EEG reports severe encephalopathy. ICPs at highest 8 overnight. 06/01: this morning slightly wiggled toes to command. ICPs below 5, EVD draining blood tinged CSF. 06/04: slightly opening eyes, EVD draining dark red CSF at 10 cm H20, ICPs at highest 8 overnight. 06/05: ICPs stable overnight, opening eyes. No reports of seizure like activities overnight. EVD continues to drain well. 06/06: cerebral angio completed yesterday, otherwise no neuro changes overnight. EVD draining, with stable ICPs. 06/07: opens eyes to pain stim, withdraws LE's, CSF dark red with stable ICPs 06/08: intubated, moderate eye opening, not tracking, not following commands. 06/11: eyes open, focuses, wiggled toes toe command. s/p intraarterial administration of verapamil for vasospasm 06/12: seen this morning during morning rounds, opens eyes, ICPs continues below 20. 06/13: mouthing words, moving upper extremities to commands, tracking more. 06/14: appears less awake and responsive today, EVD at 17 cm H20 with ICPs at highest 13. No recent TCDs. 06/15: More awake today, opens eyes and mouthing "I'm okay", reported she had followed command to right upper, and we true lower extremities to local stimuli , EVD @ 5 cmH20 06/17: EVD at 10 cm H20, mental status improving, awake, following commands. 06/18: EVD clamped since yesterday, f/u CT Brain this morning shows evidence of hydrocephalus. pt remains awake and alert. 06/20: POD 1 s/p left WORK OVER RIG OPERATOR shunt placement and removal of right ventriculostomy drain, neuro awake,follows commands 06/21: POD 2 doing well, neuro stable overnight, dc planning to rehab. (Allison Mccullough) Labs, Micro, & Vital Signs Results Date Time Temp Pulse Resp B/P Pulse Ox O2 Delivery O2 Flow Rate FiO2 06/21/16 12:57 98 T-piece 6.00 35 06/21/16 12:00 98 06/21/16 12:00 98.2 98 18 145/64 98 06/21/16 08:41 95 T-piece 6.00 35 06/21/16 08:00 98.3 95 20 164/74 93 06/21/16 08:00 97 06/21/16 06:00 105 06/21/16 04:00 110 06/21/16 04:00 97.7 110 29 147/66 94 06/21/16 02:00 102 06/21/16 00:00 98.1 106 25 149/67 97 06/21/16 00:00 106 06/20/16 22:00 88 06/20/16 20:00 97.8 100 27 168/70 94 06/20/16 20:00 100 06/20/16 19:30 95 T-piece 5.00 35 06/20/16 18:00 100 06/20/16 16:00 98.3 94 23 179/81 94 06/20/16 16:00 94 06/21/16 07:00 Intake Total 3573 ml Output Total 2250.0 ml Balance 1323.0 ml Constitutional Vital Signs Date Time Temp Pulse Resp B/P Pulse Ox O2 Delivery O2 Flow Rate FiO2 06/21/16 12:57 98 T-piece 6.00 35 06/21/16 12:00 98 06/21/16 12:00 98.2 98 18 145/64 98 06/21/16 08:41 95 T-piece 6.00 35 06/21/16 08:00 98.3 95 20 164/74 93 06/21/16 08:00 97 06/21/16 06:00 105 06/21/16 04:00 110 06/21/16 04:00 97.7 110 29 147/66 94 06/21/16 02:00 102 06/21/16 00:00 98.1 106 25 149/67 97 06/21/16 00:00 106 06/20/16 22:00 88 06/20/16 20:00 97.8 100 27 168/70 94 06/20/16 20:00 100 06/20/16 19:30 95 T-piece 5.00 35 06/20/16 18:00 100 06/20/16 16:00 98.3 94 23 179/81 94 06/20/16 16:00 94 06/21/16 07:00 Intake Total 3573 ml Output Total 2250.0 ml Balance 1323.0 ml (Allison Mccullough) Review of Systems/Exam Exam Ms. Xenia is alert, eyes open, following commands and mouthing words Neck: tracheostomy on t-piece Left WORK OVER RIG OPERATOR shunt palpated with good bubble rebound. Wound clean and dry. Cranial Nerves: Pupils 4 mm b/l, gross eye tracking Motor: wiggled b/l toes to commands, left > right, gross right arm movement Sensory: mild response to b/l LE Cerebellar: unable to assess due to her condition (Allison Mccullough) Medications Current Medications Current Medications Medications (Trade) Dose Ordered Sig/Jerry Route PRN Reason Start Time Stop Time Status Last Admin Dose Admin Pravastatin Sodium (Pravachol) 40 mg HS PO 05/27/16 21:00 06/20/16 20:25 Sennosides (Senna Liq) 8.8 mg BID PO/TUBE 06/07/16 09:00 06/18/16 19:29 Glycerin (Glycerin Adult Supp) 2 gm BID PRN RECTAL CONSTIPATION 06/07/16 09:00 Polyethylene Glycol (Miralax) 17 gm BID PO 06/08/16 21:00 06/19/16 19:22 Hydrochlorothiazide (Microzide) 12.5 mg DAILY PO 06/10/16 09:00 06/21/16 09:11 Enoxaparin Sodium (Lovenox Inj) 40 mg Q24H SQ 06/11/16 17:00 Hold 06/17/16 17:00 Carvedilol (Coreg) 3.125 mg Q12HR PO 06/16/16 21:00 06/21/16 09:11 Acetaminophen/ Hydrocodone Bitart (Opdyke 10-325 Mg) 1 tab Q4H PRN PO PAIN SCALE 1 TO 5 06/19/16 17:30 Acetaminophen/ Hydrocodone Bitart (Opdyke 10-325 Mg) 2 tab Q4H PRN PO PAIN SCALE 6 TO 10 06/19/16 17:30 Acetaminophen (Tylenol) 650 mg Q4H PRN PO TEMPERATURE > 101.5 F 06/19/16 17:30 Famotidine (Pepcid) 20 mg BID PO 06/20/16 09:00 06/21/16 09:11 Levetriacetam (Keppra Liq) 1,000 mg Q12HR NG 06/20/16 21:00 06/21/16 09:11 Phenytoin (Dilantin Liq) 100 mg Q12HR PO 06/21/16 21:00 (Allison Mccullough) Medical Decision Making MDM Remarks 66 y/o female with subarachnoid hemorrhage suspected intracranial aneurysm, subarachnoid bleed improving CTA Head x 2 negative for aneurysm, Cerebral angiography neg for aneurysm, repeat cerebral angio 06/05/16 again neg for intracranial aneurysm TCD and CTA Head 06/10 with vasospasm, s/p intra-arterial administration of verapamil evidence of hydrocephalus following clamping of ventriculostomy drain s/p placement of left ventriculoperitoneal shunt for hydrocephalus 06/19/16, and removal of right ventriculostomy drain (Allison Mccullough) Plan Plan Remarks neurologically doing well, cont dc planning to rehab dc staple 07/04/16 (Allison Mccullough) Attending Statement The exam, history, and the medical decision-making described in the above note were completed with the assistance of the mid-level provider. I reviewed and agree with the findings presented. I attest that I had a [id number] encounter with the patient on the same day, and personally performed and documented my assessment and findings in the medical record. (Arcenio Mtz MD) Allison Mccullough Jun 21, 2016 15:04 Arcenio Mtz MD Jun 24, 2016 20:44
[2016-06-21] MEDS ORDERED: POTASSIUM PHOSPHATE INJ 30 MMOL in SODIUM CHLOR 0.9% 250 ML INJ 250 ML IV PRN (17:15)
[2016-06-21] MEDS ORDERED: MAGNESIUM SULFATE INJ 4 GM in SODIUM CHLORIDE 0.9% INJ 92 ML IV PRN (17:15)
[2016-06-21] MEDS ORDERED: MAGNESIUM OXIDE 400 MG TAB PO PRN (17:15)
[2016-06-21] MEDS ORDERED: POTASSIUM CHLOR 40 MEQ PREMIX 100 ML IV PRN ×2 (17:15)
[2016-06-21] MEDS ORDERED: POTASSIUM PHOSPHATE MONOBASIC 500 MG TAB PO/TUBE PRN (17:15)
[2016-06-21] MEDS ORDERED: POTASSIUM CHLOR 20 MEQ PREMIX 100 ML IV PRN ×2 (17:15)
[2016-06-21] MEDS ORDERED: MORPHINE SULFATE 4 MG/ML INJ IV PRN (17:15)
[2016-06-21] MEDS ORDERED: POTASSIUM PHOSPHATE MONOBASIC 500 MG TAB PO PRN (17:15)
[2016-06-21] MEDS ORDERED: ACETAMINOPHEN 325 MG TAB PO PRN (17:15)
[2016-06-21] MEDS ORDERED: SENNOSIDES 8.6 MG TAB PO PRN (17:15)
[2016-06-21] MEDS ORDERED: RESP: ALBUTEROL 2.5 MG/3 ML NEB (PRN) INH (17:15)
[2016-06-21] MEDS ORDERED: ONDANSETRON HCL 4 MG/2 ML VIAL IV PRN (17:15)
[2016-06-21] MEDS ORDERED: SODIUM PHOSPHATE INJ 30 MMOL in SODIUM CHLOR 0.9% 250 ML INJ 240 ML IV PRN (17:15)
[2016-06-21] MEDS ORDERED: ACETAMINOPHEN/HYDROcodone 325 MG/5 MG TAB PO PRN (17:15)
[2016-06-21] MEDS ORDERED: MAGNESIUM SULFATE INJ 2 GM in SODIUM CHLORIDE 0.9% INJ 96 ML IV PRN (17:15)
[2016-06-21] MEDS ORDERED: SODIUM CHLORIDE 0.9% FLUSH 10 ML FLUSH IV FLUSH PRN (17:15)
[2016-06-21] MEDS ORDERED: GLUCAGON 1 MG/ML VIAL OTHER PRN (17:30)
[2016-06-21] MEDS ORDERED: LABETALOL HCL 100 MG/20 ML VIAL IV PUSH PRN (17:30)
[2016-06-21] MEDS ORDERED: DEXTROSE 50% IN WATER 50 ML VIAL(D50) IV PUSH PRN (17:30)
[2016-06-21] MEDS ORDERED: NITROGLYCERIN 2% OINT 1 GM PACKET TOPICAL PRN (17:30)
[2016-06-21] MEDS: PHENYTOIN SUSP 100 MG/4 ML CUP PO SCH (20:04)
[2016-06-21] MEDS: SODIUM CHLORIDE 0.9% FLUSH 10 ML FLUSH IV FLUSH SCH (20:05)
[2016-06-21] MEDS: PRAVASTATIN SOD 40 MG TAB PO SCH (20:05)
[2016-06-21] MEDS: DOCUSATE SODIUM 100 MG CAP PO SCH (20:06)
[2016-06-22] VITALS (10 sets, daily range): BP systolic 136–166; BP diastolic 62–74; PULSE 81–102; RESP 16–18; TEMP 97.8–98.7; O2SAT 95–99
[2016-06-22 04:47] LABS: BASOPHIL # 0.1 TH/MM3 (0-0.2); BASOPHIL % 0.7 % (0.0-2.0); EOSINOPHIL # 0.1 TH/MM3 (0-0.4); EOSINOPHIL % 0.8 % (0.0-4.0); HEMO FLAGS DIFF FINAL; LYMPH % 13.1 % (9.0-44.0); MEAN CELL VOLUME 89.2 FL (80.0-100.0); MEAN CORPUSCULAR HEMOGLOBIN 30.3 PG (27.0-34.0); MONO % 9.9 % (0.0-8.0); NEUT % 75.5 % (16.0-70.0); PLATELET COUNT 543 TH/MM3 (150-450); RED CELL DISTRIBUTION WIDTH 14.4 % (11.6-17.2)
[2016-06-22 04:54] LABS: APTT (PATIENT) 26.8 SEC (24.3-30.1); INTERNATIONAL NORMALIZED RATIO 0.9 RATIO; PROTHROMBIN TIME - PATIENT 10.4 SEC (9.8-11.6)
[2016-06-22 05:05] LABS: ALKALINE PHOSPHATASE 143 U/L (45-117); ALT (GPT) 48 U/L (10-53); ANION GAP 6 MEQ/L (5-15); AST (GOT) 20 U/L (15-37); BICARBONATE 33.7 MEQ/L (21.0-32.0); BLOOD UREA NITROGEN 7 MG/DL (7-18); CHLORIDE 99 MEQ/L (98-107); GLOMERULAR FILTRATION RATE 223 ML/MIN (>89); POTASSIUM 3.5 MEQ/L (3.5-5.1); SODIUM (NA) 139 MEQ/L (136-145); TOTAL BILIRUBIN ADULT 0.2 MG/DL (0.2-1.0)
[2016-06-22] MEDS: INSULIN NovoLIN REGULAR SUPPLEMENTAL SCALE SQ SCH ×3 (06:00→18:00)
[2016-06-22] MEDS ORDERED: PANTOPRAZOLE SODIUM 40 MG VIAL IV SCH (09:00)
[2016-06-22] MEDS: POLYETHYLENE GLYCOL 17 GM PKG PO SCH (09:00)
[2016-06-22] MEDS: SENNOSIDES SYRUP 8.8 MG/5 ML CUP PO/TUBE SCH (09:00)
--- NOTE | 2016-06-22 09:00 | HHI.CCPN ---
Subjective Remarks/Hospital Course Hospital Course: 66 years old female was transferred to [facility] from [facility] in [place]. Patient and her was vacationing from [place]. They aware on the train while at around 2:00 patient started having severe headache and then vomited and then had a syncopal episode. Patient was transported to [facility] in [place]. On the way to the hospital, patient started having respiratory problem and patient was subsequently intubated. Patient has history of atrial fibrillation and hypertension and on Xarelto 20 mg daily, atorvastatin, HCTZ/ losartan, metoprolol. CT scan of the brain done at [facility] in [place] shows diffuse subarachnoid hemorrhage with intraventricular extension and early obstructive hydrocephalus developing. Dr. Mtz, neurosurgeon at [place] was contacted and accepted transfer. 05/28: slight improvements, withdrawing to deep nailbed pressure. on cardene for hypertension. plan for angio today or tomorrow. 05/29: worsening neuro exam overnight. repeat head CT with effacement, slight compression of the brainstem. angiogram overnight without evidence of aneurysm or vasospasm. more hypotensive this morning on norepinephrine. flaccid x 4, no cough or gag. propofol turned off at 0600. 05/30: EEG with evidence of seizures. Keppra increased yesterday and Cerebryx loaded. this morning, on increasing vasopressor requirements. added phenylephrine on top of maximal levophed, vasopressin. echo with prelim hyperdynamic biventricular function. ICP stable. poor neurologic function. posturing in UEs. 05/31: vasopressors weaned overnight significantly, but remains on some support. repeat EEG improved with no evidence of ongoing ictal activity. ICP stable. this morning, no longer following commands in LEs, no longer posturing in upper extremities. discussed care with Dr. Mtz, will plan to go to CT/CTA brain to r /o vasospasm.06/01: CTA yesterday without evidence of vasospasm. TCDs negative today for vasospasm. still will intermittently follow commands in LEs, nothing in upper extremities. Na still very high, 160s. ICP well controlled. off vasopressors. 06/02: Na coming down slowly. TCDs pending for today. neuro exam stable. phenytoin level borderline high. 06/03: Tmax 100.4. Currently 99.1. Tolerating tube feeds at goal. Positive BM. Neuro exam remains stable. 3/6: Remains sedated, orally intubated on mechanical ventilation. Ventriculostomy in place. Cardene drip at 1 mg/h 06/05: Remains sedated, orally intubated on mechanical ventilation. Ventriculostomy in place. 06/06: AM laboratories currently pending. Afebrile. Noted cerebral angiogram without signs of vasospasm. 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 Dr. Mtz recommends per contains tracheostomy per RN. Tolerating tube feeding. 06/07: Tmax 99.5. Currently afebrile. Plan for cutaneous tracheostomy today. Ordered for PEG tube for a.m. Neurological unchanged with extension lower extremities flaccid upper extremities. 06/08: Tmax 100.8. This morning with acute episode acutely desaturated. Chest X-ray shows bilateral lower lobe infiltrates/pleural effusions. +600 cc past 24 hours. No bowel movement since 06/05. Status post PEG tube yesterday without complication. 06/09: Afebrile. Desaturate yesterday requiring bronchoscopy. Thick white secretions noted throughout right in left lobes. Actually hard yellow secretions that coated the scope required multiple washings at end of ET tube probably causing desaturation. Currently down to 55%. Plan for tracheostomy today at 3 PM. 06/10 moderate vasospasm on TCD's on the right Lind[place]ard ratio 3.7, severe vasospasm on CTA 06/11: Eyes open spontaneously tracking intermittently following commands by wiggling toes. s/p intraarterial administration of verapamil for vasospasm 06/10. 06/12: Fresh pus draining from subcutaneous tissue at PEG insertion site on abdominal wall. Cultures sent, abx started. 06/13: Purulent PEG site drainage growing Staph and a GNR. Continue Vanc and PIP /KORTNEY. Site looks engine cleaner today. 06/14: Wound with MSSA and Serratia. Will narrow to levaquin. Leukocytosis has resolved. Less responsive today, will order TCDs. 06/15: Diuresis now, review specific gravity. May be DI. 06/16: No DI. Will hold ARB while we are trying to raise MAP. 06/17: Breathing comfortably on trach collar/T-piece set-up for 48 hours now. Afebrile and leukocytosis has resolved on levaquin. 06/18: Hydrocephalus on CT, consistent with her ventric challenges. NS to insert BRACE END [employer] FORMER shunt. 06/19: Breathing comfortably on trach collar. 06/20: Status post left BRACE [employer] FORMER shunt yesterday. CURRENT TEMPERATURE 95. Awake with eyes open. Tube feeds were resumed today 06/21: Resting In bed. Eyes are open awake. Tolerating TP trials. Afebrile. 06/22: Resting in bed. Head towards left side. Tolerating TP trials 3 days. Positive BM. Appears comfortable in bed Objective Vital Signs Date Time Temp Pulse Resp B/P Pulse Ox O2 Delivery O2 Flow Rate FiO2 06/22/16 08:46 96 T-piece 28 06/22/16 06:00 90 06/22/16 04:00 98.2 16 166/74 06/21/16 20:35 5.00 Intake and Output 06/21/16 06/21/16 06/21/16 07:59 15:59 23:59 Intake Total 1214 ml 1088 ml 410 ml Output Total 300 ml 325 ml 925 ml Balance 914 ml 763 ml -515 ml Result Diagram: 06/22/16 0435 06/22/16 0435 Other Results Microbiology Date/Time Procedure Status Source Growth 06/19/16 17:15 Gram Stain - Final Complete Cerebral Spinal Fluid Shunt Fluid 06/19/16 17:15 CSF Culture - Final Complete Cerebral Spinal Fluid Shunt Fluid NO GROWTH IN 72 HRS.--AEROBICALLY OR ... 06/19/16 17:15 Fungal Smear - Final Resulted Cerebral Spinal Fluid Shunt Fluid NO FUNGAL ELEMENTS SEEN. 06/19/16 17:15 Fungal Culture Resulted Cerebral Spinal Fluid Shunt Fluid Pending 06/19/16 17:15 Acid Fast Stain - Final Resulted Cerebral Spinal Fluid Shunt Fluid NO ACID FAST BACILLI SEEN 06/19/16 17:15 Mycobacterial Culture Resulted Cerebral Spinal Fluid Shunt Fluid Pending Imaging Last Impressions Head CT 06/20/16 0000 Signed Impressions: Service Date/Time: Monday, June 20, 2016 05:34 - CONCLUSION: Left frontal ventriculostomy catheter placement as described above with a small amount of pneumocephalus now seen. Intraventricular blood is stable. Kuldip Nicolas MD Transcranial Doppler Study Complete 06/14/16 0000 Signed Impressions: Service Date/Time: May 11:29 - CONCLUSION: Overall there has been improvement better on the right than the left. Careful followup is suggested because of the elevated velocities home the left. Dillon Zaragoza MD FACR Chest X-Ray 06/11/16 0600 Signed Impressions: Service Date/Time: Saturday, June 11, 2016 04:00 - CONCLUSION: No change of bilateral hazy lower lung zone opacity indicating pulmonary edema versus pleural effusions. David Powell MD Neck CTA 06/10/16 0000 Signed Impressions: Service Date/Time: Friday, June 10, 2016 10:50 - CONCLUSION: There is beadng of the distal internal carotid bilaterally likely related to spasm.. Lauro Mcbride MD Head CTA 06/10/16 0000 Signed Impressions: Service Date/Time: Friday, June 10, 2016 10:50 - CONCLUSION: Suspected diffuse vasospasm. Lauro Mcbride MD Liver Ultrasound 06/08/16 0000 Signed Impressions: Service Date/Time: Wednesday, June 08, 2016 14:00 - CONCLUSION: Ultrasound appearance of the liver and surrounding structures within normal limits. Lauro Logan MD CT Angiography 06/08/16 0000 Signed Impressions: Service Date/Time: Wednesday, June 08, 2016 11:54 - CONCLUSION: 1. Bilateral pleural effusions with compressive atelectasis. 2. No pulmonary embolus. Lauro Logan MD Abdomen/Pelvis CT 06/08/16 0000 Signed Impressions: Service Date/Time: Wednesday, June 08, 2016 11:54 - CONCLUSION: 1. There is mild distention of the colon but there are no findings to indicate bowel obstruction. A small volume of free fluid is present within the abdomen and pelvis. 2. Anasarca along with a presacral edema. 3. Small to moderate-sized bilateral pleural effusions with associated compressive atelectasis. Lauro Lamb MD Cerebral Arteriogram 06/05/16 0000 Signed Impressions: Service Date/Time: Sunday, June 05, 2016 00:00 - CONCLUSION: 1. No evidence of aneurysm 2. 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 I do not see a mass. Etiology for the hemorrhage is not apparent. Dillon Zaragoza MD FACR Brain MRI 06/01/16 0000 Signed Impressions: Service Date/Time: Wednesday, June 01, 2016 12:14 - CONCLUSION: 1. Intraventricular blood, negative for mass. Dillon Zaragoza MD FACR Objective Remarks GENERAL: 66 year old female, critically ill currently trached on T piece SKIN: Warm and dry. No rash HEAD: Incisions dry. Status post left [employer] shunt. Sutures from right EVD intact without erythema EYES: PERRL. 2 mm bilaterally and reactive. No injection or drainage. NECK: Supple, trachea midline. Tracheostomy site intact, clean. No JVD CARDIOVASCULAR: RRR. S1, S2 no S4. Without murmur. RESPIRATORY: Essentially clear to auscultation bilaterally without wheezes rales or rhonchi GASTROINTESTINAL: Abdomen soft, non-tender, nondistended. PEG tube site clean. Active bowel sounds. MUSCULOSKELETAL: With trace nonpitting lower extremity edema Neuro: Uses both arms spontaneously, weak withdrawals in her bilateral LEs. Eyes are spontaneously open. Procedures EVD - 05/27 - Smith Left [employer]ACE [employer] FORMER shunt - 06/19 - Smith #8 Shiley percutaneous tracheostomy - Debby A/P Problem List: (1) Subarachnoid hemorrhage ICD Code: I60.9 Status: Acute (2) Atrial fibrillation ICD Code: I48.91 Status: Acute (3) Coagulopathy ICD Code: D68.9 Status: Acute (4) Respiratory failure ICD Code: J96.90 Status: Acute (5) Hypertension ICD Code: I10 Status: Acute Assessment and Plan Neuro/Psych: Postop day #3 left BR[employer] shunt by Dr. Mtz Spontaneous subarachnoid bleed - brainstem right greater than left with severe vasospasm Intraventricular hemorrhage - third and posterior lateral ventricles Intracranial hypertension Malignant cerebral edema Seizures --CT head subarachnoid hemorrhage, MRI/A revealed no mass/source of bleeding --EEG 05/31 revealed moderate encephalopathy. No epileptiform activity q1h neuro checks Nimodipine 60 mg every 4 hours for 21 days Four-vessel angiogram 05/29 negative for aneurysm of vasospasm. No FMD - unable to access left vertebral artery --s/p 3% nacl. slowly normalizing Na, 2% sodium chloride discontinued 06/19 --Keppra 1000 twice a day and Dilantin 100mg iv q12h.. Last Tylenol 2.1 but no signs of seizures --Dr. Mtz: neurosurgery --CT/CTA 05/31: no evidence of vasospasm. --Negative cerebral angio to confirm 06/06. -- 06/10 severe vasospasm in the most right cerebral arteries. Status post intra- arterial verapamil treatment by IR 06/10. Repeat TCD Respiratory: Acute Hypoxic and hypercarbic respiratory failure --Currently on T piece 5 days Vent bundle --Duo nebs every 6 hours as needed bronchodilator therapy Head of bed elevated Wean FiO2 for goal SPO2 greater than 92% -CTA chest negative for PE. Positive bilateral lower lobe atelectasis and small to moderate bilateral pleural effusions Cardiovascular: History of hypertension Dyslipidemia History of atrial fibrillation/chronic Off vasopressors. - severe vasospasm. Target systolic blood pressure 160-180. Remains spontaneously on this range without vasopressors Nimodipine 60 mg every 4 21 days completed - Pravachol 40 mg by mouth daily to be continued for dyslipidemia -Home medications are losartan/HCTZ 100/12.5 daily and metoprolol 25 mg twice a day. On Coreg 6.25 mg twice a day and HCTZ 12.5 mg daily for hypertension -Echocardiogram 05/31 revealed EF 65%. Moderate TR. Renal: -- Currently on normal saline with 20 mEq KCl 100 cc an hour -- Strict I/Os Avoid hypovolemia - Follow BMP in a.m. FEN/GI: Hypernatremia - resolving Acute protein calorie malnutrition- mild Hypokalemia tube feeds, Jevity 1.5, goal 50 cc an hour to be continued -Pepcid twice a day for GI prophylaxis -Colace/Senokot/MiraLAX twice a day for bowel regimen ICU electrolyte protocol Daily BMP Heme/ID: Coagulopathy secondary to Xarelto anticoagulation use for atrial fibrillation- resolved. Leukocytosis Daily CBC Status post K [facility] Does not meet transfusion triggers at this time --holding Eliquis given SAH. Endocrine: Hyperglycemia of critical illness -- SSI, every 6 hours, medium scale ID PEG site infection Staph aureus pneumonia -Culture sent from wound grew out staph aureus and -Azactam, Levaquin, Vanc started 06/12 -> narrow to levaquin 14 day course. This is been completed. Postoperative Ancef 3 dosages per neurosurgery Prophylaxis: GI Prophylaxis Pepcid q12h. DVT Prophylaxis --SCDs Holding pharmacologic DVT prophylaxis given intracranial hemorrhage, EVD in place. Start once cleared by Neurosurgery Lines: 05/27 right IJ triple lumen catheter removed 06/06. Currently PIV [facility] Critical Care: The total care time was 35 minutes. Time to perform other separately billable procedures was not included in the critical care time. Edd Crow MD Jun 22, 2016 09:00
[2016-06-22] MEDS ORDERED: hydrALAZINE HCL 20 MG/ML VIAL IV PUSH PRN (10:00)
[2016-06-22] MEDS ORDERED: POTASSIUM CHLORIDE 25 MEQ EFFERVESCENT TAB PO ONE (10:00)
[2016-06-22] MEDS ORDERED: CARVEDILOL 3.125 MG TAB PO SCH (10:00)
[2016-06-22] MEDS: FAMOTIDINE 20 MG TAB PO SCH (10:11)
[2016-06-22] MEDS: levETIRAcetam 500 MG/5 ML UDC NG SCH (10:11)
[2016-06-22] MEDS: DOCUSATE SODIUM 100 MG CAP PO SCH (10:11)
[2016-06-22] MEDS: PHENYTOIN SUSP 100 MG/4 ML CUP PO SCH (10:11)
[2016-06-22] MEDS: HYDROCHLOROTHIAZIDE 12.5 MG CAP PO SCH (10:12)
[2016-06-22] MEDS: ARTIFICIAL TEARS OPTH SOLN 15 ML BTL EACH EYE SCH ×2 (10:13→13:00)
[2016-06-22] MEDS: SODIUM CHLORIDE 0.9% FLUSH 10 ML FLUSH IV FLUSH SCH (10:13)
--- NOTE | 2016-06-25 12:19 | RADRPT ---
EXAM DATE/TIME: 06/10/2016 11:51 This report includes an Addendum and supersedes previous reports for this exam. [facility] COMPARISON: CT BRAIN W/O CONTRAST, June 20, 2016, 5:34. ANGIOGRAM, CEREBRAL WO ARCH, May 28, 2016, 23:54. INDICATIONS : Patient in need of diagnostic cerebral angiogram with arch for further evaluation. MEDICAL HISTORY : Atrial Fibrillation on Xarelto High Cholesterol Hypertension SURGICAL HISTORY : Unobtainable. ENCOUNTER: Subsequent ACUITY: 2 weeks PAIN SCORE: Nonresponsive. FLUORO TIME: minutes IMAGE SERIES: 16 ACCESS SITE: Right Femoral artery CONTRAST: 100 cc Visipaque (iodixanol) MEDICATION(S): 1.) 40 mg Verapamil IART PROCEDURE : 1. Ultrasound-guided puncture of the access site. 2. Conscious sedation with continuous EKG and Oximetry monitoring. 3. Angiography of the right internal carotid artery 4. Angiography of the left internal carotid artery 5. Angiography of the right vertebral artery 6. Angiography of the left vertebral artery 7. Infusion for spasmolysis x4 The risks, benefits and alternatives to the procedure were explained and verbal and written consent w as obtained. The site was prepped in sterile fashion. Full sterile technique was used, including ca p, mask, sterile gloves and gown and a large sterile sheet. Hand hygiene and 2% chlorhexidine and/or betadine/alcohol prep was utilized per protocol for cutaneous antisepsis. The skin and subcutaneous tissues were infiltrated with local anesthetic solution. With ultrasound and fluoroscopic guidance the selected artery was punctured and a vascular sheath was placed Angiography was performed of the right internal carotid artery with selection using a JOSE ROBERTO 2 catheter. This demonstrated mild vasospasm with prolonged cerebral circulation time. 10 mg of proximal or infus ed in this vessel. Left vertebral artery was then catheterized and again this demonstrates spasm with termination in the PICA branch which can be seen as a normal variation. 5 mg of TPA were placed within this vessel. The dominant right vertebral artery was then catheterized again demonstrating vasospasm. 10 mg of TPA was infused in this vessel is well. Finally the left internal carotid artery was catheterized which demonstrated the most severe spasm an d 15 mg of TPA was infused. There was improved appearance of the vessel following the infusion. The puncture site was closed with manual pressure and hemostasis was obtained. The patient tolerated the procedure well and there were no complications. Conscious sedation was performed with the prescribed dosages and duration as above in the presence of an independent trained radiology nurse to assist in the monitoring of the patient. EKG and oximetry remained stable throughout the procedure. CONCLUSION: 1. Uncomplicated spasmolysis in all intracranial vessels Brandon Herrera MD on June 25, 2016 at 11:11 Board Certified Radiologist. This report was verified electronically. ADDENDUM: The body of the report is incorrect and the infused medication was verapamil. This was slowly infused in each vessel to prevent hypotension which did not occur during the injection in any vessel. Brandon Herrera MD on June 26, 2016 at 17:04 Board Certified Radiologist. This report was verified electronically.
== END 2016-06-22 18:45 | DRG 3 ==
LOC: NEPC 19:26 → NEDA 20:18 → N03B 20:51
PROVIDERS: ADMIT Internal Medicine Critical Care Medicine; ATTEND Internal Medicine Critical Care Medicine
PROC: 5A1955Z Respiratory Ventilation, Greater than 96 Consecutive Hours (ICD-10-PCS; principal; 2016-05-27)
PROC: 009630Z Drainage of Cerebral Ventricle with Drainage Device, Percutaneous Approach (ICD-10-PCS; 2016-05-27)
PROC: 0BH17EZ Insertion of Endotracheal Airway into Trachea, Via Natural or Artificial Opening (ICD-10-PCS; 2016-05-27)
PROC: 02HV33Z Insertion of Infusion Device into Superior Vena Cava, Percutaneous Approach (ICD-10-PCS; 2016-05-27)
PROC: 03HY32Z Insertion of Monitoring Device into Upper Artery, Percutaneous Approach (ICD-10-PCS; 2016-05-27)
PROC: 03HY32Z Insertion of Monitoring Device into Upper Artery, Percutaneous Approach (ICD-10-PCS; 2016-05-30)
PROC: 0DH68UZ Insertion of Feeding Device into Stomach, Via Natural or Artificial Opening Endoscopic (ICD-10-PCS; 2016-06-07)
PROC: 0DB68ZX Excision of Stomach, Via Natural or Artificial Opening Endoscopic, Diagnostic (ICD-10-PCS; 2016-06-07)
PROC: 0B978ZX Drainage of Left Main Bronchus, Via Natural or Artificial Opening Endoscopic, Diagnostic (ICD-10-PCS; 2016-06-08)
PROC: 0B948ZX Drainage of Right Upper Lobe Bronchus, Via Natural or Artificial Opening Endoscopic, Diagnostic (ICD-10-PCS; 2016-06-08)
PROC: 0B958ZX Drainage of Right Middle Lobe Bronchus, Via Natural or Artificial Opening Endoscopic, Diagnostic (ICD-10-PCS; 2016-06-08)
PROC: 0BCB8ZZ Extirpation of Matter from Left Lower Lobe Bronchus, Via Natural or Artificial Opening Endoscopic (ICD-10-PCS; 2016-06-09)
PROC: 0BC88ZZ Extirpation of Matter from Left Upper Lobe Bronchus, Via Natural or Artificial Opening Endoscopic (ICD-10-PCS; 2016-06-09)
PROC: 0BC78ZZ Extirpation of Matter from Left Main Bronchus, Via Natural or Artificial Opening Endoscopic (ICD-10-PCS; 2016-06-09)
PROC: 0BC68ZZ Extirpation of Matter from Right Lower Lobe Bronchus, Via Natural or Artificial Opening Endoscopic (ICD-10-PCS; 2016-06-09)
PROC: 0B113F4 Bypass Trachea to Cutaneous with Tracheostomy Device, Percutaneous Approach (ICD-10-PCS; 2016-06-10)
PROC: 00160J6 Bypass Cerebral Ventricle to Peritoneal Cavity with Synthetic Substitute, Open Approach (ICD-10-PCS; 2016-06-19)
DX: I60.9 Nontraumatic subarachnoid hemorrhage, unspecified (principal); G93.6 Cerebral edema; G93.40 Encephalopathy, unspecified; N17.9 Acute kidney failure, unspecified; J15.211 Pneumonia due to Methicillin susceptible Staphylococcus aureus; J90 Pleural effusion, not elsewhere classified; R57.8 Other shock; R57.9 Shock, unspecified; J96.92 Respiratory failure, unspecified with hypercapnia; J96.01 Acute respiratory failure with hypoxia; J96.02 Acute respiratory failure with hypercapnia; E87.0 Hyperosmolality and hypernatremia; G91.1 Obstructive hydrocephalus; I16.1 Hypertensive emergency; E44.1 Mild protein-calorie malnutrition; J98.11 Atelectasis; E87.3 Alkalosis; I67.848 Other cerebrovascular vasospasm and vasoconstriction; K94.22 Gastrostomy infection; I48.91 Unspecified atrial fibrillation; G93.2 Benign intracranial hypertension; R13.10 Dysphagia, unspecified; I10 Essential (primary) hypertension; R73.9 Hyperglycemia, unspecified; R79.1 Abnormal coagulation profile; E78.00 Pure hypercholesterolemia, unspecified; I61.5 Nontraumatic intracerebral hemorrhage, intraventricular; K29.70 Gastritis, unspecified, without bleeding; J98.09 Other diseases of bronchus, not elsewhere classified; R56.9 Unspecified convulsions; E78.5 Hyperlipidemia, unspecified; E87.6 Hypokalemia; I07.1 Rheumatic tricuspid insufficiency; I77.3 Arterial fibromuscular dysplasia; T45.515A Adverse effect of anticoagulants, initial encounter; A49.01 Methicillin susceptible Staphylococcus aureus infection, unspecified site; B96.89 Other specified bacterial agents as the cause of diseases classified elsewhere; Z68.30 Body mass index [BMI] 30.0-30.9, adult; Z79.01 Long term (current) use of anticoagulants
CPT/HCPCS: 31600; 31624; 36215; 36216; 36217; 36218; 36223; 36224; 36225; 36226; 36556; 36620; 61210; 61650; 61651; 70450; 70496; 70498; 70553; 71010; 71275; 72156; 74177; 76705; 76937; 80048; 80053; 80074; 80076; 80185; 80202; 81001; 81003; 82140; 82533; 82550; 82552; 82805; 82945; 82948; 83605; 83735; 83930; 83935; 84100; 84132; 84155; 84157; 84295; 84300; 84443; 84484; 84550; 85007; 85025; 85027; 85610; 85730; 86403; 86850; 86900; 86901; 87015; 87040; 87070; 87077; 87102; 87116; 87147; 87186; 87205; 87206; 87641; 88112; 88305; 89051; 93005; 93306; 93886; 94002; 94003; 94640; 94664; 95819; 96374; A9579; C1769; C1887; C1894; C9113; C9132; J0171; J0360; J0461; J0690; J1580; J1650; J1720; J1953; J1956; J2150; J2250; J2270; J2370; J2405; J3010; J3370; J3475; J3480; J7030; J7040; J7050; J7120; Q2009; Q9967